=== PATIENT | male | born 1945 | race Caucasian/White ===

== ENCOUNTER 2020-10-25 19:05 | Emergency (ER) | payer BC, MEDICARE ==
[~2020-10-25] VITALS: Ht 193 cm; Wt 80.1 kg
[~2020-10-25 19:05] MED LIST: ASP81TEC PO; ATRV10T PO; C250T PO; CHOL10003 PO; MULT-608 PO; OMG1KC PO
--- NOTE | 2020-10-25 19:21 | ED Upper Extremity ---
General Chief Complaint: Upper Extremity Stated Complaint: LEFT ELBOW INJURY Source: patient History of Present Illness Date Seen by Provider: Oct 25, 2020 Time Seen by Provider: 19:14 Initial Comments 75 yo male that fell yesterday when one of his bird dogs ran after a cat. He was knocked down and hit back of his head and left elbow. He did not lose consciousness. He was able to get bleeding controlled on his scalp and on the left elbow after holding pressure. Then today he was working outdoors all day and did fine without bleeding or problems. Tonight he went to [employer] for supper and accidentally hit his elbow and it started bleeding again. He was unable to get the bleeding to stop tonight. He had his last tetanus 3-4 years ago. He takes a baby aspirin a day but no stronger blood thinners. Location Injury Occurred: Home Onset: yesterday Severity: mild Pain/Injury Location: left elbow Method of Injury: fell Modifying Factors: Worse With Movement (bleeds more as he moves his arm) Allergies and Home Medications Allergies Coded Allergies: No Known Drug Allergies (Unverified , 03/11/11) Home Medications Ascorbic Acid 250 Mg Tab, 500 MG PO DAILY, (Reported) Aspirin 81 Mg Tabec, 81 MG PO DAILY, (Reported) Atorvastatin Calcium 10 Mg Tablet, 1 EACH PO HS, (Reported) Cephalexin 500 Mg Capsule, 500 MG PO TID Prescribed by: LYNN ANGULO on 10/25/202020 Cholecalciferol 1,000 Unit Tablet, 1,000 UNIT PO DAILY, (Reported) Multivitamins 1 Tab Tablet, 1 TAB PO DAILY, (Reported) [place] 3 Polyunsat Fatty Acids 1,000 Mg Cap, 1,000 MG PO BID, (Reported) Patient Home Medication List Home Medication List Reviewed: Yes Review of Systems Constitutional: No chills, No fever EENTM: other (superficial abrasion on his scalp from fall yesterday); No epistaxis, No nose congestion Respiratory: no symptoms reported Cardiovascular: no symptoms reported Gastrointestinal: no symptoms reported Genitourinary: no symptoms reported Musculoskeletal: No joint pain (no pain at elbow joint), No muscle pain Skin: see HPI, other (laceration to left elbow) Psychiatric/Neurological: Denies Headache, Denies Numbness, Denies Paresthesia, Denies Seizure Past Vzkiowa-Capool-Wmkaol Hx Past Med/Social Hx: Reviewed Nursing Past Med/Soc Hx Past Medical History Respiratory: No Cardiac: No Neurological: No Reproductive Disorders: No Musculoskeletal: Yes Arthritis Physical Exam Vital Signs Vital Signs - First Documented 10/25/20 19:20 Temp 36.9 Pulse 71 Resp 16 B/P (MAP) 155/84 (107) Pulse Ox 97 O2 Delivery Room Air Capillary Refill : Height, Weight, BMI Height: '" Weight: lbs. oz. kg; BMI Method: General Appearance: WD/WN, no apparent distress HEENT: PERRL/EOMI, pharynx normal, other (no CSF otorrhea or rhinorrhea. superficial abrasions to occiput and top of head) Neck: non-tender, full range of motion, supple, normal inspection Cardiovascular: normal peripheral pulses Elbow/Forearm: non-tender, swelling (mild swelling and 2.6 cm stellate laceration with skin flap on left elbow) Neurologic/Tendon: normal sensation, normal motor functions, normal tendon functions Neurologic/Psychiatric: crown blocker II-XII nml as tested, no motor/sensory deficits, alert, oriented x 3 Skin: normal color, warm/dry Procedures/Interventions Wound Location: Upper Extremities (left elbow) Wound Length (cm): 2.6 Wound's Depth, Shape: stellate, sub Q Wound Explored: clean Anesthesia: Lidocaine w/ Epi (2%) Volume Anesthetic (ccs): 6 Suture: Ethlion Suture Size: 4-0 Number of Sutures: 4 Layer Closure?: 1 Sterile Dressing Applied?: Yes Progress After obtaining verbal informed consent the patient had 2% lidocaine with epinephrine injected in the wound for anesthesia. He had a total of 5 mL injected with good anesthetic effect. The wound was further cleaned with chlorhexidine surgical scrub soap and direct visualization of the wound. No o bvious foreign body seen. No foreign body felt or palpated with instruments. Patient tolerated this well without any immediate complication. The wound edges were loosely approximated with 3 stitches along the main laceration and 1 stitch placed in the skin flap to help tack it in place. These were all simple interrupted stitches of 4-0 Ethilon. Patient tolerated procedure well without any immediate complication. Counseled on follow-up and return precautions. Advised to have stitches out in approximately 2 weeks or more to allow for healing over a joint surface. Started on cephalexin antibiotics tonight and will prescribe a week of 500 mg 3 times daily to help try and prevent infection. Progress/Results/Core Measures Results/Orders My Orders Orders - LYNN ANGULO MD Lidocaine/Epi 2% 1:100,000 (Xylocaine/Ep (10/25/20 19:42) Suture Set At Bedside (10/25/20 19:42) Wound Dressing-Ed (10/25/20 19:42) Cephalexin Capsule (Keflex Capsule) (10/25/20 20:15) Vital Signs/I&O 10/25/20 19:20 Temp 36.9 Pulse 71 Resp 16 B/P (MAP) 155/84 (107) Pulse Ox 97 O2 Delivery Room Air Progress Progress Note #1: Progress Note The laceration was bleeding and despite being cleaned and having pressure held by the nurse it continued oozing and bleeding. Counseled patient that without at least loosely closing the laceration that he ran a bigger risk for infection because it does gape open and would continue to break open with movement as it is over a joint surface. His tetanus is up-to-date. Progress Note #2: Progress Note Wound edges were loosely approximated with 3 stitches and then a fourth stitch was placed to help tack down the skin flap. He tolerated procedure well without any immediate complication. There were no obvious foreign bodies on visual exam. Started on Keflex tonight continue with a weeks worth of antibiotics to help try and prevent infection. Counseled on follow-up and return precautions. Advised to have stitches out after approximately 2 weeks. Departure Impression Primary Impression: Laceration of left elbow without foreign body Qualified Codes: S51.012A - Laceration without foreign body of left elbow, initial encounter Disposition: 01 HOME, SELF-CARE Condition: Stable Departure-Patient Inst. Decision time for Depature: 20:21 Referrals: NO,LOCAL PHYSICIAN (PCP) Primary Care Physician FADIA ESTEVEZ MD Patient Instructions: Laceration Repair With Stitches ED, Wound Care ED Add. Discharge Instructions: Keep clean, dry and covered for first 24 hours. Then you may remove the dressing and wash with soap and water but do not soak it. May apply antibiotic ointment and dressing to help keep it covered and clean at work or when might get dirty For next 2-3 nights you may try to elevate your elbow above heart level when sleeping and use ice 15-20 minutes every few hours as needed for pain and swelling. Take the antibiotics to help try and prevent infection but if you have increasing redness running up your arm, fever over 101 F, or pus draining from the wound then seek medical care as you may need IV antibiotics. The stitches may be removed after 14 days. All discharge instructions reviewed with patient and/or family. Voiced understanding. Scripts Cephalexin (Cephalexin) 500 Mg Capsule 500 MG PO TID for elbow laceration for 7 Days, #21 CAP 0 Refills Prov: LYNN ANGULO MD 10/25/20 Images Extremities-Upper 1 - Laceration (Stellate Y-shaped laceration into the subcutaneous tissue on the left elbow with a skin flap. 2.6 cm total length of laceration.) LYNN ANGULO MD Oct 25, 2020 19:21
[2020-10-25] MEDS ORDERED: LIDOCAINE/EPI 2% 1:100,00 (XYLOCAINE) 20 ML VIAL INJ STA (19:42)
[2020-10-25] MEDS ORDERED: CEPHALEXIN 250 MG (KEFLEX) CAP PO STA (20:15)
[2020-10-25] MEDS ORDERED: CEPH500C PO (20:21)
[2020-10-25 20:24] VITALS: BP 155/84
== END 2020-10-25 20:24 | disposition home or self-care (01) ==
LOC: EDUNIT# 19:05 → ER FS 19:09
DX: S51.012A Laceration without foreign body of left elbow, initial encounter (principal); S00.81XA Abrasion of other part of head, initial encounter; I10 Essential (primary) hypertension; Z79.82 Long term (current) use of aspirin; W22.8XXA Striking against or struck by other objects, initial encounter
CPT/HCPCS: 12002

== ENCOUNTER → 2021-03-31 | Outpatient (CLI) | payer BC, MEDICARE ==
[~2021-03-31] MED LIST changes: +CEPH500C PO
[2021-03-31 12:23] LABS: HEMATOCRIT 45 % (40-54); HEMOGLOBIN 15.2 g/dL (13.3-17.7); MEAN CORPUSCULAR HEMOGLOBIN 31 pg (25-34); MEAN CORPUSCULAR HGB CONC 34 g/dL (32-36); MEAN CORPUSCULAR VOLUME 91 fL (80-99); WHITE BLOOD COUNT 5.7 10^3/uL (4.3-11.0)
[2021-03-31 12:24] LABS: BASOPHILS % (AUTO) 0 % (0-10); EOSINOPHILS % (AUTO) 0 % (0-10); LYMPHOCYTES # (AUTO) 0.8 X 10^3 (1.0-4.0); LYMPHOCYTES % (AUTO) 14 % (12-44); MEAN PLATELET VOLUME 9.3 fL (9.0-12.2); MONOCYTES # (AUTO) 0.6 X 10^3 (0.0-1.0); MONOCYTES % (AUTO) 10 % (0-12); NEUTROPHILS # (AUTO) 4.3 X 10^3 (1.8-7.8); NEUTROPHILS % (AUTO) 76 % (42-75); PLATELET COUNT 205 10^3/uL (130-400)
[2021-03-31 12:25] LABS: ALBUMIN 3.7 GM/DL (3.2-4.5); BILIRUBIN,TOTAL 0.5 MG/DL (0.1-1.0); CALCIUM 8.6 MG/DL (8.5-10.1); CREATININE SERUM 0.9 MG/DL (0.60-1.30); POTASSIUM 4.2 MMOL/L (3.6-5.0); TOTAL PROTEIN 6.7 GM/DL (6.4-8.2)
== END ==
LOC: LAB FS 10:53
PROVIDERS: ATTEND Family Medicine
DX: U07.1 COVID-19 (principal)
CPT/HCPCS: 36415; 80053; 84484; 85025; 87636

== ENCOUNTER 2021-04-10 14:34 | Inpatient (IN) | payer BC, MEDICARE ==
[~2021-04-10] VITALS: Ht 195 cm; Wt 107.2 kg
--- OUTSIDE RECORDS SUMMARY | 2021-04-10 14:39 | XMS REPORT | Clinical Summary ---
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
--- NOTE | 2021-04-10 14:46 | ED Respiratory ---
General Chief Complaint: COVID19 Suspect/Confirmed Stated Complaint: SOB; COVID+ History of Present Illness Date Seen by Provider: Apr 10, 2021 Time Seen by Provider: 14:43 Initial Comments 75-year-old male presents via EMS with shortness of air and low oxygen level. History of present illness, diagnosed with Covid approximate 3 weeks ago (Dx at local Urgent care clinic?) and has been doing ok with minimal effect until the past few days when he started feeling poorly, has not seen his doctor but did take a Medrol Dosepak about 1 week ago. Last night he was started on oxygen (seemingly without a prescription) and he felt somewhat better. On EMS arrival his oxygen was not on correctly and saturations were in the low 80s on their initial assessment. Feeling better on arrival w oxygen, no other tx given. Allergies and Home Medications Allergies Coded Allergies: No Known Drug Allergies (Unverified , 03/11/11) Patient Home Medication List Home Medication List Reviewed: Yes Ascorbic Acid (Vitamin C) 250 Mg Tab, 500 MG PO DAILY, (Reported) Entered as Reported by: ABEBE RIVAS on 03/11/11816 Aspirin (Aspirin Ec 81 Mg) 81 Mg Tabec, 81 MG PO DAILY, (Reported) Entered as Reported by: ABEBE RIVAS on 03/11/11816 Atorvastatin Calcium (Lipitor 10 Mg) 10 Mg Tablet, 1 EACH PO HS, (Reported) Entered as Reported by: ABEBE RIVAS on 03/11/11816 Cephalexin (Cephalexin) 500 Mg Capsule, 500 MG PO TID Prescribed by: LYNN ANGULO on 10/25/202020 Cholecalciferol (Vitamin D) 1,000 Unit Tablet, 1,000 UNIT PO DAILY, (Reported) Entered as Reported by: ABEBE RIVAS on 03/11/11816 Multivitamins (Multiple Vitamin) 1 Tab Tablet, 1 TAB PO DAILY, (Reported) Entered as Reported by: ABEBE RIVAS on 03/11/11816 [place] 3 Polyunsat Fatty Acids (Fish Oil) 1,000 Mg Cap, 1,000 MG PO BID, (Reported) Entered as Reported by: ABEBE RIVAS on 03/11/11816 Review of Systems Review of Systems Constitutional: No chills, No fever; malaise, weakness EENTM: no symptoms reported Respiratory: No cough; short of breath; No wheezing Cardiovascular: No chest pain, No edema, No palpitations Gastrointestinal: No abdominal pain, No constipation, No diarrhea; loss of appetite; No nausea, No vomiting Musculoskeletal: No back pain, No joint pain Skin: No change in color, No lesions Psychiatric/Neurological: Denies Depressed, Denies Seizure Past Kgjyajz-Bwiqgi-Ltezkg Hx Patient Social History Tobacco Use?: No Seasonal Allergies Seasonal Allergies: No Past Medical History Surgeries: No Respiratory: No Cardiac: No Neurological: No Reproductive Disorders: No Sexually Transmitted Disease: No Genitourinary: No Gastrointestinal: No Musculoskeletal: Yes Arthritis Endocrine: No Cancer: No Psychosocial: No Integumentary: No Blood Disorders: No Physical Exam Vital Signs - First Documented 04/10/21 14:34 Temp 37.0 Pulse 106 Resp 15 B/P (MAP) 107/68 (81) Pulse Ox 89 O2 Delivery Nasal Cannula O2 Flow Rate 6.00 Capillary Refill : Height: '" Weight: lbs. oz. kg; 21.00 BMI Method: General Appearance: WD/WN, no apparent distress HEENT: PERRL/EOMI, normal ENT inspection Neck: non-tender, supple Respiratory: chest non-tender, lungs clear, normal breath sounds, no respiratory distress, no accessory muscle use Cardiovascular: no edema, no JVD, tachycardia Gastrointestinal: normal bowel sounds, non tender, soft Extremities: non-tender, no pedal edema Neurologic/Psychiatric: no motor/sensory deficits, alert, normal mood/affect, oriented x 3 Skin: normal color, warm/dry Focused Exam Lactate Level 04/10/21 14:45: Lactic Acid Level 1.79 Lactic Acid Level Laboratory Tests Test 04/10/21 14:45 Lactic Acid Level 1.79 MMOL/L (0.50-2.00) Procedures/Interventions Suture Size: 4-0 Progress/Results/Core Measures Suspected Sepsis SIRS Temperature: Pulse: Respiratory Rate: Laboratory Tests 04/10/21 14:45: White Blood Count 15.5H Blood Pressure / Mean: 04/10/21 14:45: Lactic Acid Level 1.79 Laboratory Tests 04/10/21 14:45: Creatinine 1.35H, Platelet Count 312, Total Bilirubin 1.0 Results/Orders Lab Results Laboratory Tests Test 04/10/21 14:45 Range/Units White Blood Count 15.5 H 4.3-11.0 10^3/uL Red Blood Count 4.76 4.30-5.52 10^6/uL Hemoglobin 14.8 13.3-17.7 g/dL Hematocrit 44 40-54 % Mean Corpuscular Volume 91 80-99 fL Mean Corpuscular Hemoglobin 31 25-34 pg Mean Corpuscular Hemoglobin Concent 34 32-36 g/dL Red Cell Distribution Width 13.7 10.0-14.5 % Platelet Count 312 130-400 10^3/uL Mean Platelet Volume 9.9 9.0-12.2 fL Immature Granulocyte % (Auto) 2 % Neutrophils (%) (Auto) 91 H 42-75 % Lymphocytes (%) (Auto) 3 L 12-44 % Monocytes (%) (Auto) 5 0-12 % Eosinophils (%) (Auto) 0 0-10 % Basophils (%) (Auto) 0 0-10 % Neutrophils # (Auto) 14.1 H 1.8-7.8 X 10^3 Lymphocytes # (Auto) 0.4 L 1.0-4.0 X 10^3 Monocytes # (Auto) 0.7 0.0-1.0 X 10^3 Eosinophils # (Auto) 0.0 0.0-0.3 10^3/uL Basophils # (Auto) 0.0 0.0-0.1 10^3/uL Immature Granulocyte # (Auto) 0.2 H 0.0-0.1 10^3/uL Neutrophils % (Manual) 94 % Lymphocytes % (Manual) 4 % Monocytes % (Manual) 2 % D-Dimer > 20.00 H 0.00-0.49 UG/ML Sodium Level 143 135-145 MMOL/L Potassium Level 3.3 L 3.6-5.0 MMOL/L Chloride Level 111 H 98-107 MMOL/L Carbon Dioxide Level 20 L 21-32 MMOL/L Anion Gap 12 5-14 MMOL/L Blood Urea Nitrogen 44 H 7-18 MG/DL Creatinine 1.35 H 0.60-1.30 MG/DL Estimat Glomerular Filtration Rate 52 BUN/Creatinine Ratio 33 Glucose Level 170 H 70-105 MG/DL Lactic Acid Level 1.79 0.50-2.00 MMOL/L Calcium Level 8.1 L 8.5-10.1 MG/DL Corrected Calcium 9.1 8.5-10.1 MG/DL Total Bilirubin 1.0 0.1-1.0 MG/DL Aspartate Amino Transf (AST/SGOT) 45 H 5-34 U/L Alanine Aminotransferase (ALT/SGPT) 57 H 0-55 U/L Alkaline Phosphatase 130 40-136 U/L Troponin I < 0.30 <0.30 NG/ML C-Reactive Protein 19.04 H <0.50 MG/DL Pro-B-Type Natriuretic Peptide 1797.0 H <75.0 PG/ML Total Protein 5.9 L 6.4-8.2 GM/DL Albumin 2.7 L 3.2-4.5 GM/DL My Orders Orders - ROVENSTINE,CHRISTIAN L DO Troponin I Fs (04/10/21 14:46) Probnp Fs (04/10/21 14:46) Chest 1 View Ap/Pa Only (04/10/21 14:46) Cbc With Automated Diff (04/10/21 14:46) Comprehensive Metabolic Panel (04/10/21 14:46) Crp Fs (04/10/21 14:46) Lactic Acid Analyzer (04/10/21 14:46) Fibrin Degradation Products (04/10/21 14:46) Dexamethasone Injection (Decadron Inje (04/10/21 15:00) Ns Iv 1000 Ml (Sodium Chloride 0.9%) (04/10/21 15:00) Procalcitonin (Pct) (04/10/21 14:45) Manual Differential (04/10/21 14:45) Ct Angio Chest W (04/10/21 15:28) Iohexol Injection (Omnipaque 350 Mg/Ml 1 (04/10/21 15:30) Received Contrast (Hold Metformin- Contr (04/10/21 15:30) Sodium Chloride Flush (Catheter Flush Sy (04/10/21 15:30) Ns (Ivpb) (Sodium Chloride 0.9% Ivpb Bag (04/10/21 15:30) Ceftriaxone (Rocephin) (04/10/21 16:30) Azithromycin Injection (Zithromax Inject (04/10/21 16:30) Enoxaparin Injection (Lovenox Injection) (04/10/21 16:30) Covid-19 External Lab Results (04/10/21 16:33) Medications Given in ED Current Medications Medications Dose Ordered Sig/Avani Route Start Time Stop Time Status Last Admin Dose Admin Azithromycin 500 mg/Sodium Chloride 250 ml @ 250 mls/hr ONCE ONCE IV 04/10/21 16:30 04/10/21 17:29 DC 04/10/21 17:12 250 MLS/HR Ceftriaxone Sodium 1000 mg/ Sterile Water 10 ml @ 200 mls/hr ONCE ONCE IV 04/10/21 16:30 04/10/21 16:33 DC 04/10/21 17:12 200 MLS/HR Dexamethasone Sodium Phosphate 10 mg ONCE ONCE IV 04/10/21 15:00 04/10/21 15:01 DC 04/10/21 14:57 10 MG Enoxaparin Sodium 80 mg ONCE ONCE SC 04/10/21 16:30 04/10/21 16:33 DC 04/10/21 17:12 80 MG Iohexol 100 ml ONCE ONCE IV 04/10/21 15:30 04/10/21 15:31 DC 04/10/21 15:54 100 ML Sodium Chloride 10 ml NEEDED PRN IV 04/10/21 15:30 04/10/21 15:54 10 ML Sodium Chloride 100 ml ONCE ONCE IV 04/10/21 15:30 04/10/21 15:31 DC 04/10/21 15:54 100 ML Vital Signs/I&O 04/10/21 04/10/21 04/10/21 14:34 16:45 16:45 Temp 37.0 Pulse 106 105 Resp 15 15 15 B/P (MAP) 107/68 (81) 101/64 101/64 Pulse Ox 89 93 93 O2 Delivery Nasal Cannula Nasal Cannula Nasal Cannula O2 Flow Rate 6.00 6.00 6.00 Capillary Refill : Progress Note : Progress Note Rapid acceptance to [facility], then patient talked to family members who wanted him to be transferred to [facility]. [facility] and "no [facility] available", relayed to patient. He talked to same family member who then requested transfer to [facility]. [place] [facility]". Discussed w pt and explained that beds have been scarce for a long time and that he would get more than adequate care in [place], he agrees to admission (again) to [facility]. Patient is his own decision maker, says he just wants to make family happy with decision. Diagnostic Imaging Diagonstic Imaging: CT Comments DATE: April 10, 2021. COMPARISON: Chest radiographs April 10, 2021. INDICATION: 75-year-old male, shortness of breath, hypoxia. FINDINGS: There is multifocal patchy bilateral lung consolidation. There is no identified pulmonary nodule. There is no lung mass. There is no pneumothorax. There is no pleural effusion. The central airways are patent. There is no identified pulmonary embolus. The main pulmonary artery diameter is within normal limits. The heart is not enlarged. There is no pericardial effusion. There is no abnormally enlarged mediastinal, hilar or axillary lymph node meeting CT size criteria for adenopathy. The imaged portions of the upper abdomen are grossly unremarkable. There are multilevel degenerative changes of the spine. There is no identified acute bony abnormality. IMPRESSION: CT chest: 1. No identified pulmonary embolus. 2. Multifocal patchy bilateral lung consolidation most likely relating to Covid-19 infection and multifocal pneumonia/pneumonitis. Dictated on workstation # [id number] Dict: 04/10/21 1605 Trans: 04/10/21 1612 [facility] [id number] Interpreted by: CRISTINA JUNG MD Electronically signed by: Departure Communication (Admissions) Time/Spoke to Admitting Phy: 16:[address] Kirkpatrick who accepts for admission. Discussed HPI and ER labs/ CT results. Advised Abx: Juan Manuel pt stable on 6 liters/NC w sat = 90-92% Impression Primary Impression: Pneumonia due to 2019-nCoV Additional Impression: Hypoxia Disposition: 30 STILL A PATIENT Condition: Improved Admissions Decision to Admit Reason: Admit from ER (General) Decision to Admit/Date: Apr 10, 2021 Time/Decision to Admit Time: 14:45 Departure-Patient Inst. Referrals: NO,LOCAL PHYSICIAN (PCP/Family) Primary Care Physician CHRISTIAN DIOR DO Apr 10, 2021 14:46
[2021-04-10 14:59] LABS: BASOPHILS % (AUTO) 0 % (0-10); EOSINOPHILS % (AUTO) 0 % (0-10); HEMATOCRIT 44 % (40-54); HEMOGLOBIN 14.8 g/dL (13.3-17.7); LYMPHOCYTES # (AUTO) 0.4 X 10^3 (1.0-4.0); LYMPHOCYTES % (AUTO) 3 % (12-44); MEAN CORPUSCULAR HEMOGLOBIN 31 pg (25-34); MEAN CORPUSCULAR HGB CONC 34 g/dL (32-36); MEAN CORPUSCULAR VOLUME 91 fL (80-99); MEAN PLATELET VOLUME 9.9 fL (9.0-12.2); MONOCYTES # (AUTO) 0.7 X 10^3 (0.0-1.0); MONOCYTES % (AUTO) 5 % (0-12); NEUTROPHILS # (AUTO) 14.1 X 10^3 (1.8-7.8); NEUTROPHILS % (AUTO) 91 % (42-75); PLATELET COUNT 312 10^3/uL (130-400); WHITE BLOOD COUNT 15.5 10^3/uL (4.3-11.0)
[2021-04-10] MEDS ORDERED: NS IV 1000 ML 1,000 ML IV SCH (15:00)
[2021-04-10 15:14] LABS: ALANINE AMINOTRANSFERASE 57 U/L (0-55); ALBUMIN 2.7 GM/DL (3.2-4.5); ALKALINE PHOSPHATASE 130 U/L (40-136); BUN/CREATININE RATIO 33; CALCIUM 8.1 MG/DL (8.5-10.1); CARBON DIOXIDE 20 MMOL/L (21-32); CHLORIDE 111 MMOL/L (98-107); CREATININE SERUM 1.35 MG/DL (0.60-1.30); GFR ESTIMATED 52; GLUCOSE 170 MG/DL (70-105); POTASSIUM 3.3 MMOL/L (3.6-5.0); SODIUM 143 MMOL/L (135-145); TOTAL PROTEIN 5.9 GM/DL (6.4-8.2)
--- NOTE | 2021-04-10 15:15 | Diagnostic Imaging Report ---
INDICATION: Shortness of breath and hypoxia. History of Covid pneumonia. FINDINGS: There are likely chronic interstitial changes within the lungs. There also, however, are extensive regions of interstitial and alveolar consolidation present compatible with pneumonia, most advanced within the upper aspect of the left lobe. There is more patchy involvement throughout the right lung. There is no large effusion. There is no pneumothorax. Heart size prominent. There is no finding of an acute osseous abnormality. IMPRESSION: There are likely chronic interstitial changes present within the lungs. There are multifocal regions of interstitial and alveolar opacification compatible with pneumonia most advanced and confluent within the left upper lung. There is more patchy involvement throughout the right lung. There is no large effusion or evidence of a pneumothorax. Dictated by: Dictated on workstation # [id number]
[2021-04-10] MEDS ORDERED: CATHETER FLUSH 10 ML SYR IV PRN (15:30)
[2021-04-10] MEDS ORDERED: HOLD METFORMIN - RECEIVED CONTRAST 20 ML VIAL IV SCH (15:30)
[2021-04-10] MEDS ORDERED: IOHEXOL 350 MG/ML 100 ML (OMNIPAQUE 350) VIAL IV ONE (15:30)
[2021-04-10] MEDS ORDERED: NS 100 ML (IVPB) BAG IV ONE (15:30)
--- NOTE | 2021-04-10 16:13 | Diagnostic Imaging Report ---
PROCEDURE: CT angiography of the chest with contrast. TECHNIQUE: Multiple contiguous axial images were obtained through the chest after uneventful bolus administration of intravenous contrast. 3D reconstructed CTA MIP acquisitions were also performed. Auto Exposure Controls were utilized during the CT exam to meet ALARA standards for radiation dose reduction. DATE: April 10, 2021. COMPARISON: Chest radiographs April 10, 2021. INDICATION: 75-year-old male, shortness of breath, hypoxia. FINDINGS: There is multifocal patchy bilateral lung consolidation. There is no identified pulmonary nodule. There is no lung mass. There is no pneumothorax. There is no pleural effusion. The central airways are patent. There is no identified pulmonary embolus. The main pulmonary artery diameter is within normal limits. The heart is not enlarged. There is no pericardial effusion. There is no abnormally enlarged mediastinal, hilar or axillary lymph node meeting CT size criteria for adenopathy. The imaged portions of the upper abdomen are grossly unremarkable. There are multilevel degenerative changes of the spine. There is no identified acute bony abnormality. IMPRESSION: CT chest: 1. No identified pulmonary embolus. 2. Multifocal patchy bilateral lung consolidation most likely relating to Covid-19 infection and multifocal pneumonia/pneumonitis. Dictated by: Dictated on workstation # [id number]
[2021-04-10] MEDS ORDERED: AZITHROMYCIN INJECTION 500 MG in NS (IVPB) 250 ML IV ONE (16:30)
[2021-04-10] MEDS ORDERED: cefTRIAXone 1,000 MG in WATER (STERILE) FOR INJECTION 10 ML IV ONE (16:30)
[2021-04-10] MEDS ORDERED: ENOXAPARIN 80 MG/0.8 ML (LOVENOX) SYR SC ONE (16:30)
[2021-04-10 16:31] LABS: LYMPHOCYTES % (MANUAL) 4 %; MONOCYTES % (MANUAL) 2 %; NEUTROPHILS % (MANUAL) 94 %
[2021-04-10 19:01] VITALS: BP 120/89
[2021-04-10 19:53] VITALS: BP 107/68
[2021-04-10 20:00] VITALS: BP 99/46
[2021-04-10] MEDS ORDERED: RT-ALBUTEROL HFA 8.5 GM INHALER IH PRN (20:15)
[2021-04-10] MEDS: NS IV 1000 ML 1,000 ML IV SCH (20:17)
[2021-04-10] MEDS: RT-ALBUTEROL HFA 8.5 GM INHALER IH SCH (20:46)
[2021-04-10] MEDS ORDERED: LORazepam 0.5 MG (ATIVAN) TABLET PO ONE (22:45)
[2021-04-11] VITALS (9 sets, daily range): BP systolic 82–110; BP diastolic 52–87
[2021-04-11] MEDS: NS IV 1000 ML 1,000 ML IV SCH ×3 (00:19→22:02)
[2021-04-11] MEDS: RT-ALBUTEROL HFA 8.5 GM INHALER IH SCH ×6 (02:21→22:02)
[2021-04-11] MEDS: ENOXAPARIN 80 MG/0.8 ML (LOVENOX) SYR SC SCH ×2 (04:56→16:42)
[2021-04-11 05:54] LABS: BASOPHILS % (AUTO) 0 % (0-10); EOSINOPHILS % (AUTO) 0 % (0-10); HEMATOCRIT 45 % (40-54); HEMOGLOBIN 14.7 g/dL (13.3-17.7); LYMPHOCYTES # (AUTO) 0.5 10^3/uL (1.0-4.0); LYMPHOCYTES % (AUTO) 4 % (12-44); MEAN CORPUSCULAR HEMOGLOBIN 31 pg (25-34); MEAN CORPUSCULAR HGB CONC 33 g/dL (32-36); MEAN CORPUSCULAR VOLUME 95 fL (80-99); MONOCYTES # (AUTO) 0.4 10^3/uL (0.0-1.0); MONOCYTES % (AUTO) 3 % (0-12); NEUTROPHILS # (AUTO) 11.2 10^3/uL (1.8-7.8); NEUTROPHILS % (AUTO) 91 % (42-75); PLATELET COUNT 300 10^3/uL (130-400); WHITE BLOOD COUNT 12.2 10^3/uL (4.3-11.0)
[2021-04-11 06:02] LABS: POTASSIUM 3.9 MMOL/L (3.6-5.0)
[2021-04-11 06:03] LABS: CALCIUM 7.9 MG/DL (8.5-10.1)
--- NOTE | 2021-04-11 14:57 | History & Physical-Hospitalist ---
History of Present Illness HPI/Chief Complaint Saud Boston is a 75 year old male with PMH HLD who presented with shortness of breath. He was reportedly diagnosed with COVID three weeks ago. He had been doing ok until a few days ago when he started getting short of breath. He has had fever and cough. He denies chest pain. He denies nausea and vomiting. He denies diarrhea. He would be ok with being on the ventilator if needed. When asked about code status, he says, "Just try for one round and then let me go." Source: patient Exam Limitations: no limitations Date Seen 04/11/21 Time Seen by a Provider: 09:40 Attending Physician Adele Omer MD PCP No,Local Physician Referring Physician Date of Admission Apr 10, 2021 at 18:33 Home Medications & Allergies Home Medications Reviewed patient Home Medication Reconciliation performed by pharmacy medication reconciliations ammonia technician and/or nursing. Patients Allergies have been reviewed. Allergies Allergies Coded Allergies No Known Drug Allergies (Unverified03/11/11) Past Ghxfdyc-Pgqfgf-Xocdqg Hx Patient Social History Tobacco Use?: No Smoking Status: Former Smoker Substance use?: No Alcohol Use?: Yes Alcohol type: Beer Additional alcohol type: A BEER A DAY Alcohol Frequency: Daily Pt feels they are or have been: No Immunizations Up To Date First/Initial COVID19 Vaccinat: 4 WEEKS AGO Seasonal Allergies Seasonal Allergies: No Current Status Advance Directives: No Communicates: Verbally Primary Language: Maldivian Preferred Spoken Language: Maldivian Is interpretation needed?: No Sensory deficits: Vision impairment Past Medical History High Cholesterol Sexually Transmitted Disease: No Arthritis Blood Disorders: No Family Medical History No Pertinent Family Hx Review of Systems Constitutional: fever, malaise EENTM: no symptoms reported Respiratory: cough, short of breath Cardiovascular: no symptoms reported Gastrointestinal: no symptoms reported Genitourinary: no symptoms reported Musculoskeletal: no symptoms reported Skin: no symptoms reported Psychiatric/Neurological: No Symptoms Reported Physical Exam Physical Exam Vital Signs Vital Signs - First Documented 04/10/21 04/10/21 14:34 23:11 Temp 37.0 Pulse 106 Resp 15 B/P (MAP) 107/68 (81) Pulse Ox 89 O2 Delivery Nasal Cannula O2 Flow Rate 6.00 FiO2 75 Capillary Refill : Less Than 3 Seconds Height, Weight, BMI Height: '" Weight: lbs. oz. kg; 21.43 BMI Method: General Appearance: No Apparent Distress, WD/WN, Anxious HEENT: PERRL/EOMI, Pharynx Normal Respiratory: Lungs Clear, Normal Breath Sounds, No Respiratory Distress Cardiovascular: Regular Rate, Rhythm, No Edema, No Murmur Gastrointestinal: Normal Bowel Sounds, Non Tender, Soft Extremity: Normal Inspection, Non Tender, No Pedal Edema Neurologic/Psychiatric: Alert, Oriented x3, No Motor/Sensory Deficits Skin: Normal Color, Warm/Dry Results Results/Procedures Labs Laboratory Tests 04/10/21 14:45 04/11/21 05:15 Patient resulted labs reviewed. Imaging: Reviewed Imaging Report Assessment/Plan Admission Diagnosis Acute respiratory failure due to COVID-19 Admission Status: Inpatient Order (span 2 midnights) Reason for Inpatient Admission: Respiratory failure Assessment and Plan Acute respiratory failure due to COVID-19 Hypercoagulable state associated with COVID-19 Supplemental oxygen as needed, currently on Vapotherm Started on Decadron Remdesivir and Actemra not indicated due to length of illness D-dimer elevated Started on therapeutic Lovenox Procal normal Antibiotics not given Consult pulmonology HAYDE Resolved with IV fluids AFib Rate well controlled Already on therapeutic Lovenox Consult cardiology Diagnosis/Problems Diagnosis/Problems (1) Acute respiratory failure due to COVID-19 Status: Acute (2) Hypercoagulable state associated with COVID-19 Status: Acute (3) HAYDE (acute kidney injury) Status: Acute (4) Afib Status: Acute ADELE OMER MD Apr 11, 2021 14:57
[2021-04-11] MEDS: cefTRIAXone 1,000 MG/SWFI 10 ML IV PUSH IV SCH ×2 (16:42)
[2021-04-11] MEDS: AZITHROMYCIN 500 MG/NS 250 ML IVPB IV SCH ×2 (16:42)
[2021-04-12] MEDS: RT-ALBUTEROL HFA 8.5 GM INHALER IH SCH ×6 (02:41→21:04)
[2021-04-12 02:55] VITALS: BP 96/58
[2021-04-12] MEDS: ENOXAPARIN 80 MG/0.8 ML (LOVENOX) SYR SC SCH (05:44)
[2021-04-12 07:46] VITALS: BP 105/77
[2021-04-12] MEDS: NS IV 1000 ML 1,000 ML IV SCH ×2 (08:10→20:59)
--- NOTE | 2021-04-12 08:18 | Progress Note - Hospitalist ---
Subjective HPI/CC On Admission Date Seen by Provider: Apr 12, 2021 Time Seen by Provider: 12:00 Saud Boston is a 75 year old male with PMH HLD who presented with shortness of breath. He was reportedly diagnosed with COVID three weeks ago. He had been doing ok until a few days ago when he started getting short of breath. He has had fever and cough. He denies chest pain. He denies nausea and vomiting. He denies diarrhea. He would be ok with being on the ventilator if needed. When asked about code status, he says, "Just try for one round and then let me go. Subjective/Events-last exam Patient about the same High risk for intubation Proning himself Vapotherm at 35 L and 85% Incentive spirometer maintain Soft blood pressure noted Review of Systems General: Fatigue Pulmonary: Dyspnea Focused Exam Lactate Level 04/10/21 14:45: Lactic Acid Level 1.79 Objective Exam Vital Signs Vital Signs Date Time Temp Pulse Resp B/P (MAP) Pulse Ox O2 Delivery O2 Flow Rate FiO2 04/12/21 16:30 92 Vapotherm 35.00 85 04/12/21 16:00 36.0 82 16 115/98 (104) Capillary Refill : Less Than 3 Seconds General Appearance: No Apparent Distress, WD/WN, Other (Sleeping prone) Respiratory: Decreased Breath Sounds Cardiovascular: Regular Rate, Rhythm Results/Procedures Lab Patient resulted labs reviewed. Imaging: Reviewed Imaging Report Assessment/Plan Assessment and Plan Assess & Plan/Chief Complaint Assessment: COVID-19 pneumonia Acute hypoxic respiratory failure Atrial fibrillation Hypercoagulable state on Lovenox therapeutic dose Plan: BiPAP and Vapotherm Supportive care Monitor closely COTY SHIPMAN DO Apr 12, 2021 08:18
[2021-04-12 11:46] VITALS: BP 103/68
--- NOTE | 2021-04-12 14:34 | Consultation-Cardiology ---
HPI-Cardiology Cardiology Consultation: Date of Consultation 04/12/21 Time Seen by a Provider: 13:50 Date of Admission Attending Physician Maggie Hardin DO Admitting Physician No,Local Physician Consulting Physician RONNIE RAMIREZ MD, MA, FACP, FACC, [facility], CCDS Physician requesting consult: Dr Kirkpatrick HPI: Chief Complaint: Reason for Cardiology consult: Shortness of breath HPI 75 yo man with several days of increasing shortness of breath, admitted to Dr Kirkpatrick / Dr Hardin on 04/11/21. His BNP has been elevated and he has been in A Fib. We have been asked to see him in consultation. He reports gen malaise. He denies cp or palp or syncope or swelling Review of Systems-Cardiology Review of Systems Constitutional: malaise; No weight loss, No weight gain Ears/Nose/Throat: No ear discharge, No nasal drainage, No recent hearing loss Respiratory: As described under HPI Cardiovascular: As described under HPI Gastrointestinal: No diarrhea, No nausea, No vomiting Genitourinary: No dysuria, No hematuria, No urine frequency changes Musculoskeletal: No back pain, No joint pain Skin: No rash, No ulcerations Psychiatric/Neurological: No seizure, No focal weakness, No syncope Hematologic: No bleeding abnormalities NLI-Agzuxj-Lnpsfi Hx Patient Social History Smoking Status: Former Smoker Have you traveled recently?: No Alcohol Use?: Yes Pt feels they are or have been: No Past Medical History PMH As described under Assessment. Family Medical History Family Medical History: He does not report fam h/o early CAD Allergies and Home Medications Allergies Coded Allergies: No Known Drug Allergies (Unverified , 03/11/11) Patient Home Medication List Home Medication List Reviewed: Yes Ascorbic Acid (Vitamin C) 250 Mg Tab, 500 MG PO DAILY, (Reported) Entered as Reported by: ABEBE RIVAS on 03/11/11816 Aspirin (Aspirin Ec 81 Mg) 81 Mg Tabec, 81 MG PO DAILY, (Reported) Entered as Reported by: ABEBE RIVAS on 03/11/11816 Last Action: Reviewed Atorvastatin Calcium (Lipitor 10 Mg) 10 Mg Tablet, 1 EACH PO HS, (Reported) Entered as Reported by: ABEBE RIVAS on 03/11/11816 Cephalexin (Cephalexin) 500 Mg Capsule, 500 MG PO TID Prescribed by: LYNN ANGULO on 10/25/202020 Cholecalciferol (Vitamin D) 1,000 Unit Tablet, 1,000 UNIT PO DAILY, (Reported) Entered as Reported by: ABEBE RIVAS on 03/11/11816 Multivitamins (Multiple Vitamin) 1 Tab Tablet, 1 TAB PO DAILY, (Reported) Entered as Reported by: ABEBE RIVAS on 03/11/11816 [place] 3 Polyunsat Fatty Acids (Fish Oil) 1,000 Mg Cap, 1,000 MG PO BID, (Reported) Entered as Reported by: ABEBE RIVAS on 03/11/11816 Physical Exam-Cardiology Physical Exam Vital Signs/I&O 04/12/21 04/12/21 04/12/21 04/12/21 02:41 02:44 02:55 03:05 Temp 36.5 Pulse 87 Resp 24 B/P (MAP) 96/58 (71) Pulse Ox 98 92 O2 Delivery Vapotherm Vapotherm Vapotherm Vapotherm O2 Flow Rate 35.00 35.00 35.00 35.00 80.00 85.00 85.00 FiO2 75 04/12/21 04/12/21 04/12/21 04/12/21 07:13 07:46 08:40 10:40 Temp 36.4 Pulse 82 Resp 22 B/P (MAP) 105/77 (86) Pulse Ox 92 95 89 92 O2 Delivery Vapotherm Vapotherm Vapotherm Vapotherm O2 Flow Rate 35.00 35.00 35.00 FiO2 80 80 85 04/12/21 11:46 Temp 36.5 Pulse 85 Resp 24 B/P (MAP) 103/68 (80) Pulse Ox 95 O2 Delivery Vapotherm 04/12/21 00:00 Intake Total 1490 ml Output Total 950 ml Balance 540 ml Capillary Refill : Less Than 3 Seconds Constitutional: AAO x 3, well-developed, well-nourished HEENT: EOMI, hearing is well preserved; No xanthelasmas are seen Respiratory: other (fair to good, bilateral air entry; scattered rhonchi; diminished air entry at lung bases) Cardiovascular: irregularly irregular, S1 and S2, systolic murmur (soft GUTIERREZ at card basee) Gastrointestinal: No tender; soft; No guarding, No rebound; audible bowel sounds Extremities: No clubbing, No cyanosis, No significant edema Neurologic/Psychiatric: oriented x 3, grossly intact (moves all limbs equally) Skin: No rash on exposed areas, No ulcerations on exposed areas Data Review Labs Laboratory Tests 04/10/21 14:45 04/11/21 05:15 A/P-Cardiology Assessment/Admission Diagnosis COVID-19 pneumonia A Fib of unknown duration (seen on admission on 04/11/21) Discussion and Recomendations * Hospitalist service is managing COVID-19 and pneumonia * Ventricular rate from A Fib appears controlled * Continue anticoag for stroke prophylaxis. Change from parenteral enoxaparin to oral apixaban * Monitor labs RONNIE RAMIREZ MD FACP FAC CCDS Apr 12, 2021 14:34
[2021-04-12 16:00] VITALS: BP 115/98
[2021-04-12] MEDS: cefTRIAXone 1,000 MG/SWFI 10 ML IV PUSH IV SCH ×2 (16:31)
[2021-04-12] MEDS: AZITHROMYCIN 500 MG/NS 250 ML IVPB IV SCH ×2 (16:32)
[2021-04-12 19:40] VITALS: BP 122/76
[2021-04-12] MEDS: APIXABAN 5 MG (ELIQUIS) TABLET PO SCH (20:59)
[2021-04-12 23:52] VITALS: BP 94/81
[2021-04-13] VITALS (21 sets, daily range): BP systolic 82–172; BP diastolic 51–96
[2021-04-13] MEDS ORDERED: ACETAMINOPHEN 500 MG TAB (TYLENOL) ONE (00:10)
[2021-04-13] MEDS: ALPRAZolam 0.25 MG (XANAX) TAB PO PRN (00:14)
[2021-04-13] MEDS: ACETAMINOPHEN 500 MG TAB (TYLENOL) PO PRN (00:15)
[2021-04-13] MEDS: RT-ALBUTEROL HFA 8.5 GM INHALER IH SCH ×6 (01:50→22:07)
[2021-04-13] MEDS: NS IV 1000 ML 1,000 ML IV SCH (05:39)
[2021-04-13 05:45] LABS: BASOPHILS % (AUTO) 0 % (0-10); EOSINOPHILS % (AUTO) 0 % (0-10); HEMATOCRIT 41 % (40-54); HEMOGLOBIN 13.3 g/dL (13.3-17.7); LYMPHOCYTES # (AUTO) 0.5 10^3/uL (1.0-4.0); LYMPHOCYTES % (AUTO) 3 % (12-44); MEAN CORPUSCULAR HEMOGLOBIN 31 pg (25-34); MEAN CORPUSCULAR HGB CONC 33 g/dL (32-36); MEAN CORPUSCULAR VOLUME 94 fL (80-99); MEAN PLATELET VOLUME 9.8 fL (9.0-12.2); MONOCYTES # (AUTO) 0.6 10^3/uL (0.0-1.0); MONOCYTES % (AUTO) 3 % (0-12); NEUTROPHILS # (AUTO) 17.4 10^3/uL (1.8-7.8); NEUTROPHILS % (AUTO) 93 % (42-75); PLATELET COUNT 279 10^3/uL (130-400); WHITE BLOOD COUNT 18.7 10^3/uL (4.3-11.0)
[2021-04-13 06:00] LABS: ALBUMIN 2.5 GM/DL (3.2-4.5); POTASSIUM 4.1 MMOL/L (3.6-5.0)
[2021-04-13 06:01] LABS: CALCIUM 7.6 MG/DL (8.5-10.1)
[2021-04-13 06:06] LABS: CREATININE SERUM 0.82 MG/DL (0.60-1.30)
[2021-04-13 07:14] LABS: ABG OXYGEN SATURATION 98 % (94-100); ABG PCO2 32 MMHG (35-45); ABG PH 7.44 (7.37-7.43); ABG PO2 87 MMHG (79-93); ABG TCO2 22.5 MMOL/L (21.0-31.0)
[2021-04-13 07:15] LABS: ALLENS TEST YES-POS; INSPIRED O2 100%; PATIENT TEMP 37.2; VENTILATOR NO
--- NOTE | 2021-04-13 07:42 | Diagnostic Imaging Report ---
EXAMINATION: Chest radiograph, portable AP view. DATE: 04/13/2021 4:48 AM INDICATION: 75-year-old male, shortness of breath, pneumonia. COMPARISON: April 10, 2021. FINDINGS: Heart size and mediastinal contours are unchanged. There is no identified pneumothorax. There is multifocal bilateral lung consolidation which is increased since the comparison study. There is tenting of the left hemidiaphragm likely relating to atelectasis. IMPRESSION: 1. Extensive multifocal bilateral lung consolidation with interval increase in degree of consolidation since comparison exam. Dictated by: Dictated on workstation # [id number]
[2021-04-13] MEDS: APIXABAN 5 MG (ELIQUIS) TABLET PO SCH (08:49)
--- NOTE | 2021-04-13 10:53 | Pulmonary Consultation ---
History of Present Illness History of Present Illness Date Seen by Provider: Apr 13, 2021 Time Seen by Provider: 10:15 Date of Admission Patient acknowledged, consented, and participated in this virtual visit which was conducted using real time audio/video. Thank you for asking us to see this 75 yo male patient for respiratory insufficiency and distress due to Covid pna. Covid dx approx 3 weeks ago and for which he took Ivermectin. Received 1 vaccine dose.. HPC: Recent events: went on BiPAP 22/05 85% PMH: HL, afib SH: smoking history previously FH: Non-contributory ROS: limited by patient's clinical condition, but as in HPI. PE: VSS O2 sat % on BiPAP 85%. HEENT: No obvious masses, adenopathy or JVD. Chest: clear to auscultation. CV: RRR S1 S2 No murmur or added sounds. Abd: Non-tender. Bowel sounds . : Unremarkable. Trotter N. PERSONAL FITNESS MANAGER/psychiatric: Alert and oriented, grossly intact. No obvious focal findings. Extremities: No edema. Capillary refill < 3 seconds. Skin: unremarkable. Results: Elevated WCC 18.1, D-Dimer > 20. Decreased alb 2.5. CXR w B worsening infilts. ABG 7.44/32/87 0n 100%. A/P: Respiratory insufficiency/distress: Cont Albuterol, Rocephin, AZT, Dex. Available chart/ vitals / labs /images reviewed. Video assessment done using teleICU camera, rest of exam as per RN. Respiratory: Continue present management with Alb., Rocephin, AZT, Dex. Monitor for increasing oxygenation needs and/or need for ICU transfer. Would consider moving patient if bed becomes available. Critical Care: critically ill patient. Cont Eliquis. Discussed with ANGEL Levin and DR. Hardin. Asked RN to reach out to eICU if any questions or concerns later. Time spent with patient/coordination of care with other health professionals (mins): 37 Allergies and Home Medications Allergies Coded Allergies: No Known Drug Allergies (Unverified , 03/11/11) Home Medications Ascorbic Acid 250 Mg Tab, 500 MG PO DAILY, (Reported) Aspirin 81 Mg Tabec, 81 MG PO DAILY, (Reported) Atorvastatin Calcium 10 Mg Tablet, 1 EACH PO HS, (Reported) Cephalexin 500 Mg Capsule, 500 MG PO TID Prescribed by: LYNN ANGULO on 10/25/202020 Cholecalciferol 1,000 Unit Tablet, 1,000 UNIT PO DAILY, (Reported) Multivitamins 1 Tab Tablet, 1 TAB PO DAILY, (Reported) [place] 3 Polyunsat Fatty Acids 1,000 Mg Cap, 1,000 MG PO BID, (Reported) Past Medical/Social/Family Hx Patient Social History Tobacco Use?: No Smoking Status: Former Smoker Substance use?: No Alcohol Use?: Yes Alcohol type: Beer Additional alcohol type: A BEER A DAY Alcohol Frequency: Daily Pt stated abuse/neglect: No Immunizations Up To Date Influenza Vaccine Up-to-Date: No; Not Current First/Initial COVID19 Vaccinat: 4 WEEKS AGO Current Status Advance Directives: No Communicates: Verbally Primary Language: Lithuanian Preferred Spoken Language: Lithuanian Is interpretation needed?: No Sensory deficits: Vision impairment Review of Systems Constitutional: see HPI Sepsis Event Evaluation Height, Weight, BMI Height: '" Weight: lbs. oz. kg; 21.43 BMI Method: Exam Exam Patient acknowledged, consented, and participated in this virtual visit which was conducted using real time audio/video Vital Signs Date Time Temp Pulse Resp B/P (MAP) Pulse Ox O2 Delivery O2 Flow Rate FiO2 04/13/21 08:46 94 NIV Bilevel 35.00 80 04/13/21 08:00 36.7 83 32 124/96 (105) 96 04/13/21 07:08 92 34 94 100.00 04/13/21 03:24 36.9 85 36 117/88 (98) 92 NIV Bilevel 90.00 04/13/21 01:55 38.1 91 32 NIV Bilevel 90.00 04/13/21 01:50 93 38 93 90.00 04/13/21 00:53 38.6 04/13/21 00:39 101 48 92 NIV Bilevel 100.00 04/13/21 00:21 38.6 112 44 88 NIV Bilevel 100.00 04/13/21 00:10 111 46 87 100.00 04/12/21 23:52 37.4 104 30 94/81 (85) 80 Vapotherm 40.00 100.00 04/12/21 21:04 92 Vapotherm 35.00 85 04/12/21 20:05 92 Vapotherm 35.00 85 04/12/21 19:40 37.0 99 26 122/76 (91) 92 Vapotherm 35.00 85.00 04/12/21 18:20 92 Vapotherm 35.00 85 04/12/21 16:30 92 Vapotherm 35.00 85 04/12/21 16:00 36.0 82 16 115/98 (104) 90 Vapotherm 04/12/21 11:46 36.5 85 24 103/68 (80) 95 Vapotherm 04/12/21 10:40 92 Vapotherm 35.00 85 I & O 04/13/21 07:00 Intake Total 3650 ml Output Total 925 ml Balance 2725 ml Height & Weight Height: '" Weight: lbs. oz. kg; 21.43 BMI Method: General Appearance: No Apparent Distress, WD/WN, Mild Distress, Moderate Distress, Other (Sleeping prone) HEENT: PERRL/EOMI, Pharynx Normal Respiratory: Decreased Breath Sounds Cardiovascular: Regular Rate, Rhythm Capillary Refill: Less Than 3 Seconds Peripheral Pulses: 1+ Dorsalis Pedis (R), 1+ Left Dors-Pedis (L) (see free text) Gastrointestinal: normal bowel sounds, non tender, soft Extremity: Normal Inspection, Non Tender, No Pedal Edema Neurologic/Psychiatric: Alert, Oriented x3, No Motor/Sensory Deficits Skin: Normal Color, Warm/Dry Results Lab Laboratory Tests 04/13/21 05:30 Assessment/Plan Assessment/Plan See free text Critical Care: Critically Ill Patient Advance Care Discussion: developed treatment plan Time spent on discussion(mins): 5 CARL CABRALES MD Apr 13, 2021 10:53
[2021-04-13] MEDS ORDERED: ATOR10TA66 PO (13:14)
--- NOTE | 2021-04-13 15:24 | Tele-ICU Progress Note ---
Progress Note transferred to ICU AHRF / ARDS due to severe COVID19 -BiPAP 16/10 90% rr 36 tv 700 -prone position if able -conservative fluid strategy- stop IVF -ativan x1 given for anxiety ( abg reviewed ) discussed with RN FUll code , high risk for intubation Focused Exam Height, Weight, BMI Height: '" Weight: lbs. oz. kg; 21.43 BMI Method: NNAMDI KRUSE MD Apr 13, 2021 15:24
[2021-04-13] MEDS ORDERED: LORazepam INJ 2 MG/ML (ATIVAN) VIAL IVP PRN (15:30)
--- NOTE | 2021-04-13 15:33 | Progress Note - Cardiology ---
Cardiology SOAP Progress Note Subjective: Worsening of shortness of breath today Gen malaise and weakness present No focal weakness No cp or palp or syncope or swelling Objective: I&O/Vital Signs 04/13/21 04/13/21 04/13/21 04/13/21 07:08 08:00 08:46 10:27 Temp 36.7 Pulse 92 83 82 Resp 34 32 31 B/P (MAP) 124/96 (105) Pulse Ox 94 96 94 93 O2 Delivery NIV Bilevel O2 Flow Rate 100.00 35.00 85.00 FiO2 80 04/13/21 04/13/21 04/13/21 04/13/21 11:14 11:57 12:00 12:00 Temp 36.3 Pulse Ox 92 O2 Delivery NIV Bilevel NIV Bilevel NIV Bilevel O2 Flow Rate 85.00 90.00 FiO2 100 04/13/21 04/13/21 04/13/21 04/13/21 13:00 13:38 15:05 15:17 Pulse 92 79 Resp 34 Pulse Ox 92 O2 Delivery NIV Bilevel NIV Bilevel O2 Flow Rate 85.00 100.00 100.00 04/13/21 00:00 Intake Total 1600 ml Output Total 750 ml Balance 850 ml Constitutional: AAO x 3, well-developed, well-nourished Respiratory: other (fair to good, bilateral air entry; scattered rhonchi; diminished air entry at lung bases) Cardiovascular: irregularly irregular, S1 and S2, systolic murmur (soft GUTIERREZ at card basee) Gastrointestional: No tender; soft; No guarding, No rebound; audible bowel sounds Extremities: No clubbing, No cyanosis, No significant edema Neurologic/Psychiatric: oriented x 3, grossly intact (moves all limbs equally) Skin: No rash on exposed areas, No ulcerations on exposed areas Results/Procedures: Labs Laboratory Tests 04/13/21 05:30: White Blood Count 18.7H, Red Blood Count 4.31, Hemoglobin 13.3, Hematocrit 41, Mean Corpuscular Volume 94, Mean Corpuscular Hemoglobin 31, Mean Corpuscular He moglobin Concent 33, Red Cell Distribution Width 13.8, Platelet Count 279, Mean Platelet Volume 9.8, Immature Granulocyte % (Auto) 1, Neutrophils (%) (Auto) 93H , Lymphocytes (%) (Auto) 3L, Monocytes (%) (Auto) 3, Eosinophils (%) (Auto) 0, Basophils (%) (Auto) 0, Neutrophils # (Auto) 17.4H, Lymphocytes # (Auto) 0.5L, Monocytes # (Auto) 0.6, Eosinophils # (Auto) 0.0, Basophils # (Auto) 0.0, Immature Granulocyte # (Auto) 0.2H, Sodium Level 143, Potassium Level 4.1, Chloride Level 114H, Carbon Dioxide Level 21, Anion Gap 8, Blood Urea Nitrogen 18, Creatinine 0.82, Estimat Glomerular Filtration Rate 92, BUN/Creatinine Ratio 22, Glucose Level 86, Calcium Level 7.6L, Corrected Calcium 8.8, Total Bilirubin 1.0, Aspartate Amino Transf (AST/SGOT) 75H, Alanine Aminotransferase (ALT/SGPT) 92H, Alkaline Phosphatase 151H, Total Protein 5.0L, Albumin 2.5L 04/13/21 06:50: Blood Gas Puncture Site RT RAD, Blood Gas Patient Temperature 37.2, Arterial Blood pH 7.44H, Arterial Blood Partial Pressure CO2 32L, Arterial Blood Partial Pressure O2 87, Arterial Blood HCO3 22L, Arterial Blood Total CO2 22.5, Arterial Blood Oxygen Saturation 98, Arterial Blood Base Excess -2.0, Aldo Test YES-POS, Blood Gas Ventilator Setting NO, Blood Gas Inspired Oxygen 100% 04/13/21 11:39: Glucometer 92 Laboratory Tests 04/13/21 05:30 A/P: Assessment: COVID-19 pneumonia progressing to resp failure A Fib of unknown duration (seen on admission on 04/11/21), ventricular rate is well-controlled Plan: * Hospitalist and ICU services are managing COVID-19 and pneumonia and worsening resp filure * Ventricular rate from A Fib continues to remain controlled * Continue anticoag for stroke prophylaxis * Monitor labs RONNIE RAMIREZ MD [facility] CCDS Apr 13, 2021 15:33
[2021-04-13] MEDS: cefTRIAXone 1,000 MG/SWFI 10 ML IV PUSH IV SCH ×2 (15:40)
--- NOTE | 2021-04-13 17:05 | Progress Note - Hospitalist ---
STEPHANIE MOLINA 04/13/21 1705: Subjective HPI/CC On Admission Saud Boston is a 75 year old male with PMH HLD who presented with shortness of breath. He was reportedly diagnosed with COVID three weeks ago. He had been doing ok until a few days ago when he started getting short of breath. He has had fever and cough. He denies chest pain. He denies nausea and vomiting. He denies diarrhea. He would be ok with being on the ventilator if needed. When asked about code status, he says, "Just try for one round and then let me go. Subjective/Events-last exam Overnight pt was trying to use the restroom and tripped on his cords, pulling some out. Shortly after, pt became anxious/stressed and began to desat to 60%. His heart rate, work of breathing and temperature all increased. Pt then required NIV. This morning the NIV settings were the following: Flow rate 35 and FIO2 80. Pt was anxious and distressed on exam. RR was 30 during this visit. Reports that fever, chills, and work of breathing have improved. However, at the time of writing this note, patient became intubated Review of Systems General: No Chills, No Night Sweats, No Fatigue, No Malaise HEENT: No Head Aches Pulmonary: Dyspnea, Cough Cardiovascular: No: Chest Pain, Palpitations Gastrointestinal: No: Nausea, Vomiting, Abdominal Pain, Diarrhea, Constipation Genitourinary: No Dysuria, No Frequency Objective Exam Vital Signs Vital Signs Date Time Temp Pulse Resp B/P (MAP) Pulse Ox O2 Delivery O2 Flow Rate FiO2 04/13/21 18:08 126 26 164/94 (117) 94 Mechanical Ventilator 100.00 04/13/21 17:53 100 04/13/21 15:45 37.0 Capillary Refill : Less Than 3 Seconds General Appearance: Anxious, Moderate Distress Respiratory: Chest Non Tender, Respiratory Distress Cardiovascular: No Edema, No Murmur, Irregularly Irregular Gastrointestinal: Normal Bowel Sounds Extremity: Normal Capillary Refill Neurologic/Psychiatric: Alert, Oriented x3 Reflexes: 1+ Bicep (R) Results/Procedures Lab Laboratory Tests 04/13/21 05:30 Patient resulted labs reviewed. Imaging: Reviewed Imaging Report Assessment/Plan Assessment and Plan Assess & Plan/Chief Complaint Saud Boston is a 75 year old male who was admitted 04/10 for acute respiratory failure three weeks after diagnosis of COVID. In addition, patient is currently being treated for afib and HAYDE. Acute respiratory failure COVID 19 -04/10: Pt admitted - originally requiring 6-8L NC. -Chest xray consistent with pna. Elevated D-dimer -Later transitioned to vapotherm, then NIV -04/13: Pt intubated Plan: -Continue to monitor ABGs and vent settings -Continue dexamethasone, eliquis -Continue Ceftriaxone and azithromycin -Monitor labs and electrolytes HAYDE -Managed with IV fluids Afib -Rates well controlled -Continue Eliquis -Continue to monitor Critical Care: Ventilator Management MAGGIE SHIPMAN DO 04/14/21 0546: Subjective HPI/CC On Admission Date Seen by Provider: Apr 13, 2021 Time Seen by Provider: 10:30 Subjective/Events-last exam Pt transferring to ICU Spoke to pulmonology who recommended this move He is currently on BiPAP Pt is oriented and has a good sense of humor CXR was reviewed AFIB is rate controlled Patient required intubation at 1700 Objective Exam General Appearance: Anxious, Chronically ill, Mild Distress Respiratory: No Accessory Muscle Use, No Respiratory Distress, Decreased Breath Sounds Cardiovascular: Regular Rate, Rhythm Assessment/Plan Assessment and Plan Assess & Plan/Chief Complaint Intubation required Prognosis guarded Supervisory-Addendum Brief Verification & Attestation Participated in pt care: history, MDM, physical Personally performed: exam, history, MDM, supervision of care Care discussed with: Medical Student Procedures: n/a Results interpretation: Verified all documentation Verification and Attestation of Medical Student E/M Service A medical student performed and documented this service in my presence. I reviewed and verified all information documented by the medical student and made modifications to such information, when appropriate. I personally performed the physical exam and medical decision making. Maggie Shipman Apr 14, 2021,05:46 STEPHANIE MOLINA Apr 13, 2021 17:05 MAGGIE SHIPMAN DO Apr 14, 2021 05:46
--- NOTE | 2021-04-13 17:10 | Tele-ICU Progress Note ---
Subjective Date Seen by a Provider: Apr 13, 2021 Time Seen by a Provider: 17:04 Sepsis Event Evaluation Height, Weight, BMI Height: '" Weight: lbs. oz. kg; 21.43 BMI Method: Exam Exam Patient acknowledged, consented, and participated in this virtual visit which was conducted using real time audio/video Vital Signs Date Time Temp Pulse Resp B/P (MAP) Pulse Ox O2 Delivery O2 Flow Rate FiO2 04/13/21 15:45 37.0 04/13/21 15:17 NIV Bilevel 100.00 04/13/21 15:05 79 34 92 100.00 04/13/21 15:00 77 46 119/95 (103) 93 NIV Bilevel 85.00 04/13/21 14:00 82 41 118/90 (99) NIV Bilevel 85.00 04/13/21 13:38 NIV Bilevel 85.00 04/13/21 13:00 89 26 115/77 (90) 91 NIV Bilevel 90.00 04/13/21 13:00 92 04/13/21 12:00 36.3 04/13/21 12:00 78 39 127/82 (97) 91 NIV Bilevel 90.00 04/13/21 12:00 92 NIV Bilevel 100 04/13/21 11:57 NIV Bilevel 90.00 04/13/21 11:45 140/94 (109) 04/13/21 11:14 NIV Bilevel 85.00 04/13/21 10:27 82 31 93 85.00 04/13/21 08:46 94 NIV Bilevel 35.00 80 04/13/21 08:00 36.7 83 32 124/96 (105) 96 04/13/21 07:08 92 34 94 100.00 04/13/21 03:24 36.9 85 36 117/88 (98) 92 NIV Bilevel 90.00 04/13/21 01:55 38.1 91 32 NIV Bilevel 90.00 04/13/21 01:50 93 38 93 90.00 04/13/21 00:53 38.6 04/13/21 00:39 101 48 92 NIV Bilevel 100.00 04/13/21 00:21 38.6 112 44 88 NIV Bilevel 100.00 04/13/21 00:10 111 46 87 100.00 04/12/21 23:52 37.4 104 30 94/81 (85) 80 Vapotherm 40.00 100.00 04/12/21 21:04 92 Vapotherm 35.00 85 04/12/21 20:05 92 Vapotherm 35.00 85 04/12/21 19:40 37.0 99 26 122/76 (91) 92 Vapotherm 35.00 85.00 04/12/21 18:20 92 Vapotherm 35.00 85 I & O 04/13/21 07:00 Intake Total 3650 ml Output Total 925 ml Balance 2725 ml Height & Weight Height: '" Weight: lbs. oz. kg; 21.43 BMI Method: General Appearance: No Apparent Distress, WD/WN, Mild Distress, Moderate Distress, Other (Sleeping prone) HEENT: PERRL/EOMI, Pharynx Normal Respiratory: Decreased Breath Sounds Cardiovascular: Regular Rate, Rhythm Capillary Refill: Less Than 3 Seconds Peripheral Pulses: 1+ Dorsalis Pedis (R), 1+ Left Dors-Pedis (L) (see free text) Gastrointestinal: normal bowel sounds, non tender, soft Extremity: Normal Inspection, Non Tender, No Pedal Edema Neurologic/Psychiatric: Alert, Oriented x3, No Motor/Sensory Deficits Skin: Normal Color, Warm/Dry Results Lab Laboratory Tests 04/13/21 05:30 Assessment/Plan Assessment/Plan (Tele-ICU Physician , Progress Note ) Transferred to ICU earlier today to ICU , BiPAP 16/10 90% rr 36 tv 700 - over next few hours RR increased to 48, not improved with ativan ( and demies anxiety ) with MV > 40 L and on 100% fio2 needs to be intubated RN discussed with patient - agreed Intubated with out complication orders for cxr , abg , sedation placed in chart - will follow Available chart/ vitals / labs / Images reviewed Video assessment done using teleICU camera, rest of exam as per RN Discussed with RN , EXAM PER RN Events overnight : Afebrile I/O = Drips: Pressors: , hemodynamically stable Consultants: arjun Hospital course: 04/11 - Vapotherm at 35 L and 85% 04/13 = to ICU , BiPAP 16/10 100% -> failed -> INTUBATED A/P AHRF / ARDS due to severe COVID19 -intubated 04/13 - AC 26 600 ( 7 ml/kg IBW) peep 16 100% -prone position if able UTCG-Lxksfmmimhg-5/COVID-19 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 When asked about code status, he says, "Just try for one round and then let me go." Lines : periph (Central Line Necessity Reviewed) Trotter: 04/13 OG: + Nutrition: TF to start Analgesia: Anxiety/ delirium VTE Prophylaxis: lovenox full dose Stress Ulcer Prophylaxis: PO Glycemic Control: Plans in collaboration with bedside consultants and IM MDs. Discussed with RN to reach out if any questions or concerns A total of 45 minutes of critical care time was devoted to this patient today, required to treat and/or prevent further deterioration of critical care condition ( as above) . NNAMDI KRUSE MD Apr 13, 2021 17:10
[2021-04-13] MEDS ORDERED: PROPOFOL DRIP (ICU) 100 ML IV ONE (17:14)
[2021-04-13] MEDS ORDERED: NS IV 1000 ML 1,000 ML ONE (17:19)
[2021-04-13] MEDS ORDERED: proPOfol 200 MG/20 ML (DIPRIVAN) VIAL IV ONE (17:22)
[2021-04-13] MEDS ORDERED: PHENYLEPHRINE INJ 10 MG/ML (FOR DRIP KITS ONLY) ONE (17:38)
[2021-04-13] MEDS ORDERED: NORMAL SALINE 250 ML ONE (17:39)
--- NOTE | 2021-04-13 17:54 | Anesthesia-Procedure Note ---
Procedures/Interventions Procedure Start/Stop/Diagnosis Date of Procedure: Apr 13, 2021 Start Time: 17:20 Stop Time: 17:45 Intubation RSI: Yes 100% pre-Ox, [id number]: Yes Intubation Method: orotracheal Videoscope used: Yes Grade View: 1 Medications: Propofol (200), Rocuronium (50), Succinylcholine (100) Mask Ventilation: positive Positive End Tide CO2: Yes Breath Sounds after Intubation: bilateral-equal ETT Securred @ (cm): 23 Intubated with ease: Yes Intubation Complications: no complications Arterial Line Arterial Line Catheter: 20G Type: Radial Location: Right Procedure: prepped, draped in sterile fashion, good wave-form was obtained, patient tolerated procedure well, no immediate complications, post procedure area cleaned, post procedure dressing applied EL DING CRNA Apr 13, 2021 17:54
--- NOTE | 2021-04-13 17:59 | Diagnostic Imaging Report ---
INDICATION: ET tube placement. TIME OF EXAM: 5:41 p.m. COMPARISON: Correlation is made with prior chest earlier same day. FINDINGS: ET tube has tip in good position above the rose marie. NG tube passes below the diaphragm. Extensive bilateral pulmonary infiltrates persist. There is no effusion or pneumothorax. Heart size is stable. IMPRESSION: Satisfactory endotracheal tube placement. Dictated by: Dictated on workstation # [id number]
[2021-04-13] MEDS: AZITHROMYCIN 500 MG/NS 250 ML IVPB IV SCH ×2 (18:06)
[2021-04-13] MEDS: PROPOFOL DRIP (ICU) 100 ML IV SCH ×2 (18:07→21:09)
[2021-04-13] MEDS ORDERED: SUCCINYLCHOLINE INJ 100 MG/5 ML SYR/VIAL INJ ONE (19:07)
[2021-04-13] MEDS ORDERED: ROCURONIUM 10 MG/ML 5 ML SYRINGE IV ONE (19:07)
--- NOTE | 2021-04-13 19:43 | Consultation - Surgery ---
History of Present Illness History of Present Illness Patient Consulted On(yair/time) 04/13/21 19:25 Date Seen by Provider: Apr 13, 2021 Time Seen by Provider: 18:23 History of Present Illness Counts requested by Dr. Kirkpatrick for central line placement. Patient is 75-year-old male with COVID-19. He went to respiratory failure and needed to be intubated. Patient unable to provide any information. Patient intubated and sedated at this time. He is hypotensive and requiring pressors. Patient needing central line placed for administration of multiple medications and pressors. Unable to provide any information. Chart reviewed. Allergies and Home Medications Allergies Coded Allergies: No Known Drug Allergies (Unverified , 03/11/11) Patient Home Medication List Home Medication List Reviewed: Yes Atorvastatin Calcium (Atorvastatin Calcium) 10 Mg Tablet, 10 MG PO DAILY, (Reported) Entered as Reported by: MAYA VIVAS on 04/13/21 1314 Last Action: Reviewed Discontinued Medications Ascorbic Acid (Vitamin C) 250 Mg Tab, 500 MG PO DAILY, (Reported) Discontinued Reason: No Longer Taking Entered as Reported by: ABEBE RIVAS on 03/11/11816 Last Action: Discontinued Aspirin (Aspirin Ec 81 Mg) 81 Mg Tabec, 81 MG PO DAILY, (Reported) Discontinued Reason: No Longer Taking Entered as Reported by: ABEBE RIVAS on 03/11/11816 Last Action: Discontinued Atorvastatin Calcium (Lipitor 10 Mg) 10 Mg Tablet, 1 EACH PO HS, (Reported) Discontinued Reason: No Longer Taking Entered as Reported by: ABEBE RIVAS on 03/11/11816 Last Action: Discontinued Cephalexin (Cephalexin) 500 Mg Capsule, 500 MG PO TID Discontinued Reason: No Longer Taking Prescribed by: LYNN ANGULO on 10/25/202020 Last Action: Discontinued Cholecalciferol (Vitamin D) 1,000 Unit Tablet, 1,000 UNIT PO DAILY, (Reported) Discontinued Reason: No Longer Taking Entered as Reported by: ABEBE RIVAS on 03/11/11816 Last Action: Discontinued Multivitamins (Multiple Vitamin) 1 Tab Tablet, 1 TAB PO DAILY, (Reported) Discontinued Reason: No Longer Taking Entered as Reported by: ABEBE RIVAS on 03/11/11816 Last Action: Discontinued Wright 3 Polyunsat Fatty Acids (Fish Oil) 1,000 Mg Cap, 1,000 MG PO BID, (Repo rted) Discontinued Reason: No Longer Taking Entered as Reported by: ABEBE RIVAS on 03/11/11 08 Last Action: Discontinued Past Iwvkrog-Hhrzmt-Wkhuvr Hx Patient Social History Smoking Status: Former Smoker Recent Hopitalizations: No Alcohol Use?: Yes Have you traveled recently?: No Seasonal Allergies Seasonal Allergies: No Surgeries History of Surgeries: No Respiratory History of Respiratory Disorde: No Cardiovascular History of Cardiac Disorders: No Cardiac Disorders: High Cholesterol Neurological History of Neurological Disord: No Reproductive System Hx Reproductive Disorders: No Sexually Transmitted Disease: No Genitourinary History of Genitourinary Disor: No Gastrointestinal History of Gastrointestinal Di: No Musculoskeletal History of Musculoskeletal Dis: Yes Musculoskeletal Disorders: Arthritis Endocrine History of Endocrine Disorders: No Cancer History of Cancer: No Psychosocial History of Psychiatric Problem: No Integumentary History of Skin or Integumenta: No Blood Transfusions History of Blood Disorders: No Reviewed Nursing Assessment Reviewed/Agree w Nursing PMH: Yes Family Medical History Significant Family History: No Pertinent Family Hx Review of Systems-General ROS-Unable to Obtain: Patient unable to provide intubated Physical Exam-General Problems Physical Exam Vital Signs Vital Signs - First Documented 04/10/21 04/10/21 14:34 23:11 Temp 37.0 Pulse 106 Resp 15 B/P (MAP) 107/68 (81) Pulse Ox 89 O2 Delivery Nasal Cannula O2 Flow Rate 6.00 FiO2 75 Capillary Refill : Less Than 3 Seconds General Appearance: WD/WN, other (Intubated and sedated) HEENT: PERRL/EOMI, normal ENT inspection Neck: supple, normal inspection Respiratory: other (Equal chest rise) Cardiovascular: no JVD, irregularly irregular Gastrointestinal: soft; No distended Rectal: deferred Extremities: normal inspection, no pedal edema Neurologic/Psychiatric: No alert, No oriented x 3; other (Intubated) Skin: normal color, warm/dry Lymphatic: no adenopathy Data Review Labs Laboratory Tests 04/13/21 05:30: White Blood Count 18.7H, Red Blood Count 4.31, Hemoglobin 13.3, Hematocrit 41, Mean Corpuscular Volume 94, Mean Corpuscular Hemoglobin 31, Mean Corpuscular He moglobin Concent 33, Red Cell Distribution Width 13.8, Platelet Count 279, Mean Platelet Volume 9.8, Immature Granulocyte % (Auto) 1, Neutrophils (%) (Auto) 93H , Lymphocytes (%) (Auto) 3L, Monocytes (%) (Auto) 3, Eosinophils (%) (Auto) 0, Basophils (%) (Auto) 0, Neutrophils # (Auto) 17.4H, Lymphocytes # (Auto) 0.5L, Monocytes # (Auto) 0.6, Eosinophils # (Auto) 0.0, Basophils # (Auto) 0.0, Immature Granulocyte # (Auto) 0.2H, Sodium Level 143, Potassium Level 4.1, Chloride Level 114H, Carbon Dioxide Level 21, Anion Gap 8, Blood Urea Nitrogen 18, Creatinine 0.82, Estimat Glomerular Filtration Rate 92, BUN/Creatinine Ratio 22, Glucose Level 86, Calcium Level 7.6L, Corrected Calcium 8.8, Total Bilirubin 1.0, Aspartate Amino Transf (AST/SGOT) 75H, Alanine Aminotransferase (ALT/SGPT) 92H, Alkaline Phosphatase 151H, Total Protein 5.0L, Albumin 2.5L 04/13/21 06:50: Blood Gas Puncture Site RT RAD, Blood Gas Patient Temperature 37.2, Arterial Blood pH 7.44H, Arterial Blood Partial Pressure CO2 32L, Arterial Blood Partial Pressure O2 87, Arterial Blood HCO3 22L, Arterial Blood Total CO2 22.5, Arterial Blood Oxygen Saturation 98, Arterial Blood Base Excess -2.0, Aldo Test YES-POS, Blood Gas Ventilator Setting NO, Blood Gas Inspired Oxygen 100% 04/13/21 11:39: Glucometer 92 04/13/21 17:15: Triglycerides Level 89 Assessment/Plan Assessment/Plan Assessment/Plan Acute respiratory failure COVID-19 Atrial fibrillation Poor venous access Hypotension Patient is a 75-year-old male with acute respiratory failure COVID-19 is also hypotensive needing pressors. Patient needs central line placed. He is on anticoagulation with so we will do a left femoral vein. Would recommend getting PICC line and removing central line within the next couple days. Will sign off please call if needed. Procedure: left femoral vein ultrasound-guided central line. Patient is prepped draped in sterile fashion timeout was performed using ultrasound the left femoral vein was isolated this was then accessed and dark nonpulsatile blood was withdrawn. The guidewire was inserted and the needle was removed. 11 blade scalpel was used to make a small skin incision at the insertion point. The dilator was then advanced over the wire and removed. The triple-lumen catheter was advanced over the guidewire and the wire was removed. The triple-lumen catheter was then secured with 3-0 silk suture. All ports were accessed and flushed without difficulty. The areas washed and dried and sterile bandage was applied. Patient taught procedure well without any complications. CARLOS BATES DO Apr 13, 2021 19:43
[2021-04-13] MEDS: PHENYLEPHRINE INJECTION 10 MG in NS (IVPB) 250 ML IV SCH ×2 (19:55→22:41)
[2021-04-13] MEDS: ENOXAPARIN 80 MG/0.8 ML (LOVENOX) SYR SC SCH (20:03)
[2021-04-13 21:19] LABS: ABG BASE EXCESS -3.9 MMOL/L (-2.5-2.5); ABG OXYGEN SATURATION 94 % (94-100); ABG PCO2 48 MMHG (35-45); ABG PO2 74 MMHG (79-93); ABG TCO2 23.3 MMOL/L (21.0-31.0)
[2021-04-13 21:21] LABS: ABG PH 7.28 (7.37-7.43)
[2021-04-13 21:22] LABS: ALLENS TEST YES-POS; INSPIRED O2 100%; PATIENT TEMP 36.8; VENTILATOR YES
[2021-04-13] MEDS: RT--FLUTICASONE/SALMETEROL 113-14 (AIRDUO RespiCLICK) IH SCH (22:07)
[2021-04-14] VITALS (31 sets, daily range): BP systolic 92–148; BP diastolic 47–80
[2021-04-14] MEDS ORDERED: PHENYLEPHRINE INJ 10 MG/ML (FOR DRIP KITS ONLY) ONE ×2 (00:36→03:41)
[2021-04-14] MEDS: PROPOFOL DRIP (ICU) 100 ML IV SCH ×6 (00:42→20:22)
[2021-04-14] MEDS: PHENYLEPHRINE INJECTION 10 MG in NS (IVPB) 250 ML IV SCH ×5 (00:42→06:35)
[2021-04-14] MEDS: VASOPRESSIN INJECTION 20 UNIT in NS (IVPB) 100 ML IV SCH ×3 (01:17→20:22)
[2021-04-14 01:38] LABS: ABG BASE EXCESS -4.5 MMOL/L (-2.5-2.5); ABG OXYGEN SATURATION 98 % (94-100); ABG PCO2 39 MMHG (35-45); ABG PO2 105 MMHG (79-93); ABG TCO2 21.5 MMOL/L (21.0-31.0)
[2021-04-14 01:39] LABS: ABG PH 7.35 (7.37-7.43); ALLENS TEST YES-POS; INSPIRED O2 90%; PATIENT TEMP 36.8; VENTILATOR YES
[2021-04-14 01:42] LABS: BASOPHILS # (AUTO) 0.1 10^3/uL (0.0-0.1); BASOPHILS % (AUTO) 0 % (0-10); EOSINOPHILS % (AUTO) 0 % (0-10); HEMATOCRIT 46 % (40-54); HEMOGLOBIN 14.9 g/dL (13.3-17.7); LYMPHOCYTES # (AUTO) 0.5 10^3/uL (1.0-4.0); LYMPHOCYTES % (AUTO) 2 % (12-44); MEAN CORPUSCULAR HEMOGLOBIN 31 pg (25-34); MEAN CORPUSCULAR HGB CONC 32 g/dL (32-36); MEAN CORPUSCULAR VOLUME 96 fL (80-99); MEAN PLATELET VOLUME 9.7 fL (9.0-12.2); MONOCYTES % (AUTO) 3 % (0-12); NEUTROPHILS % (AUTO) 94 % (42-75); PLATELET COUNT 329 10^3/uL (130-400)
[2021-04-14 01:51] LABS: POTASSIUM 4.6 MMOL/L (3.6-5.0)
[2021-04-14 01:56] LABS: CREATININE SERUM 1.01 MG/DL (0.60-1.30)
[2021-04-14 01:57] LABS: WHITE BLOOD COUNT 32.9 10^3/uL (4.3-11.0)
[2021-04-14 01:58] LABS: MAGNESIUM 2.3 MG/DL (1.6-2.4)
[2021-04-14] MEDS: RT-ALBUTEROL HFA 8.5 GM INHALER IH SCH ×6 (02:13→22:22)
[2021-04-14 02:31] LABS: BAND NEUTROPHILS 3 %; LYMPHOCYTES % (MANUAL) 1 %; MONOCYTES % (MANUAL) 2 %; NEUTROPHILS % (MANUAL) 94 %
[2021-04-14 02:32] LABS: CRENATED RBC MARKED
[2021-04-14] MEDS ORDERED: NS (IVPB) 250 ML ONE ×3 (02:52→06:22)
[2021-04-14 05:18] LABS: ABG BASE EXCESS -6.1 MMOL/L (-2.5-2.5); ABG OXYGEN SATURATION 96 % (94-100); ABG PCO2 39 MMHG (35-45); ABG PO2 78 MMHG (79-93); ABG TCO2 20.5 MMOL/L (21.0-31.0)
[2021-04-14 05:19] LABS: ABG PH 7.31 (7.37-7.43); ALLENS TEST YES-POS; INSPIRED O2 80%; PATIENT TEMP 36.3; VENTILATOR YES
[2021-04-14] MEDS: RT--FLUTICASONE/SALMETEROL 113-14 (AIRDUO RespiCLICK) IH SCH (06:58)
--- NOTE | 2021-04-14 06:58 | Occ Therapy Progress Note ---
Therapy Progress Note Orders received. Pt is currently intubated. OT will continue to monitor pt status and initiate treatment when pt is medically stable and able to actively participate in skilled therapy. MICHI AMAYA Apr 14, 2021 06:58
--- NOTE | 2021-04-14 08:07 | Physical Therapy Progress Note ---
Therapy Progress Note Order for PT evaluation received. Patient is currently intubated and sedated. Will monitor and start patient when appropriate. FLASH ALLEN PT Apr 14, 2021 08:07
[2021-04-14] MEDS: ENOXAPARIN 80 MG/0.8 ML (LOVENOX) SYR SC SCH ×2 (08:23→20:02)
[2021-04-14] MEDS: PHENYLEPHRINE DOUBLE STRENGTH 20MG/ 250 ML IV SCH ×8 (08:28→19:56)
--- NOTE | 2021-04-14 08:44 | Diagnostic Imaging Report ---
INDICATION: Respiratory distress. Comparison made with prior examination from 04/13/2021 FINDINGS: The heart size is normal. There are diffuse bilateral groundglass infiltrates. There is no pleural effusion or pneumothorax. The mediastinum is unremarkable. ET and NG tubes are in satisfactory position. IMPRESSION: Diffuse bilateral pulmonary infiltrates suspect for atypical pneumonia possibly COVID. Some underlying central pulmonary venous congestion cannot be excluded. Report was faxed to Henrry/RN Infection Control by sara at 7:45AM. Dictated by: Dictated on workstation # [id number]
[2021-04-14] MEDS ORDERED: PANTOPRAZOLE 40 MG (PROTONIX) VIAL IV SCH (09:00)
--- NOTE | 2021-04-14 10:07 | Tele-ICU Progress Note ---
Subjective Date Seen by a Provider: Apr 14, 2021 Time Seen by a Provider: 10:06 Sepsis Event Evaluation Height, Weight, BMI Height: '" Weight: lbs. oz. kg; 21.43 BMI Method: Exam Exam Patient acknowledged, consented, and participated in this virtual visit which was conducted using real time audio/video Vital Signs Date Time Temp Pulse Resp B/P (MAP) Pulse Ox O2 Delivery O2 Flow Rate FiO2 04/14/21 09:00 86 23 102/59 (73) 91 Mechanical Ventilator 55.00 04/14/21 08:52 92 114/64 04/14/21 08:28 80 97/55 04/14/21 08:00 82 21 103/55 (71) 99 Mechanical Ventilator 55.00 04/14/21 07:53 36.7 04/14/21 07:44 100 Mechanical Ventilator 55 04/14/21 07:20 Mechanical Ventilator 55.00 04/14/21 07:00 100 35 103/60 (74) 100 Mechanical Ventilator 80.00 04/14/21 06:58 96 34 100 55 04/14/21 06:43 83 04/14/21 06:35 93 116/68 04/14/21 06:00 93 30 116/68 (84) 100 Mechanical Ventilator 80.00 04/14/21 05:01 36.3 80.00 04/14/21 05:00 85 32 119/69 (86) 100 Mechanical Ventilator 90.00 04/14/21 04:55 84 100/59 04/14/21 04:54 84 100/59 04/14/21 04:00 90 29 111/64 (80) 100 Mechanical Ventilator 90.00 04/14/21 03:42 90 Mechanical Ventilator 80 04/14/21 03:19 84 100/59 04/14/21 03:00 84 26 100/59 (73) 100 Mechanical Ventilator 90.00 04/14/21 02:13 80 34 100 80 04/14/21 02:00 87 38 92/57 (69) 92 Mechanical Ventilator 90.00 04/14/21 01:36 90 93/61 04/14/21 01:17 90 93/61 04/14/21 01:15 87 12 99/61 (74) 100 Mechanical Ventilator 90.00 04/14/21 01:00 87 10 96/56 (69) 100 Mechanical Ventilator 100.00 04/14/21 01:00 87 04/14/21 00:42 90 93/61 04/14/21 00:42 90 93/61 04/14/21 00:00 90 22 93/61 (72) 100 Mechanical Ventilator 100.00 04/14/21 00:00 90 Mechanical Ventilator 100 04/13/21 23:00 99 88/60 (69) 97 Mechanical Ventilator 100.00 04/13/21 22:41 101 97/62 04/13/21 22:08 101 35 100 90 04/13/21 22:00 93 29 105/60 (75) 100 Mechanical Ventilator 100.00 04/13/21 21:09 92 101/59 04/13/21 21:00 92 33 101/59 (73) 89 Mechanical Ventilator 100.00 04/13/21 20:00 90 Mechanical Ventilator 100 04/13/21 20:00 97 33 84/51 (62) 96 Mechanical Ventilator 100.00 04/13/21 19:55 126 76/52 04/13/21 19:41 37.3 04/13/21 19:38 94 04/13/21 19:00 118 04/13/21 19:00 118 22 82/54 (63) 87 Mechanical Ventilator 100.00 04/13/21 18:08 126 26 164/94 (117) 94 Mechanical Ventilator 100.00 04/13/21 18:07 117 221/100 04/13/21 17:53 111 26 93 100 04/13/21 17:40 121 165/90 04/13/21 17:00 96 48 126/83 (97) 87 NIV Bilevel 100.00 04/13/21 16:00 94 NIV Bilevel 100 04/13/21 16:00 87 54 138/95 (109) 90 NIV Bilevel 100.00 04/13/21 15:45 37.0 04/13/21 15:17 NIV Bilevel 100.00 04/13/21 15:05 79 34 92 100.00 04/13/21 15:00 77 46 119/95 (103) 93 NIV Bilevel 85.00 04/13/21 14:00 82 41 118/90 (99) NIV Bilevel 85.00 04/13/21 13:38 NIV Bilevel 85.00 04/13/21 13:00 89 26 115/77 (90) 91 NIV Bilevel 90.00 04/13/21 13:00 92 04/13/21 12:00 36.3 04/13/21 12:00 78 39 127/82 (97) 91 NIV Bilevel 90.00 04/13/21 12:00 92 NIV Bilevel 100 04/13/21 11:57 NIV Bilevel 90.00 04/13/21 11:45 140/94 (109) 04/13/21 11:14 NIV Bilevel 85.00 04/13/21 10:27 82 31 93 85.00 I & O 04/14/21 07:00 Intake Total 2156 ml Output Total 1425 ml Balance 731 ml Height & Weight Height: '" Weight: lbs. oz. kg; 21.43 BMI Method: General Appearance: Anxious, Chronically ill, Mild Distress HEENT: PERRL/EOMI, Pharynx Normal Respiratory: No Accessory Muscle Use, No Respiratory Distress, Decreased Breath Sounds Cardiovascular: Regular Rate, Rhythm Capillary Refill: Less Than 3 Seconds Peripheral Pulses: 1+ Dorsalis Pedis (R), 1+ Left Dors-Pedis (L) (see free text) Gastrointestinal: soft; No distended Extremity: Normal Capillary Refill Neurologic/Psychiatric: Alert, Oriented x3 Skin: Normal Color, Warm/Dry Results Lab Laboratory Tests 04/13/21 05:30 04/14/21 01:30 Assessment/Plan Assessment/Plan (Tele-ICU Physician , Progress Note ) Available chart/ vitals / labs / Images reviewed Video assessment done using teleICU camera, rest of exam as per RN Discussed with RN , EXAM PER RN Events overnight : started on pressors Afebrile I/O = pos 300 Drips: Pressors: vaso 0.3 lisa 100 hemodynamically stable Sedation gtt: ( RASS -2 ) propofol VENT SETTINGS and ABG reviewed Not candidate for SBT today Contraindications: Cardiovascular Stability / Sedation Score / FI02/PEEP / ABG / CXR Consultants: arjun Hospital course: 04/11 - Vapotherm at 35 L and 85% 04/13 = to ICU , BiPAP 16/10 100% -> failed -> INTUBATED , peep 16 100% 04/14 - lisa/vaso , WBC 32 , AC 28 550 +12 55% A/P AHRF / ARDS due to severe COVID19 -intubated 04/13 - AC 28 550 +12 55% -prone position if able Suspected pneumomediastinum on left on cxr 04/14 - decrease PEEP , repeat cxr Shock - probly sepsis - cont weaning pressors , fluid resuscitation for oliguria FJVM-[id number]-4/COVID-19 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 , 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 When asked about code status, he says, "Just try for one round and then let me go." Lines : Left femrol line 04/13 (Central Line Necessity Reviewed) Trotter: 04/13 OG: + Nutrition: TF to start Analgesia: Anxiety/ delirium VTE Prophylaxis: lovenox full dose Stress Ulcer Prophylaxis: PO Glycemic Control: Plans in collaboration with bedside consultants and IM MDs. Discussed with RN to reach out if any questions or concerns A total of 45 minutes of critical care time was devoted to this patient today, required to treat and/or prevent further deterioration of critical care condition ( as above) . NNAMDI KRUSE MD Apr 14, 2021 10:06
[2021-04-14] MEDS: ALBUMIN 25% 25 GM/100 ML 100 ML IV SCH ×2 (10:12→15:22)
[2021-04-14] MEDS: fentaNYL INJ 100 MCG/2 ML AMP IVP PRN (10:13)
[2021-04-14] MEDS ORDERED: NS (IVPB) 100 ML ONE (11:03)
--- NOTE | 2021-04-14 13:58 | Diagnostic Imaging Report ---
INDICATION: PICC line placement. TIME OF EXAM: 1:34 p.m. COMPARISON: Correlation is made with prior chest from earlier the same day. FINDINGS: Left upper extremity PICC line has tip overlying the SVC near the SVC right atrial junction. ET tube has tip above the rose marie. NG tube passes below the diaphragm. Bilateral pulmonary infiltrates persist. Subcutaneous gas throughout the soft tissues of the neck is again noted. No definite pneumothorax or pleural fluid is seen. IMPRESSION: 1. Satisfactory PICC line placement. 2. Extensive bilateral pulmonary infiltrates, stable since earlier today. 3. Subcutaneous emphysema, stable. Dictated by: Dictated on workstation # [id number]
--- NOTE | 2021-04-14 14:55 | Progress Note - Hospitalist ---
STEPHANIE MOLINA 04/14/21 1454: Subjective HPI/CC On Admission Date Seen by Provider: Apr 14, 2021 Time Seen by Provider: 10:30 Saud Boston is a 75 year old male with PMH HLD who presented with shortness of breath. He was reportedly diagnosed with COVID three weeks ago. He had been doing ok until a few days ago when he started getting short of breath. He has had fever and cough. He denies chest pain. He denies nausea and vomiting. He denies diarrhea. He would be ok with being on the ventilator if needed. When asked about code status, he says, "Just try for one round and then let me go. Subjective/Events-last exam Patient continues to be sedated and intubated. Current vent settings are the following: -RR34 -FIO2 50 (down from 80-100) -Tidal volume 859 (up from 448) -Minute vent 19.2 -PEEP 12 Objective Exam Vital Signs Vital Signs Date Time Temp Pulse Resp B/P (MAP) Pulse Ox O2 Delivery O2 Flow Rate FiO2 04/14/21 14:03 67 30 92 55 04/14/21 12:45 36.5 04/14/21 12:42 138/83 04/14/21 11:27 Mechanical Ventilator 04/14/21 11:00 55.00 Capillary Refill : Less Than 3 Seconds General Appearance: No Apparent Distress, Chronically ill Cardiovascular: No Murmur, Irregularly Irregular Results/Procedures Lab Laboratory Tests 04/14/21 01:30 Patient resulted labs reviewed. Imaging: Reviewed Imaging Report Assessment/Plan Assessment and Plan Assess & Plan/Chief Complaint Saud Boston is a 75 year old male who was admitted 04/10 for acute respiratory failure three weeks after diagnosis of COVID. In addition, patient is currently being treated for afib and HAYDE. Day 2 of intubation Acute respiratory failure COVID 19 -04/10: Pt admitted - originally requiring 6-8L NC. -Chest xray consistent with pna. Elevated D-dimer -04/13: Pt intubated Plan: -Continue to monitor ABGs and vent settings -Continue dexamethasone, eliquis -Continues to require phenylephrine and vasopressin -Continue Ceftriaxone and azithromycin -Monitor labs and electrolytes HAYDE -Managed with IV fluids Afib -Rates well controlled -Continue Eliquis -Continue to monitor Critical Care: Ventilator Management MAGGIE SHIPMAN DO 04/15/21 0518: Subjective Subjective/Events-last exam Pt critically ill ABG is 7.31/39/78 PEEP of 12, 50% FIO2 and respiratory rate is 34 on vent WBC 32.9 Objective Exam General Appearance: No Apparent Distress, WD/WN, Chronically ill, Other (Se dated and intubated) Respiratory: No Accessory Muscle Use, No Respiratory Distress, Decreased Breath Sounds Cardiovascular: Regular Rate, Rhythm Assessment/Plan Assessment and Plan Assess & Plan/Chief Complaint Maintain ventilator Prognosis guarded Supervisory-Addendum Brief Verification & Attestation Participated in pt care: history, MDM, physical Personally performed: exam, history, MDM, supervision of care Care discussed with: Medical Student Procedures: n/a Results interpretation: Verified all documentation Verification and Attestation of Medical Student E/M Service A medical student performed and documented this service in my presence. I reviewed and verified all information documented by the medical student and made modifications to such information, when appropriate. I personally performed the physical exam and medical decision making. Maggie Shipman, Apr 15, 2021,05:17 STEPHANIE MOLINA Apr 14, 2021 14:54 MAGGIE SHIPMAN DO Apr 15, 2021 05:18
[2021-04-14] MEDS: cefTRIAXone 1,000 MG/SWFI 10 ML IV PUSH IV SCH ×2 (15:23)
[2021-04-14] MEDS: LACTATED RINGERS 1,000 ML IV SCH (16:23)
[2021-04-14] MEDS: AZITHROMYCIN 500 MG/NS 250 ML IVPB IV SCH ×2 (16:24)
--- NOTE | 2021-04-14 17:39 | Progress Note - Cardiology ---
Cardiology SOAP Progress Note Subjective: Intubated, on mech vent, unable to communicate Objective: I&O/Vital Signs 04/14/21 04/14/21 04/14/21 04/14/21 06:00 06:35 06:43 06:58 Pulse 93 93 83 96 Resp 30 34 B/P (MAP) 116/68 (84) 116/68 Pulse Ox 100 100 O2 Delivery Mechanical Ventilator O2 Flow Rate 80.00 FiO2 55 04/14/21 04/14/21 04/14/21 04/14/21 07:00 07:20 07:44 07:53 Temp 36.7 Pulse 100 Resp 35 B/P (MAP) 103/60 (74) Pulse Ox 100 100 O2 Delivery Mechanical Ventilator Mechanical Ventilator Mechanical Ventilator O2 Flow Rate 80.00 55.00 FiO2 55 04/14/21 04/14/21 04/14/21 04/14/21 08:00 08:28 08:52 09:00 Pulse 82 80 92 86 Resp 21 23 B/P (MAP) 103/55 (71) 97/55 114/64 102/59 (73) Pulse Ox 99 91 O2 Delivery Mechanical Ventilator Mechanical Ventilator O2 Flow Rate 55.00 55.00 04/14/21 04/14/21 04/14/21 04/14/21 10:00 10:22 11:00 11:22 Pulse 81 84 78 79 Resp 29 28 30 B/P (MAP) 119/67 (84) 116/65 (82) 117/64 Pulse Ox 92 92 91 O2 Delivery Mechanical Ventilator Mechanical Ventilator O2 Flow Rate 55.00 55.00 FiO2 55 04/14/21 04/14/21 04/14/21 04/14/21 11:26 11:27 12:00 12:42 Pulse 84 77 72 Resp 23 B/P (MAP) 123/62 123/63 (83) 138/83 Pulse Ox 92 93 O2 Delivery Mechanical Ventilator Mechanical Ventilator O2 Flow Rate 55.00 FiO2 55 04/14/21 04/14/21 04/14/21 04/14/21 12:45 13:00 13:00 14:00 Temp 36.5 Pulse 70 85 71 Resp 30 28 B/P (MAP) 127/75 (92) 114/64 (81) Pulse Ox 92 92 O2 Delivery Mechanical Ventilator Mechanical Ventilator O2 Flow Rate 55.00 55.00 9/8/21 04/14/21 04/14/21 04/14/21 14:03 15:00 15:36 16:00 Pulse 67 63 65 66 Resp 30 27 29 B/P (MAP) 127/64 (85) 129/69 118/63 (81) Pulse Ox 92 92 91 O2 Delivery Mechanical Ventilator Mechanical Ventilator O2 Flow Rate 55.00 55.00 FiO2 55 04/14/21 04/14/21 04/14/21 16:20 16:21 16:34 Temp 36.6 Pulse 61 B/P (MAP) 119/66 Pulse Ox 91 O2 Delivery Mechanical Ventilator FiO2 55 04/14/21 00:00 Intake Total 701 ml Output Total 1225 ml Balance -524 ml Constitutional: other (Intubated, on mech vent, unable to communicate; I did no t physically examine the patient to reduce exposure to COVID-19) Gastrointestional: soft Neurologic/Psychiatric: oriented x 3 Results/Procedures: Labs Laboratory Tests 04/13/21 21:10: Blood Gas Puncture Site RIGHT RADIAL, Blood Gas Patient Temperature 36.8, Arterial Blood pH 7.28*L, Arterial Blood Partial Pressure CO2 48H, Arterial Blood Partial Pressure O2 74L, Arterial Blood HCO3 22L, Arterial Blood Total CO2 23.3, Arterial Blood Oxygen Saturation 94, Arterial Blood Base Excess -3.9L, Aldo Test YES-POS, Blood Gas Ventilator Setting YES, Blood Gas Inspired Oxygen 100% 04/13/21 23:38: Glucometer 93 04/14/21 01:25: Blood Gas Puncture Site RIGHT RADIAL, Blood Gas Patient Temperature 36.8, Arterial Blood pH 7.35L, Arterial Blood Partial Pressure CO2 39, Arterial Blood Partial Pressure O2 105H, Arterial Blood HCO3 20L, Arterial Blood Total CO2 21.5, Arterial Blood Oxygen Saturation 98, Arterial Blood Base Excess -4.5L, Aldo Test YES-POS, Blood Gas Ventilator Setting YES, Blood Gas Inspired Oxygen 90% 04/14/21 01:30: White Blood Count 32.9*H, Red Blood Count 4.81, Hemoglobin 14.9, Hematocrit 46, Mean Corpuscular Volume 96, Mean Corpuscular Hemoglobin 31, Mean Corpuscular Hemoglobin Concent 32, Red Cell Distribution Width 14.3, Platelet Count 329, Mean Platelet Volume 9.7, Immature Granulocyte % (Auto) 1, Neutrophils (%) (Auto) 94H, Lymphocytes (%) (Auto) 2L, Monocytes (%) (Auto) 3, Eosinophils (%) (Auto) 0, Basophils (%) (Auto) 0, Neutrophils # (Auto) 31.0H, Lymphocytes # (Auto) 0.5L, Monocytes # (Auto) 1.0, Eosinophils # (Auto) 0.0, Basophils # (Auto) 0.1, Immature Granulocyte # (Auto) 0.4H, Neutrophils % (Manual) 94, Lymphocytes % (Manual) 1, Monocytes % (Manual) 2, Band Neutrophils 3, Crenated Cell MARKED, Sodium Level 145, Potassium Level 4.6, Chloride Level 113H, Carbon Dioxide Level 18L, Anion Gap 14, Blood Urea Nitrogen 23H, Creatinine 1.01, Estimat Glomerular Filtration Rate 72, BUN/Creatinine Ratio 23, Glucose Level 100, Calcium Level 8.0L, Magnesium Level 2.3 04/14/21 05:05: Blood Gas Puncture Site RIGHT RADIAL, Blood Gas Patient Temperature 36.3, Arterial Blood pH 7.31*L, Arterial Blood Partial Pressure CO2 39, Arterial Blood Partial Pressure O2 78L, Arterial Blood HCO3 19L, Arterial Blood Total CO2 20.5L , Arterial Blood Oxygen Saturation 96, Arterial Blood Base Excess -6.1L, Aldo Test YES-POS, Blood Gas Ventilator Setting YES, Blood Gas Inspired Oxygen 80% Laboratory Tests 04/13/21 05:30 04/14/21 01:30 A/P: Assessment: COVID-19 pneumonia progressing to resp failure and requiring mechanical ventilation A Fib of unknown duration (seen on admission on 04/11/21), ventricular rate is well-controlled Plan: * Hospitalist and ICU services are managing COVID-19 and pneumonia and worsening resp failure * Ventricular rate from A Fib continues to remain controlled * Continue anticoag for stroke prophylaxis * Monitor labs RONNIE RAMIREZ MD [facility] Apr 14, 2021 17:39
[2021-04-14] MEDS: inSUlin ASPART (NovoLOG) 1 UNIT/0.01 ML (CHARGE PER UNIT) SQ SCH (23:40)
[2021-04-15] VITALS (31 sets, daily range): BP systolic 111–135; BP diastolic 55–79
[2021-04-15] MEDS: PHENYLEPHRINE DOUBLE STRENGTH 20MG/ 250 ML IV SCH ×8 (00:14→17:30)
[2021-04-15] MEDS: RT-ALBUTEROL HFA 8.5 GM INHALER IH SCH ×6 (02:51→22:10)
[2021-04-15 03:53] LABS: ABG BASE EXCESS -2.1 MMOL/L (-2.5-2.5); ABG OXYGEN SATURATION 90 % (94-100); ABG PCO2 35 MMHG (35-45); ABG PH 7.41 (7.37-7.43); ABG PO2 61 MMHG (79-93); ABG TCO2 22.9 MMOL/L (21.0-31.0)
[2021-04-15 04:02] LABS: ALLENS TEST ARTLINE; INSPIRED O2 55; PATIENT TEMP 37.1; VENTILATOR YES
[2021-04-15 04:05] LABS: CREATININE SERUM 0.5 MG/DL (0.60-1.30)
[2021-04-15 04:08] LABS: MAGNESIUM 1.5 MG/DL (1.6-2.4)
[2021-04-15 04:32] LABS: CLARITY,URINE CLEAR; COLOR,URINE YELLOW; GLUCOSE, URINE (UA) NEGATIVE (NEGATIVE); KETONES,URINE NEGATIVE (NEGATIVE); LEUKOCYTE ESTERASE ,URINE NEGATIVE (NEGATIVE); NITRITE,URINE NEGATIVE (NEGATIVE); PROTEIN,URINE 2+ (NEGATIVE)
[2021-04-15 04:44] LABS: POTASSIUM 4.2 MMOL/L (3.6-5.0)
[2021-04-15 04:45] LABS: CALCIUM 7.5 MG/DL (8.5-10.1)
[2021-04-15] MEDS ORDERED: MAGNESIUM 1 GM/100 ML IVPB 200 ML IV ONE (04:56)
[2021-04-15 05:04] LABS: BACTERIA,URINE TRACE /HPF; BILIRUBIN,URINE 1+ (NEGATIVE); SQUAMOUS EPITHELIAL CELL,UR RARE /HPF; WBC,URINE 0-2 /HPF
[2021-04-15] MEDS: MAGNESIUM 1 GM/100 ML IVPB 100 ML IV SCH ×2 (05:06→06:19)
[2021-04-15] MEDS: fentaNYL INJ 100 MCG/2 ML AMP IVP PRN ×2 (05:09→10:06)
[2021-04-15] MEDS: LACTATED RINGERS 1,000 ML IV SCH (05:54)
[2021-04-15] MEDS: inSUlin ASPART (NovoLOG) 1 UNIT/0.01 ML (CHARGE PER UNIT) SQ SCH ×2 (06:18→18:42)
[2021-04-15] MEDS: KCL 20 MEQ TAB (K-DUR) PO SCH (06:18)
[2021-04-15] MEDS: POTASSIUM CL 10MEQ/50ML IVPB 50 ML IV SCH (06:19)
[2021-04-15] MEDS: VASOPRESSIN INJECTION 20 UNIT in NS (IVPB) 100 ML IV SCH ×2 (06:20→17:30)
[2021-04-15] MEDS: RT--FLUTICASONE/SALMETEROL 113-14 (AIRDUO RespiCLICK) IH SCH (06:43)
--- NOTE | 2021-04-15 06:54 | Occ Therapy Progress Note ---
Therapy Progress Note Pt is currently intubated. OT will continue to monitor pt status and initiate treatment when pt is medically stable and able to actively participate in skilled therapy. MICHI AMAYA Apr 15, 2021 06:54
--- NOTE | 2021-04-15 07:29 | Diagnostic Imaging Report ---
EXAMINATION: Chest 1 view HISTORY: Intubation COMPARISON: 04/14/2021 FINDINGS: Heart size and pulmonary vasculature are stable. Medical support lines and tubes are unchanged. Stable patchy interstitial and airspace opacities seen throughout both lungs. No significant pleural effusion or pneumothorax. The osseous structures are intact. IMPRESSION: 1. Stable patchy interstitial and airspace opacities throughout both lungs. 2. Medical support lines and tubes are unchanged. Dictated by: Dictated on workstation # [id number]
--- NOTE | 2021-04-15 07:55 | Physical Therapy Progress Note ---
Therapy Progress Note Patient is currently intubated and sedated. Will monitor and start patient when appropriate. FLASH ALLEN PT Apr 15, 2021 07:55
--- NOTE | 2021-04-15 08:54 | Progress Note ---
BISHOP FRANCES MED STUDENT 04/15/21 0854: Subjective Date Seen by a Provider: Apr 15, 2021 Time Seen by a Provider: 06:50 Subjective/Events-last exam Patient remains sedated and intubated. TV 550. PEEP 8. FIO2 70%. RR 28. Vitals stable per bedside monitor. Review of Systems General: Other (unable to obtain) HEENT: Other (unable to obtain) Pulmonary: Other (unable to obtain) Cardiovascular: Other (unable to obtain) Gastrointestinal: Other (unable to obtain) Genitourinary: Other (unable to obtain) Musculoskeletal: other (unable to obtain) Neurological: Other (unable to obtain) Objective Exam Last Set of Vital Signs Vital Signs Date Time Temp Pulse Resp B/P (MAP) Pulse Ox O2 Delivery O2 Flow Rate FiO2 04/15/21 07:56 37.9 04/15/21 07:00 70 04/15/21 06:46 97 37 89 04/15/21 06:21 130/66 04/15/21 06:00 Mechanical Ventilator 55.00 Capillary Refill : Less Than 3 Seconds I&O Intake and Output 04/15/21 00:00 Intake Total 2823 ml Output Total 825 ml Balance 1998 ml Intake Oral 0 ml IV Total 2708 ml Tube Feeding 40 ml Other 75 ml Output Urine Total 675 ml Gastric Drainage Total 150 ml General: Other (Sedated/Intubated/Critically ill) HEENT: Atraumatic, Other (Endotracheally intubated. Pupils 2mm bilaterally and brisk. Nares without rhinorrhea. ) Neck: Supple, No LAD Lungs: Other (Diminished bibasilar) Heart: Regular Rate Abdomen: Normal Bowel Sounds, Soft Extremities: No Clubbing, No Cyanosis, No Edema, Normal Pulses Skin: No Rashes, No Significant Lesion Neuro: Other (sedated) Psych/Mental Status: Other (sedated) Results Lab Laboratory Tests 04/14/21 23:38: Glucometer 160H 04/15/21 03:40: White Blood Count 12.6H, Red Blood Count 2.69L, Hemoglobin 8.5#L, Hematocrit 26L , Mean Corpuscular Volume 97, Mean Corpuscular Hemoglobin 32, Mean Corpuscular Hemoglobin Concent 33, Red Cell Distribution Width 14.6H, Platelet Count 187, Mean Platelet Volume 10.1, Immature Granulocyte % (Auto) 1, Neutrophils (%) (Auto) 93H, Lymphocytes (%) (Auto) 3L, Monocytes (%) (Auto) 3, Eosinophils (%) (Auto) 0, Basophils (%) (Auto) 0, Neutrophils # (Auto) 11.7H, Lymphocytes # (Auto) 0.4L, Monocytes # (Auto) 0.4, Eosinophils # (Auto) 0.0, Basophils # (Auto) 0.0, Immature Granulocyte # (Auto) 0.1, Blood Gas Puncture Site ARTLINE, Blood Gas Patient Temperature 37.1, Arterial Blood pH 7.41, Arterial Blood Partial Pressure CO2 35, Arterial Blood Partial Pressure O2 61L, Arterial Blood HCO3 22L, Arterial Blood Total CO2 22.9, Arterial Blood Oxygen Saturation 90L, Arterial Blood Base Excess -2.1, Aldo Test ARTLINE, Blood Gas Ventilator Setting YES, Blood Gas Inspired Oxygen 55, Sodium Level 146H, Potassium Level 4.2, Chloride Level 111H, Carbon Dioxide Level 19L, Anion Gap 16H, Blood Urea Nitrogen 22H, Creatinine 0.50L, Estimat Glomerular Filtration Rate 163, BUN/Creatinine Ratio 44, Glucose Level 101, Calcium Level 7.5L, Magnesium Level 1.5L, Triglycerides Level 85 04/15/21 04:05: Urine Color YELLOW, Urine Clarity CLEAR, Urine pH 6.0, Urine Specific [place] >=1.030, Urine Protein 2+H, Urine Glucose (UA) NEGATIVE, Urine Ketones NEGATIVE, Urine Nitrite NEGATIVE, Urine Bilirubin 1+H, Urine Urobilinogen 0.2, Urine Leukocyte Esterase NEGATIVE, Urine RBC (Auto) 3+H, Urine RBC 10-25H, Urine WBC 0-2, Urine Squamous Epithelial Cells RARE, Urine Crystals NONE, Urine Bacteria TRACE, Urine Casts NONE, Urine Mucus NEGATIVE, Urine Culture Indicated NO Microbiology 04/13/21 Gram Stain - Final, Resulted 04/13/21 Sputum Culture - Preliminary, Resulted Slight Growth Present Assessment/Plan Assessment/Plan Assess & Plan/Chief Complaint Acute hypoxic respiratory failure/ARDS -continue ventilatory management -TV 550. FIO2 70%. PEEP 8. RR 28. COVID-19 PNA -Decadron Shock -vasopressin and neosynephrine, wean as tolerated -wean to keep MAP>65 -continue maintenance IVF's Leukocytosis -WBC down from 32.9 yesterday to 12.6 today -likely steroid induced Anemia -hgb down to 8.5 today. Dilutional vs GIB? -no obvious source bleeding -continue to monitor Suspected pneumomediastinum on CXR 04-14 -PEEP lowered yesterday -no evidence of worsening/increase in subQ emphysema on today chest xray -continue to monitor Hypercoagulable state associated with COVID-19 -d dimer on 04-10 >20 -lovenox therapeutic dosing, consider holding due to drop in hgb Atrial fibrillation -eliquis held as intubated -lovenox ordered GI ppx -protonix MAGGIE SHIPMAN DO 04/16/21 0430: Subjective Subjective/Events-last exam Patient remains intubated White blood cell count down Still very critical Check meds and labs Objective Exam General: Other (Sedated and intubated) Lungs: Normal Air Movement Heart: Regular Rate Assessment/Plan Assessment/Plan Assess & Plan/Chief Complaint Patient remains intubated White blood cell count down Still very critical Check meds and labs Updated daughter yesterday morning Supervisory-Addendum Brief Verification & Attestation Participated in pt care: history, MDM, physical Personally performed: exam, history, MDM, supervision of care Care discussed with: Medical Student Procedures: n/a Results interpretation: Verified all documentation Verification and Attestation of Medical Student E/M Service A medical student performed and documented this service in my presence. I reviewed and verified all information documented by the medical student and made modifications to such information, when appropriate. I personally performed the physical exam and medical decision making. Maggie Shipman, Apr 16, 2021,04:30 BISHOP FRANCES MED STUDENT Apr 15, 2021 08:54 MAGGIE SHIPMAN DO Apr 16, 2021 04:30
--- NOTE | 2021-04-15 09:07 | Tele-ICU Progress Note ---
Subjective Date Seen by a Provider: Apr 15, 2021 Time Seen by a Provider: 09:07 Sepsis Event Evaluation Height, Weight, BMI Height: '" Weight: lbs. oz. kg; 21.43 BMI Method: Exam Exam Patient acknowledged, consented, and participated in this virtual visit which was conducted using real time audio/video Vital Signs Date Time Temp Pulse Resp B/P (MAP) Pulse Ox O2 Delivery O2 Flow Rate FiO2 04/15/21 07:56 37.9 04/15/21 07:00 70 04/15/21 06:46 97 37 89 55 04/15/21 06:21 77 130/66 04/15/21 06:20 77 130/66 04/15/21 06:00 77 16 130/66 (87) 90 Mechanical Ventilator 55.00 04/15/21 05:00 77 34 118/60 (79) 90 Mechanical Ventilator 55.00 04/15/21 04:15 91 Mechanical Ventilator 55 04/15/21 04:00 64 31 116/62 (80) 90 Mechanical Ventilator 55.00 04/15/21 03:00 61 33 116/56 (76) 90 Mechanical Ventilator 55.00 04/15/21 02:51 55 31 94 55 04/15/21 02:00 62 28 122/58 (79) 91 Mechanical Ventilator 55.00 04/15/21 01:00 70 04/15/21 01:00 59 27 111/57 (75) 90 Mechanical Ventilator 55.00 04/15/21 00:36 91 Mechanical Ventilator 55 04/15/21 00:14 69 134/67 04/15/21 00:12 36.4 69 28 134/67 (89) 91 Mechanical Ventilator 55.00 04/15/21 00:00 71 23 132/66 (88) 92 Mechanical Ventilator 55.00 04/14/21 23:00 66 27 147/75 (99) 91 Mechanical Ventilator 55.00 04/14/21 22:22 57 29 94 55 04/14/21 22:00 68 30 147/76 (99) 91 Mechanical Ventilator 55.00 04/14/21 21:00 61 24 139/71 (93) 91 Mechanical Ventilator 55.00 04/14/21 20:39 90 Mechanical Ventilator 55 04/14/21 20:22 68 140/74 04/14/21 20:22 68 140/74 04/14/21 20:22 68 140/74 04/14/21 20:00 73 32 143/76 (98) 91 Mechanical Ventilator 55.00 04/14/21 19:56 68 140/74 04/14/21 19:44 36.8 04/14/21 19:00 68 20 136/71 (92) 93 Mechanical Ventilator 55.00 04/14/21 19:00 68 04/14/21 18:45 66 24 90 55 04/14/21 18:00 73 37 98/47 (64) 92 Mechanical Ventilator 55.00 04/14/21 17:00 65 30 119/60 (79) 93 Mechanical Ventilator 55.00 04/14/21 16:34 61 119/66 04/14/21 16:21 36.6 04/14/21 16:20 91 Mechanical Ventilator 55 04/14/21 16:00 66 29 118/63 (81) 91 Mechanical Ventilator 55.00 04/14/21 15:36 65 129/69 04/14/21 15:00 63 27 127/64 (85) 92 Mechanical Ventilator 55.00 04/14/21 14:03 67 30 92 55 04/14/21 14:00 71 28 114/64 (81) 92 Mechanical Ventilator 55.00 04/14/21 13:00 85 04/14/21 13:00 70 30 127/75 (92) 92 Mechanical Ventilator 55.00 04/14/21 12:45 36.5 04/14/21 12:42 72 138/83 04/14/21 12:00 77 23 123/63 (83) 93 Mechanical Ventilator 55.00 04/14/21 11:27 92 Mechanical Ventilator 55 04/14/21 11:26 84 123/62 04/14/21 11:22 79 117/64 04/14/21 11:00 78 30 116/65 (82) 91 Mechanical Ventilator 55.00 04/14/21 10:22 84 28 92 55 04/14/21 10:00 81 29 119/67 (84) 92 Mechanical Ventilator 55.00 I & O 04/15/21 07:00 Intake Total 1568 ml Output Total 1015 ml Balance 553 ml Height & Weight Height: '" Weight: lbs. oz. kg; 21.43 BMI Method: General Appearance: No Apparent Distress, WD/WN, Chronically ill, Other (Sedated and intubated) HEENT: PERRL/EOMI, Pharynx Normal Respiratory: No Accessory Muscle Use, No Respiratory Distress, Decreased Breath Sounds Cardiovascular: Regular Rate, Rhythm Capillary Refill: Less Than 3 Seconds Peripheral Pulses: 1+ Dorsalis Pedis (R), 1+ Left Dors-Pedis (L) (see free text) Gastrointestinal: soft Extremity: Normal Capillary Refill Neurologic/Psychiatric: Alert, Oriented x3 Skin: Normal Color, Warm/Dry Results Lab Laboratory Tests 04/14/21 01:30 04/15/21 03:40 Assessment/Plan Assessment/Plan (Tele-ICU Physician , Progress Note ) Available chart/ vitals / labs / Images reviewed Video assessment done using teleICU camera, rest of exam as per RN Discussed with RN , EXAM PER RN Events overnight : started on pressors FEBRILE I/O = pos 1999 Drips: Pressors: vaso 0.3 lisa 100 hemodynamically stable Sedation gtt: ( RASS -2 ) propofol VENT SETTINGS and ABG reviewed Not candidate for SBT today Contraindications: Cardiovascular Stability / Sedation Score / FI02/PEEP / ABG / CXR Consultants: arjun Hospital course: 04/11 - Vapotherm at 35 L and 85% 04/13 = to ICU , BiPAP 16/10 100% -> failed -> INTUBATED , peep 16 100% 04/14 - lisa/vaso , WBC 32 , AC 28 550 +12 55% 04/15 - hb ? 8.4 70 % +8 A/P AHRF / ARDS due to severe COVID19 -intubated 04/13 - AC 28 550 +8 70 % - decrease rr to 24 -prone position if able Suspected pneumomediastinum on left on cxr 04/14 - stable - CAN FOLLOW PEEP PROTOCOL Shock - probly sepsis - cont weaning pressors , fluid resuscitation for oliguria [id number]/COVID-19 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 , Dx 3 weeks [employer] - he took Ivermectin ) -Steroids IV - started -Hypercoagulable state , DDIMER > 20 on 04/10 -> on Eliquis - > changed to lovenox after intubation ( no evidence of large PE on CT 04/10 ) Suspected superimposed bact PNA -empiric ceftriaxone 04/11 -> Cx sputum 04/13 post intubation pending leukocytosis - provbably steroids induced week 3 of covid - awit cx , leginella ab pending Anemia - hb ? 8.4 - ?delutional vs GIB - - follow at noon , PPI BID , -( on full dose lovenox - HOLD A Fib of unknown duration (seen on admission on 04/11/21) - cards consulted - AC with eliquis - > changed to lovenox 04/13 - rate controlled CODE Status - FULL , as per notes on H&P : " He would be ok with being on the ventilator if needed. When asked about code status, he says, "Just try for one round and then let me go." Lines : Left femrol line 04/13 (Central Line Necessity Reviewed) Trotter: 04/13 OG: + Nutrition: TF to start Analgesia: Anxiety/ delirium VTE Prophylaxis: lovenox full dose Stress Ulcer Prophylaxis: PO Glycemic Control: Plans in collaboration with bedside consultants and IM MDs. Discussed with RN to reach out if any questions or concerns A total of 45 minutes of critical care time was devoted to this patient today, required to treat and/or prevent further deterioration of critical care condition ( as above) . NNAMDI KRUSE MD Apr 15, 2021 09:07
--- NOTE | 2021-04-15 09:27 | Progress Note - Hospitalist ---
JESSESTEPHANIE Sarah 04/15/21 0927: Subjective HPI/CC On Admission Date Seen by Provider: Apr 15, 2021 Time Seen by Provider: 10:30 Saud Boston is a 75 year old male with PMH HLD who presented with shortness of breath. He was reportedly diagnosed with COVID three weeks ago. He had been doing ok until a few days ago when he started getting short of breath. He has had fever and cough. He denies chest pain. He denies nausea and vomiting. He denies diarrhea. He would be ok with being on the ventilator if needed. When asked about code status, he says, "Just try for one round and then let me go. Subjective/Events-last exam Pt continues to intubated and sedated. Continues to require phenylephrine and va sopressors. Current vent settings are the following RR 37 FIO2 70 TV 556 Min Vent 21.2 PEEP 8 Objective Exam Vital Signs Vital Signs Date Time Temp Pulse Resp B/P (MAP) Pulse Ox O2 Delivery O2 Flow Rate FiO2 04/15/21 12:00 91 Mechanical Ventilator 70 04/15/21 12:00 36.9 04/15/21 10:42 77 113/55 04/15/21 10:27 29 04/15/21 10:00 70.00 Capillary Refill : Less Than 3 Seconds General Appearance: Chronically ill Respiratory: Accessory Muscle Use, Crackles, Respiratory Distress Cardiovascular: Irregularly Irregular Gastrointestinal: Normal Bowel Sounds Results/Procedures Lab Laboratory Tests 04/15/21 03:40 04/15/21 10:57 Patient resulted labs reviewed. Imaging: Reviewed Imaging Report Assessment/Plan Assessment and Plan Assess & Plan/Chief Complaint Saud Boston is a 75 year old male who was admitted 04/10 for acute respiratory failure three weeks after diagnosis of COVID. In addition, patient is currently being treated for afib and HAYDE. Day 3 of intubation Acute respiratory failure COVID 19 -04/10: Pt admitted - originally requiring 6-8L NC. -Chest xray consistent with pna. Elevated D-dimer -04/13: Pt intubated Plan: -Continue to monitor ABGs and vent settings -Continue dexamethasone, eliquis -Continues to require phenylephrine and vasopressin -Monitor labs and electrolytes Acute anemia -04/15: Drop in Hb from 14 to 8 Plan -Labs ordered: INR, D-dimer -Started PPI -Continue to monitor Afib - chronic -Rates well controlled -Continue to keep Mg>2, K>4 -Continue Eliquis -Continue to monitor HAYDE - resolved -Managed with IV fluids Critical Care: Ventilator Management MAGGIE SHIPMAN DO 04/16/21 0445: Subjective Subjective/Events-last exam Patient remains intubated White blood cell count down Still very critical Check meds and labs Updated daughter Objective Exam General Appearance: No Apparent Distress, WD/WN, Chronically ill, Other (Sedated and intubated) Respiratory: Crackles Cardiovascular: Regular Rate, Rhythm Assessment/Plan Assessment and Plan Assess & Plan/Chief Complaint Critical status Updated daughter Supervisory-Addendum Brief Verification & Attestation Participated in pt care: history, MDM, physical Personally performed: exam, history, MDM, supervision of care Care discussed with: Medical Student Procedures: n/a Results interpretation: Verified all documentation Verification and Attestation of Medical Student E/M Service A medical student performed and documented this service in my presence. I reviewed and verified all information documented by the medical student and made modifications to such information, when appropriate. I personally performed the physical exam and medical decision making. Maggie Shipman, Apr 16, 2021,04:44 STEPHANIE MOLINA Apr 15, 2021 09:27 MAGGIE SHIPMAN DO Apr 16, 2021 04:45
--- NOTE | 2021-04-15 09:37 | Progress Note - Cardiology ---
Cardiology SOAP Progress Note Subjective: Intubated and sedated Objective: I&O/Vital Signs 04/15/21 04/15/21 04/15/21 04/15/21 20:49 21:00 22:00 22:12 Temp 36.2 Pulse 75 89 72 Resp 23 25 32 B/P (MAP) 122/65 (84) 115/57 (76) Pulse Ox 91 90 92 O2 Delivery Mechanical Ventilator Mechanical Ventilator Mechanical Ventilator O2 Flow Rate 60.00 60.00 60.00 FiO2 60 04/15/21 04/16/21 04/16/21 04/16/21 23:00 00:00 00:00 01:00 Pulse 65 75 58 Resp 25 24 28 B/P (MAP) 120/60 (80) 117/57 (77) 120/59 (79) Pulse Ox 93 91 93 93 O2 Delivery Mechanical Ventilator Mechanical Ventilator Mechanical Ventilator Mechanical Ventilator O2 Flow Rate 60.00 60.00 60.00 FiO2 60 04/16/21 04/16/21 04/16/21 04/16/21 01:00 02:00 02:43 03:00 Pulse 70 75 82 75 Resp 28 32 28 B/P (MAP) 93/49 (64) 111/50 (70) Pulse Ox 90 93 91 O2 Delivery Mechanical Ventilator Mechanical Ventilator O2 Flow Rate 60.00 60.00 FiO2 60 04/16/21 04/16/21 04/16/21 04/16/21 04:00 04:00 04:14 05:00 Temp 35.8 Pulse 78 80 Resp 29 28 B/P (MAP) 122/54 (76) 123/55 (77) Pulse Ox 92 91 91 O2 Delivery Mechanical Ventilator Mechanical Ventilator Mechanical Ventilator O2 Flow Rate 60.00 60.00 FiO2 60 04/16/21 04/16/21 04/16/21 06:00 06:50 06:59 Pulse 72 80 60 Resp 32 30 B/P (MAP) 118/52 (74) Pulse Ox 93 93 O2 Delivery Mechanical Ventilator O2 Flow Rate 60.00 FiO2 60 04/16/21 00:00 Intake Total 1473 ml Output Total 485 ml Balance 988 ml Constitutional: other (Intubated, on mech vent, unable to communicate; I did not physically examine the patient to reduce exposure to COVID-19) Respiratory: other (ventilator - diminished breath sounds) Cardiovascular: irregularly irregular Gastrointestional: soft, audible bowel sounds Extremities: no lower extremity edema bilateral Neurologic/Psychiatric: other (sedated, unable to follow commands) Skin: No rash on exposed areas, No ulcerations on exposed areas Results/Procedures: Labs Laboratory Tests 04/15/21 10:57: White Blood Count 20.1H, Red Blood Count 3.97L, Hemoglobin 12.4L, Hematocrit 37L , Mean Corpuscular Volume 94, Mean Corpuscular Hemoglobin 31, Mean Corpuscular Hemoglobin Concent 33, Red Cell Distribution Width 14.5, Platelet Count 284, Mean Platelet Volume 10.2, Prothrombin Time 15.3H, INR Comment 1.2, D-Dimer 4.31H 04/15/21 12:13: Glucometer 144H 04/15/21 18:38: Glucometer 164H 04/15/21 23:59: Glucometer 145H 04/16/21 04:10: White Blood Count 10.0, Red Blood Count 3.90L, Hemoglobin 12.0L, Hematocrit 37L, Mean Corpuscular Volume 95, Mean Corpuscular Hemoglobin 31, Mean Corpuscular Hemoglobin Concent 32, Red Cell Distribution Width 14.6H, Platelet Count 217, Mean Platelet Volume 9.9, Immature Granulocyte % (Auto) 1, Neutrophils (%) (Auto) 93H, Lymphocytes (%) (Auto) 3L, Monocytes (%) (Auto) 3, Eosinophils (%) (Auto) 0, Basophils (%) (Auto) 0, Neutrophils # (Auto) 9.3H, Lymphocytes # (Auto) 0.3L, Monocytes # (Auto) 0.3, Eosinophils # (Auto) 0.0, Basophils # (Auto) 0.0, Immature Granulocyte # (Auto) 0.1, Blood Gas Puncture Site RIGHT RADIAL, Blood Gas Patient Temperature 35.8, Arterial Blood pH 7.44H, Arterial Blood Partial Pressure CO2 36, Arterial Blood Partial Pressure O2 60L, Arterial Blood HCO3 24, Arterial Blood Total CO2 25.5, Arterial Blood Oxygen Saturation 92L, Arterial Blood Base Excess 0.4, Aldo Test YES-POS, Blood Gas Ventilator Setting YES, Blood Gas Inspired Oxygen 60%, Sodium Level 145, Potassium Level 3. 8, Chloride Level 115H, Carbon Dioxide Level 22, Anion Gap 8, Blood Urea Nitrogen 27H, Creatinine 0.67, Estimat Glomerular Filtration Rate 116, BUN/Creatinine Ratio 40, Glucose Level 123H, Calcium Level 8.1L, Magnesium Level 2.6H Microbiology 04/13/21 Gram Stain - Final, Complete 04/13/21 Sputum Culture - Final, Complete Usual upper respiratory jack A/P: Assessment: COVID-19 pneumonia progressing to resp failure and requiring mechanical ventilation A Fib of unknown duration (seen on admission on 04/11/21), ventricular rate is well-controlled Plan: * Hospitalist and ICU services are managing COVID-19 and pneumonia and worsening resp failure * Ventricular rate from A Fib continues to remain controlled * Continue anticoag for stroke prophylaxis * Monitor labs HORTENCIA STAFFORD Apr 15, 2021 09:37
--- NOTE | 2021-04-15 09:51 | Progress Note - Cardiology ---
Cardiology SOAP Progress Note Subjective: Intubated and on mech vent. Not able to communicatie Objective: I&O/Vital Signs 04/14/21 04/14/21 04/14/21 04/15/21 22:00 22:22 23:00 00:00 Pulse 68 57 66 71 Resp 30 29 27 23 B/P (MAP) 147/76 (99) 147/75 (99) 132/66 (88) Pulse Ox 91 94 91 92 O2 Delivery Mechanical Ventilator Mechanical Ventilator Mechanical Ventilator O2 Flow Rate 55.00 55.00 55.00 FiO2 55 04/15/21 04/15/21 04/15/21 04/15/21 00:12 00:14 00:36 01:00 Temp 36.4 Pulse 69 69 59 Resp 28 27 B/P (MAP) 134/67 (89) 134/67 111/57 (75) Pulse Ox 91 91 90 O2 Delivery Mechanical Ventilator Mechanical Ventilator Mechanical Ventilator O2 Flow Rate 55.00 55.00 FiO2 55 04/15/21 04/15/21 04/15/21 04/15/21 01:00 02:00 02:51 03:00 Pulse 70 62 55 61 Resp 28 31 33 B/P (MAP) 122/58 (79) 116/56 (76) Pulse Ox 91 94 90 O2 Delivery Mechanical Ventilator Mechanical Ventilator O2 Flow Rate 55.00 55.00 FiO2 55 04/15/21 04/15/21 04/15/21 04/15/21 04:00 04:15 05:00 06:00 Pulse 64 77 77 Resp 31 34 16 B/P (MAP) 116/62 (80) 118/60 (79) 130/66 (87) Pulse Ox 90 91 90 90 O2 Delivery Mechanical Ventilator Mechanical Ventilator Mechanical Ventilator Mechanical Ventilator O2 Flow Rate 55.00 55.00 55.00 FiO2 55 04/15/21 04/15/21 04/15/21 04/15/21 06:20 06:21 06:46 07:00 Pulse 77 77 97 Resp 37 B/P (MAP) 130/66 130/66 Pulse Ox 89 FiO2 55 70 04/15/21 07:56 Temp 37.9 04/15/21 00:00 Intake Total 1017 ml Output Total 550 ml Balance 467 ml Constitutional: other (Intubated, on mech vent, unable to communicate; I did not physically examine the patient to reduce exposure to COVID-19) Respiratory: other (ventilator - diminished breath sounds) Cardiovascular: irregularly irregular Gastrointestional: soft Extremities: no lower extremity edema bilateral Neurologic/Psychiatric: other (sedated, unable to follow commands) Skin: No rash on exposed areas, No ulcerations on exposed areas Results/Procedures: Labs Laboratory Tests 04/14/21 23:38: Glucometer 160H 04/15/21 03:40: White Blood Count 12.6H, Red Blood Count 2.69L, Hemoglobin 8.5#L, Hematocrit 26L , Mean Corpuscular Volume 97, Mean Corpuscular Hemoglobin 32, Mean Corpuscular Hemoglobin Concent 33, Red Cell Distribution Width 14.6H, Platelet Count 187, Mean Platelet Volume 10.1, Immature Granulocyte % (Auto) 1, Neutrophils (%) (Auto) 93H, Lymphocytes (%) (Auto) 3L, Monocytes (%) (Auto) 3, Eosinophils (%) (Auto) 0, Basophils (%) (Auto) 0, Neutrophils # (Auto) 11.7H, Lymphocytes # (Auto) 0.4L, Monocytes # (Auto) 0.4, Eosinophils # (Auto) 0.0, Basophils # (Auto) 0.0, Immature Granulocyte # (Auto) 0.1, Blood Gas Puncture Site ARTLINE, Blood Gas Patient Temperature 37.1, Arterial Blood pH 7.41, Arterial Blood Partial Pressure CO2 35, Arterial Blood Partial Pressure O2 61L, Arterial Blood HCO3 22L, Arterial Blood Total CO2 22.9, Arterial Blood Oxygen Saturation 90L, Arterial Blood Base Excess -2.1, Aldo Test ARTLINE, Blood Gas Ventilator S etting YES, Blood Gas Inspired Oxygen 55, Sodium Level 146H, Potassium Level 4. 2, Chloride Level 111H, Carbon Dioxide Level 19L, Anion Gap 16H, Blood Urea Nitrogen 22H, Creatinine 0.50L, Estimat Glomerular Filtration Rate 163, BUN/Creatinine Ratio 44, Glucose Level 101, Calcium Level 7.5L, Magnesium Level 1.5L, Triglycerides Level 85 04/15/21 04:05: Urine Color YELLOW, Urine Clarity CLEAR, Urine pH 6.0, Urine Specific [place] >=1.030, Urine Protein 2+H, Urine Glucose (UA) NEGATIVE, Urine Ketones NEGATIVE, Urine Nitrite NEGATIVE, Urine Bilirubin 1+H, Urine Urobilinogen 0.2, Urine Leukocyte Esterase NEGATIVE, Urine RBC (Auto) 3+H, Urine RBC 10-25H, Urine WBC 0-2, Urine Squamous Epithelial Cells RARE, Urine Crystals NONE, Urine Bacteria TRACE, Urine Casts NONE, Urine Mucus NEGATIVE, Urine Culture Indicated NO Microbiology 04/13/21 Gram Stain - Final, Resulted 04/13/21 Sputum Culture - Preliminary, Resulted Slight Growth Present Laboratory Tests 04/14/21 01:30 04/15/21 03:40 A/P: Assessment: COVID-19 pneumonia progressing to resp failure and requiring mechanical ventilation A Fib of unknown duration (seen on admission on 04/11/21), ventricular rate is well-controlled Plan: * Hospitalist and ICU services are managing COVID-19 and pneumonia and worsening resp failure * Ventricular rate from A Fib continues to remain controlled * Continue anticoag for stroke prophylaxis * Monitor labs RONNIE RAMIREZ MD FACP [facility] Apr 15, 2021 09:51
[2021-04-15] MEDS: ACETAMINOPHEN 500 MG TAB (TYLENOL) PO PRN (10:05)
[2021-04-15] MEDS: PANTOPRAZOLE 40 MG (PROTONIX) VIAL IV SCH ×2 (10:06→20:45)
[2021-04-15] MEDS: 1/2 NS IV SOLUTION 1,000 ML IV SCH ×2 (10:33→20:45)
[2021-04-15] MEDS: PROPOFOL DRIP (ICU) 100 ML IV SCH ×4 (10:40→17:33)
[2021-04-15 11:06] LABS: HEMATOCRIT 37 % (40-54); MEAN CORPUSCULAR HEMOGLOBIN 31 pg (25-34); MEAN CORPUSCULAR HGB CONC 33 g/dL (32-36); MEAN CORPUSCULAR VOLUME 94 fL (80-99); MEAN PLATELET VOLUME 10.2 fL (9.0-12.2); PLATELET COUNT 284 10^3/uL (130-400); WHITE BLOOD COUNT 20.1 10^3/uL (4.3-11.0)
[2021-04-15 11:22] LABS: HEMOGLOBIN 12.4 g/dL (13.3-17.7)
[2021-04-15 11:25] LABS: FIBRIN DEGRADATION PRODUCTS 4.31 UG/ML (0.00-0.49); INR 1.2 (0.8-1.4); PROTHROMBIN TIME PATIENT 15.3 SEC (12.2-14.7)
[2021-04-15] MEDS: ENOXAPARIN 80 MG/0.8 ML (LOVENOX) SYR SC SCH (18:41)
[2021-04-16] VITALS (30 sets, daily range): BP systolic 80–134; BP diastolic 49–62
[2021-04-16] MEDS: inSUlin ASPART (NovoLOG) 1 UNIT/0.01 ML (CHARGE PER UNIT) SQ SCH ×4 (00:17→18:18)
[2021-04-16] MEDS: PROPOFOL DRIP (ICU) 100 ML IV SCH ×8 (01:42→23:44)
[2021-04-16] MEDS: RT-ALBUTEROL HFA 8.5 GM INHALER IH SCH ×6 (02:43→21:46)
[2021-04-16 04:23] LABS: ABG BASE EXCESS 0.4 MMOL/L (-2.5-2.5); ABG OXYGEN SATURATION 92 % (94-100); ABG PCO2 36 MMHG (35-45); ABG PH 7.44 (7.37-7.43); ABG PO2 60 MMHG (79-93); ABG TCO2 25.5 MMOL/L (21.0-31.0)
[2021-04-16 04:26] LABS: ALLENS TEST YES-POS; BASOPHILS % (AUTO) 0 % (0-10); EOSINOPHILS % (AUTO) 0 % (0-10); HEMATOCRIT 37 % (40-54); LYMPHOCYTES # (AUTO) 0.3 10^3/uL (1.0-4.0); LYMPHOCYTES % (AUTO) 3 % (12-44); MEAN CORPUSCULAR HEMOGLOBIN 31 pg (25-34); MEAN CORPUSCULAR HGB CONC 32 g/dL (32-36); MEAN CORPUSCULAR VOLUME 95 fL (80-99); MEAN PLATELET VOLUME 9.9 fL (9.0-12.2); MONOCYTES # (AUTO) 0.3 10^3/uL (0.0-1.0); MONOCYTES % (AUTO) 3 % (0-12); NEUTROPHILS # (AUTO) 9.3 10^3/uL (1.8-7.8); NEUTROPHILS % (AUTO) 93 % (42-75); PLATELET COUNT 217 10^3/uL (130-400)
[2021-04-16 04:27] LABS: INSPIRED O2 60%; PATIENT TEMP 35.8; VENTILATOR YES
[2021-04-16 04:38] LABS: POTASSIUM 3.8 MMOL/L (3.6-5.0)
[2021-04-16 04:39] LABS: CALCIUM 8.1 MG/DL (8.5-10.1)
[2021-04-16 04:44] LABS: CREATININE SERUM 0.67 MG/DL (0.60-1.30)
[2021-04-16 04:46] LABS: MAGNESIUM 2.6 MG/DL (1.6-2.4)
[2021-04-16] MEDS: 1/2 NS IV SOLUTION 1,000 ML IV SCH ×2 (05:58→16:15)
[2021-04-16] MEDS: MAGNESIUM 1 GM/100 ML IVPB 100 ML IV SCH (05:58)
[2021-04-16] MEDS: KCL 20 MEQ TAB (K-DUR) PO SCH (05:58)
[2021-04-16] MEDS: POTASSIUM CL 10MEQ/50ML IVPB 50 ML IV SCH (05:59)
--- NOTE | 2021-04-16 06:43 | Occ Therapy Progress Note ---
Therapy Progress Note Pt is currently intubated. OT will continue to monitor pt status and initiate treatment when pt is medically stable and able to actively participate in skilled therapy. MICHI AMAYA Apr 16, 2021 06:43
--- NOTE | 2021-04-16 07:34 | Diagnostic Imaging Report ---
INDICATION: Respiratory failure Portable AP view of chest is obtained with comparison made to study one day earlier. There has been mild overall worsening of extensive bilateral infiltrates which are primarily airspace disease in nature. No pneumothorax is identified. Endotracheal tube is in place with tip at the level of the thoracic inlet and nasogastric tube passes below the diaphragm. Lucency projecting over the upper abdomen could represent pneumoperitoneum IMPRESSION: Worsening extensive bilateral pulmonary infiltrates with apparent pneumoperitoneum. Clinical correlation is recommended. Dictated by: Dictated on workstation # [id number]
--- NOTE | 2021-04-16 08:20 | Tele-ICU Progress Note ---
Subjective Date Seen by a Provider: Apr 16, 2021 Time Seen by a Provider: 08:20 Subjective/Events-last exam Patient was evaluated by me via video visit earlier this morning and a note is to the on the chest x-ray there is a question of pneumoperitoneum. Hence I ordered abdominal x-rays which is confirmed that patient has a pneumoperitoneum. Per RN the abdomen is soft however patient is heavily sedated. I have ordered a CT of the abdomen and pelvis without contrast on a stat basis and notified the nurse to get a general surgeon consultation for attending physician choice. Patient currently on on Aguie-Synephrine and vasopressin. Review of Systems ROS PER ATTENDING PHYSICIAN Sepsis Event Evaluation Height, Weight, BMI Height: '" Weight: lbs. oz. kg; 21.43 BMI Method: Exam Exam Patient acknowledged, consented, and participated in this virtual visit which was conducted using real time audio/video Vital Signs Date Time Temp Pulse Resp B/P (MAP) Pulse Ox O2 Delivery O2 Flow Rate FiO2 04/16/21 06:50 80 30 93 60 04/16/21 06:00 72 32 118/52 (74) 93 Mechanical Ventilator 60.00 04/16/21 05:00 80 28 123/55 (77) 91 Mechanical Ventilator 60.00 04/16/21 04:14 35.8 04/16/21 04:00 91 Mechanical Ventilator 60 04/16/21 04:00 78 29 122/54 (76) 92 Mechanical Ventilator 60.00 04/16/21 03:00 75 28 111/50 (70) 91 Mechanical Ventilator 60.00 04/16/21 02:43 82 32 93 60 04/16/21 02:00 75 28 93/49 (64) 90 Mechanical Ventilator 60.00 04/16/21 01:00 70 04/16/21 01:00 58 28 120/59 (79) 93 Mechanical Ventilator 60.00 04/16/21 00:00 75 24 117/57 (77) 93 Mechanical Ventilator 60.00 04/16/21 00:00 91 Mechanical Ventilator 60 04/15/21 23:00 65 25 120/60 (80) 93 Mechanical Ventilator 60.00 04/15/21 22:12 72 32 92 60 04/15/21 22:00 89 25 115/57 (76) 90 Mechanical Ventilator 60.00 04/15/21 21:00 75 23 122/65 (84) 91 Mechanical Ventilator 60.00 04/15/21 20:49 36.2 Mechanical Ventilator 60.00 04/15/21 20:00 59 24 125/65 (85) 91 Mechanical Ventilator 60.00 04/15/21 20:00 91 Mechanical Ventilator 60 04/15/21 19:00 63 27 129/71 (90) 92 Mechanical Ventilator 60.00 04/15/21 19:00 63 04/15/21 18:54 56 28 93 60 04/15/21 18:00 63 24 118/67 (84) 91 Mechanical Ventilator 60.00 04/15/21 17:33 61 134/71 04/15/21 17:32 61 132/74 04/15/21 17:30 66 133/74 04/15/21 17:30 60 134/75 04/15/21 17:00 55 27 135/79 (97) 93 Mechanical Ventilator 60.00 04/15/21 16:24 36.2 04/15/21 16:00 60 27 127/69 (88) 92 Mechanical Ventilator 60.00 04/15/21 16:00 91 Mechanical Ventilator 70 04/15/21 15:00 68 28 132/75 (94) 91 Mechanical Ventilator 60.00 04/15/21 14:50 60 04/15/21 14:47 56 29 94 70 04/15/21 14:00 57 27 127/68 (87) 94 Mechanical Ventilator 70.00 04/15/21 13:00 58 27 119/66 (83) 94 Mechanical Ventilator 70.00 04/15/21 12:32 66 04/15/21 12:00 91 Mechanical Ventilator 70 04/15/21 12:00 79 31 111/56 (74) 92 Mechanical Ventilator 70.00 04/15/21 12:00 36.9 04/15/21 11:00 81 30 126/64 (84) 93 Mechanical Ventilator 70.00 04/15/21 10:42 77 113/55 04/15/21 10:40 75 119/57 04/15/21 10:36 79 116/57 04/15/21 10:27 82 29 93 70 04/15/21 10:00 82 35 124/61 (82) 93 Mechanical Ventilator 70.00 04/15/21 09:00 86 35 135/66 (89) 91 Mechanical Ventilator 70.00 I & O 04/16/21 07:00 Intake Total 3345 ml Output Total 3210 ml Balance 135 ml Height & Weight Height: '" Weight: lbs. oz. kg; 21.43 BMI Method: General Appearance: No Apparent Distress, WD/WN, Chronically ill, Other (Sedated and intubated) HEENT: PERRL/EOMI, Pharynx Normal Respiratory: Crackles Cardiovascular: Regular Rate, Rhythm Capillary Refill: Less Than 3 Seconds Peripheral Pulses: 1+ Dorsalis Pedis (R), 1+ Left Dors-Pedis (L) (see free text) Gastrointestinal: soft Extremity: Normal Capillary Refill Neurologic/Psychiatric: Alert, Oriented x3 Skin: Normal Color, Warm/Dry Other comments PE PER ATTENDING PHYSICIAN Results Lab Laboratory Tests 04/15/21 03:40 04/15/21 10:57 04/16/21 04:10 Meds REVIEWED. Radiology CXR,AXR REVIEWED Assessment/Plan Assessment/Plan 1. Severe Covid19 pneumonia 2. Severe ARDS with acute hypoxic respiratory failure 3. Hypotension on vasopressors 4. Pneumoperitoneum noted on the chest x-ray and abdominal x-ray suspicious for perforation. Abdominal viscus. 5. Suspected bacterial pneumonia superimposed on viral pneumonia. 6. High risk for DVT. Recommendations 1. Continue current vent settings with 60% FiO2 2. Continue to titrate Augie-Synephrine and vasopressin to keep map over 65 3. We will get a CT of the abdomen and pelvis stat without contrast 4. General surgery consultation ASF 5. DVT prophylaxis but will hold her Lovenox for now 6. Ulcer prophylaxis with Protonix. 7. We will start IV Zosyn for possible superadded bacterial pneumonia and/or acute peritonitis. 8. Prognosis is poor 9. Reviewed with RN. Critical Care: Critically Ill Patient Time spent with patient (mins): 40 LUIS A LONG MD Apr 16, 2021 08:20
--- NOTE | 2021-04-16 08:34 | Progress Note - Cardiology ---
Cardiology SOAP Progress Note Subjective: Intubated and sedated Objective: I&O/Vital Signs 04/15/21 04/16/21 04/16/21 04/16/21 23:00 00:00 00:00 01:00 Pulse 65 75 58 Resp 25 24 28 B/P (MAP) 120/60 (80) 117/57 (77) 120/59 (79) Pulse Ox 93 91 93 93 O2 Delivery Mechanical Ventilator Mechanical Ventilator Mechanical Ventilator Mechanical Ventilator O2 Flow Rate 60.00 60.00 60.00 FiO2 60 04/16/21 04/16/21 04/16/21 04/16/21 01:00 02:00 02:43 03:00 Pulse 70 75 82 75 Resp 28 32 28 B/P (MAP) 93/49 (64) 111/50 (70) Pulse Ox 90 93 91 O2 Delivery Mechanical Ventilator Mechanical Ventilator O2 Flow Rate 60.00 60.00 FiO2 60 04/16/21 04/16/21 04/16/21 04/16/21 04:00 04:00 04:14 05:00 Temp 35.8 Pulse 78 80 Resp 29 28 B/P (MAP) 122/54 (76) 123/55 (77) Pulse Ox 92 91 91 O2 Delivery Mechanical Ventilator Mechanical Ventilator Mechanical Ventilator O2 Flow Rate 60.00 60.00 FiO2 60 04/16/21 04/16/21 04/16/21 04/16/21 06:00 06:50 06:59 07:00 Pulse 72 80 60 72 Resp 32 30 30 B/P (MAP) 118/52 (74) 120/62 (81) Pulse Ox 93 93 91 O2 Delivery Mechanical Ventilator Mechanical Ventilator O2 Flow Rate 60.00 60.00 FiO2 60 04/16/21 04/16/21 04/16/21 08:00 09:00 10:02 Pulse 73 77 71 Resp 30 32 30 B/P (MAP) 134/62 (86) 121/57 (78) Pulse Ox 94 89 93 O2 Delivery Mechanical Ventilator Mechanical Ventilator O2 Flow Rate 60.00 60.00 FiO2 60 04/15/21 23:59 Intake Total 1473 ml Output Total 485 ml Balance 988 ml Constitutional: other (Intubated, on mech vent, unable to communicate; I did not physically examine the patient to reduce exposure to COVID-19) Cardiovascular: irregularly irregular Results/Procedures: Labs Laboratory Tests 04/15/21 10:57: White Blood Count 20.1H, Red Blood Count 3.97L, Hemoglobin 12.4L, Hematocrit 37L , Mean Corpuscular Volume 94, Mean Corpuscular Hemoglobin 31, Mean Corpuscular Hemoglobin Concent 33, Red Cell Distribution Width 14.5, Platelet Count 284, Mean Platelet Volume 10.2, Prothrombin Time 15.3H, INR Comment 1.2, D-Dimer 4.31H 04/15/21 12:13: Glucometer 144H 04/15/21 18:38: Glucometer 164H 04/15/21 23:59: Glucometer 145H 04/16/21 04:10: White Blood Count 10.0, Red Blood Count 3.90L, Hemoglobin 12.0L, Hematocrit 37L, Mean Corpuscular Volume 95, Mean Corpuscular Hemoglobin 31, Mean Corpuscular Hemoglobin Concent 32, Red Cell Distribution Width 14.6H, Platelet Count 217, Mean Platelet Volume 9.9, Immature Granulocyte % (Auto) 1, Neutrophils (%) (Auto) 93H, Lymphocytes (%) (Auto) 3L, Monocytes (%) (Auto) 3, Eosinophils (%) (Auto) 0, Basophils (%) (Auto) 0, Neutrophils # (Auto) 9.3H, Lymphocytes # (Auto) 0.3L, Monocytes # (Auto) 0.3, Eosinophils # (Auto) 0.0, Basophils # (Auto) 0.0, Immature Granulocyte # (Auto) 0.1, Blood Gas Puncture Site RIGHT RADIAL, Blood Gas Patient Temperature 35.8, Arterial Blood pH 7.44H, Arterial Blood Partial Pressure CO2 36, Arterial Blood Partial Pressure O2 60L, Arterial Blood HCO3 24, Arterial Blood Total CO2 25.5, Arterial Blood Oxygen Saturation 92L, Arterial Blood Base Excess 0.4, Aldo Test YES-POS, Blood Gas Ventilator Setting YES, Blood Gas Inspired Oxygen 60%, Sodium Level 145, Potassium Level 3.8, Chloride Level 115H, Carbon Dioxide Level 22, Anion Gap 8, Blood Urea Nitrogen 27H, Creatinine 0.67, Estimat Glomerular Filtration Rate 116, BUN/Creatinine Ratio 40, Glucose Level 123H, Calcium Level 8.1L, Magnesium Level 2.6H Microbiology 04/13/21 Gram Stain - Final, Complete 04/13/21 Sputum Culture - Final, Complete Usual upper respiratory jack Procedures NAME: LYDIA AQUINO [facility] REC#: [id number] PT STATUS: ADM IN : 1945 PHYSICIAN: NNAMDI KRUSE MD ADMIT DATE: 04/10/21/ICU Signed Date of Exam:04/16/21 CHEST 1 VIEW, AP/PA ONLY INDICATION: Respiratory failure Portable AP view of chest is obtained with comparison made to study one day earlier. There has been mild overall worsening of extensive bilateral infiltrates which are primarily airspace disease in nature. No pneumothorax is identified. Endotracheal tube is in place with tip at the level of the thoracic inlet and nasogastric tube passes below the diaphragm. Lucency projecting over the upper abdomen could represent pneumoperitoneum IMPRESSION: Worsening extensive bilateral pulmonary infiltrates with apparent pneumoperitoneum. Clinical correlation is recommended. Dictated by: Dictated on workstation # [id number] Dict: 04/16/21727 Trans: 04/16/2132 CVB [id number] Interpreted by: VAL FAGAN MD Electronically signed by: VAL FAGAN MD 04/16/21 0732 A/P: Assessment: COVID-19 pneumonia progressing to resp failure and requiring mechanical ventilation A Fib of unknown duration (seen on admission on 04/11/21), ventricular rate is well-controlled Plan: * Hospitalist and ICU services are managing COVID-19 and pneumonia and worsening resp failure * Ventricular rate from A Fib continues to remain controlled * Continue anticoag for stroke prophylaxis * Monitor labs HORTENCIA STAFFORD Apr 16, 2021 08:34
[2021-04-16] MEDS: PANTOPRAZOLE 40 MG (PROTONIX) VIAL IV SCH ×2 (08:54→20:22)
--- NOTE | 2021-04-16 09:31 | Diagnostic Imaging Report ---
INDICATION: Free air COMPARISON: None. FINDINGS: Acute abdominal series demonstrates bilateral pulmonary infiltrates. There is an ET tube and an NG tube in position. There is a mild to moderate pneumoperitoneum seen inferior to the hemidiaphragms. Bowel gas pattern is nondistended. There is no significant constipation. IMPRESSION: 1. Bilateral pulmonary infiltrates. 2. Mild to moderate pneumoperitoneum. Attempts were made by Dr. Villanueva to contact Dr. Cayetano Hernandez and Dr. Maggie Hardin unsuccessfully. Critical Findings were conveyed to Dr. Hardin at 9:30 AM 04/16/2021/cb Dictated by: Dictated on workstation # [id number]
--- NOTE | 2021-04-16 10:55 | Progress Note - Cardiology ---
Cardiology SOAP Progress Note Subjective: Intubated and on mech vent Objective: I&O/Vital Signs 04/15/21 04/16/21 04/16/21 04/16/21 23:00 00:00 00:00 01:00 Pulse 65 75 58 Resp 25 24 28 B/P (MAP) 120/60 (80) 117/57 (77) 120/59 (79) Pulse Ox 93 91 93 93 O2 Delivery Mechanical Ventilator Mechanical Ventilator Mechanical Ventilator Mechanical Ventilator O2 Flow Rate 60.00 60.00 60.00 FiO2 60 04/16/21 04/16/21 04/16/21 04/16/21 01:00 02:00 02:43 03:00 Pulse 70 75 82 75 Resp 28 32 28 B/P (MAP) 93/49 (64) 111/50 (70) Pulse Ox 90 93 91 O2 Delivery Mechanical Ventilator Mechanical Ventilator O2 Flow Rate 60.00 60.00 FiO2 60 04/16/21 04/16/21 04/16/21 04/16/21 04:00 04:00 04:14 05:00 Temp 35.8 Pulse 78 80 Resp 29 28 B/P (MAP) 122/54 (76) 123/55 (77) Pulse Ox 92 91 91 O2 Delivery Mechanical Ventilator Mechanical Ventilator Mechanical Ventilator O2 Flow Rate 60.00 60.00 FiO2 60 04/16/21 04/16/21 04/16/21 04/16/21 06:00 06:50 06:59 07:00 Pulse 72 80 60 72 Resp 32 30 30 B/P (MAP) 118/52 (74) 120/62 (81) Pulse Ox 93 93 91 O2 Delivery Mechanical Ventilator Mechanical Ventilator O2 Flow Rate 60.00 60.00 FiO2 60 04/16/21 04/16/21 04/16/21 08:00 09:00 10:02 Pulse 73 77 71 Resp 30 32 30 B/P (MAP) 134/62 (86) 121/57 (78) Pulse Ox 94 89 93 O2 Delivery Mechanical Ventilator Mechanical Ventilator O2 Flow Rate 60.00 60.00 FiO2 60 04/16/21 00:00 Intake Total 1473 ml Output Total 485 ml Balance 988 ml Constitutional: other (Intubated, on mech vent, unable to communicate; I did not physically examine the patient to reduce exposure to COVID-19) Skin: No rash on exposed areas, No ulcerations on exposed areas Results/Procedures: Labs Laboratory Tests 04/15/21 10:57: White Blood Count 20.1H, Red Blood Count 3.97L, Hemoglobin 12.4L, Hematocrit 37L , Mean Corpuscular Volume 94, Mean Corpuscular Hemoglobin 31, Mean Corpuscular Hemoglobin Concent 33, Red Cell Distribution Width 14.5, Platelet Count 284, Mean Platelet Volume 10.2, Prothrombin Time 15.3H, INR Comment 1.2, D-Dimer 4.31H 04/15/21 12:13: Glucometer 144H 04/15/21 18:38: Glucometer 164H 04/15/21 23:59: Glucometer 145H 04/16/21 04:10: White Blood Count 10.0, Red Blood Count 3.90L, Hemoglobin 12.0L, Hematocrit 37L, Mean Corpuscular Volume 95, Mean Corpuscular Hemoglobin 31, Mean Corpuscular Hemoglobin Concent 32, Red Cell Distribution Width 14.6H, Platelet Count 217, Mean Platelet Volume 9.9, Immature Granulocyte % (Auto) 1, Neutrophils (%) (Auto) 93H, Lymphocytes (%) (Auto) 3L, Monocytes (%) (Auto) 3, Eosinophils (%) (Auto) 0, Basophils (%) (Auto) 0, Neutrophils # (Auto) 9.3H, Lymphocytes # (Auto) 0.3L, Monocytes # (Auto) 0.3, Eosinophils # (Auto) 0.0, Basophils # (Au to) 0.0, Immature Granulocyte # (Auto) 0.1, Blood Gas Puncture Site RIGHT RADIAL, Blood Gas Patient Temperature 35.8, Arterial Blood pH 7.44H, Arterial Blood Partial Pressure CO2 36, Arterial Blood Partial Pressure O2 60L, Arterial Blood HCO3 24, Arterial Blood Total CO2 25.5, Arterial Blood Oxygen Saturation 92L, Arterial Blood Base Excess 0.4, Aldo Test YES-POS, Blood Gas Ventilator Setting YES, Blood Gas Inspired Oxygen 60%, Sodium Level 145, Potassium Level 3.8, Chloride Level 115H, Carbon Dioxide Level 22, Anion Gap 8, Blood Urea Nit rogen 27H, Creatinine 0.67, Estimat Glomerular Filtration Rate 116, BUN/Creatinine Ratio 40, Glucose Level 123H, Calcium Level 8.1L, Magnesium Level 2.6H Microbiology 04/13/21 Gram Stain - Final, Complete 04/13/21 Sputum Culture - Final, Complete Usual upper respiratory jack A/P: Assessment: COVID-19 pneumonia progressing to resp failure and requiring mechanical v entilation A Fib of unknown duration (seen on admission on 04/11/21), ventricular rate is well-controlled Plan: * Hospitalist and ICU services are managing COVID-19 and pneumonia and worsening resp failure * Ventricular rate from A Fib continues to remain controlled * Continue anticoag for stroke prophylaxis * Monitor labs RONNIE RAMIREZ MD FACP FAC CCDS Apr 16, 2021 10:55
--- NOTE | 2021-04-16 11:35 | Physical Therapy Progress Note ---
Therapy Progress Note Patient currently sedated and intubated. PT will continue to follow patient status and initiate treatment when patient is medically stable and able to actively participate with skilled therapy. DELORIS HOLT PT Apr 16, 2021 11:35
--- NOTE | 2021-04-16 11:56 | Progress Note ---
BISHOP FRANCES MED STUDENT 04/16/21 1156: Subjective Date Seen by a Provider: Apr 16, 2021 Time Seen by a Provider: 07:00 Subjective/Events-last exam Remains sedated and intubated. Just on propofol for sedation. No pressors. VSS per bedside monitor. Review of Systems General: Other (unobtainable) HEENT: Other (unobtainable) Cardiovascular: Other (unobtainable) Gastrointestinal: Other (unobtainable) Genitourinary: Other (unobtainable) Musculoskeletal: other (unobtainable) Neurological: Other (unobtainable) Objective Exam Last Set of Vital Signs Vital Signs Date Time Temp Pulse Resp B/P (MAP) Pulse Ox O2 Delivery O2 Flow Rate FiO2 04/16/21 10:02 71 30 93 60 04/16/21 09:00 121/57 (78) Mechanical Ventilator 60.00 04/16/21 04:14 35.8 Capillary Refill : Less Than 3 Seconds I&O Intake and Output 04/16/21 00:00 Intake Total 1808 ml Output Total 1175 ml Balance 633 ml Intake Oral 75 ml IV Total 1000 ml Tube Feeding 358 ml Other 375 ml Output Urine Total 1175 ml General: Severe Distress, Other (Sedated. Intubated. Critically ill. ) HEENT: Atraumatic, Other (Endotracheal tube in place. OGT in place. Pupils 2mm bilaterally and brisk. ) Neck: Supple, No LAD Lungs: Other (Coarse througout. No wheezing or crackles. ) Heart: Regular Rate, Other (Afib rate controlled per beside monitor. Cap refill < 2seconds bilat hands. Radial pulses +2/4 bilat as well as dorsalis pedis pulses. Trace edema bilat ankles. ) Abdomen: Normal Bowel Sounds, Soft Extremities: No Clubbing, No Cyanosis, Normal Pulses, Other (L arm picc. R radial art line.) Skin: No Rashes, No Significant Lesion Neuro: Other (sedated. Withdraws to pain.) Psych/Mental Status: Other (sedated. ) Results Lab Laboratory Tests 04/15/21 12:13: Glucometer 144H 04/15/21 18:38: Glucometer 164H 04/15/21 23:59: Glucometer 145H 04/16/21 04:10: White Blood Count 10.0, Red Blood Count 3.90L, Hemoglobin 12.0L, Hematocrit 37L, Mean Corpuscular Volume 95, Mean Corpuscular Hemoglobin 31, Mean Corpuscular Hemoglobin Concent 32, Red Cell Distribution Width 14.6H, Platelet Count 217, Mean Platelet Volume 9.9, Immature Granulocyte % (Auto) 1, Neutrophils (%) (Auto) 93H, Lymphocytes (%) (Auto) 3L, Monocytes (%) (Auto) 3, Eosinophils (%) (Auto) 0, Basophils (%) (Auto) 0, Neutrophils # (Auto) 9.3H, Lymphocytes # (Auto) 0.3L, Monocytes # (Auto) 0.3, Eosinophils # (Auto) 0.0, Basophils # (Auto) 0.0, Immature Granulocyte # (Auto) 0.1, Blood Gas Puncture Site RIGHT RADIAL, Blood Gas Patient Temperature 35.8, Arterial Blood pH 7.44H, Arterial Blood Partial Pressure CO2 36, Arterial Blood Partial Pressure O2 60L, Arterial Blood HCO3 24, Arterial Blood Total CO2 25.5, Arterial Blood Oxygen Saturation 92L, Arterial Blood Base Excess 0.4, Aldo Test YES-POS, Blood Gas Ventilator Setting YES, Blood Gas Inspired Oxygen 60%, Sodium Level 145, Potassium Level 3.8, Chloride Level 115H, Carbon Dioxide Level 22, Anion Gap 8, Blood Urea Nitrogen 27H, Creatinine 0.67, Estimat Glomerular Filtration Rate 116, BUN/Creatinine Ratio 40, Glucose Level 123H, Calcium Level 8.1L, Magnesium Level 2.6H Microbiology 04/13/21 Gram Stain - Final, Complete 04/13/21 Sputum Culture - Final, Complete Usual upper respiratory jack Assessment/Plan Assessment/Plan Assess & Plan/Chief Complaint Acute hypoxic respiratory failure/ARDS -continue ventilatory management -TV 550. FIO2 60%. PEEP 8. RR 28. COVID-19 PNA -04-16-21 cxray shows worsening extensive bilat pulm infiltrates -Decadron Pneumoperitoneum -consult general surgery -order CT abdomen and pelvis today -abdomen soft and nondistended -acute abdominal series showed mild to moderate pneumoperitoneum -Hold tube feeds Shock -resolved -vasopressin and neosynephrine weaned off -Restart pressor to keep MAP>65 PRN -NS @ 100ml/hr Leukocytosis -WBC 10.0 today, trending down -likely steroid induced Anemia -hgb 12 today, stable -continue to monitor Suspected pneumomediastinum on CXR 04-14 -no palpable subq crepitus of neck/supraclavicular region -PEEP lowered on 04-14 -no evidence of worsening/increase in subQ emphysema today -continue to monitor Hypercoagulable state associated with COVID-19 -d dimer on 04-10 >20 -lovenox on hold currently Atrial fibrillation -eliquis held as intubated -lovenox held currently GI ppx -protonix MAGGIE SHIPMAN DO 04/17/21 0546: Subjective Subjective/Events-last exam Intubation remains Tachypnea noted Possible pneumoperitoneum but CT scan reveals none at that Objective Exam General: Other (Sedated and intubated) Lungs: Clear to Auscultation Heart: Regular Rate Assessment/Plan Assessment/Plan Assess & Plan/Chief Complaint CT scan to evaluate for pneumoperitoneum and mediastinum Monitor closely Critically ill Updated today where she is hospitalized at [facility] ICU Covid Supervisory-Addendum Brief Verification & Attestation Participated in pt care: history, MDM, physical Personally performed: exam, history, MDM, supervision of care Care discussed with: Medical Student Procedures: n/a Results interpretation: Verified all documentation Verification and Attestation of Medical Student E/M Service A medical student performed and documented this service in my presence. I reviewed and verified all information documented by the medical student and made modifications to such information, when appropriate. I personally performed the physical exam and medical decision making. Maggie Shipman, Apr 17, 2021,05:46 BISHOP FRANCES MED STUDENT Apr 16, 2021 11:56 MAGGIE SHIPMAN DO Apr 17, 2021 05:46
[2021-04-16] MEDS ORDERED: PIPERACILLIN/TAZOBACTAM 4.5 GM in NS (IVPB) 100 ML IV ONE (12:00)
--- NOTE | 2021-04-16 13:17 | Progress Note - Hospitalist ---
STEPHANIE MOLINA 04/16/21 1317: Subjective HPI/CC On Admission Date Seen by Provider: Apr 16, 2021 Time Seen by Provider: 10:45 Saud Boston is a 75 year old male with PMH HLD who presented with shortness of breath. He was reportedly diagnosed with COVID three weeks ago. He had been doing ok until a few days ago when he started getting short of breath. He has had fever and cough. He denies chest pain. He denies nausea and vomiting. He denies diarrhea. He would be ok with being on the ventilator if needed. When asked about code status, he says, "Just try for one round and then let me go. Subjective/Events-last exam Pt continues to be intubated and sedated. Hemoglobin continues to be stable. C hest Xray demonstrates pneumoperitoneum Current vent settings -TV 578 -RR 30 -FIO2 60 -PEEP 8 Objective Exam Vital Signs Vital Signs Date Time Temp Pulse Resp B/P (MAP) Pulse Ox O2 Delivery O2 Flow Rate FiO2 04/16/21 12:56 62 107/55 04/16/21 12:00 35.5 04/16/21 12:00 23 93 Mechanical Ventilator 60.00 04/16/21 10:02 60 Capillary Refill : Less Than 3 Seconds General Appearance: No Apparent Distress, Chronically ill, Thin Respiratory: Respiratory Distress Cardiovascular: No Edema, Normal Peripheral Pulses, Irregularly Irregular Gastrointestinal: Non Tender, Soft Results/Procedures Lab Laboratory Tests 04/16/21 04:10 Patient resulted labs reviewed. Imaging: Reviewed Imaging Report Assessment/Plan Assessment and Plan Assess & Plan/Chief Complaint Saud Boston is a 75 year old male who was admitted 04/10 for acute respiratory failure three weeks after diagnosis of COVID. In addition, patient is currently being treated for afib and HAYDE. Day 4 of intubation New onset pneumoperitoneum -Demonstrated on chest xray -Surgery consulted -Continue PPI Acute respiratory failure - stable COVID 19 Pneumonia -04/10: Pt admitted - originally requiring 6-8L NC. -Chest xray consistent with pna. Elevated D-dimer -04/13: Pt intubated Plan: -Zosyn started -Continue to monitor ABGs and vent settings -Continue dexamethasone, eliquis -Continues to require phenylephrine and vasopressin -Monitor labs and electrolytes Afib - chronic -Rates well controlled -Continue to keep Mg>2, K>4 -Continue Eliquis -Continue to monitor HAYDE - resolved -Managed with IV fluids Critical Care: Ventilator Management MAGGIE SHIPMAN DO 04/17/21 0547: Subjective Subjective/Events-last exam ntubation remains Tachypnea noted Possible pneumoperitoneum but CT scan reveals none at [place] Objective Exam General Appearance: No Apparent Distress, Chronically ill, Other (Intubated and sedated) Respiratory: Lungs Clear, Accessory Muscle Use Assessment/Plan Assessment and Plan Assess & Plan/Chief Complaint Critically ill Supportive care Vent management appreciated Prognosis guarded Supervisory-Addendum Brief Verification & Attestation Participated in pt care: history, MDM, physical Personally performed: exam, history, MDM, supervision of care Care discussed with: Medical Student Procedures: n/a Results interpretation: Verified all documentation Verification and Attestation of Medical Student E/M Service A medical student performed and documented this service in my presence. I reviewed and verified all information documented by the medical student and made modifications to such information, when appropriate. I personally performed the physical exam and medical decision making. Maggie Shipman, Apr 17, 2021,05:47 STEPHANIE MOLINA Apr 16, 2021 13:17 MAGGIE SHIPMAN DO Apr 17, 2021 05:47
[2021-04-16] MEDS ORDERED: NS 100 ML (IVPB) BAG IV ONE (13:45)
[2021-04-16] MEDS ORDERED: IOHEXOL 350 MG/ML 100 ML (OMNIPAQUE 350) VIAL IV ONE (13:45)
[2021-04-16] MEDS ORDERED: HOLD METFORMIN - RECEIVED CONTRAST 20 ML VIAL IV SCH (13:45)
--- NOTE | 2021-04-16 13:59 | Diagnostic Imaging Report ---
PROCEDURE: CT abdomen and pelvis with contrast. TECHNIQUE: Multiple contiguous axial images were obtained through the abdomen and pelvis after administration of intravenous contrast. Auto Exposure Controls were utilized during the CT exam to meet ALARA standards for radiation dose reduction. All CT scans use one or more of the following dose optimizing techniques: automated exposure control, MA and/or KvP adjustment based on patient size and exam type or iterative reconstruction. INDICATION: Pneumoperitoneum. Correlation is made with abdominal radiograph performed earlier the same day. Imaging through lung bases demonstrates small bilateral pleural effusions. There are extensive infiltrates in both lung bases as well. There is no evidence of pneumoperitoneum. The liver and gallbladder are unremarkable. The pancreas and spleen are unremarkable. No adrenal mass is detected. Kidneys are unremarkable. Aorta is heavily calcified. Bowel loops are normal caliber. No obstruction. No free fluid is seen. Bladder is decompressed by Trotter catheter. There is extensive artifact through the pelvis from bilateral hip prostheses. IMPRESSION: 1. Bilateral pleural effusions with bibasilar pulmonary infiltrates. 2. No evidence of pneumoperitoneum. No acute feature in the abdomen or pelvis is identified. Dictated by: Dictated on workstation # [id number]
[2021-04-16] MEDS: fentaNYL INJ 100 MCG/2 ML AMP IVP PRN (14:03)
--- NOTE | 2021-04-16 16:02 | Consultation - Surgery ---
History of Present Illness History of Present Illness Patient Consulted On(yair/time) 04/16/21 15:57 Time Seen by Provider: 14:52 History of Present Illness Surgery asked to consult regarding Pneumoperitoneum. HPI per IM: Saud Boston is a 75 year old male with PMH HLD who presented with shortness of breath. He was reportedly diagnosed with COVID three weeks ago. He had been doing ok until a few days ago when he started getting short of breath. He has had fever and cough. He denies chest pain. He denies nausea and vomiting. He denies diarrhea. He would be ok with being on the ventilator if needed. When asked about code status, he says, "Just try for one round and then let me go." Pt is intubated and sedated, secondary to Covid-19 Respiratory failure. Most information obtained from chart. His acute abdominal series this am was read as pneumoperitoneum under both helena-diaphragms. CXR from this am suggested possible pneumoperitoneum and therefore an AAS was ordered. Nursing stated his abdomen is soft and has been soft. Allergies and Home Medications Allergies Coded Allergies: No Known Drug Allergies (Unverified , 03/11/11) Patient Home Medication List Home Medication List Reviewed: Yes Atorvastatin Calcium (Atorvastatin Calcium) 10 Mg Tablet, 10 MG PO DAILY, (Reported) Entered as Reported by: MAYA VIVAS on 04/13/21 1314 Last Action: Reviewed Discontinued Medications Ascorbic Acid (Vitamin C) 250 Mg Tab, 500 MG PO DAILY, (Reported) Discontinued Reason: No Longer Taking Entered as Reported by: ABEBE RIVAS on 03/11/11816 Last Action: Discontinued Aspirin (Aspirin Ec 81 Mg) 81 Mg Tabec, 81 MG PO DAILY, (Reported) Discontinued Reason: No Longer Taking Entered as Reported by: ABEBE RIVAS on 03/11/11816 Last Action: Discontinued Atorvastatin Calcium (Lipitor 10 Mg) 10 Mg Tablet, 1 EACH PO HS, (Reported) Discontinued Reason: No Longer Taking Entered as Reported by: ABEBE RIVAS on 03/11/11816 Last Action: Discontinued Cephalexin (Cephalexin) 500 Mg Capsule, 500 MG PO TID Discontinued Reason: No Longer Taking Prescribed by: LYNN ANGULO on 10/25/202020 Last Action: Discontinued Cholecalciferol (Vitamin D) 1,000 Unit Tablet, 1,000 UNIT PO DAILY, (Reported) Discontinued Reason: No Longer Taking Entered as Reported by: ABEBE RIVAS on 03/11/11816 Last Action: Discontinued Multivitamins (Multiple Vitamin) 1 Tab Tablet, 1 TAB PO DAILY, (Reported) Discontinued Reason: No Longer Taking Entered as Reported by: ABEBE RIVAS on 03/11/11816 Last Action: Discontinued [place] 3 Polyunsat Fatty Acids (Fish Oil) 1,000 Mg Cap, 1,000 MG PO BID, (Rep orted) Discontinued Reason: No Longer Taking Entered as Reported by: ABEBE RIVAS on 03/11/11816 Last Action: Discontinued Past Yzmynbc-Thkaus-Xwkkco Hx Patient Social History Smoking Status: Former Smoker Recent Hopitalizations: No Alcohol Use?: Yes Have you traveled recently?: No Seasonal Allergies Seasonal Allergies: No Surgeries History of Surgeries: No Respiratory History of Respiratory Disorde: No Cardiovascular History of Cardiac Disorders: No Cardiac Disorders: High Cholesterol Neurological History of Neurological Disord: No Reproductive System Hx Reproductive Disorders: No Sexually Transmitted Disease: No Genitourinary History of Genitourinary Disor: No Gastrointestinal History of Gastrointestinal Di: No Musculoskeletal History of Musculoskeletal Dis: Yes Musculoskeletal Disorders: Arthritis Endocrine History of Endocrine Disorders: No Cancer History of Cancer: No Psychosocial History of Psychiatric Problem: No Integumentary History of Skin or Integumenta: No Blood Transfusions History of Blood Disorders: No Reviewed Nursing Assessment Reviewed/Agree w Nursing PMH: Yes Family Medical History Significant Family History: No Pertinent Family Hx (unable to obtain, pt intubated) Review of Systems-General ROS-Unable to Obtain: pt intubated and sedated Physical Exam-General Problems Physical Exam Vital Signs Vital Signs - First Documented 04/10/21 04/10/21 14:34 23:11 Temp 37.0 Pulse 106 Resp 15 B/P (MAP) 107/68 (81) Pulse Ox 89 O2 Delivery Nasal Cannula O2 Flow Rate 6.00 FiO2 75 Capillary Refill : Less Than 3 Seconds General Appearance: other (intubated and sedated) Eyes: Bilateral Eye PERRL HEENT: other (ET tube in place) Respiratory: decreased breath sounds, crackles, wheezing Cardiovascular: no murmur, tachycardia, irregularly irregular Gastrointestinal: soft, no organomegaly; No distended Extremities: no pedal edema, normal capillary refill Neurologic/Psychiatric: other (intubated and sedated) Skin: normal color, warm/dry Data Review Labs Laboratory Tests 04/15/21 18:38: Glucometer 164H 04/15/21 23:59: Glucometer 145H 04/16/21 04:10: White Blood Count 10.0, Red Blood Count 3.90L, Hemoglobin 12.0L, Hematocrit 37L, Mean Corpuscular Volume 95, Mean Corpuscular Hemoglobin 31, Mean Corpuscular Hemoglobin Concent 32, Red Cell Distribution Width 14.6H, Platelet Count 217, Mean Platelet Volume 9.9, Immature Granulocyte % (Auto) 1, Neutrophils (%) (Auto) 93H, Lymphocytes (%) (Auto) 3L, Monocytes (%) (Auto) 3, Eosinophils (%) (Auto) 0, Basophils (%) (Auto) 0, Neutrophils # (Auto) 9.3H, Lymphocytes # (Auto) 0.3L, Monocytes # (Auto) 0.3, Eosinophils # (Auto) 0.0, Basophils # (Auto) 0.0, Immature Granulocyte # (Auto) 0.1, Blood Gas Puncture Site RIGHT RADIAL, Blood Gas Patient Temperature 35.8, Arterial Blood pH 7.44H, Arterial Blood Partial Pressure CO2 36, Arterial Blood Partial Pressure O2 60L, Arterial Blood HCO3 24, Arterial Blood Total CO2 25.5, Arterial Blood Oxygen Saturation 92L, Arterial Blood Base Excess 0.4, Aldo Test YES-POS, Blood Gas Ventilator Setting YES, Blood Gas Inspired Oxygen 60%, Sodium Level 145, Potassium Level 3.8, Chloride Level 115H, Carbon Dioxide Level 22, Anion Gap 8, Blood Urea Nitrogen 27H, Creatinine 0.67, Estimat Glomerular Filtration Rate 116, BUN/Creatinine Ratio 40, Glucose Level 123H, Calcium Level 8.1L, Magnesium Level 2.6H 04/16/21 11:57: Glucometer 116H Microbiology 04/13/21 Gram Stain - Final, Complete 04/13/21 Sputum Culture - Final, Complete Usual upper respiratory jack Radiology Date of Exam:04/16/21 CT ABDOMEN/PELVIS W PROCEDURE: CT abdomen and pelvis with contrast. TECHNIQUE: Multiple contiguous axial images were obtained through the abdomen and pelvis after administration of intravenous contrast. Auto Exposure Controls were utilized during the CT exam to meet ALARA standards for radiation dose reduction. All CT scans use one or more of the following dose optimizing techniques: automated exposure control, MA and/or KvP adjustment based on patient size and exam type or iterative reconstruction. INDICATION: Pneumoperitoneum. Correlation is made with abdominal radiograph performed earlier the same day. Imaging through lung bases demonstrates small bilateral pleural effusions. There are extensive infiltrates in both lung bases as well. There is no evidence of pneumoperitoneum. The liver and gallbladder are unremarkable. The pancreas and spleen are unremarkable. No adrenal mass is detected. Kidneys are unremarkable. Aorta is heavily calcified. Bowel loops are normal caliber. No obstruction. No free fluid is seen. Bladder is decompressed by Trotter catheter. There is extensive artifact through the pelvis from bilateral hip prostheses. IMPRESSION: 1. Bilateral pleural effusions with bibasilar pulmonary infiltrates. 2. No evidence of pneumoperitoneum. No acute feature in the abdomen or pelvis is identified. Dictated on workstation # [id number] Dict: 04/16/21 1349 Trans: 04/16/21 1358 CVB [id number] Interpreted by: SAUD REBOLLAR MD Electronically signed by: Assessment/Plan Assessment/Plan Assessment/Plan R/O Pneumoperitoneum - I viewed CT myself and then discussed with Radiologist, no free air seen. Most likely the Abdominal xray was bowel under the diaphragm confused for free air. I will sign off and can re-consult if needed. Acute hypoxic respiratory failure/ARDS -continue ventilatory management -TV 550. FIO2 60%. PEEP 8. RR 28. COVID-19 PNA -04-16-21 cxray shows worsening extensive bilat pulm infiltrates -Decadron Shock -resolved -vasopressin and neosynephrine weaned off -Restart pressor to keep MAP>65 PRN -NS @ 100ml/hr Leukocytosis - resolved -WBC 10.0 today, trending down -likely steroid induced Anemia -hgb 12 today, stable -continue to monitor Hypercoagulable state associated with COVID-19 -d dimer on - >20 -lovenox on hold currently Atrial fibrillation -eliquis held as intubated -lovenox held currently GI ppx -protonix KAROL ZELAYA DO Apr 16, 2021 16:02
[2021-04-16] MEDS: PIPERACILLIN/TAZOBACTAM (BULK) 4.5 GM in NS (IVPB) 100 ML IV SCH (18:26)
[2021-04-17] VITALS (30 sets, daily range): BP systolic 84–134; BP diastolic 55–69
[2021-04-17] MEDS: inSUlin ASPART (NovoLOG) 1 UNIT/0.01 ML (CHARGE PER UNIT) SQ SCH ×4 (01:47→18:04)
[2021-04-17] MEDS: 1/2 NS IV SOLUTION 1,000 ML IV SCH ×3 (01:48→15:59)
[2021-04-17] MEDS: RT-ALBUTEROL HFA 8.5 GM INHALER IH SCH ×6 (02:15→22:19)
[2021-04-17] MEDS: PIPERACILLIN/TAZOBACTAM (BULK) 4.5 GM in NS (IVPB) 100 ML IV SCH ×3 (02:23→18:04)
[2021-04-17 02:49] LABS: BASOPHILS % (AUTO) 0 % (0-10); EOSINOPHILS % (AUTO) 0 % (0-10); HEMATOCRIT 36 % (40-54); HEMOGLOBIN 11.8 g/dL (13.3-17.7); LYMPHOCYTES # (AUTO) 0.3 10^3/uL (1.0-4.0); LYMPHOCYTES % (AUTO) 4 % (12-44); MEAN CORPUSCULAR HEMOGLOBIN 31 pg (25-34); MEAN CORPUSCULAR HGB CONC 33 g/dL (32-36); MEAN CORPUSCULAR VOLUME 95 fL (80-99); MONOCYTES # (AUTO) 0.4 10^3/uL (0.0-1.0); MONOCYTES % (AUTO) 4 % (0-12); NEUTROPHILS # (AUTO) 7.3 10^3/uL (1.8-7.8); NEUTROPHILS % (AUTO) 91 % (42-75); PLATELET COUNT 196 10^3/uL (130-400)
[2021-04-17 02:53] LABS: ABG BASE EXCESS 2.1 MMOL/L (-2.5-2.5); ABG OXYGEN SATURATION 94 % (94-100); ABG PCO2 33 MMHG (35-45); ABG PO2 59 MMHG (79-93); ABG TCO2 26.6 MMOL/L (21.0-31.0)
[2021-04-17 02:55] LABS: ALLENS TEST ARTLINE; INSPIRED O2 70%; PATIENT TEMP 35.2; VENTILATOR YES
[2021-04-17 02:58] LABS: POTASSIUM 4.1 MMOL/L (3.6-5.0)
[2021-04-17 03:00] LABS: CALCIUM 7.7 MG/DL (8.5-10.1)
[2021-04-17 03:04] LABS: CREATININE SERUM 0.62 MG/DL (0.60-1.30)
[2021-04-17 03:06] LABS: MAGNESIUM 2.4 MG/DL (1.6-2.4)
[2021-04-17] MEDS: MAGNESIUM 1 GM/100 ML IVPB 100 ML IV SCH (04:20)
[2021-04-17] MEDS: POTASSIUM CL 10MEQ/50ML IVPB 50 ML IV SCH (04:20)
[2021-04-17] MEDS: KCL 20 MEQ TAB (K-DUR) PO SCH (04:20)
[2021-04-17] MEDS: PROPOFOL DRIP (ICU) 100 ML IV SCH ×5 (06:06→18:06)
[2021-04-17] MEDS: RT--FLUTICASONE/SALMETEROL 113-14 (AIRDUO RespiCLICK) IH SCH (06:56)
--- NOTE | 2021-04-17 07:32 | Occ Therapy Progress Note ---
Therapy Progress Note Pt is currently intubated. OT will continue to monitor pt status and initiate treatment when pt is medically stable and able to actively participate in skilled therapy. ADAM FISHER OT Apr 17, 2021 07:32
[2021-04-17] MEDS: PANTOPRAZOLE 40 MG (PROTONIX) VIAL IV SCH ×2 (08:19→21:03)
--- NOTE | 2021-04-17 08:26 | Progress Note - Hospitalist ---
Subjective HPI/CC On Admission Date Seen by Provider: Apr 17, 2021 Time Seen by Provider: 13:00 Saud Boston is a 75 year old male with PMH HLD who presented with shortness of breath. He was reportedly diagnosed with COVID three weeks ago. He had been doing ok until a few days ago when he started getting short of breath. He has h ad fever and cough. He denies chest pain. He denies nausea and vomiting. He denies diarrhea. He would be ok with being on the ventilator if needed. When asked about code status, he says, "Just try for one round and then let me go. Subjective/Events-last exam Patient still intubated Tachypnea continues Appears to be in discomfort at times so we'll start fentanyl drip Prognosis guarded Objective Exam Vital Signs Vital Signs Date Time Temp Pulse Resp B/P (MAP) Pulse Ox O2 Delivery O2 Flow Rate FiO2 04/18/21 06:54 56 26 97 90 04/18/21 06:00 118/71 (87) Mechanical Ventilator 90.00 04/18/21 04:00 36.6 Capillary Refill : Less Than 3 Seconds General Appearance: No Apparent Distress, WD/WN, Chronically ill, Other (Sedated and intubated) Respiratory: No Accessory Muscle Use, No Respiratory Distress, Decreased Breath Sounds Cardiovascular: Regular Rate, Rhythm Results/Procedures Lab Laboratory Tests 04/18/21 03:49 Patient resulted labs reviewed. Imaging: Reviewed Imaging Report Assessment/Plan Assessment and Plan Assess & Plan/Chief Complaint Assessment: Acute hypoxic respiratory failure due to COVID-19 pneumonia ventilator dependent Plan: Supportive care Critically ill Vent management appreciated Prognosis guarded Critical Care Ventilator Management COTY SHIPMAN DO Apr 17, 2021 08:26
[2021-04-17] MEDS: fentaNYL INJ 100 MCG/2 ML AMP IVP PRN (08:35)
--- NOTE | 2021-04-17 10:15 | Tele-ICU Progress Note ---
Subjective Date Seen by a Provider: Apr 17, 2021 Time Seen by a Provider: 09:45 Subjective/Events-last exam This virtual visit was conducted using real time audio/video. Thank you for asking us to see this patient for respiratory insufficiency and distress due to Covid pna. HPC: Recent events: FiO2 increased to 70%, CXR w worsening infilts. ROS: Sedated on vent. PE: VSS O2 sat 93 % on 70%/+8. HEENT: No obvious masses, adenopathy or JVD. Chest: Coarse and decreased. CV: RRR S1 S2 No murmur or added sounds. Abd: Non-tender. Bowel sounds Y. : Unremarkable. Trotter Y. CLINICAL STAFF ANESTHESIOLOGIST: No obvious focal findings. Extremities: 1+ edema. Capillary refill < 3 seconds. Skin: unremarkable. Results: Elevated Na 149, BUN 25. Decreasing D-Dimer 4.31, Hb 11.8. ABG 7.5/33/59 A/P: Respiratory insufficiency/distress: cont present vent settings. Available chart/ vitals / labs /images reviewed. Video assessment done using teleICU camera, rest of exam as per RN. Monitor for increasing oxygenation needs. Critical Care: critically ill patient. Vasopressin and Phenylephrine held since 04/15. Cont Dex., Zosyn. Resume Lovenox if Hospitalist agrees. Discussed with ANGEL Lam. Asked RN to reach out to eICU if any questions or concerns later. Time spent with patient/coordination of care with other health professionals (mins) 15: Sepsis Event Evaluation Height, Weight, BMI Height: '" Weight: lbs. oz. kg; 21.43 BMI Method: Exam Exam Patient acknowledged, consented, and participated in this virtual visit which was conducted using real time audio/video Vital Signs Date Time Temp Pulse Resp B/P (MAP) Pulse Ox O2 Delivery O2 Flow Rate FiO2 04/17/21 08:25 35.0 04/17/21 08:20 72 122/51 04/17/21 08:20 72 122/61 04/17/21 08:00 73 129/67 (87) 94 Mechanical Ventilator 70.00 04/17/21 07:00 71 04/17/21 07:00 65 120/65 (83) 91 Mechanical Ventilator 70.00 04/17/21 06:57 60 29 91 70 04/17/21 06:07 66 119/62 04/17/21 06:06 66 119/62 04/17/21 06:00 65 112/66 (81) 90 Mechanical Ventilator 70.00 04/17/21 05:00 66 119/62 (81) 91 Mechanical Ventilator 70.00 04/17/21 04:00 58 119/66 (83) 92 Mechanical Ventilator 70.00 04/17/21 04:00 92 Mechanical Ventilator 70 04/17/21 04:00 35.2 04/17/21 03:00 61 112/65 (81) 91 Mechanical Ventilator 70.00 04/17/21 02:15 73 28 91 70 04/17/21 02:00 64 109/57 (74) 91 Mechanical Ventilator 70.00 04/17/21 01:00 64 109/59 (76) 91 Mechanical Ventilator 70.00 04/17/21 01:00 64 04/17/21 00:00 92 Mechanical Ventilator 70 04/17/21 00:00 71 23 105/60 (75) 92 Mechanical Ventilator 70.00 04/16/21 23:44 70 97/58 04/16/21 23:44 35.9 Mechanical Ventilator 70.00 04/16/21 23:43 70 97/58 04/16/21 23:00 70 28 97/58 (71) 93 Mechanical Ventilator 70.00 04/16/21 22:00 62 24 109/61 (77) 91 Mechanical Ventilator 70.00 04/16/21 21:46 65 29 91 70 04/16/21 21:00 74 25 125/59 (81) 92 Mechanical Ventilator 70.00 04/16/21 20:00 82 28 124/57 (79) 93 Mechanical Ventilator 70.00 04/16/21 20:00 92 Mechanical Ventilator 60 04/16/21 19:39 35.4 04/16/21 19:00 70 04/16/21 19:00 75 27 113/54 (73) 95 Mechanical Ventilator 70.00 04/16/21 18:34 76 28 92 70 04/16/21 18:17 59 106/56 04/16/21 18:16 59 100/59 04/16/21 18:00 63 48 96/54 (68) 92 Mechanical Ventilator 60.00 04/16/21 17:00 61 28 99/56 (70) 93 Mechanical Ventilator 60.00 9/10/21 16:00 70 27 109/60 (76) 92 Mechanical Ventilator 60.00 04/16/21 16:00 93 Mechanical Ventilator 60 04/16/21 16:00 35.7 04/16/21 15:00 69 24 113/59 (77) 89 Mechanical Ventilator 60.00 04/16/21 14:00 101 29 114/58 (76) 90 Mechanical Ventilator 60.00 04/16/21 13:51 96 33 90 65 04/16/21 13:00 70 28 122/59 (80) 92 Mechanical Ventilator 60.00 04/16/21 12:56 62 107/55 04/16/21 12:55 69 107/55 04/16/21 12:48 67 04/16/21 12:00 93 Mechanical Ventilator 60 04/16/21 12:00 35.5 04/16/21 12:00 62 23 104/54 (71) 93 Mechanical Ventilator 60.00 04/16/21 11:00 66 27 99/53 (68) 93 Mechanical Ventilator 60.00 I & O 04/17/21 07:00 Intake Total 1340 ml Output Total 3025 ml Balance -1685 ml Height & Weight Height: '" Weight: lbs. oz. kg; 21.43 BMI Method: General Appearance: No Apparent Distress, Chronically ill, Other (Intubated and sedated) HEENT: PERRL/EOMI, Pharynx Normal Respiratory: Lungs Clear, Accessory Muscle Use Cardiovascular: No Edema, Normal Peripheral Pulses, Irregularly Irregular Capillary Refill: Less Than 3 Seconds Peripheral Pulses: 1+ Dorsalis Pedis (R), 1+ Left Dors-Pedis (L) (see free text) Gastrointestinal: soft, no organomegaly Extremity: Normal Capillary Refill Neurologic/Psychiatric: Alert, Oriented x3 Skin: Normal Color, Warm/Dry Results Lab Laboratory Tests 04/15/21 10:57 04/16/21 04:10 04/17/21 02:40 Assessment/Plan Assessment/Plan See free text. Critical Care: Ventilator Management CARL CABRALES MD Apr 17, 2021 10:15
--- NOTE | 2021-04-17 10:34 | Cardiology Progress Note ---
Progress Note-Cardiology Events since last exam Date Seen by Provider: Apr 17, 2021 Time Seen by Provider: 10:29 Events since last exam We are seeing the patient due to atrial fibrillation. I did not actually see the patient due to his Covid status. I spoke to his nurse outside his room. Yesterday he had a CT scan and had more severe hypoxia following the procedure. He remains intubated and sedated. He is not on any vasopressor medication. He is receiving tube feeds. Certain portions of this document may have been dictated utilizing voice recognition technology. Inherent to this technology, typographical and grammatical errors may exist. As much as I am diligent to identify and correct these mistakes, some errors may remain in the document. Vitals Last set of Vitals Signs Vital Signs 04/17/21 04/17/21 04/17/21 08:25 10:00 10:17 Temp 35.0 Pulse 90 Resp 28 B/P (MAP) 114/62 (79) Pulse Ox 90 O2 Delivery Mechanical Ventilator O2 Flow Rate 70.00 FiO2 70 Labs Labs Laboratory Tests 04/17/21 02:40 Exam Vital Signs Vital Signs Date Time Temp Pulse Resp B/P (MAP) Pulse Ox O2 Delivery O2 Flow Rate FiO2 04/17/21 10:17 90 28 90 70 04/17/21 10:00 114/62 (79) Mechanical Ventilator 70.00 04/17/21 08:25 35.0 Physical Exam I did not examine the patient due to his Covid status. Labs Laboratory Tests Test 04/16/21 11:57 04/16/21 17:47 04/16/21 23:40 04/17/21 02:40 Range/Units Glucometer 116 H 108 100 70-110 MG/DL White Blood Count 8.0 4.3-11.0 10^3/uL Red Blood Count 3.82 L 4.30-5.52 10^6/uL Hemoglobin 11.8 L 13.3-17.7 g/dL Hematocrit 36 L 40-54 % Mean Corpuscular Volume 95 80-99 fL Mean Corpuscular Hemoglobin 31 25-34 pg Mean Corpuscular Hemoglobin Concent 33 32-36 g/dL Red Cell Distribution Width 14.7 H 10.0-14.5 % Platelet Count 196 130-400 10^3/uL Mean Platelet Volume 10.0 9.0-12.2 fL Immature Granulocyte % (Auto) 1 % Neutrophils (%) (Auto) 91 H 42-75 % Lymphocytes (%) (Auto) 4 L 12-44 % Monocytes (%) (Auto) 4 0-12 % Eosinophils (%) (Auto) 0 0-10 % Basophils (%) (Auto) 0 0-10 % Neutrophils # (Auto) 7.3 1.8-7.8 10^3/uL Lymphocytes # (Auto) 0.3 L 1.0-4.0 10^3/uL Monocytes # (Auto) 0.4 0.0-1.0 10^3/uL Eosinophils # (Auto) 0.0 0.0-0.3 10^3/uL Basophils # (Auto) 0.0 0.0-0.1 10^3/uL Immature Granulocyte # (Auto) 0.1 0.0-0.1 10^3/uL Blood Gas Puncture Site ARTLINE Blood Gas Patient Temperature 35.2 Arterial Blood pH 7.50 H 7.37-7.43 Arterial Blood Partial Pressure CO2 33 L 35-45 MMHG Arterial Blood Partial Pressure O2 59 L 79-93 MMHG Arterial Blood HCO3 26 23-27 MMOL/L Arterial Blood Total CO2 26.6 21.0-31.0 MMOL/L Arterial Blood Oxygen Saturation 94 94-100 % Arterial Blood Base Excess 2.1 -2.5-2.5 MMOL/L Aldo Test ARTLINE Blood Gas Ventilator Setting YES Blood Gas Inspired Oxygen 70% Sodium Level 149 H 135-145 MMOL/L Potassium Level 4.1 3.6-5.0 MMOL/L Chloride Level 115 H 98-107 MMOL/L Carbon Dioxide Level 23 21-32 MMOL/L Anion Gap 11 5-14 MMOL/L Blood Urea Nitrogen 25 H 7-18 MG/DL Creatinine 0.62 0.60-1.30 MG/DL Estimat Glomerular Filtration Rate 127 BUN/Creatinine Ratio 40 Glucose Level 95 70-105 MG/DL Calcium Level 7.7 L 8.5-10.1 MG/DL Magnesium Level 2.4 1.6-2.4 MG/DL Triglycerides Level 171 H <150 MG/DL Diagnosis/Problems Diagnosis/Problems (1) Persistent atrial fibrillation Assessment & Plan: He remains in atrial fibrillation. Exact duration unknown. He had been on enoxaparin but this was held due to possible pneumoperitoneum. The CT scan did not show evidence of pneumoperitoneum and as such, there is no plan for surgery. I would recommend that we start him on oral apixaban. His heart rates are controlled on no AV shimon blocking agents. If he recovers from the Covid infection, he will need some additional noninvasive cardiac testing. (2) Mixed hyperlipidemia Assessment & Plan: He had been on atorvastatin at home. There is some data demonstrating that statin medications given during active Covid infection may actually improve outcomes. I will restart his atorvastatin. (3) HAYDE (acute kidney injury) Status: Acute Assessment & Plan: He had acute kidney injury at the time of admission. This has improved. There is no indication to adjust the dose of apixaban. (4) Acute respiratory failure due to COVID-19 Status: Acute Assessment & Plan: This is being managed by the hospitalist. MARTÍNEZ LEMON JR, MD Apr 17, 2021 10:34
[2021-04-17] MEDS: fentaNYL DRIP PRE-MIX 250 ML IV SCH (12:50)
[2021-04-17] MEDS: VASOPRESSIN INJECTION 20 UNIT in NS (IVPB) 100 ML IV SCH (15:20)
[2021-04-17] MEDS ORDERED: CISATRACURIUM 2MG/ML (NIMBEX) 10ML VIAL IV ONE (15:30)
[2021-04-17] MEDS: CISATRACURIUM DRIP 250 ML IV SCH ×3 (15:53→22:38)
[2021-04-17] MEDS: PHENYLEPHRINE DOUBLE STRENGTH 20MG/ 250 ML IV SCH ×2 (21:00)
[2021-04-17] MEDS: AtorvaSTATin TABLET 10 MG TABLET PO SCH (21:03)
[2021-04-17] MEDS: APIXABAN 5 MG (ELIQUIS) TABLET PO SCH (21:03)
[2021-04-18] VITALS (30 sets, daily range): BP systolic 89–135; BP diastolic 55–77
[2021-04-18] MEDS: inSUlin ASPART (NovoLOG) 1 UNIT/0.01 ML (CHARGE PER UNIT) SQ SCH ×5 (00:17→23:30)
[2021-04-18] MEDS: 1/2 NS IV SOLUTION 1,000 ML IV SCH ×2 (01:46→15:42)
[2021-04-18] MEDS: PHENYLEPHRINE DOUBLE STRENGTH 20MG/ 250 ML IV SCH ×6 (01:49→09:42)
[2021-04-18] MEDS: VASOPRESSIN INJECTION 20 UNIT in NS (IVPB) 100 ML IV SCH ×3 (01:49→23:17)
[2021-04-18] MEDS: PROPOFOL DRIP (ICU) 100 ML IV SCH ×6 (01:51→18:26)
[2021-04-18] MEDS: PIPERACILLIN/TAZOBACTAM (BULK) 4.5 GM in NS (IVPB) 100 ML IV SCH ×3 (01:55→16:54)
[2021-04-18] MEDS: RT-ALBUTEROL HFA 8.5 GM INHALER IH SCH ×6 (02:18→21:58)
[2021-04-18] MEDS: CISATRACURIUM DRIP 250 ML IV SCH ×3 (03:34→22:41)
[2021-04-18 04:00] LABS: ABG BASE EXCESS -0.7 MMOL/L (-2.5-2.5); ABG OXYGEN SATURATION 96 % (94-100); ABG PCO2 40 MMHG (35-45); ABG PH 7.39 (7.37-7.43); ABG PO2 88 MMHG (79-93); ABG TCO2 24.9 MMOL/L (21.0-31.0)
[2021-04-18 04:01] LABS: ALLENS TEST ARTLINE; BASOPHILS % (AUTO) 0 % (0-10); EOSINOPHILS # (AUTO) 0.2 10^3/uL (0.0-0.3); EOSINOPHILS % (AUTO) 1 % (0-10); HEMATOCRIT 39 % (40-54); HEMOGLOBIN 12.5 g/dL (13.3-17.7); INSPIRED O2 90%; LYMPHOCYTES # (AUTO) 0.5 10^3/uL (1.0-4.0); LYMPHOCYTES % (AUTO) 4 % (12-44); MEAN CORPUSCULAR HEMOGLOBIN 31 pg (25-34); MEAN CORPUSCULAR HGB CONC 32 g/dL (32-36); MEAN CORPUSCULAR VOLUME 96 fL (80-99); MEAN PLATELET VOLUME 10.5 fL (9.0-12.2); MONOCYTES # (AUTO) 0.6 10^3/uL (0.0-1.0); MONOCYTES % (AUTO) 6 % (0-12); NEUTROPHILS # (AUTO) 9.8 10^3/uL (1.8-7.8); NEUTROPHILS % (AUTO) 87 % (42-75); PLATELET COUNT 208 10^3/uL (130-400); VENTILATOR YES; WHITE BLOOD COUNT 11.3 10^3/uL (4.3-11.0)
[2021-04-18 04:02] LABS: PATIENT TEMP 36.6
[2021-04-18 04:24] LABS: POTASSIUM 4.3 MMOL/L (3.6-5.0)
[2021-04-18 04:25] LABS: CALCIUM 7.3 MG/DL (8.5-10.1)
[2021-04-18 04:29] LABS: CREATININE SERUM 0.67 MG/DL (0.60-1.30)
[2021-04-18 04:31] LABS: MAGNESIUM 2.4 MG/DL (1.6-2.4)
[2021-04-18] MEDS: POTASSIUM CL 10MEQ/50ML IVPB 50 ML IV SCH (04:35)
[2021-04-18] MEDS: KCL 20 MEQ TAB (K-DUR) PO SCH (04:35)
[2021-04-18] MEDS: MAGNESIUM 1 GM/100 ML IVPB 100 ML IV SCH (04:35)
--- NOTE | 2021-04-18 08:02 | Progress Note - Hospitalist ---
Subjective HPI/CC On Admission Date Seen by Provider: Apr 18, 2021 Time Seen by Provider: 11:30 Saud Boston is a 75 year old male with PMH HLD who presented with shortness of breath. He was reportedly diagnosed with COVID three weeks ago. He had been doing ok until a few days ago when he started getting short of breath. He has h ad fever and cough. He denies chest pain. He denies nausea and vomiting. He denies diarrhea. He would be ok with being on the ventilator if needed. When asked about code status, he says, "Just try for one round and then let me go. Subjective/Events-last exam Patient still intubated No significant changes per nurse PEEP is at 16 and FiO2 of 70% Fentanyl drip has decreased respiratory rate to 26 Bradycardia noted Objective Exam Vital Signs Vital Signs Date Time Temp Pulse Resp B/P (MAP) Pulse Ox O2 Delivery O2 Flow Rate FiO2 04/18/21 20:00 36.0 04/18/21 20:00 94 Mechanical Ventilator 70 04/18/21 18:36 74 27 04/18/21 18:26 102/60 04/18/21 18:00 90.00 Capillary Refill : Less Than 3 Seconds General Appearance: No Apparent Distress, WD/WN, Chronically ill, Other (Sedated and intubated) Respiratory: No Accessory Muscle Use, No Respiratory Distress, Decreased Breath Sounds Results/Procedures Lab Laboratory Tests 04/18/21 03:49 Patient resulted labs reviewed. Imaging: Reviewed Imaging Report Assessment/Plan Assessment and Plan Assess & Plan/Chief Complaint Assessment: Acute hypoxic respiratory failure due to COVID-19 pneumonia ventilator dependent Plan: Supportive care Critically ill Vent management appreciated Prognosis guarded 04/18/2021: Supportive care Prognosis guarded Critical Care Ventilator Management COTY SHIPMAN DO Apr 18, 2021 08:02
[2021-04-18] MEDS: PANTOPRAZOLE 40 MG (PROTONIX) VIAL IV SCH ×2 (08:14→20:38)
[2021-04-18] MEDS: APIXABAN 5 MG (ELIQUIS) TABLET PO SCH ×2 (08:15→20:38)
--- NOTE | 2021-04-18 08:48 | Tele-ICU Progress Note ---
Subjective Date Seen by a Provider: Apr 18, 2021 Time Seen by a Provider: 07:35 Subjective/Events-last exam This virtual visit was conducted using real time audio/video. Thank you for asking us to see this patient for respiratory insufficiency and distress. HPC: Recent events: none, still bradycardic with stable BP on 2 pressors PE: VSS HR 38-40. O2 95-97% sat on 90/+16 HEENT: No obvious masses, adenopathy or JVD. Chest: coarse BS. CV: afib. S1 S2 No murmur or added sounds. Abd: Non-tender. Bowel sounds Y. : Unremarkable. Trotter Y. LEATHER SPRAYER/psychiatric: Sedated on vent No obvious focal findings. Extremities: 1+ edema. Capillary refill < 3 seconds. Skin: unremarkable. Results: Decreased Hb 12.5. WCC 11.3. A/P: Respiratory insufficiency/distress: cont present vent settings. Wean O2 as tello. Available chart/ vitals / labs /images reviewed. Video assessment done using teleICU camera, rest of exam as per RN. Critical Care: critically ill patient. Wean Phenylephrine as tello. Discussed with ANGEL Otto. Asked RN to reach out to eICU if any questions or concerns later. Time spent with patient/coordination of care with other health professionals (mins): 20 Sepsis Event Evaluation Height, Weight, BMI Height: '" Weight: lbs. oz. kg; 21.43 BMI Method: Exam Exam Patient acknowledged, consented, and participated in this virtual visit which was conducted using real time audio/video Vital Signs Date Time Temp Pulse Resp B/P (MAP) Pulse Ox O2 Delivery O2 Flow Rate FiO2 04/18/21 08:31 95 Mechanical Ventilator 90 04/18/21 08:00 47 25 113/65 (81) 98 Mechanical Ventilator 90.00 04/18/21 07:57 35.9 04/18/21 07:00 62 04/18/21 07:00 46 25 111/63 (79) 97 Mechanical Ventilator 90.00 04/18/21 06:54 56 26 97 90 04/18/21 06:00 57 25 118/71 (87) 97 Mechanical Ventilator 90.00 04/18/21 05:39 52 117/68 04/18/21 05:00 51 26 120/68 (85) 97 Mechanical Ventilator 90.00 04/18/21 04:00 98 Mechanical Ventilator 90 04/18/21 04:00 Mechanical Ventilator 90.00 04/18/21 04:00 36.6 04/18/21 04:00 52 25 117/68 (84) 96 Mechanical Ventilator 90.00 04/18/21 03:00 59 26 122/68 (86) 97 Mechanical Ventilator 100.00 04/18/21 02:18 52 26 97 100 04/18/21 02:00 61 24 126/74 (91) 97 Mechanical Ventilator 100.00 04/18/21 01:52 61 109/64 04/18/21 01:51 61 109/64 04/18/21 01:49 61 109/64 04/18/21 01:49 61 109/64 04/18/21 01:00 60 04/18/21 01:00 53 28 119/68 (85) 98 Mechanical Ventilator 100.00 04/18/21 00:00 98 Mechanical Ventilator 100 04/18/21 00:00 54 28 113/63 (80) 97 Mechanical Ventilator 100.00 04/17/21 23:00 61 20 109/64 (79) 98 Mechanical Ventilator 100.00 04/17/21 22:20 61 26 97 100 04/17/21 22:00 60 26 112/65 (81) 97 Mechanical Ventilator 100.00 04/17/21 21:00 87 25 97/56 (70) 92 Mechanical Ventilator 100.00 04/17/21 21:00 90 95/59 04/17/21 20:00 88 Mechanical Ventilator 100 04/17/21 20:00 36.2 04/17/21 20:00 84 25 94/55 (68) 93 Mechanical Ventilator 100.00 04/17/21 19:11 90 26 91 100 04/17/21 19:00 90 04/17/21 19:00 93 25 98/61 (73) 92 Mechanical Ventilator 100.00 04/17/21 18:06 99 99/57 04/17/21 18:05 99 99/57 04/17/21 18:00 95 25 102/63 (76) 94 Mechanical Ventilator 70.00 04/17/21 17:00 85 25 97/63 (74) 92 Mechanical Ventilator 70.00 04/17/21 16:00 70 26 90/60 (70) 90 Mechanical Ventilator 70.00 04/17/21 16:00 88 Mechanical Ventilator 100 04/17/21 15:50 36.9 04/17/21 15:20 78 82/55 04/17/21 15:00 85 26 88/56 (67) 91 Mechanical Ventilator 70.00 04/17/21 14:35 87 29 91 100 04/17/21 14:00 83 22 98/59 (72) 89 Mechanical Ventilator 70.00 04/17/21 13:00 86 31 117/58 (77) 89 Mechanical Ventilator 70.00 04/17/21 12:55 85 04/17/21 12:03 36.3 04/17/21 12:00 83 33 117/62 (80) 89 Mechanical Ventilator 70.00 04/17/21 12:00 87 Mechanical Ventilator 90 04/17/21 11:00 88 31 109/64 (79) 90 Mechanical Ventilator 70.00 04/17/21 10:17 90 28 90 70 04/17/21 10:00 71 27 114/62 (79) 89 Mechanical Ventilator 70.00 04/17/21 09:00 67 27 126/66 (86) 89 Mechanical Ventilator 70.00 I & O 04/18/21 06:59 Intake Total 1750 ml Output Total 2525 ml Balance -775 ml Height & Weight Height: '" Weight: lbs. oz. kg; 21.43 BMI Method: General Appearance: No Apparent Distress, WD/WN, Chronically ill, Other (Sedated and intubated) HEENT: PERRL/EOMI, Pharynx Normal Respiratory: No Accessory Muscle Use, No Respiratory Distress, Decreased Breath Sounds Cardiovascular: Regular Rate, Rhythm Capillary Refill: Less Than 3 Seconds Peripheral Pulses: 1+ Dorsalis Pedis (R), 1+ Left Dors-Pedis (L) (see free text) Gastrointestinal: soft, no organomegaly Extremity: Normal Capillary Refill Neurologic/Psychiatric: Alert, Oriented x3 Skin: Normal Color, Warm/Dry Results Lab Laboratory Tests 04/17/21 02:40 04/18/21 03:49 Assessment/Plan Assessment/Plan See free text Critical Care: Ventilator Management CARL CABRALES MD Apr 18, 2021 08:48
--- NOTE | 2021-04-18 10:12 | Cardiology Progress Note ---
Progress Note-Cardiology Events since last exam Date Seen by Provider: Apr 18, 2021 Time Seen by Provider: 10:07 Events since last exam We are seeing him due to atrial fibrillation. I spoke to his nurse of the day. Overnight the patient developed recurrent shock and is now back on vasopressin and phenylephrine. The nurse is attempting to wean the intravenous paralytic. He remains in atrial fibrillation. I did not see the patient due to his Covid status. Certain portions of this document may have been dictated utilizing voice recognition technology. Inherent to this technology, typographical and gra mmatical errors may exist. As much as I am diligent to identify and correct these mistakes, some errors may remain in the document. Vitals Last set of Vitals Signs Vital Signs 04/18/21 04/18/21 04/18/21 04/18/21 07:57 08:31 09:00 09:43 Temp 35.9 Pulse 66 Resp 25 B/P (MAP) 91/55 Pulse Ox 97 O2 Delivery Mechanical Ventilator O2 Flow Rate 90.00 FiO2 90 Labs Labs Laboratory Tests 04/18/21 03:49 Exam Vital Signs Vital Signs Date Time Temp Pulse Resp B/P (MAP) Pulse Ox O2 Delivery O2 Flow Rate FiO2 04/18/21 09:43 66 91/55 04/18/21 09:00 25 97 Mechanical Ventilator 90.00 04/18/21 08:31 90 04/18/21 07:57 35.9 Physical Exam I did not examine the patient due to his Covid status. Labs Laboratory Tests Test 04/17/21 11:36 04/17/21 17:50 04/18/21 00:00 04/18/21 03:49 Range/Units Glucometer 98 120 H 122 H 70-110 MG/DL White Blood Count 11.3 H 4.3-11.0 10^3/uL Red Blood Count 4.05 L 4.30-5.52 10^6/uL Hemoglobin 12.5 L 13.3-17.7 g/dL Hematocrit 39 L 40-54 % Mean Corpuscular Volume 96 80-99 fL Mean Corpuscular Hemoglobin 31 25-34 pg Mean Corpuscular Hemoglobin Concent 32 32-36 g/dL Red Cell Distribution Width 15.1 H 10.0-14.5 % Platelet Count 208 130-400 10^3/uL Mean Platelet Volume 10.5 9.0-12.2 fL Immature Granulocyte % (Auto) 2 % Neutrophils (%) (Auto) 87 H 42-75 % Lymphocytes (%) (Auto) 4 L 12-44 % Monocytes (%) (Auto) 6 0-12 % Eosinophils (%) (Auto) 1 0-10 % Basophils (%) (Auto) 0 0-10 % Neutrophils # (Auto) 9.8 H 1.8-7.8 10^3/uL Lymphocytes # (Auto) 0.5 L 1.0-4.0 10^3/uL Monocytes # (Auto) 0.6 0.0-1.0 10^3/uL Eosinophils # (Auto) 0.2 0.0-0.3 10^3/uL Basophils # (Auto) 0.0 0.0-0.1 10^3/uL Immature Granulocyte # (Auto) 0.2 H 0.0-0.1 10^3/uL Blood Gas Puncture Site ARTLINE Blood Gas Patient Temperature 36.6 Arterial Blood pH 7.39 7.37-7.43 Arterial Blood Partial Pressure CO2 40 35-45 MMHG Arterial Blood Partial Pressure O2 88 79-93 MMHG Arterial Blood HCO3 24 23-27 MMOL/L Arterial Blood Total CO2 24.9 21.0-31.0 MMOL/L Arterial Blood Oxygen Saturation 96 94-100 % Arterial Blood Base Excess -0.7 -2.5-2.5 MMOL/L Aldo Test ARTLINE Blood Gas Ventilator Setting YES Blood Gas Inspired Oxygen 90% Sodium Level 143 135-145 MMOL/L Potassium Level 4.3 3.6-5.0 MMOL/L Chloride Level 114 H 98-107 MMOL/L Carbon Dioxide Level 21 21-32 MMOL/L Anion Gap 8 5-14 MMOL/L Blood Urea Nitrogen 28 H 7-18 MG/DL Creatinine 0.67 0.60-1.30 MG/DL Estimat Glomerular Filtration Rate 116 BUN/Creatinine Ratio 42 Glucose Level 123 H 70-105 MG/DL Calcium Level 7.3 L 8.5-10.1 MG/DL Magnesium Level 2.4 1.6-2.4 MG/DL Diagnosis/Problems Diagnosis/Problems (1) Persistent atrial fibrillation Assessment & Plan: He remains in atrial fibrillation. Exact duration unknown. He is now on apixaban for stroke prophylaxis. His heart rates are controlled on no AV shimon blocking agents. If he recovers from the Covid infection, he will need some additional noninvasive cardiac testing. However, given the recurrent shock, his prognosis has worsened overnight. (2) Mixed hyperlipidemia Assessment & Plan: Continue home dose of atorvastatin. (3) HAYDE (acute kidney injury) Status: Acute Assessment & Plan: He had acute kidney injury at the time of admission. This has improved. There is no indication to adjust the dose of apixaban. (4) Septic shock Assessment & Plan: Recurrent. Most likely related to severe Covid infection. He is maintaining blood pressure on 2 vasopressors. Overall prognosis poor. (5) Acute respiratory failure due to COVID-19 Status: Acute Assessment & Plan: This is being managed by the hospitalist. MARTÍNEZ LEMON JR, MD Apr 18, 2021 10:12
[2021-04-18] MEDS: fentaNYL DRIP PRE-MIX 250 ML IV SCH ×2 (12:15→18:25)
[2021-04-18] MEDS: AtorvaSTATin TABLET 10 MG TABLET PO SCH (20:38)
[2021-04-19] VITALS (31 sets, daily range): BP systolic 95–127; BP diastolic 58–73
[2021-04-19] MEDS: RT-ALBUTEROL HFA 8.5 GM INHALER IH SCH ×6 (01:29→22:12)
[2021-04-19] MEDS: PIPERACILLIN/TAZOBACTAM (BULK) 4.5 GM in NS (IVPB) 100 ML IV SCH ×3 (02:40→17:42)
[2021-04-19] MEDS: PROPOFOL DRIP (ICU) 100 ML IV SCH ×5 (03:07→23:42)
[2021-04-19 03:31] LABS: BASOPHILS % (AUTO) 0 % (0-10); HEMOGLOBIN 11.4 g/dL (13.3-17.7); LYMPHOCYTES # (AUTO) 0.4 10^3/uL (1.0-4.0); MEAN CORPUSCULAR VOLUME 96 fL (80-99)
[2021-04-19 03:32] LABS: EOSINOPHILS # (AUTO) 0.1 10^3/uL (0.0-0.3); EOSINOPHILS % (AUTO) 1 % (0-10); HEMATOCRIT 35 % (40-54); LYMPHOCYTES % (AUTO) 5 % (12-44); MEAN CORPUSCULAR HEMOGLOBIN 31 pg (25-34); MEAN CORPUSCULAR HGB CONC 32 g/dL (32-36); MEAN PLATELET VOLUME 10.9 fL (9.0-12.2); MONOCYTES # (AUTO) 0.4 10^3/uL (0.0-1.0); MONOCYTES % (AUTO) 4 % (0-12); NEUTROPHILS # (AUTO) 8.4 10^3/uL (1.8-7.8); NEUTROPHILS % (AUTO) 89 % (42-75); PLATELET COUNT 138 10^3/uL (130-400); WHITE BLOOD COUNT 9.5 10^3/uL (4.3-11.0)
[2021-04-19 03:36] LABS: ABG BASE EXCESS 1.4 MMOL/L (-2.5-2.5); ABG OXYGEN SATURATION 95 % (94-100); ABG PCO2 36 MMHG (35-45); ABG PH 7.46 (7.37-7.43); ABG PO2 77 MMHG (79-93); ABG TCO2 26.1 MMOL/L (21.0-31.0)
[2021-04-19 03:37] LABS: ALLENS TEST ARTLINE; INSPIRED O2 70%; PATIENT TEMP 35.4; VENTILATOR YES
[2021-04-19 03:45] LABS: POTASSIUM 4.1 MMOL/L (3.6-5.0)
[2021-04-19 03:46] LABS: CALCIUM 7.3 MG/DL (8.5-10.1)
[2021-04-19 03:50] LABS: CREATININE SERUM 0.6 MG/DL (0.60-1.30)
[2021-04-19 03:53] LABS: MAGNESIUM 2.3 MG/DL (1.6-2.4)
[2021-04-19] MEDS: 1/2 NS IV SOLUTION 1,000 ML IV SCH ×3 (04:02→17:43)
[2021-04-19] MEDS: CISATRACURIUM DRIP 250 ML IV SCH ×4 (04:03→23:07)
[2021-04-19] MEDS: inSUlin ASPART (NovoLOG) 1 UNIT/0.01 ML (CHARGE PER UNIT) SQ SCH ×4 (05:12→23:40)
[2021-04-19] MEDS: MAGNESIUM 1 GM/100 ML IVPB 100 ML IV SCH (05:12)
[2021-04-19] MEDS: POTASSIUM CL 10MEQ/50ML IVPB 50 ML IV SCH (05:12)
[2021-04-19] MEDS: KCL 20 MEQ TAB (K-DUR) PO SCH (05:12)
--- NOTE | 2021-04-19 06:50 | Occ Therapy Progress Note ---
Therapy Progress Note Pt is currently intubated. OT will continue to monitor pt status and initiate treatment when pt is medically stable and able to actively participate in skilled therapy. MICHI AMAYA Apr 19, 2021 06:50
--- NOTE | 2021-04-19 07:53 | Physical Therapy Progress Note ---
Therapy Progress Note Patient is currently intubated and sedated. Will monitor and start patient when appropriate. FLASH ALLEN PT Apr 19, 2021 07:53
[2021-04-19] MEDS: APIXABAN 5 MG (ELIQUIS) TABLET PO SCH ×2 (07:56→21:02)
[2021-04-19] MEDS: PANTOPRAZOLE 40 MG (PROTONIX) VIAL IV SCH (07:56)
[2021-04-19] MEDS: fentaNYL DRIP PRE-MIX 250 ML IV SCH ×3 (09:29→23:42)
--- NOTE | 2021-04-19 09:35 | Diagnostic Imaging Report ---
INDICATION: COVID 19 pneumonia. TIME OF EXAM: 9:02 AM Correlation is made with prior chest 04/16/2021. ET tube has tip above the rose marie. NG tube passes below the diaphragm. Extensive bilateral pulmonary infiltrates persist and are unchanged from 3 days earlier. No effusion or pneumothorax is identified. IMPRESSION: Continued extensive bilateral pulmonary infiltrates. Dictated by: Dictated on workstation # [id number]
--- NOTE | 2021-04-19 09:39 | Tele-ICU Progress Note ---
Subjective Date Seen by a Provider: Apr 19, 2021 Time Seen by a Provider: 09:38 Sepsis Event Evaluation Height, Weight, BMI Height: '" Weight: lbs. oz. kg; 21.43 BMI Method: Exam Exam Patient acknowledged, consented, and participated in this virtual visit which was conducted using real time audio/video Vital Signs Date Time Temp Pulse Resp B/P (MAP) Pulse Ox O2 Delivery O2 Flow Rate FiO2 04/19/21 09:30 63 105/70 04/19/21 09:29 63 105/70 04/19/21 08:57 Mechanical Ventilator 60.00 04/19/21 08:00 35.5 04/19/21 08:00 61 20 123/63 (83) 97 Mechanical Ventilator 70.00 04/19/21 07:50 94 Mechanical Ventilator 60 04/19/21 07:28 67 04/19/21 07:10 65 26 96 70 04/19/21 07:00 60 23 108/69 (82) 100 Mechanical Ventilator 70.00 04/19/21 06:00 54 28 106/58 (74) 97 Mechanical Ventilator 70.00 04/19/21 05:00 79 26 99/61 (74) Mechanical Ventilator 70.00 04/19/21 04:00 35.6 04/19/21 04:00 54 27 112/64 (80) 96 Mechanical Ventilator 70.00 04/19/21 04:00 94 Mechanical Ventilator 70 04/19/21 03:07 54 108/62 04/19/21 03:07 54 108/62 04/19/21 03:00 59 25 100/61 (74) 95 Mechanical Ventilator 70.00 04/19/21 02:00 54 24 108/62 (77) 96 Mechanical Ventilator 70.00 04/19/21 01:30 65 26 96 70 04/19/21 01:00 50 26 112/58 (76) 97 Mechanical Ventilator 70.00 04/19/21 01:00 50 04/19/21 00:00 54 25 113/63 (80) 95 Mechanical Ventilator 70.00 04/19/21 00:00 94 Mechanical Ventilator 70 04/18/21 23:17 61 99/63 04/18/21 23:00 61 22 99/63 (75) 97 Mechanical Ventilator 70.00 04/18/21 22:00 61 25 111/58 (75) 96 Mechanical Ventilator 70.00 04/18/21 21:59 61 27 95 70 04/18/21 21:00 60 22 93/63 (73) 95 Mechanical Ventilator 70.00 04/18/21 20:00 36.0 04/18/21 20:00 94 Mechanical Ventilator 70 04/18/21 20:00 61 22 108/63 (78) 95 Mechanical Ventilator 70.00 04/18/21 19:00 72 29 116/62 (80) 93 Mechanical Ventilator 70.00 04/18/21 19:00 Mechanical Ventilator 70.00 04/18/21 19:00 72 04/18/21 18:36 74 27 93 70 04/18/21 18:26 64 102/60 04/18/21 18:24 64 102/60 04/18/21 18:00 64 27 102/60 (74) 94 Mechanical Ventilator 90.00 04/18/21 17:00 70 26 107/61 (76) 94 Mechanical Ventilator 90.00 04/18/21 16:00 36.4 04/18/21 16:00 66 28 91/62 (72) 92 Mechanical Ventilator 90.00 04/18/21 15:37 93 Mechanical Ventilator 70 04/18/21 15:00 71 26 98/55 (69) 90 Mechanical Ventilator 90.00 04/18/21 14:25 75 28 92 80 04/18/21 14:00 76 22 97/57 (70) 93 Mechanical Ventilator 90.00 04/18/21 13:00 60 04/18/21 13:00 75 21 89/57 (68) 92 Mechanical Ventilator 90.00 04/18/21 12:22 64 111/67 04/18/21 12:16 36.0 04/18/21 12:00 64 25 111/67 (82) 93 Mechanical Ventilator 90.00 04/18/21 11:47 93 Mechanical Ventilator 70 04/18/21 11:00 61 25 112/63 (79) 96 Mechanical Ventilator 90.00 04/18/21 10:46 57 26 96 80 04/18/21 10:00 61 25 113/66 (82) 96 Mechanical Ventilator 90.00 04/18/21 09:43 66 91/55 04/18/21 09:42 66 91/55 04/18/21 09:42 66 91/55 I & O 04/19/21 06:59 Intake Total 2261 ml Output Total 1110 ml Balance 1151 ml Height & Weight Height: '" Weight: lbs. oz. kg; 21.43 BMI Method: General Appearance: No Apparent Distress, WD/WN, Chronically ill, Other (Sedated and intubated) HEENT: PERRL/EOMI, Pharynx Normal Respiratory: No Accessory Muscle Use, No Respiratory Distress, Decreased Breath Sounds Cardiovascular: Regular Rate, Rhythm Capillary Refill: Less Than 3 Seconds Peripheral Pulses: 1+ Dorsalis Pedis (R), 1+ Left Dors-Pedis (L) (see free text) Gastrointestinal: soft, no organomegaly Extremity: Normal Capillary Refill Neurologic/Psychiatric: Alert, Oriented x3 Skin: Normal Color, Warm/Dry Results Lab Laboratory Tests 04/18/21 03:49 04/19/21 03:05 Assessment/Plan Assessment/Plan (Tele-ICU Physician , Progress Note ) Available chart/ vitals / labs / Images reviewed Video assessment done using teleICU camera, rest of exam as per RN Discussed with RN , EXAM PER RN Events overnight : o2 down AFEBRILE I/O = [id number] Drips: Pressors: vaso 0.3 hemodynamically stable Sedation gtt: ( RASS -3 ) propofol 40 . fentanyl VENT SETTINGS and ABG reviewed Not candidate for SBT today Contraindications: Cardiovascular Stability / Sedation Score / FI02/PEEP / ABG / CXR Consultants: arjun Hospital course: 04/11 - Vapotherm at 35 L and 85% 04/13 = to ICU , BiPAP 16/10 100% -> failed -> INTUBATED , peep 16 100% 04/14 - lisa/vaso , WBC 32 , AC 28 550 +12 55% 04/15 - hb ? 8.4 70 % +8 04/19 - AC 26 600 +16 70 % A/P AHRF / ARDS due to severe COVID19 -intubated 04/13 - AC 26 600 +16 70 % - not proneded - will try 04/19 Shock - probly sepsis - cont weaning pressors - DECREASED need for vasopressors - CPM [id number]/COVID-19 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 , Dx 3 weeks [employer] - he took Ivermectin ) -Steroids IV - started 04/12 -Hypercoagulable state , DDIMER > 20 on 04/10 -> on Eliquis - > changed to lovenox after intubation - eliquis 04/17 ( no evidence of large PE on CT 04/10 ) Suspected superimposed bact PNA -empiric ceftriaxone 04/11 -> zosyn 04/16 _ > Cx sputum 04/13 post intubation - usual jack leukocytosis - improved week 3 of covid , leginella ab neg Anemia - hb ? 8.4 - ?delutional vs GIB -> stable - will change PPI back to qd 04/19 A Fib of unknown duration (seen on admission on 04/11/21) - cards consulted - rate controlled Suspected pneumomediastinum on left on cxr 04/14 - stable - CAN FOLLOW PEEP PROTOCOL CODE Status - FULL , as per notes on H&P : " He would be ok with being on the ventilator if needed. When asked about code status, he says, "Just try for one round and then let me go." Lines : Left femrol line 04/13 (Central Line Necessity Reviewed) Trotter: 04/13 OG: + Nutrition: TF - tolerates Analgesia: Anxiety/ delirium VTE Prophylaxis: eliquis Stress Ulcer Prophylaxis: PO Glycemic Control: Plans in collaboration with bedside consultants and IM MDs. Discussed with RN to reach out if any questions or concerns A total of 45 minutes of critical care time was devoted to this patient today, required to treat and/or prevent further deterioration of critical care condition ( as above) . NNAMDI KRUSE MD Apr 19, 2021 09:38
--- NOTE | 2021-04-19 11:08 | Progress Note ---
BISHOP FRANCES MED STUDENT 04/19/21 1108: Subjective Date Seen by a Provider: Apr 19, 2021 Time Seen by a Provider: 06:35 Subjective/Events-last exam Remains sedated and intubated. Currently on vasopressin, phenyl off. Vitals stable per bedside monitor. Review of Systems General: Other (unobtainable) HEENT: Other (unobtainable) Cardiovascular: Other (unobtainable) Gastrointestinal: Other (unobtainable) Genitourinary: Other (unobtainable) Musculoskeletal: other (unobtainable) Neurological: Other (unobtainable) Objective Exam Last Set of Vital Signs Vital Signs Date Time Temp Pulse Resp B/P (MAP) Pulse Ox O2 Delivery O2 Flow Rate FiO2 04/19/21 10:57 73 26 96 60 04/19/21 10:00 104/65 (78) Mechanical Ventilator 60.00 04/19/21 08:00 35.5 Capillary Refill : Less Than 3 Seconds I&O Intake and Output 04/19/21 00:00 Intake Total 2261 ml Output Total 1125 ml Balance 1136 ml IV Total 221 ml Tube Feeding 1440 ml Other 600 ml Output Urine Total 1125 ml General: Other (Sedated/Intubated/Critically ill appearing) HEENT: Atraumatic, PERRLA, Other (Endotracheal tube/OGT. Eyes crusted slightly. Pupils 3mm bilaterally and react briskly. ) Neck: Supple, No LAD Lungs: Other (Diminished throughout. No crackles or wheezing. ) Heart: Regular Rate, Other (controlled afib per bedside monitor. Carp refill <3seconds bilat. Hands cool to touch bilat. No edema BLE. Radial and dorsalis pedis pulses +2/4 bilat. ) Abdomen: Normal Bowel Sounds, Soft, Other (BS normoactive x 4 quadrants. ) Extremities: No Clubbing, No Cyanosis, No Edema, Normal Pulses Skin: No Rashes, No Significant Lesion, Other (No breakdown per [employer]ICER) Neuro: Other (sedated) Psych/Mental Status: Other (sedated) Results Lab Laboratory Tests 04/18/21 11:50: Glucometer 127H 04/18/21 16:56: Glucometer 123H 04/18/21 23:14: Glucometer 112H 04/19/21 03:05: White Blood Count 9.5, Red Blood Count 3.67L, Hemoglobin 11.4L, Hematocrit 35L, Mean Corpuscular Volume 96, Mean Corpuscular Hemoglobin 31, Mean Corpuscular Hemoglobin Concent 32, Red Cell Distribution Width 14.8H, Platelet Count 138, Mean Platelet Volume 10.9, Immature Granulocyte % (Auto) 1, Neutrophils (%) (Auto) 89H, Lymphocytes (%) (Auto) 5L, Monocytes (%) (Auto) 4, Eosinophils (%) (Auto) 1, Basophils (%) (Auto) 0, Neutrophils # (Auto) 8.4H, Lymphocytes # (Auto) 0.4L, Monocytes # (Auto) 0.4, Eosinophils # (Auto) 0.1, Basophils # (Auto) 0.0, Immature Granulocyte # (Auto) 0.1, Percent Immature Platelet Fraction 4.1, Blood Gas Puncture Site ARTLINE, Blood Gas Patient Temperature 35.4, Arterial Blood pH 7.46H, Arterial Blood Partial Pressure CO2 36, Arterial Blood Partial Pressure O2 77L, Arterial Blood HCO3 25, Arterial Blood Total CO2 26.1, Arterial Blood Oxygen Saturation 95, Arterial Blood Base Excess 1.4, Aldo Test ARTLINE, Blood Gas Ventilator Setting YES, Blood Gas Inspired Oxygen 70%, Sodium Level 139, Potassium Level 4.1, Chloride Level 111H, Carbon Dioxide Level 20L, Anion Gap 8, Blood Urea Nitrogen 30H, Creatinine 0.60, Estimat Glomerular Filtration Rate 132, BUN/Creatinine Ratio 50, Glucose Level 115H, Calcium Level 7.3L, Magnesium Level 2.3 Microbiology 04/13/21 Gram Stain - Final, Complete 04/13/21 Sputum Culture - Final, Complete Usual upper respiratory jack Assessment/Plan Assessment/Plan Assess & Plan/Chief Complaint Acute hypoxic respiratory failure/ARDS -continue ventilatory management -TV 600. FIO2 70%. PEEP 16. RR 26. COVID-19 PNA -04-19-21 cxray Continued extensive bilateral pulmonary infiltrates. -Decadron Shock -vasopressin on, wean as tolerated. phenylephrine weaned off -Restart pressor to keep MAP>65 PRN -1/2 NS at 100ml/hr Leukocytosis -zosyn -resolved -WBC 9.5 today. continue to monitor. -likely steroid induced Anemia -hgb 11.4 today, stable -continue to monitor Hypercoagulable state associated with COVID-19 -d dimer on 04-15, 4.31 -eliquis Atrial fibrillation -eliquis GI ppx -protonix MAGGIE SHIPMAN DO 04/20/21 0517: Subjective Subjective/Events-last exam Patient still critically ill PEEP of 24 Ventilator and critical care management is appreciated We will update family later Just discharged from [facility] from Covid Objective Exam General: Other (Sedated/Intubated/Critically ill appearing) Lungs: Other (Diminished throughout. No crackles or wheezing. ) Heart: Regular Rate Assessment/Plan Assessment/Plan Assess & Plan/Chief Complaint Patient still critically ill PEEP of 24 is concerning for progression and end-stage Supervisory-Addendum Brief Verification & Attestation Participated in pt care: history, MDM, physical Personally performed: exam, history, MDM, supervision of care Care discussed with: Medical Student Procedures: n/a Results interpretation: Verified all documentation Verification and Attestation of Medical Student E/M Service A medical student performed and documented this service in my presence. I reviewed and verified all information documented by the medical student and made modifications to such information, when appropriate. I personally performed the physical exam and medical decision making. Maggie Shipman, Apr 20, 2021,05:16 BISHOP FRANCES MED STUDENT Apr 19, 2021 11:08 MAGGIE SHIPMAN DO Apr 20, 2021 05:17
--- NOTE | 2021-04-19 13:38 | Progress Note - Cardiology ---
Cardiology SOAP Progress Note Subjective: Intubated and on mech vent. Unable to communicate Objective: I&O/Vital Signs 04/19/21 04/19/21 04/19/21 04/19/21 02:00 03:00 03:07 03:07 Pulse 54 59 54 54 Resp 24 25 B/P (MAP) 108/62 (77) 100/61 (74) 108/62 108/62 Pulse Ox 96 95 O2 Delivery Mechanical Ventilator Mechanical Ventilator O2 Flow Rate 70.00 70.00 04/19/21 04/19/21 04/19/21 04/19/21 04:00 04:00 04:00 05:00 Temp 35.6 Pulse 54 79 Resp 27 26 B/P (MAP) 112/64 (80) 99/61 (74) Pulse Ox 94 96 O2 Delivery Mechanical Ventilator Mechanical Ventilator Mechanical Ventilator O2 Flow Rate 70.00 70.00 FiO2 70 04/19/21 04/19/21 04/19/21 04/19/21 06:00 07:00 07:10 07:28 Pulse 54 60 65 67 Resp 28 23 26 B/P (MAP) 106/58 (74) 108/69 (82) Pulse Ox 97 100 96 O2 Delivery Mechanical Ventilator Mechanical Ventilator O2 Flow Rate 70.00 70.00 FiO2 70 04/19/21 04/19/21 04/19/21 04/19/21 07:50 08:00 08:00 08:57 Temp 35.5 Pulse 61 Resp 20 B/P (MAP) 123/63 (83) Pulse Ox 94 97 O2 Delivery Mechanical Ventilator Mechanical Ventilator Mechanical Ventilator O2 Flow Rate 70.00 60.00 FiO2 60 04/19/21 04/19/21 04/19/21 04/19/21 09:00 09:29 09:30 10:00 Pulse 79 63 63 77 Resp 27 28 B/P (MAP) 111/73 (86) 105/70 105/70 104/65 (78) Pulse Ox 92 92 O2 Delivery Mechanical Ventilator Mechanical Ventilator O2 Flow Rate 60.00 60.00 04/19/21 04/19/21 04/19/21 04/19/21 10:57 11:00 12:00 12:21 Temp 37.4 Pulse 73 79 70 Resp 25 B/P (MAP) 126/70 (88) 112/67 (82) Pulse Ox 96 95 94 94 O2 Delivery Mechanical Ventilator Mechanical Ventilator Mechanical Ventilator O2 Flow Rate 60.00 60.00 FiO2 60 60 04/19/21 13:07 Pulse 67 04/19/21 00:00 Intake Total 1241 ml Output Total 525 ml Balance 716 ml Constitutional: other (Intubated, on mech vent, unable to communicate; I did n ot physically examine the patient to reduce exposure to COVID-19) Results/Procedures: Labs Laboratory Tests 04/18/21 16:56: Glucometer 123H 04/18/21 23:14: Glucometer 112H 04/19/21 03:05: White Blood Count 9.5, Red Blood Count 3.67L, Hemoglobin 11.4L, Hematocrit 35L, Mean Corpuscular Volume 96, Mean Corpuscular Hemoglobin 31, Mean Corpuscular Hemoglobin Concent 32, Red Cell Distribution Width 14.8H, Platelet Count 138, Mean Platelet Volume 10.9, Immature Granulocyte % (Auto) 1, Neutrophils (%) (Auto) 89H, Lymphocytes (%) (Auto) 5L, Monocytes (%) (Auto) 4, Eosinophils (%) (Auto) 1, Basophils (%) (Auto) 0, Neutrophils # (Auto) 8.4H, Lymphocytes # (Auto) 0.4L, Monocytes # (Auto) 0.4, Eosinophils # (Auto) 0.1, Basophils # (Auto) 0.0, Immature Granulocyte # (Auto) 0.1, Percent Immature Platelet Fraction 4.1, Blood Gas Puncture Site ARTLINE, Blood Gas Patient Temperature 35.4, Arterial Blood pH 7.46H, Arterial Blood Partial Pressure CO2 36, Arterial Blood Partial Pressure O2 77L, Arterial Blood HCO3 25, Arterial Blood Total CO2 26.1, Arterial Blood Oxygen Saturation 95, Arterial Blood Base Excess 1.4, Aldo Test ARTLINE, Blood Gas Ventilator Setting YES, Blood Gas Inspired Oxygen 70%, Sodium Level 139, Potassium Level 4.1, Chloride Level 111H, Carbon Dioxide Level 20L, Anion Gap 8, Blood Urea Nitrogen 30H, Creatinine 0.60, Estimat Glomerular Filtration Rate 132, BUN/Creatinine Ratio 50, Glucose Level 115H, Calcium Level 7.3L, Magnesium Level 2.3 04/19/21 11:12: Glucometer 127H Microbiology 04/13/21 Gram Stain - Final, Complete 04/13/21 Sputum Culture - Final, Complete Usual upper respiratory jack A/P: Assessment: COVID-19 pneumonia progressing to resp failure and requiring mechanical ventilation A Fib of unknown duration (seen on admission on 04/11/21), ventricular rate is well-controlled Plan: * Hospitalist and ICU services are managing COVID-19 and pneumonia and resp failure * Ventricular rate from A Fib continues to remain controlled * Continue anticoag for stroke prophylaxis * Monitor labs RONNIE RAMIREZ MD FACP FAC CCDS Apr 19, 2021 13:37
[2021-04-19] MEDS: AtorvaSTATin TABLET 10 MG TABLET PO SCH (21:02)
[2021-04-20] VITALS (30 sets, daily range): BP systolic 83–164; BP diastolic 56–95
[2021-04-20 02:19] LABS: ABG BASE EXCESS 0.3 MMOL/L (-2.5-2.5); ABG OXYGEN SATURATION 97 % (94-100); ABG PCO2 37 MMHG (35-45); ABG PH 7.43 (7.37-7.43); ABG PO2 85 MMHG (79-93); ABG TCO2 25.2 MMOL/L (21.0-31.0); BASOPHILS % (AUTO) 0 % (0-10); EOSINOPHILS # (AUTO) 0.1 10^3/uL (0.0-0.3); EOSINOPHILS % (AUTO) 0 % (0-10); HEMATOCRIT 34 % (40-54); HEMOGLOBIN 11.3 g/dL (13.3-17.7); LYMPHOCYTES # (AUTO) 0.6 10^3/uL (1.0-4.0); LYMPHOCYTES % (AUTO) 4 % (12-44); MEAN CORPUSCULAR HEMOGLOBIN 32 pg (25-34); MEAN CORPUSCULAR HGB CONC 33 g/dL (32-36); MEAN CORPUSCULAR VOLUME 96 fL (80-99); MEAN PLATELET VOLUME 11.2 fL (9.0-12.2); MONOCYTES # (AUTO) 0.5 10^3/uL (0.0-1.0); MONOCYTES % (AUTO) 4 % (0-12); NEUTROPHILS # (AUTO) 11.1 10^3/uL (1.8-7.8); NEUTROPHILS % (AUTO) 89 % (42-75); PLATELET COUNT 170 10^3/uL (130-400); WHITE BLOOD COUNT 12.5 10^3/uL (4.3-11.0)
[2021-04-20 02:23] LABS: ALLENS TEST ARTLINE
[2021-04-20 02:24] LABS: INSPIRED O2 60%; PATIENT TEMP 36.7; VENTILATOR YES
[2021-04-20 02:28] LABS: POTASSIUM 4.1 MMOL/L (3.6-5.0)
[2021-04-20 02:30] LABS: CALCIUM 7.6 MG/DL (8.5-10.1)
[2021-04-20 02:34] LABS: CREATININE SERUM 0.68 MG/DL (0.60-1.30)
[2021-04-20 02:36] LABS: MAGNESIUM 2.4 MG/DL (1.6-2.4)
[2021-04-20] MEDS: RT-ALBUTEROL HFA 8.5 GM INHALER IH SCH ×6 (02:52→22:23)
[2021-04-20] MEDS: PIPERACILLIN/TAZOBACTAM (BULK) 4.5 GM in NS (IVPB) 100 ML IV SCH ×3 (03:16→17:33)
[2021-04-20] MEDS: CISATRACURIUM DRIP 250 ML IV SCH ×4 (03:17→23:30)
[2021-04-20] MEDS: POTASSIUM CL 10MEQ/50ML IVPB 50 ML IV SCH (03:18)
[2021-04-20] MEDS: inSUlin ASPART (NovoLOG) 1 UNIT/0.01 ML (CHARGE PER UNIT) SQ SCH ×4 (03:19→23:30)
[2021-04-20] MEDS: MAGNESIUM 1 GM/100 ML IVPB 100 ML IV SCH (03:19)
[2021-04-20] MEDS: KCL 20 MEQ TAB (K-DUR) PO SCH (03:19)
[2021-04-20] MEDS: 1/2 NS IV SOLUTION 1,000 ML IV SCH ×2 (04:12→15:22)
--- NOTE | 2021-04-20 07:00 | Occ Therapy Progress Note ---
Therapy Progress Note Pt is currently intubated. OT will continue to monitor pt status and initiate treatment when pt is medically stable and able to actively participate in skilled therapy. MICHI AMAYA Apr 20, 2021 07:00
--- NOTE | 2021-04-20 07:45 | Diagnostic Imaging Report ---
HISTORY: Endotracheal tube. Covid positive. COMPARISON: 04/19/2021 TECHNIQUE: Frontal view of the chest. FINDINGS: The endotracheal tube is stable in position, about 6.4 cm above the rose marie. The left PICC line tip projects over the mid SVC. An enteric tube crosses the [id number]. There are extensive airspace opacities throughout the lungs bilaterally. Aeration appears minimally improved on the right and stable on the left. No pleural effusion or pneumothorax seen. The cardiac silhouette is normal in size. IMPRESSION: 1. Extensive airspace opacities in the lungs bilaterally, stable on the left and mildly improved on the right. Dictated by: Dictated on workstation # [id number]
--- NOTE | 2021-04-20 07:48 | Physical Therapy Progress Note ---
Therapy Progress Note Patient is currently intubated and sedated. Will monitor and start patient when appropriate. FLASH ALLEN PT Apr 20, 2021 07:48
[2021-04-20] MEDS: fentaNYL DRIP PRE-MIX 250 ML IV SCH ×2 (08:18→08:19)
[2021-04-20] MEDS: APIXABAN 5 MG (ELIQUIS) TABLET PO SCH ×2 (08:19→21:11)
[2021-04-20] MEDS: PANTOPRAZOLE 40 MG (PROTONIX) VIAL IV SCH (08:19)
[2021-04-20] MEDS: ACETAMINOPHEN 500 MG TAB (TYLENOL) PO PRN (08:29)
--- NOTE | 2021-04-20 08:49 | Progress Note ---
BISHOP FRANCES MED STUDENT 04/20/21 0849: Subjective Date Seen by a Provider: Apr 20, 2021 Time Seen by a Provider: 06:55 Subjective/Events-last exam Patient remains sedated and intubated. VSS per bedside monitor. No pressors. Review of Systems General: Other (unobtainable) HEENT: Other (unobtainable) Pulmonary: Other (unobtainable) Cardiovascular: Other (unobtainable) Gastrointestinal: Other (unobtainable) Genitourinary: Other (unobtainable) Musculoskeletal: other (unobtainable) Neurological: Other (unobtainable) Objective Exam Last Set of Vital Signs Vital Signs Date Time Temp Pulse Resp B/P (MAP) Pulse Ox O2 Delivery O2 Flow Rate FiO2 04/20/21 08:29 38.2 04/20/21 08:00 100 18 115/77 (90) 94 Mechanical Ventilator 50.00 04/20/21 07:01 50 Capillary Refill : Less Than 3 Seconds I&O Intake and Output 04/20/21 00:00 Intake Total 1080 ml Output Total 2360 ml Balance -1280 ml Tube Feeding 780 ml Other 300 ml Output Urine Total 2360 ml General: Other (Sedated and intubated. Critically ill appearing. ) HEENT: Atraumatic, Other (Pupils 3mm bilaterally and brisk. Endotracheal tube in place. OGT in place. ) Neck: Supple, No LAD Lungs: Other (Diminished. No wheezing, crackles, or rhonichi heard. ) Heart: Regular Rate, No Murmurs Abdomen: Normal Bowel Sounds, Soft, Other (BS normoactive x 4 quadrants. ) Extremities: No Clubbing, No Cyanosis, No Edema, Normal Pulses Skin: No Rashes, No Significant Lesion Neuro: Other (sedated) Psych/Mental Status: Other (sedated) Results Lab Laboratory Tests 04/19/21 11:12: Glucometer 127H 04/19/21 17:41: Glucometer 98 04/19/21 23:38: Glucometer 83 04/20/21 02:05: White Blood Count 12.5H, Red Blood Count 3.59L, Hemoglobin 11.3L, Hematocrit 34L , Mean Corpuscular Volume 96, Mean Corpuscular Hemoglobin 32, Mean Corpuscular H emoglobin Concent 33, Red Cell Distribution Width 14.6H, Platelet Count 170, Mean Platelet Volume 11.2, Immature Granulocyte % (Auto) 1, Neutrophils (%) (Auto) 89H, Lymphocytes (%) (Auto) 4L, Monocytes (%) (Auto) 4, Eosinophils (%) (Auto) 0, Basophils (%) (Auto) 0, Neutrophils # (Auto) 11.1H, Lymphocytes # (Auto) 0.6L, Monocytes # (Auto) 0.5, Eosinophils # (Auto) 0.1, Basophils # (Auto) 0.0, Immature Granulocyte # (Auto) 0.2H, Blood Gas Puncture Site RIGHT RADIAL, Blood Gas Patient Temperature 36.7, Arterial Blood pH 7.43, Arterial Blood Partial Pressure CO2 37, Arterial Blood Partial Pressure O2 85, Arterial Blood HCO3 24, Arterial Blood Total CO2 25.2, Arterial Blood Oxygen Saturation 97, Arterial Blood Base Excess 0.3, Aldo Test ARTLINE, Blood Gas Ventilator Setting YES, Blood Gas Inspired Oxygen 60%, Sodium Level 142, Potassium Level 4.1, Chloride Level 112H, Carbon Dioxide Level 21, Anion Gap 9, Blood Urea Nitrogen 21H, Creatinine 0.68, Estimat Glomerular Filtration Rate 114, BUN/Creatinine Ratio 31, Glucose Level 79, Calcium Level 7.6L, Magnesium Level 2.4 Microbiology 04/13/21 Gram Stain - Final, Complete 04/13/21 Sputum Culture - Final, Complete Usual upper respiratory jack Assessment/Plan Assessment/Plan Assess & Plan/Chief Complaint Acute hypoxic respiratory failure/ARDS -continue ventilatory management -TV 600. FIO2 50%. PEEP 12. RR 26. Oxygen requirements decreased today. COVID-19 PNA -04-20-21 cxray Extensive airspace opacities in the lungs bilaterally, stable on the left and mildly improved on the right. -Decadron Probable aspiration PNA -RN's report TF in ETT and coming out of mouth when proned yesterday -new fever to 37.8 centigrade -continue coverage with zosyn -hold TF's -obtain sputum culture -KUB tomorrow to assess for ileus/obstruction -add reglan Shock -resolved, pressors off -Restart pressor to keep MAP>65 PRN -1/2 NS at 100ml/hr Leukocytosis -zosyn -WBC 12.5 today. continue to monitor. -likely steroid induced Anemia -hgb 11.3 today, stable -continue to monitor Hypercoagulable state associated with COVID-19 -d dimer on 04-15, 4.31 -eliquis Atrial fibrillation -eliquis GI ppx -protonix Last triglyceride level 04-17, was 171. Repeat as is still on propofol gtt. MAGGIE SHIPMAN DO 04/21/21 0525: Subjective Subjective/Events-last exam Patient being prone We will update family today or tomorrow Still critical Objective Exam General: Other (Sedated and intubated. Critically ill appearing. ) Lungs: Other (Diminished. No wheezing, crackles, or rhonichi heard. ) Heart: Regular Rate Assessment/Plan Assessment/Plan Assess & Plan/Chief Complaint Supportive care Update family today or tomorrow Supervisory-Addendum Brief Verification & Attestation Participated in pt care: history, MDM, physical Personally performed: exam, history, MDM, supervision of care Care discussed with: Medical Student Procedures: n/a Results interpretation: Verified all documentation Verification and Attestation of Medical Student E/M Service A medical student performed and documented this service in my presence. I reviewed and verified all information documented by the medical student and made modifications to such information, when appropriate. I personally performed the physical exam and medical decision making. Maggie Shipman, Apr 21, 2021,05:23 BISHOP FRANCES MED STUDENT Apr 20, 2021 08:49 MAGGIE SHIPMAN DO Apr 21, 2021 05:25
--- NOTE | 2021-04-20 10:02 | Diagnostic Imaging Report ---
INDICATION: Vomiting. TECHNIQUE: Single view of the abdomen 9:33 AM CORRELATION STUDY: 04/16/2021 FINDINGS: Gastric tube tip left upper quadrant likely in the region of the body of the stomach. Generalized paucity of bowel gas is present. No findings to suggest high degree of bowel obstruction. Tip of a presumed Trotter catheter in the urinary bladder is also noted in the low midline pelvis. Partial visualized bilateral hip arthroplasty. There is asymmetric apparent soft tissues over the left pelvis region, nonspecific. May reflect overlapping summation shadow. IMPRESSION: 1. Gastric tube tip likely in the region of the body of the stomach. Nonobstructive appearing bowel gas pattern. Dictated by: Dictated on workstation # [id number]
--- NOTE | 2021-04-20 10:15 | Tele-ICU Progress Note ---
Subjective Date Seen by a Provider: Apr 20, 2021 Time Seen by a Provider: 10:14 Sepsis Event Evaluation Height, Weight, BMI Height: '" Weight: lbs. oz. kg; 21.43 BMI Method: Exam Exam Patient acknowledged, consented, and participated in this virtual visit which was conducted using real time audio/video Vital Signs Date Time Temp Pulse Resp B/P (MAP) Pulse Ox O2 Delivery O2 Flow Rate FiO2 04/20/21 10:00 38.0 86 26 103/64 (77) 96 Mechanical Ventilator 50.00 04/20/21 09:00 38.2 94 25 83/56 (65) 96 Mechanical Ventilator 50.00 04/20/21 08:29 38.2 04/20/21 08:00 38.2 100 18 115/77 (90) 94 Mechanical Ventilator 50.00 04/20/21 08:00 96 Mechanical Ventilator 50 04/20/21 07:01 50 04/20/21 07:00 37.9 107 23 164/95 (118) 97 Mechanical Ventilator 50.00 04/20/21 06:52 93 29 96 60 04/20/21 06:43 97 04/20/21 06:00 37.8 91 25 127/82 (97) 96 Mechanical Ventilator 60.00 04/20/21 05:00 37.8 89 26 124/74 (91) Mechanical Ventilator 60.00 04/20/21 04:00 37.8 89 25 156/88 (110) 97 Mechanical Ventilator 60.00 04/20/21 04:00 96 Mechanical Ventilator 60 04/20/21 03:49 105 26 92 04/20/21 03:00 37.9 96 14 112/77 (89) 99 Mechanical Ventilator 60.00 04/20/21 02:52 73 26 94 60 04/20/21 02:00 36.6 73 25 114/63 (80) 98 Mechanical Ventilator 60.00 04/20/21 01:00 72 04/20/21 01:00 36.4 72 25 108/64 (79) 98 Mechanical Ventilator 60.00 04/20/21 00:00 96 Mechanical Ventilator 60 04/20/21 00:00 36.2 60 25 95/61 (72) 97 Mechanical Ventilator 60.00 04/19/21 23:42 62 95/64 04/19/21 23:00 36.0 62 26 95/64 (74) 95 Mechanical Ventilator 60.00 04/19/21 22:12 73 26 94 60 04/19/21 22:00 36.0 67 20 108/66 (80) 97 Mechanical Ventilator 60.00 04/19/21 21:00 35.9 62 13 99/62 (74) 95 Mechanical Ventilator 60.00 04/19/21 20:00 36.1 65 9 106/64 (78) 96 Mechanical Ventilator 60.00 04/19/21 20:00 95 Mechanical Ventilator 60 04/19/21 19:35 36.2 66 26 105/64 (78) 90 Mechanical Ventilator 60.00 04/19/21 19:00 67 04/19/21 19:00 36.3 67 11 115/68 (84) 91 Mechanical Ventilator 60.00 04/19/21 18:42 70 26 91 60 04/19/21 18:00 64 25 107/61 (76) 90 Mechanical Ventilator 60.00 04/19/21 17:00 67 25 112/63 (79) 91 Mechanical Ventilator 60.00 04/19/21 16:50 68 123/68 04/19/21 16:50 68 123/68 04/19/21 16:00 91 Mechanical Ventilator 60 04/19/21 16:00 68 26 114/63 (80) 91 Mechanical Ventilator 60.00 04/19/21 15:00 75 26 119/66 (83) 92 Mechanical Ventilator 60.00 04/19/21 14:52 69 26 93 60 04/19/21 14:00 73 26 121/66 (84) 94 Mechanical Ventilator 60.00 04/19/21 13:07 67 04/19/21 13:00 80 26 127/71 (89) 95 Mechanical Ventilator 60.00 04/19/21 12:21 94 Mechanical Ventilator 60 04/19/21 12:00 37.4 70 25 112/67 (82) 94 Mechanical Ventilator 60.00 04/19/21 11:00 79 26 126/70 (88) 95 Mechanical Ventilator 60.00 04/19/21 10:57 73 26 96 60 I & O 04/20/21 07:00 Intake Total 400 ml Output Total 2425 ml Balance -2025 ml Height & Weight Height: '" Weight: lbs. oz. kg; 21.43 BMI Method: General Appearance: No Apparent Distress, WD/WN, Chronically ill, Other (Sedated and intubated) HEENT: PERRL/EOMI, Pharynx Normal Respiratory: No Accessory Muscle Use, No Respiratory Distress, Decreased Breath Sounds Cardiovascular: Regular Rate, Rhythm Capillary Refill: Less Than 3 Seconds Peripheral Pulses: 1+ Dorsalis Pedis (R), 1+ Left Dors-Pedis (L) (see free text) Gastrointestinal: soft, no organomegaly Extremity: Normal Capillary Refill Neurologic/Psychiatric: Alert, Oriented x3 Skin: Normal Color, Warm/Dry Results Lab Laboratory Tests 04/19/21 03:05 04/20/21 02:05 Assessment/Plan Assessment/Plan (Tele-ICU Physician , Progress Note ) Available chart/ vitals / labs / Images reviewed Video assessment done using teleICU camera, rest of exam as per RN Discussed with RN , EXAM PER RN Events overnight : FEBRILE 38 I/O = neg 1280 Drips: 1/2 ns 100sput Pressors: off 04/19 hemodynamically stable Sedation gtt: ( RASS -3 ) propofol 40 . fentanyl 160 VENT SETTINGS and ABG reviewed Not candidate for SBT today Contraindications: Cardiovascular Stability / Sedation Score / FI02/PEEP / ABG / CXR Consultants: arjun Hospital course: 04/11 - Vapotherm at 35 L and 85% 04/13 = to ICU , BiPAP 16/10 100% -> failed -> INTUBATED , peep 16 100% 04/14 - lisa/vaso , WBC 32 , AC 28 550 +12 55% 04/15 - hb ? 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 ) -Steroids IV - started 04/12 -Hypercoagulable state , DDIMER > 20 on 04/10 -> on Eliquis - > changed to lovenox after intubation - > back to eliquis 04/17 ( no evidence of large PE on CT 04/10 ) Suspected superimposed bact PNA ( week 3 of covid , leginella ab neg ) -empiric ceftriaxone 04/11 -> zosyn 04/16 -> Cx sputum 04/13 post intubation - usual jack -NEW FEVER 04/20 - suspected aspiration even t 04/20 - reculture Anemia - stable - will change PPI back to qd 04/19 A Fib of unknown duration (seen on admission on 04/11/21) - cards consulted - rate controlled Suspected pneumomediastinum on left on cxr 04/14 - stable - CAN FOLLOW PEEP PROTOCOL CODE Status - FULL , as per notes on H&P : " He would be ok with being on the ventilator if needed. When asked about code status, he says, "Just try for one round and then let me go." Lines : Left femrol line 04/13 (Central Line Necessity Reviewed) Trotter: 04/13 OG: + Nutrition: TF - 04/20 - adding ROSAMARIA Mathur TF on hold Analgesia: Anxiety/ delirium VTE Prophylaxis: eliquis Stress Ulcer Prophylaxis: PO Glycemic Control: Plans in collaboration with bedside consultants and IM MDs. Discussed with RN to reach out if any questions or concerns A total of 40 minutes of critical care time was devoted to this patient today, required to treat and/or prevent further deterioration of critical care condition ( as above) . NNAMDI KRUSE MD Apr 20, 2021 10:15
--- NOTE | 2021-04-20 11:18 | Progress Note - Cardiology ---
Cardiology SOAP Progress Note Subjective: Intubated and on mech vent. Unable to communicate Objective: I&O/Vital Signs 04/19/21 04/20/21 04/20/21 04/20/21 23:42 00:00 00:00 01:00 Temp 36.2 36.4 Pulse 62 60 72 Resp B/P (MAP) 95/64 95/61 (72) 108/64 (79) Pulse Ox 97 96 98 O2 Delivery Mechanical Ventilator Mechanical Ventilator Mechanical Ventilator O2 Flow Rate 60.00 60.00 FiO2 60 04/20/21 04/20/21 04/20/21 04/20/21 01:00 02:00 02:52 03:00 Temp 36.6 37.9 Pulse 72 73 73 96 Resp B/P (MAP) 114/63 (80) 112/77 (89) Pulse Ox 98 94 99 O2 Delivery Mechanical Ventilator Mechanical Ventilator O2 Flow Rate 60.00 60.00 FiO2 60 04/20/21 04/20/21 04/20/21 04/20/21 03:49 04:00 04:00 05:00 Temp 37.8 37.8 Pulse 105 89 89 Resp B/P (MAP) 156/88 (110) 124/74 (91) Pulse Ox 92 96 97 O2 Delivery Mechanical Ventilator Mechanical Ventilator Mechanical Ventilator O2 Flow Rate 60.00 60.00 FiO2 60 04/20/21 04/20/21 04/20/21 04/20/21 06:00 06:43 06:52 07:00 Temp 37.8 37.9 Pulse 91 97 93 107 Resp B/P (MAP) 127/82 (97) 164/95 (118) Pulse Ox 96 96 97 O2 Delivery Mechanical Ventilator Mechanical Ventilator O2 Flow Rate 60.00 50.00 FiO2 60 04/20/21 04/20/21 04/20/21 04/20/21 07:01 08:00 08:00 08:29 Temp 38.2 38.2 Pulse 100 Resp 18 B/P (MAP) 115/77 (90) Pulse Ox 96 94 O2 Delivery Mechanical Ventilator Mechanical Ventilator O2 Flow Rate 50.00 FiO2 50 50 04/20/21 04/20/21 04/20/21 09:00 10:00 10:21 Temp 38.2 38.0 Pulse 94 86 90 Resp 25 26 26 B/P (MAP) 83/56 (65) 103/64 (77) Pulse Ox 96 96 95 O2 Delivery Mechanical Ventilator Mechanical Ventilator O2 Flow Rate 50.00 50.00 FiO2 50 04/19/21 23:59 Intake Total 60 ml Output Total 1900 ml Balance -1840 ml Constitutional: other (Intubated, on mech vent, unable to communicate; I did not physically examine the patient to reduce exposure to COVID-19) Results/Procedures: Labs Laboratory Tests 04/19/21 17:41: Glucometer 98 04/19/21 23:38: Glucometer 83 04/20/21 02:05: White Blood Count 12.5H, Red Blood Count 3.59L, Hemoglobin 11.3L, Hematocrit 34L , Mean Corpuscular Volume 96, Mean Corpuscular Hemoglobin 32, Mean Corpuscular Hemoglobin Concent 33, Red Cell Distribution Width 14.6H, Platelet Count 170, Mean Platelet Volume 11.2, Immature Granulocyte % (Auto) 1, Neutrophils (%) (Auto) 89H, Lymphocytes (%) (Auto) 4L, Monocytes (%) (Auto) 4, Eosinophils (%) (Auto) 0, Basophils (%) (Auto) 0, Neutrophils # (Auto) 11.1H, Lymphocytes # (Auto) 0.6L, Monocytes # (Auto) 0.5, Eosinophils # (Auto) 0.1, Basophils # (Auto) 0.0, Immature Granulocyte # (Auto) 0.2H, Blood Gas Puncture Site RIGHT RADIAL, Blood Gas Patient Temperature 36.7, Arterial Blood pH 7.43, Arterial Blood Partial Pressure CO2 37, Arterial Blood Partial Pressure O2 85, Arterial Blood HCO3 24, Arterial Blood Total CO2 25.2, Arterial Blood Oxygen Saturation 97, Arterial Blood Base Excess 0.3, Aldo Test ARTLINE, Blood Gas Ventilator Setting YES, Blood Gas Inspired Oxygen 60%, Sodium Level 142, Potassium Level 4.1, Chloride Level 112H, Carbon Dioxide Level 21, Anion Gap 9, Blood Urea Nitrogen 21H, Creatinine 0.68, Estimat Glomerular Filtration Rate 114, BUN/Creatinine Ratio 31, Glucose Level 79, Calcium Level 7.6L, Magnesium Level 2.4 Microbiology 04/13/21 Gram Stain - Final, Complete 04/13/21 Sputum Culture - Final, Complete Usual upper respiratory jack Laboratory Tests 04/19/21 03:05 04/20/21 02:05 A/P: Assessment: COVID-19 pneumonia progressing to resp failure and requiring mechanical ventilation A Fib of unknown duration (seen on admission on 04/11/21), ventricular rate is well-controlled Plan: * Hospitalist and ICU services are managing COVID-19 and pneumonia and resp failure * Ventricular rate from A Fib continues to remain controlled * Continue anticoag for stroke prophylaxis * Monitor labs RONNIE RAMIREZ MD FACP FAC CCDS Apr 20, 2021 11:18
[2021-04-20] MEDS: METOCLOPRAMIDE INJ 10 MG/2 ML (REGLAN) IVP SCH ×2 (11:35→17:33)
[2021-04-20] MEDS: PROPOFOL DRIP (ICU) 100 ML IV SCH ×2 (11:36→11:37)
[2021-04-20] MEDS: AtorvaSTATin TABLET 10 MG TABLET PO SCH (21:11)
[2021-04-21] VITALS (30 sets, daily range): BP systolic 79–156; BP diastolic 53–93
[2021-04-21] MEDS: PIPERACILLIN/TAZOBACTAM (BULK) 4.5 GM in NS (IVPB) 100 ML IV SCH (00:53)
[2021-04-21] MEDS: 1/2 NS IV SOLUTION 1,000 ML IV SCH ×2 (00:53→10:55)
[2021-04-21] MEDS: METOCLOPRAMIDE INJ 10 MG/2 ML (REGLAN) IVP SCH ×5 (00:53→23:46)
[2021-04-21] MEDS: fentaNYL DRIP PRE-MIX 250 ML IV SCH ×2 (01:00→14:13)
[2021-04-21] MEDS: PROPOFOL DRIP (ICU) 100 ML IV SCH ×4 (02:41→14:14)
[2021-04-21] MEDS: RT-ALBUTEROL HFA 8.5 GM INHALER IH SCH ×6 (02:53→22:38)
[2021-04-21] MEDS: CISATRACURIUM DRIP 250 ML IV SCH ×3 (04:05→18:22)
[2021-04-21 04:30] LABS: ABG BASE EXCESS -1.7 MMOL/L (-2.5-2.5); ABG OXYGEN SATURATION 91 % (94-100); ABG PCO2 36 MMHG (35-45); ABG PH 7.41 (7.37-7.43); ABG PO2 59 MMHG (79-93); ABG TCO2 23.5 MMOL/L (21.0-31.0)
[2021-04-21 04:32] LABS: ALLENS TEST ARTLINE
[2021-04-21 04:33] LABS: PATIENT TEMP 36.5; VENTILATOR YES
[2021-04-21 04:38] LABS: BASOPHILS % (AUTO) 0 % (0-10); EOSINOPHILS # (AUTO) 0.1 10^3/uL (0.0-0.3); EOSINOPHILS % (AUTO) 1 % (0-10); HEMATOCRIT 42 % (40-54); HEMOGLOBIN 13.8 g/dL (13.3-17.7); LYMPHOCYTES # (AUTO) 1.3 10^3/uL (1.0-4.0); LYMPHOCYTES % (AUTO) 8 % (12-44); MEAN CORPUSCULAR HEMOGLOBIN 31 pg (25-34); MEAN CORPUSCULAR HGB CONC 33 g/dL (32-36); MEAN CORPUSCULAR VOLUME 94 fL (80-99); MEAN PLATELET VOLUME 11.4 fL (9.0-12.2); MONOCYTES # (AUTO) 0.7 10^3/uL (0.0-1.0); MONOCYTES % (AUTO) 5 % (0-12); NEUTROPHILS # (AUTO) 13.5 10^3/uL (1.8-7.8); NEUTROPHILS % (AUTO) 85 % (42-75); PLATELET COUNT 260 10^3/uL (130-400); WHITE BLOOD COUNT 15.9 10^3/uL (4.3-11.0)
[2021-04-21 04:42] LABS: POTASSIUM 3.8 MMOL/L (3.6-5.0)
[2021-04-21 04:43] LABS: CALCIUM 8.1 MG/DL (8.5-10.1)
[2021-04-21 04:47] LABS: CREATININE SERUM 0.64 MG/DL (0.60-1.30)
[2021-04-21 04:50] LABS: MAGNESIUM 2.3 MG/DL (1.6-2.4)
[2021-04-21] MEDS: MAGNESIUM 1 GM/100 ML IVPB 100 ML IV SCH (06:19)
[2021-04-21] MEDS: POTASSIUM CL 10MEQ/50ML IVPB 50 ML IV SCH (06:19)
[2021-04-21] MEDS: inSUlin ASPART (NovoLOG) 1 UNIT/0.01 ML (CHARGE PER UNIT) SQ SCH ×4 (06:19→23:46)
[2021-04-21] MEDS: KCL 20 MEQ TAB (K-DUR) PO SCH (06:19)
--- NOTE | 2021-04-21 06:45 | Occ Therapy Progress Note ---
Therapy Progress Note Pt is currently intubated. OT will continue to monitor pt status and initiate treatment when pt is medically stable and able to actively participate in skilled therapy. MICHI AMAYA Apr 21, 2021 06:45
--- NOTE | 2021-04-21 07:24 | Progress Note ---
BISHOP FRANCES MED STUDENT 04/21/21 0724: Subjective Date Seen by a Provider: Apr 21, 2021 Time Seen by a Provider: 06:50 Subjective/Events-last exam Patient remains sedated and intubated. Night EDUCATION MANAGERS reports patient not tolerating tube feeds and had tube feeds suctioned out of ETT. Also concern for significant sediment in lopez and possible hematuria per night nurse. Vitals stable per bedside monitor. Review of Systems General: Other (unobtainable) HEENT: Other (unobtainable) Cardiovascular: Other (unobtainable) Gastrointestinal: Other (unobtainable) Genitourinary: Other (unobtainable) Musculoskeletal: other (unobtainable) Neurological: Other (unobtainable) Objective Exam Last Set of Vital Signs Vital Signs Date Time Temp Pulse Resp B/P (MAP) Pulse Ox O2 Delivery O2 Flow Rate FiO2 04/21/21 06:00 36.7 80 30 94/63 (73) 92 Mechanical Ventilator 55.00 04/21/21 04:00 55 Capillary Refill : Less Than 3 Seconds I&O Intake and Output 04/21/21 00:00 Intake Total 120 ml Output Total 1650 ml Balance -1530 ml Intake Oral 0 ml Tube Feeding 60 ml Other 60 ml Output Urine Total 1650 ml General: Other (Sedated and intubated. Critically ill appearing. ) HEENT: Atraumatic, Other (Left lateral periorbital superficial breakdown. Endotracheal tube in place. OGT in place. ) Neck: Supple, No LAD Lungs: Other (Coarse throughout with end expiratory wheezing bilaterally. No crackles heard. ) Heart: Regular Rate, No Murmurs, Other (Controlled afib per bedside monitor. Cap refill >3seconds bilateral hands. Radial pulses +1/4 bilat. Cool to palpation bilat hands and feet. ) Abdomen: Normal Bowel Sounds, Soft Extremities: No Clubbing, No Edema Skin: No Significant Lesion, Other (Left perioribital superficial skin break down approximately nickel sized. R elbow erythematous, but blanches. No major breakdown noted on exposed body surfaces otherwise. ) Neuro: Other (sedated) Psych/Mental Status: Other (sedated) Results Lab Laboratory Tests 04/20/21 11:20: Glucometer 72 04/20/21 17:38: Glucometer 80 04/20/21 23:18: Glucometer 67L 04/21/21 04:17: White Blood Count 15.9H, Red Blood Count 4.45, Hemoglobin 13.8#, Hematocrit 42, Mean Corpuscular Volume 94, Mean Corpuscular Hemoglobin 31, Mean Corpuscular Hemoglobin Concent 33, Red Cell Distribution Width 14.6H, Platelet Count 260, Mean Platelet Volume 11.4, Immature Granulocyte % (Auto) 2, Neutrophils (%) (Auto) 85H, Lymphocytes (%) (Auto) 8L, Monocytes (%) (Auto) 5, Eosinophils (%) (Auto) 1, Basophils (%) (Auto) 0, Neutrophils # (Auto) 13.5H, Lymphocytes # (Auto) 1.3, Monocytes # (Auto) 0.7, Eosinophils # (Auto) 0.1, Basophils # (Auto) 0.0, Immature Granulocyte # (Auto) 0.2H, Blood Gas Puncture Site RT ARTLINE, Blood Gas Patient Temperature 36.5, Arterial Blood pH 7.41, Arterial Blood Partial Pressure CO2 36, Arterial Blood Partial Pressure O2 59L, Arterial Blood HCO3 22L, Arterial Blood Total CO2 23.5, Arterial Blood Oxygen Saturation 91L, Arterial Blood Base Excess -1.7, Aldo Test ARTLINE, Blood Gas Ventilator Setting YES, Blood Gas Inspired Oxygen 55%, Sodium Level 141, Potassium Level 3.8, Chloride Level 110H, Carbon Dioxide Level 20L, Anion Gap 11, Blood Urea Nitrogen 16, Creatinine 0.64, Estimat Glomerular Filtration Rate 122, BUN/Creatinine Ratio 25, Glucose Level 83, Calcium Level 8.1L, Magnesium Level 2.3 Microbiology 04/13/21 Gram Stain - Final, Complete 04/13/21 Sputum Culture - Final, Complete Usual upper respiratory jack Assessment/Plan Assessment/Plan Assess & Plan/Chief Complaint Acute hypoxic respiratory failure/ARDS -continue ventilatory management -TV 600. FIO2 55%. PEEP 8. RR 18. -PEEP decreased from yesterday COVID-19 PNA -04-21-21 cxray pending -Decadron Probable aspiration PNA -RN's report TF in ETT and coming out of mouth when proned yesterday -new fever to 37.8 centigrade 04-20 -zosyn completed -obtain sputum culture -KUB 04-20 showed nonobstructive appearing bowel gas pattern. -reglan 04-20 Shock -resolved, pressors off -Restart pressor to keep MAP>65 PRN -1/2 NS at 100ml/hr Leukocytosis -WBC 15.9 today. continue to monitor. -likely steroid induced Anemia -hgb 13.8 today, stable -continue to monitor Hypercoagulable state associated with COVID-19 -d dimer on 04-15, 4.31 -eliquis Atrial fibrillation -eliquis GI ppx -protonix Last triglyceride level 04-17, was 171. Repeat as is still on propofol gtt. MAGGIE SHIPMAN DO 04/22/21 0519: Subjective Subjective/Events-last exam Patient still on the vent Hesitantly optimistic that he can be weaned next week Called son Steven for in-depth update Objective Exam General: Other (Sedated and intubated. Critically ill appearing. ) Lungs: Other (Coarse throughout with end expiratory wheezing bilaterally. No crackles heard. ) Heart: Regular Rate Assessment/Plan Assessment/Plan Assess & Plan/Chief Complaint Supportive care Vent management appreciated Updated son Supervisory-Addendum Brief Verification & Attestation Participated in pt care: history, MDM, physical Personally performed: exam, history, MDM, supervision of care Care discussed with: Medical Student Procedures: n/a Results interpretation: Verified all documentation Verification and Attestation of Medical Student E/M Service A medical student performed and documented this service in my presence. I reviewed and verified all information documented by the medical student and made modifications to such information, when appropriate. I personally performed the physical exam and medical decision making. Maggie Shipman, Apr 22, 2021,05:17 BISHOP FRANCES MED STUDENT Apr 21, 2021 07:24 MAGGIE SHIPMAN DO Apr 22, 2021 05:19
[2021-04-21] MEDS: APIXABAN 5 MG (ELIQUIS) TABLET PO SCH ×2 (07:51→20:50)
[2021-04-21] MEDS: PANTOPRAZOLE 40 MG (PROTONIX) VIAL IV SCH (07:51)
--- NOTE | 2021-04-21 07:58 | Physical Therapy Progress Note ---
Therapy Progress Note Patient is currently intubated and sedated. Will monitor and start patient when appropriate. FLASH ALLEN PT Apr 21, 2021 07:58
--- NOTE | 2021-04-21 08:10 | Diagnostic Imaging Report ---
INDICATION: COVID positive, mechanical ventilation. TECHNIQUE: Single view chest 4:07 AM. CORRELATION STUDY: 04/20/2021 FINDINGS: Endotracheal tube tip over the lower trachea above the level of the rose marie. Gastric tube appearing to pass below the left hemidiaphragm. Left upper extremity central line tip not well visualized but likely over the SVC. Heart size and mediastinum generally stable. Extensive bilateral airspace opacities again demonstrated throughout both lungs. Overall appearing slightly increased particularly over the lateral left lung. IMPRESSION: 1. Generally stable appearance about support lines and tubes. 2. Extensive bilateral pulmonary infiltrates overall appearing slightly increased in severity. Report was faxed to [facility]/RN Infection Control by sara at 8:09AM. Dictated by: Dictated on workstation # [id number]
--- NOTE | 2021-04-21 08:58 | Progress Note - Cardiology ---
Cardiology SOAP Progress Note Subjective: Intubated and sedated Objective: I&O/Vital Signs 04/22/21 04/22/21 04/22/21 04/22/21 05:00 05:00 06:00 06:07 Temp 37.5 37.5 Pulse 73 125 61 96 Resp B/P (MAP) 86/59 (68) 96/63 (74) 167/102 Pulse Ox 92 89 94 O2 Delivery Mechanical Ventilator Mechanical Ventilator O2 Flow Rate 50.00 50.00 04/22/21 04/22/21 04/22/21 04/22/21 06:07 06:27 07:00 07:12 Temp 37.6 Pulse 96 82 67 72 B/P (MAP) 167/102 124/77 (93) Pulse Ox 94 94 O2 Delivery Mechanical Ventilator O2 Flow Rate 45.00 FiO2 45 04/22/21 04/22/21 04/22/21 04/22/21 08:00 08:00 09:00 10:00 Temp 37.7 37.7 37.8 Pulse 116 106 98 Resp B/P (MAP) 109/64 (79) 165/83 (110) 122/75 (91) Pulse Ox 95 91 97 99 O2 Delivery Mechanical Ventilator Mechanical Ventilator Mechanical Ventilator Mechanical Ventilator O2 Flow Rate 45.00 45.00 45.00 FiO2 45 04/22/21 04/22/21 04/22/21 04/22/21 10:13 10:22 11:00 12:00 Temp 37.7 37.6 Pulse 72 102 81 58 Resp B/P (MAP) 167/94 83/75 (78) 82/60 (67) Pulse Ox 98 96 99 O2 Delivery Mechanical Ventilator Mechanical Ventilator O2 Flow Rate 45.00 45.00 FiO2 40 04/22/21 04/22/21 04/22/21 04/22/21 12:10 12:11 12:52 13:00 Temp 37.4 Pulse 76 96 Resp B/P (MAP) 137/80 (99) Pulse Ox 98 99 O2 Delivery Mechanical Ventilator Mechanical Ventilator Mechanical Ventilator O2 Flow Rate 35.00 35.00 FiO2 35 04/22/21 04/22/21 04/22/21 04/22/21 14:00 14:14 15:00 15:57 Temp 37.5 37.4 Pulse 89 98 79 Resp 21 30 25 B/P (MAP) 154/83 (106) 125/73 (90) Pulse Ox 98 97 96 O2 Delivery Mechanical Ventilator Mechanical Ventilator O2 Flow Rate 35.00 35.00 FiO2 35 30 04/22/21 04/22/21 16:00 16:19 Temp 37.2 Pulse 111 Resp 10 B/P (MAP) 160/90 (113) Pulse Ox 97 98 O2 Delivery Mechanical Ventilator Mechanical Ventilator O2 Flow Rate 35.00 FiO2 30 04/22/21 00:00 Intake Total 900 ml Output Total 600 ml Balance 300 ml Constitutional: other (Intubated, on mech vent, unable to communicate; I did not physically examine the patient to reduce exposure to COVID-19) Results/Procedures: Labs Laboratory Tests 04/21/21 18:15: Glucometer 126H 04/21/21 23:44: Glucometer 91 04/22/21 04:15: White Blood Count 12.2H, Red Blood Count 4.12L, Hemoglobin 12.7L, Hematocrit 38L , Mean Corpuscular Volume 93, Mean Corpuscular Hemoglobin 31, Mean Corpuscular Hemoglobin Concent 33, Red Cell Distribution Width 14.6H, Platelet Count 286, Mean Platelet Volume 11.1, Immature Granulocyte % (Auto) 2, Neutrophils (%) (Auto) 87H, Lymphocytes (%) (Auto) 5L, Monocytes (%) (Auto) 5, Eosinophils (%) (Auto) 1, Basophils (%) (Auto) 0, Neutrophils # (Auto) 10.6H, Lymphocytes # (Auto) 0.6L, Monocytes # (Auto) 0.6, Eosinophils # (Auto) 0.1, Basophils # (Auto) 0.0, Immature Granulocyte # (Auto) 0.2H, Neutrophils % (Manual) 83, Lymphocytes % (Manual) 6, Monocytes % (Manual) 4, Band Neutrophils 3, Hypersegmented Neutrophils SLIGHT, Atypical Lymphocytes 3, Cindy Cells SLIGHT, Crenated Cell MODERATE, Blood Gas Puncture Site ARTLINE, Blood Gas Patient Temperature 37.5, Arterial Blood pH 7.46H, Arterial Blood Partial Pressure CO2 34L, Arterial Blood Partial Pressure O2 64L, Arterial Blood HCO3 24, Arterial Blood Total CO2 24.5, Arterial Blood Oxygen Saturation 92L, Arterial Blood Base Excess 0.1, Aldo Test POSITIVE, Blood Gas Ventilator Setting YES, Blood Gas Inspired Oxygen 50, Sodium Level 139, Potassium Level 3.9, Chloride Level 109H, Carbon Dioxide Level 20L, Anion Gap 10, Blood Urea Nitrogen 20H, Creatinine 0.64, Estimat Glomerular Filtration Rate 122, BUN/Creatinine Ratio 31, Glucose Level 94, Calcium Level 7.9L, Magnesium Level 2.2 04/22/21 11:22: Glucometer 123H Microbiology 04/13/21 Gram Stain - Final, Complete 04/13/21 Sputum Culture - Final, Complete Usual upper respiratory jack Procedures NAME: LYDIA AQUINO [facility] REC#: [id number] PT STATUS: ADM IN : 1945 PHYSICIAN: NNAMDI KRUSE MD ADMIT DATE: 04/10/21/ICU Signed Date of Exam:04/21/21 CHEST 1 VIEW, AP/PA ONLY INDICATION: COVID positive, mechanical ventilation. TECHNIQUE: Single view chest 4:07 AM. CORRELATION STUDY: 04/20/2021 FINDINGS: Endotracheal tube tip over the lower trachea above the level of the rose marie. Gastric tube appearing to pass below the left hemidiaphragm. Left upper extremity central line tip not well visualized but likely over the SVC. Heart size and mediastinum generally stable. Extensive bilateral airspace opacities again demonstrated throughout both lungs. Overall appearing slightly increased particularly over the lateral left lung. IMPRESSION: 1. Generally stable appearance about support lines and tubes. 2. Extensive bilateral pulmonary infiltrates overall appearing slightly increased in severity. Report was faxed to [facility]/RN Infection Control by jonathon at 8:09AM. Dictated by: Dictated on workstation # [id number] Dict: 04/21/21 [id number] Trans: 04/21/2110 JONATHON [id number] Interpreted by: FRANCHESKA RAGLAND DO Electronically signed by: FRANCHESKA RAGLAND DO 04/21/21 0810 A/P: Assessment: COVID-19 pneumonia progressing to resp failure and requiring mechanical ventilation A Fib of unknown duration (seen on admission on 04/11/21), ventricular rate is w ell-controlled - OAC with Eliquis Plan: * Hospitalist and ICU services are managing COVID-19 and pneumonia and resp failure * Ventricular rate from A Fib continues to remain controlled * Continue anticoag for stroke prophylaxis * Monitor labs * Worsening infiltrates on CXR * Not tolerating tube feedings * Overall prognosis is poor HORTENCIA STA[facility]ORD [facility] Apr 21, 2021 08:58
--- NOTE | 2021-04-21 10:42 | Progress Note - Cardiology ---
Cardiology SOAP Progress Note Subjective: Intubated and on mech vent. Nonresponsive Objective: I&O/Vital Signs 04/20/21 04/21/21 04/21/21 04/21/21 23:00 00:00 00:00 01:00 Temp 36.7 36.7 36.7 Pulse 54 56 58 Resp B/P (MAP) 113/70 (84) 111/67 (82) 117/68 (84) Pulse Ox 92 92 92 91 O2 Delivery Mechanical Ventilator Mechanical Ventilator Mechanical Ventilator Mechanical Ventilator O2 Flow Rate 35.00 35.00 35.00 FiO2 35 04/21/21 04/21/21 04/21/21 04/21/21 01:00 02:00 02:41 02:42 Temp 36.7 Pulse 58 53 61 61 Resp B/P (MAP) 122/72 (89) 108/67 134/81 Pulse Ox 92 O2 Delivery Mechanical Ventilator O2 Flow Rate 35.00 04/21/21 04/21/21 04/21/21 04/21/21 02:54 03:00 04:00 04:00 Temp 36.6 36.5 Pulse 55 65 72 Resp B/P (MAP) 156/93 (114) 133/84 (100) Pulse Ox 92 100 92 90 O2 Delivery Mechanical Ventilator Mechanical Ventilator Mechanical Ventilator O2 Flow Rate 35.00 35.00 FiO2 35 55 04/21/21 04/21/21 04/21/21 04/21/21 04:31 05:00 05:15 06:00 Temp 36.6 36.7 Pulse 90 121 80 Resp B/P (MAP) 121/71 (88) 94/63 (73) Pulse Ox 90 90 92 O2 Delivery Mechanical Ventilator Mechanical Ventilator Mechanical Ventilator O2 Flow Rate 55.00 55.00 55.00 04/21/21 04/21/21 04/21/21 04/21/21 06:16 07:00 07:21 08:00 Temp 36.9 37.1 Pulse 78 81 87 85 Resp B/P (MAP) 90/61 (71) 100/65 (77) Pulse Ox 95 95 96 O2 Delivery Mechanical Ventilator Mechanical Ventilator O2 Flow Rate 55.00 55.00 FiO2 55 04/21/21 04/21/21 04/21/21 08:00 09:00 10:29 Temp 37.2 Pulse 71 103 Resp 25 26 B/P (MAP) 96/63 (74) Pulse Ox 95 95 96 O2 Delivery Mechanical Ventilator Mechanical Ventilator O2 Flow Rate 55.00 FiO2 50 55 04/21/21 00:00 Intake Total 60 ml Output Total 875 ml Balance -815 ml Constitutional: other (Intubated, on mech vent, unable to communicate; I did not physically examine the patient to reduce exposure to COVID-19) Results/Procedures: Labs Laboratory Tests 04/20/21 11:20: Glucometer 72 04/20/21 17:38: Glucometer 80 04/20/21 23:18: Glucometer 67L 04/21/21 04:17: White Blood Count 15.9H, Red Blood Count 4.45, Hemoglobin 13.8#, Hematocrit 42, Mean Corpuscular Volume 94, Mean Corpuscular Hemoglobin 31, Mean Corpuscular Hemoglobin Concent 33, Red Cell Distribution Width 14.6H, Platelet Count 260, Mean Platelet Volume 11.4, Immature Granulocyte % (Auto) 2, Neutrophils (%) (Auto) 85H, Lymphocytes (%) (Auto) 8L, Monocytes (%) (Auto) 5, Eosinophils (%) (Auto) 1, Basophils (%) (Auto) 0, Neutrophils # (Auto) 13.5H, Lymphocytes # (Auto) 1.3, Monocytes # (Auto) 0.7, Eosinophils # (Auto) 0.1, Basophils # (Auto) 0.0, Immature Granulocyte # (Auto) 0.2H, Blood Gas Puncture Site RT ARTLINE, Blood Gas Patient Temperature 36.5, Arterial Blood pH 7.41, Arterial Blood Partial Pressure CO2 36, Arterial Blood Partial Pressure O2 59L, Arterial Blood HCO3 22L, Arterial Blood Total CO2 23.5, Arterial Blood Oxygen Saturation 91L, Arterial Blood Base Excess -1.7, Aldo Test ARTLINE, Blood Gas Ventilator Setting YES, Blood Gas Inspired Oxygen 55%, Sodium Level 141, Potassium Level 3.8, Chloride Level 110H, Carbon Dioxide Level 20L, Anion Gap 11, Blood Urea Nitrogen 16, Creatinine 0.64, Estimat Glomerular Filtration Rate 122, BUN/Creatinine Ratio 25, Glucose Level 83, Calcium Level 8.1L, Magnesium Level 2.3 Microbiology 04/13/21 Gram Stain - Final, Complete 04/13/21 Sputum Culture - Final, Complete Usual upper respiratory jack Laboratory Tests 04/20/21 02:05 04/21/21 04:17 A/P: Assessment: COVID-19 pneumonia progressing to resp failure and requiring mechanical ventilation A Fib of unknown duration (seen on admission on 04/11/21), ventricular rate is well-controlled - OAC with Eliquis Plan: * Cardiac status is essentially unchanged * Hospitalist and ICU services are managing COVID-19 and pneumonia and resp failure * Ventricular rate from A Fib continues to remain controlled * Continue anticoag for stroke prophylaxis * Monitor labs * Worsening infiltrates on CXR * Overall prognosis appears poor RONNIE RAMIREZ MD FACP FAC CCDS Apr 21, 2021 10:42
--- NOTE | 2021-04-21 10:53 | Tele-ICU Progress Note ---
Subjective Date Seen by a Provider: Apr 21, 2021 Time Seen by a Provider: 09:43 Sepsis Event Evaluation Height, Weight, BMI Height: '" Weight: lbs. oz. kg; 21.43 BMI Method: Exam Exam Patient acknowledged, consented, and participated in this virtual visit which was conducted using real time audio/video Vital Signs Date Time Temp Pulse Resp B/P (MAP) Pulse Ox O2 Delivery O2 Flow Rate FiO2 04/21/21 10:29 103 26 96 55 04/21/21 09:00 37.2 71 25 96/63 (74) 95 Mechanical Ventilator 55.00 04/21/21 08:00 95 Mechanical Ventilator 50 04/21/21 08:00 37.1 85 26 100/65 (77) 96 Mechanical Ventilator 55.00 04/21/21 07:21 87 26 95 55 04/21/21 07:00 36.9 81 26 90/61 (71) 95 Mechanical Ventilator 55.00 04/21/21 06:16 78 04/21/21 06:00 36.7 80 30 94/63 (73) 92 Mechanical Ventilator 55.00 04/21/21 05:15 121 26 90 04/21/21 05:00 36.6 90 26 121/71 (88) 90 Mechanical Ventilator 55.00 04/21/21 04:31 Mechanical Ventilator 55.00 04/21/21 04:00 90 Mechanical Ventilator 55 04/21/21 04:00 36.5 72 22 133/84 (100) 92 Mechanical Ventilator 35.00 04/21/21 03:00 36.6 65 26 156/93 (114) 100 Mechanical Ventilator 35.00 04/21/21 02:54 55 26 92 35 04/21/21 02:42 61 134/81 04/21/21 02:41 61 108/67 04/21/21 02:00 36.7 53 25 122/72 (89) 92 Mechanical Ventilator 35.00 04/21/21 01:00 58 04/21/21 01:00 36.7 58 25 117/68 (84) 91 Mechanical Ventilator 35.00 04/21/21 00:00 92 Mechanical Ventilator 35 04/21/21 00:00 36.7 56 26 111/67 (82) 92 Mechanical Ventilator 35.00 04/20/21 23:00 36.7 54 25 113/70 (84) 92 Mechanical Ventilator 35.00 04/20/21 22:23 55 26 92 35 04/20/21 22:00 36.8 54 26 124/68 (86) 92 Mechanical Ventilator 35.00 04/20/21 21:00 36.8 49 26 110/62 (78) 92 Mechanical Ventilator 35.00 04/20/21 20:00 93 Mechanical Ventilator 35 04/20/21 20:00 36.8 49 26 120/69 (86) 92 Mechanical Ventilator 35.00 04/20/21 19:00 36.8 67 25 119/67 (84) 93 Mechanical Ventilator 35.00 04/20/21 19:00 67 04/20/21 18:45 68 26 96 35 04/20/21 18:00 36.8 52 25 124/64 (84) 93 Mechanical Ventilator 40.00 04/20/21 17:00 36.9 54 26 118/68 (85) 96 Mechanical Ventilator 40.00 04/20/21 16:00 37.0 61 25 120/67 (84) 95 Mechanical Ventilator 40.00 04/20/21 15:43 95 Mechanical Ventilator 40 04/20/21 15:30 Mechanical Ventilator 40.00 04/20/21 15:00 37.2 60 26 122/68 (86) 94 Mechanical Ventilator 50.00 04/20/21 14:21 40 04/20/21 14:17 68 26 96 50 04/20/21 14:00 37.3 68 26 126/72 (90) 95 Mechanical Ventilator 50.00 04/20/21 13:00 37.5 80 25 135/72 (93) 96 Mechanical Ventilator 50.00 04/20/21 13:00 66 04/20/21 12:00 37.7 86 25 121/72 (88) 96 Mechanical Ventilator 50.00 04/20/21 12:00 96 Mechanical Ventilator 50 04/20/21 11:37 90 104/66 04/20/21 11:36 90 104/66 04/20/21 11:00 37.8 89 22 149/79 (102) 97 Mechanical Ventilator 50.00 I & O 04/21/21 07:00 Intake Total 2060 ml Output Total 2150 ml Balance -90 ml Height & Weight Height: '" Weight: lbs. oz. kg; 21.43 BMI Method: General Appearance: No Apparent Distress, WD/WN, Chronically ill, Other (Sedated and intubated) HEENT: PERRL/EOMI, Pharynx Normal Respiratory: No Accessory Muscle Use, No Respiratory Distress, Decreased Breath Sounds Cardiovascular: Regular Rate, Rhythm Capillary Refill: Less Than 3 Seconds Peripheral Pulses: 1+ Dorsalis Pedis (R), 1+ Left Dors-Pedis (L) (see free text) Gastrointestinal: soft, no organomegaly Extremity: Normal Capillary Refill Neurologic/Psychiatric: Alert, Oriented x3 Skin: Normal Color, Warm/Dry Results Lab Laboratory Tests 04/20/21 02:05 04/21/21 04:17 Assessment/Plan Assessment/Plan (Tele-ICU Physician , Progress Note ) Available chart/ vitals / labs / Images reviewed Video assessment done using teleICU camera, rest of exam as per RN Discussed with RN , EXAM PER RN Events overnight : FEBRILE 38 I/O = neg 1500 Drips: 1/2 ns Pressors: off 04/19 hemodynamically stable Sedation gtt: ( RASS -3 ) propofol 30 . fentanyl 150 VENT SETTINGS and ABG reviewed Not candidate for SBT today Contraindications: Sedation Score Consultants: cards Hospital course: 04/11 - Vapotherm at 35 L and 85% 04/13 = to ICU , BiPAP 16/10 100% -> failed -> INTUBATED , peep 16 100% 04/14 - lisa/vaso , WBC 32 , AC 28 550 +12 55% 04/15 - hb ? 8.4 70 % +8 04/19 - AC 26 600 +16 70 % 04/20- AC 26 600 +12 50 % , NEW FEVER , possible aspiration , OFF pressors A/P AHRF / ARDS due to severe COVID19 -intubated 04/13 - AC 26 600 +8 55 % - Fio2 and cxr ( on left ) improving - ONLY 35% WHEN PRONED -proneded 04/19 ->> - sedation vaction 04/20 - agitated , moved all extremities , HTN and elv HR - does not follow commands - WILL TRY VERSED PRN Shock - probly sepsis - OFF vasopressors -04/20 BONL-[id number]-0/COVID-19 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 , Dx 3 weeks [employer] - he took Ivermectin ) -Steroids IV - started 04/12 -Hypercoagulable state , DDIMER > 20 on 04/10 -> on Eliquis - > changed to lovenox after intubation - > back to eliquis 04/17 ( no evidence of large PE on CT 04/10 ) Suspected superimposed bact PNA ( week 3 of covid , leginella ab neg ) -empiric ceftriaxone 04/11 -> zosyn 04/16 -> Cx sputum 04/13 post intubation - usual jack -NEW FEVER 04/20 - suspected aspiration even t 04/20 Anemia - stable - will change PPI back to qd 04/19 A Fib of unknown duration (seen on admission on 04/11/21) - cards consulted - rate controlled CODE Status - FULL , as per notes on H&P : " He would be ok with being on the ventilator if needed. When asked about code status, he says, "Just try for one round and then let me go." Lines : Left femrol line 04/13 (Central Line Necessity Reviewed) Trotter: 04/13 OG: + Nutrition: TF - 04/20 - REglan ( KUB , WNL ) TOLERATES TF 04/21 Analgesia: Anxiety/ delirium VTE Prophylaxis: eliquis Stress Ulcer Prophylaxis: PO Glycemic Control: Plans in collaboration with bedside consultants and IM MDs. Discussed with RN to reach out if any questions or concerns A total of 36minutes of critical care time was devoted to this patient today, required to treat and/or prevent further deterioration of critical care condition ( as above) . NNAMDI KRUSE MD Apr 21, 2021 10:53
[2021-04-21] MEDS: AtorvaSTATin TABLET 10 MG TABLET PO SCH (20:50)
[2021-04-22] VITALS (30 sets, daily range): BP systolic 82–191; BP diastolic 57–102
[2021-04-22] MEDS: CISATRACURIUM DRIP 250 ML IV SCH ×4 (00:38→17:21)
[2021-04-22] MEDS: RT-ALBUTEROL HFA 8.5 GM INHALER IH SCH ×6 (02:43→22:11)
[2021-04-22] MEDS: 1/2 NS IV SOLUTION 1,000 ML IV SCH ×2 (04:15→23:44)
[2021-04-22 04:32] LABS: BASOPHILS % (AUTO) 0 % (0-10); EOSINOPHILS # (AUTO) 0.1 10^3/uL (0.0-0.3); EOSINOPHILS % (AUTO) 1 % (0-10); HEMATOCRIT 38 % (40-54); HEMOGLOBIN 12.7 g/dL (13.3-17.7); LYMPHOCYTES # (AUTO) 0.6 10^3/uL (1.0-4.0); LYMPHOCYTES % (AUTO) 5 % (12-44); MEAN CORPUSCULAR HEMOGLOBIN 31 pg (25-34); MEAN CORPUSCULAR HGB CONC 33 g/dL (32-36); MEAN CORPUSCULAR VOLUME 93 fL (80-99); MEAN PLATELET VOLUME 11.1 fL (9.0-12.2); MONOCYTES # (AUTO) 0.6 10^3/uL (0.0-1.0); MONOCYTES % (AUTO) 5 % (0-12); NEUTROPHILS # (AUTO) 10.6 10^3/uL (1.8-7.8); NEUTROPHILS % (AUTO) 87 % (42-75); PLATELET COUNT 286 10^3/uL (130-400); WHITE BLOOD COUNT 12.2 10^3/uL (4.3-11.0)
[2021-04-22 04:33] LABS: ABG BASE EXCESS 0.1 MMOL/L (-2.5-2.5); ABG OXYGEN SATURATION 92 % (94-100); ABG PCO2 34 MMHG (35-45); ABG PH 7.46 (7.37-7.43); ABG PO2 64 MMHG (79-93); ABG TCO2 24.5 MMOL/L (21.0-31.0)
[2021-04-22 04:35] LABS: ALLENS TEST POSITIVE; INSPIRED O2 50; PATIENT TEMP 37.5; VENTILATOR YES
[2021-04-22 04:52] LABS: CALCIUM 7.9 MG/DL (8.5-10.1); CREATININE SERUM 0.64 MG/DL (0.60-1.30); MAGNESIUM 2.2 MG/DL (1.6-2.4); POTASSIUM 3.9 MMOL/L (3.6-5.0)
[2021-04-22 04:55] LABS: ATYPICAL LYMPHOCYTES 3 %; BAND NEUTROPHILS 3 %; LYMPHOCYTES % (MANUAL) 6 %; MONOCYTES % (MANUAL) 4 %; NEUTROPHILS % (MANUAL) 83 %
[2021-04-22 04:56] LABS: BURR CELLS SLIGHT; CRENATED RBC MODERATE; HYPERSEGMENTED NEUT SLIGHT
[2021-04-22] MEDS: POTASSIUM CL 10MEQ/50ML IVPB 50 ML IV SCH (04:57)
[2021-04-22] MEDS: inSUlin ASPART (NovoLOG) 1 UNIT/0.01 ML (CHARGE PER UNIT) SQ SCH ×4 (04:58→23:46)
[2021-04-22] MEDS: KCL 20 MEQ TAB (K-DUR) PO SCH (04:58)
[2021-04-22] MEDS: MAGNESIUM 1 GM/100 ML IVPB 100 ML IV SCH (04:58)
[2021-04-22] MEDS: METOCLOPRAMIDE INJ 10 MG/2 ML (REGLAN) IVP SCH ×4 (06:06→23:43)
[2021-04-22] MEDS: PROPOFOL DRIP (ICU) 100 ML IV SCH (06:07)
--- NOTE | 2021-04-22 06:51 | Occ Therapy Progress Note ---
Therapy Progress Note Pt currently intubated. OT will continue to monitor pt status and initiate treatment when pt is medically stable and able to actively participate in skilled therapy. MICHI AMAYA Apr 22, 2021 06:51
--- NOTE | 2021-04-22 07:20 | Progress Note ---
BISHOP FRANCES MED STUDENT 04/22/21 0720: Subjective Date Seen by a Provider: Apr 22, 2021 Time Seen by a Provider: 06:40 Subjective/Events-last exam Remains sedated and intubated. Vitals stable overnight. RN reports that upon doing sedation vacation this am he became hypertensive and tachycardic again and was opening eye but not following commands. Review of Systems General: Other (unobtainable) HEENT: Other (unobtainable) Pulmonary: Other (unobtainable) Cardiovascular: Other (unobtainable) Gastrointestinal: Other (unobtainable) Genitourinary: Other (unobtainable) Musculoskeletal: other (unobtainable) Neurological: Other (unobtainable) Objective Exam Last Set of Vital Signs Vital Signs Date Time Temp Pulse Resp B/P (MAP) Pulse Ox O2 Delivery O2 Flow Rate FiO2 04/22/21 06:07 96 167/102 04/22/21 06:00 37.5 25 94 Mechanical Ventilator 50.00 04/22/21 04:00 50 Capillary Refill : Less Than 3 Seconds I&O Intake and Output 04/22/21 00:00 Intake Total 2990 ml Output Total 1850 ml Balance 1140 ml Intake Oral 0 ml IV Total 1940 ml Tube Feeding 1050 ml Output Urine Total 1850 ml General: Other (Sedated and intubated) HEENT: Atraumatic, Other (Endotracheal tube in place. OGT in place. Pupils 3mm bilaterally and react briskly. ) Neck: Supple, No LAD Lungs: Other (Coarse throughout. Wheezing throughout. ) Heart: No Murmurs, Other (Irregularrly irregular upon auscultation. Afib per bedside monitor. ) Abdomen: Normal Bowel Sounds, Soft Extremities: No Clubbing, No Cyanosis, No Edema, Normal Pulses Skin: No Rashes, No Significant Lesion, Other (Left periorbital superficial breakdown, related to proning per RN. No drainage or erythema. ) Neuro: Other (sedated) Psych/Mental Status: Other (sedated) Results Lab Laboratory Tests 04/21/21 10:52: Glucometer 95 04/21/21 18:15: Glucometer 126H 04/21/21 23:44: Glucometer 91 04/22/21 04:15: White Blood Count 12.2H, Red Blood Count 4.12L, Hemoglobin 12.7L, Hematocrit 38L , Mean Corpuscular Volume 93, Mean Corpuscular Hemoglobin 31, Mean Corpuscular Hemoglobin Concent 33, Red Cell Distribution Width 14.6H, Platelet Count 286, Mean Platelet Volume 11.1, Immature Granulocyte % (Auto) 2, Neutrophils (%) (Auto) 87H, Lymphocytes (%) (Auto) 5L, Monocytes (%) (Auto) 5, Eosinophils (%) (Auto) 1, Basophils (%) (Auto) 0, Neutrophils # (Auto) 10.6H, Lymphocytes # (A uto) 0.6L, Monocytes # (Auto) 0.6, Eosinophils # (Auto) 0.1, Basophils # (Auto) 0.0, Immature Granulocyte # (Auto) 0.2H, Neutrophils % (Manual) 83, Lymphocytes % (Manual) 6, Monocytes % (Manual) 4, Band Neutrophils 3, Hypersegmented Neutrophils SLIGHT, Atypical Lymphocytes 3, [place] Cells SLIGHT, Crenated Cell MODERATE, Blood Gas Puncture Site ARTLINE, Blood Gas Patient Temperature 37.5, Arterial Blood pH 7.46H, Arterial Blood Partial Pressure CO2 34L, Arterial Blood Partial Pressure O2 64L, Arterial Blood HCO3 24, Arterial Blood Total CO2 24.5, Arterial Blood Oxygen Saturation 92L, Arterial Blood Base Excess 0.1, Aldo Test POSITIVE, Blood Gas Ventilator Setting YES, Blood Gas Inspired Oxygen 50, Sodium Level 139, Potassium Level 3.9, Chloride Level 109H, Carbon Dioxide Level 20L, Anion Gap 10, Blood Urea Nitrogen 20H, Creatinine 0.64, Estimat Glomerular Filtration Rate 122, BUN/Creatinine Ratio 31, Glucose Level 94, Calcium Level 7.9L, Magnesium Level 2.2 Microbiology 04/13/21 Gram Stain - Final, Complete 04/13/21 Sputum Culture - Final, Complete Usual upper respiratory jack Assessment/Plan Assessment/Plan Assess & Plan/Chief Complaint Acute hypoxic respiratory failure/ARDS -continue ventilatory management -TV 600. FIO2 50%. PEEP 8. RR 26. - continue to wean as tolerated -stop propofol, add precedex today COVID-19 PNA -04-21-21 cxray Extensive bilateral pulmonary infiltrates overall appearing slightly increased in severity. -Decadron Probable aspiration PNA -RN's report TF in ETT and coming out of mouth when proned 04-20 -new fever to 37.8 centigrade 9-14 -s/p zosyn -sputum culture -reglan 04-20 Shock -resolved, pressors off -Restart pressor to keep MAP>65 PRN -1/2 NS at 50ml/hr Leukocytosis -procalcitonin tomorrow -blood culture off PICC line today -WBC 12.7 today. continue to monitor. -likely steroid induced Anemia -hgb 12.7 today, stable -continue to monitor Hypercoagulable state associated with COVID-19 -d dimer on 04-15, 4.31 -eliquis Atrial fibrillation -eliquis GI ppx -protonix CT chest ordered for today MAGGIE SHIPMAN DO 04/23/21 1140: Subjective Subjective/Events-last exam Patient remains intubated Course presents noted We will monitor closely We will update son periodically Objective Exam General: Other (Sedated and intubated) Heart: Other (Irregularrly irregular upon auscultation. Afib per bedside monitor. ) Assessment/Plan Assessment/Plan Assess & Plan/Chief Complaint Check CT Aspiration risk Pleural effusion noted Supervisory-Addendum Brief Verification & Attestation Participated in pt care: history, MDM, physical Personally performed: exam, history, MDM, supervision of care Care discussed with: Medical Student Procedures: n/a Results interpretation: Verified all documentation Verification and Attestation of Medical Student E/M Service A medical student performed and documented this service in my presence. I reviewed and verified all information documented by the medical student and made modifications to such information, when appropriate. I personally performed the physical exam and medical decision making. Maggie Shipman, Apr 23, 2021,11:40 BISHOP FRANCES MED STUDENT Apr 22, 2021 07:20 MAGGIE SHIPMAN DO Apr 23, 2021 11:40
--- NOTE | 2021-04-22 07:45 | Physical Therapy Progress Note ---
Therapy Progress Note Patient currently sedated and intubated. PT will continue to monitor patient status. MINE MONTANEZ PT Apr 22, 2021 07:45
[2021-04-22] MEDS: PANTOPRAZOLE 40 MG (PROTONIX) VIAL IV SCH (08:01)
[2021-04-22] MEDS: APIXABAN 5 MG (ELIQUIS) TABLET PO SCH ×2 (08:01→20:49)
[2021-04-22] MEDS: fentaNYL DRIP PRE-MIX 250 ML IV SCH (08:07)
[2021-04-22] MEDS: MIDAZOLAM 2 MG/2 ML (VERSED) VIAL IVP PRN ×4 (08:10→23:43)
--- NOTE | 2021-04-22 09:54 | Tele-ICU Progress Note ---
Subjective Date Seen by a Provider: Apr 22, 2021 Time Seen by a Provider: 09:54 Sepsis Event Evaluation Height, Weight, BMI Height: '" Weight: lbs. oz. kg; 21.43 BMI Method: Exam Exam Patient acknowledged, consented, and participated in this virtual visit which was conducted using real time audio/video Vital Signs Date Time Temp Pulse Resp B/P (MAP) Pulse Ox O2 Delivery O2 Flow Rate FiO2 04/22/21 07:12 72 26 94 45 04/22/21 06:27 82 04/22/21 06:07 96 167/102 04/22/21 06:07 96 167/102 04/22/21 06:00 37.5 61 25 96/63 (74) 94 Mechanical Ventilator 50.00 04/22/21 05:00 125 26 89 04/22/21 05:00 37.5 73 25 86/59 (68) 92 Mechanical Ventilator 50.00 04/22/21 04:00 37.4 86 25 147/83 (104) 92 Mechanical Ventilator 50.00 04/22/21 04:00 95 Mechanical Ventilator 50 04/22/21 03:00 37.3 74 25 145/80 (101) 91 Mechanical Ventilator 50.00 04/22/21 02:43 96 26 93 55 04/22/21 02:00 37.1 83 26 158/89 (112) 94 Mechanical Ventilator 50.00 04/22/21 01:23 Mechanical Ventilator 50.00 04/22/21 01:00 37.1 66 25 94/57 (69) 93 Mechanical Ventilator 55.00 04/22/21 01:00 66 04/22/21 00:00 95 Mechanical Ventilator 55 04/22/21 00:00 37.1 63 25 86/60 (69) 94 Mechanical Ventilator 55.00 04/21/21 23:00 37.1 58 26 91/73 (79) 94 Mechanical Ventilator 55.00 04/21/21 22:38 63 26 99 55 04/21/21 22:00 37.2 63 26 79/53 (62) 93 Mechanical Ventilator 55.00 04/21/21 21:00 37.3 64 26 105/69 (81) 95 Mechanical Ventilator 55.00 04/21/21 20:00 95 Mechanical Ventilator 50 04/21/21 20:00 37.3 76 25 103/65 (78) 95 Mechanical Ventilator 55.00 04/21/21 19:02 84 26 98 55 04/21/21 19:00 96 04/21/21 19:00 37.3 96 21 142/83 (102) 95 Mechanical Ventilator 55.00 04/21/21 18:00 37.3 73 26 84/57 (66) 92 Mechanical Ventilator 55.00 04/21/21 17:00 37.4 92 25 115/64 (81) 95 Mechanical Ventilator 55.00 04/21/21 16:10 95 Mechanical Ventilator 50 04/21/21 16:00 37.2 90 25 116/65 (82) 97 Mechanical Ventilator 55.00 04/21/21 15:00 37.2 78 26 107/73 (84) 96 Mechanical Ventilator 55.00 04/21/21 14:17 81 26 96 55 04/21/21 14:14 72 87/61 04/21/21 14:13 72 87/61 04/21/21 14:00 37.4 72 25 87/61 (70) 95 Mechanical Ventilator 55.00 04/21/21 13:00 37.5 93 26 125/74 (91) 97 Mechanical Ventilator 55.00 04/21/21 12:57 97 04/21/21 12:00 96 Mechanical Ventilator 50 04/21/21 12:00 37.6 90 26 94/60 (71) 95 Mechanical Ventilator 55.00 04/21/21 11:00 37.4 96 25 95/62 (73) 97 Mechanical Ventilator 55.00 04/21/21 10:29 103 26 96 55 04/21/21 10:00 37.4 86 25 101/60 (74) 94 Mechanical Ventilator 55.00 I & O 04/22/21 07:00 Intake Total 1690 ml Output Total 1490 ml Balance 200 ml Height & Weight Height: '" Weight: lbs. oz. kg; 21.43 BMI Method: General Appearance: No Apparent Distress, WD/WN, Chronically ill, Other (Edwina mila and intubated) HEENT: PERRL/EOMI, Pharynx Normal Respiratory: No Accessory Muscle Use, No Respiratory Distress, Decreased Breath Sounds Cardiovascular: Regular Rate, Rhythm Capillary Refill: Less Than 3 Seconds Peripheral Pulses: 1+ Dorsalis Pedis (R), 1+ Left Dors-Pedis (L) (see free text) Gastrointestinal: soft, no organomegaly Extremity: Normal Capillary Refill Neurologic/Psychiatric: Alert, Oriented x3 Skin: Normal Color, Warm/Dry Results Lab Laboratory Tests 04/21/21 04:17 04/22/21 04:15 Assessment/Plan Assessment/Plan (Tele-ICU Physician , Progress Note ) Available chart/ vitals / labs / Images reviewed Video assessment done using teleICU camera, rest of exam as per RN Discussed with RN , EXAM PER RN Events overnight : FEBRILE 37.5 I/O = pos 1500 Drips: 1/2 ns Pressors: off 04/19 hemodynamically stable Sedation gtt: ( RASS -3 ) propofol 30 . fentanyl 150 VENT SETTINGS and ABG reviewed Not candidate for SBT today Contraindications: Sedation Score Consultants: arjun Hospital course: 04/11 - Vapotherm at 35 L and 85% 04/13 = to ICU , BiPAP 22/05 100% -> failed -> INTUBATED , peep 16 100% 04/14 - lisa/vaso , WBC 32 , AC 28 550 +12 55% 04/15 - hb ? 8.4 70 % +8 04/19 - AC 26 600 +16 70 % 04/20- AC 26 600 +12 50 % , NEW FEVER , possible aspiration , OFF pressors A/P AHRF / ARDS due to severe COVID19 -intubated 04/13 - AC 26 600 +8 55 % - Fio2 and cxr ( on left ) improving - ONLY 35% WHEN PRONED -proneded 04/19 ->>04/21 - stop IVF - sedation vaction 04/20 - agitated , moved all extremities , HTN and elv HR - does not follow commands - WILL TRY VERSED PRN AND PRECEDEX ( no ny more bradycardia for 2 days Shock - probly sepsis - OFF vasopressors -04/20 [id number]-[id number]-6/COVID-19 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 , Dx 3 weeks [employer] - he took Ivermectin ) -Steroids IV - started 04/12- TAPERING 04/22 -Hypercoagulable state , DDIMER > 20 on 04/10 -> eliquis ( no evidence of large PE on CT 04/10 ) Suspected superimposed bact PNA ( week 3 of covid , legionella ab neg ) -empiric ceftriaxone 04/11 Cx sputum 04/13 post intubation - usual jack -NEW FEVER 04/20 - suspected aspiration even 04/20 -> was already on zosyn 04/16 ->04/21 STILL FEBRILE , WILL CHECK PCT AND LINE CX , CT CHEST - ? empyema , abscess Anemia - stable - will change PPI back to qd 04/19 A Fib of unknown duration (seen on admission on 04/11/21) - cards consulted - rate controlled CODE Status - FULL , as per notes on H&P : " He would be ok with being on the ventilator if needed. When asked about code status, he says, "Just try for one round and then let me go." Lines : Left femrol line 04/13 removed 04/14 . PICC 04/14 (Central Line Necessity Reviewed) Trotter: 04/13 OG: + Nutrition: TF - 04/20 - REglan ( KUB , WNL ) TOLERATES TF 04/21 Analgesia: Anxiety/ delirium VTE Prophylaxis: eliquis Stress Ulcer Prophylaxis: PO Glycemic Control: Plans in collaboration with bedside consultants and IM MDs. Discussed with RN to reach out if any questions or concerns A total of 40 minutes of critical care time was devoted to this patient today, required to treat and/or prevent further deterioration of critical care condition ( as above) . NNAMDI KRUSE MD Apr 22, 2021 09:54
[2021-04-22] MEDS: DexMEDEtomidine 250 ML DRIP 250 ML IV SCH (10:13)
--- NOTE | 2021-04-22 13:19 | Progress Note - Cardiology ---
Cardiology SOAP Progress Note Subjective: Intubated. On [facility] vent. Not able to communicate Objective: I&O/Vital Signs 04/22/21 04/22/21 04/22/21 04/22/21 01:23 02:00 02:43 03:00 Temp 37.1 37.3 Pulse 83 96 74 Resp B/P (MAP) 158/89 (112) 145/80 (101) Pulse Ox 94 93 91 O2 Delivery Mechanical Ventilator Mechanical Ventilator Mechanical Ventilator O2 Flow Rate 50.00 50.00 50.00 FiO2 55 04/22/21 04/22/21 04/22/21 04/22/21 04:00 04:00 05:00 05:00 Temp 37.4 37.5 Pulse 86 73 125 Resp B/P (MAP) 147/83 (104) 86/59 (68) Pulse Ox 95 92 92 89 O2 Delivery Mechanical Ventilator Mechanical Ventilator Mechanical Ventilator O2 Flow Rate 50.00 50.00 FiO2 50 04/22/21 04/22/21 04/22/21 04/22/21 06:00 06:07 06:07 06:27 Temp 37.5 Pulse 61 96 96 82 Resp B/P (MAP) 96/63 (74) 167/102 167/102 Pulse Ox 94 O2 Delivery Mechanical Ventilator O2 Flow Rate 50.00 04/22/21 04/22/21 04/22/21 04/22/21 07:00 07:12 08:00 08:00 Temp 37.6 37.7 Pulse 67 72 116 Resp B/P (MAP) 124/77 (93) 109/64 (79) Pulse Ox 94 94 95 91 O2 Delivery Mechanical Ventilator Mechanical Ventilator Mechanical Ventilator O2 Flow Rate 45.00 45.00 FiO2 45 45 04/22/21 04/22/21 04/22/21 04/22/21 09:00 10:00 10:13 10:22 Temp 37.7 37.8 Pulse 106 98 72 102 Resp B/P (MAP) 165/83 (110) 122/75 (91) 167/94 Pulse Ox 97 99 98 O2 Delivery Mechanical Ventilator Mechanical Ventilator O2 Flow Rate 45.00 45.00 FiO2 40 04/22/21 04/22/21 04/22/21 04/22/21 11:00 12:00 12:10 12:11 Temp 37.7 37.6 Pulse 81 58 Resp 25 25 B/P (MAP) 83/75 (78) 82/60 (67) Pulse Ox 96 99 98 O2 Delivery Mechanical Ventilator Mechanical Ventilator Mechanical Ventilator Mechanical Ventilator O2 Flow Rate 45.00 45.00 35.00 FiO2 35 04/22/21 00:00 Intake Total 900 ml Output Total 600 ml Balance 300 ml Constitutional: other (Intubated, on mech vent, unable to communicate; I did not physically examine the patient to reduce exposure to COVID-19) Results/Procedures: Labs Laboratory Tests 04/21/21 18:15: Glucometer 126H 04/21/21 23:44: Glucometer 91 04/22/21 04:15: White Blood Count 12.2H, Red Blood Count 4.12L, Hemoglobin 12.7L, Hematocrit 38L , Mean Corpuscular Volume 93, Mean Corpuscular Hemoglobin 31, Mean Corpuscular Hemoglobin Concent 33, Red Cell Distribution Width 14.6H, Platelet Count 286, Mean Platelet Volume 11.1, Immature Granulocyte % (Auto) 2, Neutrophils (%) (Auto) 87H, Lymphocytes (%) (Auto) 5L, Monocytes (%) (Auto) 5, Eosinophils (%) (Auto) 1, Basophils (%) (Auto) 0, Neutrophils # (Auto) 10.6H, Lymphocytes # (Auto) 0.6L, Monocytes # (Auto) 0.6, Eosinophils # (Auto) 0.1, Basophils # (Auto) 0.0, Immature Granulocyte # (Auto) 0.2H, Neutrophils % (Manual) 83, Lymphocytes % (Manual) 6, Monocytes % (Manual) 4, Band Neutrophils 3, Hypersegmented Neutrophils SLIGHT, Atypical Lymphocytes 3, Cindy Cells SLIGHT, Crenated Cell MODERATE, Blood Gas Puncture Site ARTLINE, Blood Gas Patient Temperature 37.5, Arterial Blood pH 7.46H, Arterial Blood Partial Pressure CO2 34L, Arterial Blood Partial Pressure O2 64L, Arterial Blood HCO3 24, Arterial Blood Total CO2 24.5, Arterial Blood Oxygen Saturation 92L, Arterial Blood Base Excess 0.1, Aldo Test POSITIVE, Blood Gas Ventilator Setting YES, Blood Gas Inspired Oxygen 50, Sodium Level 139, Potassium Level 3.9, Chloride Level 109H, Carbon Dioxide Level 20L, Anion Gap 10, Blood Urea Nitrogen 20H, Creatinine 0.64, Estimat Glomerular Filtration Rate 122, BUN/Creatinine Ratio 31, Glucose Level 94, Calcium Level 7.9L, Magnesium Level 2.2 04/22/21 11:22: Glucometer 123H Microbiology 04/13/21 Gram Stain - Final, Complete 04/13/21 Sputum Culture - Final, Complete Usual upper respiratory jack Laboratory Tests 04/21/21 04:17 04/22/21 04:15 A/P: Assessment: COVID-19 pneumonia progressing to resp failure and requiring mechanical ventilation A Fib of unknown duration (seen on admission on 04/11/21), ventricular rate is well-controlled - OAC with Eliquis Plan: * Cardiac status is essentially unchanged * Hospitalist and ICU services are managing COVID-19 and pneumonia and resp failure * Ventricular rate from A Fib continues to remain controlled * Continue anticoag for stroke prophylaxis * Monitor labs RONNIE RAMIREZ MD FACP [facility] Apr 22, 2021 13:19
--- NOTE | 2021-04-22 15:41 | Diagnostic Imaging Report ---
EXAMINATION: CT chest without contrast. TECHNIQUE: Multiple contiguous axial images were obtained through the chest without the use of intravenous contrast. All CT scans use one or more of the following dose optimizing techniques: automated exposure control, MA and/or KvP adjustment based on patient size and exam type or iterative reconstruction. HISTORY: COVID-19. COMPARISON: 04/10/2021. FINDINGS: Previously seen groundglass has evolved into consolidation that is mostly peripheral. Overall, the degree of lung involvement has slightly decreased but the severity remains moderate. There are new moderate bilateral pleural effusions. No pneumothorax. There is no axillary or supraclavicular lymphadenopathy. There is no mediastinal lymphadenopathy. Heart size is normal. There are moderate coronary artery calcifications. No pericardial effusion. Aorta is normal in caliber. Patient is intubated and a gastric tube is present. There is a left-sided peripherally inserted central catheter with the tip in the superior vena cava. Limited views of the upper abdomen are unremarkable. There is diffuse body wall edema. There are no suspicious osseous lesions. IMPRESSION: 1. Evolution of previously seen COVID-19 pneumonia which is now comprised mostly of peripheral consolidation which remains moderate in severity. 2. New moderate bilateral pleural effusions and diffuse body wall edema. Dictated by: Dictated on workstation # [id number]
[2021-04-22] MEDS: AtorvaSTATin TABLET 10 MG TABLET PO SCH (20:49)
[2021-04-23] VITALS (30 sets, daily range): BP systolic 74–189; BP diastolic 50–91
[2021-04-23] MEDS: CISATRACURIUM DRIP 250 ML IV SCH ×4 (01:05→19:33)
[2021-04-23] MEDS: RT-ALBUTEROL HFA 8.5 GM INHALER IH SCH ×6 (02:06→22:29)
[2021-04-23 03:35] LABS: ABG BASE EXCESS -0.4 MMOL/L (-2.5-2.5); ABG OXYGEN SATURATION 89 % (94-100); ABG PCO2 28 MMHG (35-45); ABG PH 7.51 (7.37-7.43); ABG PO2 53 MMHG (79-93)
[2021-04-23 03:36] LABS: ALLENS TEST ART LINE; BASOPHILS % (AUTO) 0 % (0-10); EOSINOPHILS % (AUTO) 0 % (0-10); HEMATOCRIT 35 % (40-54); HEMOGLOBIN 11.7 g/dL (13.3-17.7); INSPIRED O2 30%; LYMPHOCYTES # (AUTO) 0.6 10^3/uL (1.0-4.0); LYMPHOCYTES % (AUTO) 6 % (12-44); MEAN CORPUSCULAR HEMOGLOBIN 31 pg (25-34); MEAN CORPUSCULAR HGB CONC 34 g/dL (32-36); MEAN CORPUSCULAR VOLUME 92 fL (80-99); MEAN PLATELET VOLUME 11.1 fL (9.0-12.2); MONOCYTES # (AUTO) 0.6 10^3/uL (0.0-1.0); MONOCYTES % (AUTO) 6 % (0-12); NEUTROPHILS # (AUTO) 9.1 10^3/uL (1.8-7.8); NEUTROPHILS % (AUTO) 87 % (42-75); PATIENT TEMP 37.6; PLATELET COUNT 306 10^3/uL (130-400); VENTILATOR YES; WHITE BLOOD COUNT 10.4 10^3/uL (4.3-11.0)
[2021-04-23 03:44] LABS: POTASSIUM 3.8 MMOL/L (3.6-5.0)
[2021-04-23 03:45] LABS: CALCIUM 7.5 MG/DL (8.5-10.1)
[2021-04-23 03:50] LABS: CREATININE SERUM 0.58 MG/DL (0.60-1.30)
[2021-04-23 03:52] LABS: MAGNESIUM 2.1 MG/DL (1.6-2.4)
[2021-04-23] MEDS: fentaNYL DRIP PRE-MIX 250 ML IV SCH ×3 (04:06→21:47)
[2021-04-23] MEDS: inSUlin ASPART (NovoLOG) 1 UNIT/0.01 ML (CHARGE PER UNIT) SQ SCH ×3 (05:09→18:15)
[2021-04-23] MEDS: KCL 20 MEQ TAB (K-DUR) PO SCH (05:09)
[2021-04-23] MEDS: POTASSIUM CL 10MEQ/50ML IVPB 50 ML IV SCH (05:09)
[2021-04-23] MEDS: MAGNESIUM 1 GM/100 ML IVPB 100 ML IV SCH (05:09)
[2021-04-23] MEDS: METOCLOPRAMIDE INJ 10 MG/2 ML (REGLAN) IVP SCH ×3 (06:13→17:59)
--- NOTE | 2021-04-23 07:35 | Physical Therapy Progress Note ---
Therapy Progress Note Patient remains sedated and intubated. PT to dismiss patient at this time. PT will require new orders when deemed medically stable and able to actively participate with skilled therapy. MINE MONTANEZ PT Apr 23, 2021 07:35
--- NOTE | 2021-04-23 07:39 | Occ Therapy Progress Note ---
Therapy Progress Note Pt currently intubated/sedated. OT will continue to monitor pt status and initiate treatment when pt is medically stable and able to actively participate in skilled therapy ADAM FISHER OT Apr 23, 2021 07:39
--- NOTE | 2021-04-23 07:58 | Progress Note ---
BISHOP FRANCES MED STUDENT 04/23/21 0758: Subjective Date Seen by a Provider: Apr 23, 2021 Time Seen by a Provider: 07:07 Subjective/Events-last exam Patient sedated on propofol and fentanyl gtts. Eyes open upon entering room. Squeezes hands bilaterally and wiggles toes when asked to. Does not nod appropriately. Does not track. Restless and mildly agitated when examining with BP and HR jumping up. Review of Systems General: Other (unable to obtain) HEENT: Other (unobtainable) Pulmonary: Other (unobtainable) Cardiovascular: Other (unobtainable) Gastrointestinal: Other (unobtainable) Genitourinary: Other (unobtainable) Musculoskeletal: other (unobtainable) Neurological: Other (unobtainable) Objective Exam Last Set of Vital Signs Vital Signs Date Time Temp Pulse Resp B/P (MAP) Pulse Ox O2 Delivery O2 Flow Rate FiO2 04/23/21 07:46 92 Mechanical Ventilator 40 04/23/21 06:56 98 29 04/23/21 06:00 37.5 85/57 (66) 30.00 Capillary Refill : Less Than 3 Seconds I&O Intake and Output 04/23/21 00:00 Intake Total 1920 ml Output Total 1440 ml Balance 480 ml Tube Feeding 1920 ml Output Urine Total 1440 ml General: Mild Distress, Other (Eyes open upon entering room. Mildly restless and agitated moving all fours. Does not track or nod appropriately. ) HEENT: Atraumatic, Other (Endotracheal tube in place. OGT in place. Left superior lateral orbital superficial wound. No erythema or purulence noted. Open to air. ) Neck: Supple, No LAD Lungs: Other (Coarse throughout with wheezing bilaterally. ) Heart: Other (Tachycardic per bedside monitor. Hypertensive per art line. Cap refill <3 seconds bilaterally. Radial and pedal pulses +2/4. Trace edema BLE. Irregularly irregular per monitor. ) Abdomen: Normal Bowel Sounds, Soft Extremities: No Clubbing, No Cyanosis, Normal Pulses Skin: No Rashes, No Significant Lesion Neuro: Other (sedated) Psych/Mental Status: Other (sedated) Results Lab Laboratory Tests 04/22/21 11:22: Glucometer 123H 04/22/21 16:53: Glucometer 130H 04/22/21 23:06: Glucometer 102 04/23/21 03:25: White Blood Count 10.4, Red Blood Count 3.77L, Hemoglobin 11.7L, Hematocrit 35L, Mean Corpuscular Volume 92, Mean Corpuscular Hemoglobin 31, Mean Corpuscular Hemoglobin Concent 34, Red Cell Distribution Width 14.4, Platelet Count 306, Mean Platelet Volume 11.1, Immature Granulocyte % (Auto) 1, Neutrophils (%) (Auto) 87H, Lymphocytes (%) (Auto) 6L, Monocytes (%) (Auto) 6, Eosinophils (%) (Auto) 0, Basophils (%) (Auto) 0, Neutrophils # (Auto) 9.1H, Lymphocytes # (Auto) 0.6L, Monocytes # (Auto) 0.6, Eosinophils # (Auto) 0.0, Basophils # (Auto) 0.0, Immature Granulocyte # (Auto) 0.1, Blood Gas Puncture Site ART LINE, Blood Gas Patient Temperature 37.6, Arterial Blood pH 7.51H, Arterial Blood Partial Pressure CO2 28L, Arterial Blood Partial Pressure O2 53L, Arterial Blood HCO3 22L, Arterial Blood Total CO2 23.0, Arterial Blood Oxygen Saturation 89L, Arterial Blood Base Excess -0.4, Aldo Test ART LINE, Blood Gas Ventilator Setting YES, Blood Gas Inspired Oxygen 30%, Sodium Level 136, Potassium Level 3.8, Chloride Level 109H, Carbon Dioxide Level 20L, Anion Gap 7, Blood Urea Nitrogen 21H, Creatinine 0.58L, Estimat Glomerular Filtration Rate 137, BU N/Creatinine Ratio 36, Glucose Level 95, Calcium Level 7.5L, Magnesium Level 2.1, Procalcitonin 0.18H Microbiology 04/13/21 Gram Stain - Final, Complete 04/13/21 Sputum Culture - Final, Complete Usual upper respiratory jack Assessment/Plan Assessment/Plan Assess & Plan/Chief Complaint Acute hypoxic respiratory failure/ARDS -continue ventilatory management -TV 600. FIO2 30%. PEEP 5. RR 26. - continue to wean as tolerated -attempt to wean sedation further COVID-19 PNA -04-23-21 CT 1. Evolution of previously seen COVID-19 pneumonia which is now comprised mostly of peripheral consolidation which remains moderate in severity. - New moderate bilateral pleural effusions and diffuse body wall edema. -Decadron Probable aspiration PNA -RN's report TF in ETT and coming out of mouth when proned 04-20 -new fever to 37.8 centigrade 04-20 -s/p zosyn -sputum culture 04-13 usual upper resp jack -reglan 04-20 Shock -resolved, pressors off -Restart pressor to keep MAP>65 PRN -1/2 NS at 50ml/hr Hypoalbuminemia -albumin 2.0 -continue to monitor Leukocytosis -procalcitonin 0.18 today -blood culture off PICC line 04-22 -WBC 10.4 today. continue to monitor. -likely steroid induced Anemia -hgb 11.7 today, stable -continue to monitor Hypercoagulable state associated with COVID-19 -d dimer on 04-15, 4.31 -eliquis Atrial fibrillation -eliquis GI ppx -protonix PICC: 04/14 Trotter: 04/13 OGT: TF's R radial art line: 04/13 Lungs coarse, with crackles and wheezing. Lasix 1 dose 20mg ordered by Dr. Shipman. LFT's added on Dr. Shipman spoke with IR Dr. Gaming and confirmed that he would not be able to do the thoracentesis here given the patient positioning that would be required and due to limitations of the patient being on the vent. LOLY CLAY MD 04/23/21 1353: Subjective Subjective/Events-last exam Not near extubation, with severe PNA from Covid, I think arterial line can be removed Supervisory-Addendum Brief Verification & Attestation Participated in pt care: history, physical Personally performed: history Care discussed with: Medical Student Procedures: n/a continue on full vent support, continue on full anti coagulation due to high d dimer MAGGIE SHIPMAN DO 04/23/21 1350: Subjective Subjective/Events-last exam Patient seems to be more complex today Lungs are very coarse Lasix 20mg IV given since BP ok and coarseness Tried to call Steven but no answer Objective Exam General: Other (Eyes open upon entering room. Mildly restless and agitated moving all fours. Does not track or nod appropriately. ) Lungs: Other (Coarse throughout with wheezing bilaterally. ) Assessment/Plan Assessment/Plan Assess & Plan/Chief Complaint Lasix 20mg IVP Tried to update Steven son IR can't maneuver and perform thoracentesis Supervisory-Addendum Brief Verification & Attestation Participated in pt care: history, MDM, physical Personally performed: exam, history, MDM, supervision of care Care discussed with: Medical Student Procedures: n/a Results interpretation: Verified all documentation Verification and Attestation of Medical Student E/M Service A medical student performed and documented this service in my presence. I reviewed and verified all information documented by the medical student and made modifications to such information, when appropriate. I personally performed the physical exam and medical decision making. Maggie Shipman, Apr 23, 2021,13:58 BISHOP FRANCES MED STUDENT Apr 23, 2021 07:58 LOLY CLAY MD Apr 23, 2021 13:55 MAGGIE SHIPMAN DO Apr 23, 2021 13:58
[2021-04-23] MEDS: APIXABAN 5 MG (ELIQUIS) TABLET PO SCH ×2 (08:27→20:46)
[2021-04-23] MEDS: PANTOPRAZOLE 40 MG (PROTONIX) VIAL IV SCH (08:27)
[2021-04-23] MEDS: ALPRAZolam 0.25 MG (XANAX) TAB PO PRN (10:54)
[2021-04-23] MEDS: fentaNYL INJ 100 MCG/2 ML AMP IVP PRN (10:55)
[2021-04-23] MEDS ORDERED: FUROSEMIDE 40 MG/4 ML INJ (LASIX) IVP ONE (11:15)
[2021-04-23 11:17] LABS: TOTAL PROTEIN 4.8 GM/DL (6.4-8.2)
[2021-04-23 11:19] LABS: BILIRUBIN,TOTAL 0.8 MG/DL (0.1-1.0)
[2021-04-23 11:22] LABS: BILIRUBIN,DIRECT 0.6 MG/DL (0.0-0.3); BILIRUBIN,INDIRECT 0.2 MG/DL
--- NOTE | 2021-04-23 14:28 | Progress Note - Cardiology ---
Cardiology SOAP Progress Note Subjective: Intubated and on mech vent. Unable to communicate Objective: I&O/Vital Signs 04/23/21 04/23/21 04/23/21 04/23/21 03:00 04:00 04:00 05:00 Temp 37.7 37.6 Pulse 57 55 120 Resp 21 26 B/P (MAP) 102/62 (75) 92/62 (72) Pulse Ox 95 92 94 87 O2 Delivery Mechanical Ventilator Mechanical Ventilator Mechanical Ventilator O2 Flow Rate 30.00 30.00 FiO2 30 04/23/21 04/23/21 04/23/21 04/23/21 05:00 06:00 06:56 07:00 Temp 37.5 37.5 37.4 Pulse 45 48 98 104 Resp 20 20 29 15 B/P (MAP) 80/52 (61) 85/57 (66) 189/83 (118) Pulse Ox 94 93 94 92 O2 Delivery Mechanical Ventilator Mechanical Ventilator Mechanical Ventilator O2 Flow Rate 30.00 30.00 40.00 FiO2 30 04/23/21 04/23/21 04/23/21 04/23/21 07:00 07:46 07:56 08:00 Temp 37.4 Pulse 96 93 Resp 22 B/P (MAP) 159/90 (113) Pulse Ox 92 92 O2 Delivery Mechanical Ventilator Mechanical Ventilator Mechanical Ventilator O2 Flow Rate 45.00 45.00 FiO2 40 04/23/21 04/23/21 04/23/21 04/23/21 08:31 09:00 09:54 10:00 Temp 37.4 37.5 Pulse 69 75 Resp 21 25 B/P (MAP) 159/60 (93) 126/69 (88) Pulse Ox 94 98 99 O2 Delivery Mechanical Ventilator Mechanical Ventilator Mechanical Ventilator Mechanical Ventilator O2 Flow Rate 40.00 40.00 35.00 35.00 04/23/21 04/23/21 04/23/21 04/23/21 10:47 11:00 12:00 12:27 Temp 37.5 37.5 Pulse 105 98 98 Resp 29 25 18 B/P (MAP) 120/67 (84) 156/76 (102) Pulse Ox 94 94 94 92 O2 Delivery Mechanical Ventilator Mechanical Ventilator Mechanical Ventilator O2 Flow Rate 35.00 35.00 FiO2 35 40 04/23/21 04/23/21 13:00 13:00 Temp 37.6 Pulse 98 101 Resp 26 B/P (MAP) 118/62 (80) Pulse Ox 95 O2 Delivery Mechanical Ventilator O2 Flow Rate 35.00 04/23/21 00:00 Intake Total 960 ml Output Total 625 ml Balance 335 ml Constitutional: other (Intubated, on mech vent, unable to communicate; I did not physically examine the patient to reduce exposure to COVID-19) Results/Procedures: Labs Laboratory Tests 04/22/21 16:53: Glucometer 130H 04/22/21 23:06: Glucometer 102 04/23/21 03:25: White Blood Count 10.4, Red Blood Count 3.77L, Hemoglobin 11.7L, Hematocrit 35L, Mean Corpuscular Volume 92, Mean Corpuscular Hemoglobin 31, Mean Corpuscular Hemoglobin Concent 34, Red Cell Distribution Width 14.4, Platelet Count 306, Mean Platelet Volume 11.1, Immature Granulocyte % (Auto) 1, Neutrophils (%) (Auto) 87H, Lymphocytes (%) (Auto) 6L, Monocytes (%) (Auto) 6, Eosinophils (%) (Auto) 0, Basophils (%) (Auto) 0, Neutrophils # (Auto) 9.1H, Lymphocytes # (Au to) 0.6L, Monocytes # (Auto) 0.6, Eosinophils # (Auto) 0.0, Basophils # (Auto) 0.0, Immature Granulocyte # (Auto) 0.1, Blood Gas Puncture Site ART LINE, Blood Gas Patient Temperature 37.6, Arterial Blood pH 7.51H, Arterial Blood Partial Pressure CO2 28L, Arterial Blood Partial Pressure O2 53L, Arterial Blood HCO3 22L, Arterial Blood Total CO2 23.0, Arterial Blood Oxygen Saturation 89L, Arterial Blood Base Excess -0.4, Aldo Test ART LINE, Blood Gas Ventilator Setting YES, Blood Gas Inspired Oxygen 30%, Sodium Level 136, Potassium Level 3.8, Chloride Level 109H, Carbon Dioxide Level 20L, Anion Gap 7, Blood Urea Nitrogen 21H, Creatinine 0.58L, Estimat Glomerular Filtration Rate 137, BUN/Cre atinine Ratio 36, Glucose Level 95, Calcium Level 7.5L, Magnesium Level 2.1, Total Bilirubin 0.8, Direct Bilirubin 0.6H, Indirect Bilirubin 0.2, Aspartate Amino Transf (AST/SGOT) 77H, Alanine Aminotransferase (ALT/SGPT) 89H, Alkaline Phosphatase 163H, Total Protein 4.8L, Albumin 2.0L, Procalcitonin 0.18H 04/23/21 12:08: Glucometer 127H Microbiology 04/13/21 Gram Stain - Final, Complete 04/13/21 Sputum Culture - Final, Complete Usual upper respiratory jack A/P: Assessment: COVID-19 pneumonia progressing to resp failure and requiring mechanical ventilation A Fib of unknown duration (seen on admission on 04/11/21), ventricular rate is well-controlled - OAC with Eliquis Plan: * Cardiac status is essentially unchanged * Hospitalist and ICU services are managing COVID-19 and pneumonia and resp failure * Ventricular rate from A Fib continues to remain controlled * Continue anticoag for stroke prophylaxis * Monitor labs RONNIE RAMIREZ MD FACP [facility] Apr 23, 2021 14:28
[2021-04-23] MEDS: PROPOFOL DRIP (ICU) 100 ML IV SCH (16:40)
[2021-04-23] MEDS: ACETAMINOPHEN 500 MG TAB (TYLENOL) PO PRN (16:41)
[2021-04-23] MEDS: 1/2 NS IV SOLUTION 1,000 ML IV SCH (18:00)
[2021-04-23] MEDS: AtorvaSTATin TABLET 10 MG TABLET PO SCH (20:46)
[2021-04-24] VITALS (29 sets, daily range): BP systolic 74–169; BP diastolic 53–86
[2021-04-24] MEDS: inSUlin ASPART (NovoLOG) 1 UNIT/0.01 ML (CHARGE PER UNIT) SQ SCH ×5 (01:06→23:26)
[2021-04-24] MEDS: CISATRACURIUM DRIP 250 ML IV SCH ×4 (01:06→19:27)
[2021-04-24] MEDS: METOCLOPRAMIDE INJ 10 MG/2 ML (REGLAN) IVP SCH ×5 (01:06→23:26)
[2021-04-24] MEDS: PROPOFOL DRIP (ICU) 100 ML IV SCH ×2 (01:07→14:15)
[2021-04-24] MEDS: RT-ALBUTEROL HFA 8.5 GM INHALER IH SCH ×6 (02:00→21:10)
[2021-04-24] MEDS: MIDAZOLAM 2 MG/2 ML (VERSED) VIAL IVP PRN (02:06)
[2021-04-24 04:00] LABS: BASOPHILS % (AUTO) 0 % (0-10); EOSINOPHILS # (AUTO) 0.1 10^3/uL (0.0-0.3); EOSINOPHILS % (AUTO) 1 % (0-10); HEMATOCRIT 36 % (40-54); LYMPHOCYTES # (AUTO) 0.6 10^3/uL (1.0-4.0); LYMPHOCYTES % (AUTO) 6 % (12-44); MEAN CORPUSCULAR HEMOGLOBIN 31 pg (25-34); MEAN CORPUSCULAR HGB CONC 33 g/dL (32-36); MEAN CORPUSCULAR VOLUME 92 fL (80-99); MEAN PLATELET VOLUME 10.7 fL (9.0-12.2); MONOCYTES # (AUTO) 0.5 10^3/uL (0.0-1.0); MONOCYTES % (AUTO) 5 % (0-12); NEUTROPHILS % (AUTO) 86 % (42-75); PLATELET COUNT 342 10^3/uL (130-400); WHITE BLOOD COUNT 10.5 10^3/uL (4.3-11.0)
[2021-04-24 04:01] LABS: ABG BASE EXCESS -0.4 MMOL/L (-2.5-2.5); ABG OXYGEN SATURATION 95 % (94-100); ABG PCO2 28 MMHG (35-45); ABG PH 7.52 (7.37-7.43); ABG PO2 71 MMHG (79-93); ABG TCO2 22.9 MMOL/L (21.0-31.0)
[2021-04-24 04:02] LABS: ALLENS TEST ART LINE; INSPIRED O2 45%; PATIENT TEMP 37.7; VENTILATOR YES
[2021-04-24 04:03] LABS: POTASSIUM 3.6 MMOL/L (3.6-5.0)
[2021-04-24 04:04] LABS: CALCIUM 7.3 MG/DL (8.5-10.1)
[2021-04-24 04:08] LABS: CREATININE SERUM 0.58 MG/DL (0.60-1.30)
[2021-04-24] MEDS: POTASSIUM CL 10MEQ/50ML IVPB 50 ML IV SCH ×3 (05:26→05:51)
[2021-04-24] MEDS: MAGNESIUM 1 GM/100 ML IVPB 100 ML IV SCH (05:26)
[2021-04-24] MEDS: KCL 20 MEQ TAB (K-DUR) PO SCH (05:26)
[2021-04-24] MEDS: fentaNYL DRIP PRE-MIX 250 ML IV SCH ×3 (05:51→23:26)
--- NOTE | 2021-04-24 08:28 | Tele-ICU Progress Note ---
Progress Note video rounds completed 75 y/o with Covid PNA Intubated on 04/13 vent: 26/600/40%/5 Hr: 90-100 irregular BP: 180/84 O2 sat 90% Labs: AB.52/28/71/22 WBC: 10.5 Hgb 12 Plts: 142 Na: 136 K: 3.6 Cl: 107 Glu: 94 BUN" 19 creat: 0.58 PLAN" overall stable Could decreaserate on ventand lower TV to correct metabolic alkalosis Focused Exam Height, Weight, BMI Height: '" Weight: lbs. oz. kg; 21.43 BMI Method: Laboratory Tests 04/24/21 03:50 LOLY MCFARLAND MD Apr 24, 2021 08:28
--- NOTE | 2021-04-24 08:50 | Cardiology Progress Note ---
Subjective Date Seen by Provider: Apr 24, 2021 Time Seen by Provider: 08:46 Subjective/Events-last exam Patient is sedated and intubated. Propofol was tapered down, he opens his eyes. Hypotensive and tachycardic Review of Systems General: Other (Unable to provide review of system) Objective-Cardiology Exam Last Set of Vital Signs Vital Signs 04/24/21 08:00 Temp 37.7 Pulse 98 Resp 26 B/P (MAP) 169/81 (110) Pulse Ox 93 O2 Delivery Mechanical Ventilator O2 Flow Rate 45.00 FiO2 45 I&O Intake and Output 04/24/21 00:00 Intake Total 3580 ml Output Total 3300 ml Balance 280 ml IV Total 1600 ml Tube Feeding 1520 ml Other 460 ml Output Urine Total 3300 ml General: Other (Eyes open upon entering room. Mildly restless and agitated ) HEENT: Atraumatic, Other (Endotracheal tube in place. OGT in place. Left superior lateral orbital superficial wound. No erythema or purulence noted. Open to air. ) Neck: Supple, No LAD Heart: Other (Atrial fibrillation) Extremities: Normal Pulses Skin: No Rashes, No Significant Lesion Neuro: Other (sedated) Psych/Mental Status: Other (sedated) Results Lab Laboratory Tests 04/24/21 03:50 A/P-Cardiology Admission Diagnosis Acute respiratory failure ARDS COVID-19 pneumonia Atrial fibrillation Assessment/Plan Acute respiratory failure, ventilator dependent, ARDS. Managed by critical care team COVID-19 pneumonia, CT was done on 04/23/2021 showing coarse pulmonary infiltrate, moderate bilateral pleural effusion. Atrial fibrillation, borderline tachycardia and hypertensive, was hypotensive earlier due to propofol. Currently tachycardic after tapering down the dose. Continue to monitor closely. Hypercoagulable state with elevated D-dimer, maintained on Eliquis Labile blood pressure, hypotensive shock due to sepsis and sedation. Blood pressure currently elevated off all pressors. Monitor closely ANAT ROBERTSON MD Apr 24, 2021 08:50
[2021-04-24] MEDS: PANTOPRAZOLE 40 MG (PROTONIX) VIAL IV SCH (08:51)
[2021-04-24] MEDS: APIXABAN 5 MG (ELIQUIS) TABLET PO SCH ×2 (08:51→20:51)
--- NOTE | 2021-04-24 09:51 | Progress Note ---
Subjective Date Seen by a Provider: Apr 24, 2021 Time Seen by a Provider: 13:00 Subjective/Events-last exam Patient still intubated Eyes open but does not track Does not follow commands PEEP of 5 When attempting to wean his blood pressure goes up and he does not agitated Objective Exam Last Set of Vital Signs Vital Signs Date Time Temp Pulse Resp B/P (MAP) Pulse Ox O2 Delivery O2 Flow Rate FiO2 04/24/21 09:00 37.6 85 22 134/73 (93) 93 Mechanical Ventilator 45.00 04/24/21 08:00 45 Capillary Refill : Less Than 3 Seconds I&O Intake and Output 04/24/21 00:00 Intake Total 3580 ml Output Total 3300 ml Balance 280 ml IV Total 1600 ml Tube Feeding 1520 ml Other 460 ml Output Urine Total 3300 ml General: Other (Opens eyes but otherwise sedated) Lungs: Other (Coarse throughout) Heart: Regular Rate Results Lab Laboratory Tests 04/23/21 12:08: Glucometer 127H 04/23/21 17:54: Glucometer 107 04/24/21 01:03: Glucometer 84 04/24/21 03:50: White Blood Count 10.5, Red Blood Count 3.89L, Hemoglobin 12.0L, Hematocrit 36L, Mean Corpuscular Volume 92, Mean Corpuscular Hemoglobin 31, Mean Corpuscular Hemoglobin Concent 33, Red Cell Distribution Width 14.4, Platelet Count 342, Mean Platelet Volume 10.7, Immature Granulocyte % (Auto) 2, Neutrophils (%) (Auto) 86H, Lymphocytes (%) (Auto) 6L, Monocytes (%) (Auto) 5, Eosinophils (%) (Auto) 1, Basophils (%) (Auto) 0, Neutrophils # (Auto) 9.0H, Lymphocytes # (Auto) 0.6L, Monocytes # (Auto) 0.5, Eosinophils # (Auto) 0.1, Basophils # (Auto) 0.0, Immature Granulocyte # (Auto) 0.2H, Blood Gas Puncture Site RIGHT ART LINE, Blood Gas Patient Temperature 37.7, Arterial Blood pH 7.52H, Arterial Blood Partial Pressure CO2 28L, Arterial Blood Partial Pressure O2 71L, Arterial Blood HCO3 22L, Arterial Blood Total CO2 22.9, Arterial Blood Oxygen Saturation 95, Arterial Blood Base Excess -0.4, Aldo Test ART LINE, Blood Gas Ventilator Setting YES, Blood Gas Inspired Oxygen 45%, Sodium Level 136, Potassium Level 3.6, Chloride Level 107, Carbon Dioxide Level 19L, Anion Gap 10, Blood Urea Nitrogen 19H, Creatinine 0.58L, Estimat Glomerular Filtration Rate 137, BUN/Creatinine Ratio 33, Glucose Level 94, Calcium Level 7.3L, Phosphorus Level 2.7, Magnesium Level 2.0 Microbiology 04/22/21 Blood Culture - Preliminary, Resulted No growth 04/13/21 Gram Stain - Final, Complete 04/13/21 Sputum Culture - Final, Complete Usual upper respiratory jack Assessment/Plan Assessment/Plan Assess & Plan/Chief Complaint Assessment: COVID-19 pneumonia Acute hypoxic respiratory failure Ventilator dependence Status post bacterial pneumonia Plan: Supportive care Ventilator management appreciated COTY SHIPMAN DO Apr 24, 2021 09:51
[2021-04-24] MEDS: 1/2 NS IV SOLUTION 1,000 ML IV SCH (11:33)
--- NOTE | 2021-04-24 12:06 | Physical Therapy Progress Note ---
Therapy Progress Note Patient remains sedated and intubated. PT to dismiss patient at this time. PT will require new orders when deemed medically stable and able to actively participate with skilled therapy. DELORIS HOLT PT Apr 24, 2021 12:06
[2021-04-24] MEDS: AtorvaSTATin TABLET 10 MG TABLET PO SCH (20:51)
[2021-04-25] VITALS (29 sets, daily range): BP systolic 100–172; BP diastolic 56–84
[2021-04-25] MEDS: MIDAZOLAM 2 MG/2 ML (VERSED) VIAL IVP PRN ×4 (00:37→12:17)
[2021-04-25] MEDS: RT-ALBUTEROL HFA 8.5 GM INHALER IH SCH ×6 (02:13→21:11)
[2021-04-25] MEDS: CISATRACURIUM DRIP 250 ML IV SCH ×4 (02:39→21:49)
[2021-04-25] MEDS: PROPOFOL DRIP (ICU) 100 ML IV SCH (02:41)
[2021-04-25 03:56] LABS: ABG BASE EXCESS -0.4 MMOL/L (-2.5-2.5); ABG OXYGEN SATURATION 91 % (94-100); ABG PCO2 27 MMHG (35-45); ABG PH 7.52 (7.37-7.43); ABG PO2 54 MMHG (79-93); ABG TCO2 22.9 MMOL/L (21.0-31.0); BASOPHILS % (AUTO) 0 % (0-10); EOSINOPHILS # (AUTO) 0.1 10^3/uL (0.0-0.3); EOSINOPHILS % (AUTO) 1 % (0-10); HEMATOCRIT 37 % (40-54); HEMOGLOBIN 12.2 g/dL (13.3-17.7); LYMPHOCYTES # (AUTO) 0.8 10^3/uL (1.0-4.0); LYMPHOCYTES % (AUTO) 6 % (12-44); MEAN CORPUSCULAR HEMOGLOBIN 30 pg (25-34); MEAN CORPUSCULAR HGB CONC 33 g/dL (32-36); MEAN CORPUSCULAR VOLUME 91 fL (80-99); MEAN PLATELET VOLUME 10.6 fL (9.0-12.2); MONOCYTES # (AUTO) 0.7 10^3/uL (0.0-1.0); MONOCYTES % (AUTO) 5 % (0-12); NEUTROPHILS # (AUTO) 11.1 10^3/uL (1.8-7.8); NEUTROPHILS % (AUTO) 86 % (42-75); PLATELET COUNT 394 10^3/uL (130-400); WHITE BLOOD COUNT 12.8 10^3/uL (4.3-11.0)
[2021-04-25 03:57] LABS: ALLENS TEST ART LINE; INSPIRED O2 35%; PATIENT TEMP 37.5; VENTILATOR YES
[2021-04-25 04:08] LABS: POTASSIUM 3.8 MMOL/L (3.6-5.0)
[2021-04-25 04:09] LABS: CALCIUM 7.6 MG/DL (8.5-10.1)
[2021-04-25 04:11] LABS: TOTAL PROTEIN 4.8 GM/DL (6.4-8.2)
[2021-04-25 04:12] LABS: BILIRUBIN,TOTAL 0.6 MG/DL (0.1-1.0)
[2021-04-25 04:14] LABS: CREATININE SERUM 0.59 MG/DL (0.60-1.30)
[2021-04-25] MEDS: MAGNESIUM 1 GM/100 ML IVPB 100 ML IV SCH (05:51)
[2021-04-25] MEDS: inSUlin ASPART (NovoLOG) 1 UNIT/0.01 ML (CHARGE PER UNIT) SQ SCH ×3 (05:51→17:33)
[2021-04-25] MEDS: POTASSIUM CL 10MEQ/50ML IVPB 50 ML IV SCH (05:51)
[2021-04-25] MEDS: KCL 20 MEQ TAB (K-DUR) PO SCH (05:51)
[2021-04-25] MEDS: METOCLOPRAMIDE INJ 10 MG/2 ML (REGLAN) IVP SCH ×3 (06:25→18:34)
[2021-04-25] MEDS: 1/2 NS IV SOLUTION 1,000 ML IV SCH (07:43)
[2021-04-25] MEDS: ALPRAZolam 0.25 MG (XANAX) TAB PO PRN (07:44)
[2021-04-25] MEDS: PANTOPRAZOLE 40 MG (PROTONIX) VIAL IV SCH (07:44)
--- NOTE | 2021-04-25 09:31 | Tele-ICU Progress Note ---
Progress Note video rounds completed 75 y/o male with covid PNA on vent settings: /600/45/5 AB.52//54/22 otherwise comfortable and sedated PLAN: decrease rate to 22 Focused Exam Height, Weight, BMI Height: '" Weight: lbs. oz. kg; 21.43 BMI Method: Laboratory Tests 04/25/21 03:45 LOLY MCFARLAND MD Apr 25, 2021 09:31
[2021-04-25] MEDS: fentaNYL DRIP PRE-MIX 250 ML IV SCH (09:38)
--- NOTE | 2021-04-25 10:02 | Cardiology Progress Note ---
Subjective Date Seen by Provider: Apr 25, 2021 Time Seen by Provider: 10:01 Subjective/Events-last exam Patient is sedated and intubated, having labile blood pressure Review of Systems General: Other (Unable to provide review of system) Objective-Cardiology Exam Last Set of Vital Signs Vital Signs 04/25/21 04/25/21 07:40 09:00 Temp 37.4 Pulse 76 Resp 26 B/P (MAP) 139/82 (101) Pulse Ox 98 O2 Delivery Mechanical Ventilator O2 Flow Rate 45.00 FiO2 45 I&O Intake and Output 04/25/21 00:00 Intake Total 2430 ml Output Total 3775 ml Balance -1345 ml IV Total 450 ml Tube Feeding 1320 ml Other 660 ml Output Urine Total 3775 ml General: Other (Opens eyes but otherwise sedated) HEENT: Atraumatic, Other (Endotracheal tube in place. OGT in place. Left superior lateral orbital superficial wound. No erythema or purulence noted. Open to air. ) Neck: Supple, No LAD Lungs: Other (Coarse throughout) Heart: Regular Rate Extremities: Normal Pulses Skin: No Rashes, No Significant Lesion Neuro: Other (sedated) Psych/Mental Status: Other (sedated) Results Lab Laboratory Tests 04/25/21 03:45 A/P-Cardiology Admission Diagnosis Acute respiratory failure ARDS COVID-19 pneumonia Atrial fibrillation Assessment/Plan Acute respiratory failure, ventilator dependent, ARDS. Managed by critical care team COVID-19 pneumonia, CT was done on 04/23/2021 showing coarse pulmonary infiltrate, moderate bilateral pleural effusion. Atrial fibrillation, borderline tachycardia and hypertensive, still having labile heart rate and blood pressure based on the sedation. Hypercoagulable state with elevated D-dimer, maintained on Eliquis Labile blood pressure, hypotensive shock due to sepsis and sedation. Blood pressure currently elevated off all pressors. Monitor closely ANAT ROBERTSON MD Apr 25, 2021 10:02
--- NOTE | 2021-04-25 12:57 | Progress Note ---
Subjective Date Seen by a Provider: Apr 25, 2021 Time Seen by a Provider: 12:45 Subjective/Events-last exam Patient still intubated Updated CASSIDY his son Discontinue isolation Patient may need a trach and PEG tube and son willing to do that Check meds and labs Not weanable yet Objective Exam Last Set of Vital Signs Vital Signs Date Time Temp Pulse Resp B/P (MAP) Pulse Ox O2 Delivery O2 Flow Rate FiO2 04/25/21 12:43 97 Mechanical Ventilator 35 04/25/21 12:22 35.00 04/25/21 12:00 37.3 81 15 144/79 (100) Capillary Refill : Less Than 3 Seconds I&O Intake and Output 04/25/21 00:00 Intake Total 2430 ml Output Total 3775 ml Balance -1345 ml IV Total 450 ml Tube Feeding 1320 ml Other 660 ml Output Urine Total 3775 ml General: Other (Sedated and intubated) Lungs: Other (Coarseness) Extremities: No Edema Results Lab Laboratory Tests 04/24/21 13:09: Glucometer 128H 04/24/21 17:10: Glucometer 109 04/24/21 23:25: Glucometer 96 04/25/21 03:45: White Blood Count 12.8H, Red Blood Count 4.03L, Hemoglobin 12.2L, Hematocrit 37L , Mean Corpuscular Volume 91, Mean Corpuscular Hemoglobin 30, Mean Corpuscular Hemoglobin Concent 33, Red Cell Distribution Width 14.2, Platelet Count 394, Mean Platelet Volume 10.6, Immature Granulocyte % (Auto) 2, Neutrophils (%) (Auto) 86H, Lymphocytes (%) (Auto) 6L, Monocytes (%) (Auto) 5, Eosinophils (%) (Auto) 1, Basophils (%) (Auto) 0, Neutrophils # (Auto) 11.1H, Lymphocytes # (Auto) 0.8L, Monocytes # (Auto) 0.7, Eosinophils # (Auto) 0.1, Basophils # (Auto) 0.0, Immature Granulocyte # (Auto) 0.2H, Blood Gas Puncture Site RIGHT RADIAL, Blood Gas Patient Temperature 37.5, Arterial Blood pH 7.52H, Arterial Blood Partial Pressure CO2 27L, Arterial Blood Partial Pressure O2 54L, Arterial Blood HCO3 22L, Arterial Blood Total CO2 22.9, Arterial Blood Oxygen Saturation 91L, Arterial Blood Base Excess -0.4, Aldo Test ART LINE, Blood Gas Ventilator Setting YES, Blood Gas Inspired Oxygen 35%, Sodium Level 138, Potassium Level 3.8, Chloride Level 109H, Carbon Dioxide Level 20L, Anion Gap 9, Blood Urea Nitrogen 18, Creatinine 0.59L, Estimat Glomerular Filtration Rate 134, BUN/Creatinine Ratio 31, Glucose Level 94, Calcium Level 7.6L, Corrected Calcium 9.2, Phosphorus Level 3.0, Magnesium Level 2.0, Total Bilirubin 0.6, Aspartate Amino Transf (AST/SGOT) 85H, Alanine Aminotransferase (ALT/SGPT) 137H, Alkaline Phosphatase 184H, Total Protein 4.8L, Albumin 2.0L, Triglycerides Level 119, Cholesterol Level 137, LDL Cholesterol Direct 109, VLDL Cholesterol 24, HDL Cholesterol 24L 04/25/21 12:21: Glucometer 109 Microbiology 04/22/21 Blood Culture - Preliminary, Resulted No growth 04/13/21 Gram Stain - Final, Complete 04/13/21 Sputum Culture - Final, Complete Usual upper respiratory jack Assessment/Plan Assessment/Plan Assess & Plan/Chief Complaint Assessment: COVID-19 pneumonia Acute hypoxic respiratory failure Ventilator dependence Status post bacterial pneumonia Plan: Supportive care Ventilator management appreciated 04/25/2021: Spoke to Cassidy zamora trach and PEG may be needed and he agrees with plan Not weanable yet DC isolation COTY SHIPMAN DO Apr 25, 2021 12:57
[2021-04-25] MEDS: APIXABAN 5 MG (ELIQUIS) TABLET PO SCH ×2 (13:12→21:49)
[2021-04-25] MEDS: MIDAZOLAM DRIP PRE-MIX 100 ML IV SCH (13:12)
[2021-04-25] MEDS: AtorvaSTATin TABLET 10 MG TABLET PO SCH (21:49)
[2021-04-26] VITALS (31 sets, daily range): BP systolic 76–177; BP diastolic 50–88
[2021-04-26] MEDS: METOCLOPRAMIDE INJ 10 MG/2 ML (REGLAN) IVP SCH ×5 (00:14→23:46)
[2021-04-26] MEDS: PROPOFOL DRIP (ICU) 100 ML IV SCH (00:14)
[2021-04-26] MEDS: inSUlin ASPART (NovoLOG) 1 UNIT/0.01 ML (CHARGE PER UNIT) SQ SCH ×5 (00:22→23:46)
[2021-04-26] MEDS: 1/2 NS IV SOLUTION 1,000 ML IV SCH ×2 (01:03→17:41)
[2021-04-26] MEDS: MIDAZOLAM 2 MG/2 ML (VERSED) VIAL IVP PRN (01:03)
[2021-04-26] MEDS: ACETAMINOPHEN 500 MG TAB (TYLENOL) PO PRN (01:09)
[2021-04-26] MEDS: fentaNYL DRIP PRE-MIX 250 ML IV SCH ×2 (01:15→17:41)
[2021-04-26] MEDS: RT-ALBUTEROL HFA 8.5 GM INHALER IH SCH ×6 (02:19→21:41)
[2021-04-26 04:07] LABS: BASOPHILS # (AUTO) 0.1 10^3/uL (0.0-0.1); BASOPHILS % (AUTO) 0 % (0-10); EOSINOPHILS # (AUTO) 0.1 10^3/uL (0.0-0.3); EOSINOPHILS % (AUTO) 1 % (0-10); HEMATOCRIT 36 % (40-54); HEMOGLOBIN 12.1 g/dL (13.3-17.7); LYMPHOCYTES # (AUTO) 0.7 10^3/uL (1.0-4.0); LYMPHOCYTES % (AUTO) 5 % (12-44); MEAN CORPUSCULAR HEMOGLOBIN 31 pg (25-34); MEAN CORPUSCULAR HGB CONC 34 g/dL (32-36); MEAN CORPUSCULAR VOLUME 93 fL (80-99); MEAN PLATELET VOLUME 10.6 fL (9.0-12.2); MONOCYTES # (AUTO) 0.7 10^3/uL (0.0-1.0); MONOCYTES % (AUTO) 5 % (0-12); NEUTROPHILS # (AUTO) 12.4 10^3/uL (1.8-7.8); NEUTROPHILS % (AUTO) 87 % (42-75); PLATELET COUNT 408 10^3/uL (130-400); WHITE BLOOD COUNT 14.2 10^3/uL (4.3-11.0)
[2021-04-26 04:18] LABS: ABG BASE EXCESS 1.2 MMOL/L (-2.5-2.5); ABG OXYGEN SATURATION 91 % (94-100); ABG PCO2 34 MMHG (35-45); ABG PH 7.47 (7.37-7.43); ABG PO2 62 MMHG (79-93); ABG TCO2 25.3 MMOL/L (21.0-31.0); ALLENS TEST ART LINE; INSPIRED O2 30%; PATIENT TEMP 37.8; VENTILATOR YES
[2021-04-26 04:20] LABS: ALBUMIN 1.9 GM/DL (3.2-4.5); POTASSIUM 3.6 MMOL/L (3.6-5.0)
[2021-04-26 04:21] LABS: CALCIUM 7.1 MG/DL (8.5-10.1)
[2021-04-26 04:22] LABS: TOTAL PROTEIN 4.7 GM/DL (6.4-8.2)
[2021-04-26 04:24] LABS: BILIRUBIN,TOTAL 0.6 MG/DL (0.1-1.0)
[2021-04-26 04:26] LABS: CREATININE SERUM 0.59 MG/DL (0.60-1.30)
[2021-04-26 04:29] LABS: MAGNESIUM 1.8 MG/DL (1.6-2.4)
[2021-04-26] MEDS: CISATRACURIUM DRIP 250 ML IV SCH ×4 (04:35→22:32)
[2021-04-26] MEDS: POTASSIUM CL 10MEQ/50ML IVPB 50 ML IV SCH ×3 (04:36→06:21)
[2021-04-26] MEDS: KCL 20 MEQ TAB (K-DUR) PO SCH (04:36)
[2021-04-26] MEDS: MAGNESIUM 1 GM/100 ML IVPB 100 ML IV SCH (04:36)
--- NOTE | 2021-04-26 06:50 | Occ Therapy Progress Note ---
Therapy Progress Note Pt currently intubated. OT will continue to monitor pt status and initiate treatment when pt is medically stable and able to actively participate in skilled therapy. MICHI AMAYA Apr 26, 2021 06:50
--- NOTE | 2021-04-26 06:58 | Progress Note ---
Subjective Date Seen by a Provider: Apr 26, 2021 Time Seen by a Provider: 11:00 Subjective/Events-last exam Pt doing pretty well but still intubated Coarse breath sounds continue T-Max was an isolated elevation May need trach and peg Objective Exam Last Set of Vital Signs Vital Signs Date Time Temp Pulse Resp B/P (MAP) Pulse Ox O2 Delivery O2 Flow Rate FiO2 04/26/21 06:51 98 26 93 30 04/26/21 06:00 37.5 126/69 (88) Mechanical Ventilator 30.00 Capillary Refill : Less Than 3 Seconds I&O Intake and Output 04/25/21 23:59 Intake Total 3500 ml Output Total 4475 ml Balance -975 ml IV Total 1580 ml Tube Feeding 1320 ml Other 600 ml Output Urine Total 4475 ml General: Other (Sedated and intubated) Lungs: Other (Coarse breath sounds) Results Lab Laboratory Tests 04/25/21 12:21: Glucometer 109 04/25/21 17:30: Glucometer 107 04/26/21 00:22: Glucometer 85 04/26/21 03:58: White Blood Count 14.2H, Red Blood Count 3.88L, Hemoglobin 12.1L, Hematocrit 36L , Mean Corpuscular Volume 93, Mean Corpuscular Hemoglobin 31, Mean Corpuscular Hemoglobin Concent 34, Red Cell Distribution Width 14.5, Platelet Count 408H, Mean Platelet Volume 10.6, Immature Granulocyte % (Auto) 2, Neutrophils (%) (Auto) 87H, Lymphocytes (%) (Auto) 5L, Monocytes (%) (Auto) 5, Eosinophils (%) (Auto) 1, Basophils (%) (Auto) 0, Neutrophils # (Auto) 12.4H, Lymphocytes # (Auto) 0.7L, Monocytes # (Auto) 0.7, Eosinophils # (Auto) 0.1, Basophils # (Auto) 0.1, Immature Granulocyte # (Auto) 0.2H, Sodium Level 135, Potassium Level 3.6, Chloride Level 106, Carbon Dioxide Level 20L, Anion Gap 9, Blood Urea Nitrogen 15, Creatinine 0.59L, Estimat Glomerular Filtration Rate 134, BUN/Creatinine Ratio 25, Glucose Level 88, Calcium Level 7.1L, Corrected Calcium 8.8, Phosphorus Level 3.0, Magnesium Level 1.8, Total Bilirubin 0.6, Aspartate Amino Transf (AST/SGOT) 58H, Alanine Aminotransferase (ALT/SGPT) 112H, Alkaline Phosphatase 161H, Total Protein 4.7L, Albumin 1.9L 04/26/21 04:10: Blood Gas Puncture Site RIGHT ART LINE, Blood Gas Patient Temperature 37.8, Arterial Blood pH 7.47H, Arterial Blood Partial Pressure CO2 34L, Arterial Blood Partial Pressure O2 62L, Arterial Blood HCO3 24, Arterial Blood Total CO2 25.3, Arterial Blood Oxygen Saturation 91L, Arterial Blood Base Excess 1.2, Aldo Test ART LINE, Blood Gas Ventilator Setting YES, Blood Gas Inspired Oxygen 30% Microbiology 04/22/21 Blood Culture - Preliminary, Resulted No growth 04/13/21 Gram Stain - Final, Complete 04/13/21 Sputum Culture - Final, Complete Usual upper respiratory jack Assessment/Plan Assessment/Plan Assess & Plan/Chief Complaint Assessment: COVID-19 pneumonia Acute hypoxic respiratory failure Ventilator dependence Status post bacterial pneumonia Plan: Supportive care Ventilator management appreciated 04/25/2021: Spoke to Steven son trach and PEG may be needed and he agrees with plan Not weanable yet DC isolation 04/26/2021: Trach and PEG may be required Supportive care COTY SHIPMAN DO Apr 26, 2021 06:58
--- NOTE | 2021-04-26 07:15 | Diagnostic Imaging Report ---
INDICATION: Intubated, pleural effusion 04/21/21 FINDINGS: Single view the chest demonstrates unchanged bilateral pulmonary infiltrates. The heart remains enlarged. There are trace effusions. There is no pneumothorax. Support devices are stable. IMPRESSION: 1. Unchanged aeration of the lungs. 2. Stable support devices. No pneumothorax. Dictated by: Dictated on workstation # [id number]
[2021-04-26] MEDS: PANTOPRAZOLE 40 MG (PROTONIX) VIAL IV SCH (08:22)
[2021-04-26] MEDS: APIXABAN 5 MG (ELIQUIS) TABLET PO SCH ×2 (08:22→20:42)
--- NOTE | 2021-04-26 11:05 | Pulmonary Progress Note ---
BISHOP FRANCES MED STUDENT 04/26/21 1105: Subjective Date Seen by a Provider: Apr 26, 2021 Time Seen by a Provider: 07:10 Subjective/Events-last exam Remains sedated and intubated. Vitals stable per bedside monitor. No acute changes overnight per [employer]. Review of Systems General: Other (unable to obtain) HEENT: Other (unable to obtain) Pulmonary: Other (unable to obtain) Cardiovascular: Other (unable to obtain) Gastrointestinal: Other (unable to obtain) Genitourinary: Other (unable to obtain) Musculoskeletal: other (unable to obtain) Neurological: Other (unable to obtain) Sepsis Event Evaluation Height, Weight, BMI Height: '" Weight: lbs. oz. kg; 21.43 BMI Method: Exam Exam Patient acknowledged, consented, and participated in this virtual visit which was conducted using real time audio/video Vital Signs Date Time Temp Pulse Resp B/P (MAP) Pulse Ox O2 Delivery O2 Flow Rate FiO2 04/26/21 09:55 77 20 98 25 04/26/21 08:23 96 Mechanical Ventilator 30 04/26/21 06:54 93 04/26/21 06:51 98 26 93 30 04/26/21 06:00 37.5 79 24 126/69 (88) 96 Mechanical Ventilator 30.00 04/26/21 05:00 120 28 90 04/26/21 05:00 37.6 78 21 100/63 (75) 96 Mechanical Ventilator 30.00 04/26/21 04:35 37.8 04/26/21 04:00 96 Mechanical Ventilator 30 04/26/21 04:00 37.8 80 12 120/67 (84) 97 Mechanical Ventilator 30.00 04/26/21 03:00 37.9 79 101/57 (72) 98 Mechanical Ventilator 30.00 04/26/21 02:19 89 22 98 30 04/26/21 02:15 38.2 89 111/63 (79) 98 Mechanical Ventilator 30.00 04/26/21 01:09 38.2 04/26/21 01:00 38.1 106 23 177/88 (117) 91 Mechanical Ventilator 30.00 04/26/21 01:00 106 04/26/21 00:14 77 102/63 04/26/21 00:00 96 Mechanical Ventilator 30 04/26/21 00:00 38.1 82 22 108/66 (80) 95 Mechanical Ventilator 30.00 04/25/21 23:00 37.8 90 30 148/79 (102) 90 Mechanical Ventilator 30.00 04/25/21 22:00 37.8 109 25 149/67 (94) 92 Mechanical Ventilator 30.00 04/25/21 21:11 85 28 94 30 04/25/21 21:00 37.5 68 26 130/68 (88) 96 Mechanical Ventilator 30.00 04/25/21 20:00 37.5 71 19 110/63 (79) 94 Mechanical Ventilator 30.00 04/25/21 20:00 96 Mechanical Ventilator 30 04/25/21 19:00 75 04/25/21 19:00 37.3 75 22 113/65 (81) 95 Mechanical Ventilator 30.00 04/25/21 18:58 101 29 94 30 04/25/21 18:00 37.3 67 24 116/73 (87) 96 Mechanical Ventilator 30.00 04/25/21 17:40 Mechanical Ventilator 30.00 04/25/21 17:00 37.2 75 22 106/66 (79) 96 Mechanical Ventilator 35.00 04/25/21 16:15 97 Mechanical Ventilator 30 04/25/21 16:00 37.2 67 12 100/61 (74) 96 Mechanical Ventilator 35.00 04/25/21 15:00 37.2 63 21 140/77 (98) 99 Mechanical Ventilator 35.00 04/25/21 14:40 101 24 99 35 04/25/21 14:00 37.2 68 21 101/56 (71) 98 Mechanical Ventilator 35.00 04/25/21 13:12 100 15 144/79 04/25/21 13:00 37.2 63 21 108/66 (80) 99 Mechanical Ventilator 35.00 04/25/21 12:58 100 04/25/21 12:43 97 Mechanical Ventilator 35 04/25/21 12:22 Mechanical Ventilator 35.00 04/25/21 12:00 37.3 81 15 144/79 (100) 100 Mechanical Ventilator 45.00 I & O 04/26/21 07:00 Intake Total 4850 ml Output Total 3575 ml Balance 1275 ml Height & Weight Height: '" Weight: lbs. oz. kg; 21.43 BMI Method: General Appearance: WD/WN, Chronically ill, Other (Sedated and intubated) HEENT: PERRL/EOMI Neck: Supple Respiratory: No Accessory Muscle Use, No Respiratory Distress, Rhonci, Wheezing Cardiovascular: Normal Peripheral Pulses, Irregularly Irregular, Other (afib per monitor) Capillary Refill: Less Than 3 Seconds Peripheral Pulses: 1+ Dorsalis Pedis (R), 1+ Left Dors-Pedis (L) (see free text), 1+ Radial Pulses (L) Gastrointestinal: normal bowel sounds, soft Extremity: Normal Capillary Refill, No Pedal Edema Neurologic/Psychiatric: Other (sedated) Skin: Normal Color, Warm/Dry Lymphatic: No Adenopathy Results Lab Laboratory Tests 04/25/21 03:45 04/26/21 03:58 Assessment/Plan Assessment/Plan Acute hypoxic respiratory failure/ARDS -continue ventilatory management -TV 600. FIO2 30%. PEEP 5. RR 22. - continue to wean as tolerated -attempt to wean sedation further -family in agreement with trach and PEG if need be COVID-19 PNA -04-26 Single view the chest demonstrates unchanged bilateral pulmonary infiltrates -04-23-21 CT 1. Evolution of previously seen COVID-19 pneumonia which is now comprised mostly of peripheral consolidation which remains moderate in severity. - New moderate bilateral pleural effusions and diffuse body wall edema. -Decadron Shock -resolved, pressors off -restart pressor to keep MAP>65 PRN -1/2 NS at 50ml/hr Hypoalbuminemia -albumin 1.9 -continue to monitor Leukocytosis -WBC 14.2 -blood culture off PICC line 04-22, prelim negative thus fa -likely steroid induced Anemia -hgb 12.1 today, stable -continue to monitor Elevated AST/ALT -mildly elevated -continue to monitor Hypercoagulable state associated with COVID-19 -d dimer on 04-15, 4.31 -eliquis Atrial fibrillation -eliquis GI ppx -protonix PICC: 04/14 Trotter: 04/13 OGT: TF's R radial art line: 04/13 NNAMDI KRUSE MD 04/27/21 1252: Supervisory-Addendum Brief Verification & Attestation Participated in pt care: history, MDM, physical Personally performed: history, MDM, supervision of care Care discussed with: Medical Student Procedures: n/a A medical student performed and documented this service. I reviewed all information documented by the medical student . Medical student performed patients physical exam . Medical decision making was done during tele-rounds with this medical student and a bedside RN . Please see my notes for details /clarification. BISHOP FRANCES MED STUDENT Apr 26, 2021 11:05 NNAMDI KRUSE MD Apr 27, 2021 12:52
--- NOTE | 2021-04-26 12:48 | Tele-ICU Progress Note ---
Subjective Date Seen by a Provider: Apr 26, 2021 Time Seen by a Provider: 12:48 Sepsis Event Evaluation Height, Weight, BMI Height: '" Weight: lbs. oz. kg; 21.43 BMI Method: Exam Exam Patient acknowledged, consented, and participated in this virtual visit which was conducted using real time audio/video Vital Signs Date Time Temp Pulse Resp B/P (MAP) Pulse Ox O2 Delivery O2 Flow Rate FiO2 04/26/21 12:15 67 04/26/21 12:12 77 20 98 25 04/26/21 12:00 37.2 64 17 81/50 (60) 98 Mechanical Ventilator 30.00 04/26/21 11:00 37.3 66 38 79/51 (60) 97 Mechanical Ventilator 30.00 04/26/21 10:00 37.5 85 36 133/67 (89) 96 Mechanical Ventilator 30.00 04/26/21 09:55 77 20 98 25 04/26/21 09:00 37.5 66 14 103/55 (71) 100 Mechanical Ventilator 30.00 04/26/21 08:23 96 Mechanical Ventilator 30 04/26/21 08:00 37.6 79 21 76/54 (61) 95 Mechanical Ventilator 30.00 04/26/21 07:00 37.5 84 24 113/63 (80) 92 Mechanical Ventilator 30.00 04/26/21 06:54 93 04/26/21 06:51 98 26 93 30 04/26/21 06:00 37.5 79 24 126/69 (88) 96 Mechanical Ventilator 30.00 04/26/21 05:00 120 28 90 04/26/21 05:00 37.6 78 21 100/63 (75) 96 Mechanical Ventilator 30.00 04/26/21 04:35 37.8 04/26/21 04:00 96 Mechanical Ventilator 30 04/26/21 04:00 37.8 80 12 120/67 (84) 97 Mechanical Ventilator 30.00 04/26/21 03:00 37.9 79 101/57 (72) 98 Mechanical Ventilator 30.00 04/26/21 02:19 89 22 98 30 04/26/21 02:15 38.2 89 111/63 (79) 98 Mechanical Ventilator 30.00 04/26/21 01:09 38.2 04/26/21 01:00 38.1 106 23 177/88 (117) 91 Mechanical Ventilator 30.00 04/26/21 01:00 106 04/26/21 00:14 77 102/63 04/26/21 00:00 96 Mechanical Ventilator 30 04/26/21 00:00 38.1 82 22 108/66 (80) 95 Mechanical Ventilator 30.00 04/25/21 23:00 37.8 90 30 148/79 (102) 90 Mechanical Ventilator 30.00 04/25/21 22:00 37.8 109 25 149/67 (94) 92 Mechanical Ventilator 30.00 04/25/21 21:11 85 28 94 30 04/25/21 21:00 37.5 68 26 130/68 (88) 96 Mechanical Ventilator 30.00 04/25/21 20:00 37.5 71 19 110/63 (79) 94 Mechanical Ventilator 30.00 04/25/21 20:00 96 Mechanical Ventilator 30 04/25/21 19:00 75 04/25/21 19:00 37.3 75 22 113/65 (81) 95 Mechanical Ventilator 30.00 04/25/21 18:58 101 29 94 30 04/25/21 18:00 37.3 67 24 116/73 (87) 96 Mechanical Ventilator 30.00 04/25/21 17:40 Mechanical Ventilator 30.00 04/25/21 17:00 37.2 75 22 106/66 (79) 96 Mechanical Ventilator 35.00 04/25/21 16:15 97 Mechanical Ventilator 30 04/25/21 16:00 37.2 67 12 100/61 (74) 96 Mechanical Ventilator 35.00 04/25/21 15:00 37.2 63 21 140/77 (98) 99 Mechanical Ventilator 35.00 04/25/21 14:40 101 24 99 35 04/25/21 14:00 37.2 68 21 101/56 (71) 98 Mechanical Ventilator 35.00 04/25/21 13:12 100 15 144/79 04/25/21 13:00 37.2 63 21 108/66 (80) 99 Mechanical Ventilator 35.00 04/25/21 12:58 100 I & O 04/26/21 07:00 Intake Total 4850 ml Output Total 3575 ml Balance 1275 ml Height & Weight Height: '" Weight: lbs. oz. kg; 21.43 BMI Method: General Appearance: WD/WN, Chronically ill, Other (Sedated and intubated) HEENT: PERRL/EOMI Neck: Supple Respiratory: No Accessory Muscle Use, No Respiratory Distress, Rhonci, Wheezing Cardiovascular: Normal Peripheral Pulses, Irregularly Irregular, Other (afib per monitor) Capillary Refill: Less Than 3 Seconds Peripheral Pulses: 1+ Dorsalis Pedis (R), 1+ Left Dors-Pedis (L) (see free text), 1+ Radial Pulses (L) Gastrointestinal: normal bowel sounds, soft Extremity: Normal Capillary Refill, No Pedal Edema Neurologic/Psychiatric: Other (sedated) Skin: Normal Color, Warm/Dry Lymphatic: No Adenopathy Results Lab Laboratory Tests 04/25/21 03:45 04/26/21 03:58 Assessment/Plan Assessment/Plan (Tele-ICU Physician , Progress Note ) Available chart/ vitals / labs / Images reviewed Video assessment done using teleICU camera, rest of exam as per RN Discussed with RN , EXAM PER RN Events overnight : FEBRILE 37.5 I/O = neg 1000 Drips: Pressors: off 04/19 hemodynamically stable Sedation gtt: ( RASS -3 ) propofol 30 . fentanyl 150 VENT SETTINGS and ABG reviewed Not candidate for SBT today Contraindications: Sedation Score Consultants: arjun Hospital course: 04/11 - Vapotherm at 35 L and 85% 04/13 = to ICU , BiPAP 22/05 100% -> failed -> INTUBATED , peep 16 100% 04/14 - lisa/vaso , WBC 32 , AC 28 550 +12 55% 04/15 - hb ? 8.4 70 % +8 04/19 - AC 26 600 +16 70 % 04/20- AC 26 600 +12 50 % , NEW FEVER , possible aspiration , OFF pressors 04/22 - CTchest - bilat effusions 4 cm , infiltrtes L>R 04/26 - SBT 05/11 , elv WOB A/P AHRF / ARDS due to severe COVID19 -intubated 04/13 - now on AC 26 600 +5 25 % - Fio2 -- CTchest - bilat effusions 4 cm , infiltrtes L>R - sedation vaction follow commands , but inct cough - SBT 05/11 , elv WOB Shock - probly sepsis - OFF vasopressors -04/20 [id number]/COVID-19 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 , Dx 3 weeks [employer] - he took Ivermectin ) -Steroids IV - started 04/12- TAPERING 04/22- STOPPED 04/26 -Hypercoagulable state , DDIMER > 20 on 04/10 -> eliquis ( no evidence of large PE on CT 04/10 ) Suspected superimposed bact PNA ( week 3 of covid , legionella ab neg ) -empiric ceftriaxone 04/11 Cx sputum 04/13 post intubation - usual jack -NEW FEVER 04/20 - suspected aspiration even 04/20 -> was already on zosyn 04/16 ->04/21 STILL FEBRILE ,-04/22 CTchest - bilat effusions 4 cm , infiltrtes L>R , not sispected empyema or abscess by images - will repeat spum cx ( from still not reported ) , cx from LPICC and repeat UA Anemia - stable - will change PPI back to qd 04/19 A Fib of unknown duration (seen on admission on 04/11/21) - cards consulted - rate controlled CODE Status - FULL , as per notes on H&P : " He would be ok with being on the ventilator if needed. When asked about code status, he says, "Just try for one round and then let me go." Lines : Left femrol line 04/13 removed 04/14 . PICC 04/14 (Central Line Necessity Reviewed) Trotter: 04/13 OG: + Nutrition: TF - 04/20 - REglan ( KUB , WNL ) TOLERATES TF 04/21 Analgesia: Anxiety/ delirium VTE Prophylaxis: eliquis Stress Ulcer Prophylaxis: PO Glycemic Control: Plans in collaboration with bedside consultants and IM MDs. Discussed with RN to reach out if any questions or concerns A total of 40 minutes of critical care time was devoted to this patient today, required to treat and/or prevent further deterioration of critical care condition ( as above) . NNAMDI KRUSE MD Apr 26, 2021 12:48
[2021-04-26 15:54] LABS: BILIRUBIN,URINE NEGATIVE (NEGATIVE); CLARITY,URINE CLEAR; COLOR,URINE YELLOW; GLUCOSE, URINE (UA) NEGATIVE (NEGATIVE); KETONES,URINE NEGATIVE (NEGATIVE); LEUKOCYTE ESTERASE ,URINE NEGATIVE (NEGATIVE); NITRITE,URINE NEGATIVE (NEGATIVE); PROTEIN,URINE NEGATIVE (NEGATIVE)
[2021-04-26 16:08] LABS: AMORPHOUS SEDIMENT,UR FEW AMOR URATES /LPF; BACTERIA,URINE TRACE /HPF; WBC,URINE 0-2 /HPF
[2021-04-26] MEDS: AtorvaSTATin TABLET 10 MG TABLET PO SCH (20:42)
[2021-04-26] MEDS: MIDAZOLAM DRIP PRE-MIX 100 ML IV SCH (22:51)
[2021-04-27] VITALS (30 sets, daily range): BP systolic 76–155; BP diastolic 49–123
[2021-04-27] MEDS: PROPOFOL DRIP (ICU) 100 ML IV SCH (01:23)
[2021-04-27] MEDS: RT-ALBUTEROL HFA 8.5 GM INHALER IH SCH ×6 (01:47→22:30)
[2021-04-27 03:12] LABS: BASOPHILS # (AUTO) 0.1 10^3/uL (0.0-0.1); BASOPHILS % (AUTO) 0 % (0-10); EOSINOPHILS # (AUTO) 0.1 10^3/uL (0.0-0.3); EOSINOPHILS % (AUTO) 1 % (0-10); HEMATOCRIT 39 % (40-54); HEMOGLOBIN 12.9 g/dL (13.3-17.7); LYMPHOCYTES # (AUTO) 0.9 10^3/uL (1.0-4.0); LYMPHOCYTES % (AUTO) 5 % (12-44); MEAN CORPUSCULAR HEMOGLOBIN 31 pg (25-34); MEAN CORPUSCULAR HGB CONC 34 g/dL (32-36); MEAN CORPUSCULAR VOLUME 93 fL (80-99); MEAN PLATELET VOLUME 10.2 fL (9.0-12.2); MONOCYTES # (AUTO) 0.7 10^3/uL (0.0-1.0); MONOCYTES % (AUTO) 4 % (0-12); NEUTROPHILS # (AUTO) 15.2 10^3/uL (1.8-7.8); NEUTROPHILS % (AUTO) 88 % (42-75); PLATELET COUNT 459 10^3/uL (130-400); WHITE BLOOD COUNT 17.3 10^3/uL (4.3-11.0)
[2021-04-27 03:13] LABS: ABG BASE EXCESS 1.2 MMOL/L (-2.5-2.5); ABG OXYGEN SATURATION 91 % (94-100); ABG PCO2 37 MMHG (35-45); ABG PH 7.45 (7.37-7.43); ABG PO2 59 MMHG (79-93); ABG TCO2 25.8 MMOL/L (21.0-31.0)
[2021-04-27 03:14] LABS: ALLENS TEST ART LINE; INSPIRED O2 35%; PATIENT TEMP 37.8; VENTILATOR YES
[2021-04-27 03:21] LABS: ALBUMIN 2.1 GM/DL (3.2-4.5)
[2021-04-27 03:23] LABS: CALCIUM 7.7 MG/DL (8.5-10.1)
[2021-04-27 03:24] LABS: TOTAL PROTEIN 5.1 GM/DL (6.4-8.2)
[2021-04-27 03:26] LABS: BILIRUBIN,TOTAL 0.6 MG/DL (0.1-1.0)
[2021-04-27 03:27] LABS: PHOSPHORUS 3.2 MG/DL (2.3-4.7)
[2021-04-27 03:28] LABS: CREATININE SERUM 0.58 MG/DL (0.60-1.30)
[2021-04-27 03:30] LABS: MAGNESIUM 1.9 MG/DL (1.6-2.4)
[2021-04-27] MEDS: CISATRACURIUM DRIP 250 ML IV SCH ×4 (03:56→22:20)
[2021-04-27] MEDS: fentaNYL DRIP PRE-MIX 250 ML IV SCH ×2 (05:02→21:08)
[2021-04-27] MEDS: METOCLOPRAMIDE INJ 10 MG/2 ML (REGLAN) IVP SCH (05:02)
[2021-04-27] MEDS: MAGNESIUM 1 GM/100 ML IVPB 100 ML IV SCH (06:13)
[2021-04-27] MEDS: POTASSIUM CL 10MEQ/50ML IVPB 50 ML IV SCH (06:13)
[2021-04-27] MEDS: inSUlin ASPART (NovoLOG) 1 UNIT/0.01 ML (CHARGE PER UNIT) SQ SCH ×4 (06:14→23:57)
[2021-04-27] MEDS: KCL 20 MEQ TAB (K-DUR) PO SCH (06:14)
--- NOTE | 2021-04-27 06:56 | Occ Therapy Progress Note ---
Therapy Progress Note Pt currently intubated. OT will continue to monitor pt status and initiate treatment when pt is medically stable and able to actively participate in skilled therapy. MICHI AMAYA Apr 27, 2021 06:56
[2021-04-27] MEDS ORDERED: ANIDULAFUNGIN INJECTION 200 MG in NS (IVPB) 250 ML IV NR (08:30)
--- NOTE | 2021-04-27 08:32 | Pulmonary Progress Note ---
BISHOP FRANCES MED STUDENT 04/27/21 0832: Subjective Date Seen by a Provider: Apr 27, 2021 Time Seen by a Provider: 07:25 Subjective/Events-last exam Remains sedated and intubated. Remains on propofol, versed, and fentanyl drips. No acute events to report on overnight per night nurse. Review of Systems General: Other (unable to obtain) HEENT: Other (unable to obtain) Cardiovascular: Other (unable to obtain) Gastrointestinal: Other (unable to obtain) Genitourinary: Other (unable to obtain) Musculoskeletal: other (unable to obtain) Neurological: Other (unable to obtain) Sepsis Event Evaluation Height, Weight, BMI Height: '" Weight: lbs. oz. kg; 21.43 BMI Method: Exam Exam Patient acknowledged, consented, and participated in this virtual visit which was conducted using real time audio/video Vital Signs Date Time Temp Pulse Resp B/P (MAP) Pulse Ox O2 Delivery O2 Flow Rate FiO2 04/27/21 06:46 70 18 97 35 04/27/21 06:00 37.7 68 17 89/59 (69) 97 Mechanical Ventilator 35.00 04/27/21 05:00 37.8 68 17 89/59 (69) 96 Mechanical Ventilator 35.00 04/27/21 05:00 120 28 90 04/27/21 04:00 96 Mechanical Ventilator 35 04/27/21 04:00 37.8 66 17 97/64 (75) 97 Mechanical Ventilator 35.00 04/27/21 03:15 37.8 73 19 99/67 (78) 97 Mechanical Ventilator 35.00 04/27/21 02:00 37.6 72 21 121/74 (90) 95 Mechanical Ventilator 35.00 04/27/21 01:47 111 26 87 25 04/27/21 01:28 Mechanical Ventilator 35.00 04/27/21 01:23 50 113/69 04/27/21 01:00 37.5 74 92/58 (69) 85 Mechanical Ventilator 25.00 04/27/21 01:00 74 04/27/21 00:00 96 Mechanical Ventilator 25 04/27/21 00:00 37.2 73 17 136/77 (96) 95 Mechanical Ventilator 25.00 04/26/21 23:00 37.2 50 17 113/69 (84) 92 Mechanical Ventilator 25.00 04/26/21 22:51 56 11 101/60 04/26/21 22:00 37.1 56 11 101/60 (74) 96 Mechanical Ventilator 25.00 04/26/21 21:54 98 26 96 25 04/26/21 21:00 37.2 51 14 93/54 (67) 95 Mechanical Ventilator 25.00 04/26/21 20:00 Mechanical Ventilator 25.00 04/26/21 20:00 96 Mechanical Ventilator 25 04/26/21 20:00 37.2 53 17 110/57 (74) 92 Mechanical Ventilator 25.00 04/26/21 19:00 37.2 81 11 110/63 (79) 93 Mechanical Ventilator 30.00 04/26/21 19:00 81 04/26/21 18:52 96 26 96 25 04/26/21 18:00 37.1 67 19 127/68 (87) 94 Mechanical Ventilator 30.00 04/26/21 17:00 37.1 64 22 151/74 (99) 95 Mechanical Ventilator 30.00 04/26/21 16:00 96 Mechanical Ventilator 30 04/26/21 16:00 37.1 65 19 88/52 (64) 96 Mechanical Ventilator 30.00 04/26/21 15:00 37.2 79 26 127/68 (87) 94 Mechanical Ventilator 30.00 04/26/21 14:35 65 21 97 25 04/26/21 14:00 37.2 94 28 153/78 (103) 94 Mechanical Ventilator 30.00 04/26/21 13:00 37.1 71 20 100/57 (71) 96 Mechanical Ventilator 30.00 04/26/21 12:15 67 04/26/21 12:12 77 20 98 25 04/26/21 12:00 37.2 64 17 81/50 (60) 98 Mechanical Ventilator 30.00 04/26/21 12:00 96 Mechanical Ventilator 30 04/26/21 11:00 37.3 66 38 79/51 (60) 97 Mechanical Ventilator 30.00 04/26/21 10:00 37.5 85 36 133/67 (89) 96 Mechanical Ventilator 30.00 04/26/21 09:55 77 20 98 25 04/26/21 09:00 37.5 66 14 103/55 (71) 100 Mechanical Ventilator 30.00 I & O 04/27/21 07:00 Intake Total 3150 ml Output Total 3225 ml Balance -75 ml Height & Weight Height: '" Weight: lbs. oz. kg; 21.43 BMI Method: General Appearance: WD/WN, Chronically ill, Other (Sedated and intubated) HEENT: PERRL/EOMI Neck: Supple Respiratory: No Accessory Muscle Use, No Respiratory Distress, Rhonci, Wheezing Cardiovascular: Normal Peripheral Pulses, Irregularly Irregular, Other (afib per monitor) Capillary Refill: Less Than 3 Seconds Peripheral Pulses: 1+ Dorsalis Pedis (R), 1+ Left Dors-Pedis (L) (see free t ext), 1+ Radial Pulses (L) Gastrointestinal: normal bowel sounds, soft; No distended Extremity: Normal Capillary Refill, No Pedal Edema Neurologic/Psychiatric: Other (sedated) Skin: Normal Color, Warm/Dry Lymphatic: No Adenopathy Results Lab Laboratory Tests 04/26/21 03:58 04/27/21 03:02 Assessment/Plan Assessment/Plan Acute hypoxic respiratory failure/ARDS -continue ventilatory management -TV 600. FIO2 35%. PEEP 5. RR 18 - SBT today -attempt to wean sedation further -family in agreement with trach and PEG if need be COVID-19 PNA -04-26 Single view the chest demonstrates unchanged bilateral pulmonary infiltrates -04-23-21 CT 1. Evolution of previously seen COVID-19 pneumonia which is now comprised mostly of peripheral consolidation which remains moderate in severity. - New moderate bilateral pleural effusions and diffuse body wall edema. -decadron dc'd 04-26 Leukocytosis/fevers -meropenen and anidulafungin added today -awaiting culture of PICC Shock -resolved, pressors off since 04-19 Hypoalbuminemia -albumin 2.1 -continue to monitor Anemia -hgb 12.9 today, stable -continue to monitor Elevated AST/ALT -mildly elevated -continue to monitor Hypercoagulable state associated with COVID-19 -d dimer on 04-15, 4.31 -eliquis Atrial fibrillation -eliquis GI ppx -protonix PICC: 04/14 Trotter: 04/13 OGT: TF's R radial art line: 04/13 NNAMDI KRUSE MD 04/27/21 1253: Supervisory-Addendum Brief Verification & Attestation Participated in pt care: history, MDM, physical Personally performed: history, MDM, supervision of care Care discussed with: Medical Student Procedures: n/a A medical student performed and documented this service. I reviewed all information documented by the medical student . Medical student performed patients physical exam . Medical decision making was done during tele-rounds with this medical student and a bedside RN . Please see my notes for details /clarification. BISHOP FRANCES MED STUDENT Apr 27, 2021 08:32 NNAMDI KRUSE MD Apr 27, 2021 12:53
[2021-04-27] MEDS: APIXABAN 5 MG (ELIQUIS) TABLET PO SCH ×2 (09:25→21:08)
[2021-04-27] MEDS: PANTOPRAZOLE 40 MG (PROTONIX) VIAL IV SCH (09:26)
[2021-04-27] MEDS: MEROPENEM 1,000 MG in WATER (STERILE) FOR INJECTION 20 ML IV SCH ×2 (09:29→16:27)
--- NOTE | 2021-04-27 10:13 | Tele-ICU Progress Note ---
Subjective Date Seen by a Provider: Apr 27, 2021 Time Seen by a Provider: 10:13 Sepsis Event Evaluation Height, Weight, BMI Height: '" Weight: lbs. oz. kg; 21.43 BMI Method: Exam Exam Patient acknowledged, consented, and participated in this virtual visit which was conducted using real time audio/video Vital Signs Date Time Temp Pulse Resp B/P (MAP) Pulse Ox O2 Delivery O2 Flow Rate FiO2 04/27/21 07:00 67 04/27/21 06:46 70 18 97 35 04/27/21 06:00 37.7 68 17 89/59 (69) 97 Mechanical Ventilator 35.00 04/27/21 05:00 37.8 68 17 89/59 (69) 96 Mechanical Ventilator 35.00 04/27/21 05:00 120 28 90 04/27/21 04:00 96 Mechanical Ventilator 35 04/27/21 04:00 37.8 66 17 97/64 (75) 97 Mechanical Ventilator 35.00 04/27/21 03:15 37.8 73 19 99/67 (78) 97 Mechanical Ventilator 35.00 04/27/21 02:00 37.6 72 21 121/74 (90) 95 Mechanical Ventilator 35.00 04/27/21 01:47 111 26 87 25 04/27/21 01:28 Mechanical Ventilator 35.00 04/27/21 01:23 50 113/69 04/27/21 01:00 37.5 74 92/58 (69) 85 Mechanical Ventilator 25.00 04/27/21 01:00 74 04/27/21 00:00 96 Mechanical Ventilator 25 04/27/21 00:00 37.2 73 17 136/77 (96) 95 Mechanical Ventilator 25.00 04/26/21 23:00 37.2 50 17 113/69 (84) 92 Mechanical Ventilator 25.00 04/26/21 22:51 56 11 101/60 04/26/21 22:00 37.1 56 11 101/60 (74) 96 Mechanical Ventilator 25.00 04/26/21 21:54 98 26 96 25 04/26/21 21:00 37.2 51 14 93/54 (67) 95 Mechanical Ventilator 25.00 04/26/21 20:00 Mechanical Ventilator 25.00 04/26/21 20:00 96 Mechanical Ventilator 25 04/26/21 20:00 37.2 53 17 110/57 (74) 92 Mechanical Ventilator 25.00 04/26/21 19:00 37.2 81 11 110/63 (79) 93 Mechanical Ventilator 30.00 04/26/21 19:00 81 04/26/21 18:52 96 26 96 25 04/26/21 18:00 37.1 67 19 127/68 (87) 94 Mechanical Ventilator 30.00 04/26/21 17:00 37.1 64 22 151/74 (99) 95 Mechanical Ventilator 30.00 04/26/21 16:00 96 Mechanical Ventilator 30 04/26/21 16:00 37.1 65 19 88/52 (64) 96 Mechanical Ventilator 30.00 04/26/21 15:00 37.2 79 26 127/68 (87) 94 Mechanical Ventilator 30.00 04/26/21 14:35 65 21 97 25 04/26/21 14:00 37.2 94 28 153/78 (103) 94 Mechanical Ventilator 30.00 04/26/21 13:00 37.1 71 20 100/57 (71) 96 Mechanical Ventilator 30.00 04/26/21 12:15 67 04/26/21 12:12 77 20 98 25 04/26/21 12:00 37.2 64 17 81/50 (60) 98 Mechanical Ventilator 30.00 04/26/21 12:00 96 Mechanical Ventilator 30 04/26/21 11:00 37.3 66 38 79/51 (60) 97 Mechanical Ventilator 30.00 I & O 04/27/21 07:00 Intake Total 3150 ml Output Total 3225 ml Balance -75 ml Height & Weight Height: '" Weight: lbs. oz. kg; 21.43 BMI Method: General Appearance: WD/WN, Chronically ill, Other (Sedated and intubated) HEENT: PERRL/EOMI Neck: Supple Respiratory: No Accessory Muscle Use, No Respiratory Distress, Rhonci, Wheezing Cardiovascular: Normal Peripheral Pulses, Irregularly Irregular, Other (afib per monitor) Capillary Refill: Less Than 3 Seconds Peripheral Pulses: 1+ Dorsalis Pedis (R), 1+ Left Dors-Pedis (L) (see free text), 1+ Radial Pulses (L) Gastrointestinal: normal bowel sounds, soft; No distended Extremity: Normal Capillary Refill, No Pedal Edema Neurologic/Psychiatric: Other (sedated) Skin: Normal Color, Warm/Dry Lymphatic: No Adenopathy Results Lab Laboratory Tests 04/26/21 03:58 04/27/21 03:02 Assessment/Plan Assessment/Plan (Tele-ICU Physician , Progress Note ) Available chart/ vitals / labs / Images reviewed Video assessment done using teleICU camera, rest of exam as per RN Discussed with RN , EXAM PER RN Events overnight : . more hypotensive FEBRILE 37.5 I/O = pos 1200 Drips: Pressors: off 04/19 hemodynamically stable Sedation gtt: ( RASS -3 ) propofol 4 . fentanyl 75 versed 4 VENT SETTINGS and ABG reviewed Consultants: arjun Hospital course: 04/11 - Vapotherm at 35 L and 85% 04/13 = to ICU , BiPAP 22/05 100% -> failed -> INTUBATED , peep 16 100% 04/14 - lisa/vaso , WBC 32 , AC 28 550 +12 55% 04/15 - hb ? 8.4 70 % +8 04/19 - AC 26 600 +16 70 % 04/20- AC 26 600 +12 50 % , NEW FEVER , possible aspiration , OFF pressors 04/22 - CTchest - bilat effusions 4 cm , infiltrtes L>R 04/26 - SBT 05/11 , elv WOB A/P AHRF / ARDS due to severe COVID19 -intubated 04/13 - now on AC 18 600 +5 35% - Fio2 -- CTchest - bilat effusions 4 cm , infiltrtes L>R - sedation vaction follow commands , but inct cough - SBT 05/11 , elv WOB on 04/26 - to cont Shock - probly sepsis - OFF vasopressors -04/20 [id number]-19 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 , Dx 3 weeks PLATE [employer] - he took Ivermectin ) -Steroids IV - started 04/12- TAPERING 04/22- STOPPED 04/26 -Hypercoagulable state , DDIMER > 20 on 04/10 -> eliquis ( no evidence of large PE on CT 04/10 ) Suspected superimposed bact PNA ( week 3 of covid , legionella ab neg ) -empiric ceftriaxone 04/11 Cx sputum 04/13 post intubation - usual jack -NEW FEVER 04/20 - suspected aspiration even 04/20 -> was already on zosyn 04/16 ->04/21 STILL FEBRILE ,-04/22 CTchest - bilat effusions 4 cm , infiltrtes L>R , not sispected empyema or abscess by images - will repeat spum cx ( from still not reported ) , cx from LPICC and repeat UA 04/27 - started on merrem and antifungal Anemia - stable - will change PPI back to qd 04/19 A Fib of unknown duration (seen on admission on 04/11/21) - cards consulted - rate controlled CODE Status - FULL , as per notes on H&P : " He would be ok with being on the ventilator if needed. When asked about code status, he says, "Just try for one round and then let me go." Lines : Left femrol line 04/13 removed 04/14 . PICC 04/14 (Central Line Necessity Reviewed) Trotter: 04/13 OG: + Nutrition: TF - 04/20 - REglan ( KUB , WNL ) TOLERATES TF 04/21 - regaln to prn 04/27 Analgesia: Anxiety/ delirium VTE Prophylaxis: eliquis Stress Ulcer Prophylaxis: PO Glycemic Control: Plans in collaboration with bedside consultants and IM MDs. Discussed with RN to reach out if any questions or concerns A total of 40 minutes of critical care time was devoted to this patient today, required to treat and/or prevent further deterioration of critical care condition ( as above) . NNAMDI KRUSE MD Apr 27, 2021 10:13
--- NOTE | 2021-04-27 10:35 | Progress Note ---
Subjective Date Seen by a Provider: Apr 27, 2021 Time Seen by a Provider: 11:00 Subjective/Events-last exam Pt about the same Will need trach and peg if it continues Weaning trial initiated Overall doing pretty well Back in isolation per infection control mandate Objective Exam Last Set of Vital Signs Vital Signs Date Time Temp Pulse Resp B/P (MAP) Pulse Ox O2 Delivery O2 Flow Rate FiO2 04/27/21 10:27 56 18 98 35 04/27/21 06:00 37.7 89/59 (69) Mechanical Ventilator 35.00 Capillary Refill : Less Than 3 Seconds I&O Intake and Output 04/27/21 00:00 Intake Total 4510 ml Output Total 3225 ml Balance 1285 ml IV Total 2500 ml Tube Feeding 1360 ml Other 650 ml Output Urine Total 3225 ml General: Other (Sedated and intubated) Lungs: Other (Coarse breath sounds) Heart: Regular Rate Results Lab Laboratory Tests 04/26/21 12:16: Glucometer 121H 04/26/21 15:00: Urine Color YELLOW, Urine Clarity CLEAR, Urine pH 6.0, Urine Specific [place] 1.010L, Urine Protein NEGATIVE, Urine Glucose (UA) NEGATIVE, Urine Ketones NEGATIVE, Urine Nitrite NEGATIVE, Urine Bilirubin NEGATIVE, Urine Urobilinogen 0.2, Urine Leukocyte Esterase NEGATIVE, Urine RBC (Auto) TRACE-I, Urine RBC 2-5H , Urine WBC 0-2, Urine Crystals PRESENTH, Urine Amorphous Sediment FEW SOTERO URATESH, Urine Bacteria TRACE, Urine Casts NONE, Urine Mucus NEGATIVE, Urine Culture Indicated NO 04/26/21 17:31: Glucometer 103 04/27/21 03:02: White Blood Count 17.3H, Red Blood Count 4.14L, Hemoglobin 12.9L, Hematocrit 39L , Mean Corpuscular Volume 93, Mean Corpuscular Hemoglobin 31, Mean Corpuscular Hemoglobin Concent 34, Red Cell Distribution Width 14.4, Platelet Count 459H, Mean Platelet Volume 10.2, Immature Granulocyte % (Auto) 1, Neutrophils (%) (Auto) 88H, Lymphocytes (%) (Auto) 5L, Monocytes (%) (Auto) 4, Eosinophils (%) (Auto) 1, Basophils (%) (Auto) 0, Neutrophils # (Auto) 15.2H, Lymphocytes # (Auto) 0.9L, Monocytes # (Auto) 0.7, Eosinophils # (Auto) 0.1, Basophils # (Auto ) 0.1, Immature Granulocyte # (Auto) 0.3H, Blood Gas Puncture Site ART LINE, Blood Gas Patient Temperature 37.8, Arterial Blood pH 7.45H, Arterial Blood Partial Pressure CO2 37, Arterial Blood Partial Pressure O2 59L, Arterial Blood HCO3 25, Arterial Blood Total CO2 25.8, Arterial Blood Oxygen Saturation 91L, Arterial Blood Base Excess 1.2, Aldo Test ART LINE, Blood Gas Ventilator Setting YES, Blood Gas Inspired Oxygen 35%, Sodium Level 138, Potassium Level 4.0, Chloride Level 108H, Carbon Dioxide Level 22, Anion Gap 8, Blood Urea Nitrogen 15, Creatinine 0.58L, Estimat Glomerular Filtration Rate 137, BUN/Creatinine Ratio 26, Glucose Level 89, Calcium Level 7.7L, Corrected Calcium 9.2, Phosphorus Level 3.2, Magnesium Level 1.9, Total Bilirubin 0.6, Aspartate Amino Transf (AST/SGOT) 48H, Alanine Aminotransferase (ALT/SGPT) 113H, Alkaline Phosphatase 172H, Total Protein 5.1L, Albumin 2.1L Microbiology 04/22/21 Blood Culture - Preliminary, Resulted No growth 04/13/21 Gram Stain - Final, Complete 04/13/21 Sputum Culture - Final, Complete Usual upper respiratory jack Assessment/Plan Assessment/Plan Assess & Plan/Chief Complaint Assessment: COVID-19 pneumonia Acute hypoxic respiratory failure Ventilator dependence Status post bacterial pneumonia Plan: Supportive care Ventilator management appreciated 04/25/2021: Spoke to Steven zamora trach and PEG may be needed and he agrees with plan Not weanable yet DC isolation 04/26/2021: Trach and PEG may be required Supportive care 04/27/2021: Supportive care Monitor closely COTY SHIPMAN DO Apr 27, 2021 10:35
[2021-04-27] MEDS ORDERED: METOCLOPRAMIDE INJ 10 MG/2 ML (REGLAN) IVP PRN (12:00)
--- NOTE | 2021-04-27 14:44 | Progress Note - Cardiology ---
Cardiology SOAP Progress Note Subjective: Intubated, on mech vent, not responsive Objective: I&O/Vital Signs 04/27/21 04/27/21 04/27/21 04/27/21 03:15 04:00 04:00 05:00 Temp 37.8 37.8 Pulse 73 66 120 Resp 19 17 28 B/P (MAP) 99/67 (78) 97/64 (75) Pulse Ox 97 97 96 90 O2 Delivery Mechanical Ventilator Mechanical Ventilator Mechanical Ventilator O2 Flow Rate 35.00 35.00 FiO2 35 04/27/21 04/27/21 04/27/21 04/27/21 05:00 06:00 06:46 07:00 Temp 37.8 37.7 Pulse 68 68 70 67 Resp 17 17 18 B/P (MAP) 89/59 (69) 89/59 (69) Pulse Ox 96 97 97 O2 Delivery Mechanical Ventilator Mechanical Ventilator O2 Flow Rate 35.00 35.00 FiO2 35 04/27/21 04/27/21 04/27/21 04/27/21 07:00 08:00 09:00 10:00 Temp 37.7 Pulse 78 65 65 70 Resp 17 17 66 66 B/P (MAP) 94/60 (71) 79/53 (62) 76/49 (58) 76/49 (58) Pulse Ox 97 97 97 97 O2 Delivery Mechanical Ventilator Mechanical Ventilator Mechanical Ventilator Mechanical Ventilator O2 Flow Rate 35.00 35.00 35.00 35.00 04/27/21 04/27/21 04/27/21 04/27/21 10:27 11:00 12:00 13:00 Pulse 56 56 72 82 Resp 18 17 25 B/P (MAP) 97/62 (74) 118/70 (86) Pulse Ox 98 97 97 O2 Delivery Mechanical Ventilator Mechanical Ventilator O2 Flow Rate 35.00 35.00 FiO2 35 04/27/21 04/27/21 04/27/21 13:00 14:00 14:39 Pulse 104 103 78 Resp 92 22 18 B/P (MAP) 155/81 (105) 126/123 (124) Pulse Ox 92 100 93 O2 Delivery Mechanical Ventilator Mechanical Ventilator O2 Flow Rate 35.00 35.00 FiO2 35 04/27/21 00:00 Intake Total 2100 ml Output Total 1775 ml Balance 325 ml Constitutional: other (Intubated, on mech vent, unable to communicate; I did not physically examine the patient to reduce exposure to COVID-19) Results/Procedures: Labs Laboratory Tests 04/26/21 15:00: Urine Color YELLOW, Urine Clarity CLEAR, Urine pH 6.0, Urine Specific [place] 1.010L, Urine Protein NEGATIVE, Urine Glucose (UA) NEGATIVE, Urine Ketones NEGATIVE, Urine Nitrite NEGATIVE, Urine Bilirubin NEGATIVE, Urine Urobilinogen 0.2, Urine Leukocyte Esterase NEGATIVE, Urine RBC (Auto) TRACE-I, Urine RBC 2-5H , Urine WBC 0-2, Urine Crystals PRESENTH, Urine Amorphous Sediment FEW SOTERO URATESH, Urine Bacteria TRACE, Urine Casts NONE, Urine Mucus NEGATIVE, Urine Culture Indicated NO 04/26/21 17:31: Glucometer 103 04/27/21 03:02: White Blood Count 17.3H, Red Blood Count 4.14L, Hemoglobin 12.9L, Hematocrit 39L , Mean Corpuscular Volume 93, Mean Corpuscular Hemoglobin 31, Mean Corpuscular Hemoglobin Concent 34, Red Cell Distribution Width 14.4, Platelet Count 459H, Mean Platelet Volume 10.2, Immature Granulocyte % (Auto) 1, Neutrophils (%) (Auto) 88H, Lymphocytes (%) (Auto) 5L, Monocytes (%) (Auto) 4, Eosinophils (%) (Auto) 1, Basophils (%) (Auto) 0, Neutrophils # (Auto) 15.2H, Lymphocytes # (Auto) 0.9L, Monocytes # (Auto) 0.7, Eosinophils # (Auto) 0.1, Basophils # (Auto) 0.1, Immature Granulocyte # (Auto) 0.3H, Blood Gas Puncture Site ART LINE, Blood Gas Patient Temperature 37.8, Arterial Blood pH 7.45H, Arterial Blood Partial Pressure CO2 37, Arterial Blood Partial Pressure O2 59L, Arterial Blood HCO3 25, Arterial Blood Total CO2 25.8, Arterial Blood Oxygen Saturation 91L, Arterial Blood Base Excess 1.2, Aldo Test ART LINE, Blood Gas Ventilator Setting YES, Blood Gas Inspired Oxygen 35%, Sodium Level 138, Potassium Level 4.0, Chloride Level 108H, Carbon Dioxide Level 22, Anion Gap 8, Blood Urea Nitrogen 15, Creatinine 0.58L, Estimat Glomerular Filtration Rate 137, BUN/Creatinine Ratio 26, Glucose Level 89, Calcium Level 7.7L, Corrected Calcium 9.2, Phosphorus Level 3.2, Magnesium Level 1.9, Total Bilirubin 0.6, Aspartate Amino Transf (AST/SGOT) 48H, Alanine Aminotransferase (ALT/SGPT) 113H, Alkaline Phosphatase 172H, Total Protein 5.1L, Albumin 2.1L 04/27/21 12:53: Glucometer 103 Microbiology 04/22/21 Blood Culture - Preliminary, Resulted No growth 04/13/21 Gram Stain - Final, Complete 04/13/21 Sputum Culture - Final, Complete Usual upper respiratory jack Laboratory Tests 04/26/21 03:58 04/27/21 03:02 A/P: Assessment: COVID-19 pneumonia progressing to resp failure and requiring mechanical ventilation A Fib of unknown duration (seen on admission on 04/11/21), ventricular rate is well-controlled - OAC with Eliquis Plan: * Cardiac status is essentially unchanged * Hospitalist and ICU services are managing COVID-19 and pneumonia and resp failure * Ventricular rate from A Fib continues to remain controlled * Continue anticoag for stroke prophylaxis * Monitor labs RONNIE RAMIREZ MD FACP [facility] Apr 27, 2021 14:44
[2021-04-27] MEDS: 1/2 NS IV SOLUTION 1,000 ML IV SCH (16:35)
[2021-04-27] MEDS: AtorvaSTATin TABLET 10 MG TABLET PO SCH (21:08)
[2021-04-27] MEDS: MIDAZOLAM DRIP PRE-MIX 100 ML IV SCH (23:43)
[2021-04-28] VITALS (29 sets, daily range): BP systolic 80–162; BP diastolic 47–96
[2021-04-28] MEDS: MEROPENEM 1,000 MG in WATER (STERILE) FOR INJECTION 20 ML IV SCH ×3 (00:13→15:20)
[2021-04-28] MEDS ORDERED: NS IV 1000 ML 1,000 ML ONE (00:52)
[2021-04-28] MEDS: RT-ALBUTEROL HFA 8.5 GM INHALER IH SCH ×6 (02:52→22:45)
[2021-04-28] MEDS: ACETAMINOPHEN 500 MG TAB (TYLENOL) PO PRN ×2 (03:40→14:28)
[2021-04-28 04:04] LABS: ABG BASE EXCESS 1.6 MMOL/L (-2.5-2.5); ABG OXYGEN SATURATION 91 % (94-100); ABG PCO2 33 MMHG (35-45); ABG PH 7.49 (7.37-7.43); ABG PO2 61 MMHG (79-93); ABG TCO2 25.5 MMOL/L (21.0-31.0); BASOPHILS # (AUTO) 0.1 10^3/uL (0.0-0.1); BASOPHILS % (AUTO) 1 % (0-10); EOSINOPHILS # (AUTO) 0.3 10^3/uL (0.0-0.3); EOSINOPHILS % (AUTO) 2 % (0-10); HEMATOCRIT 41 % (40-54); HEMOGLOBIN 13.5 g/dL (13.3-17.7); LYMPHOCYTES % (AUTO) 8 % (12-44); MEAN CORPUSCULAR HEMOGLOBIN 31 pg (25-34); MEAN CORPUSCULAR HGB CONC 33 g/dL (32-36); MEAN CORPUSCULAR VOLUME 93 fL (80-99); MEAN PLATELET VOLUME 10.2 fL (9.0-12.2); MONOCYTES # (AUTO) 0.6 10^3/uL (0.0-1.0); MONOCYTES % (AUTO) 5 % (0-12); NEUTROPHILS % (AUTO) 82 % (42-75); PLATELET COUNT 484 10^3/uL (130-400); WHITE BLOOD COUNT 12.1 10^3/uL (4.3-11.0)
[2021-04-28 04:07] LABS: ALLENS TEST ART LINE; INSPIRED O2 35%; PATIENT TEMP 38.2; VENTILATOR YES
[2021-04-28 04:15] LABS: ALBUMIN 2.1 GM/DL (3.2-4.5); POTASSIUM 4.1 MMOL/L (3.6-5.0)
[2021-04-28 04:16] LABS: CALCIUM 7.8 MG/DL (8.5-10.1)
[2021-04-28 04:18] LABS: TOTAL PROTEIN 5.4 GM/DL (6.4-8.2)
[2021-04-28 04:19] LABS: BILIRUBIN,TOTAL 0.7 MG/DL (0.1-1.0)
[2021-04-28 04:21] LABS: CREATININE SERUM 0.6 MG/DL (0.60-1.30); PHOSPHORUS 3.1 MG/DL (2.3-4.7)
[2021-04-28 04:24] LABS: MAGNESIUM 1.9 MG/DL (1.6-2.4)
[2021-04-28] MEDS: CISATRACURIUM DRIP 250 ML IV SCH ×3 (04:37→17:12)
[2021-04-28] MEDS: POTASSIUM CL 10MEQ/50ML IVPB 50 ML IV SCH (04:59)
[2021-04-28] MEDS: inSUlin ASPART (NovoLOG) 1 UNIT/0.01 ML (CHARGE PER UNIT) SQ SCH ×3 (04:59→18:21)
[2021-04-28] MEDS: KCL 20 MEQ TAB (K-DUR) PO SCH (04:59)
[2021-04-28] MEDS: MAGNESIUM 1 GM/100 ML IVPB 100 ML IV SCH (04:59)
--- NOTE | 2021-04-28 06:50 | Occ Therapy Progress Note ---
Therapy Progress Note Pt is currently intubated. OT will discharge pt at this time. OT will require new orders to initiate treatment when pt is deemed medically stable and able to actively participate with skilled therapy. MICHI AMAYA Apr 28, 2021 06:50
--- NOTE | 2021-04-28 08:40 | Pulmonary Progress Note ---
BISHOP FRANCES MED STUDENT 04/28/21 0840: Subjective Date Seen by a Provider: Apr 28, 2021 Time Seen by a Provider: 07:00 Subjective/Events-last exam Patient remains sedated and intubated. Vitals stable per bedside monitor. No acute events overnight per night RN. Review of Systems General: Other (unable to obtain) HEENT: Other (unable to obtain) Pulmonary: Other (unable to obtain) Cardiovascular: Other (unable to obtain) Gastrointestinal: Other (unable to obtain) Genitourinary: Other (unable to obtain) Musculoskeletal: other (unable to obtain) Neurological: Other (unable to obtain) Sepsis Event Evaluation Height, Weight, BMI Height: '" Weight: lbs. oz. kg; 21.43 BMI Method: Exam Exam Patient acknowledged, consented, and participated in this virtual visit which was conducted using real time audio/video Vital Signs Date Time Temp Pulse Resp B/P (MAP) Pulse Ox O2 Delivery O2 Flow Rate FiO2 04/28/21 07:10 100 18 97 35 04/28/21 06:05 37.6 105 16 100/63 (75) 98 Mechanical Ventilator 35.00 04/28/21 05:15 37.9 97 17 94/68 (77) 99 Mechanical Ventilator 35.00 04/28/21 05:00 95 28 93 04/28/21 04:10 38.1 04/28/21 04:00 96 Mechanical Ventilator 35 04/28/21 04:00 38.2 97 18 139/77 (97) 95 Mechanical Ventilator 35.00 04/28/21 03:40 38.2 04/28/21 03:00 38.1 97 9 128/84 (99) 94 Mechanical Ventilator 35.00 04/28/21 02:52 105 18 94 30 04/28/21 02:00 38.2 85 19 108/74 (85) 95 Mechanical Ventilator 35.00 04/28/21 01:00 100 04/28/21 01:00 38.2 100 17 133/78 (96) 93 Mechanical Ventilator 35.00 04/28/21 00:57 Mechanical Ventilator 35.00 04/28/21 00:52 Mechanical Ventilator 30.00 04/28/21 00:35 Mechanical Ventilator 25.00 04/28/21 00:07 Mechanical Ventilator 30.00 04/28/21 00:00 98 Mechanical Ventilator 30 04/28/21 00:00 38.2 82 14 120/74 (89) 90 Mechanical Ventilator 35.00 04/27/21 23:43 77 18 111/71 04/27/21 23:00 38.1 77 18 111/71 (84) 94 Mechanical Ventilator 35.00 04/27/21 22:31 73 18 96 30 04/27/21 22:00 38.2 82 21 108/72 (84) 97 Mechanical Ventilator 35.00 04/27/21 21:00 38.1 73 17 97/73 (81) 98 Mechanical Ventilator 35.00 04/27/21 20:00 38.2 71 14 91/67 (75) 97 Mechanical Ventilator 35.00 04/27/21 20:00 98 Mechanical Ventilator 35 04/27/21 19:02 83 18 98 30 04/27/21 19:00 38.1 73 25 90/65 (73) 98 Mechanical Ventilator 35.00 04/27/21 19:00 73 04/27/21 18:00 81 18 98/75 (83) 98 Mechanical Ventilator 35.00 04/27/21 17:00 69 18 95/67 (76) 99 Mechanical Ventilator 35.00 04/27/21 16:00 87 17 83/61 (68) 99 Mechanical Ventilator 35.00 04/27/21 16:00 37.7 04/27/21 16:00 98 Mechanical Ventilator 35 04/27/21 15:00 64 17 81/58 (66) 93 Mechanical Ventilator 35.00 04/27/21 14:39 78 18 93 35 04/27/21 14:00 103 22 126/123 (124) 100 Mechanical Ventilator 35.00 04/27/21 13:00 104 92 155/81 (105) 92 Mechanical Ventilator 35.00 04/27/21 13:00 82 04/27/21 12:00 97 Mechanical Ventilator 35 04/27/21 12:00 72 25 118/70 (86) 97 Mechanical Ventilator 35.00 04/27/21 12:00 37.6 04/27/21 11:00 56 17 97/62 (74) 97 Mechanical Ventilator 35.00 04/27/21 10:27 56 18 98 35 04/27/21 10:00 70 66 76/49 (58) 97 Mechanical Ventilator 35.00 04/27/21 09:00 65 66 76/49 (58) 97 Mechanical Ventilator 35.00 I & O 04/28/21 07:00 Intake Total 2190 ml Output Total 2775 ml Balance -585 ml Height & Weight Height: '" Weight: lbs. oz. kg; 21.43 BMI Method: General Appearance: WD/WN, Chronically ill, Other (Sedated and intubated) HEENT: PERRL/EOMI, Other (pupils 5mm bilat and brisk) Neck: Non Tender, Supple Respiratory: No Accessory Muscle Use, No Respiratory Distress, Rhonci, Wheezing Cardiovascular: No Edema, Normal Peripheral Pulses, Irregularly Irregular, Other (afib per monitor) Capillary Refill: Less Than 3 Seconds Peripheral Pulses: 1+ Dorsalis Pedis (R), 1+ Left Dors-Pedis (L) (see free text), 1+ Radial Pulses (L) Gastrointestinal: normal bowel sounds, soft; No distended Extremity: Normal Capillary Refill, No Pedal Edema Neurologic/Psychiatric: Other (sedated) Skin: Normal Color, Warm/Dry, Other (No breakdown on sacrum/coccyx per MINING SPECULATOR report) Lymphatic: No Adenopathy Results Lab Laboratory Tests 04/27/21 03:02 04/28/21 03:40 Assessment/Plan Assessment/Plan Acute hypoxic respiratory failure/ARDS -remains vent dependent -continue ventilatory management -TV 600. FIO2 35%. PEEP 5. RR 18 - SBT today -family in agreement with trach and PEG if need be, consult surgery today for trach and PEG COVID-19 PNA -04-26 Single view the chest demonstrates unchanged bilateral pulmonary infiltrates -04-23-21 CT 1. Evolution of previously seen COVID-19 pneumonia which is now comprised mostly of peripheral consolidation which remains moderate in severity. - New moderate bilateral pleural effusions and diffuse body wall edema. -decadron dc'd 04-26 Leukocytosis/fevers -wbc 12.1 today -temp to 38.2 overnight, tylenol given -meropenen and anidulafungin added 04-27 -PICC cx no growth thus far Shock -resolved, pressors off since 04-19 Hypoalbuminemia -albumin 2.1 -continue to monitor Anemia -hgb 13.5 today, stable -continue to monitor Elevated AST/ALT -mildly elevated -continue to monitor Hypercoagulable state associated with COVID-19 -d dimer on 04-15, 4.31 -eliquis Atrial fibrillation -eliquis GI ppx -protonix L arm triple lumen PICC: 04/14 Lopez: 04/13 OGT: TF's R radial art line: 04/13, please discontinue today Consult surgery for trach and PEG LOLY CLAY MD 04/28/21 1637: Assessment/Plan Assessment/Plan [place] [address] [address] Progress Note - Med Stdnt CC Patient Name: Erik Cloud V Unit Number: [id number] Date of : 03/16/1955 Patient Status: Admitted Inpatient Attending Doctor: Ozzie Izaguirre MD BISHOP FRANCES MED STUDENT 04/28/21 1032: Subjective Subjective Date Seen by a Provider: Apr 28, 2021 Time Seen by a Provider: 07:35 Subjective/Events-last exam Patient alert and oriented x 4. Denies chest pain, SOB, fluttering, palpitations, dizziness, nausea, sweating, and headache. Reports feeling "fine" and has no complaints currently. Plan for possible cardiac cath tomorrow. Monitor shows NSR. Review of Systems General: No Chills, No Night Sweats HEENT: No Head Aches, No Visual Changes Pulmonary: No Dyspnea, No Cough Cardiovascular: No: Chest Pain, Palpitations, Orthopnea, Edema, Lt Headedness Gastrointestinal: No: Nausea, Vomiting, Abdominal Pain, Diarrhea, Constipation Genitourinary: No Dysuria, No Frequency, No Hematuria Musculoskeletal: No: neck pain, back pain Neurological: No: Weakness, Numbness, Change in speech, Confusion Sepsis Event - Inpatient/Obs Sepsis Event Evaluation Height, Weight, BMI Height: 6'1.00" Weight: 286lbs. 6.0oz. 131.499539qj; 36.79 BMI Method:Stated Focused Exam Focused Exam Exam-Pulmonary/CC Exam Exam Patient acknowledged, consented, and participated in this virtual visit which was conducted using real time audio/video Vital Signs Date Time Temp Pulse Resp B/P (MAP) Pulse Ox O2 Delivery O2 Flow Rate FiO2 04/28/21 08:34 36.0 04/28/21 07:56 98 Nasal Cannula 2.00 04/28/21 07:00 74 04/28/21 06:14 75 32 123/73 97 Nasal Cannula 2.00 04/28/21 05:00 76 10 186/126 99 Nasal Cannula 2.00 04/28/21 04:15 36.2 04/28/21 04:00 75 12 178/83 98 Nasal Cannula 2.00 04/28/21 04:00 98 Nasal Cannula 2.00 04/28/21 03:22 79 10 156/89 98 Nasal Cannula 2.00 04/28/21 02:45 80 16 170/83 98 Nasal Cannula 2.00 04/28/21 02:30 82 30 165/78 98 Nasal Cannula 2.00 04/28/21 02:15 85 9 162/86 98 Nasal Cannula 2.00 04/28/21 02:10 35.8 86 14 148/76 99 Nasal Cannula 2.00 04/28/21 02:00 Nasal Cannula 2.00 04/28/21 01:56 90 04/27/21 23:19 95 Nasal Cannula 2.00 04/27/21 23:19 35.8 108 18 144/89 (107) 95 Room Air I & O 04/28/21 07:00 Intake Total 1000 ml Output Total 1050 ml Balance -50 ml Height & Weight Height: 6'1.00" Weight: 286lbs. 6.0oz. 131.671122wk; 36.79 BMI Method:Stated General Appearance: No Apparent Distress, WD/WN, Obese HEENT: PERRL/EOMI, Moist Mucous Membranes Neck: Full Range of Motion, Normal Inspection, Non Tender, Supple; No JVD Respiratory: Lungs Clear, Normal Breath Sounds, No Accessory Muscle Use, No Respiratory Distress; No Crackles, No Rhonci, No Stridor, No Wheezing Cardiovascular: Regular Rate, Rhythm, No Edema, No Murmur, Normal Peripheral Pulses Capillary Refill: Less Than 3 Seconds Peripheral Pulses: 2+ Dorsalis Pedis (R), 2+ Left Dors-Pedis (L), 2+ Radial Pulses (R), 2+ Radial Pulses (L) Gastrointestinal: normal bowel sounds, non tender, soft Extremity: Normal Capillary Refill, Normal Inspection, Non Tender, No Calf Tenderness, No Pedal Edema Neurologic/Psychiatric: Alert, Oriented x3, No Motor/Sensory Deficits, Normal Mood/Affect Skin: Normal Color, Warm/Dry Lymphatic: No Adenopathy Results Lab Laboratory Tests 04/27/21 23:23 04/28/21 03:05 Assessment/Plan Assessment/Plan Assessment/Plan V-Tach -converted to SR after defib x 1 -continue to monitor on tele -cards following NSTEMI -elevated troponin -cardiology following -toprolol 50mg po BID -plavix and ASA -echo -plan for cath tomorrow per cards note Hyperglycemia -sugar over 600 on admission -initial co2 18 and gap 15 now 21 and 12 -no beta hydroxybutyrate drawn -see plan below Hyperkalemia -k 5.2 -continue to monitor Anticoagulated -lovenox 120mg BID Acute on chronic renal failure -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 -creatinine trending down to 1.86 -avoid nephrotoxins -IVF's Hypertriglyceridemia -elevated at 275 -continue to monitor Diabetes mellitus insulin dependent -insulin gtt dc'd -novolog achs accuchecks -levemir -hgb a1c pending GI ppx -protonix Hypertension MICHAEL COPD H/O tobaccoism Problem List Diagnosis/Problems Copy To: Copy Verification and Attestation Supervisory-Addendum Brief LOLY CLAY MD 04/28/21 1630: Subjective Subjective Sepsis Event - Inpatient/Obs Sepsis Event Focused Exam Focused Exam Exam-Pulmonary/CC Exam Assessment/Plan Assessment/Plan Assessment/Plan [place] [address] [address] Progress Note - Med Stdnt PULM Patient Name: Carolina Smith Unit Number: [id number] Date of : 05/04/1952 Patient Status: Admitted Inpatient Attending Doctor: Adele Kirkpatrick MD BISHOP FRANCES MED STUDENT 04/28/21 0827: Subjective Date Seen by a Provider: Apr 28, 2021 Time Seen by a Provider: 06:45 Subjective/Events-last exam Patient awake and alert in room. States is having back pain and can't get comfortable. Becomes anxious and tearful stating the nurses are displeased with taking care of her. Vitals stable per monitor. Remains on cardizem drip at 20mg/hr. Review of Systems General: No Chills, No Night Sweats HEENT: No Head Aches, No Visual Changes Pulmonary: No Dyspnea, No Cough Cardiovascular: No: Chest Pain, Palpitations Gastrointestinal: Nausea; No: Vomiting, Abdominal Pain Genitourinary: No Dysuria, No Frequency; Other (lopez catheter) Musculoskeletal: back pain; No: neck pain Neurological: No: Weakness, Numbness Sepsis Event Evaluation Height, Weight, BMI Height: 5'5.00" Weight: 276lbs. oz. 125.450403wc; 43.29 BMI Method:Stated Focused Exam Lactate Level 04/25/21 21:45: Lactic Acid Level 1.54 Exam Exam Patient acknowledged, consented, and participated in this virtual visit which was conducted using real time audio/video Vital Signs Date Time Temp Pulse Resp B/P (MAP) Pulse Ox O2 Delivery O2 Flow Rate FiO2 04/28/21 06:00 130 21 131/91 98 Nasal Cannula 2.00 04/28/21 05:48 99 04/28/21 05:00 112 33 144/98 99 Nasal Cannula 2.00 04/28/21 04:15 98 Nasal Cannula 2.00 04/28/21 04:00 129 35 139/98 100 Nasal Cannula 2.00 04/28/21 03:00 87 13 103/89 91 Nasal Cannula 2.00 04/28/21 02:51 36.5 Nasal Cannula 2.00 04/28/21 02:15 111 15 137/81 91 Nasal Cannula 2.00 04/28/21 02:00 92 04/28/21 01:00 108 04/28/21 01:00 108 10 123/70 95 Nasal Cannula 2.00 04/28/21 00:00 126 117/86 99 Nasal Cannula 2.00 04/27/21 23:49 36.7 Nasal Cannula 2.00 04/27/21 23:48 99 Nasal Cannula 2.00 04/27/21 23:00 126 18 128/91 99 Nasal Cannula 2.00 04/27/21 22:10 118 04/27/21 22:00 125 29 144/79 98 Nasal Cannula 2.00 04/27/21 21:00 125 32 126/80 97 Nasal Cannula 2.00 04/27/21 20:32 126 04/27/21 20:00 97 Nasal Cannula 2.00 04/27/21 20:00 128 132/90 97 Nasal Cannula 2.00 04/27/21 19:15 128 13 124/78 97 Nasal Cannula 2.00 04/27/21 19:00 128 04/27/21 19:00 36.6 Nasal Cannula 2.00 04/27/21 18:00 125 6 132/119 95 Nasal Cannula 2.00 04/27/21 17:00 133 36 173/103 98 Nasal Cannula 2.00 04/27/21 16:30 35.9 04/27/21 16:00 130 26 100/84 97 Nasal Cannula 2.00 04/27/21 16:00 98 Nasal Cannula 2.00 04/27/21 15:00 130 31 116/81 98 Nasal Cannula 2.00 04/27/21 14:00 128 5 125/83 100 Nasal Cannula 2.00 04/27/21 14:00 132 04/27/21 13:36 128 04/27/21 13:00 131 13 157/87 100 Nasal Cannula 2.00 04/27/21 12:30 36.3 04/27/21 12:00 98 Nasal Cannula 2.00 04/27/21 12:00 133 13 120/63 97 Nasal Cannula 2.00 04/27/21 11:00 133 45 129/70 96 Nasal Cannula 2.00 04/27/21 10:10 125 130/85 95 Nasal Cannula 2.00 04/27/21 10:00 130 04/27/21 09:00 128 118/74 96 Nasal Cannula 2.00 I & O 04/28/21 07:00 Intake Total 2505 ml Output Total 2475 ml Balance 30 ml Height & Weight Height: 5'5.00" Weight: 276lbs. oz. 125.833666tw; 43.29 BMI Method:Stated General Appearance: No Apparent Distress, Chronically ill, Obese HEENT: PERRL/EOMI, Moist Mucous Membranes; No Scleral Icterus (L), No Scleral Icterus (R) Neck: Non Tender, Supple, Other ([facility] CVC dressing c/d/i) Respiratory: Lungs Clear, Normal Breath Sounds, No Accessory Muscle Use, No Respiratory Distress Cardiovascular: No Murmur, Irregularly Irregular, Tachycardia Capillary Refill: Less Than 3 Seconds Peripheral Pulses: 2+ Dorsalis Pedis (R), 2+ Left Dors-Pedis (L), 2+ Radial Pu lses (R), 2+ Radial Pulses (L) Gastrointestinal: normal bowel sounds, non tender, soft; No distended, No guarding, No rebound, No tenderness Extremity: Normal Capillary Refill, Non Tender, No Calf Tenderness, No Pedal Edema Neurologic/Psychiatric: Alert, Oriented x3, Other (tearful) Skin: Normal Color, Warm/Dry Lymphatic: No Adenopathy Results Lab Laboratory Tests 04/27/21 02:50 04/28/21 02:35 Assessment/Plan Assessment/Plan Septic shock due to UTI -prelim blood culture staph epidermidis and hominis -prelim urine culture E coli and proteus -Levo off since 04-26. -cefepime and vancomycin dc'd today -meropenem added today -procalcitonin 0.59 04-26 -covid pcr negative S/P SEVERO/Cardioversion today -currently in NSR -cardizem gtt dc'd HAYDE -improved -creatinine 0.69 now -continue to monitor A-fib with RVR -resolved, s/p cardioversion 04-28 -anticoagulated with lovenox 120mg BID -amiodarone -digoxin NSTEMI -troponin I 3rd set up to 0.077 -continue to monitor Seizure disorder -continue keppra HTN H/O GIB H/O cardiac arrest 11/2019 H/O polysubstance abuse -uds positive for oxycodone and benzo's Obesity GI ppx -protonix RIJ CVC: please discontinue today Lopez: ? discontinue today LOLY CLAY MD 04/28/21 1614: Assessment/Plan Assessment/Plan agree with medical students note, I rounded via camera, physical based on RN and medical student's report Agree with treatment plan Critical Care: Critically Ill Patient Time spent with patient (mins): 25 Supervisory-Addendum Brief Verification & Attestation Participated in pt care: history, physical Personally performed: history Care discussed with: Medical Student, NAVIGATING OFFICER Procedures: n/a Results interpretation: Verified all documentation I rounded with RN and medical student thru video, Agree with treatment plan, Physical findings are those reported to me by RN and medical student BISHOP FRANCES MED STUDENT Apr 28, 2021 08:27 LOLY CLAY MD Apr 28, 2021 16:14 Addendum: LOLY CLAY MD on 04/28/21 @ 16:15 Critical Care: Critically Ill Patient Problem List Diagnosis/Problems Copy To: Copy Verification and Attestation Supervisory-Addendum Brief Verification & Attestation Participated in pt care: history, physical Personally performed: exam, history Care discussed with: Medical Student Procedures: n/a Results interpretation: Verified all documentation [place] [address] [place] [address] Progress Note - Med Stdnt PULM Patient Name: Carolina Smith Unit Number: [id number] Date of : 05/04/1952 Patient Status: Admitted Inpatient Attending Doctor: Adele Kirkpatrick MD BISHOP FRANCES MED STUDENT 04/28/21 0827: Subjective Date Seen by a Provider: Apr 28, 2021 Time Seen by a Provider: 06:45 Subjective/Events-last exam Patient awake and alert in room. States is having back pain and can't get comfortable. Becomes anxious and tearful stating the nurses are displeased with taking care of her. Vitals stable per monitor. Remains on cardizem drip at 20mg/hr. Review of Systems General: No Chills, No Night Sweats HEENT: No Head Aches, No Visual Changes Pulmonary: No Dyspnea, No Cough Cardiovascular: No: Chest Pain, Palpitations Gastrointestinal: Nausea; No: Vomiting, Abdominal Pain Genitourinary: No Dysuria, No Frequency; Other (lopez catheter) Musculoskeletal: back pain; No: neck pain Neurological: No: Weakness, Numbness Sepsis Event Evaluation Height, Weight, BMI Height: 5'5.00" Weight: 276lbs. oz. 125.335051in; 43.29 BMI Method:Stated Focused Exam Lactate Level 04/25/21 21:45: Lactic Acid Level 1.54 Exam Exam Patient acknowledged, consented, and participated in this virtual visit which was conducted using real time audio/video Vital Signs Date Time Temp Pulse Resp B/P (MAP) Pulse Ox O2 Delivery O2 Flow Rate FiO2 04/28/21 06:00 130 21 131/91 98 Nasal Cannula 2.00 04/28/21 05:48 99 04/28/21 05:00 112 33 144/98 99 Nasal Cannula 2.00 04/28/21 04:15 98 Nasal Cannula 2.00 04/28/21 04:00 129 35 139/98 100 Nasal Cannula 2.00 04/28/21 03:00 87 13 103/89 91 Nasal Cannula 2.00 04/28/21 02:51 36.5 Nasal Cannula 2.00 04/28/21 02:15 111 15 137/81 91 Nasal Cannula 2.00 04/28/21 02:00 92 04/28/21 01:00 108 04/28/21 01:00 108 10 123/70 95 Nasal Cannula 2.00 04/28/21 00:00 126 117/86 99 Nasal Cannula 2.00 04/27/21 23:49 36.7 Nasal Cannula 2.00 04/27/21 23:48 99 Nasal Cannula 2.00 04/27/21 23:00 126 18 128/91 99 Nasal Cannula 2.00 04/27/21 22:10 118 04/27/21 22:00 125 29 144/79 98 Nasal Cannula 2.00 04/27/21 21:00 125 32 126/80 97 Nasal Cannula 2.00 04/27/21 20:32 126 04/27/21 20:00 97 Nasal Cannula 2.00 04/27/21 20:00 128 132/90 97 Nasal Cannula 2.00 04/27/21 19:15 128 13 124/78 97 Nasal Cannula 2.00 04/27/21 19:00 128 04/27/21 19:00 36.6 Nasal Cannula 2.00 04/27/21 18:00 125 6 132/119 95 Nasal Cannula 2.00 04/27/21 17:00 133 36 173/103 98 Nasal Cannula 2.00 04/27/21 16:30 35.9 04/27/21 16:00 130 26 100/84 97 Nasal Cannula 2.00 04/27/21 16:00 98 Nasal Cannula 2.00 04/27/21 15:00 130 31 116/81 98 Nasal Cannula 2.00 04/27/21 14:00 128 5 125/83 100 Nasal Cannula 2.00 04/27/21 14:00 132 04/27/21 13:36 128 04/27/21 13:00 131 13 157/87 100 Nasal Cannula 2.00 04/27/21 12:30 36.3 04/27/21 12:00 98 Nasal Cannula 2.00 04/27/21 12:00 133 13 120/63 97 Nasal Cannula 2.00 04/27/21 11:00 133 45 129/70 96 Nasal Cannula 2.00 04/27/21 10:10 125 130/85 95 Nasal Cannula 2.00 04/27/21 10:00 130 04/27/21 09:00 128 118/74 96 Nasal Cannula 2.00 I & O 04/28/21 07:00 Intake Total 2505 ml Output Total 2475 ml Balance 30 ml Height & Weight Height: 5'5.00" Weight: 276lbs. oz. 125.340781sf; 43.29 BMI Method:Stated General Appearance: No Apparent Distress, Chronically ill, Obese HEENT: PERRL/EOMI, Moist Mucous Membranes; No Scleral Icterus (L), No Scleral Icterus (R) Neck: Non Tender, Supple, Other (RIJ CVC dressing c/d/i) Respiratory: Lungs Clear, Normal Breath Sounds, No Accessory Muscle Use, No Respiratory Distress Cardiovascular: No Murmur, Irregularly Irregular, Tachycardia Capillary Refill: Less Than 3 Seconds Peripheral Pulses: 2+ Dorsalis Pedis (R), 2+ Left Dors-Pedis (L), 2+ Radial Pulses (R), 2+ Radial Pulses (L) Gastrointestinal: normal bowel sounds, non tender, soft; No distended, No guarding, No rebound, No tenderness Extremity: Normal Capillary Refill, Non Tender, No Calf Tenderness, No Pedal Edema Neurologic/Psychiatric: Alert, Oriented x3, Other (tearful) Skin: Normal Color, Warm/Dry Lymphatic: No Adenopathy Results Lab Laboratory Tests 04/27/21 02:50 04/28/21 02:35 Assessment/Plan Assessment/Plan Septic shock due to UTI -prelim blood culture staph epidermidis and hominis -prelim urine culture E coli and proteus -Levo off since 04-26. -cefepime and vancomycin dc'd today -meropenem added today -procalcitonin 0.59 04-26 -covid pcr negative S/P SEVERO/Cardioversion today -currently in NSR -cardizem gtt dc'd HAYDE -improved -creatinine 0.69 now -continue to monitor A-fib with RVR -resolved, s/p cardioversion 04-28 -anticoagulated with lovenox 120mg BID -amiodarone -digoxin NSTEMI -troponin I 3rd set up to 0.077 -continue to monitor Seizure disorder -continue keppra HTN H/O GIB H/O cardiac arrest 11/2019 H/O polysubstance abuse -uds positive for oxycodone and benzo's Obesity GI ppx -protonix RIJ CVC: please discontinue today Lopez: ? discontinue today LOLY CLAY MD 04/28/21 1614: Assessment/Plan Assessment/Plan agree with medical students note, I rounded via camera, physical based on RN and medical student's report Agree with treatment plan Critical Care: Critically Ill Patient Time spent with patient (mins): 25 Supervisory-Addendum Brief Verification & Attestation Participated in pt care: history, physical Personally performed: history Care discussed with: Medical Student, NAVIGATING OFFICER Procedures: n/a Results interpretation: Verified all documentation I rounded with RN and medical student thru video, Agree with treatment plan, Physical findings are those reported to me by RN and medical student BISHOP FRANCES Apr 28, 2021 08:27 LOLY CLAY MD Apr 28, 2021 16:14 Addendum: LOLY CLAY MD on 04/28/21 @ 16:15 BISHOP FRANCES Apr 28, 2021 10:32 LOLY CLAY MD Apr 28, 2021 16:30 Critical Care: Ventilator Management Time spent with patient (mins): 30 Supervisory-Addendum Brief Verification & Attestation Participated in pt care: history, physical Personally performed: supervision of care Care discussed with: Medical Student Procedures: n/a Results interpretation: Verified all documentation [place] [facility] [address] [address] Progress Note - Med Stdnt CC Patient Name: Erik Cloud V Unit Number: [id number] Date of : 03/16/1955 Patient Status: Admitted Inpatient Attending Doctor: Ozzie Izaguirre MD BISHOP FRANCES STUDENT 04/28/21 1032: Subjective Subjective Date Seen by a Provider: Apr 28, 2021 Time Seen by a Provider: 07:35 Subjective/Events-last exam Patient alert and oriented x 4. Denies chest pain, SOB, fluttering, palpitations, dizziness, nausea, sweating, and headache. Reports feeling "fine" and has no complaints currently. Plan for possible cardiac cath tomorrow. Monitor shows NSR. Review of Systems General: No Chills, No Night Sweats HEENT: No Head Aches, No Visual Changes Pulmonary: No Dyspnea, No Cough Cardiovascular: No: Chest Pain, Palpitations, Orthopnea, Edema, Lt Headedness Gastrointestinal: No: Nausea, Vomiting, Abdominal Pain, Diarrhea, Constipation Genitourinary: No Dysuria, No Frequency, No Hematuria Musculoskeletal: No: neck pain, back pain Neurological: No: Weakness, Numbness, Change in speech, Confusion Sepsis Event - Inpatient/Obs Sepsis Event Evaluation Height, Weight, BMI Height: 6'1.00" Weight: 286lbs. 6.0oz. 131.564393sp; 36.79 BMI Method:Stated Focused Exam Focused Exam Exam-Pulmonary/CC Exam Exam Patient acknowledged, consented, and participated in this virtual visit which was conducted using real time audio/video Vital Signs Date Time Temp Pulse Resp B/P (MAP) Pulse Ox O2 Delivery O2 Flow Rate FiO2 04/28/21 08:34 36.0 04/28/21 07:56 98 Nasal Cannula 2.00 04/28/21 07:00 74 04/28/21 06:14 75 32 123/73 97 Nasal Cannula 2.00 04/28/21 05:00 76 10 186/126 99 Nasal Cannula 2.00 04/28/21 04:15 36.2 04/28/21 04:00 75 12 178/83 98 Nasal Cannula 2.00 04/28/21 04:00 98 Nasal Cannula 2.00 04/28/21 03:22 79 10 156/89 98 Nasal Cannula 2.00 04/28/21 02:45 80 16 170/83 98 Nasal Cannula 2.00 04/28/21 02:30 82 30 165/78 98 Nasal Cannula 2.00 04/28/21 02:15 85 9 162/86 98 Nasal Cannula 2.00 04/28/21 02:10 35.8 86 14 148/76 99 Nasal Cannula 2.00 04/28/21 02:00 Nasal Cannula 2.00 04/28/21 01:56 90 04/27/21 23:19 95 Nasal Cannula 2.00 04/27/21 23:19 35.8 108 18 144/89 (107) 95 Room Air I & O 04/28/21 07:00 Intake Total 1000 ml Output Total 1050 ml Balance -50 ml Height & Weight Height: 6'1.00" Weight: 286lbs. 6.0oz. 131.817672as; 36.79 BMI Method:Stated General Appearance: No Apparent Distress, WD/WN, Obese HEENT: PERRL/EOMI, Moist Mucous Membranes Neck: Full Range of Motion, Normal Inspection, Non Tender, Supple; No JVD Respiratory: Lungs Clear, Normal Breath Sounds, No Accessory Muscle Use, No Respiratory Distress; No Crackles, No Rhonci, No Stridor, No Wheezing Cardiovascular: Regular Rate, Rhythm, No Edema, No Murmur, Normal Peripheral Pulses Capillary Refill: Less Than 3 Seconds Peripheral Pulses: 2+ Dorsalis Pedis (R), 2+ Left Dors-Pedis (L), 2+ Radial Pulses (R), 2+ Radial Pulses (L) Gastrointestinal: normal bowel sounds, non tender, soft Extremity: Normal Capillary Refill, Normal Inspection, Non Tender, No Calf Tenderness, No Pedal Edema Neurologic/Psychiatric: Alert, Oriented x3, No Motor/Sensory Deficits, Normal Mood/Affect Skin: Normal Color, Warm/Dry Lymphatic: No Adenopathy Results Lab Laboratory Tests 04/27/21 23:23 04/28/21 03:05 Assessment/Plan Assessment/Plan Assessment/Plan V-Tach -converted to SR after defib x 1 -continue to monitor on tele -cards following NSTEMI -elevated troponin -cardiology following -toprolol 50mg po BID -plavix and ASA -echo -plan for cath tomorrow per cards note Hyperglycemia -sugar over 600 on admission -initial co2 18 and gap 15 now 21 and 12 -no beta hydroxybutyrate drawn -see plan below Hyperkalemia -k 5.2 -continue to monitor Anticoagulated -lovenox 120mg BID Acute on chronic renal failure -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 -creatinine trending down to 1.86 -avoid nephrotoxins -IVF's Hypertriglyceridemia -elevated at 275 -continue to monitor Diabetes mellitus insulin dependent -insulin gtt dc'd -novolog achs accuchecks -levemir -hgb a1c pending GI ppx -protonix Hypertension MICHAEL COPD H/O tobaccoism Problem List Diagnosis/Problems Copy To: Copy Verification and Attestation Supervisory-Addendum Brief LOLY CLAY MD 04/28/21 1630: Subjective Subjective Sepsis Event - Inpatient/Obs Sepsis Event Focused Exam Focused Exam Exam-Pulmonary/CC Exam Assessment/Plan Assessment/Plan Assessment/Plan [facility] [address] [place] [address] Progress Note - Med Stdnt PULM Patient Name: Carolina Smith Unit Number: [id number] Date of : 05/04/1952 Patient Status: Admitted Inpatient Attending Doctor: Adele Kirkpatrick MD BISHOP FRANCES MED STUDENT 04/28/21 0827: Subjective Date Seen by a Provider: Apr 28, 2021 Time Seen by a Provider: 06:45 Subjective/Events-last exam Patient awake and alert in room. States is having back pain and can't get comfortable. Becomes anxious and tearful stating the nurses are displeased with taking care of her. Vitals stable per monitor. Remains on cardizem drip at 20mg/hr. Review of Systems General: No Chills, No Night Sweats HEENT: No Head Aches, No Visual Changes Pulmonary: No Dyspnea, No Cough Cardiovascular: No: Chest Pain, Palpitations Gastrointestinal: Nausea; No: Vomiting, Abdominal Pain Genitourinary: No Dysuria, No Frequency; Other (lopez catheter) Musculoskeletal: back pain; No: neck pain Neurological: No: Weakness, Numbness Sepsis Event Evaluation Height, Weight, BMI Height: 5'5.00" Weight: 276lbs. oz. 125.100965pf; 43.29 BMI Method:Stated Focused Exam Lactate Level 04/25/21 21:45: Lactic Acid Level 1.54 Exam Exam Patient acknowledged, consented, and participated in this virtual visit which was conducted using real time audio/video Vital Signs Date Time Temp Pulse Resp B/P (MAP) Pulse Ox O2 Delivery O2 Flow Rate FiO2 04/28/21 06:00 130 21 131/91 98 Nasal Cannula 2.00 04/28/21 05:48 99 04/28/21 05:00 112 33 144/98 99 Nasal Cannula 2.00 04/28/21 04:15 98 Nasal Cannula 2.00 04/28/21 04:00 129 35 139/98 100 Nasal Cannula 2.00 04/28/21 03:00 87 13 103/89 91 Nasal Cannula 2.00 04/28/21 02:51 36.5 Nasal Cannula 2.00 04/28/21 02:15 111 15 137/81 91 Nasal Cannula 2.00 04/28/21 02:00 92 04/28/21 01:00 108 04/28/21 01:00 108 10 123/70 95 Nasal Cannula 2.00 04/28/21 00:00 126 117/86 99 Nasal Cannula 2.00 04/27/21 23:49 36.7 Nasal Cannula 2.00 04/27/21 23:48 99 Nasal Cannula 2.00 04/27/21 23:00 126 18 128/91 99 Nasal Cannula 2.00 04/27/21 22:10 118 04/27/21 22:00 125 29 144/79 98 Nasal Cannula 2.00 04/27/21 21:00 125 32 126/80 97 Nasal Cannula 2.00 04/27/21 20:32 126 04/27/21 20:00 97 Nasal Cannula 2.00 04/27/21 20:00 128 132/90 97 Nasal Cannula 2.00 04/27/21 19:15 128 13 124/78 97 Nasal Cannula 2.00 04/27/21 19:00 128 04/27/21 19:00 36.6 Nasal Cannula 2.00 04/27/21 18:00 125 6 132/119 95 Nasal Cannula 2.00 04/27/21 17:00 133 36 173/103 98 Nasal Cannula 2.00 04/27/21 16:30 35.9 04/27/21 16:00 130 26 100/84 97 Nasal Cannula 2.00 04/27/21 16:00 98 Nasal Cannula 2.00 04/27/21 15:00 130 31 116/81 98 Nasal Cannula 2.00 04/27/21 14:00 128 5 125/83 100 Nasal Cannula 2.00 04/27/21 14:00 132 04/27/21 13:36 128 04/27/21 13:00 131 13 157/87 100 Nasal Cannula 2.00 04/27/21 12:30 36.3 04/27/21 12:00 98 Nasal Cannula 2.00 04/27/21 12:00 133 13 120/63 97 Nasal Cannula 2.00 04/27/21 11:00 133 45 129/70 96 Nasal Cannula 2.00 04/27/21 10:10 125 130/85 95 Nasal Cannula 2.00 04/27/21 10:00 130 04/27/21 09:00 128 118/74 96 Nasal Cannula 2.00 I & O 04/28/21 07:00 Intake Total 2505 ml Output Total 2475 ml Balance 30 ml Height & Weight Height: 5'5.00" Weight: 276lbs. oz. 125.400924au; 43.29 BMI Method:Stated General Appearance: No Apparent Distress, Chronically ill, Obese HEENT: PERRL/EOMI, Moist Mucous Membranes; No Scleral Icterus (L), No Scleral Icterus (R) Neck: Non Tender, Supple, Other (RIJ CVC dressing c/d/i) Respiratory: Lungs Clear, Normal Breath Sounds, No Accessory Muscle Use, No Respiratory Distress Cardiovascular: No Murmur, Irregularly Irregular, Tachycardia Capillary Refill: Less Than 3 Seconds Peripheral Pulses: 2+ Dorsalis Pedis (R), 2+ Left Dors-Pedis (L), 2+ Radial Pulses (R), 2+ Radial Pulses (L) Gastrointestinal: normal bowel sounds, non tender, soft; No distended, No guarding, No rebound, No tenderness Extremity: Normal Capillary Refill, Non Tender, No Calf Tenderness, No Pedal Edema Neurologic/Psychiatric: Alert, Oriented x3, Other (tearful) Skin: Normal Color, Warm/Dry Lymphatic: No Adenopathy Results Lab Laboratory Tests 04/27/21 02:50 04/28/21 02:35 Assessment/Plan Assessment/Plan Septic shock due to UTI -prelim blood culture staph epidermidis and hominis -prelim urine culture E coli and proteus -Levo off since 04-26. -cefepime and vancomycin dc'd today -meropenem added today -procalcitonin 0.59 04-26 -covid pcr negative S/P SEVERO/Cardioversion today -currently in NSR -cardizem gtt dc'd HAYDE -improved -creatinine 0.69 now -continue to monitor A-fib with RVR -resolved, s/p cardioversion 04-28 -anticoagulated with lovenox 120mg BID -amiodarone -digoxin NSTEMI -troponin I 3rd set up to 0.077 -continue to monitor Seizure disorder -continue keppra HTN H/O GIB H/O cardiac arrest 11/2019 H/O polysubstance abuse -uds positive for oxycodone and benzo's Obesity GI ppx -protonix RIJ CVC: please discontinue today Lopez: ? discontinue today LOLY CLAY MD 04/28/21 1614: Assessment/Plan Assessment/Plan agree with medical students note, I rounded via camera, physical based on RN and medical student's report Agree with treatment plan Critical Care: Critically Ill Patient Time spent with patient (mins): 25 Supervisory-Addendum Brief Verification & Attestation Participated in pt care: history, physical Personally performed: history Care discussed with: Medical Student, NAVIGATING OFFICER Procedures: n/a Results interpretation: Verified all documentation I rounded with RN and medical student thru video, Agree with treatment plan, Physical findings are those reported to me by RN and medical student BISHOP FRANCES MED ANA CRISTINA Apr 28, 2021 08:27 LOLY CLAY MD Apr 28, 2021 16:14 Addendum: LOLY CLAY MD on 04/28/21 @ 16:15 Critical Care: Critically Ill Patient Problem List Diagnosis/Problems Copy To: Copy Verification and Attestation Supervisory-Addendum Brief Verification & Attestation Participated in pt care: history, physical Personally performed: exam, history Care discussed with: Medical Student Procedures: n/a Results interpretation: Verified all documentation [facility] [address] [address] Progress Note - Med Stdnt PULM Patient Name: Carolina Smith Unit Number: [id number] Date of : 05/04/1952 Patient Status: Admitted Inpatient Attending Doctor: Adele Kirkpatrick MD BISHOP FRANCES STUDENT 04/28/21 0827: Subjective Date Seen by a Provider: Apr 28, 2021 Time Seen by a Provider: 06:45 Subjective/Events-last exam Patient awake and alert in room. States is having back pain and can't get comfortable. Becomes anxious and tearful stating the nurses are displeased with taking care of her. Vitals stable per monitor. Remains on cardizem drip at 20mg/hr. Review of Systems General: No Chills, No Night Sweats HEENT: No Head Aches, No Visual Changes Pulmonary: No Dyspnea, No Cough Cardiovascular: No: Chest Pain, Palpitations Gastrointestinal: Nausea; No: Vomiting, Abdominal Pain Genitourinary: No Dysuria, No Frequency; Other (lopez catheter) Musculoskeletal: back pain; No: neck pain Neurological: No: Weakness, Numbness Sepsis Event Evaluation Height, Weight, BMI Height: 5'5.00" Weight: 276lbs. oz. 125.071988xo; 43.29 BMI Method:Stated Focused Exam Lactate Level 04/25/21 21:45: Lactic Acid Level 1.54 Exam Exam Patient acknowledged, consented, and participated in this virtual visit which was conducted using real time audio/video Vital Signs Date Time Temp Pulse Resp B/P (MAP) Pulse Ox O2 Delivery O2 Flow Rate FiO2 04/28/21 06:00 130 21 131/91 98 Nasal Cannula 2.00 04/28/21 05:48 99 04/28/21 05:00 112 33 144/98 99 Nasal Cannula 2.00 04/28/21 04:15 98 Nasal Cannula 2.00 04/28/21 04:00 129 35 139/98 100 Nasal Cannula 2.00 04/28/21 03:00 87 13 103/89 91 Nasal Cannula 2.00 04/28/21 02:51 36.5 Nasal Cannula 2.00 04/28/21 02:15 111 15 137/81 91 Nasal Cannula 2.00 04/28/21 02:00 92 04/28/21 01:00 108 04/28/21 01:00 108 10 123/70 95 Nasal Cannula 2.00 04/28/21 00:00 126 117/86 99 Nasal Cannula 2.00 04/27/21 23:49 36.7 Nasal Cannula 2.00 04/27/21 23:48 99 Nasal Cannula 2.00 04/27/21 23:00 126 18 128/91 99 Nasal Cannula 2.00 04/27/21 22:10 118 04/27/21 22:00 125 29 144/79 98 Nasal Cannula 2.00 04/27/21 21:00 125 32 126/80 97 Nasal Cannula 2.00 04/27/21 20:32 126 04/27/21 20:00 97 Nasal Cannula 2.00 04/27/21 20:00 128 132/90 97 Nasal Cannula 2.00 04/27/21 19:15 128 13 124/78 97 Nasal Cannula 2.00 04/27/21 19:00 128 04/27/21 19:00 36.6 Nasal Cannula 2.00 04/27/21 18:00 125 6 132/119 95 Nasal Cannula 2.00 04/27/21 17:00 133 36 173/103 98 Nasal Cannula 2.00 04/27/21 16:30 35.9 04/27/21 16:00 130 26 100/84 97 Nasal Cannula 2.00 04/27/21 16:00 98 Nasal Cannula 2.00 04/27/21 15:00 130 31 116/81 98 Nasal Cannula 2.00 04/27/21 14:00 128 5 125/83 100 Nasal Cannula 2.00 04/27/21 14:00 132 04/27/21 13:36 128 04/27/21 13:00 131 13 157/87 100 Nasal Cannula 2.00 04/27/21 12:30 36.3 04/27/21 12:00 98 Nasal Cannula 2.00 04/27/21 12:00 133 13 120/63 97 Nasal Cannula 2.00 04/27/21 11:00 133 45 129/70 96 Nasal Cannula 2.00 04/27/21 10:10 125 130/85 95 Nasal Cannula 2.00 04/27/21 10:00 130 04/27/21 09:00 128 118/74 96 Nasal Cannula 2.00 I & O 04/28/21 07:00 Intake Total 2505 ml Output Total 2475 ml Balance 30 ml Height & Weight Height: 5'5.00" Weight: 276lbs. oz. 125.595442lh; 43.29 BMI Method:Stated General Appearance: No Apparent Distress, Chronically ill, Obese HEENT: PERRL/EOMI, Moist Mucous Membranes; No Scleral Icterus (L), No Scleral Icterus (R) Neck: Non Tender, Supple, Other ([facility] CVC dressing c/d/i) Respiratory: Lungs Clear, Normal Breath Sounds, No Accessory Muscle Use, No Respiratory Distress Cardiovascular: No Murmur, Irregularly Irregular, Tachycardia Capillary Refill: Less Than 3 Seconds Peripheral Pulses: 2+ Dorsalis Pedis (R), 2+ Left Dors-Pedis (L), 2+ Radial Pulses (R), 2+ Radial Pulses (L) Gastrointestinal: normal bowel sounds, non tender, soft; No distended, No guarding, No rebound, No tenderness Extremity: Normal Capillary Refill, Non Tender, No Calf Tenderness, No Pedal Edema Neurologic/Psychiatric: Alert, Oriented x3, Other (tearful) Skin: Normal Color, Warm/Dry Lymphatic: No Adenopathy Results Lab Laboratory Tests 04/27/21 02:50 04/28/21 02:35 Assessment/Plan Assessment/Plan Septic shock due to UTI -prelim blood culture staph epidermidis and hominis -prelim urine culture E coli and proteus -Levo off since 04-26. -cefepime and vancomycin dc'd today -meropenem added today -procalcitonin 0.59 04-26 -covid pcr negative S/P SEVERO/Cardioversion today -currently in NSR -cardizem gtt dc'd HAYDE -improved -creatinine 0.69 now -continue to monitor A-fib with RVR -resolved, s/p cardioversion 04-28 -anticoagulated with lovenox 120mg BID -amiodarone -digoxin NSTEMI -troponin I 3rd set up to 0.077 -continue to monitor Seizure disorder -continue keppra HTN H/O GIB H/O cardiac arrest 11/2019 H/O polysubstance abuse -uds positive for oxycodone and benzo's Obesity GI ppx -protonix RIJ CVC: please discontinue today Lopez: ? discontinue today LOLY CLAY MD 04/28/21 1614: Assessment/Plan Assessment/Plan agree with medical students note, I rounded via camera, physical based on RN and medical student's report Agree with treatment plan Critical Care: Critically Ill Patient Time spent with patient (mins): 25 Supervisory-Addendum Brief Verification & Attestation Participated in pt care: history, physical Personally performed: history Care discussed with: Medical Student, NAVIGATING OFFICER Procedures: n/a Results interpretation: Verified all documentation I rounded with RN and medical student thru video, Agree with treatment plan, Physical findings are those reported to me by RN and medical student.Family has agreed to trach/PEG to be done Monday BISHOP FRANCES MED STUDENT Apr 28, 2021 08:27 LOLY CLAY MD Apr 28, 2021 16:14 Addendum: LOLY CLAY MD on 04/28/21 @ 16:15 BISHOP FRANCES MED STUDENT Apr 28, 2021 10:32 LOLY CLAY MD Apr 28, 2021 16:30 BISHOP FRANCES MED STUDENT Apr 28, 2021 08:40 LOLY CLAY MD Apr 28, 2021 16:37
[2021-04-28] MEDS: ANIDULAFUNGIN INJECTION 100 MG in NS (IVPB) 100 ML IV SCH (08:46)
[2021-04-28] MEDS: APIXABAN 5 MG (ELIQUIS) TABLET PO SCH (08:46)
[2021-04-28] MEDS: PANTOPRAZOLE 40 MG (PROTONIX) VIAL IV SCH (08:46)
--- NOTE | 2021-04-28 09:13 | Progress Note - Cardiology ---
Cardiology SOAP Progress Note Subjective: Intubated and sedated Objective: I&O/Vital Signs 04/29/21 04/29/21 04/29/21 04/29/21 00:49 01:00 01:00 01:15 Temp 38.6 38.7 Pulse 80 103 98 Resp 21 B/P (MAP) 103/46 102/72 (82) Pulse Ox 97 O2 Delivery Mechanical Ventilator O2 Flow Rate 50.00 04/29/21 04/29/21 04/29/21 04/29/21 01:32 01:45 01:46 02:00 Temp 38.0 38.7 Pulse 93 79 Resp 18 B/P (MAP) 74/46 126/79 (95) Pulse Ox 98 O2 Delivery Mechanical Ventilator Mechanical Ventilator O2 Flow Rate 30.00 30.00 04/29/21 04/29/21 04/29/21 04/29/21 03:00 03:02 04:00 04:00 Temp 38.6 38.1 Pulse 75 80 62 Resp 18 18 18 B/P (MAP) 101/73 (82) 92/66 (75) Pulse Ox 99 99 98 97 O2 Delivery Mechanical Ventilator Mechanical Ventilator Mechanical Ventilator O2 Flow Rate 30.00 30.00 FiO2 30 30 04/29/21 04/29/21 04/29/21 04/29/21 05:00 05:30 06:00 06:29 Temp 37.7 37.4 Pulse 62 62 56 51 Resp 17 18 B/P (MAP) 88/70 (76) 84/62 86/65 (72) Pulse Ox 98 98 O2 Delivery Mechanical Ventilator Mechanical Ventilator O2 Flow Rate 30.00 30.00 04/29/21 04/29/21 04/29/21 04/29/21 06:55 07:00 08:00 09:00 Temp 37.2 37.1 37.0 Pulse 59 96 50 46 Resp 18 18 17 19 B/P (MAP) 114/84 (94) 96/63 (74) 108/77 (87) Pulse Ox 93 100 97 98 O2 Delivery Mechanical Ventilator Mechanical Ventilator Mechanical Ventilator O2 Flow Rate 30.00 30.00 30.00 FiO2 30 04/29/21 04/29/21 10:00 10:27 Temp 36.9 Pulse 46 53 Resp 17 B/P (MAP) 90/64 (73) 81/58 Pulse Ox 98 O2 Delivery Mechanical Ventilator O2 Flow Rate 30.00 04/29/21 00:00 Intake Total 1095 ml Output Total 2300 ml Balance -1205 ml Constitutional: other (Intubated, on mech vent, unable to communicate; I did not physically examine the patient to reduce exposure to COVID-19) Results/Procedures: Labs Laboratory Tests 04/28/21 12:30: Glucometer 101 04/28/21 18:00: Glucometer 89 04/29/21 03:55: White Blood Count 17.5H, Red Blood Count 4.09L, Hemoglobin 12.5L, Hematocrit 38L , Mean Corpuscular Volume 93, Mean Corpuscular Hemoglobin 31, Mean Corpuscular Hemoglobin Concent 33, Red Cell Distribution Width 14.2, Platelet Count 557H, Mean Platelet Volume 10.4, Immature Granulocyte % (Auto) 2, Neutrophils (%) (Auto) 88H, Lymphocytes (%) (Auto) 5L, Monocytes (%) (Auto) 5, Eosinophils (%) (Auto) 1, Basophils (%) (Auto) 1, Neutrophils # (Auto) 15.3H, Lymphocytes # (Auto) 0.9L, Monocytes # (Auto) 0.8, Eosinophils # (Auto) 0.1, Basophils # (Auto) 0.1, Immature Granulocyte # (Auto) 0.3H, Neutrophils % (Manual) 87, Lymphocytes % (Manual) 5, Monocytes % (Manual) 6, Eosinophils % (Manual) 1, Baso phils % (Manual) 1, Blood Morphology Comment NORMAL, Blood Gas Puncture Site LFT RAD, Blood Gas Patient Temperature 38.1, Arterial Blood pH 7.46H, Arterial Blood Partial Pressure CO2 34L, Arterial Blood Partial Pressure O2 66L, Arterial Blood HCO3 23, Arterial Blood Total CO2 24.4, Arterial Blood Oxygen Saturation 93L, Arterial Blood Base Excess 0.3, Aldo Test POS, Blood Gas Ventilator Setting YES, Blood Gas Inspired Oxygen 30%, Sodium Level 139, Potassium Level 4.2, Chloride Level 106, Carbon Dioxide Level 24, Anion Gap 9, Blood Urea Nitrogen 15, Creatinine 0.65, Estimat Glomerular Filtration Rate 120, BUN/Creatinine Ratio 23, Glucose Level 95, Calcium Level 7.7L, Corrected Calcium 9.3, Phosphorus Level 3.2, Magnesium Level 1.9, Total Bilirubin 0.8, Aspartate Amino Transf (AST/SGOT) 52H, Alanine Aminotransferase (ALT/SGPT) 91H, Alkaline Phosphatase 201H, Total Protein 4.9L, Albumin 2.0L 04/29/21 11:24: Glucometer 104 Microbiology 04/26/21 Blood Culture - Preliminary, Resulted No growth 04/13/21 Gram Stain - Final, Complete 04/13/21 Sputum Culture - Final, Complete Usual upper respiratory jack A/P: Assessment: COVID-19 pneumonia progressing to resp failure and requiring mechanical ventilation A Fib of unknown duration (seen on admission on 04/11/21), ventricular rate is well-controlled - OAC with Eliquis Plan: * Cardiac status is essentially unchanged * Hospitalist and ICU services are managing COVID-19 and pneumonia and resp failure * Ventricular rate from A Fib continues to remain controlled * Continue anticoag for stroke prophylaxis * Monitor labs HORTENCIA STAFFORD Apr 28, 2021 09:13
--- NOTE | 2021-04-28 12:14 | Progress Note - Cardiology ---
Cardiology SOAP Progress Note Subjective: Still intubated and on mech vent; not able to respond Objective: I&O/Vital Signs 04/28/21 04/28/21 04/28/21 04/28/21 00:35 00:52 00:57 01:00 Temp 38.2 Pulse 100 Resp 17 B/P (MAP) 133/78 (96) Pulse Ox 93 O2 Delivery Mechanical Ventilator Mechanical Ventilator Mechanical Ventilator Mechanical Ventilator O2 Flow Rate 25.00 30.00 35.00 35.00 04/28/21 04/28/21 04/28/21 04/28/21 01:00 02:00 02:52 03:00 Temp 38.2 38.1 Pulse 100 85 105 97 Resp 19 18 9 B/P (MAP) 108/74 (85) 128/84 (99) Pulse Ox 95 94 94 O2 Delivery Mechanical Ventilator Mechanical Ventilator O2 Flow Rate 35.00 35.00 FiO2 30 04/28/21 04/28/21 04/28/21 04/28/21 03:40 04:00 04:00 04:10 Temp 38.2 38.2 38.1 Pulse 97 Resp 18 B/P (MAP) 139/77 (97) Pulse Ox 95 96 O2 Delivery Mechanical Ventilator Mechanical Ventilator O2 Flow Rate 35.00 FiO2 35 04/28/21 04/28/21 04/28/21 04/28/21 05:00 05:15 06:05 07:00 Temp 37.9 37.6 37.4 Pulse 95 97 105 75 Resp 28 17 16 17 B/P (MAP) 94/68 (77) 100/63 (75) 80/47 (58) Pulse Ox 93 99 98 97 O2 Delivery Mechanical Ventilator Mechanical Ventilator Mechanical Ventilator O2 Flow Rate 35.00 35.00 35.00 04/28/21 04/28/21 04/28/21 04/28/21 07:00 07:10 08:00 08:00 Temp 37.2 Pulse 74 100 79 Resp 18 18 B/P (MAP) 101/59 (73) Pulse Ox 97 97 99 O2 Delivery Mechanical Ventilator Mechanical Ventilator O2 Flow Rate 35.00 FiO2 35 35 04/28/21 04/28/21 04/28/21 09:00 10:00 10:33 Temp 37.1 37.0 Pulse 101 90 65 Resp 20 17 18 B/P (MAP) 124/73 (90) 117/69 (85) Pulse Ox 97 95 95 O2 Delivery Mechanical Ventilator Mechanical Ventilator O2 Flow Rate 35.00 35.00 FiO2 35 04/28/21 00:00 Intake Total 1095 ml Output Total 1750 ml Balance -655 ml Constitutional: other (Intubated, on mech vent, unable to communicate; I did not physically examine the patient to reduce exposure to COVID-19) Results/Procedures: Labs Laboratory Tests 04/27/21 12:53: Glucometer 103 04/27/21 17:35: Glucometer 80 04/27/21 23:40: Glucometer 79 04/28/21 03:40: White Blood Count 12.1H, Red Blood Count 4.36, Hemoglobin 13.5, Hematocrit 41, Mean Corpuscular Volume 93, Mean Corpuscular Hemoglobin 31, Mean Corpuscular Hemoglobin Concent 33, Red Cell Distribution Width 14.4, Platelet Count 484H, Mean Platelet Volume 10.2, Immature Granulocyte % (Auto) 2, Neutrophils (%) (Auto) 82H, Lymphocytes (%) (Auto) 8L, Monocytes (%) (Auto) 5, Eosinophils (%) (Auto) 2, Basophils (%) (Auto) 1, Neutrophils # (Auto) 10.0H, Lymphocytes # (Auto) 1.0, Monocytes # (Auto) 0.6, Eosinophils # (Auto) 0.3, Basophils # (Auto) 0.1, Immature Granulocyte # (Auto) 0.2H, Blood Gas Puncture Site ART LINE, Blood Gas Patient Temperature 38.2, Arterial Blood pH 7.49H, Arterial Blood Partial Pressure CO2 33L, Arterial Blood Partial Pressure O2 61L, Arterial Blood HCO3 25, Arterial Blood Total CO2 25.5, Arterial Blood Oxygen Saturation 91L, Arterial Blood Base Excess 1.6, Aldo Test ART LINE, Blood Gas Ventilator Setting YES, Blood Gas Inspired Oxygen 35%, Sodium Level 137, Potassium Level 4.1, Chloride Level 106, Carbon Dioxide Level 20L, Anion Gap 11, Blood Urea Nitrogen 14, Creatinine 0.60, Estimat Glomerular Filtration Rate 132, BUN/Creatinine Ratio 23, Glucose Level 89, Calcium Level 7.8L, Corrected Calcium 9.3, Phosphorus Level 3.1, Magnesium Level 1.9, Total Bilirubin 0.7, Aspartate Amino Transf (AST/SGOT) 46H, Alanine Aminotransferase (ALT/SGPT) 94H, Alkaline Phosphatase 202H, Total Protein 5.4L, Albumin 2.1L Microbiology 04/26/21 Blood Culture - Preliminary, Resulted No growth 04/13/21 Gram Stain - Final, Complete 04/13/21 Sputum Culture - Final, Complete Usual upper respiratory jack Laboratory Tests 04/27/21 03:02 04/28/21 03:40 A/P: Assessment: COVID-19 pneumonia progressing to resp failure and requiring mechanical ventilation A Fib of unknown duration (seen on admission on 04/11/21), ventricular rate is well-controlled - OAC with Eliquis Plan: * Cardiac status is essentially unchanged * Hospitalist and ICU services are managing COVID-19 and pneumonia and resp failure * Ventricular rate from A Fib continues to remain controlled * Continue anticoag for stroke prophylaxis * Monitor labs RONNIE RAMIREZ MD FACP FAC CCDS Apr 28, 2021 12:14
[2021-04-28] MEDS: 1/2 NS IV SOLUTION 1,000 ML IV SCH (15:20)
[2021-04-28] MEDS: AtorvaSTATin TABLET 10 MG TABLET PO SCH (22:16)
--- NOTE | 2021-04-28 22:24 | Progress Note - Surgery ---
Subjective Date Seen by a Provider: Apr 28, 2021 Time Seen by a Provider: 11:00 Subjective/Events-last exam Patient remains intubated and sedated. Patient not having successful weaning from ventilator. Have been asked to fire the patient again for trach and PEG. Objective Exam Vital Signs Date Time Temp Pulse Resp B/P (MAP) Pulse Ox O2 Delivery O2 Flow Rate FiO2 04/28/21 20:00 97 Mechanical Ventilator 30 04/28/21 19:58 93 18 99 30 04/28/21 19:00 86 04/28/21 18:00 38.3 99 21 98/68 (78) 97 Mechanical Ventilator 35.00 04/28/21 17:00 38.3 92 19 92/62 (72) 99 Mechanical Ventilator 35.00 04/28/21 16:18 97 Mechanical Ventilator 35 04/28/21 16:00 38.4 103 21 112/66 (81) 99 Mechanical Ventilator 35.00 04/28/21 15:00 38.5 101 19 81/56 (64) 97 Mechanical Ventilator 35.00 04/28/21 14:58 38.3 04/28/21 14:34 96 27 93 35 04/28/21 14:28 38.3 04/28/21 14:00 38.1 93 38 134/83 (100) 94 Mechanical Ventilator 35.00 04/28/21 13:00 37.7 98 25 137/78 (97) 90 Mechanical Ventilator 35.00 04/28/21 12:54 90 04/28/21 12:00 37.2 86 26 133/78 (96) 95 Mechanical Ventilator 35.00 04/28/21 12:00 94 Mechanical Ventilator 35 04/28/21 11:00 37.0 87 28 138/80 (99) 95 Mechanical Ventilator 35.00 04/28/21 10:33 65 18 95 35 04/28/21 10:00 37.0 90 17 117/69 (85) 95 Mechanical Ventilator 35.00 04/28/21 09:00 37.1 101 20 124/73 (90) 97 Mechanical Ventilator 35.00 04/28/21 08:00 37.2 79 18 101/59 (73) 99 Mechanical Ventilator 35.00 04/28/21 08:00 97 Mechanical Ventilator 35 04/28/21 07:10 100 18 97 35 04/28/21 07:00 74 04/28/21 07:00 37.4 75 17 80/47 (58) 97 Mechanical Ventilator 35.00 04/28/21 06:05 37.6 105 16 100/63 (75) 98 Mechanical Ventilator 35.00 04/28/21 05:15 37.9 97 17 94/68 (77) 99 Mechanical Ventilator 35.00 04/28/21 05:00 95 28 93 04/28/21 04:10 38.1 04/28/21 04:00 96 Mechanical Ventilator 35 04/28/21 04:00 38.2 97 18 139/77 (97) 95 Mechanical Ventilator 35.00 04/28/21 03:40 38.2 04/28/21 03:00 38.1 97 9 128/84 (99) 94 Mechanical Ventilator 35.00 04/28/21 02:52 105 18 94 30 04/28/21 02:00 38.2 85 19 108/74 (85) 95 Mechanical Ventilator 35.00 04/28/21 01:00 100 04/28/21 01:00 38.2 100 17 133/78 (96) 93 Mechanical Ventilator 35.00 04/28/21 00:57 Mechanical Ventilator 35.00 04/28/21 00:52 Mechanical Ventilator 30.00 04/28/21 00:35 Mechanical Ventilator 25.00 04/28/21 00:07 Mechanical Ventilator 30.00 04/28/21 00:00 98 Mechanical Ventilator 30 04/28/21 00:00 38.2 82 14 120/74 (89) 90 Mechanical Ventilator 35.00 04/27/21 23:43 77 18 111/71 04/27/21 23:00 38.1 77 18 111/71 (84) 94 Mechanical Ventilator 35.00 04/27/21 22:31 73 18 96 30 I & O 04/28/21 07:00 Intake Total 2190 ml Output Total 2775 ml Balance -585 ml Capillary Refill : Less Than 3 Seconds General Appearance: WD/WN, Chronically ill, Other (Sedated and intubated) HEENT: PERRL/EOMI, Other (Intubated) Neck: Non Tender, Supple Respiratory: No Accessory Muscle Use, No Respiratory Distress Cardiovascular: No Edema, Normal Peripheral Pulses, Irregularly Irregular, Other (afib per monitor) Peripheral Pulses: 1+ Dorsalis Pedis (R), 1+ Left Dors-Pedis (L) (see free text), 1+ Radial Pulses (L) Gastrointestinal: soft; No distended Extremity: Normal Capillary Refill, No Pedal Edema Neurologic/Psychiatric: No Alert; Other (sedated) Skin: Normal Color, Warm/Dry, Other (No breakdown on sacrum/coccyx per C[employer] SH[employer]ENER report) Lymphatic: No Adenopathy Results Lab Laboratory Tests 04/27/21 23:40: Glucometer 79 04/28/21 03:40: White Blood Count 12.1H, Red Blood Count 4.36, Hemoglobin 13.5, Hematocrit 41, Mean Corpuscular Volume 93, Mean Corpuscular Hemoglobin 31, Mean Corpuscular Hemoglobin Concent 33, Red Cell Distribution Width 14.4, Platelet Count 484H, Mean Platelet Volume 10.2, Immature Granulocyte % (Auto) 2, Neutrophils (%) (Auto) 82H, Lymphocytes (%) (Auto) 8L, Monocytes (%) (Auto) 5, Eosinophils (%) (Auto) 2, Basophils (%) (Auto) 1, Neutrophils # (Auto) 10.0H, Lymphocytes # (Auto) 1.0, Monocytes # (Auto) 0.6, Eosinophils # (Auto) 0.3, Basophils # (Auto) 0.1, Immature Granulocyte # (Auto) 0.2H, Blood Gas Puncture Site ART LINE, Blood Gas Patient Temperature 38.2, Arterial Blood pH 7.49H, Arterial Blood Partial Pressure CO2 33L, Arterial Blood Partial Pressure O2 61L, Arterial Blood HCO3 25, Arterial Blood Total CO2 25.5, Arterial Blood Oxygen Saturation 91L, Arterial Blood Base Excess 1.6, Aldo Test ART LINE, Blood Gas Ventilator Setting YES, Blood Gas Inspired Oxygen 35%, Sodium Level 137, Potassium Level 4.1, Chloride Level 106, Carbon Dioxide Level 20L, Anion Gap 11, Blood Urea Nitrogen 14, Creatinine 0.60, Estimat Glomerular Filtration Rate 132, BUN/Creatinine Ratio 23, Glucose Level 89, Calcium Level 7.8L, Corrected Calcium 9.3, Phosphorus Level 3.1, Magnesium Level 1.9, Total Bilirubin 0.7, Aspartate Amino Transf (AST/SGOT) 46H, Alanine Aminotransferase (ALT/SGPT) 94H, Alkaline Phosphatase 202H, Total Protein 5.4L, Albumin 2.1L 04/28/21 12:30: Glucometer 101 04/28/21 18:00: Glucometer 89 Microbiology 04/26/21 Blood Culture - Preliminary, Resulted No growth 04/13/21 Gram Stain - Final, Complete 04/13/21 Sputum Culture - Final, Complete Usual upper respiratory jack Assessment/Plan Assessment/Plan Assessment/Plan COVID-19 pneumonia Acute hypoxic respiratory failure Ventilator dependence Atrial fibrillation Status post bacterial pneumonia Current use anticoagulation Patient unable to be extubated family would like to have tracheostomy percutaneous endoscopic gastrostomy tube placed. Patient current on anticoagulation will need to be held for procedure. Would have to hold tube feeds after midnight on . We will plan on having trach and PEG performed on Monday if unable to be extubated at that time. CARLOS BATES DO Apr 28, 2021 22:24
[2021-04-28] MEDS: fentaNYL DRIP PRE-MIX 250 ML IV SCH (23:45)
[2021-04-29] VITALS (27 sets, daily range): BP systolic 72–129; BP diastolic 39–97
[2021-04-29] MEDS: PROPOFOL DRIP (ICU) 100 ML IV SCH ×2 (00:49→21:26)
[2021-04-29] MEDS: ACETAMINOPHEN 500 MG TAB (TYLENOL) PO PRN ×2 (01:15→17:13)
[2021-04-29] MEDS: PHENYLEPHRINE DOUBLE STRENGTH 20MG/ 250 ML IV SCH ×10 (01:32→21:26)
[2021-04-29] MEDS: inSUlin ASPART (NovoLOG) 1 UNIT/0.01 ML (CHARGE PER UNIT) SQ SCH ×4 (01:33→18:02)
[2021-04-29] MEDS: CISATRACURIUM DRIP 250 ML IV SCH ×5 (01:33→23:56)
[2021-04-29] MEDS: MEROPENEM 1,000 MG in WATER (STERILE) FOR INJECTION 20 ML IV SCH ×3 (01:45→17:13)
[2021-04-29] MEDS: RT-ALBUTEROL HFA 8.5 GM INHALER IH SCH ×6 (03:02→21:14)
[2021-04-29 04:28] LABS: ABG BASE EXCESS 0.3 MMOL/L (-2.5-2.5); ABG OXYGEN SATURATION 93 % (94-100); ABG PCO2 34 MMHG (35-45); ABG PH 7.46 (7.37-7.43); ABG PO2 66 MMHG (79-93); ABG TCO2 24.4 MMOL/L (21.0-31.0)
[2021-04-29 04:33] LABS: ALLENS TEST POS; INSPIRED O2 30%; PATIENT TEMP 38.1; VENTILATOR YES
[2021-04-29 04:34] LABS: BASOPHILS # (AUTO) 0.1 10^3/uL (0.0-0.1); BASOPHILS % (AUTO) 1 % (0-10); EOSINOPHILS # (AUTO) 0.1 10^3/uL (0.0-0.3); EOSINOPHILS % (AUTO) 1 % (0-10); HEMATOCRIT 38 % (40-54); HEMOGLOBIN 12.5 g/dL (13.3-17.7); LYMPHOCYTES # (AUTO) 0.9 10^3/uL (1.0-4.0); LYMPHOCYTES % (AUTO) 5 % (12-44); MEAN CORPUSCULAR HEMOGLOBIN 31 pg (25-34); MEAN CORPUSCULAR HGB CONC 33 g/dL (32-36); MEAN CORPUSCULAR VOLUME 93 fL (80-99); MEAN PLATELET VOLUME 10.4 fL (9.0-12.2); MONOCYTES # (AUTO) 0.8 10^3/uL (0.0-1.0); MONOCYTES % (AUTO) 5 % (0-12); NEUTROPHILS # (AUTO) 15.3 10^3/uL (1.8-7.8); NEUTROPHILS % (AUTO) 88 % (42-75); PLATELET COUNT 557 10^3/uL (130-400); WHITE BLOOD COUNT 17.5 10^3/uL (4.3-11.0)
[2021-04-29 04:46] LABS: POTASSIUM 4.2 MMOL/L (3.6-5.0)
[2021-04-29 04:47] LABS: CALCIUM 7.7 MG/DL (8.5-10.1)
[2021-04-29 04:48] LABS: TOTAL PROTEIN 4.9 GM/DL (6.4-8.2)
[2021-04-29 04:50] LABS: BILIRUBIN,TOTAL 0.8 MG/DL (0.1-1.0)
[2021-04-29 04:51] LABS: PHOSPHORUS 3.2 MG/DL (2.3-4.7)
[2021-04-29 04:52] LABS: CREATININE SERUM 0.65 MG/DL (0.60-1.30)
[2021-04-29 04:55] LABS: MAGNESIUM 1.9 MG/DL (1.6-2.4)
[2021-04-29 05:24] LABS: NEUTROPHILS % (MANUAL) 87 %
[2021-04-29 05:25] LABS: BASOPHILS % (MANUAL) 1 %; EOSINOPHILS % (MANUAL) 1 %; LYMPHOCYTES % (MANUAL) 5 %; MONOCYTES % (MANUAL) 6 %; RBC MORPH NORMAL
--- NOTE | 2021-04-29 06:04 | Progress Note ---
Subjective Date Seen by a Provider: Apr 28, 2021 Time Seen by a Provider: 11:00 Subjective/Events-last exam Late entry due to inadvertently missing note yesterday Pt will need peg tube and trach Meropenem and Eraxis maintained Fever sporadically occurs Objective Exam Last Set of Vital Signs Vital Signs Date Time Temp Pulse Resp B/P (MAP) Pulse Ox O2 Delivery O2 Flow Rate FiO2 04/29/21 05:30 62 84/62 04/29/21 05:00 37.7 17 98 Mechanical Ventilator 30.00 04/29/21 04:00 30 Capillary Refill : Less Than 3 Seconds I&O Intake and Output 04/29/21 00:00 Intake Total 2190 ml Output Total 3525 ml Balance -1335 ml Tube Feeding 1440 ml Other 750 ml Output Urine Total 3525 ml General: Other (Intubated and sedated) Lungs: Other (Coarse breath sounds) Heart: Regular Rate Results Lab Laboratory Tests 04/28/21 12:30: Glucometer 101 04/28/21 18:00: Glucometer 89 04/29/21 03:55: White Blood Count 17.5H, Red Blood Count 4.09L, Hemoglobin 12.5L, Hematocrit 38L , Mean Corpuscular Volume 93, Mean Corpuscular Hemoglobin 31, Mean Corpuscular Hemoglobin Concent 33, Red Cell Distribution Width 14.2, Platelet Count 557H, Mean Platelet Volume 10.4, Immature Granulocyte % (Auto) 2, Neutrophils (%) (Auto) 88H, Lymphocytes (%) (Auto) 5L, Monocytes (%) (Auto) 5, Eosinophils (%) (Auto) 1, Basophils (%) (Auto) 1, Neutrophils # (Auto) 15.3H, Lymphocytes # (Auto) 0.9L, Monocytes # (Auto) 0.8, Eosinophils # (Auto) 0.1, Basophils # (Auto) 0.1, Immature Granulocyte # (Auto) 0.3H, Neutrophils % (Manual) 87, Lymphocytes % (Manual) 5, Monocytes % (Manual) 6, Eosinophils % (Manual) 1, Basophils % (Manual) 1, Blood Morphology Comment NORMAL, Blood Gas Puncture Site LFT RAD, Blood Gas Patient Temperature 38.1, Arterial Blood pH 7.46H, Arterial Blood Partial Pressure CO2 34L, Arterial Blood Partial Pressure O2 66L, Arterial Blood HCO3 23, Arterial Blood Total CO2 24.4, Arterial Blood Oxygen Saturation 93L, Arterial Blood Base Excess 0.3, Aldo Test POS, Blood Gas Ventilator Setting YES, Blood Gas Inspired Oxygen 30%, Sodium Level 139, Potassium Level 4.2, Chloride Level 106, Carbon Dioxide Level 24, Anion Gap 9, Blood Urea Nitrogen 15, Creatinine 0.65, Estimat Glomerular Filtration Rate 120, BUN/Creatinine Ratio 23, Glucose Level 95, Calcium Level 7.7L, Corrected Calcium 9.3, Phosphorus Level 3.2, Magnesium Level 1.9, Total Bilirubin 0.8, Aspartate Amino Transf (AST/SGOT) 52H, Alanine Aminotransferase (ALT/SGPT) 91H, Alkaline Phosphatase 201H, Total Protein 4.9L, Albumin 2.0L Microbiology 04/26/21 Blood Culture - Preliminary, Resulted No growth 04/13/21 Gram Stain - Final, Complete 04/13/21 Sputum Culture - Final, Complete Usual upper respiratory jack Assessment/Plan Assessment/Plan Assess & Plan/Chief Complaint Assessment: COVID-19 pneumonia Acute hypoxic respiratory failure Ventilator dependence Status post bacterial pneumonia Plan: Supportive care Ventilator management appreciated 04/25/2021: Spoke to Steven zamora trach and PEG may be needed and he agrees with plan Not weanable yet DC isolation 04/26/2021: Trach and PEG may be required Supportive care 04/27/2021: Supportive care Monitor closely 04/28/2021: Needs PEG and trach COTY SHIPMAN DO Apr 29, 2021 06:04
[2021-04-29] MEDS: POTASSIUM CL 10MEQ/50ML IVPB 50 ML IV SCH (06:16)
[2021-04-29] MEDS: MAGNESIUM 1 GM/100 ML IVPB 100 ML IV SCH (06:16)
[2021-04-29] MEDS: KCL 20 MEQ TAB (K-DUR) PO SCH (06:17)
[2021-04-29] MEDS: PANTOPRAZOLE 40 MG (PROTONIX) VIAL IV SCH (08:34)
[2021-04-29] MEDS: ANIDULAFUNGIN INJECTION 100 MG in NS (IVPB) 100 ML IV SCH (08:35)
[2021-04-29] MEDS: 1/2 NS IV SOLUTION 1,000 ML IV SCH (08:46)
--- NOTE | 2021-04-29 09:48 | Progress Note - Cardiology ---
Cardiology SOAP Progress Note Subjective: Intubated and on mech vent. Unresponsive Objective: I&O/Vital Signs 04/28/21 04/28/21 04/28/21 04/28/21 22:00 22:45 23:00 23:15 Temp 37.9 37.8 Pulse 93 87 95 Resp 26 18 27 B/P (MAP) 134/96 (109) 120/89 (99) Pulse Ox 96 95 94 O2 Delivery Mechanical Ventilator Mechanical Ventilator Mechanical Ventilator O2 Flow Rate 30.00 30.00 50.00 FiO2 50 04/29/21 04/29/21 04/29/21 04/29/21 00:00 00:00 00:49 01:00 Temp 38.0 Pulse 96 80 103 Resp 23 B/P (MAP) 105/79 (88) 103/46 Pulse Ox 97 92 O2 Delivery Mechanical Ventilator Mechanical Ventilator O2 Flow Rate 50.00 FiO2 30 04/29/21 04/29/21 04/29/21 04/29/21 01:00 01:15 01:32 01:45 Temp 38.6 38.7 38.0 Pulse 98 93 Resp 21 B/P (MAP) 102/72 (82) 74/46 Pulse Ox 97 O2 Delivery Mechanical Ventilator O2 Flow Rate 50.00 04/29/21 04/29/21 04/29/21 04/29/21 01:46 02:00 03:00 03:02 Temp 38.7 38.6 Pulse 79 75 80 Resp 18 18 18 B/P (MAP) 126/79 (95) 101/73 (82) Pulse Ox 98 99 99 O2 Delivery Mechanical Ventilator Mechanical Ventilator Mechanical Ventilator O2 Flow Rate 30.00 30.00 30.00 FiO2 30 04/29/21 04/29/21 04/29/21 04/29/21 04:00 04:00 05:00 05:30 Temp 38.1 37.7 Pulse 62 62 62 Resp 18 17 B/P (MAP) 92/66 (75) 88/70 (76) 84/62 Pulse Ox 98 97 98 O2 Delivery Mechanical Ventilator Mechanical Ventilator Mechanical Ventilator O2 Flow Rate 30.00 30.00 FiO2 30 04/29/21 04/29/21 06:00 06:55 Temp 37.4 Pulse 56 59 Resp 18 18 B/P (MAP) 86/65 (72) Pulse Ox 98 93 O2 Delivery Mechanical Ventilator O2 Flow Rate 30.00 FiO2 30 04/29/21 00:00 Intake Total 1095 ml Output Total 2300 ml Balance -1205 ml Constitutional: other (Intubated, on mech vent, unable to communicate; I did not physically examine the patient to reduce exposure to COVID-19) Results/Procedures: Labs Laboratory Tests 04/28/21 12:30: Glucometer 101 04/28/21 18:00: Glucometer 89 04/29/21 03:55: White Blood Count 17.5H, Red Blood Count 4.09L, Hemoglobin 12.5L, Hematocrit 38L , Mean Corpuscular Volume 93, Mean Corpuscular Hemoglobin 31, Mean Corpuscular Hemoglobin Concent 33, Red Cell Distribution Width 14.2, Platelet Count 557H, Mean Platelet Volume 10.4, Immature Granulocyte % (Auto) 2, Neutrophils (%) (Auto) 88H, Lymphocytes (%) (Auto) 5L, Monocytes (%) (Auto) 5, Eosinophils (%) (Auto) 1, Basophils (%) (Auto) 1, Neutrophils # (Auto) 15.3H, Lymphocytes # (Auto) 0.9L, Monocytes # (Auto) 0.8, Eosinophils # (Auto) 0.1, Basophils # (Auto) 0.1, Immature Granulocyte # (Auto) 0.3H, Neutrophils % (Manual) 87, Lymphocytes % (Manual) 5, Monocytes % (Manual) 6, Eosinophils % (Manual) 1, Basophils % (Manual) 1, Blood Morphology Comment NORMAL, Blood Gas Puncture Site LFT RAD, Blood Gas Patient Temperature 38.1, Arterial Blood pH 7.46H, Arterial Blood Partial Pressure CO2 34L, Arterial Blood Partial Pressure O2 66L, Arterial Blood HCO3 23, Arterial Blood Total CO2 24.4, Arterial Blood Oxygen Saturation 93L, Arterial Blood Base Excess 0.3, Aldo Test POS, Blood Gas Ventilator Setting YES, Blood Gas Inspired Oxygen 30%, Sodium Level 139, Potassium Level 4.2, Chloride Level 106, Carbon Dioxide Level 24, Anion Gap 9, Blood Urea Nitrogen 15, Creatinine 0.65, Estimat Glomerular Filtration Rate 120, BUN/Creatinine Ratio 23, Glucose Level 95, Calcium Level 7.7L, Corrected Calcium 9.3, Phosphorus Level 3.2, Magnesium Level 1.9, Total Bilirubin 0.8, Aspartate Amino Transf (AST/SGOT) 52H, Alanine Aminotransferase (ALT/SGPT) 91H, Alkaline Phosphatase 201H, Total Protein 4.9L, Albumin 2.0L Microbiology 04/26/21 Blood Culture - Preliminary, Resulted No growth 04/13/21 Gram Stain - Final, Complete 04/13/21 Sputum Culture - Final, Complete Usual upper respiratory jack A/P: Assessment: COVID-19 pneumonia progressing to resp failure and requiring mechanical ventilation A Fib of unknown duration (seen on admission on 04/11/21), pt is known to have intermittent bradycardia without any hemodynamic significance - OAC with Eliquis Plan: * Cardiac status is essentially unchanged * Hospitalist and ICU services are managing COVID-19 and pneumonia and resp failure * Ventricular rate from A Fib continues to remain controlled (chronically slow vent response) * Continue anticoag for stroke prophylaxis * Monitor labs RONNIE RAMIREZ MD FACP FAC CCDS Apr 29, 2021 09:48
[2021-04-29] MEDS ORDERED: ATROPINE INJECTION 1 MG/10 ML SYR (ABBOTT) ONE (11:04)
[2021-04-29] MEDS: fentaNYL DRIP PRE-MIX 250 ML IV SCH ×2 (11:43→21:27)
--- NOTE | 2021-04-29 11:58 | Progress Note ---
Subjective Date Seen by a Provider: Apr 29, 2021 Time Seen by a Provider: 11:00 Subjective/Events-last exam Patient bradycardic Updated son Steven and Radha patient's and told them to come to see the patient due to decline Family at bedside Spoke to Steven via phone and he wants to continue aggressive treatment even full code with chest compressions Son not willing to consider terminal extubation or DNR. Tried to explain poor outcomes and futility of care provided but son and family unwilling to consider DNR. Objective Exam Last Set of Vital Signs Vital Signs Date Time Temp Pulse Resp B/P (MAP) Pulse Ox O2 Delivery O2 Flow Rate FiO2 04/29/21 10:27 53 81/58 04/29/21 10:00 36.9 17 98 Mechanical Ventilator 30.00 04/29/21 06:55 30 Capillary Refill : Less Than 3 Seconds I&O Intake and Output 04/28/21 23:59 Intake Total 2190 ml Output Total 3525 ml Balance -1335 ml Tube Feeding 1440 ml Other 750 ml Output Urine Total 3525 ml General: Other (sedated and intubated) Lungs: Other (diminished) Heart: Other (dandre) Results Lab Laboratory Tests 04/28/21 12:30: Glucometer 101 04/28/21 18:00: Glucometer 89 04/29/21 03:55: White Blood Count 17.5H, Red Blood Count 4.09L, Hemoglobin 12.5L, Hematocrit 38L , Mean Corpuscular Volume 93, Mean Corpuscular Hemoglobin 31, Mean Corpuscular Hemoglobin Concent 33, Red Cell Distribution Width 14.2, Platelet Count 557H, Mean Platelet Volume 10.4, Immature Granulocyte % (Auto) 2, Neutrophils (%) (Auto) 88H, Lymphocytes (%) (Auto) 5L, Monocytes (%) (Auto) 5, Eosinophils (%) (Auto) 1, Basophils (%) (Auto) 1, Neutrophils # (Auto) 15.3H, Lymphocytes # (Auto) 0.9L, Monocytes # (Auto) 0.8, Eosinophils # (Auto) 0.1, Basophils # (Auto) 0.1, Immature Granulocyte # (Auto) 0.3H, Neutrophils % (Manual) 87, Lymphocytes % (Manual) 5, Monocytes % (Manual) 6, Eosinophils % (Manual) 1, Basophils % (Manual) 1, Blood Morphology Comment NORMAL, Blood Gas Puncture Site LFT RAD, Blood Gas Patient Temperature 38.1, Arterial Blood pH 7.46H, Arterial Blood Partial Pressure CO2 34L, Arterial Blood Partial Pressure O2 66L, Arterial Blood HCO3 23, Arterial Blood Total CO2 24.4, Arterial Blood Oxygen Saturation 93L, Arterial Blood Base Excess 0.3, Aldo Test POS, Blood Gas Ventilator Setting YES, Blood Gas Inspired Oxygen 30%, Sodium Level 139, Potassium Level 4.2, Chloride Level 106, Carbon Dioxide Level 24, Anion Gap 9, Blood Urea Nitrogen 15, Creatinine 0.65, Estimat Glomerular Filtration Rate 120, BUN/Creatinine Ratio 23, Glucose Level 95, Calcium Level 7.7L, Corrected Calcium 9.3, Phosphorus Level 3.2, Magnesium Level 1.9, Total Bilirubin 0.8, Aspartate Amino Transf (AST/SGOT) 52H, Alanine Aminotransferase (ALT/SGPT) 91H, Alkaline Phosphatase 201H, Total Protein 4.9L, Albumin 2.0L 04/29/21 11:24: Glucometer 104 Microbiology 04/26/21 Blood Culture - Preliminary, Resulted No growth 04/13/21 Gram Stain - Final, Complete 04/13/21 Sputum Culture - Final, Complete Usual upper respiratory jack Assessment/Plan Assessment/Plan Assess & Plan/Chief Complaint Assessment: COVID-19 pneumonia Acute hypoxic respiratory failure Ventilator dependence Status post bacterial pneumonia Plan: Supportive care Ventilator management appreciated 04/25/2021: Spoke to Steven son trach and PEG may be needed and he agrees with plan Not weanable yet DC isolation 04/26/2021: Trach and PEG may be required Supportive care 04/27/2021: Supportive care Monitor closely 04/28/2021: Needs PEG and trach 04/29/21: Family not willing to consider DNR COTY SHIPMAN DO Apr 29, 2021 11:58
--- NOTE | 2021-04-29 12:41 | Tele-ICU Progress Note ---
Subjective Time Seen by a Provider: 12:41 Sepsis Event Evaluation Height, Weight, BMI Height: '" Weight: lbs. oz. kg; 21.43 BMI Method: Exam Exam Patient acknowledged, consented, and participated in this virtual visit which was conducted using real time audio/video Vital Signs Date Time Temp Pulse Resp B/P (MAP) Pulse Ox O2 Delivery O2 Flow Rate FiO2 04/29/21 10:27 53 81/58 04/29/21 10:00 36.9 46 17 90/64 (73) 98 Mechanical Ventilator 30.00 04/29/21 09:00 37.0 46 19 108/77 (87) 98 Mechanical Ventilator 30.00 04/29/21 08:00 37.1 50 17 96/63 (74) 97 Mechanical Ventilator 30.00 04/29/21 07:00 37.2 96 18 114/84 (94) 100 Mechanical Ventilator 30.00 04/29/21 06:55 59 18 93 30 04/29/21 06:29 51 04/29/21 06:00 37.4 56 18 86/65 (72) 98 Mechanical Ventilator 30.00 04/29/21 05:30 62 84/62 04/29/21 05:00 37.7 62 17 88/70 (76) 98 Mechanical Ventilator 30.00 04/29/21 04:00 97 Mechanical Ventilator 30 04/29/21 04:00 38.1 62 18 92/66 (75) 98 Mechanical Ventilator 30.00 04/29/21 03:02 80 18 99 30 04/29/21 03:00 38.6 75 18 101/73 (82) 99 Mechanical Ventilator 30.00 04/29/21 02:00 38.7 79 18 126/79 (95) 98 Mechanical Ventilator 30.00 04/29/21 01:46 Mechanical Ventilator 30.00 04/29/21 01:45 38.0 04/29/21 01:32 93 74/46 04/29/21 01:15 38.7 04/29/21 01:00 38.6 98 21 102/72 (82) 97 Mechanical Ventilator 50.00 04/29/21 01:00 103 04/29/21 00:49 80 103/46 04/29/21 00:00 38.0 96 23 105/79 (88) 92 Mechanical Ventilator 50.00 04/29/21 00:00 97 Mechanical Ventilator 30 04/28/21 23:15 Mechanical Ventilator 50.00 04/28/21 23:00 37.8 95 27 120/89 (99) 94 Mechanical Ventilator 30.00 04/28/21 22:45 87 18 95 50 04/28/21 22:00 37.9 93 26 134/96 (109) 96 Mechanical Ventilator 30.00 04/28/21 21:00 38.0 82 18 103/69 (80) 97 Mechanical Ventilator 30.00 04/28/21 20:00 38.1 100 18 105/72 (83) 99 Mechanical Ventilator 30.00 04/28/21 20:00 Mechanical Ventilator 30.00 04/28/21 20:00 97 Mechanical Ventilator 30 04/28/21 19:58 93 18 99 30 04/28/21 19:00 86 04/28/21 19:00 38.2 86 20 96/60 (72) 98 Mechanical Ventilator 35.00 04/28/21 18:00 38.3 99 21 98/68 (78) 97 Mechanical Ventilator 35.00 04/28/21 17:00 38.3 92 19 92/62 (72) 99 Mechanical Ventilator 35.00 04/28/21 16:18 97 Mechanical Ventilator 35 04/28/21 16:00 38.4 103 21 112/66 (81) 99 Mechanical Ventilator 35.00 04/28/21 15:00 38.5 101 19 81/56 (64) 97 Mechanical Ventilator 35.00 04/28/21 14:58 38.3 04/28/21 14:34 96 27 93 35 04/28/21 14:28 38.3 04/28/21 14:00 38.1 93 38 134/83 (100) 94 Mechanical Ventilator 35.00 04/28/21 13:00 37.7 98 25 137/78 (97) 90 Mechanical Ventilator 35.00 04/28/21 12:54 90 I & O 04/29/21 07:00 Intake Total 2190 ml Output Total 3600 ml Balance -1410 ml Height & Weight Height: '" Weight: lbs. oz. kg; 21.43 BMI Method: General Appearance: WD/WN, Chronically ill, Other (Sedated and intubated) HEENT: PERRL/EOMI, Other (Intubated) Neck: Non Tender, Supple Respiratory: No Accessory Muscle Use, No Respiratory Distress Cardiovascular: No Edema, Normal Peripheral Pulses, Irregularly Irregular, Oth er (afib per monitor) Capillary Refill: Less Than 3 Seconds Peripheral Pulses: 1+ Dorsalis Pedis (R), 1+ Left Dors-Pedis (L) (see free text), 1+ Radial Pulses (L) Gastrointestinal: soft; No distended Extremity: Normal Capillary Refill, No Pedal Edema Neurologic/Psychiatric: No Alert; Other (sedated) Skin: Normal Color, Warm/Dry, Other (No breakdown on sacrum/coccyx per [employer] PROC[employer]OR report) Lymphatic: No Adenopathy Results Lab Laboratory Tests 04/28/21 03:40 04/29/21 03:55 Assessment/Plan Assessment/Plan (Tele-ICU Physician , Progress Note ) Available chart/ vitals / labs / Images reviewed Video assessment done using teleICU camera, rest of exam as per RN Discussed with RN , EXAM PER RN Events overnight : . more hypotensive FEBRILE 38.1 I/O = pos 1300 Drips: lisa 75 Pressors: off 04/19 hemodynamically stable Sedation gtt: ( RASS -3 ) fentanyl 75 versed 4 - NOT follow commands VENT SETTINGS and ABG reviewed Consultants: cards Hospital course: 04/11 - Vapotherm at 35 L and 85% 04/13 = to ICU , BiPAP 22/05 100% -> failed -> INTUBATED , peep 16 100% 04/14 - lisa/vaso , WBC 32 , AC 28 550 +12 55% 04/15 - hb ? 8.4 70 % +8 04/19 - AC 26 600 +16 70 % 04/20- AC 26 600 +12 50 % , NEW FEVER , possible aspiration , OFF pressors 04/22 - CTchest - bilat effusions 4 cm , infiltrtes L>R 04/26 - SBT 10/5 04/27 - started on merrem and antifungal 04/29 - lsia 75 A/P AHRF / ARDS due to severe COVID19 -intubated 04/13 - now on AC 18 600 +5 35% - Fio2 -- CTchest - bilat effusions 4 cm , infiltrtes L>R - sedation vaction follow commands , but inct cough - SBT 05/11 , elv WOB on 04/26 - to cont Shock - OFF vasopressors -04/20- BACK ON LEVO 04/28 - infection? bracicardia - check trop am [id number]-19 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 , Dx 3 weeks [employer] - he took Ivermectin ) -Steroids IV - started 04/12- TAPERING 04/22- STOPPED 04/26 -Hypercoagulable state , DDIMER > 20 on 04/10 -> eliquis ( no evidence of large PE on CT 04/10 ) Suspected superimposed bact PNA ( week 3 of covid , legionella ab neg ) -empiric ceftriaxone 04/11 Cx sputum 04/13 post intubation - usual jack -NEW FEVER 04/20 - suspected aspiration even 04/20 -> was already on zosyn 04/16 ->04/21 STILL FEBRILE ,-04/22 CTchest - bilat effusions 4 cm , infiltrtes L>R , not sispected empyema or abscess by images - will repeat spum cx ( from still not reported ) , cx from LPICC and repeat UA 04/27 - started on merrem and antifungal Anemia - stable - will change PPI back to qd 04/19 A Fib of unknown duration (seen on admission on 04/11/21) - cards consulted - rate controlled - eliquis on HOLD PLANS FOR PEG AND TRACH CODE Status - FULL , as per notes on H&P : " He would be ok with being on the ventilator if needed. When asked about code status, he says, "Just try for one round and then let me go." Lines : Left femrol line 04/13 removed 04/14 . PICC L arm 04/14 (Central Line Necessity Reviewed) Trotter: 04/13 OG: + Nutrition: TF - 04/20 - REglan ( KUB , WNL ) TOLERATES TF 04/21 - regaln to prn 04/27 Analgesia: Anxiety/ delirium VTE Prophylaxis: eliquis- ON HOLD Stress Ulcer Prophylaxis: PO Glycemic Control: Plans in collaboration with bedside consultants and IM MDs. Discussed with RN to reach out if any questions or concerns A total of 40 minutes of critical care time was devoted to this patient today, required to treat and/or prevent further deterioration of critical care condition ( as above) . NNAMDI KRUSE MD Apr 29, 2021 12:41
[2021-04-29] MEDS: MIDAZOLAM 2 MG/2 ML (VERSED) VIAL IVP PRN (17:32)
[2021-04-29] MEDS ORDERED: HYDROmorphone 2 MG/ML VIAL (DILAUDID) ONE (17:51)
[2021-04-29] MEDS ORDERED: HYDROmorphone 2 MG/ML VIAL (DILAUDID) IVP ONE (18:00)
--- NOTE | 2021-04-29 18:20 | Diagnostic Imaging Report ---
HISTORY: Hypoxia. COMPARISON: 04/26/2021. TECHNIQUE: Frontal view of the chest. FINDINGS: The endotracheal tube is in stable position below the clavicles and above the rose marie. The tip of the enteric tube projects over the stomach. The left PICC line tip projects over the low SVC. There are extensive airspace consolidations throughout the lungs bilaterally. Aeration overall appears similar to the prior exam. No pleural effusion or pneumothorax is seen. The cardiac silhouette is stable in size. IMPRESSION: 1. Extensive airspace consolidations throughout the lungs bilaterally, with stable aeration since the prior exam. 2. Stable tubes and line. Dictated by: Dictated on workstation # [id number]
[2021-04-29] MEDS: AtorvaSTATin TABLET 10 MG TABLET PO SCH (21:25)
[2021-04-29] MEDS: MIDAZOLAM DRIP PRE-MIX 100 ML IV SCH (21:27)
--- NOTE | 2021-04-29 22:04 | Progress Note - Surgery ---
Subjective Date Seen by a Provider: Apr 29, 2021 Time Seen by a Provider: 16:55 Subjective/Events-last exam Patient remains intubated and sedated. Unable to be extubated currently. Was requiring pressors, currently off pressors. Family wanting trach and peg. Objective Exam Vital Signs Date Time Temp Pulse Resp B/P (MAP) Pulse Ox O2 Delivery O2 Flow Rate FiO2 04/29/21 21:27 52 18 97/74 04/29/21 21:26 52 97/74 04/29/21 21:26 52 97/74 04/29/21 21:14 54 18 99 35 04/29/21 19:00 91 04/29/21 18:45 Mechanical Ventilator 35.00 04/29/21 18:31 98 19 96 35 04/29/21 18:00 38.4 115 23 119/86 (97) 95 Mechanical Ventilator 30.00 04/29/21 17:43 38.5 04/29/21 17:00 38.0 77 24 129/90 (103) 90 Mechanical Ventilator 30.00 04/29/21 16:00 91 Mechanical Ventilator 30 04/29/21 16:00 37.7 74 26 129/97 (108) 86 Mechanical Ventilator 30.00 04/29/21 15:24 77 22 94 30 04/29/21 15:00 37.5 71 17 115/90 (98) 100 Mechanical Ventilator 30.00 04/29/21 14:47 59 100/67 04/29/21 13:00 37.1 45 17 100/75 (83) 98 Mechanical Ventilator 30.00 04/29/21 12:50 58 04/29/21 12:00 95 Mechanical Ventilator 30 04/29/21 12:00 36.9 45 17 93/63 (73) 98 Mechanical Ventilator 30.00 04/29/21 11:00 36.9 40 30 106/69 (81) 99 Mechanical Ventilator 30.00 04/29/21 10:27 53 81/58 04/29/21 10:00 36.9 46 17 90/64 (73) 98 Mechanical Ventilator 30.00 04/29/21 09:00 37.0 46 19 108/77 (87) 98 Mechanical Ventilator 30.00 04/29/21 08:00 37.1 50 17 96/63 (74) 97 Mechanical Ventilator 30.00 04/29/21 08:00 95 Mechanical Ventilator 30 9/23/21 07:00 37.2 96 18 114/84 (94) 100 Mechanical Ventilator 30.00 04/29/21 06:55 59 18 93 30 04/29/21 06:29 51 04/29/21 06:00 37.4 56 18 86/65 (72) 98 Mechanical Ventilator 30.00 04/29/21 05:30 62 84/62 04/29/21 05:00 37.7 62 17 88/70 (76) 98 Mechanical Ventilator 30.00 04/29/21 04:00 97 Mechanical Ventilator 30 04/29/21 04:00 38.1 62 18 92/66 (75) 98 Mechanical Ventilator 30.00 04/29/21 03:02 80 18 99 30 04/29/21 03:00 38.6 75 18 101/73 (82) 99 Mechanical Ventilator 30.00 04/29/21 02:00 38.7 79 18 126/79 (95) 98 Mechanical Ventilator 30.00 04/29/21 01:46 Mechanical Ventilator 30.00 04/29/21 01:45 38.0 04/29/21 01:32 93 74/46 04/29/21 01:15 38.7 04/29/21 01:00 38.6 98 21 102/72 (82) 97 Mechanical Ventilator 50.00 04/29/21 01:00 103 04/29/21 00:49 80 103/46 04/29/21 00:00 38.0 96 23 105/79 (88) 92 Mechanical Ventilator 50.00 04/29/21 00:00 97 Mechanical Ventilator 30 04/28/21 23:15 Mechanical Ventilator 50.00 04/28/21 23:00 37.8 95 27 120/89 (99) 94 Mechanical Ventilator 30.00 04/28/21 22:45 87 18 95 50 04/28/21 22:00 37.9 93 26 134/96 (109) 96 Mechanical Ventilator 30.00 I & O 04/29/21 07:00 Intake Total 2190 ml Output Total 3600 ml Balance -1410 ml Capillary Refill : Less Than 3 Seconds General Appearance: WD/WN, Chronically ill, Other (Sedated and intubated) HEENT: PERRL/EOMI, Other (Intubated) Neck: Normal Inspection, Supple Respiratory: No Accessory Muscle Use, No Respiratory Distress Cardiovascular: No Edema, Normal Peripheral Pulses, Irregularly Irregular, Other (afib per monitor) Peripheral Pulses: 1+ Dorsalis Pedis (R), 1+ Left Dors-Pedis (L) (see free text), 1+ Radial Pulses (L) Gastrointestinal: soft; No distended Extremity: Normal Capillary Refill, No Pedal Edema, Swelling Neurologic/Psychiatric: No Alert; Other (sedated) Skin: Normal Color, Warm/Dry, Other (No breakdown on sacrum/coccyx per POLICE ACADEMY PROGRAM COORDINATOR report) Lymphatic: No Adenopathy Results Lab Laboratory Tests 04/29/21 03:55: White Blood Count 17.5H, Red Blood Count 4.09L, Hemoglobin 12.5L, Hematocrit 38L , Mean Corpuscular Volume 93, Mean Corpuscular Hemoglobin 31, Mean Corpuscular Hemoglobin Concent 33, Red Cell Distribution Width 14.2, Platelet Count 557H, Mean Platelet Volume 10.4, Immature Granulocyte % (Auto) 2, Neutrophils (%) (Auto) 88H, Lymphocytes (%) (Auto) 5L, Monocytes (%) (Auto) 5, Eosinophils (%) (Auto) 1, Basophils (%) (Auto) 1, Neutrophils # (Auto) 15.3H, Lymphocytes # (Au to) 0.9L, Monocytes # (Auto) 0.8, Eosinophils # (Auto) 0.1, Basophils # (Auto) 0.1, Immature Granulocyte # (Auto) 0.3H, Neutrophils % (Manual) 87, Lymphocytes % (Manual) 5, Monocytes % (Manual) 6, Eosinophils % (Manual) 1, Basophils % (Manual) 1, Blood Morphology Comment NORMAL, Blood Gas Puncture Site LFT RAD, Blood Gas Patient Temperature 38.1, Arterial Blood pH 7.46H, Arterial Blood Partial Pressure CO2 34L, Arterial Blood Partial Pressure O2 66L, Arterial Blood HCO3 23, Arterial Blood Total CO2 24.4, Arterial Blood Oxygen Saturation 93L, Arterial Blood Base Excess 0.3, Aldo Test POS, Blood Gas Ventilator Setting YES, Blood Gas Inspired Oxygen 30%, Sodium Level 139, Potassium Level 4.2, Chloride Level 106, Carbon Dioxide Level 24, Anion Gap 9, Blood Urea Nitrogen 15, Creatinine 0.65, Estimat Glomerular Filtration Rate 120, BUN/Creatinine Ratio 23, Glucose Level 95, Calcium Level 7.7L, Corrected Calcium 9.3, Phosphorus Level 3.2, Magnesium Level 1.9, Total Bilirubin 0.8, Aspartate Amino Transf (AST/SGOT) 52H, Alanine Aminotransferase (ALT/SGPT) 91H, Alkaline Phosphatase 201H, Total Protein 4.9L, Albumin 2.0L 04/29/21 11:24: Glucometer 104 04/29/21 15:02: Troponin I < 0.028 04/29/21 17:23: Glucometer 80 Microbiology 04/26/21 Blood Culture - Preliminary, Resulted No growth 04/13/21 Gram Stain - Final, Complete 04/13/21 Sputum Culture - Final, Complete Usual upper respiratory jack Assessment/Plan Assessment/Plan Assessment/Plan COVID-19 pneumonia Acute hypoxic respiratory failure Ventilator dependence Atrial fibrillation Status post bacterial pneumonia Current use anticoagulation Patient unable to be extubated family would like to have tracheostomy percutaneous endoscopic gastrostomy tube placed. Dr. Parisi to do Bronchoscopy Patient anticoagulation held for procedure. Hold tube feeds after midnight . We will plan on having trach and PEG performed on Monday if unable to be extubated at that time or unless family decides to change care plan. CARLOS BATES DO Apr 29, 2021 22:04
[2021-04-30] VITALS (33 sets, daily range): BP systolic 82–142; BP diastolic 44–666
[2021-04-30] MEDS: inSUlin ASPART (NovoLOG) 1 UNIT/0.01 ML (CHARGE PER UNIT) SQ SCH ×4 (00:53→20:05)
[2021-04-30] MEDS: MEROPENEM 1,000 MG in WATER (STERILE) FOR INJECTION 20 ML IV SCH ×3 (00:54→17:35)
[2021-04-30] MEDS: PHENYLEPHRINE DOUBLE STRENGTH 20MG/ 250 ML IV SCH ×4 (00:54→04:00)
[2021-04-30] MEDS: RT-ALBUTEROL HFA 8.5 GM INHALER IH SCH ×6 (03:04→22:46)
[2021-04-30] MEDS: CISATRACURIUM DRIP 250 ML IV SCH ×3 (03:57→20:04)
[2021-04-30 04:02] LABS: ABG BASE EXCESS -0.4 MMOL/L (-2.5-2.5); ABG OXYGEN SATURATION 93 % (94-100); ABG PCO2 39 MMHG (35-45); ABG PH 7.41 (7.37-7.43); ABG PO2 64 MMHG (79-93); ABG TCO2 24.9 MMOL/L (21.0-31.0)
[2021-04-30 04:03] LABS: BASOPHILS # (AUTO) 0.1 10^3/uL (0.0-0.1); BASOPHILS % (AUTO) 1 % (0-10); EOSINOPHILS # (AUTO) 0.2 10^3/uL (0.0-0.3); EOSINOPHILS % (AUTO) 1 % (0-10); HEMATOCRIT 38 % (40-54); HEMOGLOBIN 12.6 g/dL (13.3-17.7); LYMPHOCYTES # (AUTO) 1.1 10^3/uL (1.0-4.0); LYMPHOCYTES % (AUTO) 7 % (12-44); MEAN CORPUSCULAR HEMOGLOBIN 31 pg (25-34); MEAN CORPUSCULAR HGB CONC 33 g/dL (32-36); MEAN CORPUSCULAR VOLUME 94 fL (80-99); MONOCYTES # (AUTO) 0.8 10^3/uL (0.0-1.0); MONOCYTES % (AUTO) 5 % (0-12); NEUTROPHILS # (AUTO) 12.9 10^3/uL (1.8-7.8); NEUTROPHILS % (AUTO) 84 % (42-75); PLATELET COUNT 559 10^3/uL (130-400); WHITE BLOOD COUNT 15.3 10^3/uL (4.3-11.0)
[2021-04-30 04:04] LABS: ALLENS TEST POSITIVE; INSPIRED O2 35; VENTILATOR YES
[2021-04-30 04:32] LABS: POTASSIUM 4.1 MMOL/L (3.6-5.0)
[2021-04-30 04:33] LABS: CALCIUM 7.7 MG/DL (8.5-10.1)
[2021-04-30 04:36] LABS: BILIRUBIN,TOTAL 0.5 MG/DL (0.1-1.0)
[2021-04-30 04:38] LABS: CREATININE SERUM 0.62 MG/DL (0.60-1.30)
[2021-04-30] MEDS: MAGNESIUM 1 GM/100 ML IVPB 100 ML IV SCH (05:12)
[2021-04-30] MEDS: POTASSIUM CL 10MEQ/50ML IVPB 50 ML IV SCH (05:12)
[2021-04-30] MEDS: KCL 20 MEQ TAB (K-DUR) PO SCH (05:12)
[2021-04-30] MEDS: 1/2 NS IV SOLUTION 1,000 ML IV SCH (05:48)
[2021-04-30] MEDS: ANIDULAFUNGIN INJECTION 100 MG in NS (IVPB) 100 ML IV SCH (07:46)
[2021-04-30] MEDS: PANTOPRAZOLE 40 MG (PROTONIX) VIAL IV SCH (07:47)
[2021-04-30] MEDS ORDERED: VANCOMYCIN INJECTION 2,000 MG in NS IV 500 ML 500 ML IV NR (10:00)
--- NOTE | 2021-04-30 10:43 | Progress Note - Cardiology ---
Cardiology SOAP Progress Note Subjective: Intubated. Mech vent. Unresponsive Objective: I&O/Vital Signs 04/29/21 04/30/21 04/30/21 04/30/21 23:00 00:00 00:00 00:54 Temp 37.7 37.4 Pulse 51 47 47 Resp 18 18 B/P (MAP) 92/60 (71) 101/60 (74) 64/48 Pulse Ox 97 98 97 O2 Delivery Mechanical Ventilator Mechanical Ventilator Mechanical Ventilator O2 Flow Rate 35.00 35.00 FiO2 35 04/30/21 04/30/21 04/30/21 04/30/21 01:00 01:00 02:00 03:00 Temp 37.1 37.0 37.1 Pulse 40 39 56 39 Resp 18 18 18 B/P (MAP) 106/72 (83) 96/666 (478) 91/63 (72) Pulse Ox 98 97 98 O2 Delivery Mechanical Ventilator Mechanical Ventilator Mechanical Ventilator O2 Flow Rate 35.00 35.00 35.00 04/30/21 04/30/21 04/30/21 04/30/21 03:04 04:00 04:00 04:00 Temp 36.9 Pulse 45 41 53 Resp 19 B/P (MAP) 117/71 115/73 (87) Pulse Ox 97 97 99 O2 Delivery Mechanical Ventilator Mechanical Ventilator O2 Flow Rate 35.00 FiO2 35 35 04/30/21 04/30/21 04/30/21 04/30/21 05:00 05:20 06:00 07:00 Temp 36.9 37.0 Pulse 53 98 55 73 Resp 26 B/P (MAP) 136/95 (109) 112/86 (95) Pulse Ox 99 98 96 O2 Delivery Mechanical Ventilator Mechanical Ventilator O2 Flow Rate 35.00 35.00 04/30/21 04/30/21 04/30/21 04/30/21 07:00 07:16 08:00 08:04 Temp 37.1 37.3 Pulse 69 76 70 Resp 27 15 B/P (MAP) 122/92 (102) 115/89 (98) Pulse Ox 95 96 95 97 O2 Delivery Mechanical Ventilator Mechanical Ventilator Mechanical Ventilator O2 Flow Rate 35.00 35.00 FiO2 35 35 04/30/21 04/30/21 04/30/21 09:00 10:00 10:05 Temp 37.5 37.6 Pulse 78 107 115 Resp 27 26 24 B/P (MAP) 124/80 (95) 113/94 (100) Pulse Ox 97 98 100 O2 Delivery Mechanical Ventilator Mechanical Ventilator O2 Flow Rate 35.00 35.00 FiO2 35 04/30/21 00:00 Intake Total 1847 ml Output Total 1085 ml Balance 762 ml Constitutional: other (Intubated, on mech vent, unable to communicate; I did not physically examine the patient to reduce exposure to COVID-19) Results/Procedures: Labs Laboratory Tests 04/29/21 11:24: Glucometer 104 04/29/21 15:02: Troponin I < 0.028 04/29/21 17:23: Glucometer 80 04/30/21 00:52: Glucometer 92 04/30/21 03:40: White Blood Count 15.3H, Red Blood Count 4.05L, Hemoglobin 12.6L, Hematocrit 38L , Mean Corpuscular Volume 94, Mean Corpuscular Hemoglobin 31, Mean Corpuscular Hemoglobin Concent 33, Red Cell Distribution Width 14.3, Platelet Count 559H, Mean Platelet Volume 10.0, Immature Granulocyte % (Auto) 1, Neutrophils (%) (Auto) 84H, Lymphocytes (%) (Auto) 7L, Monocytes (%) (Auto) 5, Eosinophils (%) (Auto) 1, Basophils (%) (Auto) 1, Neutrophils # (Auto) 12.9H, Lymphocytes # (Auto) 1.1, Monocytes # (Auto) 0.8, Eosinophils # (Auto) 0.2, Basophils # (Auto) 0.1, Immature Granulocyte # (Auto) 0.2H, Blood Gas Puncture Site RIGHT RADIAL, Blood Gas Patient Temperature 37.0, Arterial Blood pH 7.41, Arterial Blood Partial Pressure CO2 39, Arterial Blood Partial Pressure O2 64L, Arterial Blood HCO3 24, Arterial Blood Total CO2 24.9, Arterial Blood Oxygen Saturation 93L, Arterial Blood Base Excess -0.4, Aldo Test POSITIVE, Blood Gas Ventilator S etting YES, Blood Gas Inspired Oxygen 35, Sodium Level 138, Potassium Level 4.1, Chloride Level 107, Carbon Dioxide Level 22, Anion Gap 9, Blood Urea Nitrogen 15, Creatinine 0.62, Estimat Glomerular Filtration Rate 127, BUN/Creatinine Ratio 24, Glucose Level 105, Calcium Level 7.7L, Corrected Calcium 9.3, Phosphorus Level 3.0, Magnesium Level 2.0, Total Bilirubin 0.5, Aspartate Amino Transf (AST/SGOT) 32, Alanine Aminotransferase (ALT/SGPT) 62H, Alkaline Phosphatase 185H, Total Protein 5.0L, Albumin 2.0L Microbiology 04/26/21 Blood Culture - Preliminary, Resulted No growth 04/13/21 Gram Stain - Final, Complete 04/13/21 Sputum Culture - Final, Complete Usual upper respiratory jack Laboratory Tests 04/29/21 03:55 04/30/21 03:40 A/P: Assessment: COVID-19 pneumonia progressing to resp failure and requiring mechanical ventilation A Fib of unknown duration (seen on admission on 04/11/21), pt is known to have intermittent bradycardia without any hemodynamic significance - OAC with Eliquis Plan: * Cardiac status is essentially unchanged * Hospitalist and ICU services are managing COVID-19 and pneumonia and resp failure * Ventricular rate from A Fib continues to remain controlled (chronically slow vent response) * Continue anticoag for stroke prophylaxis * Monitor labs RONNIE RAMIREZ MD FACP FAC CCDS Apr 30, 2021 10:43
--- NOTE | 2021-04-30 11:37 | Pulmonary Progress Note ---
VIRIDIANA YOUNG MED STUDENT 04/30/21 1137: Subjective Date Seen by a Provider: Apr 30, 2021 Time Seen by a Provider: 07:50 Subjective/Events-last exam Intubated at TV 500 PEEP 5 FiO2 35% RR 18. Per overnight RN, Saud dropped pressure in the absence of pressors so he has been on 50 of Phenylephrine. Sepsis Event Evaluation Height, Weight, BMI Height: '" Weight: lbs. oz. kg; 21.43 BMI Method: Exam Exam Patient acknowledged, consented, and participated in this virtual visit which was conducted using real time audio/video Vital Signs Date Time Temp Pulse Resp B/P (MAP) Pulse Ox O2 Delivery O2 Flow Rate FiO2 04/30/21 11:00 37.7 107 15 130/84 (99) 100 Mechanical Ventilator 35.00 04/30/21 10:05 115 24 100 35 04/30/21 10:00 37.6 107 26 113/94 (100) 98 Mechanical Ventilator 35.00 04/30/21 09:00 37.5 78 27 124/80 (95) 97 Mechanical Ventilator 35.00 04/30/21 08:04 97 Mechanical Ventilator 35 04/30/21 08:00 37.3 70 15 115/89 (98) 95 Mechanical Ventilator 35.00 04/30/21 07:16 76 27 96 35 04/30/21 07:00 37.1 69 27 122/92 (102) 95 Mechanical Ventilator 35.00 04/30/21 07:00 73 04/30/21 06:00 37.0 55 26 112/86 (95) 96 Mechanical Ventilator 35.00 04/30/21 05:20 98 21 98 04/30/21 05:00 36.9 53 21 136/95 (109) 99 Mechanical Ventilator 35.00 04/30/21 04:00 36.9 53 19 115/73 (87) 99 Mechanical Ventilator 35.00 04/30/21 04:00 41 117/71 04/30/21 04:00 97 Mechanical Ventilator 35 04/30/21 03:04 45 18 97 35 04/30/21 03:00 37.1 39 18 91/63 (72) 98 Mechanical Ventilator 35.00 04/30/21 02:00 37.0 56 18 96/666 (478) 97 Mechanical Ventilator 35.00 04/30/21 01:00 37.1 39 18 106/72 (83) 98 Mechanical Ventilator 35.00 04/30/21 01:00 40 04/30/21 00:54 47 64/48 04/30/21 00:00 97 Mechanical Ventilator 35 04/30/21 00:00 37.4 47 18 101/60 (74) 98 Mechanical Ventilator 35.00 04/29/21 23:00 37.7 51 18 92/60 (71) 97 Mechanical Ventilator 35.00 04/29/21 22:00 38.0 46 17 86/55 (65) 99 Mechanical Ventilator 35.00 04/29/21 21:27 52 18 97/74 04/29/21 21:26 52 97/74 04/29/21 21:26 52 97/74 04/29/21 21:14 54 18 99 35 04/29/21 21:00 38.4 46 17 97/74 (82) 99 Mechanical Ventilator 35.00 04/29/21 20:00 38.7 52 17 97/67 (77) 99 Mechanical Ventilator 35.00 04/29/21 20:00 97 Mechanical Ventilator 35 04/29/21 19:00 91 04/29/21 19:00 38.9 91 18 72/39 (50) 94 Mechanical Ventilator 35.00 04/29/21 18:45 Mechanical Ventilator 35.00 04/29/21 18:31 98 19 96 35 04/29/21 18:00 38.4 115 23 119/86 (97) 95 Mechanical Ventilator 30.00 04/29/21 17:43 38.5 04/29/21 17:00 38.0 77 24 129/90 (103) 90 Mechanical Ventilator 30.00 04/29/21 16:00 91 Mechanical Ventilator 30 04/29/21 16:00 37.7 74 26 129/97 (108) 86 Mechanical Ventilator 30.00 04/29/21 15:24 77 22 94 30 04/29/21 15:00 37.5 71 17 115/90 (98) 100 Mechanical Ventilator 30.00 04/29/21 14:47 59 100/67 04/29/21 13:00 37.1 45 17 100/75 (83) 98 Mechanical Ventilator 30.00 04/29/21 12:50 58 04/29/21 12:00 95 Mechanical Ventilator 30 04/29/21 12:00 36.9 45 17 93/63 (73) 98 Mechanical Ventilator 30.00 I & O 04/30/21 07:00 Intake Total 3936 ml Output Total 3160 ml Balance 776 ml Height & Weight Height: '" Weight: lbs. oz. kg; 21.43 BMI Method: General Appearance: WD/WN, Chronically ill, Other (Sedated and intubated) HEENT: Other (Intubated. Pupils equal and reactive. ) Neck: Normal Inspection, Supple Respiratory: No Accessory Muscle Use, No Respiratory Distress; No Crackles; Decreased Breath Sounds (slightly); No Wheezing Cardiovascular: Irregularly Irregular, Other (bilateral pedal edema and edema in the hands. Feet are cold to the touch. LE Pulses not palpable due to edema. Radial pulses intact) Capillary Refill: Less Than 3 Seconds Peripheral Pulses: 1+ Radial Pulses (L) Gastrointestinal: soft; No distended Extremity: Normal Capillary Refill, No Pedal Edema, Swelling Neurologic/Psychiatric: No Alert; Other (sedated, no purposeful movements) Skin: Normal Color, Warm/Dry; No Rash (no rash to chest, abdomen, thighs, neck, or face.) Lymphatic: No Adenopathy Results Lab Laboratory Tests 04/29/21 03:55 04/30/21 03:40 Assessment/Plan Assessment/Plan Covid19 pneumonia ARDS -intubated TV 500 PEEP 5 FiO2 35% RR 18 trach and peg planned today. Full code. -on precedex -midazolam at rate of 6, fentanyl at 100 mcg for sedation. Phenylephrine at 50 for pressure. -ABG indicates no changes necessary to respiratory treatment at this time -sputum was never swabbed. No MRSA swab on record. Will start Vancomycin Leukocytosis, improved 15.3 from 17.5 Transaminitis -no acute change DVT/PE prophylaxis held for tracheotomy NNAMDI KRUSE MD 04/30/21 1900: Supervisory-Addendum Brief Verification & Attestation Participated in pt care: history, MDM, physical Personally performed: history, MDM, supervision of care Care discussed with: Medical Student Procedures: n/a PLAN as above A medical student performed and documented this service. I reviewed all information documented by the medical student and made modifications to such information, when appropriate. Medical student performed patients physical exam. Medical decision making was done during tele-rounds with this medical student and a bedside RN . Plans in collaboration with bedside consultants and IM MDs. Discussed with RN to reach out if any questions or concerns A total of 31minutes of critical care time was devoted to this patient today, required to treat and/or prevent further deterioration of critical care condition ( as above) . VIRIDIANA YOUNG MED STUDENT Apr 30, 2021 11:37 NNAMDI KRUSE MD Apr 30, 2021 19:00
[2021-04-30] MEDS ORDERED: HYDROmorphone 2 MG/ML VIAL (DILAUDID) IVP ONE (11:45)
[2021-04-30] MEDS: fentaNYL DRIP PRE-MIX 250 ML IV SCH (11:46)
[2021-04-30] MEDS: PROPOFOL DRIP (ICU) 100 ML IV SCH (11:46)
--- NOTE | 2021-04-30 12:38 | Progress Note ---
Subjective Date Seen by a Provider: Apr 30, 2021 Time Seen by a Provider: 11:00 Subjective/Events-last exam Patient has stabilized PEG tube and trach to be placed Vancomycin and Eraxis maintained Meropenem maintained Check meds and labs Krupp will evaluate Objective Exam Last Set of Vital Signs Vital Signs Date Time Temp Pulse Resp B/P (MAP) Pulse Ox O2 Delivery O2 Flow Rate FiO2 04/30/21 12:00 38.0 110 29 113/85 (94) 90 Mechanical Ventilator 35.00 04/30/21 10:05 35 Capillary Refill : Less Than 3 Seconds I&O Intake and Output 04/30/21 00:00 Intake Total 2942 ml Output Total 2335 ml Balance 607 ml Intake Oral 0 ml IV Total 702 ml Tube Feeding 1440 ml Other 800 ml Output Urine Total 2335 ml General: Other (Sedated and intubated) Lungs: Other (Coarse breath sounds) Heart: Regular Rate Results Lab Laboratory Tests 04/29/21 15:02: Troponin I < 0.028 04/29/21 17:23: Glucometer 80 04/30/21 00:52: Glucometer 92 04/30/21 03:40: White Blood Count 15.3H, Red Blood Count 4.05L, Hemoglobin 12.6L, Hematocrit 38L , Mean Corpuscular Volume 94, Mean Corpuscular Hemoglobin 31, Mean Corpuscular Hemoglobin Concent 33, Red Cell Distribution Width 14.3, Platelet Count 559H, Mean Platelet Volume 10.0, Immature Granulocyte % (Auto) 1, Neutrophils (%) (Auto) 84H, Lymphocytes (%) (Auto) 7L, Monocytes (%) (Auto) 5, Eosinophils (%) (Auto) 1, Basophils (%) (Auto) 1, Neutrophils # (Auto) 12.9H, Lymphocytes # (Auto) 1.1, Monocytes # (Auto) 0.8, Eosinophils # (Auto) 0.2, Basophils # (Auto) 0.1, Immature Granulocyte # (Auto) 0.2H, Blood Gas Puncture Site RIGHT RADIAL, Blood Gas Patient Temperature 37.0, Arterial Blood pH 7.41, Arterial Blood Partial Pressure CO2 39, Arterial Blood Partial Pressure O2 64L, Arterial Blood HCO3 24, Arterial Blood Total CO2 24.9, Arterial Blood Oxygen Saturation 93L, Arterial Blood Base Excess -0.4, Aldo Test POSITIVE, Blood Gas Ventilator Setting YES, Blood Gas Inspired Oxygen 35, Sodium Level 138, Potassium Level 4.1, Chloride Level 107, Carbon Dioxide Level 22, Anion Gap 9, Blood Urea Nitrogen 15, Creatinine 0.62, Estimat Glomerular Filtration Rate 127, BUN/Creatinine Ratio 24, Glucose Level 105, Calcium Level 7.7L, Corrected Calcium 9.3, Phosphorus Level 3.0, Magnesium Level 2.0, Total Bilirubin 0.5, Aspartate Amino Transf (AST/SGOT) 32, Alanine Aminotransferase (ALT/SGPT) 62H, Alkaline Phosphatase 185H, Total Protein 5.0L, Albumin 2.0L 04/30/21 11:58: Glucometer 82 Microbiology 04/26/21 Blood Culture - Preliminary, Resulted No growth 04/13/21 Gram Stain - Final, Complete 04/13/21 Sputum Culture - Final, Complete Usual upper respiratory jack Assessment/Plan Assessment/Plan Assess & Plan/Chief Complaint Assessment: COVID-19 pneumonia Acute hypoxic respiratory failure Ventilator dependence Status post bacterial pneumonia Plan: Supportive care Ventilator management appreciated 04/25/2021: Spoke to Steven son trach and PEG may be needed and he agrees with plan Not weanable yet DC isolation 04/26/2021: Trach and PEG may be required Supportive care 04/27/2021: Supportive care Monitor closely 04/28/2021: Needs PEG and trach 04/29/21: Family not willing to consider DNR 04/30/2021: PEG and trach Krupp COTY SHIPMAN DO Apr 30, 2021 12:38
--- NOTE | 2021-04-30 15:25 | Progress Note-Post Operative ---
Post-Operative Progess Note Surgeon (s)/Accounts Receivable Executive (s) Surgeon KAROL ZELAYA DO Accounts Receivable Executive: none Pre-Operative Diagnosis Covid-19 Respiratory Failure, Malnutrition Post-Operative Diagnosis same Procedure & Operative Findings Date of Procedure 04/30/21 Procedure Performed/Findings Bronchoscopy EGD Anesthesia Type GET Estimated Blood Loss Estimated blood loss (mL): scant Specimens/Packing Specimens Removed none KAROL ZELAYA DO Apr 30, 2021 15:25
--- NOTE | 2021-04-30 15:32 | Diagnostic Imaging Report ---
INDICATION: Tracheostomy appliance check. COMPARISON: 04/29/2021. TECHNIQUE: Single radiograph of the chest dated 04/30/2021. FINDINGS: Interval removal of endotracheal tube and enteric catheter. Interval placement of a tracheostomy appliance with the distal tip overlying the tracheal air column just inferior to the level of the clavicular heads. Left-sided PICC line is stable. The cardiac silhouette is within normal limits in size. Extensive bilateral pulmonary opacities are again identified, slightly improved within the left lung. No large-volume pleural effusion. No pneumothorax. Osseous structures are stable. IMPRESSION: 1. Interval removal of endotracheal tube and enteric catheter with placement of a tracheostomy appliance as above. 2. Extensive bilateral pulmonary opacities, slightly improved within the left lung. Dictated by: Dictated on workstation # [id number]
--- NOTE | 2021-04-30 16:22 | Progress Note-Post Operative ---
Post-Operative Progess Note Surgeon (s)/Brake Reliner (s) Surgeon CARLOS BATES DO Brake Reliner: none Pre-Operative Diagnosis Covid-19 Respiratory Failure, Malnutrition Post-Operative Diagnosis same Procedure & Operative Findings Date of Procedure 04/30/21 Procedure Performed/Findings percutaneous tracheostomy tube placement percutaneous gastrostomy tube placement Anesthesia Type general Estimated Blood Loss Estimated blood loss (mL): minimal Specimens/Packing Specimens Removed na CARLOS BATES DO Apr 30, 2021 16:22
[2021-04-30] MEDS: VANCOMYCIN INJECTION 1,500 MG in NS IV 500 ML 500 ML IV SCH (22:55)
[2021-04-30] MEDS: AtorvaSTATin TABLET 10 MG TABLET PO SCH ×2 (22:55→23:02)
[2021-05-01] VITALS (30 sets, daily range): BP systolic 76–147; BP diastolic 52–98
[2021-05-01] MEDS: inSUlin ASPART (NovoLOG) 1 UNIT/0.01 ML (CHARGE PER UNIT) SQ SCH ×4 (00:09→19:35)
[2021-05-01] MEDS: fentaNYL DRIP PRE-MIX 250 ML IV SCH ×3 (00:09→20:47)
[2021-05-01] MEDS: PHENYLEPHRINE DOUBLE STRENGTH 20MG/ 250 ML IV SCH ×10 (00:09→22:25)
[2021-05-01] MEDS: CISATRACURIUM DRIP 250 ML IV SCH ×5 (00:09→23:51)
[2021-05-01] MEDS: MEROPENEM 1,000 MG in WATER (STERILE) FOR INJECTION 20 ML IV SCH ×3 (00:42→17:44)
[2021-05-01] MEDS: PROPOFOL DRIP (ICU) 100 ML IV SCH ×2 (00:46→11:27)
[2021-05-01] MEDS: RT-ALBUTEROL HFA 8.5 GM INHALER IH SCH ×2 (02:27→07:21)
[2021-05-01] MEDS: 1/2 NS IV SOLUTION 1,000 ML IV SCH (04:11)
[2021-05-01 04:26] LABS: ABG OXYGEN SATURATION 87 % (94-100); ABG PCO2 32 MMHG (35-45); ABG PH 7.45 (7.37-7.43); ABG PO2 47 MMHG (79-93); ABG TCO2 23.7 MMOL/L (21.0-31.0); ALLENS TEST POSITIVE; INSPIRED O2 35; PATIENT TEMP 37.7; VENTILATOR YES
[2021-05-01 04:30] LABS: BASOPHILS # (AUTO) 0.1 10^3/uL (0.0-0.1); BASOPHILS % (AUTO) 1 % (0-10); EOSINOPHILS # (AUTO) 0.1 10^3/uL (0.0-0.3); EOSINOPHILS % (AUTO) 1 % (0-10); HEMATOCRIT 39 % (40-54); LYMPHOCYTES # (AUTO) 0.6 10^3/uL (1.0-4.0); LYMPHOCYTES % (AUTO) 4 % (12-44); MEAN CORPUSCULAR HEMOGLOBIN 31 pg (25-34); MEAN CORPUSCULAR HGB CONC 33 g/dL (32-36); MEAN CORPUSCULAR VOLUME 94 fL (80-99); MEAN PLATELET VOLUME 9.5 fL (9.0-12.2); MONOCYTES # (AUTO) 0.4 10^3/uL (0.0-1.0); MONOCYTES % (AUTO) 3 % (0-12); NEUTROPHILS # (AUTO) 13.7 10^3/uL (1.8-7.8); NEUTROPHILS % (AUTO) 91 % (42-75); PLATELET COUNT 527 10^3/uL (130-400)
[2021-05-01 04:45] LABS: POTASSIUM 4.1 MMOL/L (3.6-5.0)
[2021-05-01 04:48] LABS: TOTAL PROTEIN 5.2 GM/DL (6.4-8.2)
[2021-05-01 04:50] LABS: BILIRUBIN,TOTAL 0.6 MG/DL (0.1-1.0)
[2021-05-01 04:51] LABS: PHOSPHORUS 2.6 MG/DL (2.3-4.7)
[2021-05-01 04:52] LABS: CREATININE SERUM 0.62 MG/DL (0.60-1.30)
[2021-05-01 04:54] LABS: MAGNESIUM 1.9 MG/DL (1.6-2.4)
[2021-05-01] MEDS ORDERED: NS (IVPB) 250 ML ONE (05:55)
[2021-05-01] MEDS ORDERED: PHENYLEPHRINE INJ 10 MG/ML (FOR DRIP KITS ONLY) ONE (05:55)
[2021-05-01] MEDS: MAGNESIUM 1 GM/100 ML IVPB 100 ML IV SCH (06:04)
[2021-05-01] MEDS: POTASSIUM CL 10MEQ/50ML IVPB 50 ML IV SCH (06:04)
[2021-05-01] MEDS: KCL 20 MEQ TAB (K-DUR) PO SCH (06:04)
[2021-05-01] MEDS: PHENYLEPHRINE INJECTION 10 MG in NS (IVPB) 250 ML IV SCH ×2 (06:15→06:18)
[2021-05-01] MEDS: MIDAZOLAM DRIP PRE-MIX 100 ML IV SCH (06:18)
--- NOTE | 2021-05-01 07:17 | OPERATIVE REPORT ---
DATE OF SERVICE: 04/30/2021 PREOPERATIVE DIAGNOSES: COVID-19 respiratory failure, malnutrition. POSTOPERATIVE DIAGNOSES: COVID-19 respiratory failure, malnutrition. PROCEDURE: Percutaneous tracheostomy tube placement and percutaneous gastrostomy tube placement. SURGEON: Carlos Molina DO ANESTHESIA: General. ESTIMATED BLOOD LOSS: Minimal. COMPLICATIONS: None. INDICATIONS: The patient is a 75-year-old male with COVID-19 respiratory failure and malnutrition. The patient's family wishes to have tracheostomy and gastrostomy tube placed. He understands risks and benefits and wished to proceed. Dr. Parisi performed bronchoscopy and EGD. See his dictations. DESCRIPTION OF PROCEDURE: The patient was taken to the operating suite, was prepped and draped in sterile fashion on the neck. Dr. Parisi performed bronchoscopy. Two fingerbreadths above the sternoclavicular notch, the trachea was palpated. Angiocath needle was inserted into trachea. The needle was removed. The catheter was visualized by bronchoscopy. The wire was inserted through the sheath and the sheath was then removed. A #11 blade scalpel was used to make a vertical incision for the tracheotomy tube to be advanced through. Serial dilations were then advanced over the guidewire under visualization of the bronchoscopy. Once serially dilated, a #8 Shiley was able to be advanced into the trachea. The balloon was inflated. The cuff was inflated. The tracheostomy tube bolster was then secured using 2-0 Prolene in 4 quadrants. The area was then washed and dried. The patient had good end tidal volumes. The bronchoscope was inserted through the tracheotomy tube assuring good position above the rose marie. At this time, the gastrostomy tube was then performed. Dr. Parisi did the EGD portion. The stomach was insufflated and the light was able to be visualized through the abdominal wall and was ballottable. The left upper quadrant was then prepped and draped in sterile fashion. Local anesthetic was infiltrated into the abdominal wall into the subcutaneous tissue until the needle was able to be suctioned into the stomach and visualized. This was then withdrawn while injecting local anesthetic. A #11 blade scalpel was used to make a small skin incision. Angiocath needle was inserted through the abdominal wall into the stomach, which was then snared and the needle was removed. The wire was inserted and brought out through the mouth by Dr. Parisi. The gastrostomy tube was then secured to the wire and then I withdrew the wire pulling out the gastrostomy tube from the mouth all the way down to the stomach where it was in good position and then secured in the usual fashion. The area was washed and dried, and sterile bandage was applied. The patient tolerated procedure well without any complications. Chest x-ray pending. Job ID: [id number] DocumentID: [id number] Dictated Date: 04/30/2021 16:27:52 Rn Team Leader Date: 05/01/2021 01:36:04 Dictated By: CARLOS MOLINA DO
[2021-05-01] MEDS ORDERED: RT-ALBUTEROL SULF 2.5 MG/3 ML PRE-MIX VIAL INH PRN (07:30)
--- NOTE | 2021-05-01 07:52 | Progress Note ---
Subjective Date Seen by a Provider: May 01, 2021 Time Seen by a Provider: 11:00 Subjective/Events-last exam Patient underwent PEG and trach placement yesterday Patient appears to be more at ease Augie-Synephrine still maintained to keep blood pressure up [place] consult for placement Objective Exam Last Set of Vital Signs Vital Signs Date Time Temp Pulse Resp B/P (MAP) Pulse Ox O2 Delivery O2 Flow Rate FiO2 05/01/21 07:23 78 20 93 25 05/01/21 07:00 37.7 91/64 (73) Mechanical Ventilator 25.00 Capillary Refill : Less Than 3 Seconds I&O Intake and Output 04/30/21 23:59 Intake Total 2724 ml Output Total 2850 ml Balance -126 ml Intake Oral 0 ml IV Total 2504 ml Tube Feeding 120 ml Other 100 ml Output Urine Total 2850 ml General: Other (Sedated and intubated) Lungs: Other (Coarse breath sounds) Heart: Regular Rate Results Lab Laboratory Tests 04/30/21 11:58: Glucometer 82 04/30/21 15:51: Glucometer 75 05/01/21 00:01: Glucometer 76 05/01/21 04:10: Blood Gas Puncture Site RIGHT RADIAL, Blood Gas Patient Temperature 37.7, Arterial Blood pH 7.45H, Arterial Blood Partial Pressure CO2 32L, Arterial Blood Partial Pressure O2 47L, Arterial Blood HCO3 23, Arterial Blood Total CO2 23.7, Arterial Blood Oxygen Saturation 87L, Arterial Blood Base Excess -1.0, Aldo Test POSITIVE, Blood Gas Ventilator Setting YES, Blood Gas Inspired Oxygen 35 05/01/21 04:20: White Blood Count 15.0H, Red Blood Count 4.17L, Hemoglobin 13.0L, Hematocrit 39L , Mean Corpuscular Volume 94, Mean Corpuscular Hemoglobin 31, Mean Corpuscular Hemoglobin Concent 33, Red Cell Distribution Width 14.4, Platelet Count 527H, Mean Platelet Volume 9.5, Immature Granulocyte % (Auto) 1, Neutrophils (%) (Auto) 91H, Lymphocytes (%) (Auto) 4L, Monocytes (%) (Auto) 3, Eosinophils (%) (Auto) 1, Basophils (%) (Auto) 1, Neutrophils # (Auto) 13.7H, Lymphocytes # (Auto) 0.6L, Monocytes # (Auto) 0.4, Eosinophils # (Auto) 0.1, Basophils # (Auto) 0.1, Immature Granulocyte # (Auto) 0.1, Sodium Level 139, Potassium Level 4.1, Chloride Level 108H, Carbon Dioxide Level 20L, Anion Gap 11, Blood Urea Nitrogen 15, Creatinine 0.62, Estimat Glomerular Filtration Rate 127, BUN/Creatinine Ratio 24, Glucose Level 75, Calcium Level 8.0L, Corrected Calcium 9.6, Phosphorus Level 2.6, Magnesium Level 1.9, Total Bilirubin 0.6, Aspartate Amino Transf (AST/SGOT) 27, Alanine Aminotransferase (ALT/SGPT) 46, Alkaline Phosphatase 171H, Total Protein 5.2L, Albumin 2.0L Microbiology 04/30/21 MRSA Screen - Final, Complete MRSA not isolated 04/26/21 Blood Culture - Preliminary, Resulted No growth Assessment/Plan Assessment/Plan Assess & Plan/Chief Complaint Assessment: COVID-19 pneumonia Acute hypoxic respiratory failure Ventilator dependence Status post bacterial pneumonia Plan: Supportive care Ventilator management appreciated 04/25/2021: Spoke to Steven son trach and PEG may be needed and he agrees with plan Not weanable yet DC isolation 04/26/2021: Trach and PEG may be required Supportive care 04/27/2021: Supportive care Monitor closely 04/28/2021: Needs PEG and trach 04/29/21: Family not willing to consider DNR 04/30/2021: PEG and trach [place] 05/01/2021: No significant change PEG and trach maintained COTY SHIPMAN DO May 01, 2021 07:52
[2021-05-01] MEDS: PANTOPRAZOLE 40 MG (PROTONIX) VIAL IV SCH (08:09)
[2021-05-01] MEDS: ANIDULAFUNGIN INJECTION 100 MG in NS (IVPB) 100 ML IV SCH (09:07)
--- NOTE | 2021-05-01 09:58 | Tele-ICU Progress Note ---
Subjective Date Seen by a Provider: May 01, 2021 Time Seen by a Provider: 08:47 Subjective/Events-last exam This virtual visit was conducted using real time audio/video. Thank you for asking us to see this patient for respiratory insufficiency and distress due to Covid pna. HPC: Recent events: Trach. 04/30/21. PE: VSS O2 sat 96% on 25%/+5 HEENT: No obvious masses, adenopathy or JVD. Chest: clear to auscultation. CV: RRR S1 S2 No murmur or added sounds. Abd: Non-tender. Bowel sounds Y. : Unremarkable. [place]rotter Y. 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 Extremities: No edema. Capillary refill < 3 seconds. Skin: unremarkable. Results: Elevated WCC 15K. Decreased Hb 13. CXR w B infilts. A/P: Respiratory insufficiency/distress: consider SBT soon. Available chart/ vitals / labs /images reviewed. Video assessment done using teleICU camera, rest of exam as per RN. Critical Care: critically ill patient. Cont Alb., Propofol, statin, Dex., Abx., Anti-fungal. Discussed with ANGEL Otto. Asked RN to reach out to eICU if any questions or concerns later. Time spent with patient/family/coordination of care with other health professionals (mins): 23 Sepsis Event Evaluation Height, Weight, BMI Height: '" Weight: lbs. oz. kg; 21.43 BMI Method: Exam Exam Patient acknowledged, consented, and participated in this virtual visit which was conducted using real time audio/video Vital Signs Date Time Temp Pulse Resp B/P (MAP) Pulse Ox O2 Delivery O2 Flow Rate FiO2 05/01/21 09:00 37.5 75 115/76 (89) 95 Mechanical Ventilator 25.00 05/01/21 08:19 93 Mechanical Ventilator 25 05/01/21 08:10 76 98/70 05/01/21 08:00 37.7 76 98/70 (79) 92 05/01/21 07:23 78 20 93 25 05/01/21 07:00 76 05/01/21 07:00 37.7 90 91/64 (73) 92 Mechanical Ventilator 25.00 05/01/21 06:42 Mechanical Ventilator 25.00 05/01/21 06:18 87 107/73 05/01/21 06:18 73 21 107/73 05/01/21 06:15 74 104/73 05/01/21 06:00 37.7 90 22 99/71 (80) 90 Mechanical Ventilator 21.00 05/01/21 05:00 37.7 62 22 95/68 (77) 97 Mechanical Ventilator 21.00 05/01/21 04:00 98 Mechanical Ventilator 21 05/01/21 04:00 37.7 73 22 105/74 (84) 95 Mechanical Ventilator 25.00 05/01/21 03:00 37.8 67 22 112/78 (89) 93 Mechanical Ventilator 25.00 05/01/21 02:27 64 19 96 25 05/01/21 02:00 Mechanical Ventilator 25.00 05/01/21 02:00 38.0 85 22 78/52 (61) 98 Mechanical Ventilator 25.00 05/01/21 01:00 85 05/01/21 01:00 37.9 85 22 98/61 (73) 97 Mechanical Ventilator 50.00 05/01/21 00:46 111 101/72 05/01/21 00:27 Mechanical Ventilator 50.00 05/01/21 00:09 111 119/72 05/01/21 00:00 98 Mechanical Ventilator 50 05/01/21 00:00 37.4 106 22 147/78 (101) 97 Mechanical Ventilator 21.00 04/30/21 23:00 37.3 73 18 112/83 (93) 92 Mechanical Ventilator 21.00 04/30/21 22:46 74 19 94 21 04/30/21 22:00 37.3 71 23 85/59 (68) 96 Mechanical Ventilator 25.00 04/30/21 21:00 37.4 75 23 95/68 (77) 97 Mechanical Ventilator 25.00 04/30/21 20:15 37.4 04/30/21 20:00 37.4 79 23 88/69 (75) 96 Mechanical Ventilator 25.00 04/30/21 20:00 97 Mechanical Ventilator 35 04/30/21 19:15 77 19 98 25 04/30/21 19:00 99 04/30/21 19:00 37.5 99 23 100/57 (71) 98 Mechanical Ventilator 25.00 04/30/21 18:00 37.5 84 20 85/46 (59) 99 Mechanical Ventilator 35.00 04/30/21 17:00 37.3 93 23 86/68 (74) 100 Mechanical Ventilator 35.00 04/30/21 16:00 97 Mechanical Ventilator 35 04/30/21 16:00 37.3 93 23 100/61 (74) 100 Mechanical Ventilator 35.00 04/30/21 15:52 101 24 95 35 04/30/21 15:45 37.0 84 19 93/44 (60) 99 Mechanical Ventilator 35.00 04/30/21 15:30 37.1 104 87/57 (67) 93 Mechanical Ventilator 35.00 04/30/21 15:15 36.9 107 82/54 (63) 88 Mechanical Ventilator 35.00 04/30/21 15:10 116 95/60 (78) 94 Mechanical Ventilator 35.00 04/30/21 15:08 131 82/52 (60) 99 Mechanical Ventilator 35.00 04/30/21 13:00 38.2 105 21 96/64 (75) 97 Mechanical Ventilator 35.00 04/30/21 12:50 108 04/30/21 12:00 97 Mechanical Ventilator 35 04/30/21 12:00 38.0 110 29 113/85 (94) 90 Mechanical Ventilator 35.00 04/30/21 11:46 107 130/84 04/30/21 11:00 37.7 107 15 130/84 (99) 100 Mechanical Ventilator 35.00 04/30/21 10:05 115 24 100 35 04/30/21 10:00 37.6 107 26 113/94 (100) 98 Mechanical Ventilator 35.00 I & O 05/01/21 07:00 Intake Total 3720 ml Output Total 1725 ml Balance 1995 ml Height & Weight Height: '" Weight: lbs. oz. kg; 21.43 BMI Method: General Appearance: WD/WN, Chronically ill, Other (Sedated and intubated) HEENT: Other (Intubated. Pupils equal and reactive. ) Neck: Normal Inspection, Supple Respiratory: No Accessory Muscle Use, No Respiratory Distress; No Crackles; Decreased Breath Sounds (slightly); No Wheezing Cardiovascular: Irregularly Irregular, Other (bilateral pedal edema and edema in the hands. Feet are cold to the touch. LE Pulses not palpable due to edema. Radial pulses intact) Capillary Refill: Less Than 3 Seconds Peripheral Pulses: 1+ Dorsalis Pedis (R), 1+ Left Dors-Pedis (L), 1+ Radial Pulses (L) Gastrointestinal: soft; No distended Extremity: Normal Capillary Refill, No Pedal Edema, Swelling Neurologic/Psychiatric: No Alert; Other (sedated, no purposeful movements) Skin: Normal Color, Warm/Dry; No Rash (no rash to chest, abdomen, thighs, neck, or face.) Lymphatic: No Adenopathy Results Lab Laboratory Tests 04/30/21 03:40 05/01/21 04:20 Assessment/Plan Assessment/Plan See free text Critical Care: Ventilator Management CARL CABRALES MD May 01, 2021 09:58
[2021-05-01] MEDS: VANCOMYCIN INJECTION 1,500 MG in NS IV 500 ML 500 ML IV SCH ×2 (10:30→22:24)
[2021-05-01] MEDS: RT-ALBUTEROL SULF 2.5 MG/3 ML PRE-MIX VIAL INH SCH ×4 (10:58→22:28)
[2021-05-01] MEDS ORDERED: DEXTROSE 50% 50 ML (IMS) SYR IV ONE (11:15)
--- NOTE | 2021-05-01 11:35 | Cardiology Progress Note ---
Progress Note-Cardiology Events since last exam Date Seen by Provider: May 01, 2021 Time Seen by Provider: 11:29 Events since last exam We are following him due to atrial fibrillation and bradycardia. I did not see the patient due to his Covid status. He remains intubated and sedated. His apixaban was held so that he could undergo a PEG and tracheostomy which have now been completed. I did speak to the patient's attending physician of the day as well as his nurse. There have been no acute cardiac issues in the last 24 hours. Certain portions of this document may have been dictated utilizing voice re cognition technology. Inherent to this technology, typographical and grammatical errors may exist. As much as I am diligent to identify and correct these mistakes, some errors may remain in the document. Vitals Last set of Vitals Signs Vital Signs 05/01/21 05/01/21 10:58 11:00 Temp 37.1 Pulse 63 Resp 21 B/P (MAP) 127/98 (108) Pulse Ox 94 O2 Delivery Mechanical Ventilator O2 Flow Rate 25.00 FiO2 40 Labs Labs Laboratory Tests 05/01/21 04:20 Exam Vital Signs Vital Signs Date Time Temp Pulse Resp B/P (MAP) Pulse Ox O2 Delivery O2 Flow Rate FiO2 05/01/21 11:00 37.1 63 127/98 (108) 94 Mechanical Ventilator 25.00 05/01/21 10:58 21 40 Physical Exam I did not examine the patient due to his Covid status. Labs Laboratory Tests Test 04/30/21 11:58 04/30/21 15:51 05/01/21 00:01 05/01/21 04:10 Range/Units Glucometer 82 75 76 70-110 MG/DL Blood Gas Puncture Site RIGHT RADIAL Blood Gas Patient Temperature 37.7 Arterial Blood pH 7.45 H 7.37-7.43 Arterial Blood Partial Pressure CO2 32 L 35-45 MMHG Arterial Blood Partial Pressure O2 47 L 79-93 MMHG Arterial Blood HCO3 23 23-27 MMOL/L Arterial Blood Total CO2 23.7 21.0-31.0 MMOL/L Arterial Blood Oxygen Saturation 87 L 94-100 % Arterial Blood Base Excess -1.0 -2.5-2.5 MMOL/L Aldo Test POSITIVE Blood Gas Ventilator Setting YES Blood Gas Inspired Oxygen 35 Test 05/01/21 04:20 9/25/21 10:59 Range/Units White Blood Count 15.0 H 4.3-11.0 10^3/uL Red Blood Count 4.17 L 4.30-5.52 10^6/uL Hemoglobin 13.0 L 13.3-17.7 g/dL Hematocrit 39 L 40-54 % Mean Corpuscular Volume 94 80-99 fL Mean Corpuscular Hemoglobin 31 25-34 pg Mean Corpuscular Hemoglobin Concent 33 32-36 g/dL Red Cell Distribution Width 14.4 10.0-14.5 % Platelet Count 527 H 130-400 10^3/uL Mean Platelet Volume 9.5 9.0-12.2 fL Immature Granulocyte % (Auto) 1 % Neutrophils (%) (Auto) 91 H 42-75 % Lymphocytes (%) (Auto) 4 L 12-44 % Monocytes (%) (Auto) 3 0-12 % Eosinophils (%) (Auto) 1 0-10 % Basophils (%) (Auto) 1 0-10 % Neutrophils # (Auto) 13.7 H 1.8-7.8 10^3/uL Lymphocytes # (Auto) 0.6 L 1.0-4.0 10^3/uL Monocytes # (Auto) 0.4 0.0-1.0 10^3/uL Eosinophils # (Auto) 0.1 0.0-0.3 10^3/uL Basophils # (Auto) 0.1 0.0-0.1 10^3/uL Immature Granulocyte # (Auto) 0.1 0.0-0.1 10^3/uL Sodium Level 139 135-145 MMOL/L Potassium Level 4.1 3.6-5.0 MMOL/L Chloride Level 108 H 98-107 MMOL/L Carbon Dioxide Level 20 L 21-32 MMOL/L Anion Gap 11 5-14 MMOL/L Blood Urea Nitrogen 15 7-18 MG/DL Creatinine 0.62 0.60-1.30 MG/DL Estimat Glomerular Filtration Rate 127 BUN/Creatinine Ratio 24 Glucose Level 75 70-105 MG/DL Calcium Level 8.0 L 8.5-10.1 MG/DL Corrected Calcium 9.6 8.5-10.1 MG/DL Phosphorus Level 2.6 2.3-4.7 MG/DL Magnesium Level 1.9 1.6-2.4 MG/DL Total Bilirubin 0.6 0.1-1.0 MG/DL Aspartate Amino Transf (AST/SGOT) 27 5-34 U/L Alanine Aminotransferase (ALT/SGPT) 46 0-55 U/L Alkaline Phosphatase 171 H 40-136 U/L Total Protein 5.2 L 6.4-8.2 GM/DL Albumin 2.0 L 3.2-4.5 GM/DL Glucometer 65 L 70-110 MG/DL Diagnosis/Problems Diagnosis/Problems (1) Persistent atrial fibrillation Assessment & Plan: He remains in atrial fibrillation. Exact duration unknown. His apixaban was held for surgical procedures which have now been completed. I will resume the apixaban. His heart rates are controlled on no AV shimon bl ocking agents. If he recovers from the Covid infection, he will eventually need some additional noninvasive cardiac testing. (2) Bradycardia Assessment & Plan: As above, he has well-controlled heart rates despite being in atrial fibrillation. This is suggestive of some degree of underlying AV shimon dysfunction. We have been seeing this with Covid. There are no indications for temporary or permanent pacemaker at this point in time. (3) Mixed hyperlipidemia Assessment & Plan: Continue home dose of atorvastatin. (4) HAYDE (acute kidney injury) Status: Acute Assessment & Plan: He had acute kidney injury at the time of admission. This has improved. There is no indication to adjust the dose of apixaban. (5) Acute respiratory failure due to COVID-19 Status: Acute Assessment & Plan: This is being managed by the hospitalist. As above, he now has a tracheostomy and PEG in place. MARTÍNEZ LEMON JR, MD May 01, 2021 11:35
--- NOTE | 2021-05-01 12:37 | Anesthesia-General Post-Op ---
General Patient Condition Mental Status/LOC: Same as Preop Cardiovascular: Satisfactory Nausea/Vomiting: Absent Respiratory: Satisfactory Pain: Controlled Complications: Absent Post Op Complications Complications None Follow Up Care/Instructions Patient Instructions None needed. Anesthesia/Patient Condition Patient Condition Patient is doing well, no complaints, stable vital signs, no apparent adverse anesthesia problems. No complications reported per nursing. LUC TINOCO CRNA May 01, 2021 12:37
[2021-05-01] MEDS ORDERED: NS IV 500 ML 500 ML ONE (20:21)
[2021-05-01] MEDS: APIXABAN 5 MG (ELIQUIS) TABLET PO SCH (20:47)
[2021-05-01] MEDS: AtorvaSTATin TABLET 10 MG TABLET PO SCH (20:47)
[2021-05-02] VITALS (30 sets, daily range): BP systolic 81–136; BP diastolic 49–102
[2021-05-02] MEDS: 1/2 NS IV SOLUTION 1,000 ML IV SCH ×2 (00:01→18:19)
[2021-05-02] MEDS: inSUlin ASPART (NovoLOG) 1 UNIT/0.01 ML (CHARGE PER UNIT) SQ SCH ×4 (00:33→18:18)
[2021-05-02] MEDS: MEROPENEM 1,000 MG in WATER (STERILE) FOR INJECTION 20 ML IV SCH ×3 (00:37→16:38)
[2021-05-02] MEDS: PROPOFOL DRIP (ICU) 100 ML IV SCH ×2 (01:11→06:13)
[2021-05-02] MEDS: RT-ALBUTEROL SULF 2.5 MG/3 ML PRE-MIX VIAL INH SCH ×6 (02:23→21:55)
[2021-05-02 05:08] LABS: ABG BASE EXCESS -1.8 MMOL/L (-2.5-2.5); ABG OXYGEN SATURATION 96 % (94-100); ABG PCO2 40 MMHG (35-45); ABG PH 7.37 (7.37-7.43); ABG PO2 81 MMHG (79-93); ABG TCO2 23.7 MMOL/L (21.0-31.0)
[2021-05-02 05:09] LABS: ALLENS TEST POSITIVE
[2021-05-02 05:10] LABS: INSPIRED O2 25; PATIENT TEMP 37.8; VENTILATOR YES
[2021-05-02 05:22] LABS: BASOPHILS # (AUTO) 0.1 10^3/uL (0.0-0.1); BASOPHILS % (AUTO) 1 % (0-10); EOSINOPHILS # (AUTO) 0.1 10^3/uL (0.0-0.3); EOSINOPHILS % (AUTO) 2 % (0-10); HEMATOCRIT 39 % (40-54); HEMOGLOBIN 12.6 g/dL (13.3-17.7); LYMPHOCYTES # (AUTO) 0.6 10^3/uL (1.0-4.0); LYMPHOCYTES % (AUTO) 7 % (12-44); MEAN CORPUSCULAR HEMOGLOBIN 30 pg (25-34); MEAN CORPUSCULAR HGB CONC 32 g/dL (32-36); MEAN CORPUSCULAR VOLUME 94 fL (80-99); MEAN PLATELET VOLUME 9.3 fL (9.0-12.2); MONOCYTES # (AUTO) 0.4 10^3/uL (0.0-1.0); MONOCYTES % (AUTO) 5 % (0-12); NEUTROPHILS # (AUTO) 8.3 10^3/uL (1.8-7.8); NEUTROPHILS % (AUTO) 86 % (42-75); PLATELET COUNT 443 10^3/uL (130-400); WHITE BLOOD COUNT 9.6 10^3/uL (4.3-11.0)
[2021-05-02 05:42] LABS: ALBUMIN 1.8 GM/DL (3.2-4.5); POTASSIUM 3.9 MMOL/L (3.6-5.0)
[2021-05-02 05:43] LABS: CALCIUM 7.6 MG/DL (8.5-10.1)
[2021-05-02 05:44] LABS: TOTAL PROTEIN 4.8 GM/DL (6.4-8.2)
[2021-05-02 05:46] LABS: BILIRUBIN,TOTAL 0.5 MG/DL (0.1-1.0)
[2021-05-02 05:48] LABS: CREATININE SERUM 0.57 MG/DL (0.60-1.30)
[2021-05-02 05:51] LABS: MAGNESIUM 1.7 MG/DL (1.6-2.4)
[2021-05-02] MEDS ORDERED: MAGNESIUM 1 GM/100 ML IVPB 200 ML IV ONE (06:00)
[2021-05-02] MEDS: POTASSIUM CL 10MEQ/50ML IVPB 50 ML IV SCH (06:09)
[2021-05-02] MEDS: KCL 20 MEQ TAB (K-DUR) PO SCH (06:09)
[2021-05-02] MEDS: MAGNESIUM 1 GM/100 ML IVPB 100 ML IV SCH ×3 (06:09→07:23)
[2021-05-02] MEDS: CISATRACURIUM DRIP 250 ML IV SCH ×3 (06:10→19:35)
[2021-05-02] MEDS: fentaNYL DRIP PRE-MIX 250 ML IV SCH ×2 (06:13→09:46)
[2021-05-02] MEDS: PHENYLEPHRINE DOUBLE STRENGTH 20MG/ 250 ML IV SCH ×10 (06:18→20:42)
--- NOTE | 2021-05-02 06:42 | Progress Note ---
Subjective Date Seen by a Provider: May 02, 2021 Time Seen by a Provider: 11:45 Subjective/Events-last exam No significant change today Fever 101 Now having sputum production Maintain on vancomycin meropenem and Eraxis Sputum culture reviewed Objective Exam Last Set of Vital Signs Vital Signs Date Time Temp Pulse Resp B/P (MAP) Pulse Ox O2 Delivery O2 Flow Rate FiO2 05/02/21 06:18 108 102/74 05/02/21 06:00 37.9 20 95 Mechanical Ventilator 50.00 05/02/21 04:00 50 Capillary Refill : Less Than 3 Seconds I&O Intake and Output 05/02/21 00:00 Intake Total 4408 ml Output Total 2050 ml Balance 2358 ml Intake Oral 0 ml IV Total 4338 ml Tube Feeding 40 ml Other 30 ml Output Urine Total 2050 ml General: Other (Intubated and sedated) Lungs: Other (Coarse breath sounds) Abdomen: Normal Bowel Sounds Results Lab Laboratory Tests 05/01/21 10:59: Glucometer 65L 05/01/21 17:35: Glucometer 82 05/02/21 00:32: Glucometer 69L 05/02/21 05:00: Blood Gas Puncture Site RIGHT RADIAL, Blood Gas Patient Temperature 37.8, Arterial Blood pH 7.37, Arterial Blood Partial Pressure CO2 40, Arterial Blood Partial Pressure O2 81, Arterial Blood HCO3 23, Arterial Blood Total CO2 23.7, Arterial Blood Oxygen Saturation 96, Arterial Blood Base Excess -1.8, Aldo Test POSITIVE, Blood Gas Ventilator Setting YES, Blood Gas Inspired Oxygen 05/02/21 05:05: White Blood Count 9.6, Red Blood Count 4.15L, Hemoglobin 12.6L, Hematocrit 39L, Mean Corpuscular Volume 94, Mean Corpuscular Hemoglobin 30, Mean Corpuscular Hemoglobin Concent 32, Red Cell Distribution Width 14.2, Platelet Count 443H, Mean Platelet Volume 9.3, Immature Granulocyte % (Auto) 1, Neutrophils (%) (Auto) 86H, Lymphocytes (%) (Auto) 7L, Monocytes (%) (Auto) 5, Eosinophils (%) (Auto) 2, Basophils (%) (Auto) 1, Neutrophils # (Auto) 8.3H, Lymphocytes # (Auto) 0.6L, Monocytes # (Auto) 0.4, Eosinophils # (Auto) 0.1, Basophils # (Auto) 0.1, Immature Granulocyte # (Auto) 0.1, Sodium Level 137, Potassium Level 3.9, Chloride Level 106, Carbon Dioxide Level 21, Anion Gap 10, Blood Urea Nitrogen 10, Creatinine 0.57L, Estimat Glomerular Filtration Rate 140, BUN/Creatinine Ratio 18, Glucose Level 76, Calcium Level 7.6L, Corrected Calcium 9.4, Magnesium Level 1.7, Total Bilirubin 0.5, Aspartate Amino Transf (AST/SGOT) 33, Alanine Aminotransferase (ALT/SGPT) 43, Alkaline Phosphatase 149H, Total Protein 4.8L, Albumin 1.8L Microbiology 04/30/21 MRSA Screen - Final, Complete MRSA not isolated 04/26/21 Blood Culture - Preliminary, Resulted No growth Assessment/Plan Assessment/Plan Assess & Plan/Chief Complaint Assessment: COVID-19 pneumonia Acute hypoxic respiratory failure Ventilator dependence Status post bacterial pneumonia Plan: Supportive care Ventilator management appreciated 04/25/2021: Spoke to Steven son trach and PEG may be needed and he agrees with plan Not weanable yet DC isolation 04/26/2021: Trach and PEG may be required Supportive care 04/27/2021: Supportive care Monitor closely 04/28/2021: Needs PEG and trach 04/29/21: Family not willing to consider DNR 04/30/2021: PEG and trach [place] 05/01/2021: No significant change PEG and trach maintained 05/02/2021: Maintain vent per trach Antibiotics Monitor fever COTY SHIPMAN DO May 02, 2021 06:42
[2021-05-02] MEDS: ACETAMINOPHEN 500 MG TAB (TYLENOL) PO PRN ×2 (08:22→20:42)
[2021-05-02] MEDS: ANIDULAFUNGIN INJECTION 100 MG in NS (IVPB) 100 ML IV SCH (08:23)
[2021-05-02] MEDS: APIXABAN 5 MG (ELIQUIS) TABLET PO SCH ×2 (08:23→20:42)
[2021-05-02] MEDS: PANTOPRAZOLE 40 MG (PROTONIX) VIAL IV SCH (08:23)
[2021-05-02] MEDS ORDERED: TROUGH ORDER-PHARMACY XX NR (09:00)
--- NOTE | 2021-05-02 09:02 | Tele-ICU Progress Note ---
Subjective Date Seen by a Provider: May 02, 2021 Time Seen by a Provider: 08:20 Subjective/Events-last exam This virtual visit was conducted using real time audio/video. Thank you for asking us to see this patient for respiratory insufficiency and distress due to Covid pna. HPC: Recent events: Tracheostomy 04/30/21. PE: Resting comfortably. Appears chronically ill. VSS O2 sat 94% on 40%/+5 HEENT: No obvious masses, adenopathy or JVD. Chest: clear to auscultation. CV: RRR S1 S2 No murmur or added sounds. Abd: Non-tender. Bowel sounds Y. : Unremarkable. Trotter Y. 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 Extremities: No edema. Capillary refill < 3 seconds. Skin: unremarkable. Results: WCC down to 9.6. Decreased Hb 12.6. CXR w B infilts. A/P: Respiratory insufficiency/distress: consider SBT once FiO2 30%. Available chart/ vitals / labs /images reviewed. Video assessment done using teleICU camera, rest of exam as per RN. Critical Care: critically ill patient. Cont Alb., Propofol, statin, Dex., Abx., Anti-fungal. Discussed with ANGEL Otto. Asked RN to reach out to eICU if any questions or concerns later. Time spent with patient/family/coordination of care with other health professionals (mins): 20 Sepsis Event Evaluation Height, Weight, BMI Height: '" Weight: lbs. oz. kg; 21.43 BMI Method: Exam Exam Patient acknowledged, consented, and participated in this virtual visit which was conducted using real time audio/video Vital Signs Date Time Temp Pulse Resp B/P (MAP) Pulse Ox O2 Delivery O2 Flow Rate FiO2 05/02/21 08:50 94 Mechanical Ventilator 40 05/02/21 08:22 38.3 05/02/21 08:00 38.3 115 25 108/85 (93) 93 Mechanical Ventilator 50.00 05/02/21 07:03 108 26 94 40 05/02/21 07:00 38.2 103 19 112/83 (93) 92 Mechanical Ventilator 50.00 05/02/21 07:00 108 05/02/21 06:18 108 102/74 05/02/21 06:13 108 94/72 9/26/21 06:00 37.9 106 20 94/73 (80) 95 Mechanical Ventilator 50.00 05/02/21 05:00 37.8 115 22 105/66 (79) 94 Mechanical Ventilator 50.00 05/02/21 04:00 37.6 111 23 109/65 (80) 94 Mechanical Ventilator 50.00 05/02/21 04:00 93 Mechanical Ventilator 50 05/02/21 03:00 37.6 105 18 96/67 (77) 95 Mechanical Ventilator 50.00 05/02/21 02:24 90 20 96 40 05/02/21 02:00 37.7 97 18 96/63 (74) 96 Mechanical Ventilator 50.00 05/02/21 01:11 100 117/82 05/02/21 01:00 37.5 111 27 95/66 (76) 94 Mechanical Ventilator 50.00 05/02/21 01:00 111 05/02/21 00:00 93 Mechanical Ventilator 50 05/02/21 00:00 37.3 90 20 136/73 (94) 98 Mechanical Ventilator 50.00 05/01/21 23:00 37.5 90 20 125/90 (102) 94 Mechanical Ventilator 40.00 05/01/21 22:28 92 23 94 40 05/01/21 22:25 90 76/55 05/01/21 22:00 37.6 89 17 76/55 (62) 94 Mechanical Ventilator 40.00 05/01/21 21:00 37.6 85 19 110/79 (89) 94 Mechanical Ventilator 40.00 05/01/21 20:09 37.6 05/01/21 20:00 37.6 82 19 116/77 (90) 93 Mechanical Ventilator 40.00 05/01/21 20:00 93 Mechanical Ventilator 40 05/01/21 19:00 87 05/01/21 19:00 37.6 87 20 108/73 (85) 93 Mechanical Ventilator 40.00 05/01/21 18:36 85 20 94 40 05/01/21 18:00 37.6 82 23 115/82 (93) 94 Mechanical Ventilator 25.00 05/01/21 17:00 37.4 81 22 122/85 (97) 92 Mechanical Ventilator 25.00 05/01/21 16:05 37.3 05/01/21 16:00 37.3 88 22 131/72 (91) 93 Mechanical Ventilator 25.00 05/01/21 16:00 93 Mechanical Ventilator 40 05/01/21 15:33 90 134/95 05/01/21 15:19 90 25 94 40 05/01/21 15:00 37.2 68 17 138/92 (107) 95 Mechanical Ventilator 25.00 05/01/21 14:00 37.1 64 12 130/85 (100) 94 Mechanical Ventilator 25.00 05/01/21 13:00 65 05/01/21 13:00 37.1 58 14 130/90 (103) 93 Mechanical Ventilator 25.00 05/01/21 12:00 37.0 63 16 123/79 (94) 92 Mechanical Ventilator 25.00 05/01/21 12:00 93 Mechanical Ventilator 35 05/01/21 11:27 63 127/98 05/01/21 11:25 63 127/98 05/01/21 11:00 37.1 63 127/98 (108) 94 Mechanical Ventilator 25.00 05/01/21 10:58 63 21 93 40 05/01/21 10:00 37.5 74 121/82 (95) 95 Mechanical Ventilator 25.00 05/01/21 09:00 37.5 75 115/76 (89) 95 Mechanical Ventilator 25.00 I & O 05/02/21 07:00 Intake Total 3530 ml Output Total 2925 ml Balance 605 ml Height & Weight Height: '" Weight: lbs. oz. kg; 21.43 BMI Method: General Appearance: WD/WN, Chronically ill, Other (Sedated and intubated) HEENT: Other (Intubated. Pupils equal and reactive. ) Neck: Normal Inspection, Supple Respiratory: No Accessory Muscle Use, No Respiratory Distress; No Crackles; Decreased Breath Sounds (slightly); No Wheezing Cardiovascular: Irregularly Irregular, Other (bilateral pedal edema and edema in the hands. Feet are cold to the touch. LE Pulses not palpable due to edema. Radial pulses intact) Capillary Refill: Less Than 3 Seconds Peripheral Pulses: 1+ Dorsalis Pedis (R), 1+ Left Dors-Pedis (L), 1+ Radial Pulses (L) Gastrointestinal: soft; No distended Extremity: Normal Capillary Refill, No Pedal Edema, Swelling Neurologic/Psychiatric: No Alert; Other (sedated, no purposeful movements) Skin: Normal Color, Warm/Dry; No Rash (no rash to chest, abdomen, thighs, neck, or face.) Lymphatic: No Adenopathy Results Lab Laboratory Tests 05/01/21 04:20 05/02/21 05:05 Assessment/Plan Assessment/Plan See free text Critical Care: Ventilator Management CARL CABRALES MD May 02, 2021 09:02
[2021-05-02] MEDS: VANCOMYCIN INJECTION 1,500 MG in NS IV 500 ML 500 ML IV SCH ×2 (09:49→20:42)
[2021-05-02] MEDS: MIDAZOLAM DRIP PRE-MIX 100 ML IV SCH (13:24)
--- NOTE | 2021-05-02 14:48 | Cardiology Progress Note ---
Progress Note-Cardiology Events since last exam Date Seen by Provider: May 02, 2021 Time Seen by Provider: 14:44 Events since last exam We are following the patient due to atrial fibrillation and bradycardia. He remains on ventilator via tracheostomy. PEG was placed last week. I resumed his apixaban on 05/01. This has been held for his surgical procedures. I did not see the patient due to his Covid status. Certain portions of this document may have been dictated utilizing voice recognition technology. Inherent to this technology, typographical and grammatical errors may exist. As much as I am diligent to identify and correct these mistakes, some errors may remain in the document. Vitals Last set of Vitals Signs Vital Signs 05/02/21 05/02/21 05/02/21 12:00 14:00 14:19 Temp 37.8 Pulse 79 Resp 17 B/P (MAP) 121/87 Pulse Ox 90 O2 Delivery Mechanical Ventilator O2 Flow Rate 35.00 FiO2 40 Labs Labs Laboratory Tests 05/02/21 05:05 Exam Vital Signs Vital Signs Date Time Temp Pulse Resp B/P (MAP) Pulse Ox O2 Delivery O2 Flow Rate FiO2 05/02/21 14:19 79 121/87 05/02/21 14:00 37.8 17 90 Mechanical Ventilator 35.00 05/02/21 12:00 40 Physical Exam I did not see the patient due to his Covid status. Labs Laboratory Tests Test 05/01/21 17:35 05/02/21 00:32 05/02/21 05:00 05/02/21 05:05 Range/Units Glucometer 82 69 L 70-110 MG/DL Blood Gas Puncture Site RIGHT RADIAL Blood Gas Patient Temperature 37.8 Arterial Blood pH 7.37 7.37-7.43 Arterial Blood Partial Pressure CO2 40 35-45 MMHG Arterial Blood Partial Pressure O2 81 79-93 MMHG Arterial Blood HCO3 23 23-27 MMOL/L Arterial Blood Total CO2 23.7 21.0-31.0 MMOL/L Arterial Blood Oxygen Saturation 96 94-100 % Arterial Blood Base Excess -1.8 -2.5-2.5 MMOL/L Aldo Test POSITIVE Blood Gas Ventilator Setting YES Blood Gas Inspired Oxygen 25 White Blood Count 9.6 4.3-11.0 10^3/uL Red Blood Count 4.15 L 4.30-5.52 10^6/uL Hemoglobin 12.6 L 13.3-17.7 g/dL Hematocrit 39 L 40-54 % Mean Corpuscular Volume 94 80-99 fL Mean Corpuscular Hemoglobin 30 25-34 pg Mean Corpuscular Hemoglobin Concent 32 32-36 g/dL Red Cell Distribution Width 14.2 10.0-14.5 % Platelet Count 443 H 130-400 10^3/uL Mean Platelet Volume 9.3 9.0-12.2 fL Immature Granulocyte % (Auto) 1 % Neutrophils (%) (Auto) 86 H 42-75 % Lymphocytes (%) (Auto) 7 L 12-44 % Monocytes (%) (Auto) 5 0-12 % Eosinophils (%) (Auto) 2 0-10 % Basophils (%) (Auto) 1 0-10 % Neutrophils # (Auto) 8.3 H 1.8-7.8 10^3/uL Lymphocytes # (Auto) 0.6 L 1.0-4.0 10^3/uL Monocytes # (Auto) 0.4 0.0-1.0 10^3/uL Eosinophils # (Auto) 0.1 0.0-0.3 10^3/uL Basophils # (Auto) 0.1 0.0-0.1 10^3/uL Immature Granulocyte # (Auto) 0.1 0.0-0.1 10^3/uL Sodium Level 137 135-145 MMOL/L Potassium Level 3.9 3.6-5.0 MMOL/L Chloride Level 106 98-107 MMOL/L Carbon Dioxide Level 21 21-32 MMOL/L Anion Gap 10 5-14 MMOL/L Blood Urea Nitrogen 10 7-18 MG/DL Creatinine 0.57 L 0.60-1.30 MG/DL Estimat Glomerular Filtration Rate 140 BUN/Creatinine Ratio 18 Glucose Level 76 70-105 MG/DL Calcium Level 7.6 L 8.5-10.1 MG/DL Corrected Calcium 9.4 8.5-10.1 MG/DL Magnesium Level 1.7 1.6-2.4 MG/DL Total Bilirubin 0.5 0.1-1.0 MG/DL Aspartate Amino Transf (AST/SGOT) 33 5-34 U/L Alanine Aminotransferase (ALT/SGPT) 43 0-55 U/L Alkaline Phosphatase 149 H 40-136 U/L Total Protein 4.8 L 6.4-8.2 GM/DL Albumin 1.8 L 3.2-4.5 GM/DL Test 05/02/21 08:41 05/02/21 12:38 Range/Units Vancomycin Level Trough 18.7 10.0-20.0 UG/ML Glucometer 98 70-110 MG/DL Diagnosis/Problems Diagnosis/Problems (1) Persistent atrial fibrillation Assessment & Plan: He remains in atrial fibrillation. Exact duration unknown. Continue apixaban. His heart rates are controlled on no AV shimon blocking agents. This is suggestive of some degree of conduction disease. If he recovers from the Covid infection, he will eventually need some additional noninvasive cardiac testing. (2) Bradycardia Assessment & Plan: As above, he has well-controlled heart rates despite being in atrial fibrillation. As above, this is suggestive of some degree of underlying AV shimon dysfunction. We have been seeing this with Covid. There ar e no indications for temporary or permanent pacemaker at this point in time. We will continue to monitor him on telemetry. (3) Mixed hyperlipidemia Assessment & Plan: Continue home dose of atorvastatin. (4) HAYDE (acute kidney injury) Status: Acute Assessment & Plan: He had acute kidney injury at the time of admission. This has improved. There is no indication to adjust the dose of apixaban. (5) Acute respiratory failure due to COVID-19 Status: Acute Assessment & Plan: This is being managed by the hospitalist. As above, he now has a tracheostomy and PEG in place. MARTÍNEZ LEMON JR, MD May 02, 2021 14:47
[2021-05-02] MEDS: AtorvaSTATin TABLET 10 MG TABLET PO SCH (20:41)
[2021-05-03] VITALS (31 sets, daily range): BP systolic 90–134; BP diastolic 54–93
[2021-05-03] MEDS: inSUlin ASPART (NovoLOG) 1 UNIT/0.01 ML (CHARGE PER UNIT) SQ SCH ×5 (01:59→22:59)
[2021-05-03] MEDS: MEROPENEM 1,000 MG in WATER (STERILE) FOR INJECTION 20 ML IV SCH ×4 (01:59→22:59)
[2021-05-03] MEDS: CISATRACURIUM DRIP 250 ML IV SCH (02:00)
[2021-05-03] MEDS: PHENYLEPHRINE DOUBLE STRENGTH 20MG/ 250 ML IV SCH ×10 (02:00→22:59)
[2021-05-03] MEDS: MIDAZOLAM DRIP PRE-MIX 100 ML IV SCH (02:00)
[2021-05-03] MEDS: fentaNYL DRIP PRE-MIX 250 ML IV SCH ×2 (02:00→12:02)
[2021-05-03] MEDS: RT-ALBUTEROL SULF 2.5 MG/3 ML PRE-MIX VIAL INH SCH ×6 (02:12→21:17)
[2021-05-03 04:36] LABS: BASOPHILS # (AUTO) 0.1 10^3/uL (0.0-0.1); BASOPHILS % (AUTO) 1 % (0-10); EOSINOPHILS # (AUTO) 0.2 10^3/uL (0.0-0.3); EOSINOPHILS % (AUTO) 2 % (0-10); HEMATOCRIT 39 % (40-54); HEMOGLOBIN 12.9 g/dL (13.3-17.7); LYMPHOCYTES # (AUTO) 0.9 10^3/uL (1.0-4.0); LYMPHOCYTES % (AUTO) 9 % (12-44); MEAN CORPUSCULAR HEMOGLOBIN 31 pg (25-34); MEAN CORPUSCULAR HGB CONC 33 g/dL (32-36); MEAN CORPUSCULAR VOLUME 95 fL (80-99); MEAN PLATELET VOLUME 9.1 fL (9.0-12.2); MONOCYTES # (AUTO) 0.6 10^3/uL (0.0-1.0); MONOCYTES % (AUTO) 6 % (0-12); NEUTROPHILS % (AUTO) 82 % (42-75); PLATELET COUNT 538 10^3/uL (130-400); WHITE BLOOD COUNT 10.9 10^3/uL (4.3-11.0)
[2021-05-03 04:37] LABS: ABG BASE EXCESS 1.4 MMOL/L (-2.5-2.5); ABG OXYGEN SATURATION 91 % (94-100); ABG PCO2 45 MMHG (35-45); ABG PH 7.38 (7.37-7.43); ABG PO2 60 MMHG (79-93); ABG TCO2 27.3 MMOL/L (21.0-31.0)
[2021-05-03 04:43] LABS: ALLENS TEST YES-POS; INSPIRED O2 40%; PATIENT TEMP 37.5; VENTILATOR YES
[2021-05-03 04:54] LABS: ALBUMIN 1.9 GM/DL (3.2-4.5); BILIRUBIN,TOTAL 0.4 MG/DL (0.1-1.0); CALCIUM 7.8 MG/DL (8.5-10.1); CREATININE SERUM 0.52 MG/DL (0.60-1.30); MAGNESIUM 2.2 MG/DL (1.6-2.4); PHOSPHORUS 2.5 MG/DL (2.3-4.7); POTASSIUM 3.9 MMOL/L (3.6-5.0); TOTAL PROTEIN 4.9 GM/DL (6.4-8.2)
[2021-05-03] MEDS: MAGNESIUM 1 GM/100 ML IVPB 100 ML IV SCH (05:03)
[2021-05-03] MEDS: POTASSIUM CL 10MEQ/50ML IVPB 50 ML IV SCH (05:03)
[2021-05-03] MEDS: KCL 20 MEQ TAB (K-DUR) PO SCH (05:04)
[2021-05-03] MEDS: ACETAMINOPHEN 500 MG TAB (TYLENOL) PO PRN ×3 (05:43→18:39)
[2021-05-03] MEDS: PANTOPRAZOLE 40 MG (PROTONIX) VIAL IV SCH (09:18)
[2021-05-03] MEDS: APIXABAN 5 MG (ELIQUIS) TABLET PO SCH ×2 (09:19→20:10)
[2021-05-03] MEDS: ANIDULAFUNGIN INJECTION 100 MG in NS (IVPB) 100 ML IV SCH (09:37)
--- NOTE | 2021-05-03 10:21 | Progress Note ---
Subjective Date Seen by a Provider: May 03, 2021 Time Seen by a Provider: 09:00 Subjective/Events-last exam Patient remains stable Reviewed antibiotics Check meds and labs [facility] eval for transfer Prognosis guarded Lungs are coarse Objective Exam Last Set of Vital Signs Vital Signs Date Time Temp Pulse Resp B/P (MAP) Pulse Ox O2 Delivery O2 Flow Rate FiO2 05/03/21 10:00 37.5 93 19 103/71 (82) 91 Mechanical Ventilator 40.00 05/03/21 07:42 40 Capillary Refill : Less Than 3 Seconds I&O Intake and Output 05/03/21 00:00 Intake Total 4123 ml Output Total 4425 ml Balance -302 ml Intake Oral 0 ml IV Total 3423 ml Tube Feeding 440 ml Other 260 ml Output Urine Total 4425 ml General: Other (Sedated and intubated) Lungs: Other (Coarse breath sounds all kong) Heart: Regular Rate Results Lab Laboratory Tests 05/02/21 12:38: Glucometer 98 05/02/21 17:20: Glucometer 102 05/03/21 01:55: Glucometer 104 05/03/21 04:15: White Blood Count 10.9, Red Blood Count 4.17L, Hemoglobin 12.9L, Hematocrit 39L, Mean Corpuscular Volume 95, Mean Corpuscular Hemoglobin 31, Mean Corpuscular Hemoglobin Concent 33, Red Cell Distribution Width 14.0, Platelet Count 538H, Mean Platelet Volume 9.1, Immature Granulocyte % (Auto) 1, Neutrophils (%) (Auto) 82H, Lymphocytes (%) (Auto) 9L, Monocytes (%) (Auto) 6, Eosinophils (%) (Auto) 2, Basophils (%) (Auto) 1, Neutrophils # (Auto) 9.0H, Lymphocytes # (Auto) 0.9L, Monocytes # (Auto) 0.6, Eosinophils # (Auto) 0.2, Basophils # (Auto) 0.1, Immature Granulocyte # (Auto) 0.1, Blood Gas Puncture Site RT RADIAL, Blood Gas Patient Temperature 37.5, Arterial Blood pH 7.38, Arterial Blood Partial Pressure CO2 45, Arterial Blood Partial Pressure O2 60L, Arterial Blood HCO3 26, Arterial Blood Total CO2 27.3, Arterial Blood Oxygen Saturation 91L, Arterial Blood Base Excess 1.4, Aldo Test YES-POS, Blood Gas Ventilator Setting YES, Blood Gas Inspired Oxygen 40%, Sodium Level 138, Potassium Level 3.9, Chloride Level 107, Carbon Dioxide Level 23, Anion Gap 8, Blood Urea Nitrogen 8, Creatinine 0.52L, Estimat Glomerular Filtration Rate 155, BUN /Creatinine Ratio 15, Glucose Level 109H, Calcium Level 7.8L, Corrected Calcium 9.5, Phosphorus Level 2.5, Magnesium Level 2.2, Total Bilirubin 0.4, Aspartate Amino Transf (AST/SGOT) 38H, Alanine Aminotransferase (ALT/SGPT) 48, Alkaline Phosphatase 215H, Total Protein 4.9L, Albumin 1.9L Microbiology 04/30/21 MRSA Screen - Final, Complete MRSA not isolated 04/26/21 Blood Culture - Final, Complete No growth Assessment/Plan Assessment/Plan Assess & Plan/Chief Complaint Assessment: COVID-19 pneumonia Acute hypoxic respiratory failure Ventilator dependence Status post bacterial pneumonia Plan: Supportive care Ventilator management appreciated 04/25/2021: Spoke to Steven zamora trach and PEG may be needed and he agrees with plan Not weanable yet DC isolation 04/26/2021: Trach and PEG may be required Supportive care 04/27/2021: Supportive care Monitor closely 04/28/2021: Needs PEG and trach 04/29/21: Family not willing to consider DNR 04/30/2021: PEG and trach [facility] 05/01/2021: No significant change PEG and trach maintained 05/02/2021: Maintain vent per trach Antibiotics Monitor fever 05/03/2021: [facility] eval for transfer Prognosis guarded COTY SHIPMAN DO May 03, 2021 10:21
--- NOTE | 2021-05-03 10:23 | Tele-ICU Progress Note ---
Subjective Date Seen by a Provider: May 03, 2021 Time Seen by a Provider: 10:23 Sepsis Event Evaluation Height, Weight, BMI Height: '" Weight: lbs. oz. kg; 21.43 BMI Method: Exam Exam Patient acknowledged, consented, and participated in this virtual visit which was conducted using real time audio/video Vital Signs Date Time Temp Pulse Resp B/P (MAP) Pulse Ox O2 Delivery O2 Flow Rate FiO2 05/03/21 10:00 37.5 93 19 103/71 (82) 91 Mechanical Ventilator 40.00 05/03/21 09:00 37.5 98 71 98/71 (80) 92 Mechanical Ventilator 40.00 05/03/21 08:00 37.7 105 16 115/83 (94) 92 Mechanical Ventilator 40.00 05/03/21 07:42 105 20 92 40 05/03/21 07:32 78 21 95 40 05/03/21 07:00 38.1 80 18 98/72 (81) 94 Mechanical Ventilator 40.00 05/03/21 06:53 87 05/03/21 06:00 38.1 103 13 106/76 (86) 91 Mechanical Ventilator 40.00 05/03/21 05:43 113/87 05/03/21 05:43 38.0 05/03/21 05:28 118 28 91 05/03/21 05:00 37.7 86 24 115/77 (102) 93 Mechanical Ventilator 40.00 05/03/21 04:00 37.5 78 19 110/93 (99) 94 Mechanical Ventilator 40.00 05/03/21 04:00 92 Mechanical Ventilator 40 05/03/21 03:15 37.4 83 18 103/75 (84) 94 Mechanical Ventilator 40.00 05/03/21 03:04 Mechanical Ventilator 40.00 05/03/21 02:12 95 20 92 40 05/03/21 02:00 84 05/03/21 02:00 96/63 05/03/21 02:00 37.4 75 16 90/69 (76) 93 Mechanical Ventilator 40.00 05/03/21 01:00 77 05/03/21 01:00 37.3 77 17 90/70 (77) 95 Mechanical Ventilator 40.00 05/03/21 00:00 93 Mechanical Ventilator 40 05/03/21 00:00 37.4 81 14 94/70 (78) 93 Mechanical Ventilator 40.00 05/02/21 23:00 37.7 89 15 90/57 (68) 92 Mechanical Ventilator 40.00 05/02/21 22:00 38.3 89 16 96/68 (77) 92 Mechanical Ventilator 40.00 05/02/21 21:55 96 25 92 40 05/02/21 21:12 38.2 05/02/21 21:00 38.4 95 19 116/82 (95) 91 Mechanical Ventilator 40.00 05/02/21 20:42 113/85 05/02/21 20:42 38.3 05/02/21 20:00 91 Mechanical Ventilator 40 05/02/21 20:00 38.2 137 11 113/91 (101) 90 Mechanical Ventilator 40.00 05/02/21 19:10 96 22 92 40 05/02/21 19:00 38.2 Mechanical Ventilator 40.00 05/02/21 19:00 92 05/02/21 19:00 38.0 92 20 130/93 (104) 92 Mechanical Ventilator 40.00 05/02/21 18:23 Mechanical Ventilator 40.00 05/02/21 18:00 37.9 86 21 131/102 (112) 89 Mechanical Ventilator 35.00 05/02/21 17:25 88 114/82 05/02/21 17:00 37.9 80 21 118/87 (97) 90 Mechanical Ventilator 35.00 05/02/21 16:34 92 Mechanical Ventilator 35 05/02/21 16:00 37.8 88 20 114/82 (93) 90 Mechanical Ventilator 35.00 05/02/21 15:26 85 27 92 35 05/02/21 15:00 37.8 85 20 116/86 (96) 91 Mechanical Ventilator 35.00 05/02/21 14:19 79 121/87 05/02/21 14:00 37.8 79 17 121/87 (98) 90 Mechanical Ventilator 35.00 05/02/21 13:24 79 17 120/85 05/02/21 13:00 37.6 79 17 120/85 (97) 89 Mechanical Ventilator 35.00 05/02/21 12:52 86 05/02/21 12:00 94 Mechanical Ventilator 40 05/02/21 12:00 37.6 80 16 116/86 (96) 93 Mechanical Ventilator 35.00 05/02/21 11:41 35.00 05/02/21 11:39 87 98/66 05/02/21 11:00 37.9 87 16 98/66 (77) 95 Mechanical Ventilator 50.00 05/02/21 10:53 96 22 94 40 I & O 05/03/21 07:00 Intake Total 3648 ml Output Total 5000 ml Balance -1352 ml Height & Weight Height: '" Weight: lbs. oz. kg; 21.43 BMI Method: General Appearance: WD/WN, Chronically ill, Other (Sedated and intubated) HEENT: Other (Intubated. Pupils equal and reactive. ) Neck: Normal Inspection, Supple Respiratory: No Accessory Muscle Use, No Respiratory Distress; No Crackles; Decreased Breath Sounds (slightly); No Wheezing Cardiovascular: Irregularly Irregular, Other (bilateral pedal edema and edema in the hands. Feet are cold to the touch. LE Pulses not palpable due to edema. Radial pulses intact) Capillary Refill: Less Than 3 Seconds Peripheral Pulses: 1+ Dorsalis Pedis (R), 1+ Left Dors-Pedis (L), 1+ Radial Pulses (L) Gastrointestinal: soft; No distended Extremity: Normal Capillary Refill, No Pedal Edema, Swelling Neurologic/Psychiatric: No Alert; Other (sedated, no purposeful movements) Skin: Normal Color, Warm/Dry; No Rash (no rash to chest, abdomen, thighs, neck, or face.) Lymphatic: No Adenopathy Results Lab Laboratory Tests 05/02/21 05:05 05/03/21 04:15 Assessment/Plan Assessment/Plan (Tele-ICU Physician , Progress Note ) Available chart/ vitals / labs / Images reviewed Video assessment done using teleICU camera, rest of exam as per RN Discussed with RN , EXAM PER RN Events overnight : . more hypotensive FEBRILE 38.1 I/O = pos even Drips: lisa 75 Pressors: off 04/19 hemodynamically stable Sedation gtt: ( RASS -3 ) fentanyl 75 versed 4 - NOT follow commands VENT SETTINGS and ABG reviewed Consultants: arjun Hospital course: 04/11 - Vapotherm at 35 L and 85% 04/13 = to ICU , BiPAP 16/10 100% -> failed -> INTUBATED , peep 16 100% 04/14 - lisa/vaso , WBC 32 , AC 28 550 +12 55% 04/15 - hb ? 8.4 70 % +8 04/19 - AC 26 600 +16 70 % 04/20- AC 26 600 +12 50 % , NEW FEVER , possible aspiration , OFF pressors 04/22 - CTchest - bilat effusions 4 cm , infiltrtes L>R 04/26 - SBT 05/11 04/27 - started on merrem and antifungal 04/29 - lisa 75 04/10- sputum cx = + PSA 04/30/2021: PEG and trach A/P AHRF / ARDS due to severe COVID19 -intubated 04/13 - now on AC 18 600 +5 35% - Fio2 -- CTchest - bilat effusions 4 cm , infiltrtes L>R - sedation vaction follow commands , but inct cough - SBT 05/11 , elv WOB on 04/26 - to cont attempts Shock - OFF vasopressors -04/20- BACK ON LEVO 04/28 - check cortisol level [id number]-19 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 , 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 ) -Steroids IV - started 04/12- TAPERING 04/22- STOPPED 04/26 -Hypercoagulable state , DDIMER > 20 on 04/10 -> eliquis ( no evidence of large PE on CT 04/10 ) Suspected superimposed bact PNA ( week 3 of covid , legionella ab neg ) -empiric ceftriaxone 04/11 Cx sputum 04/13 post intubation - usual jack -NEW FEVER 04/20 - suspected aspiration even 04/20 -> was already on zosyn 04/16 ->04/21 STILL FEBRILE ,-04/22 CTchest - bilat effusions 4 cm , infiltrtes L>R , not sispected empyema or abscess by images - will repeat spum cx ( from still not reported ) , cx from LPICC and repeat UA 04/27 - started on merrem and antifungal 04/30 - added VANCO empirically , sputum cx sent = resulted + PSA WILL CONT SAME ABX TODAY _ AWAIT CX A Fib of unknown duration (seen on admission on 04/11/21) - cards consulted - rate controlled - eliquis CODE Status - FULL , as per notes on H&P : " He would be ok with being on the ventilator if needed. When asked about code status, he says, "Just try for one round and then let me go." Lines : Left femrol line 04/13 removed 04/14 . PICC L arm 04/14 (Central Line Necessity Reviewed) Trotter: 04/13 OG: + Nutrition: TF - 04/20 - REglan ( KUB , WNL ) TOLERATES TF 04/21 - regaln to prn 04/27- TF PEG - tolerates Analgesia: Anxiety/ delirium VTE Prophylaxis: eliquis Stress Ulcer Prophylaxis: TF Glycemic Control: Plans in collaboration with bedside consultants and IM MDs. Discussed with RN to reach out if any questions or concerns A total of 38 minutes of critical care time was devoted to this patient today, required to treat and/or prevent further deterioration of critical care condition ( as above) . NNAMDI KRUSE MD May 03, 2021 10:23
--- NOTE | 2021-05-03 11:04 | Pulmonary Progress Note ---
ROBYN SUMMERS MED STUDENT 05/03/21 1104: Subjective Date Seen by a Provider: May 03, 2021 Time Seen by a Provider: 07:15 Subjective/Events-last exam This is Saud a 75 yo male admitted on 04/10 with the chief complaint of COVID- 19 and hypoxia. Pt was laying in bed unresponsive on sedation mechanically ventilated with an endotracheal tube. Settings are a rate of 18, Vte of 504ml, and a Ppeak of 21. Sedation was decreased this morning. He is handling tube feeds well according to nursing staff. Sepsis Event Evaluation Height, Weight, BMI Height: '" Weight: lbs. oz. kg; 21.43 BMI Method: Focused Exam Time of Focused Exam: 07:15 Respiratory: No Accessory Muscle Use, Decreased Breath Sounds, Respiratory Dist ress Cardiovascular: Regular Rate, Rhythm, No Gallop, No Murmur, Normal Peripheral Pulses Skin: normal color, warm/dry Exam Exam Patient acknowledged, consented, and participated in this virtual visit which was conducted using real time audio/video Vital Signs Date Time Temp Pulse Resp B/P (MAP) Pulse Ox O2 Delivery O2 Flow Rate FiO2 05/03/21 10:00 37.5 93 19 103/71 (82) 91 Mechanical Ventilator 40.00 05/03/21 09:00 37.5 98 71 98/71 (80) 92 Mechanical Ventilator 40.00 05/03/21 08:00 37.7 105 16 115/83 (94) 92 Mechanical Ventilator 40.00 05/03/21 07:42 105 20 92 40 05/03/21 07:32 78 21 95 40 05/03/21 07:00 38.1 80 18 98/72 (81) 94 Mechanical Ventilator 40.00 05/03/21 06:53 87 05/03/21 06:00 38.1 103 13 106/76 (86) 91 Mechanical Ventilator 40.00 05/03/21 05:43 113/87 05/03/21 05:43 38.0 05/03/21 05:28 118 28 91 05/03/21 05:00 37.7 86 24 115/77 (102) 93 Mechanical Ventilator 40.00 05/03/21 04:00 37.5 78 19 110/93 (99) 94 Mechanical Ventilator 40.00 05/03/21 04:00 92 Mechanical Ventilator 40 05/03/21 03:15 37.4 83 18 103/75 (84) 94 Mechanical Ventilator 40.00 05/03/21 03:04 Mechanical Ventilator 40.00 05/03/21 02:12 95 20 92 40 05/03/21 02:00 84 05/03/21 02:00 96/63 05/03/21 02:00 37.4 75 16 90/69 (76) 93 Mechanical Ventilator 40.00 05/03/21 01:00 77 05/03/21 01:00 37.3 77 17 90/70 (77) 95 Mechanical Ventilator 40.00 05/03/21 00:00 93 Mechanical Ventilator 40 05/03/21 00:00 37.4 81 14 94/70 (78) 93 Mechanical Ventilator 40.00 05/02/21 23:00 37.7 89 15 90/57 (68) 92 Mechanical Ventilator 40.00 05/02/21 22:00 38.3 89 16 96/68 (77) 92 Mechanical Ventilator 40.00 05/02/21 21:55 96 25 92 40 05/02/21 21:12 38.2 05/02/21 21:00 38.4 95 19 116/82 (95) 91 Mechanical Ventilator 40.00 05/02/21 20:42 113/85 05/02/21 20:42 38.3 05/02/21 20:00 91 Mechanical Ventilator 40 05/02/21 20:00 38.2 137 11 113/91 (101) 90 Mechanical Ventilator 40.00 05/02/21 19:10 96 22 92 40 05/02/21 19:00 38.2 Mechanical Ventilator 40.00 05/02/21 19:00 92 05/02/21 19:00 38.0 92 20 130/93 (104) 92 Mechanical Ventilator 40.00 05/02/21 18:23 Mechanical Ventilator 40.00 05/02/21 18:00 37.9 86 21 131/102 (112) 89 Mechanical Ventilator 35.00 05/02/21 17:25 88 114/82 05/02/21 17:00 37.9 80 21 118/87 (97) 90 Mechanical Ventilator 35.00 05/02/21 16:34 92 Mechanical Ventilator 35 05/02/21 16:00 37.8 88 20 114/82 (93) 90 Mechanical Ventilator 35.00 05/02/21 15:26 85 27 92 35 05/02/21 15:00 37.8 85 20 116/86 (96) 91 Mechanical Ventilator 35.00 05/02/21 14:19 79 121/87 05/02/21 14:00 37.8 79 17 121/87 (98) 90 Mechanical Ventilator 35.00 05/02/21 13:24 79 17 120/85 05/02/21 13:00 37.6 79 17 120/85 (97) 89 Mechanical Ventilator 35.00 05/02/21 12:52 86 05/02/21 12:00 94 Mechanical Ventilator 40 05/02/21 12:00 37.6 80 16 116/86 (96) 93 Mechanical Ventilator 35.00 05/02/21 11:41 35.00 05/02/21 11:39 87 98/66 05/02/21 11:00 37.9 87 16 98/66 (77) 95 Mechanical Ventilator 50.00 I & O 05/03/21 07:00 Intake Total 3648 ml Output Total 5000 ml Balance -1352 ml Height & Weight Height: '" Weight: lbs. oz. kg; 21.43 BMI Method: General Appearance: WD/WN, Chronically ill, Other (Sedated and intubated) Neck: Normal Inspection, Supple Respiratory: No Accessory Muscle Use, Decreased Breath Sounds Cardiovascular: Regular Rate, Rhythm, No Gallop, No Murmur, Normal Peripheral Pulses, Irregularly Irregular, Other (bilateral pedal edema and edema in the hands. Feet are cold to the touch. LE Pulses not palpable due to edema. Radial pulses intact) Capillary Refill: Less Than 3 Seconds Peripheral Pulses: 1+ Dorsalis Pedis (R), 1+ Left Dors-Pedis (L), 1+ Radial Pulses (L) Gastrointestinal: soft; No distended Extremity: Normal Capillary Refill, Swelling Neurologic/Psychiatric: No Alert, No Oriented x3; Other (sedated, no purposeful movements) Skin: Normal Color, Warm/Dry; No Rash (no rash to chest, abdomen, thighs, neck, or face.) Results Lab Laboratory Tests 05/02/21 05:05 05/03/21 04:15 Assessment/Plan Assessment/Plan COVID-19 pneumonia continue steroids and antibiotics acute hypoxic respiratory failure maintain intubation and sedation febrile tempurature of 38.1 C on 05/03 [address] [facility] for transfer hyperglycemia controlled with insulin continue supportive care maintain ICU status DVT/PE prophylaxis eliquis mild tachycardia HR of 103 on 05/03 elevated liver enzymes AST of 38 on 05/03 follow up on cortisol lab draw NNAMDI KRUSE MD 05/06/21 1429: Supervisory-Addendum Brief Verification & Attestation Participated in pt care: history, MDM, physical Personally performed: history, MDM, supervision of care Care discussed with: Medical Student Procedures: n/a A medical student performed and documented this service. I reviewed information documented by the medical student . Medical student performed patients physical exam . Medical decision making was done during tele-rounds with this medical student and a bedside RN . Please see my notes for details /clarification of assessment and plans ROBYN SUMMERS MED STUDENT May 03, 2021 11:04 NNAMDI KRUSE MD May 06, 2021 14:29
[2021-05-03] MEDS: VANCOMYCIN INJECTION 1,500 MG in NS IV 500 ML 500 ML IV SCH (11:08)
[2021-05-03] MEDS: ALPRAZolam 0.25 MG (XANAX) TAB PO PRN ×2 (11:26→20:10)
--- NOTE | 2021-05-03 11:45 | Progress Note - Cardiology ---
Cardiology SOAP Progress Note [facility] Unresponsive Objective: I&O/Vital Signs 05/03/21 05/03/21 05/03/21 05/03/21 00:00 00:00 01:00 01:00 Temp 37.4 37.3 Pulse 81 77 77 Resp 14 17 B/P (MAP) 94/70 (78) 90/70 (77) Pulse Ox 93 93 95 O2 Delivery Mechanical Ventilator Mechanical Ventilator Mechanical Ventilator O2 Flow Rate 40.00 40.00 FiO2 40 05/03/21 05/03/21 05/03/21 05/03/21 02:00 02:00 02:00 02:12 Temp 37.4 Pulse 75 84 95 Resp 16 20 B/P (MAP) 90/69 (76) 96/63 Pulse Ox 93 92 O2 Delivery Mechanical Ventilator O2 Flow Rate 40.00 FiO2 40 05/03/21 05/03/21 05/03/21 05/03/21 03:04 03:15 04:00 04:00 Temp 37.4 37.5 Pulse 83 78 Resp 18 19 B/P (MAP) 103/75 (84) 110/93 (99) Pulse Ox 94 92 94 O2 Delivery Mechanical Ventilator Mechanical Ventilator Mechanical Ventilator Mechanical Ventilator O2 Flow Rate 40.00 40.00 40.00 FiO2 40 05/03/21 05/03/21 05/03/21 05/03/21 05:00 05:28 05:43 05:43 Temp 37.7 38.0 Pulse 86 118 Resp 24 28 B/P (MAP) 115/77 (102) 113/87 Pulse Ox 93 91 O2 Delivery Mechanical Ventilator O2 Flow Rate 40.00 05/03/21 05/03/21 05/03/21 05/03/21 06:00 06:53 07:00 07:32 Temp 38.1 38.1 Pulse 103 87 80 78 Resp 13 18 21 B/P (MAP) 106/76 (86) 98/72 (81) Pulse Ox 91 94 95 O2 Delivery Mechanical Ventilator Mechanical Ventilator O2 Flow Rate 40.00 40.00 FiO2 40 05/03/21 05/03/21 05/03/21 05/03/21 07:42 08:00 08:00 09:00 Temp 37.7 37.5 Pulse 105 105 98 Resp 20 16 71 B/P (MAP) 115/83 (94) 98/71 (80) Pulse Ox 92 94 92 92 O2 Delivery Mechanical Ventilator Mechanical Ventilator Mechanical Ventilator O2 Flow Rate 40.00 40.00 FiO2 40 40 05/03/21 05/03/21 05/03/21 10:00 11:00 11:01 Temp 37.5 37.3 Pulse 93 90 104 Resp 19 19 20 B/P (MAP) 103/71 (82) 94/68 (77) Pulse Ox 91 90 91 O2 Delivery Mechanical Ventilator Mechanical Ventilator O2 Flow Rate 40.00 40.00 FiO2 40 05/03/21 00:00 Intake Total 1701 ml Output Total 2700 ml Balance -999 ml Constitutional: other (s/p tracheostomy, on mech vent, unable to communicate; I did not physically examine the patient to reduce exposure to COVID-19) Results/Procedures: Labs Laboratory Tests 05/02/21 12:38: Glucometer 98 05/02/21 17:20: Glucometer 102 05/03/21 01:55: Glucometer 104 05/03/21 04:15: White Blood Count 10.9, Red Blood Count 4.17L, Hemoglobin 12.9L, Hematocrit 39L, Mean Corpuscular Volume 95, Mean Corpuscular Hemoglobin 31, Mean Corpuscular Hemoglobin Concent 33, Red Cell Distribution Width 14.0, Platelet Count 538H, Mean Platelet Volume 9.1, Immature Granulocyte % (Auto) 1, Neutrophils (%) (Auto) 82H, Lymphocytes (%) (Auto) 9L, Monocytes (%) (Auto) 6, Eosinophils (%) (Auto) 2, Basophils (%) (Auto) 1, Neutrophils # (Auto) 9.0H, Lymphocytes # (Auto) 0.9L, Monocytes # (Auto) 0.6, Eosinophils # (Auto) 0.2, Basophils # (Auto) 0.1, Immature Granulocyte # (Auto) 0.1, Blood Gas Puncture Site RT RADIAL, Blood Gas Patient Temperature 37.5, Arterial Blood pH 7.38, Arterial Blood Partial Pressure CO2 45, Arterial Blood Partial Pressure O2 60L, Arterial Blood HCO3 26, Arterial Blood Total CO2 27.3, Arterial Blood Oxygen Saturation 91L, Arterial Blood Base Excess 1.4, Aldo Test YES-POS, Blood Gas Ventilator Setting YES, Blood Gas Inspired Oxygen 40%, Sodium Level 138, Potassium Level 3.9, Chloride Level 107, Carbon Dioxide Level 23, Anion Gap 8, Blood Urea Nitrogen 8, Creatinine 0.52L, Estimat Glomerular Filtration Rate 155, BUN/Creatinine Ratio 15, Glucose Level 109H, Calcium Level 7.8L, Corrected Calcium 9.5, Phosphorus Level 2.5, Magnesium Level 2.2, Total Bilirubin 0.4, Aspartate Amino Transf (AST/SGOT) 38H, Alanine Aminotransferase (ALT/SGPT) 48, Alkaline Phosphatase 215H, Total Protein 4.9L, Albumin 1.9L Microbiology 04/30/21 MRSA Screen - Final, Complete MRSA not isolated 04/26/21 Blood Culture - Final, Complete No growth A/P: Assessment: COVID-19 pneumonia progressing to resp failure and requiring mechanical ventilation A Fib of unknown duration (seen on admission on 04/11/21), pt is known to have intermittent bradycardia without any hemodynamic significance - OAC with Eliquis Plan: * Cardiac status is essentially unchanged * Hospitalist and ICU services are managing COVID-19 and pneumonia and resp failure * Ventricular rate from A Fib continues to remain controlled (chronically slow vent response) * Continue anticoag for stroke prophylaxis * Monitor labs RONNIE RAMIREZ MD FACP FAC CCDS May 03, 2021 11:45
[2021-05-03] MEDS: MIDAZOLAM 2 MG/2 ML (VERSED) VIAL IVP PRN (11:58)
[2021-05-03] MEDS: DexMEDEtomidine 250 ML DRIP 250 ML IV SCH (13:20)
[2021-05-03] MEDS ORDERED: MIDAZOLAM 2 MG/2 ML (VERSED) VIAL ONE (13:45)
[2021-05-03] MEDS ORDERED: HYDROmorphone 2 MG/ML VIAL (DILAUDID) ONE (13:46)
[2021-05-03] MEDS ORDERED: MIDAZOLAM 5 MG/5 ML (VERSED) VIAL IVP ONE (14:00)
[2021-05-03] MEDS ORDERED: HYDROmorphone 2 MG/ML VIAL (DILAUDID) IVP ONE (14:00)
--- NOTE | 2021-05-03 15:05 | OPERATIVE REPORT ---
DATE OF SERVICE: 04/30/2021 PREOPERATIVE DIAGNOSES: 1. COVID-19 respiratory failure. 2. Malnutrition. POSTOPERATIVE DIAGNOSES: 1. COVID-19 respiratory failure. 2. Malnutrition. PROCEDURES: 1. Bronchoscopy. 2. EGD. ANESTHESIA: General endotracheal tube. SURGEON: Cy Parisi DO ENTERTAINMENT CENTRE MANAGER: None. BLOOD LOSS: Scant. SPECIMENS: None. INDICATION FOR PROCEDURE: The patient is a 75-year-old male, who has had respiratory failure, has been on the vent and needs a trach and a bronchoscopy to check this out. First as well, he is going to need PEG tube placement and so he needs an EGD. FINDINGS: The patient had a bronchoscopy performed and then monitored the percutaneous tracheostomy as well as EGD and then a PEG tube placement. PROCEDURE NOTE: After informed consent was obtained, the patient was brought down to the operating room. He was in his bed. He was already intubated, placed a bronchoscopy, camera down with some lidocaine with epinephrine down the current ET tube, went down to the rose marie, could see right and left. We went up into the right and looked at the bronchials, in the upper, middle and lower lobes and then pulled back and looked in the left, there was some mild plugging. This was suctioned out mucous plugging, but otherwise the bronchials looked normal. At this point, then pulled back into the tube and watched Dr. Molina get a needle in, could see the needle, pulled the ET tube back, but continued to leave the bronchoscopy camera in and then watched him perform the percutaneous trach to make sure it continues to go into the trachea and then pulled back and could see it was below the vocal cords. At this point, then switched cameras and placed an EGD camera down the mouth through the esophagus into the stomach, noted some mild gastritis and some changes I think from the NG tube, insufflated the stomach with air, so that Dr. Molina could visualize and try to get the light up to the abdominal wall. He then prepped and draped and did his portion. I watched as the needle came into the stomach. I was able to then grasp the catheter and then grasped the wire and then pulled the wire all the way out. This wire was then attached to the PEG tube and then the PEG tube was pulled down through this mouth into the esophagus and into the stomach. I followed this down with the EGD camera, watched it go into the stomach and was tight, but not too tight on the stomach wall, easily could move it around, twisted at this point then suctioned all the air out of the stomach and pulled the scope up the esophagus and out the mouth. Dr. Molina did his portion of the procedure. The patient tolerated the procedure. Sponge, instrument and needle count correct at the end of the case. Job ID: [id number] DocumentID: [id number] Dictated Date: 05/03/2021 13:14:05 Oil Well Perforator Operator Date: 05/03/2021 15:05:02 Dictated By: CY PARISI DO
[2021-05-03] MEDS: 1/2 NS IV SOLUTION 1,000 ML IV SCH (18:39)
[2021-05-03] MEDS: LINEZOLID IVPB 300 ML IV SCH (20:10)
[2021-05-03] MEDS: AtorvaSTATin TABLET 10 MG TABLET PO SCH (20:10)
[2021-05-04] VITALS (18 sets, daily range): BP systolic 88–126; BP diastolic 59–99
[2021-05-04] MEDS: RT-ALBUTEROL SULF 2.5 MG/3 ML PRE-MIX VIAL INH SCH ×4 (02:00→14:50)
[2021-05-04] MEDS: MIDAZOLAM 2 MG/2 ML (VERSED) VIAL IVP PRN (04:26)
[2021-05-04] MEDS: ALPRAZolam 0.25 MG (XANAX) TAB PO PRN ×2 (04:27→13:38)
[2021-05-04] MEDS: PHENYLEPHRINE DOUBLE STRENGTH 20MG/ 250 ML IV SCH ×4 (04:34→13:42)
[2021-05-04 04:37] LABS: BASOPHILS # (AUTO) 0.1 10^3/uL (0.0-0.1); BASOPHILS % (AUTO) 1 % (0-10); EOSINOPHILS # (AUTO) 0.2 10^3/uL (0.0-0.3); EOSINOPHILS % (AUTO) 1 % (0-10); HEMATOCRIT 39 % (40-54); HEMOGLOBIN 12.9 g/dL (13.3-17.7); LYMPHOCYTES # (AUTO) 1.1 10^3/uL (1.0-4.0); LYMPHOCYTES % (AUTO) 9 % (12-44); MEAN CORPUSCULAR HEMOGLOBIN 31 pg (25-34); MEAN CORPUSCULAR HGB CONC 33 g/dL (32-36); MEAN CORPUSCULAR VOLUME 93 fL (80-99); MEAN PLATELET VOLUME 9.4 fL (9.0-12.2); MONOCYTES # (AUTO) 0.7 10^3/uL (0.0-1.0); MONOCYTES % (AUTO) 6 % (0-12); NEUTROPHILS # (AUTO) 9.9 10^3/uL (1.8-7.8); NEUTROPHILS % (AUTO) 82 % (42-75); PLATELET COUNT 547 10^3/uL (130-400); WHITE BLOOD COUNT 12.1 10^3/uL (4.3-11.0)
[2021-05-04] MEDS: fentaNYL DRIP PRE-MIX 250 ML IV SCH (04:42)
[2021-05-04] MEDS: ACETAMINOPHEN 500 MG TAB (TYLENOL) PO PRN (04:42)
[2021-05-04 05:00] LABS: ALBUMIN 1.9 GM/DL (3.2-4.5); BILIRUBIN,TOTAL 0.4 MG/DL (0.1-1.0); CALCIUM 7.8 MG/DL (8.5-10.1); CREATININE SERUM 0.53 MG/DL (0.60-1.30); MAGNESIUM 1.9 MG/DL (1.6-2.4); PHOSPHORUS 1.8 MG/DL (2.3-4.7)
[2021-05-04 05:04] LABS: ABG BASE EXCESS 3.7 MMOL/L (-2.5-2.5); ABG OXYGEN SATURATION 94 % (94-100); ABG PCO2 37 MMHG (35-45); ABG PH 7.48 (7.37-7.43); ABG PO2 63 MMHG (79-93); ABG TCO2 28.2 MMOL/L (21.0-31.0); ALLENS TEST YES-POS
[2021-05-04 05:05] LABS: INSPIRED O2 45%; PATIENT TEMP 37.4; VENTILATOR YES
[2021-05-04] MEDS: POTASSIUM CL 10MEQ/50ML IVPB 50 ML IV SCH (05:08)
[2021-05-04] MEDS: inSUlin ASPART (NovoLOG) 1 UNIT/0.01 ML (CHARGE PER UNIT) SQ SCH ×2 (05:09→12:57)
[2021-05-04] MEDS: KCL 20 MEQ TAB (K-DUR) PO SCH (05:09)
[2021-05-04] MEDS: MAGNESIUM 1 GM/100 ML IVPB 100 ML IV SCH (05:09)
[2021-05-04] MEDS: ANIDULAFUNGIN INJECTION 100 MG in NS (IVPB) 100 ML IV SCH (08:33)
[2021-05-04] MEDS: LINEZOLID IVPB 300 ML IV SCH (08:33)
[2021-05-04] MEDS: PANTOPRAZOLE 40 MG (PROTONIX) VIAL IV SCH (08:33)
[2021-05-04] MEDS: MEROPENEM 1,000 MG in WATER (STERILE) FOR INJECTION 20 ML IV SCH (08:33)
[2021-05-04] MEDS: APIXABAN 5 MG (ELIQUIS) TABLET PO SCH (08:33)
[2021-05-04] MEDS: DexMEDEtomidine 250 ML DRIP 250 ML IV SCH (08:59)
--- NOTE | 2021-05-04 09:59 | Progress Note - Hospitalist ---
Subjective HPI/CC On Admission Date Seen by Provider: May 04, 2021 Saud Boston is a 75 year old male with PMH HLD who presented with shortness of breath. He was reportedly diagnosed with COVID three weeks ago. He had been doing ok until a few days ago when he started getting short of breath. He has had fever and cough. He denies chest pain. He denies nausea and vomiting. He denies diarrhea. He would be ok with being on the ventilator if needed. When asked about code status, he says, "Just try for one round and then let me go. Focused Exam Time of Focused Exam: 07:15 Objective Exam Vital Signs Vital Signs Date Time Temp Pulse Resp B/P (MAP) Pulse Ox O2 Delivery O2 Flow Rate FiO2 05/04/21 10:00 38.0 61 23 119/81 (94) 94 Mechanical Ventilator 45.00 05/04/21 08:15 45 Capillary Refill : Less Than 3 Seconds Results/Procedures Lab Laboratory Tests 05/04/21 04:10 Patient resulted labs reviewed. Imaging: Reviewed Imaging Report Assessment/Plan Assessment and Plan Assess & Plan/Chief Complaint Assessment: Acute hypoxic respiratory failure due to COVID-19 pneumonia ventilator dependent Plan: Supportive care Critically ill Vent management appreciated Prognosis guarded 04/18/2021: Supportive care Prognosis guarded Critical Care Ventilator Management COTY SHIPMAN DO May 04, 2021 09:59
[2021-05-04] MEDS ORDERED: DOCUSATE SODIUM 10 MG/ML 10 ML UDC (COLACE) PO PRN (10:15)
--- NOTE | 2021-05-04 10:15 | Tele-ICU Progress Note ---
Subjective Date Seen by a Provider: May 04, 2021 Time Seen by a Provider: 10:15 Sepsis Event Evaluation Height, Weight, BMI Height: '" Weight: lbs. oz. kg; 21.43 BMI Method: Focused Exam Time of Focused Exam: 07:15 Exam Exam Patient acknowledged, consented, and participated in this virtual visit which was conducted using real time audio/video Vital Signs Date Time Temp Pulse Resp B/P (MAP) Pulse Ox O2 Delivery O2 Flow Rate FiO2 05/04/21 10:00 38.0 61 23 119/81 (94) 94 Mechanical Ventilator 45.00 05/04/21 09:00 38.3 93 26 92/64 (73) 91 Mechanical Ventilator 45.00 05/04/21 08:59 84 79/57 05/04/21 08:15 94 Mechanical Ventilator 45 05/04/21 08:00 38.6 65 23 118/88 (98) 96 Mechanical Ventilator 45.00 05/04/21 07:00 58 22 96 45 05/04/21 07:00 38.7 65 17 103/83 (90) 96 Mechanical Ventilator 45.00 05/04/21 06:43 67 05/04/21 06:00 38.3 78 28 117/99 (105) 93 Mechanical Ventilator 45.00 05/04/21 05:52 Mechanical Ventilator 45.00 05/04/21 05:15 37.8 05/04/21 05:11 152 43 87 05/04/21 05:00 37.7 76 31 103/76 (85) 92 Mechanical Ventilator 55.00 05/04/21 04:42 37.8 05/04/21 04:34 84/68 05/04/21 04:30 Mechanical Ventilator 55.00 05/04/21 04:00 37.3 105 18 112/82 (92) 89 Mechanical Ventilator 45.00 05/04/21 04:00 93 Mechanical Ventilator 45 05/04/21 03:00 37.0 65 20 114/76 (89) 93 Mechanical Ventilator 45.00 05/04/21 02:08 93 45 05/04/21 02:00 64 19 92 45 05/04/21 02:00 37.0 60 18 126/79 (95) 91 Mechanical Ventilator 45.00 05/04/21 01:00 52 05/04/21 01:00 36.9 52 17 118/69 (85) 94 Mechanical Ventilator 45.00 05/04/21 00:00 94 Mechanical Ventilator 45 05/04/21 00:00 36.9 60 16 116/79 (91) 94 Mechanical Ventilator 45.00 05/03/21 23:04 37.1 70 17 90/54 (66) 92 Mechanical Ventilator 45.00 05/03/21 22:59 91/52 05/03/21 22:58 Mechanical Ventilator 45.00 05/03/21 22:19 Mechanical Ventilator 40.00 05/03/21 22:00 37.1 67 14 122/86 (98) 97 Mechanical Ventilator 60.00 05/03/21 21:17 58 23 96 60 05/03/21 21:00 37.2 56 16 127/88 (99) 96 Mechanical Ventilator 60.00 05/03/21 20:30 37.4 65 16 108/86 (91) 96 Mechanical Ventilator 60.00 05/03/21 20:00 96 Mechanical Ventilator 60 05/03/21 19:09 37.6 05/03/21 19:00 95 05/03/21 19:00 Mechanical Ventilator 60.00 05/03/21 19:00 37.7 95 16 90/64 (73) 99 Mechanical Ventilator 60.00 05/03/21 18:41 80 118/86 05/03/21 18:21 55 23 98 100 05/03/21 18:00 37.8 60 14 116/73 (87) 98 Mechanical Ventilator 100.00 05/03/21 17:00 38.0 122 87 122/87 (99) 97 Mechanical Ventilator 100.00 05/03/21 16:00 38.2 67 14 115/81 (92) 97 Mechanical Ventilator 100.00 05/03/21 16:00 97 Mechanical Ventilator 100 05/03/21 15:00 38.5 93 62 93/62 (72) 96 Mechanical Ventilator 100.00 05/03/21 14:35 Mechanical Ventilator 100.00 05/03/21 14:29 107 78/51 05/03/21 14:25 94 100 05/03/21 14:11 122 23 97 80 05/03/21 14:00 38.3 134 19 93/75 (81) 96 Mechanical Ventilator 60.00 05/03/21 13:20 117 137/97 05/03/21 13:00 37.7 121 26 118/83 (95) 92 Mechanical Ventilator 60.00 05/03/21 12:23 114 05/03/21 12:07 Mechanical Ventilator 60.00 05/03/21 12:00 37.5 105 23 115/80 (92) 92 Mechanical Ventilator 40.00 05/03/21 12:00 94 Mechanical Ventilator 40 05/03/21 11:01 104 20 91 40 05/03/21 11:00 37.3 90 19 94/68 (77) 90 Mechanical Ventilator 40.00 I & O 05/04/21 07:00 Intake Total 3677 ml Output Total 5225 ml Balance -1548 ml Height & Weight Height: '" Weight: lbs. oz. kg; 21.43 BMI Method: General Appearance: WD/WN, Chronically ill, Other (Sedated and intubated) Neck: Normal Inspection, Supple Respiratory: No Accessory Muscle Use, Decreased Breath Sounds Cardiovascular: Regular Rate, Rhythm, No Gallop, No Murmur, Normal Peripheral Pulses, Irregularly Irregular, Other (bilateral pedal edema and edema in the hands. Feet are cold to the touch. LE Pulses not palpable due to edema. Radial pulses intact) Capillary Refill: Less Than 3 Seconds Peripheral Pulses: 1+ Dorsalis Pedis (R), 1+ Left Dors-Pedis (L), 1+ Radial Pulses (L) Gastrointestinal: soft; No distended Extremity: Normal Capillary Refill, Swelling Neurologic/Psychiatric: No Alert, No Oriented x3; Other (sedated, no purposeful movements) Skin: Normal Color, Warm/Dry; No Rash (no rash to chest, abdomen, thighs, neck, or face.) Results Lab Laboratory Tests 05/03/21 04:15 05/04/21 04:10 Assessment/Plan Assessment/Plan (Tele-ICU Physician , Progress Note ) Available chart/ vitals / labs / Images reviewed Video assessment done using teleICU camera, rest of exam as per RN Discussed with RN , EXAM PER RN Events overnight : . more hypotensive FEBRILE 38.1 I/O = neg 1000 Drips: amelia 25 Pressors: off 04/19 hemodynamically stable Sedation gtt: ( RASS -1 ) fentanyl 50 versed d OFF - precedex on /off NOT follow commands VENT SETTINGS and ABG reviewed Consultants: cards Hospital course: 04/11 - Vapotherm at 35 L and 85% 9/7 = to ICU , BiPAP 22/05 100% -> failed -> INTUBATED , peep 16 100% 04/14 - amelia/vaso , WBC 32 , AC 28 550 +12 55% 04/15 - hb ? 8.4 70 % +8 04/19 - AC 26 600 +16 70 % 04/20- AC 26 600 +12 50 % , NEW FEVER , possible aspiration , OFF pressors 04/22 - CTchest - bilat effusions 4 cm , infiltrtes L>R 04/26 - SBT 05/11 04/27 - started on merrem and antifungal 04/29 - amelia 75 04/10- sputum cx = + PSA, VRE 04/30/2021: PEG and trach A/P AHRF / ARDS due to severe COVID19 -intubated 04/13 - now on AC 18 600 +5 45% - Fio2 -- CTchest - bilat effusions 4 cm , infiltrtes L>R - sedation vaction follow commands , but inct cough - SBT 05/11 , elv WOB on 04/26 - to cont attempts Shock - OFF vasopressors -04/20- BACK ON LEVO 04/28 - now in AMELIA - ccortisol level 15 on pressors - miight need cosytropin test - follow [id number]/COVID-19 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 , 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 ) -Steroids IV - started 04/12- TAPERING 04/22- STOPPED 04/26 -Hypercoagulable state , DDIMER > 20 on 04/10 -> eliquis ( no evidence of large PE on CT 04/10 ) Suspected superimposed bact PNA ( week 3 of covid , legionella ab neg ) -empiric ceftriaxone 04/11 Cx sputum 04/13 post intubation - usual jack -NEW FEVER 04/20 - suspected aspiration even 04/20 -> was already on zosyn 04/16 ->04/21 STILL FEBRILE ,-04/22 CTchest - bilat effusions 4 cm , infiltrtes L>R , not suspected empyema or abscess by images - will repeat spum cx ( from still not reported ) , cx from LPICC and repeat UA 04/27 - started on merrem and antifungal 04/30 - added VANCO empirically , sputum cx sent = resulted + PSA and VRE 05/03 - stopped vanco - start linezolid A Fib of unknown duration (seen on admission on 04/11/21) - cards consulted - rate controlled - eliquis CODE Status - FULL , as per notes on H&P : " He would be ok with being on the ventilator if needed. When asked about code status, he says, "Just try for one round and then let me go." Lines : Left femrol line 04/13 removed 04/14 . PICC L arm 04/14 (Central Line Necessity Reviewed) Trotter: 04/13 OG: + Nutrition: TF - 04/20 - REglan ( KUB , WNL ) TOLERATES TF 04/21 - regaln to prn 04/27- TF PEG - tolerates , low Analgesia: Anxiety/ delirium VTE Prophylaxis: eliquis Stress Ulcer Prophylaxis: TF Glycemic Control: Plans in collaboration with bedside consultants and IM MDs. Discussed with RN to reach out if any questions or concerns A total of 38 minutes of critical care time was devoted to this patient today, required to treat and/or prevent further deterioration of critical care condition ( as above) . NNAMDI KRUSE MD May 04, 2021 10:15
--- NOTE | 2021-05-04 10:33 | Progress Note ---
Subjective Date Seen by a Provider: May 04, 2021 Time Seen by a Provider: 09:30 Focused Exam Time of Focused Exam: 07:15 Objective Exam Last Set of Vital Signs Vital Signs Date Time Temp Pulse Resp B/P (MAP) Pulse Ox O2 Delivery O2 Flow Rate FiO2 05/04/21 10:00 38.0 61 23 119/81 (94) 94 Mechanical Ventilator 45.00 05/04/21 08:15 45 Capillary Refill : Less Than 3 Seconds I&O Intake and Output 05/04/21 00:00 Intake Total 3814 ml Output Total 4925 ml Balance -1111 ml Intake Oral 0 ml IV Total 2117 ml Tube Feeding 1022 ml Other 675 ml Output Urine Total 4925 ml Results Lab Laboratory Tests 05/03/21 13:32: Glucometer 120H 05/03/21 17:15: Glucometer 106 05/03/21 22:57: Glucometer 162H 05/04/21 04:10: White Blood Count 12.1H, Red Blood Count 4.18L, Hemoglobin 12.9L, Hematocrit 39L , Mean Corpuscular Volume 93, Mean Corpuscular Hemoglobin 31, Mean Corpuscular Hemoglobin Concent 33, Red Cell Distribution Width 14.1, Platelet Count 547H, Mean Platelet Volume 9.4, Immature Granulocyte % (Auto) 1, Neutrophils (%) (Auto ) 82H, Lymphocytes (%) (Auto) 9L, Monocytes (%) (Auto) 6, Eosinophils (%) (Auto) 1, Basophils (%) (Auto) 1, Neutrophils # (Auto) 9.9H, Lymphocytes # (Auto) 1.1, Monocytes # (Auto) 0.7, Eosinophils # (Auto) 0.2, Basophils # (Auto) 0.1, Immature Granulocyte # (Auto) 0.1, Blood Gas Puncture Site RT RADIAL, Blood Gas Patient Temperature 37.4, Arterial Blood pH 7.48H, Arterial Blood Partial Pressure CO2 37, Arterial Blood Partial Pressure O2 63L, Arterial Blood HCO3 27, Arterial Blood Total CO2 28.2, Arterial Blood Oxygen Saturation 94, Arterial Blood Base Excess 3.7H, Aldo Test YES-POS, Blood Gas Ventilator Setting YES, Blood Gas Inspired Oxygen 45%, Sodium Level 142, Potassium Level 4.0, Chloride Level 108H, Carbon Dioxide Level 25, Anion Gap 9, Blood Urea Nitrogen 9, Creatinine 0.53L, Estimat Glomerular Filtration Rate 152, BUN/Creatinine Ratio 17, Glucose Level 120H, Calcium Level 7.8L, Corrected Calcium 9.5, Phosphorus Level 1.8L, Magnesium Level 1.9, Total Bilirubin 0.4, Aspartate Amino Transf (AST/SGOT) 38H, Alanine Aminotransferase (ALT/SGPT) 45, Alkaline Phosphatase 281H, Total Protein 5.0L, Albumin 1.9L Microbiology 04/30/21 MRSA Screen - Final, Complete MRSA not isolated 04/26/21 Blood Culture - Final, Complete No growth Assessment/Plan Assessment/Plan Assess & Plan/Chief Complaint Assessment: COVID-19 pneumonia Acute hypoxic respiratory failure Ventilator dependence Status post bacterial pneumonia Plan: Supportive care Ventilator management appreciated 04/25/2021: Spoke to Steven zamora trach and PEG may be needed and he agrees with plan Not weanable yet DC isolation 04/26/2021: Trach and PEG may be required Supportive care 04/27/2021: Supportive care Monitor closely 04/28/2021: Needs PEG and trach 04/29/21: Family not willing to consider DNR 04/30/2021: PEG and trach [place] 05/01/2021: No significant change PEG and trach maintained 05/02/2021: Maintain vent per trach Antibiotics Monitor fever 05/03/2021: [facility] eval for transfer Prognosis guarded COTY SHIPMAN DO May 04, 2021 10:33
[2021-05-04] MEDS: 1/2 NS IV SOLUTION 1,000 ML IV SCH (13:43)
[2021-05-04] MEDS ORDERED: LORA2VIA3 IVP (13:50)
[2021-05-04] MEDS ORDERED: APIX5TAB PO (13:50)
[2021-05-04] MEDS ORDERED: PROP10VI48 IV (13:50)
[2021-05-04] MEDS ORDERED: METO5VIA3 IVP (13:50)
--- NOTE | 2021-05-04 13:50 | Discharge Summary ---
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 History of atrial fibrillation maintained on anticoagulation Recent bradycardia no pacemaker required Multiple rounds of bacterial pneumonia with presumed fungal pneumonia Discharge Summary Discharge Physical Examination Allergies: Coded Allergies: No Known Drug Allergies (Unverified , 03/11/11) Vitals & I&Os Vital Signs Date Time Temp Pulse Resp B/P (MAP) Pulse Ox O2 Delivery O2 Flow Rate FiO2 05/04/21 15:00 37.0 58 21 122/71 (88) 96 Mechanical Ventilator 45.00 05/04/21 14:50 45 General Appearance: Other (Sedated and intubated) Respiratory: Other (Coarse breath sounds) Cardiovascular: Regular Rate Hospital Course Was the Problem List Reviewed?: Yes Patient had a lengthy hospital stay for 25 days after he was admitted due to COVID-19 pneumonia and acute hypoxic respiratory failure. He had received 1 dose of the vaccine then contracted COVID-19 pneumonia. He failed BiPAP and Vapotherm and required intubation. He had multiple episodes of bacterial pneumonia requiring antibiotics. Fever continued. Augie-Synephrine maintained for blood pressure support. Multiple conversations with family occurred during the hospital stay. He remained full code. PEG tube and trach placed after 2- 1/2 weeks of intubation. Had episode of bradycardia no pacemaker required. Patient maintained on anticoagulation due to history of atrial fibrillation and high risk for thrombosis from COVID-19. Overall he stabilized but prognosis remained poor since he was not able to be weaned and he was accepted to [facility]. Labs (last 24 hrs) Laboratory Tests 04/10/21 14:45: White Blood Count 15.5H, Red Blood Count 4.76, Hemoglobin 14.8, Hematocrit 44, Mean Corpuscular Volume 91, Mean Corpuscular Hemoglobin 31, Mean Corpuscular Hemoglobin Concent 34, Red Cell Distribution Width 13.7, Platelet Count 312, Mean Platelet Volume 9.9, Immature Granulocyte % (Auto) 2, Neutrophils (%) (Auto) 91H, Lymphocytes (%) (Auto) 3L, Monocytes (%) (Auto) 5, Eosinophils (%) (Auto) 0, Basophils (%) (Auto) 0, Neutrophils # (Auto) 14.1H, Lymphocytes # (Auto) 0.4L, Monocytes # (Auto) 0.7, Eosinophils # (Auto) 0.0, Basophils # (Auto) 0.0, Immature Granulocyte # (Auto) 0.2H, Neutrophils % (Manual) 94, Lymp hocytes % (Manual) 4, Monocytes % (Manual) 2, D-Dimer > 20.00H, Sodium Level 143, Potassium Level 3.3L, Chloride Level 111H, Carbon Dioxide Level 20L, Anion Gap 12, Blood Urea Nitrogen 44H, Creatinine 1.35H, Estimat Glomerular Filtration Rate 52, BUN/Creatinine Ratio 33, Glucose Level 170H, Lactic Acid Level 1.79, Calcium Level 8.1L, Corrected Calcium 9.1, Total Bilirubin 1.0, Aspartate Amino Transf (AST/SGOT) 45H, Alanine Aminotransferase (ALT/SGPT) 57H, Alkaline Phosphatase 130, Troponin I < 0.30, C-Reactive Protein 19.04H, Pro-B-Type Natriuretic Peptide 1797.0H, Total Protein 5.9L, Albumin 2.7L, Procalcitonin 0.19H 04/10/21 18:33: Lab Scanned Report Referred Lab Report 04/11/21 05:15: White Blood Count 12.2H, Red Blood Count 4.69, Hemoglobin 14.7, Hematocrit 45, Mean Corpuscular Volume 95, Mean Corpuscular Hemoglobin 31, Mean Corpuscular Hemoglobin Concent 33, Red Cell Distribution Width 13.9, Platelet Count 300, Mean Platelet Volume 10.0, Immature Granulocyte % (Auto) 1, Neutrophils (%) (Auto) 91H, Lymphocytes (%) (Auto) 4L, Monocytes (%) (Auto) 3, Eosinophils (%) (Auto) 0, Basophils (%) (Auto) 0, Neutrophils # (Auto) 11.2H, Lymphocytes # (Auto) 0.5L, Monocytes # (Auto) 0.4, Eosinophils # (Auto) 0.0, Basophils # (Auto) 0.0, Immature Granulocyte # (Auto) 0.1, Sodium Level 145, Potassium Level 3.9, Chloride Level 113H, Carbon Dioxide Level 20L, Anion Gap 12, Blood Urea Nitrogen 34H, Creatinine 1.00, Estimat Glomerular Filtration Rate 73, BUN/Creatinine Ratio 34, Glucose Level 127H, Calcium Level 7.9L, Procalcitonin 0.12H 04/13/21 05:30: White Blood Count 18.7H, Red Blood Count 4.31, Hemoglobin 13.3, Hematocrit 41, Mean Corpuscular Volume 94, Mean Corpuscular Hemoglobin 31, Mean Corpuscular Hemoglobin Concent 33, Red Cell Distribution Width 13.8, Platelet Count 279, Mean Platelet Volume 9.8, Immature Granulocyte % (Auto) 1, Neutrophils (%) (Auto) 93H, Lymphocytes (%) (Auto) 3L, Monocytes (%) (Auto) 3, Eosinophils (%) (Auto) 0, Basophils (%) (Auto) 0, Neutrophils # (Auto) 17.4H, Lymphocytes # (Auto) 0.5L, Monocytes # (Auto) 0.6, Eosinophils # (Auto) 0.0, Basophils # (Auto) 0.0, Immature Granulocyte # (Auto) 0.2H, Sodium Level 143, Potassium Level 4.1, Chloride Level 114H, Carbon Dioxide Level 21, Anion Gap 8, Blood Urea Nitrogen 18, Creatinine 0.82, Estimat Glomerular Filtration Rate 92, BUN/Creatinine Ratio 22, Glucose Level 86, Calcium Level 7.6L, Corrected Calcium 8.8, Total Bilirubin 1.0, Aspartate Amino Transf (AST/SGOT) 75H, Alanine Aminotransferase (ALT/SGPT) 92H, Alkaline Phosphatase 151H, Total Protein 5.0L, Albumin 2.5L 04/13/21 06:50: Blood Gas Puncture Site RT RAD, Blood Gas Patient Temperature 37.2, Arterial Blood pH 7.44H, Arterial Blood Partial Pressure CO2 32L, Arterial Blood Partial Pressure O2 87, Arterial Blood HCO3 22L, Arterial Blood Total CO2 22.5, Arterial Blood Oxygen Saturation 98, Arterial Blood Base Excess -2.0, Aldo Test YES-POS, Blood Gas Ventilator Setting NO, Blood Gas Inspired Oxygen 100% 04/13/21 11:39: Glucometer 92 04/13/21 17:15: Triglycerides Level 89 04/13/21 19:28: Glucometer 92 04/13/21 21:10: Blood Gas Puncture Site RIGHT RADIAL, Blood Gas Patient Temperature 36.8, Arterial Blood pH 7.28*L, Arterial Blood Partial Pressure CO2 48H, Arterial Blood Partial Pressure O2 74L, Arterial Blood HCO3 22L, Arterial Blood Total CO2 23.3, Arterial Blood Oxygen Saturation 94, Arterial Blood Base Excess -3.9L, Aldo Test YES-POS, Blood Gas Ventilator Setting YES, Blood Gas Inspired Oxygen 100% 04/13/21 23:38: Glucometer 93 04/14/21 01:25: Blood Gas Puncture Site RIGHT RADIAL, Blood Gas Patient Temperature 36.8, Arterial Blood pH 7.35L, Arterial Blood Partial Pressure CO2 39, Arterial Blood Partial Pressure O2 105H, Arterial Blood HCO3 20L, Arterial Blood Total CO2 21.5, Arterial Blood Oxygen Saturation 98, Arterial Blood Base Excess -4.5L, Aldo Test YES-POS, Blood Gas Ventilator Setting YES, Blood Gas Inspired Oxygen 90% 04/14/21 01:30: White Blood Count 32.9*H, Red Blood Count 4.81, Hemoglobin 14.9, Hematocrit 46, Mean Corpuscular Volume 96, Mean Corpuscular Hemoglobin 31, Mean Corpuscular Hemoglobin Concent 32, Red Cell Distribution Width 14.3, Platelet Count 329, Mean Platelet Volume 9.7, Immature Granulocyte % (Auto) 1, Neutrophils (%) (Auto) 94H, Lymphocytes (%) (Auto) 2L, Monocytes (%) (Auto) 3, Eosinophils (%) (Auto) 0, Basophils (%) (Auto) 0, Neutrophils # (Auto) 31.0H, Lymphocytes # (Auto) 0.5L, Monocytes # (Auto) 1.0, Eosinophils # (Auto) 0.0, Basophils # (Auto) 0.1, Immature Granulocyte # (Auto) 0.4H, Neutrophils % (Manual) 94, Lymphocytes % (Manual) 1, Monocytes % (Manual) 2, Band Neutrophils 3, Crenated Cell MARKED, Sodium Level 145, Potassium Level 4.6, Chloride Level 113H, Carbon Dioxide Level 18L, Anion Gap 14, Blood Urea Nitrogen 23H, Creatinine 1.01, Estimat Glomerular Filtration Rate 72, BUN/Creatinine Ratio 23, Glucose Level 100, Calcium Level 8.0L, Magnesium Level 2.3 04/14/21 05:05: Blood Gas Puncture Site RIGHT RADIAL, Blood Gas Patient Temperature 36.3, Ar terial Blood pH 7.31*L, Arterial Blood Partial Pressure CO2 39, Arterial Blood Partial Pressure O2 78L, Arterial Blood HCO3 19L, Arterial Blood Total CO2 20.5L , Arterial Blood Oxygen Saturation 96, Arterial Blood Base Excess -6.1L, Aldo Test YES-POS, Blood Gas Ventilator Setting YES, Blood Gas Inspired Oxygen 80% 04/14/21 23:38: Glucometer 160H 04/15/21 03:40: Blood Gas Puncture Site ARTLINE, Blood Gas Patient Temperature 37.1, Arterial Blood pH 7.41, Arterial Blood Partial Pressure CO2 35, Arterial Blood Partial Pressure O2 61L, Arterial Blood HCO3 22L, Arterial Blood Total CO2 22.9, Arterial Blood Oxygen Saturation 90L, Arterial Blood Base Excess -2.1, Aldo Test ARTLINE, Blood Gas Ventilator Setting YES, Blood Gas Inspired Oxygen 55, Sodium Level 146H, Potassium Level 4.2, Chloride Level 111H, Carbon Dioxide Level 19L, Anion Gap 16H, Blood Urea Nitrogen 22H, Creatinine 0.50L, Estimat Glomerular Filtration Rate 163, BUN/Creatinine Ratio 44, Glucose Level 101, Calcium Level 7.5L, Magnesium Level 1.5L, Triglycerides Level 85 04/15/21 04:05: Urine Color YELLOW, Urine Clarity CLEAR, Urine pH 6.0, Urine Specific Marion >=1.030, Urine Protein 2+H, Urine Glucose (UA) NEGATIVE, Urine Ketones NEGATIVE, Urine Nitrite NEGATIVE, Urine Bilirubin 1+H, Urine Urobilinogen 0.2, Urine Leukocyte Esterase NEGATIVE, Urine RBC (Auto) 3+H, Urine RBC 10-25H, Urine WBC 0-2, Urine Squamous Epithelial Cells RARE, Urine Crystals NONE, Urine Bacteria TRACE, Urine Casts NONE, Urine Mucus NEGATIVE, Urine Culture Indicated NO, Urine Legionella pneumophilia Ag Negative 04/15/21 10:57: White Blood Count 20.1H, Red Blood Count 3.97L, Hemoglobin 12.4L, Hematocrit 37L , Mean Corpuscular Volume 94, Mean Corpuscular Hemoglobin 31, Mean Corpuscular Hemoglobin Concent 33, Red Cell Distribution Width 14.5, Platelet Count 284, Mean Platelet Volume 10.2, Prothrombin Time 15.3H, INR Comment 1.2, D-Dimer 4.31H 04/15/21 12:13: Glucometer 144H 04/15/21 18:38: Glucometer 164H 04/15/21 23:59: Glucometer 145H 04/16/21 04:10: White Blood Count 10.0, Red Blood Count 3.90L, Hemoglobin 12.0L, Hematocrit 37L, Mean Corpuscular Volume 95, Mean Corpuscular Hemoglobin 31, Mean Corpuscular Hemoglobin Concent 32, Red Cell Distribution Width 14.6H, Platelet Count 217, Mean Platelet Volume 9.9, Immature Granulocyte % (Auto) 1, Neutrophils (%) (Auto) 93H, Lymphocytes (%) (Auto) 3L, Monocytes (%) (Auto) 3, Eosinophils (%) (Auto) 0, Basophils (%) (Auto) 0, Neutrophils # (Auto) 9.3H, Lymphocytes # (Auto) 0.3L, Monocytes # (Auto) 0.3, Eosinophils # (Auto) 0.0, Basophils # (Auto) 0.0, Immature Granulocyte # (Auto) 0.1, Blood Gas Puncture Site RIGHT RADIAL, Blood Gas Patient Temperature 35.8, Arterial Blood pH 7.44H, Arterial Blood Partial Pressure CO2 36, Arterial Blood Partial Pressure O2 60L, Arterial Blood HCO3 24, Arterial Blood Total CO2 25.5, Arterial Blood Oxygen Saturation 92L, Arterial Blood Base Excess 0.4, Aldo Test YES-POS, Blood Gas Ventilator Setting YES, Blood Gas Inspired Oxygen 60%, Sodium Level 145, Potassium Level 3.8, Chloride Level 115H, Carbon Dioxide Level 22, Anion Gap 8, Blood Urea Nitrogen 27H, Creatinine 0.67, Estimat Glomerular Filtration Rate 116, BUN/Creatinine Ratio 40, Glucose Level 123H, Calcium Level 8.1L, Magnesium Level 2.6H 04/16/21 11:57: Glucometer 116H 04/16/21 17:47: Glucometer 108 04/16/21 23:40: Glucometer 100 04/17/21 02:40: White Blood Count 8.0, Red Blood Count 3.82L, Hemoglobin 11.8L, Hematocrit 36L, Mean Corpuscular Volume 95, Mean Corpuscular Hemoglobin 31, Mean Corpuscular Hemoglobin Concent 33, Red Cell Distribution Width 14.7H, Platelet Count 196, Mean Platelet Volume 10.0, Immature Granulocyte % (Auto) 1, Neutrophils (%) (Auto) 91H, Lymphocytes (%) (Auto) 4L, Monocytes (%) (Auto) 4, Eosinophils (%) (Auto) 0, Basophils (%) (Auto) 0, Neutrophils # (Auto) 7.3, Lymphocytes # (Auto) 0.3L, Monocytes # (Auto) 0.4, Eosinophils # (Auto) 0.0, Basophils # (Auto) 0.0, Immature Granulocyte # (Auto) 0.1, Blood Gas Puncture Site ARTLINE, Blood Gas Patient Temperature 35.2, Arterial Blood pH 7.50H, Arterial Blood Partial Pressure CO2 33L, Arterial Blood Partial Pressure O2 59L, Arterial Blood HCO3 26, Arterial Blood Total CO2 26.6, Arterial Blood Oxygen Saturation 94, Arterial Blood Base Excess 2.1, Aldo Test ARTLINE, Blood Gas Ventilator Setting YES, Blood Gas Inspired Oxygen 70%, Sodium Level 149H, Potassium Level 4.1, Chloride Level 115H, Carbon Dioxide Level 23, Anion Gap 11, Blood Urea Nitrogen 25H, Creatinine 0.62, Estimat Glomerular Filtration Rate 127, BUN/Creatinine Ratio 40, Glucose Level 95, Calcium Level 7.7L, Magnesium Level 2.4, Triglycerides Level 171H 04/17/21 11:36: Glucometer 98 04/17/21 17:50: Glucometer 120H 04/18/21 00:00: Glucometer 122H 04/18/21 03:49: White Blood Count 11.3H, Red Blood Count 4.05L, Hemoglobin 12.5L, Hematocrit 39L , Mean Corpuscular Volume 96, Mean Corpuscular Hemoglobin 31, Mean Corpuscular Hemoglobin Concent 32, Red Cell Distribution Width 15.1H, Platelet Count 208, Mean Platelet Volume 10.5, Immature Granulocyte % (Auto) 2, Neutrophils (%) (Auto) 87H, Lymphocytes (%) (Auto) 4L, Monocytes (%) (Auto) 6, Eosinophils (%) (Auto) 1, Basophils (%) (Auto) 0, Neutrophils # (Auto) 9.8H, Lymphocytes # (Auto) 0.5L, Monocytes # (Auto) 0.6, Eosinophils # (Auto) 0.2, Basophils # (Auto) 0.0, Immature Granulocyte # (Auto) 0.2H, Blood Gas Puncture Site ARTLINE, Blood Gas Patient Temperature 36.6, Arterial Blood pH 7.39, Arterial Blood Partial Pressure CO2 40, Arterial Blood Partial Pressure O2 88, Arterial Blood HCO3 24, Arterial Blood Total CO2 24.9, Arterial Blood Oxygen Saturation 96, Arterial Blood Base Excess -0.7, Aldo Test ARTLINE, Blood Gas Ventilator Setting YES, Blood Gas Inspired Oxygen 90%, Sodium Level 143, Potassium Level 4.3, Chloride Level 114H, Carbon Dioxide Level 21, Anion Gap 8, Blood Urea Nitrogen 28H, Creatinine 0.67, Estimat Glomerular Filtration Rate 116, BUN/Creatinine Ratio 42, Glucose Level 123H, Calcium Level 7.3L, Magnesium Level 2.4 04/18/21 11:50: Glucometer 127H 04/18/21 16:56: Glucometer 123H 04/18/21 23:14: Glucometer 112H 04/19/21 03:05: White Blood Count 9.5, Red Blood Count 3.67L, Hemoglobin 11.4L, Hematocrit 35L, Mean Corpuscular Volume 96, Mean Corpuscular Hemoglobin 31, Mean Corpuscular Hemoglobin Concent 32, Red Cell Distribution Width 14.8H, Platelet Count 138, Mean Platelet Volume 10.9, Immature Granulocyte % (Auto) 1, Neutrophils (%) (Auto) 89H, Lymphocytes (%) (Auto) 5L, Monocytes (%) (Auto) 4, Eosinophils (%) (Auto) 1, Basophils (%) (Auto) 0, Neutrophils # (Auto) 8.4H, Lymphocytes # (Auto) 0.4L, Monocytes # (Auto) 0.4, Eosinophils # (Auto) 0.1, Basophils # (Auto) 0.0, Immature Granulocyte # (Auto) 0.1, Percent Immature Platelet Fraction 4.1, Blood Gas Puncture Site ARTLINE, Blood Gas Patient Temperature 35.4, Arterial Blood pH 7.46H, Arterial Blood Partial Pressure CO2 36, Arterial Blood Partial Pressure O2 77L, Arterial Blood HCO3 25, Arterial Blood Total CO2 26.1, Arterial Blood Oxygen Saturation 95, Arterial Blood Base Excess 1.4, Aldo Test ARTLINE, Blood Gas Ventilator Setting YES, Blood Gas Inspired Oxygen 70%, Sodium Level 139, Potassium Level 4.1, Chloride Level 111H, Carbon Dioxide Level 20L, Anion Gap 8, Blood Urea Nitrogen 30H, Creatinine 0.60, Estimat Glomerular Filtration Rate 132, BUN/Creatinine Ratio 50, Glucose Level 115H, Calcium Level 7.3L, Magnesium Level 2.3 04/19/21 11:12: Glucometer 127H 04/19/21 17:41: Glucometer 98 04/19/21 23:38: Glucometer 83 04/20/21 02:05: White Blood Count 12.5H, Red Blood Count 3.59L, Hemoglobin 11.3L, Hematocrit 34L , Mean Corpuscular Volume 96, Mean Corpuscular Hemoglobin 32, Mean Corpuscular Hemoglobin Concent 33, Red Cell Distribution Width 14.6H, Platelet Count 170, Mean Platelet Volume 11.2, Immature Granulocyte % (Auto) 1, Neutrophils (%) (Auto) 89H, Lymphocytes (%) (Auto) 4L, Monocytes (%) (Auto) 4, Eosinophils (%) (Auto) 0, Basophils (%) (Auto) 0, Neutrophils # (Auto) 11.1H, Lymphocytes # (Auto) 0.6L, Monocytes # (Auto) 0.5, Eosinophils # (Auto) 0.1, Basophils # (Auto) 0.0, Immature Granulocyte # (Auto) 0.2H, Blood Gas Puncture Site RIGHT RADIAL, Blood Gas Patient Temperature 36.7, Arterial Blood pH 7.43, Arterial Blood Partial Pressure CO2 37, Arterial Blood Partial Pressure O2 85, Arterial Blood HCO3 24, Arterial Blood Total CO2 25.2, Arterial Blood Oxygen Saturation 97, Arterial Blood Base Excess 0.3, Aldo Test ARTLINE, Blood Gas Ventilator Setting YES, Blood Gas Inspired Oxygen 60%, Sodium Level 142, Potassium Level 4.1, Chloride Level 112H, Carbon Dioxide Level 21, Anion Gap 9, Blood Urea Nitrogen 21H, Creatinine 0.68, Estimat Glomerular Filtration Rate 114, BUN/Creatinine Ratio 31, Glucose Level 79, Calcium Level 7.6L, Magnesium Level 2.4 04/20/21 11:20: Glucometer 72 04/20/21 17:38: Glucometer 80 04/20/21 23:18: Glucometer 67L 04/21/21 04:17: White Blood Count 15.9H, Red Blood Count 4.45, Hemoglobin 13.8#, Hematocrit 42, Mean Corpuscular Volume 94, Mean Corpuscular Hemoglobin 31, Mean Corpuscular Hemoglobin Concent 33, Red Cell Distribution Width 14.6H, Platelet Count 260, Mean Platelet Volume 11.4, Immature Granulocyte % (Auto) 2, Neutrophils (%) (Auto) 85H, Lymphocytes (%) (Auto) 8L, Monocytes (%) (Auto) 5, Eosinophils (%) (Auto) 1, Basophils (%) (Auto) 0, Neutrophils # (Auto) 13.5H, Lymphocytes # (Auto) 1.3, Monocytes # (Auto) 0.7, Eosinophils # (Auto) 0.1, Basophils # (Auto) 0.0, Immature Granulocyte # (Auto) 0.2H, Blood Gas Puncture Site RT ARTLINE, Blood Gas Patient Temperature 36.5, Arterial Blood pH 7.41, Arterial Blood Partial Pressure CO2 36, Arterial Blood Partial Pressure O2 59L, Arterial Blood HCO3 22L, Arterial Blood Total CO2 23.5, Arterial Blood Oxygen Saturation 91L, Arterial Blood Base Excess -1.7, Aldo Test ARTLINE, Blood Gas Ventilator Setting YES, Blood Gas Inspired Oxygen 55%, Sodium Level 141, Potassium Level 3.8, Chloride Level 110H, Carbon Dioxide Level 20L, Anion Gap 11, Blood Urea Nitrogen 16, Creatinine 0.64, Estimat Glomerular Filtration Rate 122, BUN/Creatinine Ratio 25, Glucose Level 83, Calcium Level 8.1L, Magnesium Level 2.3 04/21/21 10:52: Glucometer 95 04/21/21 18:15: Glucometer 126H 04/21/21 23:44: Glucometer 91 04/22/21 04:15: White Blood Count 12.2H, Red Blood Count 4.12L, Hemoglobin 12.7L, Hematocrit 38L , Mean Corpuscular Volume 93, Mean Corpuscular Hemoglobin 31, Mean Corpuscular Hemoglobin Concent 33, Red Cell Distribution Width 14.6H, Platelet Count 286, Mean Platelet Volume 11.1, Immature Granulocyte % (Auto) 2, Neutrophils (%) (Auto) 87H, Lymphocytes (%) (Auto) 5L, Monocytes (%) (Auto) 5, Eosinophils (%) (Auto) 1, Basophils (%) (Auto) 0, Neutrophils # (Auto) 10.6H, Lymphocytes # (Auto) 0.6L, Monocytes # (Auto) 0.6, Eosinophils # (Auto) 0.1, Basophils # (Auto) 0.0, Immature Granulocyte # (Auto) 0.2H, Neutrophils % (Manual) 83, Lymphocytes % (Manual) 6, Monocytes % (Manual) 4, Band Neutrophils 3, Hypersegmented Neutrophils SLIGHT, Atypical Lymphocytes 3, Cindy Cells SLIGHT, Crenated Cell MODERATE, Blood Gas Puncture Site ARTLINE, Blood Gas Patient Temperature 37.5, Arterial Blood pH 7.46H, Arterial Blood Partial Pressure CO2 34L, Arterial Blood Partial Pressure O2 64L, Arterial Blood HCO3 24, Arterial Blood Total CO2 24.5, Arterial Blood Oxygen Saturation 92L, Arterial Blood Base Excess 0.1, Aldo Test POSITIVE, Blood Gas Ventilator Setting YES, Blood Gas Inspired Oxygen 50, Sodium Level 139, Potassium Level 3.9, Chloride Level 109H, Carbon Dioxide Level 20L, Anion Gap 10, Blood Urea Nitrogen 20H, Creatinine 0.64, Estimat Glomerular Filtration Rate 122, BUN/Creatinine Ratio 31, Glucose Level 94, Calcium Level 7.9L, Magnesium Level 2.2 04/22/21 11:22: Glucometer 123H 04/22/21 16:53: Glucometer 130H 04/22/21 23:06: Glucometer 102 04/23/21 03:25: White Blood Count 10.4, Red Blood Count 3.77L, Hemoglobin 11.7L, Hematocrit 35L, Mean Corpuscular Volume 92, Mean Corpuscular Hemoglobin 31, Mean Corpuscular Hemoglobin Concent 34, Red Cell Distribution Width 14.4, Platelet Count 306, Mean Platelet Volume 11.1, Immature Granulocyte % (Auto) 1, Neutrophils (%) (Auto) 87H, Lymphocytes (%) (Auto) 6L, Monocytes (%) (Auto) 6, Eosinophils (%) (Auto) 0, Basophils (%) (Auto) 0, Neutrophils # (Auto) 9.1H, Lymphocytes # (Auto) 0.6L, Monocytes # (Auto) 0.6, Eosinophils # (Auto) 0.0, Basophils # (Auto) 0.0, Immature Granulocyte # (Auto) 0.1, Blood Gas Puncture Site ART LINE, Blood Gas Patient Temperature 37.6, Arterial Blood pH 7.51H, Arterial Blood Partial Pressure CO2 28L, Arterial Blood Partial Pressure O2 53L, Arterial Blood HCO3 22L, Arterial Blood Total CO2 23.0, Arterial Blood Oxygen Saturation 89L, Arterial Blood Base Excess -0.4, Aldo Test ART LINE, Blood Gas Ventilator Setting YES, Blood Gas Inspired Oxygen 30%, Sodium Level 136, Potassium Level 3.8, Chloride Level 109H, Carbon Dioxide Level 20L, Anion Gap 7, Blood Urea Nitrogen 21H, Creatinine 0.58L, Estimat Glomerular Filtration Rate 137, BUN/Creatinine Ratio 36, Glucose Level 95, Calcium Level 7.5L, Magnesium Level 2.1, Total Bilirubin 0.8, Direct Bilirubin 0.6H, Indirect Bilirubin 0.2, Aspartate Amino Transf (AST/SGOT) 77H, Alanine Aminotransferase (ALT/SGPT) 89H, Alkaline Phosphatase 163H, Total Protein 4.8L, Albumin 2.0L, Procalcitonin 0.18H 04/23/21 12:08: Glucometer 127H 04/23/21 17:54: Glucometer 107 04/24/21 01:03: Glucometer 84 04/24/21 03:50: White Blood Count 10.5, Red Blood Count 3.89L, Hemoglobin 12.0L, Hematocrit 36L, Mean Corpuscular Volume 92, Mean Corpuscular Hemoglobin 31, Mean Corpuscular Hemoglobin Concent 33, Red Cell Distribution Width 14.4, Platelet Count 342, Mean Platelet Volume 10.7, Immature Granulocyte % (Auto) 2, Neutrophils (%) (Auto) 86H, Lymphocytes (%) (Auto) 6L, Monocytes (%) (Auto) 5, Eosinophils (%) (Auto) 1, Basophils (%) (Auto) 0, Neutrophils # (Auto) 9.0H, Lymphocytes # (Auto) 0.6L, Monocytes # (Auto) 0.5, Eosinophils # (Auto) 0.1, Basophils # (Auto) 0.0, Immature Granulocyte # (Auto) 0.2H, Blood Gas Puncture Site RIGHT ART LINE, Blood Gas Patient Temperature 37.7, Arterial Blood pH 7.52H, Arterial Blood Partial Pressure CO2 28L, Arterial Blood Partial Pressure O2 71L, Arterial Blood HCO3 22L, Arterial Blood Total CO2 22.9, Arterial Blood Oxygen Saturation 95, Arterial Blood Base Excess -0.4, Aldo Test ART LINE, Blood Gas Ventilator Setting YES, Blood Gas Inspired Oxygen 45%, Sodium Level 136, Potassium Level 3.6, Chloride Level 107, Carbon Dioxide Level 19L, Anion Gap 10, Blood Urea Nitrogen 19H, Creatinine 0.58L, Estimat Glomerular Filtration Rate 137, BUN/Creatinine Ratio 33, Glucose Level 94, Calcium Level 7.3L, Phosphorus Level 2.7, Magnesium Level 2.0 04/24/21 13:09: Glucometer 128H 04/24/21 17:10: Glucometer 109 04/24/21 23:25: Glucometer 96 04/25/21 03:45: White Blood Count 12.8H, Red Blood Count 4.03L, Hemoglobin 12.2L, Hematocrit 37L , Mean Corpuscular Volume 91, Mean Corpuscular Hemoglobin 30, Mean Corpuscular Hemoglobin Concent 33, Red Cell Distribution Width 14.2, Platelet Count 394, Mean Platelet Volume 10.6, Immature Granulocyte % (Auto) 2, Neutrophils (%) (Auto) 86H, Lymphocytes (%) (Auto) 6L, Monocytes (%) (Auto) 5, Eosinophils (%) (Auto) 1, Basophils (%) (Auto) 0, Neutrophils # (Auto) 11.1H, Lymphocytes # (Auto) 0.8L, Monocytes # (Auto) 0.7, Eosinophils # (Auto) 0.1, Basophils # (Auto) 0.0, Immature Granulocyte # (Auto) 0.2H, Blood Gas Puncture Site RIGHT RADIAL, Blood Gas Patient Temperature 37.5, Arterial Blood pH 7.52H, Arterial Blood Partial Pressure CO2 27L, Arterial Blood Partial Pressure O2 54L, Arterial Blood HCO3 22L, Arterial Blood Total CO2 22.9, Arterial Blood Oxygen Saturation 91L, Arterial Blood Base Excess -0.4, Aldo Test ART LINE, Blood Gas Ventilator Setting YES, Blood Gas Inspired Oxygen 35%, Sodium Level 138, Potassium Level 3.8, Chloride Level 109H, Carbon Dioxide Level 20L, Anion Gap 9, Blood Urea Nitrogen 18, Creatinine 0.59L, Estimat Glomerular Filtration Rate 134, BUN/Creatinine Ratio 31, Glucose Level 94, Calcium Level 7.6L, Corrected Calcium 9.2, Phosphorus Level 3.0, Magnesium Level 2.0, Total Bilirubin 0.6, Aspartate Amino Transf (AST/SGOT) 85H, Alanine Aminotransferase (ALT/SGPT) 137H, Alkaline Phosphatase 184H, Total Protein 4.8L, Albumin 2.0L, Triglycerides Level 119, Cholesterol Level 137, LDL Cholesterol Direct 109, VLDL Cholesterol 24, HDL Cholesterol 24L 04/25/21 12:21: Glucometer 109 04/25/21 17:30: Glucometer 107 04/26/21 00:22: Glucometer 85 04/26/21 03:58: White Blood Count 14.2H, Red Blood Count 3.88L, Hemoglobin 12.1L, Hematocrit 36L , Mean Corpuscular Volume 93, Mean Corpuscular Hemoglobin 31, Mean Corpuscular Hemoglobin Concent 34, Red Cell Distribution Width 14.5, Platelet Count 408H, Mean Platelet Volume 10.6, Immature Granulocyte % (Auto) 2, Neutrophils (%) (Auto) 87H, Lymphocytes (%) (Auto) 5L, Monocytes (%) (Auto) 5, Eosinophils (%) (Auto) 1, Basophils (%) (Auto) 0, Neutrophils # (Auto) 12.4H, Lymphocytes # (Auto) 0.7L, Monocytes # (Auto) 0.7, Eosinophils # (Auto) 0.1, Basophils # (Auto) 0.1, Immature Granulocyte # (Auto) 0.2H, Sodium Level 135, Potassium Level 3.6, Chloride Level 106, Carbon Dioxide Level 20L, Anion Gap 9, Blood Urea Nitrogen 15, Creatinine 0.59L, Estimat Glomerular Filtration Rate 134, BUN/Creatinine Ratio 25, Glucose Level 88, Calcium Level 7.1L, Corrected Calcium 8.8, Phosphorus Level 3.0, Magnesium Level 1.8, Total Bilirubin 0.6, Aspartate Amino Transf (AST/SGOT) 58H, Alanine Aminotransferase (ALT/SGPT) 112H, Alkaline Phosphatase 161H, Total Protein 4.7L, Albumin 1.9L 04/26/21 04:10: Blood Gas Puncture Site RIGHT ART LINE, Blood Gas Patient Temperature 37.8, Arterial Blood pH 7.47H, Arterial Blood Partial Pressure CO2 34L, Arterial Blood Partial Pressure O2 62L, Arterial Blood HCO3 24, Arterial Blood Total CO2 25.3, Arterial Blood Oxygen Saturation 91L, Arterial Blood Base Excess 1.2, Aldo Test ART LINE, Blood Gas Ventilator Setting YES, Blood Gas Inspired Oxygen 30% 04/26/21 12:16: Glucometer 121H 04/26/21 15:00: Urine Color YELLOW, Urine Clarity CLEAR, Urine pH 6.0, Urine Specific [place] 1.010L, Urine Protein NEGATIVE, Urine Glucose (UA) NEGATIVE, Urine Ketones NEGATIVE, Urine Nitrite NEGATIVE, Urine Bilirubin NEGATIVE, Urine Urobilinogen 0.2, Urine Leukocyte Esterase NEGATIVE, Urine RBC (Auto) TRACE-I, Urine RBC 2-5H , Urine WBC 0-2, Urine Crystals PRESENTH, Urine Amorphous Sediment FEW SOTERO URATESH, Urine Bacteria TRACE, Urine Casts NONE, Urine Mucus NEGATIVE, Urine Culture Indicated NO 04/26/21 17:31: Glucometer 103 04/27/21 03:02: White Blood Count 17.3H, Red Blood Count 4.14L, Hemoglobin 12.9L, Hematocrit 39L , Mean Corpuscular Volume 93, Mean Corpuscular Hemoglobin 31, Mean Corpuscular Hemoglobin Concent 34, Red Cell Distribution Width 14.4, Platelet Count 459H, Mean Platelet Volume 10.2, Immature Granulocyte % (Auto) 1, Neutrophils (%) (Auto) 88H, Lymphocytes (%) (Auto) 5L, Monocytes (%) (Auto) 4, Eosinophils (%) (Auto) 1, Basophils (%) (Auto) 0, Neutrophils # (Auto) 15.2H, Lymphocytes # (Auto) 0.9L, Monocytes # (Auto) 0.7, Eosinophils # (Auto) 0.1, Basophils # (Auto) 0.1, Immature Granulocyte # (Auto) 0.3H, Blood Gas Puncture Site ART LINE, Blood Gas Patient Temperature 37.8, Arterial Blood pH 7.45H, Arterial Blo od Partial Pressure CO2 37, Arterial Blood Partial Pressure O2 59L, Arterial Blood HCO3 25, Arterial Blood Total CO2 25.8, Arterial Blood Oxygen Saturation 91L, Arterial Blood Base Excess 1.2, Aldo Test ART LINE, Blood Gas Ventilator Setting YES, Blood Gas Inspired Oxygen 35%, Sodium Level 138, Potassium Level 4.0, Chloride Level 108H, Carbon Dioxide Level 22, Anion Gap 8, Blood Urea Nitrogen 15, Creatinine 0.58L, Estimat Glomerular Filtration Rate 137, BUN/Creatinine Ratio 26, Glucose Level 89, Calcium Level 7.7L, Corrected Calcium 9.2, Phosphorus Level 3.2, Magnesium Level 1.9, Total Bilirubin 0.6, Aspartate Amino Transf (AST/SGOT) 48H, Alanine Aminotransferase (ALT/SGPT) 113H, Alkaline Phosphatase 172H, Total Protein 5.1L, Albumin 2.1L 04/27/21 12:53: Glucometer 103 04/27/21 17:35: Glucometer 80 04/27/21 23:40: Glucometer 79 04/28/21 03:40: White Blood Count 12.1H, Red Blood Count 4.36, Hemoglobin 13.5, Hematocrit 41, Mean Corpuscular Volume 93, Mean Corpuscular Hemoglobin 31, Mean Corpuscular Hemoglobin Concent 33, Red Cell Distribution Width 14.4, Platelet Count 484H, Mean Platelet Volume 10.2, Immature Granulocyte % (Auto) 2, Neutrophils (%) (Auto) 82H, Lymphocytes (%) (Auto) 8L, Monocytes (%) (Auto) 5, Eosinophils (%) (Auto) 2, Basophils (%) (Auto) 1, Neutrophils # (Auto) 10.0H, Lymphocytes # (Auto) 1.0, Monocytes # (Auto) 0.6, Eosinophils # (Auto) 0.3, Basophils # (Auto) 0.1, Immature Granulocyte # (Auto) 0.2H, Blood Gas Puncture Site ART LINE, Blood Gas Patient Temperature 38.2, Arterial Blood pH 7.49H, Arterial Blood Partial Pressure CO2 33L, Arterial Blood Partial Pressure O2 61L, Arterial Blood HCO3 25, Arterial Blood Total CO2 25.5, Arterial Blood Oxygen Saturation 91L, Sis rial Blood Base Excess 1.6, Aldo Test ART LINE, Blood Gas Ventilator Setting YES, Blood Gas Inspired Oxygen 35%, Sodium Level 137, Potassium Level 4.1, Chloride Level 106, Carbon Dioxide Level 20L, Anion Gap 11, Blood Urea Nitrogen 14, Creatinine 0.60, Estimat Glomerular Filtration Rate 132, BUN/Creatinine Ratio 23, Glucose Level 89, Calcium Level 7.8L, Corrected Calcium 9.3, Phosphorus Level 3.1, Magnesium Level 1.9, Total Bilirubin 0.7, Aspartate Amino Transf (AST/SGOT) 46H, Alanine Aminotransferase (ALT/SGPT) 94H, Alkaline Phosphatase 202H, Total Protein 5.4L, Albumin 2.1L 04/28/21 12:30: Glucometer 101 04/28/21 18:00: Glucometer 89 04/29/21 03:55: White Blood Count 17.5H, Red Blood Count 4.09L, Hemoglobin 12.5L, Hematocrit 38L , Mean Corpuscular Volume 93, Mean Corpuscular Hemoglobin 31, Mean Corpuscular Hemoglobin Concent 33, Red Cell Distribution Width 14.2, Platelet Count 557H, Mean Platelet Volume 10.4, Immature Granulocyte % (Auto) 2, Neutrophils (%) (Auto) 88H, Lymphocytes (%) (Auto) 5L, Monocytes (%) (Auto) 5, Eosinophils (%) (Auto) 1, Basophils (%) (Auto) 1, Neutrophils # (Auto) 15.3H, Lymphocytes # (Auto) 0.9L, Monocytes # (Auto) 0.8, Eosinophils # (Auto) 0.1, Basophils # (Auto) 0.1, Immature Granulocyte # (Auto) 0.3H, Neutrophils % (Manual) 87, Lymphocytes % (Manual) 5, Monocytes % (Manual) 6, Eosinophils % (Manual) 1, Basophils % (Manual) 1, Blood Morphology Comment NORMAL, Blood Gas Puncture Site LFT RAD, Blood Gas Patient Temperature 38.1, Arterial Blood pH 7.46H, Arterial Blood Partial Pressure CO2 34L, Arterial Blood Partial Pressure O2 66L, Arterial Blood HCO3 23, Arterial Blood Total CO2 24.4, Arterial Blood Oxygen Saturation 93L, Arterial Blood Base Excess 0.3, Aldo Test POS, Blood Gas Ventilator Setting YES, Blood Gas Inspired Oxygen 30%, Sodium Level 139, Potassium Level 4.2, Chloride Level 106, Carbon Dioxide Level 24, Anion Gap 9, Blood Urea Nitrogen 15, Creatinine 0.65, Estimat Glomerular Filtration Rate 120, B UN/Creatinine Ratio 23, Glucose Level 95, Calcium Level 7.7L, Corrected Calcium 9.3, Phosphorus Level 3.2, Magnesium Level 1.9, Total Bilirubin 0.8, Aspartate Amino Transf (AST/SGOT) 52H, Alanine Aminotransferase (ALT/SGPT) 91H, Alkaline Phosphatase 201H, Total Protein 4.9L, Albumin 2.0L 04/29/21 11:24: Glucometer 104 04/29/21 15:02: Troponin I < 0.028 04/29/21 17:23: Glucometer 80 04/30/21 00:52: Glucometer 92 04/30/21 03:40: White Blood Count 15.3H, Red Blood Count 4.05L, Hemoglobin 12.6L, Hematocrit 38L , Mean Corpuscular Volume 94, Mean Corpuscular Hemoglobin 31, Mean Corpuscular Hemoglobin Concent 33, Red Cell Distribution Width 14.3, Platelet Count 559H, Mean Platelet Volume 10.0, Immature Granulocyte % (Auto) 1, Neutrophils (%) (Auto) 84H, Lymphocytes (%) (Auto) 7L, Monocytes (%) (Auto) 5, Eosinophils (%) (Auto) 1, Basophils (%) (Auto) 1, Neutrophils # (Auto) 12.9H, Lymphocytes # (Auto) 1.1, Monocytes # (Auto) 0.8, Eosinophils # (Auto) 0.2, Basophils # (Auto) 0.1, Immature Granulocyte # (Auto) 0.2H, Blood Gas Puncture Site RIGHT RADIAL, Blood Gas Patient Temperature 37.0, Arterial Blood pH 7.41, Arterial Blood Partial Pressure CO2 39, Arterial Blood Partial Pressure O2 64L, Arterial Blood HCO3 24, Arterial Blood Total CO2 24.9, Arterial Blood Oxygen Saturation 93L, Arterial Blood Base Excess -0.4, Aldo Test POSITIVE, Blood Gas Ventilator Setting YES, Blood Gas Inspired Oxygen 35, Sodium Level 138, Potassium Level 4.1, Chloride Level 107, Carbon Dioxide Level 22, Anion Gap 9, Blood Urea Nitrogen 15, Creatinine 0.62, Estimat Glomerular Filtration Rate 127, BUN/Creatinine Ratio 24, Glucose Level 105, Calcium Level 7.7L, Corrected Calcium 9.3, Phosphorus Level 3.0, Magnesium Level 2.0, Total Bilirubin 0.5, Aspartate Amino Transf (AST/SGOT) 32, Alanine Aminotransferase (ALT/SGPT) 62H, Alkaline Phosphatase 185H, Total Protein 5.0L, Albumin 2.0L 04/30/21 11:58: Glucometer 82 04/30/21 15:51: Glucometer 75 05/01/21 00:01: Glucometer 76 05/01/21 04:10: Blood Gas Puncture Site RIGHT RADIAL, Blood Gas Patient Temperature 37.7, Arterial Blood pH 7.45H, Arterial Blood Partial Pressure CO2 32L, Arterial Blood Partial Pressure O2 47L, Arterial Blood HCO3 23, Arterial Blood Total CO2 23.7, Arterial Blood Oxygen Saturation 87L, Arterial Blood Base Excess -1.0, Aldo Test POSITIVE, Blood Gas Ventilator Setting YES, Blood Gas Inspired Oxygen 35 05/01/21 04:20: White Blood Count 15.0H, Red Blood Count 4.17L, Hemoglobin 13.0L, Hematocrit 39L , Mean Corpuscular Volume 94, Mean Corpuscular Hemoglobin 31, Mean Corpuscular Hemoglobin Concent 33, Red Cell Distribution Width 14.4, Platelet Count 527H, Mean Platelet Volume 9.5, Immature Granulocyte % (Auto) 1, Neutrophils (%) (Auto) 91H, Lymphocytes (%) (Auto) 4L, Monocytes (%) (Auto) 3, Eosinophils (%) (Auto) 1, Basophils (%) (Auto) 1, Neutrophils # (Auto) 13.7H, Lymphocytes # (Auto) 0.6L, Monocytes # (Auto) 0.4, Eosinophils # (Auto) 0.1, Basophils # (Auto) 0.1, Immature Granulocyte # (Auto) 0.1, Sodium Level 139, Potassium Level 4.1, Chloride Level 108H, Carbon Dioxide Level 20L, Anion Gap 11, Blood Urea Nitrogen 15, Creatinine 0.62, Estimat Glomerular Filtration Rate 127, BUN/Creatinine Ratio 24, Glucose Level 75, Calcium Level 8.0L, Corrected Calcium 9.6, Phosphorus Level 2.6, Magnesium Level 1.9, Total Bilirubin 0.6, Aspartate Amino Transf (AST/SGOT) 27, Alanine Aminotransferase (ALT/SGPT) 46, Alkaline Phosphatase 171H, Total Protein 5.2L, Albumin 2.0L, Total Cortisol 15.8 05/01/21 10:59: Glucometer 65L 05/01/21 17:35: Glucometer 82 05/02/21 00:32: Glucometer 69L 05/02/21 05:00: Blood Gas Puncture Site RIGHT RADIAL, Blood Gas Patient Temperature 37.8, Arterial Blood pH 7.37, Arterial Blood Partial Pressure CO2 40, Arterial Blood Partial Pressure O2 81, Arterial Blood HCO3 23, Arterial Blood Total CO2 23.7, Arterial Blood Oxygen Saturation 96, Arterial Blood Base Excess -1.8, Aldo Test POSITIVE, Blood Gas Ventilator Setting YES, Blood Gas Inspired Oxygen 25 05/02/21 05:05: White Blood Count 9.6, Red Blood Count 4.15L, Hemoglobin 12.6L, Hematocrit 39L, Mean Corpuscular Volume 94, Mean Corpuscular Hemoglobin 30, Mean Corpuscular Hemoglobin Concent 32, Red Cell Distribution Width 14.2, Platelet Count 443H, Mean Platelet Volume 9.3, Immature Granulocyte % (Auto) 1, Neutrophils (%) (Auto) 86H, Lymphocytes (%) (Auto) 7L, Monocytes (%) (Auto) 5, Eosinophils (%) (Auto) 2, Basophils (%) (Auto) 1, Neutrophils # (Auto) 8.3H, Lymphocytes # (Auto) 0.6L, Monocytes # (Auto) 0.4, Eosinophils # (Auto) 0.1, Basophils # (Auto) 0.1, Immature Granulocyte # (Auto) 0.1, Sodium Level 137, Potassium Level 3.9, Chloride Level 106, Carbon Dioxide Level 21, Anion Gap 10, Blood Urea Nitrogen 10, Creatinine 0.57L, Estimat Glomerular Filtration Rate 140, BUN/Creatinine Ratio 18, Glucose Level 76, Calcium Level 7.6L, Corrected Calcium 9.4, Magnesium Level 1.7, Total Bilirubin 0.5, Aspartate Amino Transf (AST/SGOT) 33, Alanine Aminotransferase (ALT/SGPT) 43, Alkaline Phosphatase 149H, Total Protein 4.8L, Albumin 1.8L 05/02/21 08:41: Vancomycin Level Trough 18.7 05/02/21 12:38: Glucometer 98 05/02/21 17:20: Glucometer 102 05/03/21 01:55: Glucometer 104 05/03/21 04:15: White Blood Count 10.9, Red Blood Count 4.17L, Hemoglobin 12.9L, Hematocrit 39L, Mean Corpuscular Volume 95, Mean Corpuscular Hemoglobin 31, Mean Corpuscular Hemoglobin Concent 33, Red Cell Distribution Width 14.0, Platelet Count 538H, Mean Platelet Volume 9.1, Immature Granulocyte % (Auto) 1, Neutrophils (%) (Auto) 82H, Lymphocytes (%) (Auto) 9L, Monocytes (%) (Auto) 6, Eosinophils (%) (Auto) 2, Basophils (%) (Auto) 1, Neutrophils # (Auto) 9.0H, Lymphocytes # (Auto) 0.9L, Monocytes # (Auto) 0.6, Eosinophils # (Auto) 0.2, Basophils # (Auto) 0.1, Immature Granulocyte # (Auto) 0.1, Blood Gas Puncture Site RT RADIAL, Blood Gas Patient Temperature 37.5, Arterial Blood pH 7.38, Arterial Blood Partial Pressure CO2 45, Arterial Blood Partial Pressure O2 60L, Arterial Blood HCO3 26, Arterial Blood Total CO2 27.3, Arterial Blood Oxygen Saturation 91L, Arterial Blood Base Excess 1.4, Aldo Test YES-POS, Blood Gas Ventilator Setting YES, Blood Gas Inspired Oxygen 40%, Sodium Level 138, Potassium Level 3.9, Chloride Level 107, Carbon Dioxide Level 23, Anion Gap 8, Blood Urea Nitrogen 8, Creatinine 0.52L, Estimat Glomerular Filtration Rate 155, BUN/Creatinine Ratio 15, Glucose Level 109H, Calcium Level 7.8L, Corrected Calcium 9.5, Phosphorus Level 2.5, Magnesium Level 2.2, Total Bilirubin 0.4, Aspartate Amino Transf (AST/SGOT) 38H, Alanine Aminotransferase (ALT/SGPT) 48, Alkaline Phosphatase 215H, Total Protein 4.9L, Albumin 1.9L 05/03/21 13:32: Glucometer 120H 05/03/21 17:15: Glucometer 106 05/03/21 22:57: Glucometer 162H 05/04/21 04:10: White Blood Count 12.1H, Red Blood Count 4.18L, Hemoglobin 12.9L, Hematocrit 39L , Mean Corpuscular Volume 93, Mean Corpuscular Hemoglobin 31, Mean Corpuscular Hemoglobin Concent 33, Red Cell Distribution Width 14.1, Platelet Count 547H, Mean Platelet Volume 9.4, Immature Granulocyte % (Auto) 1, Neutrophils (%) (Auto) 82H, Lymphocytes (%) (Auto) 9L, Monocytes (%) (Auto) 6, Eosinophils (%) (Auto) 1, Basophils (%) (Auto) 1, Neutrophils # (Auto) 9.9H, Lymphocytes # (Auto) 1.1, Monocytes # (Auto) 0.7, Eosinophils # (Auto) 0.2, Basophils # (Auto) 0.1, Immature Granulocyte # (Auto) 0.1, Blood Gas Puncture Site RT RADIAL, Blood Gas Patient Temperature 37.4, Arterial Blood pH 7.48H, Arterial Blood Partial Pressure CO2 37, Arterial Blood Partial Pressure O2 63L, Arterial Blood HCO3 27, Arterial Blood Total CO2 28.2, Arterial Blood Oxygen Saturation 94, Arterial Blood Base Excess 3.7H, Aldo Test YES-POS, Blood Gas Ventilator Setting YES, Blood Gas Inspired Oxygen 45%, Sodium Level 142, Potassium Level 4.0, Chloride Level 108H, Carbon Dioxide Level 25, Anion Gap 9, Blood Urea Nitrogen 9, Creatinine 0.53L, Estimat Glomerular Filtration Rate 152, BUN/Creatinine Ratio 17, Glucose Level 120H, Calcium Level 7.8L, Corrected Calcium 9.5, Phosphorus Level 1.8L, Magnesium Level 1.9, Total Bilirubin 0.4, Aspartate Amino Transf (AST/SGOT) 38H, Alanine Aminotransferase (ALT/SGPT) 45, Alkaline Phosphatase 281H, Total Protein 5.0L, Albumin 1.9L 05/04/21 11:29: Glucometer 141H Microbiology 04/30/21 MRSA Screen - Final, Complete MRSA not isolated 04/26/21 Blood Culture - Final, Complete No growth Pending Labs Microbiology Date/Time Source Procedure Growth Status 04/30/21 11:15 Nasal MRSA Screen - Final MRSA not isolated Complete 04/30/21 08:15 Sputum Endotracheal Gram Stain - Final Resulted 04/30/21 08:15 Sputum Culture - Preliminary Pseudomonas aeruginosa Enterococcus faecium Resulted 04/26/21 15:00 Port Picc Blood Culture - Final No growth Complete 04/22/21 08:25 Port Central Line Blood Culture - Final No growth Complete 04/13/21 19:35 Sputum Endotracheal Gram Stain - Final Complete 04/13/21 19:35 Sputum Culture - Final Usual upper respiratory jack Complete Laboratory Tests 04/10/21 14:45: White Blood Count 15.5, Red Blood Count 4.76, Hemoglobin 14.8, Hematocrit 44, Mean Corpuscular Volume 91, Mean Corpuscular Hemoglobin 31, Mean Corpuscular Hemoglobin Concent 34, Red Cell Distribution Width 13.7, Platelet Count 312, Mean Platelet Volume 9.9, Immature Granulocyte % (Auto) 2, Neutrophils (%) (Auto) 91, Lymphocytes (%) (Auto) 3, Monocytes (%) (Auto) 5, Eosinophils (%) (Auto) 0, Basophils (%) (Auto) 0, Neutrophils # (Auto) 14.1, Lymphocytes # (Auto) 0.4, Monocytes # (Auto) 0.7, Eosinophils # (Auto) 0.0, Basophils # (Auto) 0.0, Immature Granulocyte # (Auto) 0.2, Neutrophils % (Manual) 94, Lymphocytes % (Manual) 4, Monocytes % (Manual) 2, D-Dimer > 20.00, Sodium Level 143, Potassium Level 3.3, Chloride Level 111, Carbon Dioxide Level 20, Anion Gap 12, Blood Urea Nitrogen 44, Creatinine 1.35, Estimat Glomerular Filtration Rate 52, BUN/Creatinine Ratio 33, Glucose Level 170, Lactic Acid Level 1.79, Calcium Level 8.1, Corrected Calcium 9.1, Total Bilirubin 1.0, Aspartate Amino Transf (AST/SGOT) 45, Alanine Aminotransferase (ALT/SGPT) 57, Alkaline Phosphatase 130, Troponin I < 0.30, C-Reactive Protein 19.04, Pro-B-Type Natriuretic Peptide 1797.0, Total Protein 5.9, Albumin 2.7, Procalcitonin 0.19 04/10/21 18:33: Lab Scanned Report Referred Lab Report 04/11/21 05:15: White Blood Count 12.2, Red Blood Count 4.69, Hemoglobin 14.7, Hematocrit 45, Mean Corpuscular Volume 95, Mean Corpuscular Hemoglobin 31, Mean Corpuscular Hemoglobin Concent 33, Red Cell Distribution Width 13.9, Platelet Count 300, Mean Platelet Volume 10.0, Immature Granulocyte % (Auto) 1, Neutrophils (%) (Auto) 91, Lymphocytes (%) (Auto) 4, Monocytes (%) (Auto) 3, Eosinophils (%) (Auto) 0, Basophils (%) (Auto) 0, Neutrophils # (Auto) 11.2, Lymphocytes # (Auto) 0.5, Monocytes # (Auto) 0.4, Eosinophils # (Auto) 0.0, Basophils # (Auto) 0.0, Immature Granulocyte # (Auto) 0.1, Sodium Level 145, Potassium Level 3.9, Chloride Level 113, Carbon Dioxide Level 20, Anion Gap 12, Blood Urea Nitrogen 34, Creatinine 1.00, Estimat Glomerular Filtration Rate 73, BUN/Creatinine Ratio 34, Glucose Level 127, Calcium Level 7.9, Procalcitonin 0.12 04/13/21 05:30: White Blood Count 18.7, Red Blood Count 4.31, Hemoglobin 13.3, Hematocrit 41, Mean Corpuscular Volume 94, Mean Corpuscular Hemoglobin 31, Mean Corpuscular Hemoglobin Concent 33, Red Cell Distribution Width 13.8, Platelet Count 279, Mean Platelet Volume 9.8, Immature Granulocyte % (Auto) 1, Neutrophils (%) (Auto) 93, Lymphocytes (%) (Auto) 3, Monocytes (%) (Auto) 3, Eosinophils (%) (Auto) 0, Basophils (%) (Auto) 0, Neutrophils # (Auto) 17.4, Lymphocytes # (Auto) 0.5, Monocytes # (Auto) 0.6, Eosinophils # (Auto) 0.0, Basophils # (Auto) 0.0, Immature Granulocyte # (Auto) 0.2, Sodium Level 143, Potassium Level 4.1, Chloride Level 114, Carbon Dioxide Level 21, Anion Gap 8, Blood Urea Nitrogen 18, Creatinine 0.82, Estimat Glomerular Filtration Rate 92, BUN/Creatinine Ratio 22, Glucose Level 86, Calcium Level 7.6, Corrected Calcium 8.8, Total Bilirubin 1.0, Aspartate Amino Transf (AST/SGOT) 75, Alanine Aminotransferase (ALT/SGPT) 92, Alkaline Phosphatase 151, Total Protein 5.0, Albumin 2.5 04/13/21 06:50: Blood Gas Puncture Site RT RAD, Blood Gas Patient Temperature 37.2, Arterial Blood pH 7.44, Arterial Blood Partial Pressure CO2 32, Arterial Blood Partial Pressure O2 87, Arterial Blood HCO3 22, Arterial Blood Total CO2 22.5, Arterial Blood Oxygen Saturation 98, Arterial Blood Base Excess -2.0, Aldo Test YES-POS, Blood Gas Ventilator Setting NO, Blood Gas Inspired Oxygen 100% 04/13/21 11:39: Glucometer 92 04/13/21 17:15: Triglycerides Level 89 04/13/21 19:28: Glucometer 92 04/13/21 21:10: Blood Gas Puncture Site RIGHT RADIAL, Blood Gas Patient Temperature 36.8, Arterial Blood pH 7.28, Arterial Blood Partial Pressure CO2 48, Arterial Blood Partial Pressure O2 74, Arterial Blood HCO3 22, Arterial Blood Total CO2 23.3, Arterial Blood Oxygen Saturation 94, Arterial Blood Base Excess -3.9, Aldo Test YES-POS, Blood Gas Ventilator Setting YES, Blood Gas Inspired Oxygen 100% 04/13/21 23:38: Glucometer 93 04/14/21 01:25: Blood Gas Puncture Site RIGHT RADIAL, Blood Gas Patient Temperature 36.8, Arterial Blood pH 7.35, Arterial Blood Partial Pressure CO2 39, Arterial Blood Partial Pressure O2 105, Arterial Blood HCO3 20, Arterial Blood Total CO2 21.5, Arterial Blood Oxygen Saturation 98, Arterial Blood Base Excess -4.5, Aldo Test YES-POS, Blood Gas Ventilator Setting YES, Blood Gas Inspired Oxygen 90% 04/14/21 01:30: White Blood Count 32.9, Red Blood Count 4.81, Hemoglobin 14.9, Hematocrit 46, Mean Corpuscular Volume 96, Mean Corpuscular Hemoglobin 31, Mean Corpuscular Hemoglobin Concent 32, Red Cell Distribution Width 14.3, Platelet Count 329, Mean Platelet Volume 9.7, Immature Granulocyte % (Auto) 1, Neutrophils (%) (Auto) 94, Lymphocytes (%) (Auto) 2, Monocytes (%) (Auto) 3, Eosinophils (%) (Auto) 0, Basophils (%) (Auto) 0, Neutrophils # (Auto) 31.0, Lymphocytes # (Auto) 0.5, Monocytes # (Auto) 1.0, Eosinophils # (Auto) 0.0, Basophils # (Auto) 0.1, Immature Granulocyte # (Auto) 0.4, Neutrophils % (Manual) 94, Lymphocytes % (Manual) 1, Monocytes % (Manual) 2, Band Neutrophils 3, Crenated Cell MARKED, Sodium Level 145, Potassium Level 4.6, Chloride Level 113, Carbon Dioxide Level 18, Anion Gap 14, Blood Urea Nitrogen 23, Creatinine 1.01, Estimat Glomerular Filtration Rate 72, BUN/Creatinine Ratio 23, Glucose Level 100, Calcium Level 8.0, Magnesium Level 2.3 04/14/21 05:05: Blood Gas Puncture Site RIGHT RADIAL, Blood Gas Patient Temperature 36.3, Arterial Blood pH 7.31, Arterial Blood Partial Pressure CO2 39, Arterial Blood Partial Pressure O2 78, Arterial Blood HCO3 19, Arterial Blood Total CO2 20.5, Arterial Blood Oxygen Saturation 96, Arterial Blood Base Excess -6.1, Aldo Test YES-POS, Blood Gas Ventilator Setting YES, Blood Gas Inspired Oxygen 80% 04/14/21 23:38: Glucometer 160 04/15/21 03:40: [facility], Blood Gas Patient Temperature 37.1, Arterial Blood pH 7.41, Arterial Blood Partial Pressure CO2 35, Arterial Blood Partial Pressure O2 61, Arterial Blood HCO3 22, Arterial Blood Total CO2 22.9, Arterial Blood Oxygen Saturation 90, Arterial Blood Base Excess -2.1, Aldo Test ARTLINE, Blood Gas Ventilator Setting YES, Blood Gas Inspired Oxygen 55, Sodium Level 146, Potassium Level 4.2, Chloride Level 111, Carbon Dioxide Level 19, Anion Gap 16, Blood Urea Nitrogen 22, Creatinine 0.50, Estimat Glomerular Filtration Rate 163, BUN/Creatinine Ratio 44, Glucose Level 101, Calcium Level 7.5, Magnesium Level 1.5, Triglycerides Level 85 04/15/21 04:05: Urine Color YELLOW, Urine Clarity CLEAR, Urine pH 6.0, Urine Specific [place] >=1.030, Urine Protein 2+, Urine Glucose (UA) NEGATIVE, Urine Ketones NEGATIVE, Urine Nitrite NEGATIVE, Urine Bilirubin 1+, Urine Urobilinogen 0.2, Urine Leukocyte Esterase NEGATIVE, Urine RBC (Auto) 3+, Urine RBC 10-25, Urine WBC 0- 2, Urine Squamous Epithelial Cells RARE, Urine Crystals NONE, Urine Bacteria TRACE, Urine Casts NONE, Urine Mucus NEGATIVE, Urine Culture Indicated NO, Urine Legionella pneumophilia Ag Negative 04/15/21 10:57: White Blood Count 20.1, Red Blood Count 3.97, Hemoglobin 12.4, Hematocrit 37, Mean Corpuscular Volume 94, Mean Corpuscular Hemoglobin 31, Mean Corpuscular Hemoglobin Concent 33, Red Cell Distribution Width 14.5, Platelet Count 284, Mean Platelet Volume 10.2, Prothrombin Time 15.3, INR Comment 1.2, D-Dimer 4.31 04/15/21 12:13: Glucometer 144 04/15/21 18:38: Glucometer 164 04/15/21 23:59: Glucometer 145 04/16/21 04:10: White Blood Count 10.0, Red Blood Count 3.90, Hemoglobin 12.0, Hematocrit 37, Mean Corpuscular Volume 95, Mean Corpuscular Hemoglobin 31, Mean Corpuscular Hemoglobin Concent 32, Red Cell Distribution Width 14.6, Platelet Count 217, Mean Platelet Volume 9.9, Immature Granulocyte % (Auto) 1, Neutrophils (%) (Auto) 93, Lymphocytes (%) (Auto) 3, Monocytes (%) (Auto) 3, Eosinophils (%) (Auto) 0, Basophils (%) (Auto) 0, Neutrophils # (Auto) 9.3, Lymphocytes # (Auto) 0.3, Monocytes # (Auto) 0.3, Eosinophils # (Auto) 0.0, Basophils # (Auto) 0.0, Immature Granulocyte # (Auto) 0.1, Blood Gas Puncture Site RIGHT RADIAL, Blood Gas Patient Temperature 35.8, Arterial Blood pH 7.44, Arterial Blood Partial Pressure CO2 36, Arterial Blood Partial Pressure O2 60, Arterial Blood HCO3 24, Arterial Blood Total CO2 25.5, Arterial Blood Oxygen Saturation 92, Arterial Blood Base Excess 0.4, Aldo Test YES-POS, Blood Gas Ventilator Setting YES, Blood Gas Inspired Oxygen 60%, Sodium Level 145, Potassium Level 3.8, Chloride Level 115, Carbon Dioxide Level 22, Anion Gap 8, Blood Urea Nitrogen 27, Creatinine 0.67, Estimat Glomerular Filtration Rate 116, BUN/Creatinine Ratio 40, Glucose Level 123, Calcium Level 8.1, Magnesium Level 2.6 04/16/21 11:57: Glucometer 116 04/16/21 17:47: Glucometer 108 04/16/21 23:40: Glucometer 100 04/17/21 02:40: White Blood Count 8.0, Red Blood Count 3.82, Hemoglobin 11.8, Hematocrit 36, Mean Corpuscular Volume 95, Mean Corpuscular Hemoglobin 31, Mean Corpuscular Hemoglobin Concent 33, Red Cell Distribution Width 14.7, Platelet Count 196, Mean Platelet Volume 10.0, Immature Granulocyte % (Auto) 1, Neutrophils (%) (Auto) 91, Lymphocytes (%) (Auto) 4, Monocytes (%) (Auto) 4, Eosinophils (%) (Auto) 0, Basophils (%) (Auto) 0, Neutrophils # (Auto) 7.3, Lymphocytes # (Auto) 0.3, Monocytes # (Auto) 0.4, Eosinophils # (Auto) 0.0, Basophils # (Auto) 0.0, Immature Granulocyte # (Auto) 0.1, Blood Gas Puncture Site ARTLINE, Blood Gas Patient Temperature 35.2, Arterial Blood pH 7.50, Arterial Blood Partial Pressure CO2 33, Arterial Blood Partial Pressure O2 59, Arterial Blood HCO3 26, Arterial Blood Total CO2 26.6, Arterial Blood Oxygen Saturation 94, Arterial Blood Base Excess 2.1, Aldo Test ARTLINE, Blood Gas Ventilator Setting YES, Blood Gas Inspired Oxygen 70%, Sodium Level 149, Potassium Level 4.1, Chloride Level 115, Carbon Dioxide Level 23, Anion Gap 11, Blood Urea Nitrogen 25, Creatinine 0.62, Estimat Glomerular Filtration Rate 127, BUN/Creatinine Ratio 40, Glucose Level 95, Calcium Level 7.7, Magnesium Level 2.4, Triglycerides Level 171 04/17/21 11:36: Glucometer 98 04/17/21 17:50: Glucometer 120 04/18/21 00:00: Glucometer 122 04/18/21 03:49: White Blood Count 11.3, Red Blood Count 4.05, Hemoglobin 12.5, Hematocrit 39, Mean Corpuscular Volume 96, Mean Corpuscular Hemoglobin 31, Mean Corpuscular Hemoglobin Concent 32, Red Cell Distribution Width 15.1, Platelet Count 208, Mean Platelet Volume 10.5, Immature Granulocyte % (Auto) 2, Neutrophils (%) (Auto) 87, Lymphocytes (%) (Auto) 4, Monocytes (%) (Auto) 6, Eosinophils (%) (Auto) 1, Basophils (%) (Auto) 0, Neutrophils # (Auto) 9.8, Lymphocytes # (Auto) 0.5, Monocytes # (Auto) 0.6, Eosinophils # (Auto) 0.2, Basophils # (Auto) 0.0, Immature Granulocyte # (Auto) 0.2, Blood Gas Puncture Site ARTLINE, Blood Gas Patient Temperature 36.6, Arterial Blood pH 7.39, Arterial Blood Partial Pressure CO2 40, Arterial Blood Partial Pressure O2 88, Arterial Blood HCO3 24, Arterial Blood Total CO2 24.9, Arterial Blood Oxygen Saturation 96, Arterial Blood Base Excess -0.7, Aldo Test ARTLINE, Blood Gas Ventilator Setting YES, Blood Gas Inspired Oxygen 90%, Sodium Level 143, Potassium Level 4.3, Chloride Level 114, Carbon Dioxide Level 21, Anion Gap 8, Blood Urea Nitrogen 28, Creatinine 0.67, Estimat Glomerular Filtration Rate 116, BUN/Creatinine Ratio 42, Glucose Level 123, Calcium Level 7.3, Magnesium Level 2.4 04/18/21 11:50: Glucometer 127 04/18/21 16:56: Glucometer 123 04/18/21 23:14: Glucometer 112 04/19/21 03:05: White Blood Count 9.5, Red Blood Count 3.67, Hemoglobin 11.4, Hematocrit 35, Mean Corpuscular Volume 96, Mean Corpuscular Hemoglobin 31, Mean Corpuscular Hemoglobin Concent 32, Red Cell Distribution Width 14.8, Platelet Count 138, Mean Platelet Volume 10.9, Immature Granulocyte % (Auto) 1, Neutrophils (%) (Auto) 89, Lymphocytes (%) (Auto) 5, Monocytes (%) (Auto) 4, Eosinophils (%) (Auto) 1, Basophils (%) (Auto) 0, Neutrophils # (Auto) 8.4, Lymphocytes # (Auto) 0.4, Monocytes # (Auto) 0.4, Eosinophils # (Auto) 0.1, Basophils # (Auto) 0.0, I mmature Granulocyte # (Auto) 0.1, Percent Immature Platelet Fraction 4.1, Blood Gas Puncture Site ARTLINE, Blood Gas Patient Temperature 35.4, Arterial Blood pH 7.46, Arterial Blood Partial Pressure CO2 36, Arterial Blood Partial Pressure O2 77, Arterial Blood HCO3 25, Arterial Blood Total CO2 26.1, Arterial Blood Oxygen Saturation 95, Arterial Blood Base Excess 1.4, Aldo Test ARTLINE, Blood Gas Ventilator Setting YES, Blood Gas Inspired Oxygen 70%, Sodium Level 139, Potassium Level 4.1, Chloride Level 111, Carbon Dioxide Level 20, Anion Gap 8, Blood Urea Nitrogen 30, Creatinine 0.60, Estimat Glomerular Filtration Rate 132, BUN/Creatinine Ratio 50, Glucose Level 115, Calcium Level 7.3, Magnesium Level 2.3 04/19/21 11:12: Glucometer 127 04/19/21 17:41: Glucometer 98 04/19/21 23:38: Glucometer 83 04/20/21 02:05: White Blood Count 12.5, Red Blood Count 3.59, Hemoglobin 11.3, Hematocrit 34, Mean Corpuscular Volume 96, Mean Corpuscular Hemoglobin 32, Mean Corpuscular Hemoglobin Concent 33, Red Cell Distribution Width 14.6, Platelet Count 170, Mean Platelet Volume 11.2, Immature Granulocyte % (Auto) 1, Neutrophils (%) (Auto) 89, Lymphocytes (%) (Auto) 4, Monocytes (%) (Auto) 4, Eosinophils (%) (Auto) 0, Basophils (%) (Auto) 0, Neutrophils # (Auto) 11.1, Lymphocytes # (Auto) 0.6, Monocytes # (Auto) 0.5, Eosinophils # (Auto) 0.1, Basophils # (Auto) 0.0, Immature Granulocyte # (Auto) 0.2, Blood Gas Puncture Site RIGHT RADIAL, Blood Gas Patient Temperature 36.7, Arterial Blood pH 7.43, Arterial Blood Partial Pressure CO2 37, Arterial Blood Partial Pressure O2 85, Arterial Blood HCO3 24, Arterial Blood Total CO2 25.2, Arterial Blood Oxygen Saturation 97, Arterial Blood Base Excess 0.3, Aldo Test ARTLINE, Blood Gas Ventilator Setting YES, Blood Gas Inspired Oxygen 60%, Sodium Level 142, Potassium Level 4.1, Chloride Level 112, Carbon Dioxide Level 21, Anion Gap 9, Blood Urea Nitrogen 21, Creatinine 0.68, Estimat Glomerular Filtration Rate 114, BUN/Creatinine Ratio 31, Glucose Level 79, Calcium Level 7.6, Magnesium Level 2.4 04/20/21 11:20: Glucometer 72 04/20/21 17:38: Glucometer 80 04/20/21 23:18: Glucometer 67 04/21/21 04:17: White Blood Count 15.9, Red Blood Count 4.45, Hemoglobin 13.8, Hematocrit 42, Mean Corpuscular Volume 94, Mean Corpuscular Hemoglobin 31, Mean Corpuscular Hemoglobin Concent 33, Red Cell Distribution Width 14.6, Platelet Count 260, Mean Platelet Volume 11.4, Immature Granulocyte % (Auto) 2, Neutrophils (%) (Auto) 85, Lymphocytes (%) (Auto) 8, Monocytes (%) (Auto) 5, Eosinophils (%) (Auto) 1, Basophils (%) (Auto) 0, Neutrophils # (Auto) 13.5, Lymphocytes # (Auto) 1.3, Monocytes # (Auto) 0.7, Eosinophils # (Auto) 0.1, Basophils # (Auto) 0.0, Immature Granulocyte # (Auto) 0.2, Blood Gas Puncture Site RT ARTLINE, Blood Gas Patient Temperature 36.5, Arterial Blood pH 7.41, Arterial Blood Partial Pressure CO2 36, Arterial Blood Partial Pressure O2 59, Arterial Blood HCO3 22, Arterial Blood Total CO2 23.5, Arterial Blood Oxygen Saturation 91, Arterial Blood Base Excess -1.7, Aldo Test ARTLINE, Blood Gas Ventilator Setting YES, Blood Gas Inspired Oxygen 55%, Sodium Level 141, Potassium Level 3.8, Chloride Level 110, Carbon Dioxide Level 20, Anion Gap 11, Blood Urea Nitrogen 16, Creatinine 0.64, Estimat Glomerular Filtration Rate 122, BUN/Creatinine Ratio 25, Glucose Level 83, Calcium Level 8.1, Magnesium Level 2.3 04/21/21 10:52: Glucometer 95 04/21/21 18:15: Glucometer 126 04/21/21 23:44: Glucometer 91 04/22/21 04:15: White Blood Count 12.2, Red Blood Count 4.12, Hemoglobin 12.7, Hematocrit 38, Mean Corpuscular Volume 93, Mean Corpuscular Hemoglobin 31, Mean Corpuscular Hemoglobin Concent 33, Red Cell Distribution Width 14.6, Platelet Count 286, Kathy n Platelet Volume 11.1, Immature Granulocyte % (Auto) 2, Neutrophils (%) (Auto) 87, Lymphocytes (%) (Auto) 5, Monocytes (%) (Auto) 5, Eosinophils (%) (Auto) 1, Basophils (%) (Auto) 0, Neutrophils # (Auto) 10.6, Lymphocytes # (Auto) 0.6, Monocytes # (Auto) 0.6, Eosinophils # (Auto) 0.1, Basophils # (Auto) 0.0, Immature Granulocyte # (Auto) 0.2, Neutrophils % (Manual) 83, Lymphocytes % (Manual) 6, Monocytes % (Manual) 4, Band Neutrophils 3, Hypersegmented Neutrophils SLIGHT, Atypical Lymphocytes 3, Cindy Cells SLIGHT, Crenated Cell MODERATE, Blood Gas Puncture Site ARTLINE, Blood Gas Patient Temperature 37.5, Arterial Blood pH 7.46, Arterial Blood Partial Pressure CO2 34, Arterial Blood Partial Pressure O2 64, Arterial Blood HCO3 24, Arterial Blood Total CO2 24.5, Arterial Blood Oxygen Saturation 92, Arterial Blood Base Excess 0.1, Aldo Test POSITIVE, Blood Gas Ventilator Setting YES, Blood Gas Inspired Oxygen 50, Sodium Level 139, Potassium Level 3.9, Chloride Level 109, Carbon Dioxide Level 20, Anion Gap 10, Blood Urea Nitrogen 20, Creatinine 0.64, Estimat Glomerular Filtration Rate 122, BUN/Creatinine Ratio 31, Glucose Level 94, Calcium Level 7.9, Magnesium Level 2.2 04/22/21 11:22: Glucometer 123 04/22/21 16:53: Glucometer 130 04/22/21 23:06: Glucometer 102 04/23/21 03:25: White Blood Count 10.4, Red Blood Count 3.77, Hemoglobin 11.7, Hematocrit 35, Mean Corpuscular Volume 92, Mean Corpuscular Hemoglobin 31, Mean Corpuscular Hemoglobin Concent 34, Red Cell Distribution Width 14.4, Platelet Count 306, Mean Platelet Volume 11.1, Immature Granulocyte % (Auto) 1, Neutrophils (%) (Auto) 87, Lymphocytes (%) (Auto) 6, Monocytes (%) (Auto) 6, Eosinophils (%) (Auto) 0, Basophils (%) (Auto) 0, Neutrophils # (Auto) 9.1, Lymphocytes # (Auto) 0.6, Monocytes # (Auto) 0.6, Eosinophils # (Auto) 0.0, Basophils # (Auto) 0.0, Immature Granulocyte # (Auto) 0.1, Blood Gas Puncture Site ART LINE, Blood Gas Patient Temperature 37.6, Arterial Blood pH 7.51, Arterial Blood Partial Pressure CO2 28, Arterial Blood Partial Pressure O2 53, Arterial Blood HCO3 22, Arterial Blood Total CO2 23.0, Arterial Blood Oxygen Saturation 89, Arterial Blood Base Excess -0.4, Aldo Test ART LINE, Blood Gas Ventilator Setting YES, Blood Gas Inspired Oxygen 30%, Sodium Level 136, Potassium Level 3.8, Chloride Level 109, Carbon Dioxide Level 20, Anion Gap 7, Blood Urea Nitrogen 21, Creatinine 0.58, Estimat Glomerular Filtration Rate 137, BUN/Creatinine Ratio 36, Glucose Level 95, Calcium Level 7.5, Magnesium Level 2.1, Total Bilirubin 0.8, Direct Bilirubin 0.6, Indirect Bilirubin 0.2, Aspartate Amino Transf (AST/SGOT) 77, Alanine Aminotransferase (ALT/SGPT) 89, Alkaline Phosphatase 163, Total Protein 4.8, Albumin 2.0, Procalcitonin 0.18 04/23/21 12:08: Glucometer 127 04/23/21 17:54: Glucometer 107 04/24/21 01:03: Glucometer 84 04/24/21 03:50: White Blood Count 10.5, Red Blood Count 3.89, Hemoglobin 12.0, Hematocrit 36, Mean Corpuscular Volume 92, Mean Corpuscular Hemoglobin 31, Mean Corpuscular Hemoglobin Concent 33, Red Cell Distribution Width 14.4, Platelet Count 342, Mean Platelet Volume 10.7, Immature Granulocyte % (Auto) 2, Neutrophils (%) (Auto) 86, Lymphocytes (%) (Auto) 6, Monocytes (%) (Auto) 5, Eosinophils (%) (Auto) 1, Basophils (%) (Auto) 0, Neutrophils # (Auto) 9.0, Lymphocytes # (Auto) 0.6, Monocytes # (Auto) 0.5, Eosinophils # (Auto) 0.1, Basophils # (Auto) 0.0, Immature Granulocyte # (Auto) 0.2, Blood Gas Puncture Site RIGHT ART LINE, Blood Gas Patient Temperature 37.7, Arterial Blood pH 7.52, Arterial Blood Partial Pressure CO2 28, Arterial Blood Partial Pressure O2 71, Arterial Blood HCO3 22, Arterial Blood Total CO2 22.9, Arterial Blood Oxygen Saturation 95, Arterial Blood Base Excess -0.4, Aldo Test ART LINE, Blood Gas Ventilator Setting YES, Blood Gas Inspired Oxygen 45%, Sodium Level 136, Potassium Level 3.6, Chloride Level 107, Carbon Dioxide Level 19, Anion Gap 10, Blood Urea Nitrogen 19, Creatinine 0.58, Estimat Glomerular Filtration Rate 137, BUN/Creatinine Ratio 33, Glucose Level 94, Calcium Level 7.3, Phosphorus Level 2.7, Magnesium Level 2.0 04/24/21 13:09: Glucometer 128 04/24/21 17:10: Glucometer 109 04/24/21 23:25: Glucometer 96 04/25/21 03:45: White Blood Count 12.8, Red Blood Count 4.03, Hemoglobin 12.2, Hematocrit 37, Mean Corpuscular Volume 91, Mean Corpuscular Hemoglobin 30, Mean Corpuscular Hemoglobin Concent 33, Red Cell Distribution Width 14.2, Platelet Count 394, Mean Platelet Volume 10.6, Immature Granulocyte % (Auto) 2, Neutrophils (%) (Auto) 86, Lymphocytes (%) (Auto) 6, Monocytes (%) (Auto) 5, Eosinophils (%) (Auto) 1, Basophils (%) (Auto) 0, Neutrophils # (Auto) 11.1, Lymphocytes # (Auto) 0.8, Monocytes # (Auto) 0.7, Eosinophils # (Auto) 0.1, Basophils # (Auto) 0.0, Immature Granulocyte # (Auto) 0.2, Blood Gas Puncture Site RIGHT RADIAL, Blood Gas Patient Temperature 37.5, Arterial Blood pH 7.52, Arterial Blood Partial Pressure CO2 27, Arterial Blood Partial Pressure O2 54, Arterial Blood HCO3 22, Arterial Blood Total CO2 22.9, Arterial Blood Oxygen Saturation 91, Arterial Blood Base Excess -0.4, Aldo Test ART LINE, Blood Gas Ventilator Setting YES, Blood Gas Inspired Oxygen 35%, Sodium Level 138, Potassium Level 3.8, Chloride Level 109, Carbon Dioxide Level 20, Anion Gap 9, Blood Urea Nitrogen 18, Creatinine 0.59, Estimat Glomerular Filtration Rate 134, BUN/Creatinine Ratio 31, Glucose Level 94, Calcium Level 7.6, Corrected Calcium 9.2, Phosphorus Level 3.0, Magnesium Level 2.0, Total Bilirubin 0.6, Aspartate Amino Transf (AST/SGOT) 85, Alanine Aminotransferase (ALT/SGPT) 137, Alkaline Phosphatase 184, Total Protein 4.8, Albumin 2.0, Triglycerides Level 119, Cholesterol Level 137, LDL Cholesterol Direct 109, VLDL Cholesterol 24, HDL Cholesterol 24 04/25/21 12:21: Glucometer 109 04/25/21 17:30: Glucometer 107 04/26/21 00:22: Glucometer 85 04/26/21 03:58: White Blood Count 14.2, Red Blood Count 3.88, Hemoglobin 12.1, Hematocrit 36, M alesha Corpuscular Volume 93, Mean Corpuscular Hemoglobin 31, Mean Corpuscular Hemoglobin Concent 34, Red Cell Distribution Width 14.5, Platelet Count 408, Mean Platelet Volume 10.6, Immature Granulocyte % (Auto) 2, Neutrophils (%) (Auto) 87, Lymphocytes (%) (Auto) 5, Monocytes (%) (Auto) 5, Eosinophils (%) (Auto) 1, Basophils (%) (Auto) 0, Neutrophils # (Auto) 12.4, Lymphocytes # (Au to) 0.7, Monocytes # (Auto) 0.7, Eosinophils # (Auto) 0.1, Basophils # (Auto) 0.1, Immature Granulocyte # (Auto) 0.2, Sodium Level 135, Potassium Level 3.6, Chloride Level 106, Carbon Dioxide Level 20, Anion Gap 9, Blood Urea Nitrogen 15, Creatinine 0.59, Estimat Glomerular Filtration Rate 134, BUN/Creatinine Ratio 25, Glucose Level 88, Calcium Level 7.1, Corrected Calcium 8.8, Phosphorus Level 3.0, Magnesium Level 1.8, Total Bilirubin 0.6, Aspartate Amino Transf (AST/SGOT) 58, Alanine Aminotransferase (ALT/SGPT) 112, Alkaline Phosphatase 161, Total Protein 4.7, Albumin 1.9 04/26/21 04:10: Blood Gas Puncture Site RIGHT ART LINE, Blood Gas Patient Temperature 37.8, Arterial Blood pH 7.47, Arterial Blood Partial Pressure CO2 34, Arterial Blood Partial Pressure O2 62, Arterial Blood HCO3 24, Arterial Blood Total CO2 25.3, Arterial Blood Oxygen Saturation 91, Arterial Blood Base Excess 1.2, Aldo Test ART LINE, Blood Gas Ventilator Setting YES, Blood Gas Inspired Oxygen 30% 04/26/21 12:16: Glucometer 121 04/26/21 15:00: Urine Color YELLOW, Urine Clarity CLEAR, Urine pH 6.0, Urine Specific [place] 1.010, Urine Protein NEGATIVE, Urine Glucose (UA) NEGATIVE, Urine Ketones NEGATIVE, Urine Nitrite NEGATIVE, Urine Bilirubin NEGATIVE, Urine Urobilinogen 0.2, Urine Leukocyte Esterase NEGATIVE, Urine RBC (Auto) TRACE-I, Urine RBC 2-5, Urine WBC 0-2, Urine Crystals PRESENT, Urine Amorphous Sediment FEW SOTERO URATES, Urine Bacteria TRACE, Urine Casts NONE, Urine Mucus NEGATIVE, Urine Culture Indicated NO 04/26/21 17:31: Glucometer 103 04/27/21 03:02: White Blood Count 17.3, Red Blood Count 4.14, Hemoglobin 12.9, Hematocrit 39, Mean Corpuscular Volume 93, Mean Corpuscular Hemoglobin 31, Mean Corpuscular Hemoglobin Concent 34, Red Cell Distribution Width 14.4, Platelet Count 459, Mean Platelet Volume 10.2, Immature Granulocyte % (Auto) 1, Neutrophils (%) (Auto) 88, Lymphocytes (%) (Auto) 5, Monocytes (%) (Auto) 4, Eosinophils (%) (Auto) 1, Basophils (%) (Auto) 0, Neutrophils # (Auto) 15.2, Lymphocytes # (Auto) 0.9, Monocytes # (Auto) 0.7, Eosinophils # (Auto) 0.1, Basophils # (Auto) 0.1, Immature Granulocyte # (Auto) 0.3, Blood Gas Puncture Site ART LINE, Blood Gas Patient Temperature 37.8, Arterial Blood pH 7.45, Arterial Blood Partial Pressure CO2 37, Arterial Blood Partial Pressure O2 59, Arterial Blood HCO3 25, Arterial Blood Total CO2 25.8, Arterial Blood Oxygen Saturation 91, Arterial Blood Base Excess 1.2, Aldo Test ART LINE, Blood Gas Ventilator Setting YES, Blood Gas Inspired Oxygen 35%, Sodium Level 138, Potassium Level 4.0, Chloride Level 108, Carbon Dioxide Level 22, Anion Gap 8, Blood Urea Nitrogen 15, Creatinine 0.58, Estimat Glomerular Filtration Rate 137, BUN/Creatinine Ratio 26, Glucose Level 89, Calcium Level 7.7, Corrected Calcium 9.2, Phosphorus Level 3.2, Magnesium Level 1.9, Total Bilirubin 0.6, Aspartate Amino Transf (AST/SGOT) 48, Alanine Aminotransferase (ALT/SGPT) 113, Alkaline Phosphatase 172, Total Protein 5.1, Albumin 2.1 04/27/21 12:53: Glucometer 103 04/27/21 17:35: Glucometer 80 04/27/21 23:40: Glucometer 79 04/28/21 03:40: White Blood Count 12.1, Red Blood Count 4.36, Hemoglobin 13.5, Hematocrit 41, Mean Corpuscular Volume 93, Mean Corpuscular Hemoglobin 31, Mean Corpuscular Hemoglobin Concent 33, Red Cell Distribution Width 14.4, Platelet Count 484, Mean Platelet Volume 10.2, Immature Granulocyte % (Auto) 2, Neutrophils (%) (Auto) 82, Lymphocytes (%) (Auto) 8, Monocytes (%) (Auto) 5, Eosinophils (%) (Auto) 2, Basophils (%) (Auto) 1, Neutrophils # (Auto) 10.0, Lymphocytes # (Auto) 1.0, Monocytes # (Auto) 0.6, Eosinophils # (Auto) 0.3, Basophils # (Auto) 0.1, Immature Granulocyte # (Auto) 0.2, Blood Gas Puncture Site ART LINE, Blood Gas Patient Temperature 38.2, Arterial Blood pH 7.49, Arterial Blood Partial Pressure CO2 33, Arterial Blood Partial Pressure O2 61, Arterial Blood HCO3 25, Arterial Blood Total CO2 25.5, Arterial Blood Oxygen Saturation 91, Arterial Blood Base Excess 1.6, Aldo Test ART LINE, Blood Gas Ventilator Setting YES, Blood Gas Inspired Oxygen 35%, Sodium Level 137, Potassium Level 4.1, Chloride Level 106, Carbon Dioxide Level 20, Anion Gap 11, Blood Urea Nitrogen 14, Creatinine 0.60, Estimat Glomerular Filtration Rate 132, BUN/Creatinine Ratio 23, Glucose Level 89, Calcium Level 7.8, Corrected Calcium 9.3, Phosphorus Level 3.1, Magnesium Level 1.9, Total Bilirubin 0.7, Aspartate Amino Transf (AST/SGOT) 46, Alanine Aminotransferase (ALT/SGPT) 94, Alkaline Phosphatase 202, Total Protein 5.4, Albumin 2.1 04/28/21 12:30: Glucometer 101 04/28/21 18:00: Glucometer 89 04/29/21 03:55: White Blood Count 17.5, Red Blood Count 4.09, Hemoglobin 12.5, Hematocrit 38, Mean Corpuscular Volume 93, Mean Corpuscular Hemoglobin 31, Mean Corpuscular Hemoglobin Concent 33, Red Cell Distribution Width 14.2, Platelet Count 557, Mean Platelet Volume 10.4, Immature Granulocyte % (Auto) 2, Neutrophils (%) (Auto) 88, Lymphocytes (%) (Auto) 5, Monocytes (%) (Auto) 5, Eosinophils (%) (Auto) 1, Basophils (%) (Auto) 1, Neutrophils # (Auto) 15.3, Lymphocytes # (Auto) 0.9, Monocytes # (Auto) 0.8, Eosinophils # (Auto) 0.1, Basophils # (Auto) 0.1, Immature Granulocyte # (Auto) 0.3, Neutrophils % (Manual) 87, Lymphocytes % (Manual) 5, Monocytes % (Manual) 6, Eosinophils % (Manual) 1, Basophils % (Manual) 1, Blood Morphology Comment NORMAL, Blood Gas Puncture Site LFT RAD, Blood Gas Patient Temperature 38.1, Arterial Blood pH 7.46, Arterial Blood Partial Pressure CO2 34, Arterial Blood Partial Pressure O2 66, Arterial Blood HCO3 23, Arterial Blood Total CO2 24.4, Arterial Blood Oxygen Saturation 93, Arterial Blood Base Excess 0.3, Aldo Test POS, Blood Gas Ventilator Setting YES, Blood Gas Inspired Oxygen 30%, Sodium Level 139, Potassium Level 4.2, Chloride Level 106, Carbon Dioxide Level 24, Anion Gap 9, Blood Urea Nitrogen 15, Creatinine 0.65, Estimat Glomerular Filtration Rate 120, BUN/Creatinine Ratio 23, Glucose Level 95, Calcium Level 7.7, Corrected Calcium 9.3, Phosphorus Level 3.2, Magnesium Level 1.9, Total Bilirubin 0.8, Aspartate Amino Transf (AST/SGOT) 52, Alanine Aminotransferase (ALT/SGPT) 91, Alkaline Phosphatase 201, Total Protein 4.9, Albumin 2.0 04/29/21 11:24: Glucometer 104 04/29/21 15:02: Troponin I < 0.028 04/29/21 17:23: Glucometer 80 04/30/21 00:52: Glucometer 92 04/30/21 03:40: White Blood Count 15.3, Red Blood Count 4.05, Hemoglobin 12.6, Hematocrit 38, Mean Corpuscular Volume 94, Mean Corpuscular Hemoglobin 31, Mean Corpuscular Hemoglobin Concent 33, Red Cell Distribution Width 14.3, Platelet Count 559, Mean Platelet Volume 10.0, Immature Granulocyte % (Auto) 1, Neutrophils (%) (Auto) 84, Lymphocytes (%) (Auto) 7, Monocytes (%) (Auto) 5, Eosinophils (%) (Auto) 1, Basophils (%) (Auto) 1, Neutrophils # (Auto) 12.9, Lymphocytes # (Auto) 1.1, Monocytes # (Auto) 0.8, Eosinophils # (Auto) 0.2, Basophils # (Auto) 0.1, Immature Granulocyte # (Auto) 0.2, Blood Gas Puncture Site RIGHT RADIAL, Blood Gas Patient Temperature 37.0, Arterial Blood pH 7.41, Arterial Blood Partial Pressure CO2 39, Arterial Blood Partial Pressure O2 64, Arterial Blood HCO3 24, Arterial Blood Total CO2 24.9, Arterial Blood Oxygen Saturation 93, Arterial Blood Base Excess -0.4, Aldo Test POSITIVE, Blood Gas Ventilator Setting YES, Blood Gas Inspired Oxygen 35, Sodium Level 138, Potassium Level 4.1, Chloride Level 107, Carbon Dioxide Level 22, Anion Gap 9, Blood Urea Nitrogen 15, Creatinine 0.62, Estimat Glomerular Filtration Rate 127, BUN/Creatinine Ratio 24, Glucose Level 105, Calcium Level 7.7, Corrected Calcium 9.3, Phosphorus Level 3.0, Magnesium Level 2.0, Total Bilirubin 0.5, Aspartate Amino Transf (AST/SGOT) 32, Alanine Aminotransferase (ALT/SGPT) 62, Alkaline Phosphatase 185, Total Protein 5.0, Albumin 2.0 04/30/21 11:58: Glucometer 82 04/30/21 15:51: Glucometer 75 05/01/21 00:01: Glucometer 76 05/01/21 04:10: Blood Gas Puncture Site RIGHT RADIAL, Blood Gas Patient Temperature 37.7, Arterial Blood pH 7.45, Arterial Blood Partial Pressure CO2 32, Arterial Blood Partial Pressure O2 47, Arterial Blood HCO3 23, Arterial Blood Total CO2 23.7, Arterial Blood Oxygen Saturation 87, Arterial Blood Base Excess -1.0, Aldo Test POSITIVE, Blood Gas Ventilator Setting YES, Blood Gas Inspired Oxygen 35 05/01/21 04:20: White Blood Count 15.0, Red Blood Count 4.17, Hemoglobin 13.0, Hematocrit 39, Mean Corpuscular Volume 94, Mean Corpuscular Hemoglobin 31, Mean Corpuscular Hemoglobin Concent 33, Red Cell Distribution Width 14.4, Platelet Count 527, Mean Platelet Volume 9.5, Immature Granulocyte % (Auto) 1, Neutrophils (%) (Auto) 91, Lymphocytes (%) (Auto) 4, Monocytes (%) (Auto) 3, Eosinophils (%) (Auto) 1, Basophils (%) (Auto) 1, Neutrophils # (Auto) 13.7, Lymphocytes # (Auto) 0.6, Monocytes # (Auto) 0.4, Eosinophils # (Auto) 0.1, Basophils # (Auto) 0.1, Immature Granulocyte # (Auto) 0.1, Sodium Level 139, Potassium Level 4.1, Chloride Level 108, Carbon Dioxide Level 20, Anion Gap 11, Blood Urea Nitrogen 15, Creatinine 0.62, Estimat Glomerular Filtration Rate 127, BUN/Creatinine Ratio 24, Glucose Level 75, Calcium Level 8.0, Corrected Calcium 9.6, Phosphorus Level 2.6, Magnesium Level 1.9, Total Bilirubin 0.6, Aspartate Amino Transf (AST/SGOT) 27, Alanine Aminotransferase (ALT/SGPT) 46, Alkaline Phosphatase 171, Total Protein 5.2, Albumin 2.0, Total Cortisol 15.8 05/01/21 10:59: Glucometer 65 05/01/21 17:35: Glucometer 82 05/02/21 00:32: Glucometer 69 05/02/21 05:00: Blood Gas Puncture Site RIGHT RADIAL, Blood Gas Patient Temperature 37.8, Arterial Blood pH 7.37, Arterial Blood Partial Pressure CO2 40, Arterial Blood Partial Pressure O2 81, Arterial Blood HCO3 23, Arterial Blood Total CO2 23.7, Arterial Blood Oxygen Saturation 96, Arterial Blood Base Excess -1.8, Aldo Test POSITIVE, Blood Gas Ventilator Setting YES, Blood Gas Inspired Oxygen 25 05/02/21 05:05: White Blood Count 9.6, Red Blood Count 4.15, Hemoglobin 12.6, Hematocrit 39, Mean Corpuscular Volume 94, Mean Corpuscular Hemoglobin 30, Mean Corpuscular Hemoglobin Concent 32, Red Cell Distribution Width 14.2, Platelet Count 443, Mean Platelet Volume 9.3, Immature Granulocyte % (Auto) 1, Neutrophils (%) (Auto) 86, Lymphocytes (%) (Auto) 7, Monocytes (%) (Auto) 5, Eosinophils (%) (Auto) 2, Basophils (%) (Auto) 1, Neutrophils # (Auto) 8.3, Lymphocytes # (Auto) 0.6, Monocytes # (Auto) 0.4, Eosinophils # (Auto) 0.1, Basophils # (Auto) 0.1, Immature Granulocyte # (Auto) 0.1, Sodium Level 137, Potassium Level 3.9, Chloride Level 106, Carbon Dioxide Level 21, Anion Gap 10, Blood Urea Nitrogen 10, Creatinine 0.57, Estimat Glomerular Filtration Rate 140, BUN/Creatinine Ratio 18, Glucose Level 76, Calcium Level 7.6, Corrected Calcium 9.4, Magnesium Level 1.7, Total Bilirubin 0.5, Aspartate Amino Transf (AST/SGOT) 33, Alanine Aminotransferase (ALT/SGPT) 43, Alkaline Phosphatase 149, Total Protein 4.8, Alb umin 1.8 05/02/21 08:41: Vancomycin Level Trough 18.7 05/02/21 12:38: Glucometer 98 05/02/21 17:20: Glucometer 102 05/03/21 01:55: Glucometer 104 05/03/21 04:15: White Blood Count 10.9, Red Blood Count 4.17, Hemoglobin 12.9, Hematocrit 39, Mean Corpuscular Volume 95, Mean Corpuscular Hemoglobin 31, Mean Corpuscular Hemoglobin Concent 33, Red Cell Distribution Width 14.0, Platelet Count 538, Mean Platelet Volume 9.1, Immature Granulocyte % (Auto) 1, Neutrophils (%) (Auto) 82, Lymphocytes (%) (Auto) 9, Monocytes (%) (Auto) 6, Eosinophils (%) (Auto) 2, Basophils (%) (Auto) 1, Neutrophils # (Auto) 9.0, Lymphocytes # (Auto) 0.9, Monocytes # (Auto) 0.6, Eosinophils # (Auto) 0.2, Basophils # (Auto) 0.1, Immature Granulocyte # (Auto) 0.1, Blood Gas Puncture Site RT RADIAL, Blood Gas Patient Temperature 37.5, Arterial Blood pH 7.38, Arterial Blood Partial Pressure CO2 45, Arterial Blood Partial Pressure O2 60, Arterial Blood HCO3 26, Arterial Blood Total CO2 27.3, Arterial Blood Oxygen Saturation 91, Arterial Blood Base Excess 1.4, Aldo Test YES-POS, Blood Gas Ventilator Setting YES, Blood Gas Inspired Oxygen 40%, Sodium Level 138, Potassium Level 3.9, Chloride Level 107, Carbon Dioxide Level 23, Anion Gap 8, Blood Urea Nitrogen 8, Creatinine 0.52, Estimat Glomerular Filtration Rate 155, BUN/Creatinine Ratio 15, Glucose Level 109, Calcium Level 7.8, Corrected Calcium 9.5, Phosphorus Level 2.5, Magnesium Level 2.2, Total Bilirubin 0.4, Aspartate Amino Transf (AST/SGOT) 38, Alanine Aminotransferase (ALT/SGPT) 48, Alkaline Phosphatase 215, Total Protein 4.9, Albumin 1.9 05/03/21 13:32: Glucometer 120 05/03/21 17:15: Glucometer 106 05/03/21 22:57: Glucometer 162 05/04/21 04:10: White Blood Count 12.1, Red Blood Count 4.18, Hemoglobin 12.9, Hematocrit 39, Mean Corpuscular Volume 93, Mean Corpuscular Hemoglobin 31, Mean Corpuscular Hemoglobin Concent 33, Red Cell Distribution Width 14.1, Platelet Count 547, Mean Platelet Volume 9.4, Immature Granulocyte % (Auto) 1, Neutrophils (%) (Auto) 82, Lymphocytes (%) (Auto) 9, Monocytes (%) (Auto) 6, Eosinophils (%) (Auto) 1, Basophils (%) (Auto) 1, Neutrophils # (Auto) 9.9, Lymphocytes # (Auto) 1.1, Monocytes # (Auto) 0.7, Eosinophils # (Auto) 0.2, Basophils # (Auto) 0.1, Immature Granulocyte # (Auto) 0.1, Blood Gas Puncture Site RT RADIAL, Blood Gas Patient Temperature 37.4, Arterial Blood pH 7.48, Arterial Blood Partial Pressure CO2 37, Arterial Blood Partial Pressure O2 63, Arterial Blood HCO3 27, Arterial Blood Total CO2 28.2, Arterial Blood Oxygen Saturation 94, Arterial Blood Base Excess 3.7, Aldo Test YES-POS, Blood Gas Ventilator Setting YES, Blood Gas Inspired Oxygen 45%, Sodium Level 142, Potassium Level 4.0, Chloride Level 108, Carbon Dioxide Level 25, Anion Gap 9, Blood Urea Nitrogen 9, Creatinine 0.53, Estimat Glomerular Filtration Rate 152, BUN/Creatinine Ratio 17, Glucose Level 120, Calcium Level 7.8, Corrected Calcium 9.5, Phosphorus Level 1.8, Magnesium Level 1.9, Total Bilirubin 0.4, Aspartate Amino Transf (AST/SGOT) 38, Alanine Aminotransferase (ALT/SGPT) 45, Alkaline Phosphatase 281, Total Protein 5.0, Albumin 1.9 05/04/21 11:29: Glucometer 141 Discharge Home Medications: Active Scripts Active Metoclopramide HCl 5 Mg/1 Ml Vial 10 Mg IVP Q6HR PRN 7 Days Lorazepam 2 Mg/1 Ml Vial 0.5 Mg IVP ONCE PRN 7 Days Diprivan (Propofol) 10 Mg/1 Ml Vial 10 Mg IV UD 7 Days Eliquis (Apixaban) 5 Mg Tablet 5 Mg PO BID 30 Days Reported Atorvastatin Calcium 10 Mg Tablet 10 Mg PO DAILY Instructions to patient/family Please see electronic discharge instructions given to patient. COTY SHIPMAN DO May 04, 2021 13:50
--- NOTE | 2021-05-04 14:14 | Pulmonary Progress Note ---
VIRIDIANA YOUNG MED STUDENT 05/04/21 1414: Subjective Time Seen by a Provider: 07:30 Subjective/Events-last exam Saud is intubated at TV 500 RR 18 Peep 5 FiO2 35%. He does not respond to voice or touch. Sepsis Event Evaluation Height, Weight, BMI Height: '" Weight: lbs. oz. kg; 21.43 BMI Method: Focused Exam Time of Focused Exam: 07:15 Exam Exam Patient acknowledged, consented, and participated in this virtual visit which was conducted using real time audio/video Vital Signs Date Time Temp Pulse Resp B/P (MAP) Pulse Ox O2 Delivery O2 Flow Rate FiO2 05/04/21 13:42 49 118/95 05/04/21 12:00 37.7 68 25 100/65 (77) 93 Mechanical Ventilator 45.00 05/04/21 11:00 37.7 112 24 88/59 (69) 91 Mechanical Ventilator 45.00 05/04/21 10:44 84 26 91 45 05/04/21 10:00 38.0 61 23 119/81 (94) 94 Mechanical Ventilator 45.00 05/04/21 09:00 38.3 93 26 92/64 (73) 91 Mechanical Ventilator 45.00 05/04/21 08:59 84 79/57 05/04/21 08:15 94 Mechanical Ventilator 45 05/04/21 08:00 38.6 65 23 118/88 (98) 96 Mechanical Ventilator 45.00 05/04/21 07:00 58 22 96 45 05/04/21 07:00 38.7 65 17 103/83 (90) 96 Mechanical Ventilator 45.00 05/04/21 06:43 67 05/04/21 06:00 38.3 78 28 117/99 (105) 93 Mechanical Ventilator 45.00 05/04/21 05:52 Mechanical Ventilator 45.00 05/04/21 05:15 37.8 05/04/21 05:11 152 43 87 05/04/21 05:00 37.7 76 31 103/76 (85) 92 Mechanical Ventilator 55.00 05/04/21 04:42 37.8 05/04/21 04:34 84/68 05/04/21 04:30 Mechanical Ventilator 55.00 05/04/21 04:00 37.3 105 18 112/82 (92) 89 Mechanical Ventilator 45.00 05/04/21 04:00 93 Mechanical Ventilator 45 05/04/21 03:00 37.0 65 20 114/76 (89) 93 Mechanical Ventilator 45.00 05/04/21 02:08 93 45 05/04/21 02:00 64 19 92 45 05/04/21 02:00 37.0 60 18 126/79 (95) 91 Mechanical Ventilator 45.00 05/04/21 01:00 52 05/04/21 01:00 36.9 52 17 118/69 (85) 94 Mechanical Ventilator 45.00 05/04/21 00:00 94 Mechanical Ventilator 45 05/04/21 00:00 36.9 60 16 116/79 (91) 94 Mechanical Ventilator 45.00 05/03/21 23:04 37.1 70 17 90/54 (66) 92 Mechanical Ventilator 45.00 05/03/21 22:59 91/52 05/03/21 22:58 Mechanical Ventilator 45.00 05/03/21 22:19 Mechanical Ventilator 40.00 05/03/21 22:00 37.1 67 14 122/86 (98) 97 Mechanical Ventilator 60.00 05/03/21 21:17 58 23 96 60 05/03/21 21:00 37.2 56 16 127/88 (99) 96 Mechanical Ventilator 60.00 05/03/21 20:30 37.4 65 16 108/86 (91) 96 Mechanical Ventilator 60.00 05/03/21 20:00 96 Mechanical Ventilator 60 05/03/21 19:09 37.6 05/03/21 19:00 95 05/03/21 19:00 Mechanical Ventilator 60.00 05/03/21 19:00 37.7 95 16 90/64 (73) 99 Mechanical Ventilator 60.00 05/03/21 18:41 80 118/86 05/03/21 18:21 55 23 98 100 05/03/21 18:00 37.8 60 14 116/73 (87) 98 Mechanical Ventilator 100.00 05/03/21 17:00 38.0 122 87 122/87 (99) 97 Mechanical Ventilator 100.00 05/03/21 16:00 38.2 67 14 115/81 (92) 97 Mechanical Ventilator 100.00 05/03/21 16:00 97 Mechanical Ventilator 100 05/03/21 15:00 38.5 93 62 93/62 (72) 96 Mechanical Ventilator 100.00 05/03/21 14:35 Mechanical Ventilator 100.00 05/03/21 14:29 107 78/51 05/03/21 14:25 94 100 05/03/21 14:11 122 23 97 80 I & O 05/04/21 07:00 Intake Total 3677 ml Output Total 5225 ml Balance -1548 ml Height & Weight Height: '" Weight: lbs. oz. kg; 21.43 BMI Method: General Appearance: WD/WN, Chronically ill, Other (Sedated and intubated) Neck: Normal Inspection, Supple Respiratory: No Accessory Muscle Use, Decreased Breath Sounds Cardiovascular: Regular Rate, Rhythm, No Gallop, No Murmur, Normal Peripheral Pulses, Irregularly Irregular, Other (bilateral pedal edema and edema in the hands. Feet are cold to the touch. LE Pulses not palpable due to edema. Radial pulses intact) Capillary Refill: Less Than 3 Seconds Peripheral Pulses: 1+ Dorsalis Pedis (R), 1+ Left Dors-Pedis (L), 1+ Radial Pulses (L) Gastrointestinal: soft; No distended Extremity: Normal Capillary Refill, Swelling, Other (hydrocele. Trotter catheter in place. ) Neurologic/Psychiatric: No Alert, No Oriented x3; Other (sedated, no purposeful movements) Skin: Normal Color, Warm/Dry; No Rash (no rash to chest, abdomen, thighs, neck, or face.) Results Lab Laboratory Tests 05/03/21 04:15 05/04/21 04:10 Assessment/Plan Assessment/Plan Covid-19 pneumonia s/p prolonged intubation. tracheotomy in place. -Enterococcus faecium and Pseudomonas on culture 04/30 -on Linezolid, Anidulafungin, Meropenem -Awaiting information regarding [facility] policies re: vasopressor policy Intermittent hemodynamic instability -on Phenylephrine 50 this morning. Becomes hypotensive when taken off completely -requires some sedation (precedex and fentanyl), without which he has paroxysmal tachycardic episodes. Low grade fever -temperature hovers around 38C, receiving 1000 mg tylenol PRN DVT prophylaxis -on Eliquis 3+ pitting edema bilateral feet -SCDs in place, boots on feet Trotter catheter in place. NNAMDI KRUSE MD 05/06/21 0911: Subjective Date Seen by a Provider: May 04, 2021 Supervisory-Addendum Brief Verification & Attestation Participated in pt care: history, MDM, physical Personally performed: history, MDM, supervision of care Care discussed with: Medical Student Procedures: n/a A medical student performed and documented this service. I reviewed all information documented by the medical student . Medical student performed patients physical exam . Medical decision making was done during tele-rounds with this medical student and a bedside RN . Please see my notes for details /clarification. VIRIDIANA YOUNG MED STUDENT May 04, 2021 14:14 NNAMDI KRUSE MD May 06, 2021 09:11
== END 2021-05-04 15:35 | DRG 4 ==
LOC: EDUNIT# 14:35 → ER FS 14:35 → UNDOADMIN 16:30 → CSD 16:30 → ICU 04-13 11:51 → CSD 04-21 16:32 → ICU 04-21 17:05
PROVIDERS: ADMIT Internal Medicine; ATTEND Internal Medicine
PROC: 5A1955Z Respiratory Ventilation, Greater than 96 Consecutive Hours (ICD-10-PCS; 2021-04-13)
PROC: 02HV33Z Insertion of Infusion Device into Superior Vena Cava, Percutaneous Approach (ICD-10-PCS; 2021-04-13)
PROC: 03HY32Z Insertion of Monitoring Device into Upper Artery, Percutaneous Approach (ICD-10-PCS; 2021-04-13)
PROC: 0BH17EZ Insertion of Endotracheal Airway into Trachea, Via Natural or Artificial Opening (ICD-10-PCS; 2021-04-13)
PROC: 0DH63UZ Insertion of Feeding Device into Stomach, Percutaneous Approach (ICD-10-PCS; 2021-04-30)
PROC: 0DJ08ZZ Inspection of Upper Intestinal Tract, Via Natural or Artificial Opening Endoscopic (ICD-10-PCS; 2021-04-30)
PROC: 0BC88ZZ Extirpation of Matter from Left Upper Lobe Bronchus, Via Natural or Artificial Opening Endoscopic (ICD-10-PCS; principal; 2021-04-30 13:55)
PROC: 0B113F4 Bypass Trachea to Cutaneous with Tracheostomy Device, Percutaneous Approach (ICD-10-PCS; 2021-04-30 13:55)
DX: U07.1 COVID-19 (principal); J12.82 Pneumonia due to coronavirus disease 2019; J80 Acute respiratory distress syndrome; J15.9 Unspecified bacterial pneumonia; I21.4 Non-ST elevation (NSTEMI) myocardial infarction; D68.69 Other thrombophilia; N17.9 Acute kidney failure, unspecified; R57.9 Shock, unspecified; E46 Unspecified protein-calorie malnutrition; D74.9 Methemoglobinemia, unspecified; I48.19 Other persistent atrial fibrillation; Z79.82 Long term (current) use of aspirin; Z79.899 Other long term (current) drug therapy; M19.90 Unspecified osteoarthritis, unspecified site; Z87.891 Personal history of nicotine dependence; E78.00 Pure hypercholesterolemia, unspecified; F41.9 Anxiety disorder, unspecified; D72.829 Elevated white blood cell count, unspecified; T38.0X5A Adverse effect of glucocorticoids and synthetic analogues, initial encounter; E78.2 Mixed hyperlipidemia; R00.1 Bradycardia, unspecified; R60.9 Edema, unspecified; R50.9 Fever, unspecified; R73.9 Hyperglycemia, unspecified; R00.0 Tachycardia, unspecified; I10 Essential (primary) hypertension; G40.909 Epilepsy, unspecified, not intractable, without status epilepticus; E66.9 Obesity, unspecified; Z68.28 Body mass index [BMI] 28.0-28.9, adult
CPT/HCPCS: 36415; 36569; 71045; 71250; 71275; 74018; 74022; 74177; 76937; 80048; 80053; 80061; 80076; 80202; 81000; 82533; 82805; 82947; 83605; 83735; 83880; 84100; 84145; 84478; 84484; 85007; 85025; 85027; 85379; 85610; 86141; 87040; 87070; 87077; 87081; 87186; 87205; 87449; 93005; 94002; 94003; 94640; 94660; 94664; 94760; 94799; 96372; 96374; 96375

== ENCOUNTER 2021-08-04 09:19 | Inpatient (IN) | payer BC, MEDICARE ==
[~2021-08-04] VITALS: Ht 195 cm; Wt 75.1 kg
[~2021-08-04 09:19] MED LIST changes: +APIX5TAB PO; +ATOR10TA66 PO; +LORA2VIA3 IVP; +METO5VIA3 IVP; +PROP10VI48 IV
[2021-08-04] MEDS ORDERED: DOCUSATE SODIUM 100 MG (COLACE) CAP PO PRN (10:00)
[2021-08-04] MEDS ORDERED: BISACODYL 10 MG SUPP (DULCOLAX) PR PRN (10:00)
[2021-08-04] MEDS ORDERED: CALCIUM CARBONATE 500 MG (TUMS) TAB.CHEW PO PRN (10:00)
[2021-08-04] MEDS ORDERED: LACTULOSE SYRUP 10GM/15ML (ENULOSE) 30ML UDC PO PRN (10:00)
[2021-08-04] MEDS ORDERED: diphenhydrAMINE 25 MG TAB (BENADRYL) PO PRN (10:00)
[2021-08-04] MEDS ORDERED: guaiFENesin/CODEINE (ROBITUSSIN AC) 10ML UDC PO PRN (10:00)
[2021-08-04] MEDS ORDERED: ONDANSETRON 4 MG (ZOFRAN) ORAL DISSOLVE TAB PO PRN (10:00)
[2021-08-04] MEDS ORDERED: ALPRAZolam 0.25 MG (XANAX) TAB PO PRN (10:00)
[2021-08-04] MEDS ORDERED: FLEET ENEMA ADULT 1 EA BTL PR PRN (10:00)
[2021-08-04] MEDS ORDERED: MELATONIN 3 MG TABLET PO PRN (10:00)
[2021-08-04] MEDS ORDERED: LOPERAMIDE 2 MG (IMODIUM) TABLET PO PRN (10:00)
--- NOTE | 2021-08-04 12:52 | PM&R Post Admission Assessment ---
PM&R HP Date of Visit: Aug 04, 2021 Time of Visit: 12:50 History of Present Illness CC: Recovery from three month stay for Covid-19 pneumonia with myopathy HPI: This is a 76yoWM known to me from acute respiratory failure due to covid from three months ago, required a peg tube and trach placement, had issues with bradycardia AFIB with RVR, maintain on Amiodarone with a DVT s/p filter with acute kidney injury who presented to inpatient rehab in need of aggressive rehab to recovery and return back to independent living. I took care of him in the ICU when he was here in April at the same time I was taking care of his at [facility] [place] due to Covid. Prior level of functioning was independent without the use of assistive device, he was working at the [employer] and current level of function is max-assist on bed mobility and transfer with use of stand-assist lift. His bowels are moving well and he is able to eat a dysphasia two diet. Past Mzacdju-Bbihle-Jmiwrz Hx Past Med/Social Hx: Reviewed Nursing Past Med/Soc Hx, Reviewed and Corrections made Patient Social History Marrital Status: Employed/Student: retired Alcohol Use: Denies Use Smoking Status: Former Smoker Recent Hopitalizations: No Seasonal Allergies Seasonal Allergies: No Past Medical History Respiratory: Pneumonia Cardiac: Atrial Fibrillation, High Cholesterol, Hypertension Reproductive: No Sexually Transmitted Disease: No Genitourinary: Renal Failure Gastrointestinal: Gastroesophageal Reflux Musculoskeletal: Arthritis History of Blood Disorders: No Family History No Pertinent Family Hx PM&R Allergy/Meds/Data Review Allergies Coded Allergies: No Known Drug Allergies (Unverified , 03/11/11) Home Medications Scheduled Amiodarone HCl (Amiodarone HCl), 200 MG PO DAILY, (Reported) Docusate Sodium (Docusate Sodium), 100 MG PO BID, (Reported) Famotidine (Famotidine), 20 MG PO DAILY, (Reported) Folic Acid/Vitamin B Comp W-C (Grazyna-Eyssy Tablet), 0.8 MG PO DAILY, (Reported) Gabapentin (Gabapentin), 100 MG PO Q8H, (Reported) Heparin Sodium,Porcine (Heparin Sodium), 5,000 UNIT IJ Q8H, (Reported) Lactobacillus Acidophilus/Pect (Acidophilus-Pectin Capsule), 1 EACH PO BID, (Reported) Midodrine HCl (Midodrine HCl), 5 MG PO Q8H, (Reported) Scheduled PRN Menthol/Camphor/Dimeth/Phenol (Blistex Medicated Lip Ointment), 1 APPLIC TP EVERY 2 HOURS PRN for DRY LIPS, (Reported) Oxycodone HCl/Acetaminophen (Oxycodone-Acetaminophen 5-325), 1 EACH PO Q6H PRN for PAIN-SEVERE, (Reported) Polyethylene Glycol 3350 (Miralax), 17 GM PO DAILY PRN for CONSTIPATION-2ND LINE, (Reported) Discontinued Medications Apixaban (Eliquis), 5 MG PO BID Discontinued Reason: No Longer Taking Atorvastatin Calcium (Atorvastatin Calcium), 10 MG PO DAILY, (Reported) Discontinued Reason: No Longer Taking Lorazepam (Lorazepam), 0.5 MG IVP ONCE PRN for ANXIETY Discontinued Reason: No Longer Taking Metoclopramide HCl (Metoclopramide HCl), 10 MG IVP Q6HR PRN for RESIDUALS Discontinued Reason: No Longer Taking Propofol (Diprivan), 10 MG IV UD Discontinued Reason: No Longer Taking Current Medications Current Medications Reviewed Review of Systems Constitutional: see HPI, malaise, weakness EENTM: no symptoms reported Respiratory: no symptoms reported Cardiovascular: no symptoms reported Gastrointestinal: no symptoms reported Genitourinary: no symptoms reported Musculoskeletal: back pain Skin: no symptoms reported Psychiatric/Neurological: No Symptoms Reported All Other Systems Reviewed Negative Unless Noted: Yes Physical Exam Physical Exam Vital Signs Capillary Refill : Height, Weight, BMI Height: '" Weight: lbs. oz. kg; 21.43 BMI Method: General Appearance: No Apparent Distress, WD/WN, Chronically ill, Thin Eyes: Bilateral Eye Normal Inspection, Bilateral Eye PERRL HEENT: PERRL/EOMI, Normal ENT Inspection, Pharynx Normal Neck: Full Range of Motion, Normal Inspection, Non Tender, Supple, Carotid Bruit Respiratory: Chest Non Tender, Lungs Clear, Normal Breath Sounds, No Accessory Muscle Use, No Respiratory Distress Cardiovascular: Regular Rate, Rhythm, No Edema, No Gallop, No JVD, No Murmur, Normal Peripheral Pulses Gastrointestinal: Normal Bowel Sounds, No Organomegaly, No Pulsatile Mass, Non Tender, Soft Back: Normal Inspection, No CVA Tenderness, No Vertebral Tenderness Extremity: Normal Capillary Refill, Normal Inspection, Normal Range of Motion, Non Tender, No Calf Tenderness, No Pedal Edema Neurologic/Psychiatric: Alert, Oriented x3, No Motor/Sensory Deficits, Normal 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, 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 Norm as Tested, Motor Weakness (Severe muscle weakness upper and lower extremities) Skin: Normal Color, Warm/Dry Lymphatic: No Adenopathy PM&R Medical Assessment & Plan REHAB/MEDICAL ASSESSMENT AND PLAN: REHAB 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 The comorbidities that impact the patients function and/or functional outcome by: 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 The patient has potential to make improvement and is in need of at least two of the following multidisciplinary therapies including but not limited to physical, occupational, speech, and prosthetics and orthotics. Additionally the patient will need services from respiratory, nutritional services, wound care, psychology, etc. (Customize this to each patient). Given the patients complex condition and risk of further medical complications, rehabilitation services cannot be safely or effectively provided at a lower level of care such as a snf facility. BARRIERS TO DISCHARGE: Severe myopathy ESTIMATED LOS: 14 days DISPOSITION: Home with RELEVANT CHANGES SINCE PREADMISSION SCREENING: I have compared the patients medical and functional status at the time of the preadmission screening and there are: No changes PROGNOSIS: Good REHABILITATION GOALS: 1. PT and OT will focus on regaining muscle strength with the use of assistive devices in order to return back to independent living All the above goals were reviewed with the patient and he/she is in agreement. By signing this document, I acknowledge that I have personally performed a full physical examination on this patient within 24 hours of admission to this inpatient rehabilitation facility and have determined the patient to be able to tolerate the above course of treatment at an intensive level for a reasonable period of time. I will be completing a detailed individualized Plan of Care for this patient by day #4 of the patients stay based upon the Preadmission Screen, the Post-Admission Evaluation, and the therapy evaluations. Admission Dx/Comorbidities: (1) Myopathy ICD Codes: G72.9 - Myopathy, unspecified (2) Acute respiratory failure due to COVID-19 Status: Acute ICD Codes: U07.1 - COVID-19; J96.00 - Acute respiratory failure, unspecified whether with hypoxia or hypercapnia (3) Hypercoagulable state associated with COVID-19 Status: Acute ICD Codes: U07.1 - COVID-19; D68.69 - Other thrombophilia (4) Persistent atrial fibrillation ICD Codes: I48.19 - Other persistent atrial fibrillation (5) Mixed hyperlipidemia ICD Codes: E78.2 - Mixed hyperlipidemia (6) HAYDE (acute kidney injury) Status: Acute ICD Codes: N17.9 - Acute kidney failure, unspecified Assessment/Plan Assessment and Plan Assess & Plan/Chief Complaint Assessment: Critical illness myopathy COVID-19 pneumonia April 2021 Status post ventilator dependence Atrial fibrillation during intubation Cardiac arrest x2 Previous smoker Weight loss Plan: Inpatient rehab protocol Pain control Cardiology consult COTY SHIPMAN DO Aug 04, 2021 12:52
[2021-08-04] MEDS ORDERED: DOCU100C37 PO (13:03)
[2021-08-04] MEDS ORDERED: MENT6OIN2 TP (13:03)
[2021-08-04] MEDS ORDERED: MIDO5TAB3 PO (13:03)
[2021-08-04] MEDS ORDERED: POLY17PO6 PO (13:03)
[2021-08-04] MEDS ORDERED: FAMO20TA5 PO (13:03)
[2021-08-04] MEDS ORDERED: FOLI0.8T21 PO (13:03)
[2021-08-04] MEDS ORDERED: AMIO200T65 PO (13:03)
[2021-08-04] MEDS ORDERED: OXYC1TAB11 PO (13:03)
[2021-08-04] MEDS ORDERED: HEPA500018 IJ (13:03)
[2021-08-04] MEDS ORDERED: LACT1CAP76 PO (13:03)
[2021-08-04] MEDS ORDERED: GABA-486 PO (13:03)
[2021-08-04 13:15] VITALS: BP 108/73
--- NOTE | 2021-08-04 13:25 | ST Cognitive Linguistic Eval ---
Speech Evaluation-General Medical Diagnosis s/p COVID Onset Date: Aug 04, 2021 Therapy Diagnosis Therapy Diagnosis: Cognitive Linguistic Function Within Normal Limits Precautions Precautions: Fall Precautions/Isolations: Standard Precautions Referral Referring Physician: Dr. Hardin Reason for Referral: Evaluation/Treatment Medical History Pertinent Medical History: Atrial Fib, Arthritis, HTN Current History The patient is a 76 year-old male with a past medical history of tobacco use (prior), pneumonia, atrial fibrillation, high cholesterol, HTN, renal failure, arthritis, and GERD, who presented to [facility] from [place] following acute respiratory failure secondary to COVID (prior PEG and tracheostomy tube). Reviewed History: Yes Social History Current Living Status: Other Family (Mother) Speech PLF-Current Status Prior Level of Function The patient lived at home, independently, prior to initial hospitalization secondary to COVID. Subjective The patient was seated upright in bed, awake and alert upon entrance. The patient greeted the clinician appropriately and was agreeable to participation in the cognitive linguistic assessment. The patient denied challenges with speech, language, cognition, or swallowing. The patient independently sipped iced tea at bedside throughout the evaluation without s/s of suspected aspiration. Language Eval: Auditory Comprehends Simple Yes/No Ques: Functional Indent/Objects Multiple Nettles: Functional Ident/Pics in Multiple Nettles: Functional Follows 1-Step Commands: Functional Follows Complex Directions: Functional Follows General Conversations: Functional Language Eval: Verbal Language Completes Spontaneous Greeting: Functional Produces Auto, Serial Info: Functional Imitates Simple Words/Phrases: Functional Word Finding: Functional Requests Basic Needs: Functional States Basic Personal Info: Functional Expresses Complex Ideas: Functional Language Evaluation: Reading Comprehends Single Nouns: Functional Follows Simple Written Direct: Functional Language Evaluation: Writing Writes to Simple Dictation: Functional Cognitive Patient Orientation The patient is independently oriented to self, location, city, month, day of week, date, and year. Objective Cognitive Domain Attention: WNL Memory: WNL Problem Solving: Functional Executive Functions: WNL Clock Drawing Severity Rating: WNL Objective Formal/Standardized Tests [facility] Mental Status (UMS) Results The patient displayed a result of +28/30 on the SLUMS correlating to a neurocognitive function within normal limits. Oral Motor/Speech Production The patient does not demonstrate dysarthria or apraxia of speech. The patient remains 100% intelligible in known and unknown contexts. Impression The patient is a 76 year-old male, who presented with a neurocognitive function within normal limits. The patient demonstrated two errors with delayed recall of single words following a five minute delay. With category cues, the patient was able to recall the two words for the clinician. Speech Patient Assess Expression of Ideas/Wants: Expression (4) Understanding Verbal Content: Understands (4) Brief Interview-Mental Status: Yes Repetition of Three Words: Three (3) Temporal Orientation: Year: Correct (3) Temporal Orientation: Month: Accurate within 5 days(2) Temporal Orientation: Day: Correct (1) Recall : Wear to say "Sock": Yes, no cue required (2) Recall : Color: Yes, after cueing (1) Recall : Bed: Yes,after cueing (1) Memory/Recall Ability: Current season, That he or she is in a hsp/hsp unit Speech-Plan Patient/Family Goals Patient/Family Goals: The patient wishes to return to [facility], where he plans to reside with his mom. Treatment Plan Speech Therapy Treatment Plan: Discontinue ST Frequency: 1 time per week Estimated Hrs Per Day: .5 hour per day Rehab Potential: Fair Barriers to Learning: None identified. Pt/Family Agrees to Plan: Yes Safety Risks/Education Teaching Recipient: Patient Teaching Methods: Discussion Response to Teaching: Verbalize Understanding Education Topics Provided: Results of SLUMS, Plan of Care, Rehabilitation Process Time Speech Therapy Time In: 12:45 Speech Therapy Time Out: 13:15 Total Billed Time: 30 Billed Treatment Time 1, BOBBI SIM [facility]IZAB[facility] ST Aug 04, 2021 13:25
--- NOTE | 2021-08-04 14:43 | Physical Therapy Evaluation ---
PT Evaluation-General Medical Diagnosis Admission Date Aug 04, 2021 at 12:10 Medical Diagnosis: covid 19, debility Onset Date: May 07, 2021 Therapy Diagnosis Therapy Diagnosis: impaired mobility, strength, endurance Precautions Precautions/Isolations: Fall Prevention, Standard Precautions, Pressure Ulcer Referral Physician: Maggie Hardin DO Reason for Referral: Evaluation/Treatment Medical History Pertinent Medical History: HTN Additional Medical History bradycardia, IVC filter Reviewed History: Yes Social History Home: Single Level Current Living Status: Spouse Entry Into Home: Stairs Without Railing PT Steps Into Home: 3 Prior Prior Level of Function SCALE: Activities may be completed with or without assistive devices. 5-Wjaiheldsg-poibajo completes the activity by him/herself with no assistance from a helper. 5-Set-up or Clean-up Assistance-helper sets up or cleans up; patient completes activity. [place] assists only prior to or following the activity. 4-Supervision or Touching Assistance-helper provides verbal cues and/or touching/steadying and/or contact guard assistance as patient completes activity. Assistance may be provided throughout the activity or intermittently. 3-Partial/Moderate Assistance-helper does LESS THAN HALF the effort. [place] lifts, holds or supports trunk or limbs, but provides less than half the effort. 2-Substantial/Maximal Assistance-helper does MORE THAN HALF the effort. [place] lifts or holds trunk or limbs and provides more than half the effort. 7-Zsrrjvtyg-gbmoji does ALL the effort. Patient does none of the effort to complete the activity. Or, the assistance of 2 or more helpers is required for the patient to complete the activity. If activity was not attempted, code reason: 7-Patient Refused. 9-Not Applicable-not attempted and the patient did not perform the activity before the current illness, exacerbation or injury. 10-Not Attempted due to Environmental Limitations-(lack of equipment, weather restraints, etc.). 88-Not Attempted due to Medical Conditions or Safety Concerns. Bed Mobility: 6 Transfers (B,C,W/C): 6 Gait: 6 Stairs: 6 Indoor Mobility (Ambulation): Independent Stairs: Independent PT Evaluation-Current Subjective Patient in bed pre tx, agrees to PT, has no complaints of pain. Pt/Family Goals to be independent at home Objective Patient Orientation: Person, Place, Situation Attachments: PEG Tube ROM/Strength ROM Lower Extremities patient has limited knee flexion (about 90 degrees both sides), and has bilateral plantarflexion contractures of about 10-15 degrees Strength Lower Extremities LLE (hip flexion 3+/5, knee flexion 3+/5, knee extension 3+/5, dorsiflexion 3+/5), RLE (hip flexion 3+/5, knee flexion 3+/5, knee extension 3+/5, dorsiflexion 3+/5) Sensory Vision: Functional Hearing: Functional Sensation Right Lower Extremit: Intact Sensation Left Lower Extremity: Intact Transfers Roll Left & Right (QC): 6 Sit to Lying (QC): 3 Lying to Sitting/Side of Bed(Q: 3 Sit to Stand (QC): 1 Chair/Dys-yn-Wsddb Xfer(QC): 1 Toilet Transfer (QC): 1 Car Transfer (QC): 1 Patient rolls independently, supine to sit mod assist, sit to supine min assist, sit to stand dependent, transfers dependent (using sit to stand machine), car transfer dependent. Patient also performs a sliding board transfer with mod assist. When patient stands with therapist assist he is very retropulsive, flexed severely at the waist, will not straighten up even with assist of multiple people, when assist is tried he steps his feet forward and if he would do this very far at all he would just fall to the floor. Attempted to use standing frame but could not do it from the WC level because his knees dont flex enough, transferred to therapy table where we can elevate the table and he has to bend his knees less but the sling just slid out from beneath him. Will have to brainstorm to try to devise a safe way for him to stand. Gait Does the Patient Walk?: No and Walking Goal NOT indicated Walk 10 feet (QC): 88 Walk 50 ft with 2 Turns(QC): 88 Walk 150 ft (QC): 88 Walking 10ft/uneven surface-QC: 88 Wheelchair Training Wheel 50 ft with 2 turns (QC): 4 Wheel 150 ft (QC): 4 Type of Wheelchair: Manual 150', very slow, needs several rest breaks Stairs 1 Step (curb) (QC): 88 4 Steps (QC): 88 12 Steps (QC): 88 Balance Sitting Static: Fair Sitting Dynamic: Poor Standing Static: Poor Standing Dynamic: Poor Picking up an Object (QC): 88 Treatment Patient is bathed and dressed, transferred to shower chair undressed LE along the way, taken to shower room, undressed, showered, taken back to his room, dresses mostly, sit to stand machine back to bed dressing fully along the way. PT performed bed mobility and transfers, standing, positioning and safety during dressing and bathing, OT performed dressing, bathing, UE positioning and safety during activity, assist with transfers. Assessment/Needs Patient in bed post tx with nurse call, phone, tray, all needs met. Patient has impaired mobility, strength, endurance. Stand pivot transfer is not safe to attempt at this time. Rehab Potential: Fair PT Short Term Goals Short Term Goals Time Frame: Aug 11, 2021 Roll Left & Right: 6 Sit to lyin Lying to sitting on side of be: 3 Sit to stand: 2 Chair/fsy-ap-tthnn transfer: 3 PT Jail Goals Jail Goals PT Applications Programmer Analyst Goals Time Frame: Aug 25, 2021 Roll Left & Right (QC): 6 Sit to Lying (QC): 6 Lying-Sitting on Side/Bed(QC): 6 Sit to Stand (QC): 3 Chair/Hpj-dg-Wpeqg Xfer(QC): 3 Toilet Transfer (QC): 3 Car Transfer (QC): 3 Does the Patient Walk: No and Walking Goal NOT indicated Walk 10 feet (QC): 88 Walk 50ft with 2 Turns (QC): 88 Walk 150 ft (QC): 88 Walking 10ft on Uneven Surface: 88 1 Step (curb) (QC): 88 4 Steps (QC): 88 12 Steps (QC): 88 Picking up an Object (QC): 88 Wheel 50 feet with 2 turns (QC: 6 Wheel 150 feet: 6 PT Plan Problem List Problem List: Activity Tolerance, Functional Strength, Safety, Balance, Gait, Transfer, Bed Mobility, ROM Treatment/Plan Treatment Plan: Continue Plan of Care Treatment Plan: Bed Mobility, Education, Functional Activity Glo, Functional Strength, Group Therapy, Gait, Safety, Therapeutic Exercise, Transfers Treatment Duration: Aug 25, 2021 Frequency: At least 5 of 7 days/Wk (IRF) Estimated Hrs Per Day: 1.5 hours per day Patient and/or Family Agrees t: Yes Safety Risks/Education Patient Education: Transfer Techniques, Correct Positioning, W/C Management, Safety Issues Teaching Recipient: Patient Teaching Methods: Demonstration, Discussion Response to Teaching: Reinforcement Needed Discharge Recommendations Plan Patient will perform bed mobility and transfer training, balance and endurance training, functional strengthening, gait training, and education, to improve functional mobility and independence at home. Therapy Discharge Recommendati: Scheduled Assistance, Home & Family, Post Acute PT Time/GCodes Time In: 1315 Time Out: 1440 Total Billed Treatment Time: 75 Total Billed Treatment 1 visit EVM 10' FA 65' PT eval from 7440-1300, OT eval from [id number], co-treat from 2023-0310 FLASH ALLEN PT Aug 04, 2021 14:43
--- NOTE | 2021-08-04 14:51 | Occupational Therapy Eval ---
OT Evaluation-General/PLF Medical Diagnosis Admission Date Aug 04, 2021 at 12:10 Medical Diagnosis: critical illness myopathy Onset Date: May 07, 2021 Therapy Diagnosis Therapy Diagnosis: decreased ADL status, weakness Precautions Precautions/Isolations: Fall Prevention, Standard Precautions, Pressure Ulcer Referral Physician: Wilfred Peralta Reason: Evaluation/Treatment Medical History Additional Medical History Arthritis Current History AHRF due to COVID PNA/pseudomonas. s/p PEG and trach. recent Afib with RVR, s/p IVC filter, HTN, HAYDE, anemia s/p transfusion 2 units 06/09. 08/04 Transferred to [facility] for continued medication management and skilled therapy Social History Home: Single Level Current Living Status: Spouse Entry Into Home: Stairs Without Railing Steps Into Home: 3 ADL-Prior Level of Function SCALE: Activities may be completed with or without assistive devices. 3-Ttvejjvdtu-eskmwgc completes the activity by him/herself with no assistance from a helper. 5-Set-up or Clean-up Assistance-helper sets up or cleans up; patient completes activity. [place] assists only prior to or following the activity. 4-Supervision or Touching Assistance-helper provides verbal cues and/or touching/steadying and/or contact guard assistance as patient completes activity. Assistance may be provided throughout the activity or intermittently. 3-Partial/Moderate Assistance-helper does LESS THAN HALF the effort. [place] lifts, holds or supports trunk or limbs, but provides less than half the effort. 2-Substantial/Maximal Assistance-helper does MORE THAN HALF the effort. [place] lifts or holds trunk or limbs and provides more than half the effort. 2-Ybeygjmve-hbugco does ALL the effort. Patient does none of the effort to complete the activity. Or, the assistance of 2 or more helpers is required for the patient to complete the activity. If activity was not attempted, code reason: 7-Patient Refused. 9-Not Applicable-not attempted and the patient did not perform the activity before the current illness, exacerbation or injury. 10-Not Attempted due to Environmental Limitations-(lack of equipment, weather restraints, etc.). 88-Not Attempted due to Medical Conditions or Safety Concerns. ADL PLOF Comments Pt IND with ADLs and functional mobility at [facility], no AE/AD. He was working at the local [employer], walking ~11 miles daily. 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 Upper Extremity Strength grossly 3/5 BUEs ADL-Treatment Eating (QC): 6 (IND with lunch per report.) Oral Hygiene (QC): 5 (per clincial judgment, set up with task.) Shower/Bathe Self (QC): 1 (Sit to stand lift utilized to thoroughly wash/dry buttocks. Pt able to wash UEs, chest/abdomen, periarea and BLEs seated. OT assisted with buttocks.) Upper Body Dressing (QC): 3 (Pt doffed/donned button up shirt. Assistance provided with buttons and with threading LUE.) Lower Body Dressing (QC): 1 (Sit to stand lift utilized. Assistance with all parts. ) On/Off Footwear (QC): 1 (Total assist doffing/donning gripper socks, pt unable to reach feet.) Toileting Hygiene (QC): 1 (sit to stand lift for clothing managment and hygiene.) Other Treatments OT evaluation complete. OT/PT cotreat due to skill of 2 clinicians required which a rehab trainer could not perform in order to coordinate UE/LEs, decrease fall risk, and due to pt's limitations in strength, activity tolerance, mobility, transfers and balance. OT focused on UE placement, cues for sequencing and safety, and ADLs, PT focused on LE placement, gross overall movement, transfers/mobility. Pt transferred supine to sit EOB, sit to stand lift used to transfer to w/c. Pt performed w/c mobility around [facility] common area/2nd floor, then pt taken into therapy gym. Pt stood in parallel bars x1, cues given to encourage pt to stand upright, retropulsion in standing noted. Pt unable to straighten up even with multiple people assisting, he tends to step forward with his feet instead. Standing frame attempted, but unable to position due to pt having difficulty flexing his knees. Pt completed SB transfer from w/c to EOM, standing frame attempted again from higher surface, but pt the sling slid out from beneath him. Pt transferred to OH, taken to large shower room. Shower complete, pt taken back to his room where dressing was performed. Nurse present to assess skin tears BUEs. Sit to stand lift from w/c to bed. Post tx, pt laying in bed, call light in reach and all needs met. IND rolling, Mod A supine to sit, Min A sit to supine, total assist sit to stand and transfers (sit to stand lift), Mod A slide board. Education OT Patient Education: Correct positioning, Energy conservation, Exercise program, Modified ADL techniques, Progress toward Goal/Update tx plan, Purpose of tx/functional activities, Rehab process Teaching Recipient: Patient Teaching Methods: Discussion Response to Teaching: Verbalize Understanding OT Short Term Goals Short Term Goals Time Frame: Aug 18, 2021 Toileting hygiene: 3 Shower/bathe self: 3 Upper body dressin Lower body dressin Putting on/taking off footwear: 3 OT Piping Design Specialist Goals Skilled Nursing Goals Time Frame: Sep 03, 2021 Eating (QC): 6 Oral Hygiene (QC): 6 Toileting Hygiene (QC): 6 Shower/Bathe Self (QC): 6 Upper Body Dressing (QC): 6 Lower Body Dressing (QC): 6 On/Off Footwear (QC): 6 Additional Goals: 1-Demonstrate ADL Tasks, 2-Verbalize Understanding, 3- ImproveStrength/Glo 1=Demonstrate adherence to instructed precautions during ADL tasks. 2=Patient will verbalize/demonstrate understanding of assistive d evices/modifications for ADL. 3=Patient will improve strength/tolerance for activity to enable patient to perform ADL's. OT Education/Plan Problem List/Assessment Assessment: Decreased Activ Tolerance, Decreased UE Strength, Dependent Transfers, Impaired Coordination, Impaired Funct Balance, Impaired I ADL's, Impaired Self-Care Skills, Restricted Funct UE ROM Discharge Recommendations Plan/Recommendations: Continue POC Treatment Plan/Plan of Care Patient would benefit from OT for education, treatment and training to promote independence in ADL's, mobility, safety and/or upper extremity function for ADL's. Plan of Care: ADL Retraining, Functional Mobility, Group Exercise/Act as Ind, UE Funct Exercise/Act Treatment Duration: Sep 03, 2021 Frequency: At least 5 of 7 days/Wk (IRF) Estimated Hrs Per Day: 1.5 hours per day Agreement: Yes Rehab Potential: Fair Time/GCodes Start Time: 13:25 Stop Time: 14:40 Total Time Billed (hr/min): 75 Billed Treatment Time [id number] OT evaluation, [id number] OT/PT cotreat 1, EVM (10'), FA 2 (30'), ADL 2 (35') ADAM FISHER OT Aug 04, 2021 14:51
[2021-08-04] MEDS ORDERED: oxyCODONE/APAP 5/325MG (PERCOCET 5) TABLET PO PRN (16:15)
[2021-08-04] MEDS ORDERED: polyethylene glycoL POWDER 17 GM (MIRALAX) PACK PO PRN (16:15)
[2021-08-04] MEDS ORDERED: CAMPHOR TP PRN (16:45)
[2021-08-04] MEDS ORDERED: MENTHOL TP PRN (16:45)
[2021-08-04] MEDS ORDERED: PHENOL TP PRN (16:45)
[2021-08-04] MEDS: MIDODRINE 10 MG (PROAMATINE) TAB PO SCH (18:09)
[2021-08-04] MEDS: GABAPENTIN 100 MG (NEURONTIN) CAP PO SCH (18:09)
[2021-08-04] MEDS: DOCUSATE SODIUM 100 MG (COLACE) CAP PO SCH ×2 (19:20)
[2021-08-04] MEDS: polyethylene glycoL POWDER 17 GM (MIRALAX) PACK PO SCH (19:20)
[2021-08-04] MEDS: SENNA W/DOCUSATE (SENOKOT S) TABLET PO SCH (19:21)
[2021-08-04] MEDS: LACTOBACILLUS ACIDOPHILUS (PROBIOTIC) CAPSULE PO SCH (19:49)
[2021-08-04 19:58] VITALS: BP 98/58
[2021-08-05] MEDS: MULTIVIT W/MINERALS TAB (THERAGRAN M) PO SCH (06:04)
[2021-08-05 06:31] LABS: BASOPHILS # (AUTO) 0.1 10^3/uL (0.0-0.1); BASOPHILS % (AUTO) 2 % (0-10); EOSINOPHILS # (AUTO) 0.1 10^3/uL (0.0-0.3); EOSINOPHILS % (AUTO) 1 % (0-10); HEMATOCRIT 30 % (40-54); HEMOGLOBIN 9.6 g/dL (13.3-17.7); LYMPHOCYTES % (AUTO) 33 % (12-44); MEAN CORPUSCULAR HEMOGLOBIN 31 pg (25-34); MEAN CORPUSCULAR HGB CONC 32 g/dL (32-36); MEAN CORPUSCULAR VOLUME 96 fL (80-99); MEAN PLATELET VOLUME 9.4 fL (9.0-12.2); MONOCYTES # (AUTO) 0.5 10^3/uL (0.0-1.0); MONOCYTES % (AUTO) 9 % (0-12); NEUTROPHILS # (AUTO) 3.4 10^3/uL (1.8-7.8); NEUTROPHILS % (AUTO) 55 % (42-75); PLATELET COUNT 335 10^3/uL (130-400); WHITE BLOOD COUNT 6.1 10^3/uL (4.3-11.0)
[2021-08-05 06:33] LABS: ALBUMIN 3.3 GM/DL (3.2-4.5); POTASSIUM 4.1 MMOL/L (3.6-5.0)
[2021-08-05 06:34] LABS: CALCIUM 8.8 MG/DL (8.5-10.1)
[2021-08-05 06:35] LABS: TOTAL PROTEIN 6.5 GM/DL (6.4-8.2)
[2021-08-05 06:37] LABS: BILIRUBIN,TOTAL 0.4 MG/DL (0.1-1.0)
[2021-08-05 06:39] LABS: CREATININE SERUM 1.54 MG/DL (0.60-1.30)
[2021-08-05 07:31] VITALS: BP 103/69
[2021-08-05] MEDS: FAMOTIDINE 20 MG (PEPCID) TABLET PO SCH (08:11)
[2021-08-05] MEDS: MIDODRINE 10 MG (PROAMATINE) TAB PO SCH ×3 (08:11→17:07)
[2021-08-05] MEDS: LACTOBACILLUS ACIDOPHILUS (PROBIOTIC) CAPSULE PO SCH ×2 (08:11→20:00)
[2021-08-05] MEDS: GABAPENTIN 100 MG (NEURONTIN) CAP PO SCH ×3 (08:11→17:07)
[2021-08-05] MEDS: DOCUSATE SODIUM 100 MG (COLACE) CAP PO SCH ×4 (08:14→19:51)
[2021-08-05] MEDS: polyethylene glycoL POWDER 17 GM (MIRALAX) PACK PO SCH ×2 (08:14→19:51)
[2021-08-05] MEDS: SENNA W/DOCUSATE (SENOKOT S) TABLET PO SCH ×2 (08:14→19:51)
[2021-08-05] MEDS ORDERED: AMIODARONE 200 MG (CORDARONE) TAB PO SCH (09:00)
--- NOTE | 2021-08-05 09:57 | Physical Therapy Daily Note ---
PT Daily Note-Current Subjective Patient in bed pre tx, agrees to PT, has no complaints of pain. Will be co- treating with OT due to poor patient mobility, strength, endurance, severe SOB with activity, coordinate UE and LE during activity, safety and reduce risk of falls. Appearance Patient in bed post tx with nurse call, phone, tray, all needs met. Mental Status Patient Orientation: Person, Place, Situation Attachments: PEG Tube Transfers SCALE: Activities may be completed with or without assistive devices. 6-Pnyrzwzuua-avmlgop completes the activity by him/herself with no assistance from a helper. 5-Set-up or Clean-up Assistance-helper sets up or cleans up; patient completes activity. [place] assists only prior to or following the activity. 4-Supervision or Touching Assistance-helper provides verbal cues and/or touching/steadying and/or contact guard assistance as patient completes activity. Assistance may be provided throughout the activity or intermittently. 3-Partial/Moderate Assistance-helper does LESS THAN HALF the effort. [place] lifts, holds or supports trunk or limbs, but provides less than half the effort. 2-Substantial/Maximal Assistance-helper does MORE THAN HALF the effort. [place] lifts or holds trunk or limbs and provides more than half the effort. 1-Wmkifpxpq-oklhov does ALL the effort. Patient does none of the effort to complete the activity. Or, the assistance of 2 or more helpers is required for the patient to complete the activity. If activity was not attempted, code reason: 7-Patient Refused. 9-Not Applicable-not attempted and the patient did not perform the activity before the current illness, exacerbation or injury. 10-Not Attempted due to Environmental Limitations-(lack of equipment, weather restraints, etc.). 88-Not Attempted due to Medical Conditions or Safety Concerns. Roll Left & Right (QC): 4 Sit to Lying (QC): 3 Lying to Sitting/Side of Bed(Q: 3 Sit to Stand (QC): 2 Chair/Fjj-to-Pwdxd Xfer(QC): 2 Patient performed 2 sliding board transfers with max assist, later he was able to perform a couple of stand pivot transfers with mod assist, max assist to stand. Patient has leans backward pretty severely, he doesn't appear to have ankle contractures after all but seems to have anxiety or fear of falling. With cues he can stand up straight but it is a struggle for him. Gait Training Distance: 6'x3 Gait Assistive Device: Parallel Bars CGA, narrow ADELE, very unsteady and shaky Wheelchair Training Does the Pt Use a Wheelchair?: Yes Wheel 50 ft with 2 turns (QC): 4 Type of Wheelchair: Manual 120'x2 Exercises Standing: Mini squats Standing Reps: 20 (2 sets of 10) standing from elevated therapy table x5 Treatments PT performed bed mobility and transfers, ambulation, WC mobility, standing, strengthening, OT performed UE positioning and safety during activity, assisted with standing and transfers with safety and positioning Assessment Current Status: Fair Progress slow progress but was able to stand and ambulate in the parallel bars a little PT Short Term Goals Short Term Goals Time Frame: Aug 11, 2021 Roll Left & Right: 6 Sit to lyin Lying to sitting on side of be: 3 Sit to stand: 2 Chair/caz-tr-rliae transfer: 3 PT Alf Goals Alf Goals PT Alf Goals Time Frame: Aug 25, 2021 Roll Left & Right (QC): 6 Sit to Lying (QC): 6 Lying-Sitting on Side/Bed(QC): 6 Sit to Stand (QC): 3 Chair/Cuj-rd-Swmfg Xfer(QC): 3 Toilet Transfer (QC): 3 Car Transfer (QC): 3 Does the Patient Walk: No and Walking Goal NOT indicated Walk 10 feet (QC): 88 Walk 50ft with 2 Turns (QC): 88 Walk 150 ft (QC): 88 Walking 10ft on Uneven Surface: 88 1 Step (curb) (QC): 88 4 Steps (QC): 88 12 Steps (QC): 88 Picking up an Object (QC): 88 Wheel 50 feet with 2 turns (QC: 6 Wheel 150 feet: 6 PT Plan Problem List Problem List: Activity Tolerance, Functional Strength, Safety, Balance, Gait, Transfer, Bed Mobility, ROM Treatment/Plan Treatment Plan: Continue Plan of Care Treatment Plan: Bed Mobility, Education, Functional Activity Glo, Functional Strength, Group Therapy, Gait, Safety, Therapeutic Exercise, Transfers Treatment Duration: Aug 25, 2021 Frequency: At least 5 of 7 days/Wk (IRF) Estimated Hrs Per Day: 1.5 hours per day Patient and/or Family Agrees t: Yes Safety Risks/Education Patient Education: Gait Training, Transfer Techniques, Correct Positioning, W/C Management, Safety Issues Teaching Recipient: Patient Teaching Methods: Demonstration, Discussion Response to Teaching: Reinforcement Needed Time/GCodes Time In: 0900 Time Out: 1000 Total Billed Treatment Time: 60 Total Billed Treatment 1 visit EX 15' FA 45' co-treated for 60' FLASH ALLEN PT Aug 05, 2021 09:57
--- NOTE | 2021-08-05 10:00 | Occupational Ther Daily Note ---
OT Current Status-Daily Note Subjective Pt agreeable to OT/PT cotreat, does not verbalize pain during session Mental Status/Objective Patient Orientation: Person, Place, Time, Situation Attachments: PEG Tube ADL-Treatment Therapy Code Descriptions/Definitions Functional [place] Measure: 0=Not Assessed/NA 4=Minimal Assistance 1=Total Assistance 5=Supervision or Setup 2=Maximal Assistance 6=Modified [place] 3=Moderate Assistance 7=Complete IndependenceSCALE: Activities may be completed with or without assistive devices. 6-Cfvnvghnla-lbrcbow completes the activity by him/herself with no assistance from a helper. 5-Set-up or Clean-up Assistance-helper sets up or cleans up; patient completes activity. [place] assists only prior to or following the activity. 4-Supervision or Touching Assistance-helper provides verbal cues and/or touching/steadying and/or contact guard assistance as patient completes activity. Assistance may be provided throughout the activity or intermittently. 3-Partial/Moderate Assistance-helper does LESS THAN HALF the effort. [place] lifts, holds or supports trunk or limbs, but provides less than half the effort. 2-Substantial/Maximal Assistance-helper does MORE THAN HALF the effort. [place] lifts or holds trunk or limbs and provides more than half the effort. 9-Evecbpoej-auacsh does ALL the effort. Patient does none of the effort to complete the activity. Or, the assistance of 2 or more helpers is required for the patient to complete the activity. If activity was not attempted, code reason: 7-Patient Refused. 9-Not Applicable-not attempted and the patient did not perform the activity before the current illness, exacerbation or injury. 10-Not Attempted due to Environmental Limitations-(lack of equipment, weather restraints, etc.). 88-Not Attempted due to Medical Conditions or Safety Concerns. Other Treatment OT/PT cotreat due to skill of 2 clinicians required which a rn rehab could not perform in order to coordinate UE/LEs, decrease fall risk, and due to pt's limitations in strength, activity tolerance, mobility, transfers and balance. OT focused on UE placement, cues for sequencing and safety, and ADLs, PT focused on LE placement, gross overall movement, transfers/mobility. Pt transferred supine to sit EOB, SB transfer to w/c. Pt had difficulty with SB transfer, as he was pushing himself backwards on the board instead of sideways. Pt propelled w/c to therapy gym, transferring to EOM with SB. Pt stood from elevated mat, with mirror in front of him in order to provide visual cue to stand up straight, x5. Pt completed SPT using FWW to w/c, then taken to parallel bars, ambulating x3 trials with w/c follow (CGA), then completing x2 sets of squats. Pt educated on transfer techniques in order to keep his body forward with sit to stands as he tends to be retropulsive and pulling through his arms rather than pushing up from surface. Pt propelled w/c to his room, SPT using FWW to bed. Post tx, pt in bed, call light in reach and all needs met. Max A slide board transfers, mod A SPT, max A sit to stand. Education OT Patient Education: Correct positioning, Energy conservation, Exercise program, Modified ADL techniques, Progress toward Goal/Update tx plan, Purpose of tx/functional activities, Rehab process Teaching Recipient: Patient Teaching Methods: Discussion Response to Teaching: Verbalize Understanding OT Short Term Goals Short Term Goals Time Frame: Aug 18, 2021 Toileting hygiene: 3 Shower/bathe self: 3 Upper body dressin Lower body dressin Putting on/taking off footwear: 3 OT Halfway Goals Research Quality Assurance Analyst Goals Time Frame: Sep 03, 2021 Eating (QC): 6 Oral Hygiene (QC): 6 Toileting Hygiene (QC): 6 Shower/Bathe Self (QC): 6 Upper Body Dressing (QC): 6 Lower Body Dressing (QC): 6 On/Off Footwear (QC): 6 Additional Goals: 1-Demonstrate ADL Tasks, 2-Verbalize Understanding, 3- ImproveStrength/Glo 1=Demonstrate adherence to instructed precautions during ADL tasks. 2=Patient will verbalize/demonstrate understanding of assistive devices/modifications for ADL. 3=Patient will improve strength/tolerance for activity to enable patient to perform ADL's. OT Education/Plan Problem List/Assessment Assessment: Decreased Activ Tolerance, Decreased UE Strength, Impaired Coordination, Impaired Funct Balance, Impaired I ADL's, Impaired Self-Care Skills Discharge Recommendations Plan/Recommendations: Continue POC Treatment Plan/Plan of Care Patient would benefit from OT for education, treatment and training to promote independence in ADL's, mobility, safety and/or upper extremity function for ADL's. Plan of Care: ADL Retraining, Functional Mobility, Group Exercise/Act as Ind, UE Funct Exercise/Act Treatment Duration: Sep 03, 2021 Frequency: At least 5 of 7 days/Wk (IRF) Estimated Hrs Per Day: 1.5 hours per day Agreement: Yes Rehab Potential: Fair Time/GCodes Start Time: 09:00 Stop Time: 10:00 Total Time Billed (hr/min): 60 Billed Treatment Time 1, FA 4 ADAM FISHER OT Aug 05, 2021 10:00
--- NOTE | 2021-08-05 10:18 | PM&R Progress Note ---
Subjective HPI/CC On Admission Date Seen by Provider: Aug 05, 2021 Time Seen by Provider: 12:45 Subjective/Events-last exam 08/05/2021: Pt doing really well Hgb 9.6 Creatinine is baseline at 1.54 Had a large BM last night Overall doing well Review of Systems General: Fatigue, Malaise Musculoskeletal: leg pain Objective Exam Vital Signs Vital Signs Date Time Temp Pulse Resp B/P (MAP) Pulse Ox O2 Delivery O2 Flow Rate FiO2 08/05/21 20:03 99 Room Air 08/05/21 19:41 37.1 68 16 106/62 (77) Capillary Refill : General Appearance: No Apparent Distress, WD/WN, Chronically ill, Thin HEENT: PERRL/EOMI, Normal ENT Inspection, Pharynx Normal Neck: Full Range of Motion, Normal Inspection, Non Tender, Supple, Carotid Bruit Respiratory: Chest Non Tender, Lungs Clear, Normal Breath Sounds, No Accessory Muscle Use, No Respiratory Distress Cardiovascular: Regular Rate, Rhythm, No Edema, No Gallop, No JVD, No Murmur, Normal Peripheral Pulses Gastrointestinal: Normal Bowel Sounds, No Organomegaly, No Pulsatile Mass, Non Tender, Soft Back: Normal Inspection, No CVA Tenderness, No Vertebral Tenderness Extremity: Normal Capillary Refill, Normal Inspection, Normal Range of Motion, Non Tender, No Calf Tenderness, No Pedal Edema Neurologic/Psychiatric: Alert, Oriented x3, No Motor/Sensory Deficits, Normal Mood/Affect, memory care program director II-XII Norm as Tested, Motor Weakness (Severe muscle weakness upper and lower extremities) Skin: Normal Color, Warm/Dry Lymphatic: No Adenopathy Results/Procedures Lab Laboratory Tests 08/05/21 05:27 Patient resulted labs reviewed. FIM Transfers Therapy Code Descriptions/Definitions Functional [place] Measure: 0=Not Assessed/NA 4=Minimal Assistance 1=Total Assistance 5=Supervision or Setup 2=Maximal Assistance 6=Modified [place] 3=Moderate Assistance 7=Complete IndependenceSCALE: Activities may be completed with or without assistive devices. 2-Tigyxoplpn-gbmogod completes the activity by him/herself with no assistance from a helper. 5-Set-up or Clean-up Assistance-helper sets up or cleans up; patient completes activity. [place] assists only prior to or following the activity. 4-Supervision or Touching Assistance-helper provides verbal cues and/or touching/steadying and/or contact guard assistance as patient completes activity. Assistance may be provided throughout the activity or intermittently. 3-Partial/Moderate Assistance-helper does LESS THAN HALF the effort. [place] lifts, holds or supports trunk or limbs, but provides less than half the effort. 2-Substantial/Maximal Assistance-helper does MORE THAN HALF the effort. [place] lifts or holds trunk or limbs and provides more than half the effort. 2-Hhyoatukg-eliyqv does ALL the effort. Patient does none of the effort to complete the activity. Or, the assistance of 2 or more helpers is required for the patient to complete the activity. If activity was not attempted, code reason: 7-Patient Refused. 9-Not Applicable-not attempted and the patient did not perform the activity before the current illness, exacerbation or injury. 10-Not Attempted due to Environmental Limitations-(lack of equipment, weather restraints, etc.). 88-Not Attempted due to Medical Conditions or Safety Concerns. Roll Left to Right (QC): 4 Sit to Lying (QC): 3 Sit to Stand (QC): 2 Chair/Tey-fq-Kkcav Xfer(QC): 2 Car Transfer (QC): 1 Gait Training Does the Patient Walk?: No and Walking Goal NOT indicated Distance: 6'x3 Walk 10 feet (QC): 88 Walk 50 ft with 2 Turns(QC): 88 Walk 150 ft (QC): 88 Walking 10ft/uneven surface-QC: 88 Gait Assistive Device: Parallel Bars Wheelchair Training Does the Pt Use a Wheelchair?: Yes Wheel 50 ft with 2 turns (QC): 4 Wheel 150 ft (QC): 4 Type of Wheelchair: Manual Stair Training 1 Step (curb) (QC): 88 4 Steps (QC): 88 12 Steps (QC): 88 Balance Picking up an Object (QC): 88 ADL-Treatment Eating (QC): 6 (IND with lunch per report.) Oral Hygiene (QC): 5 (per clincial judgment, set up with task.) Shower/Bathe Self (QC): 1 (Sit to stand lift utilized to thoroughly wash/dry bu ttocks. Pt able to wash UEs, chest/abdomen, periarea and BLEs seated. OT assisted with buttocks.) Upper Body Dressing (QC): 3 (Pt doffed/donned button up shirt. Assistance provided with buttons and with threading LUE.) Lower Body Dressing (QC): 1 (Sit to stand lift utilized. Assistance with all parts. ) On/Off Footwear (QC): 1 (Total assist doffing/donning gripper socks, pt unable to reach feet.) Toileting Hygiene (QC): 1 (sit to stand lift for clothing managment and hygiene.) Assessment/Plan Assessment and Plan Assess & Plan/Chief Complaint Assessment: Critical illness myopathy COVID-19 pneumonia April 2021 Status post ventilator dependence Atrial fibrillation during intubation Cardiac arrest x2 Previous smoker Weight loss Plan: Inpatient rehab protocol Pain control Cardiology consult 08/05/2021: Supportive care Aggressive rehab Cardiology consult (1) Myopathy (2) Acute respiratory failure due to COVID-19 Status: Acute (3) Hypercoagulable state associated with COVID-19 Status: Acute (4) Persistent atrial fibrillation (5) Mixed hyperlipidemia (6) HAYDE (acute kidney injury) Status: Acute COTY SHIPMAN DO Aug 05, 2021 10:18
--- NOTE | 2021-08-05 10:19 | Individualized Plan of Care ---
Individualized Plan of Care Rehab Nursing IPOC Order Admission Date Aug 04, 2021 at 12:10 Current Orders Orders Admission Order(Inpt,Obs,Sdc) (08/04/21 09:47) Vital Signs: Per Unit Policy ( ,16,00 (08/04/21 09:47) Carlos Royal (08/04/21 09:47) Sequential Compression Device (08/04/21 09:47) Condemnation Engineer-Inpt Rehab Con (08/04/21 09:47) Rehab Nursing Orders-Ipoc (08/04/21 09:47) Physical Therapy Rehab Orders (08/04/21 09:47) Occupational Therapy Rehab Ord (08/04/21 09:47) Speech Therapy Rehab Orders (08/04/21 09:47) Cbc With Automated Diff (08/05/21 06:00) Comprehensive Metabolic Panel (08/05/21 06:00) Precautions (Aru) (08/04/21 09:47) Weekly Weight WEEK (08/04/21 09:47) Rehab-Intensity Of Therapy (08/04/21 09:47) Initiate Admission Nursing Pro .admission (08/04/21 09:47) Alprazolam Tablet (Xanax Tablet) (08/04/21 10:00) Calcium Carbonate Chew Tablet (Antacid C (08/04/21 10:00) Diphenhydramine Tablet (Benadryl Tablet) (08/04/21 10:00) Docusate Sodium Capsule (Colace Capsule) (08/04/21 21:00) Docusate Sodium Capsule (Colace Capsule) (08/04/21 10:00) Bisacodyl Suppository (Dulcolax Supposit (08/04/21 10:00) Lactulose Oral Solution (Enulose Oral So (08/04/21 10:00) Na Phos/Na Biphos Enema (Fleet Enema Saeed (08/04/21 10:00) Guaifenesin/Codeine Syrup (Robitussin Ac (08/04/21 10:00) Loperamide Tablet (Imodium Tablet) (08/04/21 10:00) Melatonin Tablet (Melatonin Tablet) (08/04/21 10:00) Polyethylene Glycol Powder Pkt (Miralax (08/04/21 21:00) Ondansetron Oral Dissolve Tab (Zofran (08/04/21 10:00) Senna S Tablet (Senokot S Tablet) (08/04/21 21:00) Acetaminophen Tablet/Caplet (Tylenol T (08/04/21 10:00) Code/Resuscitation (08/04/21 09:47) Sequential Compression Device ONCE (08/04/21 09:47) Initiate Admission Nursing Pro .admission (08/04/21 09:47) Admission Arrival Bed Request (08/04/21 12:09) Consult Cardiology (08/04/21 12:53) Patient Visit (08/04/21 ) Speech Sound Lang Comp (08/04/21 ) Treat. Speech/Lang/Voice (08/04/21 ) Patient Visit (08/04/21 ) Pt Eval Moderate Complexity (08/04/21 ) Functional Activities, Ea 15 (08/04/21 ) Amiodarone Tablet (Cordarone Tablet) (08/05/21 09:00) Docusate Sodium Capsule (Colace Capsule) (08/04/21 21:00) Famotidine Tablet (Pepcid Tablet) (08/05/21 09:00) Gabapentin Capsule/Tablet (Neurontin Cap (08/04/21 16:15) Heparin Injection (Heparin Injection) (08/04/21 16:30) Lactobacillus Acidophilus Cap (Acidophil (08/04/21 21:00) Camphor/Menthol/Phenol (Blistex Lip Oint (08/04/21 16:45) Oxycodone/Apap 5/325mg Tablet (Percocet (08/04/21 16:15) Polyethylene Glycol Powder Pkt (Miralax (08/04/21 16:15) Therapeutic Multivitamin Tab (Vitamins, (08/05/21 07:00) Midodrine Tablet (Proamatine) (08/04/21 17:00) General/Regular (08/04/21 Dinner) Patient Visit (08/05/21 ) Exercise Therap, Ea 15 Min (08/05/21 ) Functional Activities, Ea 15 (08/05/21 ) Enlive Variety (08/05/21 15:00) Ekg Tracing (08/05/21 16:28) Amiodarone Tablet (Cordarone Tablet) (08/06/21 09:00) Apixaban Tablet (Eliquis Tablet) (08/05/21 21:00) Us Venous Lower Ext [place] (08/06/21 08:00) Basic Metabolic Panel (08/06/21 05:00) Atorvastatin Tablet (Lipitor Tablet) (08/05/21 21:00) Rehab Nursing Orders: Ongoing Assess. of Cognitive Status, Ongoing Assess. of Function Status, Bladder Management, Bladder Scan, Bladder Training, Bowel Management, Bowel Training, Disease Management & Educaiton, DVT Prophylaxis, Fall Prevention, Fluid/Electrolyte/Nutrition Mgmt, Infection Prevention, Medication Management & Education, Management of Risks & Complications, Manage ment of Skin Intergrity, Nutrition Management, Pain Management, Patient/Family Support, Safety Management Intensity of Therapy to be met Patient to be seen: Min.3h per day/5 of 7d PT IPOC Problem List: Activity Tolerance, Functional Strength, Safety, Balance, Gait, Transfer, Bed Mobility, ROM Treatment Plan: Continue Plan of Care Bed Mobility, Education, Functional Activity Glo, Functional Strength, Group Therapy, Gait, Safety, Therapeutic Exercise, Transfers Treatment Duration: Aug 25, 2021 Frequency: At least 5 of 7 days/Wk (IRF) Estimated Hrs Per Day: 1.5 hours per day OT IPOC Problems: Decreased Activ Tolerance, Decreased UE Strength, Impaired Coordination, Impaired Funct Balance, Impaired I ADL's, Impaired Self-Care Skills OT Treatment, Training and Edu: Yes Plan of Care: ADL Retraining, Functional Mobility, Group Exercise/Act as Ind, UE Funct Exercise/Act Treatment Duration: Sep 03, 2021 Frequency: At least 5 of 7 days/Wk (IRF) Estimated Hrs Per Day: 1.[address] IPOC Speech Therapy Treatment Plan: Discontinue ST Treatment Duration: Aug 05, 2021 Frequency: Modified Program (IRF) Estimated Hrs Per Day: Other Condemnation Engineer/Case Mgmt Condemnation Engineer/Case Managemen: Discharge Planning Dietitian/Avionics Integration Engineer Dietitian/Avionics Integration Engineer to monitor nutritional status and make changes and/or recommendations as needed and work with speech pathology on dietary upgrades as the occur. Physician IPOC Medical Issues being managed closely and that require the 24 hour availability of a physician: 3-month hospital stay due to Covid with drain placement and PEG tube placement cardiac arrest x2 will require close monitoring for any decompensation Medical Issues: Bowel/Bladder Function, DVT Prophylaxis, Falls Precautions, Fluid/Electrolyte/Nutrition Balance, Infection Protection, Pain Management, Swallowing Precautions Brief Synthesis of Preadmission Screen, Post-Admission Evaluation, and Therapy Evaluations: PT and OT will focus on regaining function to use assistive devices in order to return to independent living Medical Prognosis: Good Anticipated Length of Stay: 14 days COTY SHIPMAN DO Aug 05, 2021 10:19
--- NOTE | 2021-08-05 11:52 | Physical Therapy Daily Note ---
PT Daily Note-Current Subjective Patient in bed pre tx, agrees to PT, has no complaints of pain. Appearance Patient in bed post tx, with nurse call, phone, tray, all needs met. Mental Status Patient Orientation: Person, Place, Situation Attachments: PEG Tube Transfers SCALE: Activities may be completed with or without assistive devices. 0-Ypjlzdzigl-xyfukkq completes the activity by him/herself with no assistance from a helper. 5-Set-up or Clean-up Assistance-helper sets up or cleans up; patient completes activity. [place] assists only prior to or following the activity. 4-Supervision or Touching Assistance-helper provides verbal cues and/or touching/steadying and/or contact guard assistance as patient completes activity. Assistance may be provided throughout the activity or intermittently. 3-Partial/Moderate Assistance-helper does LESS THAN HALF the effort. [place] lifts, holds or supports trunk or limbs, but provides less than half the effort. 2-Substantial/Maximal Assistance-helper does MORE THAN HALF the effort. [place] lifts or holds trunk or limbs and provides more than half the effort. 5-Glskaenjg-sdclca does ALL the effort. Patient does none of the effort to complete the activity. Or, the assistance of 2 or more helpers is required for the patient to complete the activity. If activity was not attempted, code reason: 7-Patient Refused. 9-Not Applicable-not attempted and the patient did not perform the activity before the current illness, exacerbation or injury. 10-Not Attempted due to Environmental Limitations-(lack of equipment, weather restraints, etc.). 88-Not Attempted due to Medical Conditions or Safety Concerns. Exercises Supine Ex: Ankle pumps, Quad Set, Glut sets, Heel Slides, Short Arc Quads, Straight leg raise, Hip abd/add Supine Reps: 20 also manual BLE stretching Treatments LE strengthening and stretching Assessment Current Status: Fair Progress patient has limited knee flexion ROM and slight plantarflexion contractures PT Short Term Goals Short Term Goals Time Frame: Aug 11, 2021 Roll Left & Right: 6 Sit to lyin Lying to sitting on side of be: 3 Sit to stand: 2 Chair/guk-us-utndv transfer: 3 PT Sql Data Analyst Goals Sql Data Analyst Goals PT Sql Data Analyst Goals Time Frame: Aug 25, 2021 Roll Left & Right (QC): 6 Sit to Lying (QC): 6 Lying-Sitting on Side/Bed(QC): 6 Sit to Stand (QC): 3 Chair/Gcl-ep-Whsjd Xfer(QC): 3 Toilet Transfer (QC): 3 Car Transfer (QC): 3 Does the Patient Walk: No and Walking Goal NOT indicated Walk 10 feet (QC): 88 Walk 50ft with 2 Turns (QC): 88 Walk 150 ft (QC): 88 Walking 10ft on Uneven Surface: 88 1 Step (curb) (QC): 88 4 Steps (QC): 88 12 Steps (QC): 88 Picking up an Object (QC): 88 Wheel 50 feet with 2 turns (QC: 6 Wheel 150 feet: 6 PT Plan Problem List Problem List: Activity Tolerance, Functional Strength, Safety, Balance, Gait, Transfer, Bed Mobility, ROM Treatment/Plan Treatment Plan: Continue Plan of Care Treatment Plan: Bed Mobility, Education, Functional Activity Glo, Functional Strength, Group Therapy, Gait, Safety, Therapeutic Exercise, Transfers Treatment Duration: Aug 25, 2021 Frequency: At least 5 of 7 days/Wk (IRF) Estimated Hrs Per Day: 1.5 hours per day Patient and/or Family Agrees t: Yes Safety Risks/Education Patient Education: Correct Positioning, Safety Issues Teaching Recipient: Patient Teaching Methods: Demonstration, Discussion Response to Teaching: Reinforcement Needed Time/GCodes Time In: 1130 Time Out: 1200 Total Billed Treatment Time: 30 Total Billed Treatment 1 visit EX 30' FLASH ALLEN PT Aug 05, 2021 11:52
--- NOTE | 2021-08-05 13:10 | Occupational Ther Daily Note ---
OT Current Status-Daily Note Subjective Pt laying in bed, agreeable to OT tx. 2 Visitors present during session Mental Status/Objective Patient Orientation: Person, Place, Time, Situation ADL-Treatment Therapy Code Descriptions/Definitions Functional Burnet Measure: 0=Not Assessed/NA 4=Minimal Assistance 1=Total Assistance 5=Supervision or Setup 2=Maximal Assistance 6=Modified Burnet 3=Moderate Assistance 7=Complete IndependenceSCALE: Activities may be completed with or without assistive devices. 1-Ndkacokkve-oodncez completes the activity by him/herself with no assistance from a helper. 5-Set-up or Clean-up Assistance-helper sets up or cleans up; patient completes activity. [place]ain[place] assists only prior to or following the activity. 4-Supervision or Touching Assistance-helper provides verbal cues and/or touching/steadying and/or contact guard assistance as patient completes activity. Assistance may be provided throughout the activity or intermittently. 3-Partial/Moderate Assistance-helper does LESS THAN HALF the effort. Wainwright lifts, holds or supports trunk or limbs, but provides less than half the effort. 2-Substantial/Maximal Assistance-helper does MORE THAN HALF the effort. Wainwright lifts or holds trunk or limbs and provides more than half the effort. 5-Vjtsjygyw-umurnh does ALL the effort. Patient does none of the effort to complete the activity. Or, the assistance of 2 or more helpers is required for the patient to complete the activity. If activity was not attempted, code reason: 7-Patient Refused. 9-Not Applicable-not attempted and the patient did not perform the activity before the current illness, exacerbation or injury. 10-Not Attempted due to Environmental Limitations-(lack of equipment, weather restraints, etc.). 88-Not Attempted due to Medical Conditions or Safety Concerns. Eating (QC): 6 (Per pt report, IND with lunch. ) Other Treatment Pt laying in bed, transferred supine to sit EOB with min A. In order to increase BUE strength, activity tolerance, fine motor strength, and dynamic sitting balance, pt placed pegs into foam pegboard, 1lb wrist weight BUEs. Pt completed task EOB for 15 mins, moderate cues to maintain upright posture as pt tended to lean backwards. Pt's sitting balance improved when pt had both hands on tray table for support. Pt transferred supine, SBA. Pt continued with task with HOB elevated. Post tx, pt in bed, call light in reach and all needs met, visitors present. Education OT Patient Education: Correct positioning, Energy conservation, Exercise program, Modified ADL techniques, Progress toward Goal/Update tx plan, Purpose of tx/functional activities, Rehab process Teaching Recipient: Patient Teaching Methods: Discussion Response to Teaching: Verbalize Understanding OT Short Term Goals Short Term Goals Time Frame: Aug 18, 2021 Toileting hygiene: 3 Shower/bathe self: 3 Upper body dressin Lower body dressin Putting on/taking off footwear: 3 OT Open Source Developer Goals Open Source Developer Goals Time Frame: Sep 03, 2021 Eating (QC): 6 Oral Hygiene (QC): 6 Toileting Hygiene (QC): 6 Shower/Bathe Self (QC): 6 Upper Body Dressing (QC): 6 Lower Body Dressing (QC): 6 On/Off Footwear (QC): 6 Additional Goals: 1-Demonstrate ADL Tasks, 2-Verbalize Understanding, 3-Improve Strength/Glo 1=Demonstrate adherence to instructed precautions during ADL tasks. 2=Patient will verbalize/demonstrate understanding of assistive devices/modifications for ADL. 3=Patient will improve strength/tolerance for activity to enable patient to pe rform ADL's. OT Education/Plan Problem List/Assessment Assessment: Decreased Activ Tolerance, Decreased UE Strength, Impaired Funct Balance, Impaired I ADL's, Impaired Self-Care Skills Discharge Recommendations Plan/Recommendations: Continue POC Treatment Plan/Plan of Care Patient would benefit from OT for education, treatment and training to promote independence in ADL's, mobility, safety and/or upper extremity function for ADL's. Plan of Care: ADL Retraining, Functional Mobility, Group Exercise/Act as Ind, UE Funct Exercise/Act Treatment Duration: Sep 03, 2021 Frequency: At least 5 of 7 days/Wk (IRF) Estimated Hrs Per Day: 1.5 hours per day Agreement: Yes Rehab Potential: Fair Time/GCodes Start Time: 13:00 Stop Time: 13:30 Total Time Billed (hr/min): 30 Billed Treatment Time 1, FA 2 ADAM FISHER OT Aug 05, 2021 13:10
--- NOTE | 2021-08-05 16:29 | Consultation-Cardiology ---
HPI-Cardiology Cardiology Consultation: Date of Consultation 08/05/21 Date of Admission 08/04/21 Attending Physician Maggie Hardin DO Admitting Physician Dede,Local Physician Consulting Physician MARTÍNEZ LEMON JR, MD HPI: Time Seen by a Provider: 16:25 Chief Complaint: Reason for consultation: History of atrial fibrillation. Had the pleasure of seeing Saud on the inpatient rehab unit at [facility] in [place], [place] this afternoon. He is known to our service from previous hospitalization in March and April 2021 at which time he was in the hospital due to Covid infection. At that time he had developed atrial fibrillation and was placed on rate control and anticoagulation. He ultimately needed a PEG and tracheostomy and after 25 days in the hospital was transferred to [facility]. While there, he apparently had cardiac arrest and was later transferred to [facility]. It sounds as though he was found to have bilateral deep venous thrombosis of the lower extremities and underwent inferior vena cava filter placement. He apparently remained on mechanical ventilation via the tracheostomy and ultimately got transferred back to [facility]. He was ultimately weaned from the mechanical ventilator and then was transferred to our inpatient rehabilitation facility yesterday. I have been asked to see the patient regarding his history of atrial fibrillation. He was working with physical therapy earlier today and states that is going well and denies any exertional dyspnea. He denies chest pain, paroxysmal nocturnal dyspnea, orthopnea, palpitations, lightheadedness, syncope, or lower extremity edema. Certain portions of this document may have been dictated utilizing voice recognition technology. Inherent to this technology, typographical and grammatical errors may exist. As much as I am diligent to identify and correct these mistakes, some errors may remain in the document. Review of Systems-Cardiology Review of Systems Other comments Review of 10 organ systems is as per the history of present illness, otherwise negative. However, the patient has some degree of short-term memory loss and his answers may not be reliable. All Other Systems Reviewed Negative Unless Noted: Yes EJZ-Yxkvcj-Bsxjdy Hx Patient Social History Marrital Status: Employed/Student: retired Smoking Status: Former Smoker Have you traveled recently?: No Alcohol Use?: No Pt feels they are or have been: No Past Medical History PMH As described under Assessment. Family Medical History Family Medical History: He does not report fam h/o early CAD Allergies and Home Medications Allergies Coded Allergies: No Known Drug Allergies (Unverified , 03/11/11) Patient Home Medication List Home Medication List Reviewed: Yes Amiodarone HCl (Amiodarone HCl) 200 Mg Tablet, 200 MG PO DAILY, (Reported) Entered as Reported by: MAYA VIVAS on 08/04/211302 Last Action: Continued Docusate Sodium (Docusate Sodium) 100 Mg Capsule, 100 MG PO BID, (Reported) Entered as Reported by: MAYA VIVAS on 08/04/211302 Last Action: Continued Famotidine (Famotidine) 20 Mg Tablet, 20 MG PO DAILY, (Reported) Entered as Reported by: MAYA VIVAS on 08/04/211302 Last Action: Continued Folic Acid/Vitamin B Comp W-C (Grazyna-Yessy Tablet) 0.8 Mg Tablet, 0.8 MG PO DAILY, (Reported) Entered as Reported by: MAYA VIVAS on 08/04/211302 Last Action: Converted Gabapentin (Gabapentin) 100 Mg Capsule, 100 MG PO Q8H, (Reported) Entered as Reported by: MAYA VIVAS on 08/04/211302 Last Action: Continued Heparin Sodium,Porcine (Heparin Sodium) 5,000 Unit/1 Ml Vial, 5,000 UNIT IJ Q8H, (Reported) Entered as Reported by: MAYA VIVAS on 08/04/211302 Last Action: Continued Lactobacillus Acidophilus/Pect (Acidophilus-Pectin Capsule) 1 Each Capsule, 1 EACH PO BID, (Reported) Entered as Reported by: MAYA VIVAS on 08/04/211302 Last Action: Continued Menthol/Camphor/Dimeth/Phenol (Blistex Medicated Lip Ointment) 6 Gm Oint...g., 1 APPLIC TP EVERY 2 HOURS PRN for DRY LIPS, (Reported) Entered as Reported by: MAYA VIVAS on 08/04/211302 Last Action: Continued Midodrine HCl (Midodrine HCl) 5 Mg Tablet, 5 MG PO Q8H, (Reported) Entered as Reported by: MAYA VIVAS on 08/04/211302 Last Action: Converted Oxycodone HCl/Acetaminophen (Oxycodone-Acetaminophen 5-325) 1 Each Tablet, 1 EACH PO Q6H PRN for PAIN-SEVERE, (Reported) Entered as Reported by: MAYA VIVAS on 08/04/21 1303 Last Action: Continued Polyethylene Glycol 3350 (Miralax) 17 Gm Powd.pack, 17 GM PO DAILY PRN for CONSTIPATION-2ND LINE, (Reported) Entered as Reported by: MAYA VIVAS on 08/04/21 1303 Last Action: Continued Discontinued Medications Apixaban (Eliquis) 5 Mg Tablet, 5 MG PO BID Discontinued Reason: No Longer Taking Prescribed by: MAGGIE HARDIN on 05/04/21 135 Last Action: Discontinued Atorvastatin Calcium (Atorvastatin Calcium) 10 Mg Tablet, 10 MG PO DAILY, (Reported) Discontinued Reason: No Longer Taking Entered as Reported by: MAYA VIVAS on 04/13/21 1314 Last Action: Discontinued Lorazepam (Lorazepam) 2 Mg/1 Ml Vial, 0.5 MG IVP ONCE PRN for ANXIETY Discontinued Reason: No Longer Taking Prescribed by: MAGGIE HARDIN on 05/04/211349 Last Action: Discontinued Metoclopramide HCl (Metoclopramide HCl) 5 Mg/1 Ml Vial, 10 MG IVP Q6HR PRN for RESIDUALS Discontinued Reason: No Longer Taking Prescribed by: MAGGIE HARDIN on 05/04/211349 Last Action: Discontinued Propofol (Diprivan) 10 Mg/1 Ml Vial, 10 MG IV UD Discontinued Reason: No Longer Taking Prescribed by: MAGGIE HARDIN on 05/04/211349 Last Action: Discontinued Exam Vital Signs Vital Signs Date Time Temp Pulse Resp B/P (MAP) Pulse Ox O2 Delivery O2 Flow Rate FiO2 08/05/21 10:29 Room Air 08/05/21 07:31 36.6 71 18 103/69 (80) 95 Physical Exam General: Alert. No acute distress. He appears malnourished. Eye: Extraocular movements are intact. Conjunctivae are clear. There are no xanthelasma. HENT: Normocephalic. Atraumatic. Carotid pulsations 2/2 without bruits. Neck: Jugular venous pressure does not appear elevated. No thyromegaly appreciated. Respiratory: Lungs are clear to auscultation. Respirations are non-labored. Breath sounds are equal. Symmetrical chest wall expansion. Cardiovascular: Normal rate. Regular rhythm. No murmur. No gallop. Point of maximal impulse is not appear displaced. Good pulses equal in all extremities. No edema. Gastrointestinal: Soft. Normal bowel sounds. Skin: Skin turgor is normal. There is no pallor. Musculoskeletal: No kyphosis or scoliosis appreciated. Neurologic: Alert and oriented to person, place, time. Cranial nerves 3-12 appear grossly intact. The patient has good motor tone strength in the upper and lower extremities bilaterally. Psychiatric: Cooperative. Appropriate mood & affect. Labs Laboratory Tests Test 08/05/21 05:27 Range/Units White Blood Count 6.1 4.3-11.0 10^3/uL Red Blood Count 3.13 L 4.30-5.52 10^6/uL Hemoglobin 9.6 L 13.3-17.7 g/dL Hematocrit 30 L 40-54 % Mean Corpuscular Volume 96 80-99 fL Mean Corpuscular Hemoglobin 31 25-34 pg Mean Corpuscular Hemoglobin Concent 32 32-36 g/dL Red Cell Distribution Width 17.6 H 10.0-14.5 % Platelet Count 335 130-400 10^3/uL Mean Platelet Volume 9.4 9.0-12.2 fL Immature Granulocyte % (Auto) 1 % Neutrophils (%) (Auto) 55 42-75 % Lymphocytes (%) (Auto) 33 12-44 % Monocytes (%) (Auto) 9 0-12 % Eosinophils (%) (Auto) 1 0-10 % Basophils (%) (Auto) 2 0-10 % Neutrophils # (Auto) 3.4 1.8-7.8 10^3/uL Lymphocytes # (Auto) 2.0 1.0-4.0 10^3/uL Monocytes # (Auto) 0.5 0.0-1.0 10^3/uL Eosinophils # (Auto) 0.1 0.0-0.3 10^3/uL Basophils # (Auto) 0.1 0.0-0.1 10^3/uL Immature Granulocyte # (Auto) 0.0 0.0-0.1 10^3/uL Sodium Level 142 135-145 MMOL/L Potassium Level 4.1 3.6-5.0 MMOL/L Chloride Level 106 98-107 MMOL/L Carbon Dioxide Level 25 21-32 MMOL/L Anion Gap 11 5-14 MMOL/L Blood Urea Nitrogen 21 H 7-18 MG/DL Creatinine 1.54 H 0.60-1.30 MG/DL Estimat Glomerular Filtration Rate 44 BUN/Creatinine Ratio 14 Glucose Level 76 70-105 MG/DL Calcium Level 8.8 8.5-10.1 MG/DL Corrected Calcium 9.4 8.5-10.1 MG/DL Total Bilirubin 0.4 0.1-1.0 MG/DL Aspartate Amino Transf (AST/SGOT) 17 5-34 U/L Alanine Aminotransferase (ALT/SGPT) 13 0-55 U/L Alkaline Phosphatase 63 40-136 U/L Total Protein 6.5 6.4-8.2 GM/DL Albumin 3.3 3.2-4.5 GM/DL Diagnosis/Problems Diagnosis/Problems (1) Persistent atrial fibrillation Assessment & Plan: He had atrial fibrillation during his previous hospitalization in our hospital 4 months ago. He has remained in hospital since that time and is now back in our hospital for inpatient rehab. He is on amiodarone 200 mg once daily. I will decrease this to 100 mg daily. We can probably taper this off in about [address] him back on apixaban. We can stop the subcutaneous heparin. (2) Mixed hyperlipidemia Assessment & Plan: He has a history of hyperlipidemia and was taking atorvastatin at home. Somewhere along the line during his prolonged hospitaliz ation, the atorvastatin was discontinued. I will restart his atorvastatin at his previous home dosing. (3) History of deep venous thrombosis Assessment & Plan: He had deep venous thrombosis when he was in outside hospital. Inferior vena cava filter was placed at that time for unclear reasons. Nonetheless, at this point in time, I do not see any contraindication for restarting his oral anticoagulant. For the time being, he needs oral anticoagulation related to the previous atrial fibrillation. I have ordered a follow-up lower extremity ultrasound to help determine when we can have his inferior vena cava filter removed. (4) Presence of inferior vena cava filter Assessment & Plan: Once he is discharged from our hospital, we can see about making arrangements to have the filter removed. (5) Stage 3 chronic kidney disease Assessment & Plan: This will need to be followed longitudinally. There is no indication to adjust the dose of apixaban based on his renal function. MARTÍNEZ LEMON JR, MD Aug 05, 2021 16:29
[2021-08-05 19:41] VITALS: BP 106/62
[2021-08-05] MEDS: APIXABAN 5 MG (ELIQUIS) TABLET PO SCH (20:00)
[2021-08-05] MEDS: AtorvaSTATin TABLET 10 MG TABLET PO SCH (20:00)
[2021-08-06] MEDS: GABAPENTIN 100 MG (NEURONTIN) CAP PO SCH ×3 (00:17→17:15)
[2021-08-06] MEDS: MIDODRINE 10 MG (PROAMATINE) TAB PO SCH ×3 (00:17→20:01)
[2021-08-06] MEDS: MULTIVIT W/MINERALS TAB (THERAGRAN M) PO SCH (06:02)
[2021-08-06 06:44] LABS: POTASSIUM 4.1 MMOL/L (3.6-5.0)
[2021-08-06 06:46] LABS: CALCIUM 8.8 MG/DL (8.5-10.1)
[2021-08-06 06:50] LABS: CREATININE SERUM 1.44 MG/DL (0.60-1.30)
[2021-08-06 07:03] VITALS: BP 114/72
[2021-08-06] MEDS: LACTOBACILLUS ACIDOPHILUS (PROBIOTIC) CAPSULE PO SCH ×2 (08:15→20:00)
[2021-08-06] MEDS: APIXABAN 5 MG (ELIQUIS) TABLET PO SCH ×2 (08:15→20:01)
[2021-08-06] MEDS: FAMOTIDINE 20 MG (PEPCID) TABLET PO SCH (08:15)
[2021-08-06] MEDS: SENNA W/DOCUSATE (SENOKOT S) TABLET PO SCH ×2 (08:16→19:31)
[2021-08-06] MEDS: AMIODARONE 200 MG (CORDARONE) TAB PO SCH (08:16)
[2021-08-06] MEDS: DOCUSATE SODIUM 100 MG (COLACE) CAP PO SCH ×4 (08:18→19:30)
[2021-08-06] MEDS: polyethylene glycoL POWDER 17 GM (MIRALAX) PACK PO SCH ×2 (08:19→19:31)
--- NOTE | 2021-08-06 09:12 | Diagnostic Imaging Report ---
PROCEDURE: US Venous Lower Ext [place]. TECHNIQUE: Multiple real-time grayscale images were obtained over the lower extremities in various projections, bilaterally. Additional duplex Doppler and color Doppler images were also obtained. INDICATION: Leg pain and swelling history of DVT There are no prior studies available for comparison. There are generally good blood flow and compressibility at all levels. There is no sign of deep venous thrombosis. IMPRESSION: There is no evidence for deep venous thrombosis in either lower extremity. Mediport Dictated by: Dictated on workstation # [id number]
--- NOTE | 2021-08-06 09:57 | Physical Therapy Daily Note ---
PT Daily Note-Current Subjective Patient in bed pre tx, agrees to PT, has no complaints of pain. Will be co- treating with OT due to poor patient mobility, strength, endurance, severe debility and SOB with activity, coordinate UE and LE with activity, safety and reduce risk of falls. Patient dressed LE Appearance Patient in bed post tx with nurse call, phone, tray, all needs met. Bed alarm on, patient was a little confused this morning, doesn't remember having therapy yesterday. Mental Status Patient Orientation: Person, Place, Situation Attachments: PEG Tube Transfers SCALE: Activities may be completed with or without assistive devices. 6-Lpoufxolcx-kremptl completes the activity by him/herself with no assistance from a helper. 5-Set-up or Clean-up Assistance-helper sets up or cleans up; patient completes activity. [place]bler assists only prior to or following the activity. 4-Supervision or Touching Assistance-helper provides verbal cues and/or touching/steadying and/or contact guard assistance as patient completes activity. Assistance may be provided throughout the activity or intermittently. 3-Partial/Moderate Assistance-helper does LESS THAN HALF the effort. Ambler lifts, holds or supports trunk or limbs, but provides less than half the effort. 2-Substantial/Maximal Assistance-helper does MORE THAN HALF the effort. Ambler lifts or holds trunk or limbs and provides more than half the effort. 4-Aessylbsj-ivmrbb does ALL the effort. Patient does none of the effort to complete the activity. Or, the assistance of 2 or more helpers is required for the patient to complete the activity. If activity was not attempted, code reason: 7-Patient Refused. 9-Not Applicable-not attempted and the patient did not perform the activity before the current illness, exacerbation or injury. 10-Not Attempted due to Environmental Limitations-(lack of equipment, weather restraints, etc.). 88-Not Attempted due to Medical Conditions or Safety Concerns. Roll Left & Right (QC): 3 Sit to Lying (QC): 3 Lying to Sitting/Side of Bed(Q: 3 Sit to Stand (QC): 3 Chair/Sxg-iq-Cfsbt Xfer(QC): 3 Gait Training Distance: 6'x3 Gait Persons Needed: 1 Gait Assistive Device: Parallel Bars WC follow, retropulsive, slight plantarlfexion contractures Wheelchair Training Does the Pt Use a Wheelchair?: Yes Wheel 50 ft with 2 turns (QC): 4 Wheel 150 ft (QC): 4 Type of Wheelchair: Manual 300', very slow Exercises sit to stands x5 Treatments PT performed bed mobility and transfers, ambulation, WC mobility, strengthening, OT worked on dressing, UE positioning and safety during activity Assessment Current Status: Fair Progress some progress but patient is very shaky, fatigues and gets SOB quickly and needs frequent rest breaks PT Short Term Goals Short Term Goals Time Frame: Aug 11, 2021 Roll Left & Right: 6 Sit to lyin Lying to sitting on side of be: 3 Sit to stand: 2 Chair/dls-yn-dchwh transfer: 3 PT Photographs Curator Goals Photographs Curator Goals PT Photographs Curator Goals Time Frame: Aug 25, 2021 Roll Left & Right (QC): 6 Sit to Lying (QC): 6 Lying-Sitting on Side/Bed(QC): 6 Sit to Stand (QC): 3 Chair/Mpl-wt-Kryzz Xfer(QC): 3 Toilet Transfer (QC): 3 Car Transfer (QC): 3 Does the Patient Walk: No and Walking Goal NOT indicated Walk 10 feet (QC): 88 Walk 50ft with 2 Turns (QC): 88 Walk 150 ft (QC): 88 Walking 10ft on Uneven Surface: 88 1 Step (curb) (QC): 88 4 Steps (QC): 88 12 Steps (QC): 88 Picking up an Object (QC): 88 Wheel 50 feet with 2 turns (QC: 6 Wheel 150 feet: 6 PT Plan Problem List Problem List: Activity Tolerance, Functional Strength, Safety, Balance, Gait, T ransfer, Bed Mobility, ROM Treatment/Plan Treatment Plan: Continue Plan of Care Treatment Plan: Bed Mobility, Education, Functional Activity Glo, Functional Strength, Group Therapy, Gait, Safety, Therapeutic Exercise, Transfers Treatment Duration: Aug 25, 2021 Frequency: At least 5 of 7 days/Wk (IRF) Estimated Hrs Per Day: 1.5 hours per day Patient and/or Family Agrees t: Yes Safety Risks/Education Patient Education: Gait Training, Transfer Techniques, Correct Positioning, W/C Management, Safety Issues Teaching Recipient: Patient Teaching Methods: Demonstration, Discussion Response to Teaching: Reinforcement Needed Time/GCodes Time In: 0900 Time Out: 1000 Total Billed Treatment Time: 60 Total Billed Treatment 1 visit FA 60' co-treated with OT for 60' CATRACHITOEK,FLASH PT Aug 06, 2021 09:57
--- NOTE | 2021-08-06 10:22 | Occupational Ther Daily Note ---
OT Current Status-Daily Note Subjective Pt in bed, agreeable to OT Tx. Pt appeared more confused this visit, stating he didn't have any therapy yesterday and didn't remember going to the gym and walking in the parallel bars. Mental Status/Objective Patient Orientation: Person, Confused, MR, Situation Attachments: PEG Tube ADL-Treatment Therapy Code Descriptions/Definitions Functional [place] Measure: 0=Not Assessed/NA 4=Minimal Assistance 1=Total Assistance 5=Supervision or Setup 2=Maximal Assistance 6=Modified [place] 3=Moderate Assistance 7=Complete IndependenceSCALE: Activities may be completed with or without assistive devices. 0-Jruixzbdxz-wlogvey completes the activity by him/herself with no assistance from a helper. 5-Set-up or Clean-up Assistance-helper sets up or cleans up; patient completes a ctivity. [place] assists only prior to or following the activity. 4-Supervision or Touching Assistance-helper provides verbal cues and/or touching/steadying and/or contact guard assistance as patient completes activity. Assistance may be provided throughout the activity or intermittently. 3-Partial/Moderate Assistance-helper does LESS THAN HALF the effort. [place] lifts, holds or supports trunk or limbs, but provides less than half the effort. 2-Substantial/Maximal Assistance-helper does MORE THAN HALF the effort. [place] lifts or holds trunk or limbs and provides more than half the effort. 1-Novquvhtx-ryedbc does ALL the effort. Patient does none of the effort to complete the activity. Or, the assistance of 2 or more helpers is required for the patient to complete the activity. If activity was not attempted, code reason: 7-Patient Refused. 9-Not Applicable-not attempted and the patient did not perform the activity before the current illness, exacerbation or injury. 10-Not Attempted due to Environmental Limitations-(lack of equipment, weather restraints, etc.). 88-Not Attempted due to Medical Conditions or Safety Concerns. Lower Body Dressing (QC): 1 (2 person assist) On/Off Footwear: 1 (total assist donning gripper socks.) Other Treatment OT/PT cotreat due to skill of 2 clinicians required which a rehabilitation aide/scheduler could not perform in order to coordinate UE/LEs, decrease fall risk, and due to pt's limitations in strength, activity tolerance, mobility, transfers and balance. OT focused on UE placement, cues for sequencing and safety, and ADLs, PT focused on LE placement, gross overall movement, transfers/mobility. Pt laying in bed, OT assisted pt with threading LEs into pants as pt was unable to reach. Pt able to manage pants up his thighs at bed level, but unable to manage all the way up. OT donned gripper socks. Pt transferred supine to sit EOB, assist x2 in stand required for pant hike, as pt didn't stand up all the way. Pt transferred from EOB to w/c using FWW, moderate verbal cues for sequencing and UE positioning. Pt performed w/c mobility around [facility] common area/2nd floor, very slow pace. Pt taken to gym, performed 3x6' ambulation in parallel bars, cues to lean forward with sit to stands, and cues for UE placement/sequencing. Pt then completed x5 reps sit to stand transfers in order to increase UE strength/activity tolerance and improve independence and safety with transfers. Pt returned to room in w/c, SPT to EOB with FWW. Pt required step by step cues with transfer, as he tried to sit down prior to getting to the bed. Post tx, pt in bed, call light in reach and all needs met, bed alarm on. Education OT Patient Education: Correct positioning, Energy conservation, Exercise program, Modified ADL techniques, Progress toward Goal/Update tx plan, Purpose of tx/functional activities, Rehab process Teaching Recipient: Patient Teaching Methods: Discussion Response to Teaching: Verbalize Understanding, Reinforcement Needed OT Short Term Goals Short Term Goals Time Frame: Aug 18, 2021 Toileting hygiene: 3 Shower/bathe self: 3 Upper body dressin Lower body dressin Putting on/taking off footwear: 3 OT Trust Officer Goals Longterm Goals Time Frame: Sep 03, 2021 Eating (QC): 6 Oral Hygiene (QC): 6 Toileting Hygiene (QC): 6 Shower/Bathe Self (QC): 6 Upper Body Dressing (QC): 6 Lower Body Dressing (QC): 6 On/Off Footwear (QC): 6 Additional Goals: 1-Demonstrate ADL Tasks, 2-Verbalize Understanding, 3- ImproveStrength/Glo 1=Demonstrate adherence to instructed precautions during ADL tasks. 2=Patient will verbalize/demonstrate understanding of assistive devices/modifications for ADL. 3=Patient will improve strength/tolerance for activity to enable patient to perform ADL's. OT Education/Plan Problem List/Assessment Assessment: Decreased Activ Tolerance, Decreased Safety Aware, Decreased UE Strength, Impaired Cognition, Impaired Coordination, Impaired Funct Balance, Impaired I ADL's, Impaired Self-Care Skills Discharge Recommendations Plan/Recommendations: Continue POC Treatment Plan/Plan of Care Patient would benefit from OT for education, treatment and training to promote independence in ADL's, mobility, safety and/or upper extremity function for ADL's. Plan of Care: ADL Retraining, Functional Mobility, Group Exercise/Act as Ind, UE Funct Exercise/Act Treatment Duration: Sep 03, 2021 Frequency: At least 5 of 7 days/Wk (IRF) Estimated Hrs Per Day: 1.5 hours per day Agreement: Yes Rehab Potential: Fair Time/GCodes Start Time: 09:00 Stop Time: 10:00 Total Time Billed (hr/min): 60 Billed Treatment Time cotreat x60' 1, FA 4 ADAM FISHER OT Aug 06, 2021 10:22
--- NOTE | 2021-08-06 10:26 | PM&R Progress Note ---
Subjective HPI/CC On Admission Date Seen by Provider: Aug 06, 2021 Time Seen by Provider: 12:30 Subjective/Events-last exam 08/06/2021: Patient doing pretty well No significant issues Short-term recall may be altered Checked meds and labs 08/05/2021: Pt doing really well Hgb 9.6 Creatinine is baseline at 1.54 Had a large BM last night Overall doing well Review of Systems General: Fatigue, Malaise Objective Exam Vital Signs Vital Signs Date Time Temp Pulse Resp B/P (MAP) Pulse Ox O2 Delivery O2 Flow Rate FiO2 08/06/21 09:00 Room Air 08/06/21 07:03 36.6 70 18 114/72 (86) 98 Capillary Refill : General Appearance: No Apparent Distress, WD/WN, Chronically ill, Thin HEENT: PERRL/EOMI, Normal ENT Inspection, Pharynx Normal Neck: Full Range of Motion, Normal Inspection, Non Tender, Supple, Carotid Bruit Respiratory: Chest Non Tender, Lungs Clear, Normal Breath Sounds, No Accessory Muscle Use, No Respiratory Distress Cardiovascular: Regular Rate, Rhythm, No Edema, No Gallop, No JVD, No Murmur, Normal Peripheral Pulses Gastrointestinal: Normal Bowel Sounds, No Organomegaly, No Pulsatile Mass, Non Tender, Soft Back: Normal Inspection, No CVA Tenderness, No Vertebral Tenderness Extremity: Normal Capillary Refill, Normal Inspection, Normal Range of Motion, Non Tender, No Calf Tenderness, No Pedal Edema Neurologic/Psychiatric: Alert, Oriented x3, No Motor/Sensory Deficits, Normal Mood/Affect, rn clinical II-XII Norm as Tested, Motor Weakness (Severe muscle weakness upper and lower extremities) Skin: Normal Color, Warm/Dry Lymphatic: No Adenopathy Results/Procedures Lab Laboratory Tests 08/06/21 06:27 Patient resulted labs reviewed. FIM Transfers Therapy Code Descriptions/Definitions Functional [place] Measure: 0=Not Assessed/NA 4=Minimal Assistance 1=Total Assistance 5=Supervision or Setup 2=Maximal Assistance 6=Modified [place] 3=Moderate Assistance 7=Complete IndependenceSCALE: Activities may be completed with or without assistive devices. 5-Muwrixltid-hynxcln completes the activity by him/herself with no assistance from a helper. 5-Set-up or Clean-up Assistance-helper sets up or cleans up; patient completes activity. [place] assists only prior to or following the activity. 4-Supervision or Touching Assistance-helper provides verbal cues and/or touching/steadying and/or contact guard assistance as patient completes activity. Assistance may be provided throughout the activity or intermittently. 3-Partial/Moderate Assistance-helper does LESS THAN HALF the effort. [place] lifts, holds or supports trunk or limbs, but provides less than half the effort. 2-Substantial/Maximal Assistance-helper does MORE THAN HALF the effort. [place] lifts or holds trunk or limbs and provides more than half the effort. 1-Tgamirrpb-nlxuix does ALL the effort. Patient does none of the effort to complete the activity. Or, the assistance of 2 or more helpers is required for the patient to complete the activity. If activity was not attempted, code reason: 7-Patient Refused. 9-Not Applicable-not attempted and the patient did not perform the activity before the current illness, exacerbation or injury. 10-Not Attempted due to Environmental Limitations-(lack of equipment, weather restraints, etc.). 88-Not Attempted due to Medical Conditions or Safety Concerns. Roll Left to Right (QC): 3 Sit to Lying (QC): 3 Sit to Stand (QC): 3 Chair/Zae-gi-Oygnf Xfer(QC): 3 Car Transfer (QC): 1 Gait Training Does the Patient Walk?: No and Walking Goal NOT indicated Distance: 6'x3 Walk 10 feet (QC): 88 Walk 50 ft with 2 Turns(QC): 88 Walk 150 ft (QC): 88 Walking 10ft/uneven surface-QC: 88 Gait Persons Needed: 1 Gait Assistive Device: Parallel Bars Wheelchair Training Does the Pt Use a Wheelchair?: Yes Wheel 50 ft with 2 turns (QC): 4 Wheel 150 ft (QC): 4 Type of Wheelchair: Manual Stair Training 1 Step (curb) (QC): 88 4 Steps (QC): 88 12 Steps (QC): 88 Balance Picking up an Object (QC): 88 ADL-Treatment Eating (QC): 6 (Per pt report, IND with lunch. ) Oral Hygiene (QC): 5 (per clincial judgment, set up with task.) Shower/Bathe Self (QC): 1 (Sit to stand lift utilized to thoroughly wash/dry buttocks. Pt able to wash UEs, chest/abdomen, periarea and BLEs seated. OT assisted with buttocks.) Upper Body Dressing (QC): 3 (Pt doffed/donned button up shirt. Assistance provided with buttons and with threading LUE.) Lower Body Dressing (QC): 1 (2 person assist) On/Off Footwear (QC): 1 (total assist donning gripper socks.) Toileting Hygiene (QC): 1 (sit to stand lift for clothing managment and hygiene.) Assessment/Plan Assessment and Plan Assess & Plan/Chief Complaint Assessment: Critical illness myopathy COVID-19 pneumonia April 2021 Status post ventilator dependence Atrial fibrillation during intubation Cardiac arrest x2 Previous smoker Weight loss Plan: Inpatient rehab protocol Pain control Cardiology consult 08/05/2021: Supportive care Aggressive rehab Cardiology consult 08/06/2021: Supportive care Monitor blood pressure (1) Persistent atrial fibrillation Assessment & Plan: He had atrial fibrillation during his previous hospitalization in our hospital 4 months ago. He has remained in hospital since that time and is now back in our hospital for inpatient rehab. He is on am iodarone 200 mg once daily. I will decrease this to 100 mg daily. We can probably taper this off in about [address] him back on apixaban. We can stop the subcutaneous heparin. (2) Mixed hyperlipidemia Assessment & Plan: He has a history of hyperlipidemia and was taking atorvastatin at home. Somewhere along the line during his prolonged h ospitalization, the atorvastatin was discontinued. I will restart his atorvastatin at his previous home dosing. (3) History of deep venous thrombosis Assessment & Plan: He had deep venous thrombosis when he was in outside hospital. Inferior vena cava filter was placed at that time for unclear reasons. Nonetheless, at this point in time, I do not see any contraindication for restarting his oral anticoagulant. For the time being, he needs oral antico agulation related to the previous atrial fibrillation. I have ordered a follow- up lower extremity ultrasound to help determine when we can have his inferior vena cava filter removed. (4) Presence of inferior vena cava filter Assessment & Plan: Once he is discharged from our hospital, we can see about making arrangements to have the filter removed. (5) Stage 3 chronic kidney disease Assessment & Plan: This will need to be followed longitudinally. There is no indication to adjust the dose of apixaban based on his renal function. COTY SHIPMAN DO Aug 06, 2021 10:26
--- NOTE | 2021-08-06 11:36 | Occupational Ther Daily Note ---
OT Current Status-Daily Note Subjective Pt laying in bed, agreeable to OT tx. Mental Status/Objective Patient Orientation: Person, Place, Situation ADL-Treatment Therapy Code Descriptions/Definitions Functional [place] Measure: 0=Not Assessed/NA 4=Minimal Assistance 1=Total Assistance 5=Supervision or Setup 2=Maximal Assistance 6=Modified [place] 3=Moderate Assistance 7=Complete IndependenceSCALE: Activities may be completed with or without assistive devices. 0-Snwkbybvjb-kuhokap completes the activity by him/herself with no assistance from a helper. 5-Set-up or Clean-up Assistance-helper sets up or cleans up; patient completes activity. [place] assists only prior to or following the activity. 4-Supervision or Touching Assistance-helper provides verbal cues and/or touching/steadying and/or contact guard assistance as patient completes activity. Assistance may be provided throughout the activity or intermittently. 3-Partial/Moderate Assistance-helper does LESS THAN HALF the effort. [place] lifts, holds or supports trunk or limbs, but provides less than half the effort. 2-Substantial/Maximal Assistance-helper does MORE THAN HALF the effort. [place] lifts or holds trunk or limbs and provides more than half the effort. 2-Yxyouttqp-wtjuro does ALL the effort. Patient does none of the effort to complete the activity. Or, the assistance of 2 or more helpers is required for the patient to complete the activity. If activity was not attempted, code reason: 7-Patient Refused. 9-Not Applicable-not attempted and the patient did not perform the activity before the current illness, exacerbation or injury. 10-Not Attempted due to Environmental Limitations-(lack of equipment, weather restraints, etc.). 88-Not Attempted due to Medical Conditions or Safety Concerns. Other Treatment Pt laying in bed, transferred supine to sit EOB with SBA. OT tx focused on increasing BUE strength and activity tolerance, and fine motor strength and coor dination. Pt placed/removed graded clothespins, x1 set BUEs, minimal verbal cues for problem solving during tx. Pt frequently leaned back, supporting himself with opposite UE as he was using for the task, OT encouraged pt to sit up without UE support as much as possible in order to improve sitting balance and core strength. Pt transferred supine, SBA. Post tx, pt in bed, call light in reach and all needs met. Bed alarm activated. Education OT Patient Education: Correct positioning, Energy conservation, Exercise program, Modified ADL techniques, Progress toward Goal/Update tx plan, Purpose of tx/functional activities Teaching Recipient: Patient Teaching Methods: Discussion Response to Teaching: Verbalize Understanding OT Short Term Goals Short Term Goals Time Frame: Aug 18, 2021 Toileting hygiene: 3 Shower/bathe self: 3 Upper body dressin Lower body dressin Putting on/taking off footwear: [address] Appraiser Goals Right Of Way Appraiser Goals Time Frame: Sep 03, 2021 Eating (QC): 6 Oral Hygiene (QC): 6 Toileting Hygiene (QC): 6 Shower/Bathe Self (QC): 6 Upper Body Dressing (QC): 6 Lower Body Dressing (QC): 6 On/Off Footwear (QC): 6 Additional Goals: 1-Demonstrate ADL Tasks, 2-Verbalize Understanding, 3- ImproveStrength/Glo 1=Demonstrate adherence to instructed precautions during ADL tasks. 2=Patient will verbalize/demonstrate understanding of assistive devices/modifications for ADL. 3=Patient will improve strength/tolerance for activity to enable patient to perform ADL's. OT Education/Plan Problem List/Assessment Assessment: Decreased Activ Tolerance, Decreased UE Strength, Impaired Coordination, Impaired Funct Balance, Impaired I ADL's, Impaired Self-Care Skills Discharge Recommendations Plan/Recommendations: Continue POC Treatment Plan/Plan of Care Patient would benefit from OT for education, treatment and training to promote independence in ADL's, mobility, safety and/or upper extremity function for ADL's. Plan of Care: ADL Retraining, Functional Mobility, Group Exercise/Act as Ind, UE Funct Exercise/Act Treatment Duration: Sep 03, 2021 Frequency: At least 5 of 7 days/Wk (IRF) Estimated Hrs Per Day: 1.5 hours per day Agreement: Yes Rehab Potential: Fair Time/GCodes Start Time: 11:30 Stop Time: 11:45 Total Time Billed (hr/min): 15 Billed Treatment Time 1, ADAM LAM OT Aug 06, 2021 11:36
--- NOTE | 2021-08-06 12:08 | ST Cognitive Linguistic Eval ---
Speech Evaluation-General Medical Diagnosis s/p COVID Onset Date: Aug 04, 2021 Therapy Diagnosis Therapy Diagnosis: Mild Neurocognitive Impairment Precautions Precautions: Fall Precautions/Isolations: Standard Precautions Referral Referring Physician: Dr. Hardin Reason for Referral: Evaluation/Treatment Medical History Pertinent Medical History: Atrial Fib, Arthritis, HTN Current History Please refer to the patient's previous speech language pathology evaluation completed on 08/04/2021 for complete medical history and presentation. Reviewed History: Yes Social History Current Living Status: Other Family (, Desire) Speech PLF-Current Status Prior Level of Function The patient lived at home, independently, with his (Desire) prior to initial hospitalization secondary to COVID. Subjective The patient is lying in bed, awake and alert upon entrance to his room. The patient greeted the clinician and was agreeable to participation in the cognitive linguistic re-assessment. The clinician was contacted by occupational therapy and physical therapy regarding the patient's current mental status. Per therapists, the patient displays poor recall of recent functional events, including visits from his family and therapy exercises. To improve safety and progression of therapy goals, speech pathology will complete a re-assessment in attempts to provide appropriate cognitive intervention moving forward. Language Eval: Auditory Comprehends Simple Yes/No Ques: Functional Indent/Objects Multiple Nettles: Functional Ident/Pics in Multiple Nettles: Functional Follows 1-Step Commands: Functional Follows Complex Directions: Mild Follows General Conversations: Mild Language Eval: Verbal Language Completes Spontaneous Greeting: Functional Produces Auto, Serial Info: Functional Imitates Simple Words/Phrases: Functional Word Finding: Mild Requests Basic Needs: Functional States Basic Personal Info: Functional Expresses Complex Ideas: Mild Language Evaluation: Reading Comprehends Single Nouns: Functional Follows Simple Written Direct: Functional The patient stated his vision has changed secondary to hospitalization. The patient plans to complete a follow up with his physician following discharge. Language Evaluation: Writing Writes to Simple Dictation: Functional Writes Personal Information: Functional Cognitive Patient Orientation The patient is independently oriented to self, location, city, state, month, day of week, date, and year. Objective Cognitive Domain Attention: Mild Memory: Mild Problem Solving: Functional Executive Functions: Mild Visuospatial Skills: WNL Composite Severity Rating: Mild Clock Drawing Severity Rating: WNL Objective Formal/Standardized Tests [facility] Mental Status (UMS) Results The patient displayed a result of +25/30 on the SLUMS correlating to a mild neurocognitive impairment. Oral Motor/Speech Production The patient does not display dysarthria or apraxia of speech throughout the session. The patient remains 100% intelligible in known and unknown contexts. Impression The patient is a 76 year-old male, who presents with a mild neurocognitive deficit (fluctuates). Two days prior, the patient was able to display a slightly higher score of +28/30 (today's result is +25/30). The patient displays similar errors, as the day prior he had difficulty recalling five single words following a delayed recall attempt. Two days ago, the patient was able to recall three of five single words, throughout today's attempt the patient was able to recall one of five single words. Additionally, the patient provided the clinician with conflicting information from the initial evaluation. Throughout the initial evaluation, the patient stated he would like to discharge home with his mom. On today's date, he stated he would discharge home with his , Desire (which is accurate). Due to the information received on this date, the fluctuating cognitive assessment scores, and poor recall ability with skilled therapy, speech language pathology will initiate cognitive intervention to aid in the therapy process and a safe return home. Speech Patient Assess Expression of Ideas/Wants: Exhibits (3) Understanding Verbal Content: Usually Understands (3) Brief Interview-Mental Status: Yes Repetition of Three Words: Three (3) Temporal Orientation: Year: Correct (3) Temporal Orientation: Month: Accurate within 5 days(2) Temporal Orientation: Day: Correct (1) Recall : Wear to say "Sock": Yes, no cue required (2) Recall : Color: Yes, after cueing (1) Recall : Bed: Yes,after cueing (1) Memory/Recall Ability: Current season, That he or she is in a hsp/hsp unit Speech Short Term Goals Short Term Goals Short Term Goals 1. The patient will participate and complete memory exercises with 80% accuracy, independently. 2. The patient will complete functional problem solving tasks with 80% accuracy, independently. Time Frame-STG: Two Weeks Speech Custodial Goals Custodial Goals 1. The patient will demonstrate improved cognitive linguistic function for return and discharge to the least restrictive environment. Time Frame: Three Weeks Speech-Plan Patient/Family Goals Patient/Family Goals: The patient wishes to return home with his , Desire ([place]). Per patient, his is retired and "I plan to retire soon too." Treatment Plan Speech Therapy Treatment Plan: Modify Plan, See Comments Treatment Duration: Aug 05, 2021 Frequency: 4 times per week (Four to five times per week.) Estimated Hrs Per Day: .5 hour per day Rehab Potential: Fair Barriers to Learning: Fluctuating cognition. Pt/Family Agrees to Plan: Yes Safety Risks/Education Teaching Recipient: Patient Teaching Methods: Discussion Response to Teaching: Verbalize Understanding Education Topics Provided: Modification to plan of care, Speech pathology goals (memory) Time Speech Therapy Time In: 11:00 Speech Therapy Time Out: 11:30 Total Billed Time: 30 Billed Treatment Time 1, BOBBI SIM [facility]IZ[facility] ST Aug 06, 2021 12:08
--- NOTE | 2021-08-06 13:14 | Physical Therapy Daily Note ---
PT Daily Note-Current Subjective Patient in bed pre tx, agrees to PT, has no complaints of pain. Appearance Patient in bed post tx with nurse call, phone, tray, all needs met. Mental Status Patient Orientation: Person, Place, Situation Attachments: PEG Tube Transfers SCALE: Activities may be completed with or without assistive devices. 2-Mvqswxpkmc-nmxhrxe completes the activity by him/herself with no assistance from a helper. 5-Set-up or Clean-up Assistance-helper sets up or cleans up; patient completes activity. [place] assists only prior to or following the activity. 4-Supervision or Touching Assistance-helper provides verbal cues and/or touching/steadying and/or contact guard assistance as patient completes activity. Assistance may be provided throughout the activity or intermittently. 3-Partial/Moderate Assistance-helper does LESS THAN HALF the effort. [place] lifts, holds or supports trunk or limbs, but provides less than half the effort. 2-Substantial/Maximal Assistance-helper does MORE THAN HALF the effort. [place] lifts or holds trunk or limbs and provides more than half the effort. 0-Amwiayvid-afsltu does ALL the effort. Patient does none of the effort to complete the activity. Or, the assistance of 2 or more helpers is required for the patient to complete the activity. If activity was not attempted, code reason: 7-Patient Refused. 9-Not Applicable-not attempted and the patient did not perform the activity before the current illness, exacerbation or injury. 10-Not Attempted due to Environmental Limitations-(lack of equipment, weather restraints, etc.). 88-Not Attempted due to Medical Conditions or Safety Concerns. Exercises Supine Ex: Ankle pumps, Quad Set, Glut sets, Heel Slides, Short Arc Quads, Straight leg raise, Hip abd/add Supine Reps: 20 Treatments BLE strengthening Assessment Current Status: Fair Progress slowly improving LE strength PT Short Term Goals Short Term Goals Time Frame: Aug 11, 2021 Roll Left & Right: 6 Sit to lyin Lying to sitting on side of be: 3 Sit to stand: 2 Chair/nzs-mu-bthkh transfer: 3 PT Water Plant Pump Operator Supervisor Goals Mcfp Goals PT Water Plant Pump Operator Supervisor Goals Time Frame: Aug 25, 2021 Roll Left & Right (QC): 6 Sit to Lying (QC): 6 Lying-Sitting on Side/Bed(QC): 6 Sit to Stand (QC): 3 Chair/Jru-ft-Ihcot Xfer(QC): 3 Toilet Transfer (QC): 3 Car Transfer (QC): 3 Does the Patient Walk: No and Walking Goal NOT indicated Walk 10 feet (QC): 88 Walk 50ft with 2 Turns (QC): 88 Walk 150 ft (QC): 88 Walking 10ft on Uneven Surface: 88 1 Step (curb) (QC): 88 4 Steps (QC): 88 12 Steps (QC): 88 Picking up an Object (QC): 88 Wheel 50 feet with 2 turns (QC: 6 Wheel 150 feet: 6 PT Plan Problem List Problem List: Activity Tolerance, Functional Strength, Safety, Balance, Gait, Transfer, Bed Mobility, ROM Treatment/Plan Treatment Plan: Continue Plan of Care Treatment Plan: Bed Mobility, Education, Functional Activity Glo, Functional Strength, Group Therapy, Gait, Safety, Therapeutic Exercise, Transfers Treatment Duration: Aug 25, 2021 Frequency: At least 5 of 7 days/Wk (IRF) Estimated Hrs Per Day: 1.5 hours per day Patient and/or Family Agrees t: Yes Safety Risks/Education Patient Education: Correct Positioning, Safety Issues Teaching Recipient: Patient Teaching Methods: Demonstration, Discussion Response to Teaching: Reinforcement Needed Time/GCodes Time In: 1300 Time Out: 1315 Total Billed Treatment Time: 15 Total Billed Treatment 1 visit EX FLASH COLLINS PT Aug 06, 2021 13:14
--- NOTE | 2021-08-06 14:53 | Cardiology Progress Note ---
Progress Note-Cardiology Events since last exam Date Seen by Provider: Aug 06, 2021 Time Seen by Provider: 14:47 Events since last exam I am following him due to history of atrial fibrillation. He has been working with physical therapy. His legs are quite weak. He denies chest discomfort, dyspnea at rest, palpitations, syncope, or ankle edema. Prior to his initial admission for Covid pneumonia in April, his only home medication was low strength aspirin. Certain portions of this document may have been dictated utilizing voice recognition technology. Inherent to this technology, typographical and grammatical errors may exist. As much as I am diligent to identify and correct these mistakes, some errors may remain in the document. Vitals Last set of Vitals Signs Vital Signs 08/06/21 08/06/21 07:03 09:00 Temp 36.6 Pulse 70 Resp 18 B/P (MAP) 114/72 (86) Pulse Ox 98 O2 Delivery Room Air Labs Labs Laboratory Tests 08/06/21 06:27 Exam Vital Signs Vital Signs Date Time Temp Pulse Resp B/P (MAP) Pulse Ox O2 Delivery O2 Flow Rate FiO2 08/06/21 09:00 Room Air 08/06/21 07:03 36.6 70 18 114/72 (86) 98 Physical Exam General: Alert. No acute distress. He is cachectic. Eye: No xanthelasma. HENT: Normocephalic. Neck: Jugular venous pressure does not appear elevated. Respiratory: Lungs are clear to auscultation. Respirations are non-labored. Breath sounds are equal. Symmetrical chest wall expansion. Cardiovascular: Normal rate. Regular rhythm. No murmur. No gallop. No edema. Gastrointestinal: Soft. Normal bowel sounds. Skin: Warm. Dry. Diffuse ecchymoses on his upper and lower extremities bilaterally. Neurologic: Alert and oriented to person, place, time. Cranial nerves 3-11 grossly intact. Psychiatric: Cooperative. Appropriate mood & affect. Labs Laboratory Tests Test 08/06/21 06:27 Range/Units Sodium Level 139 135-145 MMOL/L Potassium Level 4.1 3.6-5.0 MMOL/L Chloride Level 106 98-107 MMOL/L Carbon Dioxide Level 22 21-32 MMOL/L Anion Gap 11 5-14 MMOL/L Blood Urea Nitrogen 19 H 7-18 MG/DL Creatinine 1.44 H 0.60-1.30 MG/DL Estimat Glomerular Filtration Rate 48 BUN/Creatinine Ratio 13 Glucose Level 79 70-105 MG/DL Calcium Level 8.8 8.5-10.1 MG/DL Diagnosis/Problems Diagnosis/Problems (1) Persistent atrial fibrillation Assessment & Plan: He had atrial fibrillation during his previous hospitalization in our hospital 4 months ago. He has remained in hospital since that time and is now back in our hospital for inpatient rehab. He was on amiodarone 200 mg once daily. I have decreased this to 100 mg daily. We can probably taper this off in about 1 month. He is on apixaban for stroke prophylaxis. I suspect the atrial fibrillation may have been brought on by his initial Covid pneumonia. Once he has completely recovered, we may be able to consider stopping anticoagulation in the future. (2) Mixed hyperlipidemia Assessment & Plan: He has a history of hyperlipidemia and was taking atorvastatin at home. Somewhere along the line during his prolonged hospitalization, the atorvastatin was discontinued. I restarted his atorvastatin. (3) Chronic hypotension Assessment & Plan: Somewhere along the line, he was started on midodrine over the past 4 months of hospitalization. He is currently receiving this every 8 hours. I will cut this back to twice daily dosing. We will follow his blood pressures closely and see if we may be able to discontinue this medication prior to discharge. (4) History of deep venous thrombosis Assessment & Plan: He had deep venous thrombosis when he was in outside hospital. An inferior vena cava filter was placed at that time for unclear reasons. He has back on oral anticoagulation. I ordered an ultrasound in our hospital that did not show any evidence of deep venous thrombosis. Once he is discharged home, we can arrange having the filter removed. I do not believe we have anyone in this hospital who can perform this procedure. (5) Presence of inferior vena cava filter Assessment & Plan: Once he is discharged from our hospital, we can see about making arrangements to have the filter removed. (6) Stage 3 chronic kidney disease Assessment & Plan: This will need to be followed longitudinally. There is no indication to adjust the dose of apixaban based on his renal function. MARTÍNEZ LEMON JR, MD Aug 06, 2021 14:53
[2021-08-06 19:46] VITALS: BP 98/54
[2021-08-06] MEDS: AtorvaSTATin TABLET 10 MG TABLET PO SCH (20:01)
[2021-08-07] MEDS: GABAPENTIN 100 MG (NEURONTIN) CAP PO SCH ×4 (00:05→23:17)
--- NOTE | 2021-08-07 05:49 | PM&R Progress Note ---
Subjective HPI/CC On Admission Date Seen by Provider: Aug 07, 2021 Time Seen by Provider: 12:00 Subjective/Events-last exam 08/07/2021: Patient doing really well Stood with the help of the parallel bars Checked meds and labs No pain is reported 08/06/2021: Patient doing pretty well No significant issues Short-term recall may be altered Checked meds and labs 08/05/2021: Pt doing really well Hgb 9.6 Creatinine is baseline at 1.54 Had a large BM last night Overall doing well Review of Systems General: Fatigue, Malaise Pulmonary: Dyspnea Objective Exam Vital Signs Vital Signs Date Time Temp Pulse Resp B/P (MAP) Pulse Ox O2 Delivery O2 Flow Rate FiO2 08/07/21 09:24 Room Air 08/07/21 07:22 36.0 72 20 106/74 (85) 98 Capillary Refill : General Appearance: No Apparent Distress, WD/WN, Chronically ill, Thin HEENT: PERRL/EOMI, Normal ENT Inspection, Pharynx Normal Neck: Full Range of Motion, Normal Inspection, Non Tender, Supple, Carotid Bruit Respiratory: Chest Non Tender, Lungs Clear, Normal Breath Sounds, No Accessory Muscle Use, No Respiratory Distress Cardiovascular: Regular Rate, Rhythm, No Edema, No Gallop, No JVD, No Murmur, Normal Peripheral Pulses Gastrointestinal: Normal Bowel Sounds, No Organomegaly, No Pulsatile Mass, Non Tender, Soft Back: Normal Inspection, No CVA Tenderness, No Vertebral Tenderness Extremity: Normal Capillary Refill, Normal Inspection, Normal Range of Motion, Non Tender, No Calf Tenderness, No Pedal Edema Neurologic/Psychiatric: Alert, Oriented x3, No Motor/Sensory Deficits, Normal Mood/Affect, solid plasterer II-XII Norm as Tested, Motor Weakness (Severe muscle weakness upper and lower extremities) Skin: Normal Color, Warm/Dry Lymphatic: No Adenopathy Results/Procedures Lab Patient resulted labs reviewed. FIM Transfers Therapy Code Descriptions/Definitions Functional [place] Measure: 0=Not Assessed/NA 4=Minimal Assistance 1=Total Assistance 5=Supervision or Setup 2=Maximal Assistance 6=Modified Dows 3=Moderate Assistance 7=Complete IndependenceSCALE: Activities may be completed with or without assistive devices. 4-Exorithtxe-stiqqob completes the activity by him/herself with no assistance from a helper. 5-Set-up or Clean-up Assistance-helper sets up or cleans up; patient completes activity. [place] assists only prior to or following the activity. 4-Supervision or Touching Assistance-helper provides verbal cues and/or touching/steadying and/or contact guard assistance as patient completes activity. Assistance may be provided throughout the activity or intermittently. 3-Partial/Moderate Assistance-helper does LESS THAN HALF the effort. [place] lifts, holds or supports trunk or limbs, but provides less than half the effort. 2-Substantial/Maximal Assistance-helper does MORE THAN HALF the effort. [place] lifts or holds trunk or limbs and provides more than half the effort. 3-Dombzvcpy-wnhvwp does ALL the effort. Patient does none of the effort to complete the activity. Or, the assistance of 2 or more helpers is required for the patient to complete the activity. If activity was not attempted, code reason: 7-Patient Refused. 9-Not Applicable-not attempted and the patient did not perform the activity before the current illness, exacerbation or injury. 10-Not Attempted due to Environmental Limitations-(lack of equipment, weather restraints, etc.). 88-Not Attempted due to Medical Conditions or Safety Concerns. Roll Left to Right (QC): 3 Sit to Lying (QC): 3 Sit to Stand (QC): 3 Chair/Txu-ol-Xtwje Xfer(QC): 3 Car Transfer (QC): 1 Gait Training Does the Patient Walk?: No and Walking Goal NOT indicated Distance: 6'x3 Walk 10 feet (QC): 88 Walk 50 ft with 2 Turns(QC): 88 Walk 150 ft (QC): 88 Walking 10ft/uneven surface-QC: 88 Gait Persons Needed: 1 Gait Assistive Device: Parallel Bars Wheelchair Training Does the Pt Use a Wheelchair?: Yes Wheel 50 ft with 2 turns (QC): 4 Wheel 150 ft (QC): 4 Type of Wheelchair: Manual Stair Training 1 Step (curb) (QC): 88 4 Steps (QC): 88 12 Steps (QC): 88 Balance Picking up an Object (QC): 88 ADL-Treatment Eating (QC): 6 (Per pt report, IND with lunch. ) Oral Hygiene (QC): 5 (per clincial judgment, set up with task.) Shower/Bathe Self (QC): 1 (Sit to stand lift utilized to thoroughly wash/dry buttocks. Pt able to wash UEs, chest/abdomen, periarea and BLEs seated. OT assisted with buttocks.) Upper Body Dressing (QC): 3 (Pt doffed/donned button up shirt. Assistance provided with buttons and with threading LUE.) Lower Body Dressing (QC): 1 (2 person assist) On/Off Footwear (QC): 1 (total assist donning gripper socks.) Toileting Hygiene (QC): 1 (sit to stand lift for clothing managment and hygiene.) Assessment/Plan Assessment and Plan Assess & Plan/Chief Complaint Assessment: Critical illness myopathy COVID-19 pneumonia April 2021 Status post ventilator dependence Atrial fibrillation during intubation Cardiac arrest x2 Previous smoker Weight loss Plan: Inpatient rehab protocol Pain control Cardiology consult 08/05/2021: Supportive care Aggressive rehab Cardiology consult 08/06/2021: Supportive care Monitor blood pressure 08/07/2021: Intensive rehab Cardiology appreciated (1) Persistent atrial fibrillation Assessment & Plan: He had atrial fibrillation during his previous hospitalization in our hospital 4 months ago. He has remained in hospital since that time and is now back in our hospital for inpatient rehab. He was on amiodarone 200 mg once daily. I have decreased this to 100 mg daily. We can probably taper this off in about 1 month. He is on apixaban for stroke prophylaxis. I suspect the atrial fibrillation may have been brought on by his initial Covid pneumonia. Once he has completely recovered, we may be able to consider stopping anticoagulation in the future. (2) Mixed hyperlipidemia Assessment & Plan: He has a history of hyperlipidemia and was taking atorvastatin at home. Somewhere along the line during his prolonged hospitalization, the atorvastatin was discontinued. I restarted his atorvastatin. (3) Chronic hypotension Assessment & Plan: Somewhere along the line, he was started on midodrine over the past 4 months of hospitalization. He is currently receiving this every 8 hours. I will cut this back to twice daily dosing. We will follow his blood pressures closely and see if we may be able to discontinue this medication prior to discharge. (4) History of deep venous thrombosis Assessment & Plan: He had deep venous thrombosis when he was in outside hospital. An inferior vena cava filter was placed at that time for unclear reasons. He has back on oral anticoagulation. I ordered an ultrasound in our hospital that did not show any evidence of deep venous thrombosis. Once he is discharged home, we can arrange having the filter removed. I do not believe we have anyone in this hospital who can perform this procedure. (5) Presence of inferior vena cava filter Assessment & Plan: Once he is discharged from our hospital, we can see about making arrangements to have the filter removed. (6) Stage 3 chronic kidney disease Assessment & Plan: This will need to be followed longitudinally. There is no indication to adjust the dose of apixaban based on his renal function. COTY SHIPMAN DO Aug 07, 2021 05:49
[2021-08-07] MEDS: MULTIVIT W/MINERALS TAB (THERAGRAN M) PO SCH (06:06)
--- NOTE | 2021-08-07 06:42 | Cardiology Progress Note ---
Progress Note-Cardiology Events since last exam Date Seen by Provider: Aug 07, 2021 Time Seen by Provider: 11:12 Events since last exam I am following him for atrial fibrillation and flutter. He denies palpitations. He does have some dyspnea with exertion but denies dyspnea at rest. He denies chest discomfort, syncope, or ankle edema. He continues to work with physical therapy. At this point, he is able to stand and walk a short distance on his own with the use of a walker. Certain portions of this document may have been dictated utilizing voice recognition technology. Inherent to this technology, typographical and grammatical errors may exist. As much as I am diligent to identify and correct these mistakes, some errors may remain in the document. Vitals Last set of Vitals Signs Vital Signs 08/07/21 08/07/21 07:22 09:24 Temp 36.0 Pulse 72 Resp 20 B/P (MAP) 106/74 (85) Pulse Ox 98 O2 Delivery Room Air Exam Vital Signs Vital Signs Date Time Temp Pulse Resp B/P (MAP) Pulse Ox O2 Delivery O2 Flow Rate FiO2 08/07/21 09:24 Room Air 08/07/21 07:22 36.0 72 20 106/74 (85) 98 Physical Exam General: Alert. No acute distress. He is cachectic. Eye: No xanthelasma. HENT: Normocephalic. Neck: Jugular venous pressure does not appear elevated. Respiratory: Lungs are clear to auscultation. Respirations are non-labored. Breath sounds are equal. Symmetrical chest wall expansion. Cardiovascular: Normal rate. Regular rhythm. No murmur. No gallop. No edema. Gastrointestinal: Soft. Normal bowel sounds. Skin: Warm. Dry. Diffuse ecchymoses on his upper and lower extremities bilaterally. Neurologic: Alert and oriented to person, place, time. Cranial nerves 3-11 grossly intact. Psychiatric: Cooperative. Appropriate mood & affect. Diagnosis/Problems Diagnosis/Problems (1) Typical atrial flutter Assessment & Plan: His electrocardiograms on 08/05 and 08/07 showed atrial flutter with 4-1 AV block. I will continue amiodarone and apixaban. I do not see any urgent need for cardioversion. (2) Persistent atrial fibrillation Assessment & Plan: He had atrial fibrillation during his previous hospitalization in our hospital 4 months ago. He he is now in atrial flutter as above. I suspect he goes back and forth from atrial flutter and atrial fibrillation. (3) Mixed hyperlipidemia Assessment & Plan: He has a history of hyperlipidemia and was taking atorvastatin at home. Somewhere along the line during his prolonged hospitalization, the atorvastatin was discontinued. I restarted his atorvastatin. (4) Chronic hypotension Assessment & Plan: Somewhere along the line, he was started on midodrine over the past 4 months of hospitalization. He was receiving this every 8 hours. I cut this back to twice daily dosing on 08/06. We will follow his blood pressures closely and see if we may be able to discontinue this medication prior to discharge. (5) History of deep venous thrombosis Assessment & Plan: He had deep venous thrombosis when he was in an outside [facility] p[facility]. An inferior vena cava filter was placed at that time for unclear reasons. He has back on oral anticoagulation. I ordered an ultrasound in our hospital that did not show any evidence of deep venous thrombosis. Once he is discharged home, we can arrange having the filter removed. I do not believe we have anyone in this hospital who can perform this procedure. (6) Presence of inferior vena cava filter Assessment & Plan: Once he is discharged from our hospital, we can see about making arrangements to have the filter removed. (7) Stage 3 chronic kidney disease Assessment & Plan: This will need to be followed longitudinally. There is no indication to adjust the dose of apixaban based on his renal function. MARTÍNEZ LEMON JR, MD Aug 07, 2021 06:42
[2021-08-07 07:22] VITALS: BP 106/74
[2021-08-07] MEDS: FAMOTIDINE 20 MG (PEPCID) TABLET PO SCH (08:12)
[2021-08-07] MEDS: AMIODARONE 200 MG (CORDARONE) TAB PO SCH (08:12)
[2021-08-07] MEDS: APIXABAN 5 MG (ELIQUIS) TABLET PO SCH ×2 (08:12→20:33)
[2021-08-07] MEDS: LACTOBACILLUS ACIDOPHILUS (PROBIOTIC) CAPSULE PO SCH ×2 (08:12→20:33)
[2021-08-07] MEDS: MIDODRINE 10 MG (PROAMATINE) TAB PO SCH ×2 (08:12→20:33)
--- NOTE | 2021-08-07 08:37 | Physical Therapy Daily Note ---
PT Daily Note-Current Subjective Patient in bed pre tx, agrees to PT, has no complaints of pain, patient needs LE dressing, dependent for this. Appearance Patient in WC at bedside post tx, has nurse call, phone, tray, all needs met. Encouraged to stay out of bed as long as possible. Mental Status Patient Orientation: Person, Place, Situation Attachments: PEG Tube Transfers SCALE: Activities may be completed with or without assistive devices. 2-Aqgcgmybja-ychrpzn completes the activity by him/herself with no assistance from a helper. 5-Set-up or Clean-up Assistance-helper sets up or cleans up; patient completes activity. [place] assists only prior to or following the activity. 4-Supervision or Touching Assistance-helper provides verbal cues and/or touching/steadying and/or contact guard assistance as patient completes activity. Assistance may be provided throughout the activity or intermittently. 3-Partial/Moderate Assistance-helper does LESS THAN HALF the effort. [place] lifts, holds or supports trunk or limbs, but provides less than half the effort. 2-Substantial/Maximal Assistance-helper does MORE THAN HALF the effort. [place] lifts or holds trunk or limbs and provides more than half the effort. 8-Dtsbtzxmu-tdrqyi does ALL the effort. Patient does none of the effort to complete the activity. Or, the assistance of 2 or more helpers is required for the patient to complete the activity. If activity was not attempted, code reason: 7-Patient Refused. 9-Not Applicable-not attempted and the patient did not perform the activity before the current illness, exacerbation or injury. 10-Not Attempted due to Environmental Limitations-(lack of equipment, weather restraints, etc.). 88-Not Attempted due to Medical Conditions or Safety Concerns. Roll Left & Right (QC): 6 Lying to Sitting/Side of Bed(Q: 4 Sit to Stand (QC): 3 Chair/Awh-xi-Blglm Xfer(QC): 3 Gait Training Does the Patient Walk?: Yes Distance: 6'x3 Gait Persons Needed: 1 Gait Assistive Device: Parallel Bars WC follow, narrow [place], very short steps, very shaky Treatments bed mobility and transfers, ambulation, dressing Assessment Current Status: Poor Progress patient still retropulsive with standing and ambulation PT Short Term Goals Short Term Goals Time Frame: Aug 11, 2021 Roll Left & Right: 6 Sit to lyin Lying to sitting on side of be: 3 Sit to stand: 2 Chair/eaz-lo-rtnbi transfer: 3 PT Mcfp Goals Mcfp Goals PT Electrical Solderer Goals Time Frame: Aug 25, 2021 Roll Left & Right (QC): 6 Sit to Lying (QC): 6 Lying-Sitting on Side/Bed(QC): 6 Sit to Stand (QC): 3 Chair/Pmh-jz-Jxqev Xfer(QC): 3 Toilet Transfer (QC): 3 Car Transfer (QC): 3 Does the Patient Walk: No and Walking Goal NOT indicated Walk 10 feet (QC): 88 Walk 50ft with 2 Turns (QC): 88 Walk 150 ft (QC): 88 Walking 10ft on Uneven Surface: 88 1 Step (curb) (QC): 88 4 Steps (QC): 88 12 Steps (QC): 88 Picking up an Object (QC): 88 Wheel 50 feet with 2 turns (QC: 6 Wheel 150 feet: 6 PT Plan Problem List Problem List: Activity Tolerance, Functional Strength, Safety, Balance, Gait, Transfer, Bed Mobility, ROM Treatment/Plan Treatment Plan: Continue Plan of Care Treatment Plan: Bed Mobility, Education, Functional Activity Glo, Functional Strength, Group Therapy, Gait, Safety, Therapeutic Exercise, Transfers Treatment Duration: Aug 25, 2021 Frequency: At least 5 of 7 days/Wk (IRF) Estimated Hrs Per Day: 1.5 hours per day Patient and/or Family Agrees t: Yes Safety Risks/Education Patient Education: Gait Training, Transfer Techniques, Correct Positioning, Safety Issues Teaching Recipient: Patient Teaching Methods: Demonstration, Discussion Response to Teaching: Reinforcement Needed Time/GCodes Time In: 802 Time Out: 819 Total Billed Treatment Time: 17 Total Billed Treatment 1 visit FA FLASH ESTRADA PT Aug 07, 2021 08:37
[2021-08-07] MEDS: DOCUSATE SODIUM 100 MG (COLACE) CAP PO SCH ×4 (10:44→19:28)
[2021-08-07] MEDS: SENNA W/DOCUSATE (SENOKOT S) TABLET PO SCH ×2 (10:45→19:29)
[2021-08-07] MEDS: polyethylene glycoL POWDER 17 GM (MIRALAX) PACK PO SCH ×2 (10:45→19:28)
[2021-08-07 19:51] VITALS: BP 114/81
[2021-08-07] MEDS: AtorvaSTATin TABLET 10 MG TABLET PO SCH (20:33)
[2021-08-08] MEDS: MULTIVIT W/MINERALS TAB (THERAGRAN M) PO SCH (06:18)
[2021-08-08 07:07] VITALS: BP 104/69
--- NOTE | 2021-08-08 07:24 | PM&R Progress Note ---
Subjective HPI/CC On Admission Date Seen by Provider: Aug 08, 2021 Time Seen by Provider: 12:15 Subjective/Events-last exam 08/08/21: Patient doing well Changing diet to regular Trach residual causes no issues with swallowing BM+ 08/07/2021: Patient doing really well Stood with the help of the parallel bars Checked meds and labs No pain is reported 08/06/2021: Patient doing pretty well No significant issues Short-term recall may be altered Checked meds and labs 08/05/2021: Pt doing really well Hgb 9.6 Creatinine is baseline at 1.54 Had a large BM last night Overall doing well Review of Systems General: Fatigue, Malaise Musculoskeletal: leg pain, foot pain Objective Exam Vital Signs Vital Signs Date Time Temp Pulse Resp B/P (MAP) Pulse Ox O2 Delivery O2 Flow Rate FiO2 08/08/21 20:18 36.9 71 18 107/58 (74) 97 Room Air Capillary Refill : General Appearance: No Apparent Distress, WD/WN, Chronically ill, Thin HEENT: PERRL/EOMI, Normal ENT Inspection, Pharynx Normal Neck: Full Range of Motion, Normal Inspection, Non Tender, Supple, Carotid Bruit Respiratory: Chest Non Tender, Lungs Clear, Normal Breath Sounds, No Accessory Muscle Use, No Respiratory Distress Cardiovascular: Regular Rate, Rhythm, No Edema, No Gallop, No JVD, No Murmur, Normal Peripheral Pulses Gastrointestinal: Normal Bowel Sounds, No Organomegaly, No Pulsatile Mass, Non Tender, Soft Back: Normal Inspection, No CVA Tenderness, No Vertebral Tenderness Extremity: Normal Capillary Refill, Normal Inspection, Normal Range of Motion, Non Tender, No Calf Tenderness, No Pedal Edema Neurologic/Psychiatric: Alert, Oriented x3, No Motor/Sensory Deficits, Normal Mood/Affect, social science analyst II-XII Norm as Tested, Motor Weakness (Severe muscle weakness upper and lower extremities) Skin: Normal Color, Warm/Dry Lymphatic: No Adenopathy Results/Procedures Lab Patient resulted labs reviewed. FIM Transfers Therapy Code Descriptions/Definitions Functional [place] Measure: 0=Not Assessed/NA 4=Minimal Assistance 1=Total Assistance 5=Supervision or Setup 2=Maximal Assistance 6=Modified [place] 3=Moderate Assistance 7=Complete IndependenceSCALE: Activities may be completed with or without assistive devices. 4-Gakpimbvfe-wywvbco completes the activity by him/herself with no assistance from a helper. 5-Set-up or Clean-up Assistance-helper sets up or cleans up; patient completes activity. [place] assists only prior to or following the activity. 4-Supervision or Touching Assistance-helper provides verbal cues and/or touching/steadying and/or contact guard assistance as patient completes activity. Assistance may be provided throughout the activity or intermittently. 3-Partial/Moderate Assistance-helper does LESS THAN HALF the effort. [place] lifts, holds or supports trunk or limbs, but provides less than half the effort. 2-Substantial/Maximal Assistance-helper does MORE THAN HALF the effort. [place] lifts or holds trunk or limbs and provides more than half the effort. 6-Hvsdrebui-knkxvp does ALL the effort. Patient does none of the effort to complete the activity. Or, the assistance of 2 or more helpers is required for the patient to complete the activity. If activity was not attempted, code reason: 7-Patient Refused. 9-Not Applicable-not attempted and the patient did not perform the activity before the current illness, exacerbation or injury. 10-Not Attempted due to Environmental Limitations-(lack of equipment, weather restraints, etc.). 88-Not Attempted due to Medical Conditions or Safety Concerns. Roll Left to Right (QC): 6 Sit to Lying (QC): 3 Sit to Stand (QC): 3 Chair/Guj-ll-Gagzi Xfer(QC): 3 Car Transfer (QC): 1 Gait Training Does the Patient Walk?: Yes Distance: 6'x3 Walk 10 feet (QC): 88 Walk 50 ft with 2 Turns(QC): 88 Walk 150 ft (QC): 88 Walking 10ft/uneven surface-QC: 88 Gait Persons Needed: 1 Gait Assistive Device: Parallel Bars Wheelchair Training Does the Pt Use a Wheelchair?: Yes Wheel 50 ft with 2 turns (QC): 4 Wheel 150 ft (QC): 4 Type of Wheelchair: Manual Stair Training 1 Step (curb) (QC): 88 4 Steps (QC): 88 12 Steps (QC): 88 Balance Picking up an Object (QC): 88 ADL-Treatment Eating (QC): 6 (Per pt report, IND with lunch. ) Oral Hygiene (QC): 5 (per clincial judgment, set up with task.) Shower/Bathe Self (QC): 1 (Sit to stand lift utilized to thoroughly wash/dry buttocks. Pt able to wash UEs, chest/abdomen, periarea and BLEs seated. OT assisted with buttocks.) Upper Body Dressing (QC): 3 (Pt doffed/donned button up shirt. Assistance provided with buttons and with threading LUE.) Lower Body Dressing (QC): 1 (2 person assist) On/Off Footwear (QC): 1 (total assist donning gripper socks.) Toileting Hygiene (QC): 1 (sit to stand lift for clothing managment and hygiene.) Assessment/Plan Assessment and Plan Assess & Plan/Chief Complaint Assessment: Critical illness myopathy COVID-19 pneumonia April 2021 Status post ventilator dependence Atrial fibrillation during intubation Cardiac arrest x2 Previous smoker Weight loss Plan: Inpatient rehab protocol Pain control Cardiology consult 08/05/2021: Supportive care Aggressive rehab Cardiology consult 08/06/2021: Supportive care Monitor blood pressure 08/07/2021: Intensive rehab Cardiology appreciated 08/08/21: Intensive rehab Reg diet (1) Typical atrial flutter Assessment & Plan: His electrocardiograms on 08/05 and 08/07 showed atrial flutter with 4-1 AV block. I will continue amiodarone and apixaban. I do not see any urgent need for cardioversion. (2) Persistent atrial fibrillation Assessment & Plan: He had atrial fibrillation during his previous hospitalization in our hospital 4 months ago. He he is now in atrial flutter as above. I suspect he goes back and forth from atrial flutter and atrial fibrillation. (3) Mixed hyperlipidemia Assessment & Plan: He has a history of hyperlipidemia and was taking atorvas tatin at home. Somewhere along the line during his prolonged hospitalization, the atorvastatin was discontinued. I restarted his atorvastatin. (4) Chronic hypotension Assessment & Plan: Somewhere along the line, he was started on midodrine over the past 4 months of hospitalization. He was receiving this every 8 hours. I cut this back to twice daily dosing on 08/06. We will follow his blood pressures closely and see if we may be able to discontinue this medication prior to discharge. (5) History of deep venous thrombosis Assessment & Plan: He had deep venous thrombosis when he was in an outside hospital. An inferior vena cava filter was placed at that time for unclear reasons. He has back on oral anticoagulation. I ordered an ultrasound in our hospital that did not show any evidence of deep venous thrombosis. Once he is discharged home, we can arrange having the filter removed. I do not believe we have anyone in this hospital who can perform this procedure. (6) Presence of inferior vena cava filter Assessment & Plan: Once he is discharged from our hospital, we can see about making arrangements to have the filter removed. (7) Stage 3 chronic kidney disease Assessment & Plan: This will need to be followed longitudinally. There is no indication to adjust the dose of apixaban based on his renal function. COTY SHIPMAN DO Aug 08, 2021 07:24
[2021-08-08] MEDS: APIXABAN 5 MG (ELIQUIS) TABLET PO SCH ×2 (08:02→20:32)
[2021-08-08] MEDS: SENNA W/DOCUSATE (SENOKOT S) TABLET PO SCH ×2 (08:02→20:51)
[2021-08-08] MEDS: MIDODRINE 10 MG (PROAMATINE) TAB PO SCH ×2 (08:02→20:32)
[2021-08-08] MEDS: FAMOTIDINE 20 MG (PEPCID) TABLET PO SCH (08:02)
[2021-08-08] MEDS: GABAPENTIN 100 MG (NEURONTIN) CAP PO SCH ×2 (08:03→16:43)
[2021-08-08] MEDS: DOCUSATE SODIUM 100 MG (COLACE) CAP PO SCH ×4 (08:03→20:51)
[2021-08-08] MEDS: LACTOBACILLUS ACIDOPHILUS (PROBIOTIC) CAPSULE PO SCH ×2 (08:03→20:32)
[2021-08-08] MEDS: AMIODARONE 200 MG (CORDARONE) TAB PO SCH (08:07)
[2021-08-08] MEDS: polyethylene glycoL POWDER 17 GM (MIRALAX) PACK PO SCH ×2 (08:09→19:14)
--- NOTE | 2021-08-08 12:40 | Cardiology Progress Note ---
Progress Note-Cardiology Events since last exam Date Seen by Provider: Aug 08, 2021 Time Seen by Provider: 12:38 Events since last exam I am following him due to atrial fibrillation and flutter. He was sitting up in bed eating lunch. He denies chest pain, palpitations, syncope, or ankle edema. His legs are weak and he has some mild dyspnea on exertion. Vitals Last set of Vitals Signs Vital Signs 08/08/21 08/08/21 07:07 09:00 Temp 36.6 Pulse 71 Resp 18 B/P (MAP) 104/69 (81) Pulse Ox 98 O2 Delivery Room Air Exam Vital Signs Vital Signs Date Time Temp Pulse Resp B/P (MAP) Pulse Ox O2 Delivery O2 Flow Rate FiO2 08/08/21 09:00 Room Air 08/08/21 07:07 36.6 71 18 104/69 (81) 98 Physical Exam General: Alert. No acute distress. He is cachectic. Eye: No xanthelasma. HENT: Normocephalic. Neck: Jugular venous pressure does not appear elevated. Respiratory: Lungs are clear to auscultation. Respirations are non-labored. Breath sounds are equal. Symmetrical chest wall expansion. Cardiovascular: Normal rate. Regular rhythm. No murmur. No gallop. No edema. Gastrointestinal: Soft. Normal bowel sounds. Skin: Warm. Dry. Diffuse ecchymoses on his upper and lower extremities bilaterally. Neurologic: Alert and oriented to person, place, time. Cranial nerves 3-11 grossly intact. Psychiatric: Cooperative. Appropriate mood & affect. Diagnosis/Problems Diagnosis/Problems (1) Typical atrial flutter Assessment & Plan: His electrocardiograms on 08/05 and 08/07 showed atrial flutter with 4-1 AV block. I will continue amiodarone and apixaban. I do not see any urgent need for cardioversion. I may consider cardioversion after discharge. (2) Persistent atrial fibrillation Assessment & Plan: He had atrial fibrillation during his previous hospitalization in our hospital 4 months ago. He he is now in atrial flutter as above. I suspect he goes back and forth from atrial flutter and atrial fibrillation. (3) Mixed hyperlipidemia Assessment & Plan: He has a history of hyperlipidemia and was taking atorvastatin at home. Somewhere along the line during his prolonged hospitalization, the atorvastatin was discontinued. I restarted his atorvastatin. (4) Chronic hypotension Assessment & Plan: Somewhere along the line, he was started on midodrine over the past 4 months of hospitalization. He was receiving this every 8 hours. I cut this back to twice daily dosing on 08/06. We will follow his blood pressures closely and see if we may be able to discontinue this medication prior to discharge. His systolic blood pressure has been just above 100 mmHg since cutting back midodrine. I will continue the present dosing for the time being. (5) History of deep venous thrombosis Assessment & Plan: He had deep venous thrombosis when he was in an outside hospital. An inferior vena cava filter was placed at that time for unclear reasons. He has back on oral anticoagulation. I ordered an ultrasound in our hospital that did not show any evidence of deep venous thrombosis. Once he is discharged home, we can arrange having the filter removed. I do not believe we have anyone in this hospital who can perform this procedure. (6) Presence of inferior vena cava filter Assessment & Plan: Once he is discharged from our hospital, we can see about making arrangements to have the filter removed. (7) Stage 3 chronic kidney disease Assessment & Plan: This will need to be followed longitudinally. There is no indication to adjust the dose of apixaban based on his renal function. MARTÍNEZ LEMON JR, MD Aug 08, 2021 12:40
[2021-08-08 20:18] VITALS: BP 107/58
[2021-08-08] MEDS: AtorvaSTATin TABLET 10 MG TABLET PO SCH (20:34)
[2021-08-09] MEDS: GABAPENTIN 100 MG (NEURONTIN) CAP PO SCH ×3 (01:35→17:03)
[2021-08-09] MEDS: MULTIVIT W/MINERALS TAB (THERAGRAN M) PO SCH (05:18)
[2021-08-09 06:11] LABS: BASOPHILS # (AUTO) 0.1 10^3/uL (0.0-0.1); BASOPHILS % (AUTO) 1 % (0-10); EOSINOPHILS # (AUTO) 0.1 10^3/uL (0.0-0.3); EOSINOPHILS % (AUTO) 2 % (0-10); HEMATOCRIT 34 % (40-54); HEMOGLOBIN 10.9 g/dL (13.3-17.7); LYMPHOCYTES # (AUTO) 2.2 10^3/uL (1.0-4.0); LYMPHOCYTES % (AUTO) 29 % (12-44); MEAN CORPUSCULAR HEMOGLOBIN 30 pg (25-34); MEAN CORPUSCULAR HGB CONC 32 g/dL (32-36); MEAN CORPUSCULAR VOLUME 94 fL (80-99); MEAN PLATELET VOLUME 9.3 fL (9.0-12.2); MONOCYTES # (AUTO) 0.6 10^3/uL (0.0-1.0); MONOCYTES % (AUTO) 9 % (0-12); NEUTROPHILS # (AUTO) 4.4 10^3/uL (1.8-7.8); NEUTROPHILS % (AUTO) 59 % (42-75); PLATELET COUNT 334 10^3/uL (130-400); WHITE BLOOD COUNT 7.4 10^3/uL (4.3-11.0)
[2021-08-09 06:35] LABS: ALBUMIN 3.6 GM/DL (3.2-4.5); BILIRUBIN,TOTAL 0.5 MG/DL (0.1-1.0); CALCIUM 9.6 MG/DL (8.5-10.1); CREATININE SERUM 1.53 MG/DL (0.60-1.30); POTASSIUM 4.1 MMOL/L (3.6-5.0); TOTAL PROTEIN 6.8 GM/DL (6.4-8.2)
[2021-08-09 07:59] VITALS: BP 84/52
[2021-08-09] MEDS: LACTOBACILLUS ACIDOPHILUS (PROBIOTIC) CAPSULE PO SCH ×2 (08:06→20:32)
[2021-08-09] MEDS: FAMOTIDINE 20 MG (PEPCID) TABLET PO SCH (08:07)
[2021-08-09] MEDS: APIXABAN 5 MG (ELIQUIS) TABLET PO SCH ×2 (08:07→20:32)
[2021-08-09] MEDS: MIDODRINE 10 MG (PROAMATINE) TAB PO SCH ×3 (08:07→17:03)
[2021-08-09] MEDS: SENNA W/DOCUSATE (SENOKOT S) TABLET PO SCH ×2 (08:08→20:35)
[2021-08-09] MEDS: polyethylene glycoL POWDER 17 GM (MIRALAX) PACK PO SCH ×2 (08:08→20:34)
[2021-08-09] MEDS: DOCUSATE SODIUM 100 MG (COLACE) CAP PO SCH ×4 (08:08→20:34)
[2021-08-09 08:11] VITALS: BP 87/54
--- NOTE | 2021-08-09 09:49 | PM&R Progress Note ---
Subjective HPI/CC On Admission Date Seen by Provider: Aug 09, 2021 Time Seen by Provider: 10:00 Subjective/Events-last exam 08/09/21: Pt doing really well today. EKG shows Atrial Flutter Low bp at 87/54 no symptoms though Amiodarone ordered Dr. Zhang will evaluate EKG Creatine 1.53 No dysphasia 08/08/21: Patient doing well Changing diet to regular Trach residual causes no issues with swallowing BM+ 08/07/2021: Patient doing really well Stood with the help of the parallel bars Checked meds and labs No pain is reported 08/06/2021: Patient doing pretty well No significant issues Short-term recall may be altered Checked meds and labs 08/05/2021: Pt doing really well Hgb 9.6 Creatinine is baseline at 1.54 Had a large BM last night Overall doing well Review of Systems General: Fatigue, Malaise Neurological: Weakness Objective Exam Vital Signs Vital Signs Date Time Temp Pulse Resp B/P (MAP) Pulse Ox O2 Delivery O2 Flow Rate FiO2 08/09/21 20:35 94 Room Air 08/09/21 20:00 36.7 92 20 110/61 (77) Capillary Refill : General Appearance: No Apparent Distress, WD/WN, Chronically ill, Thin HEENT: PERRL/EOMI, Normal ENT Inspection, Pharynx Normal Neck: Full Range of Motion, Normal Inspection, Non Tender, Supple, Carotid Bruit Respiratory: Chest Non Tender, Lungs Clear, Normal Breath Sounds, No Accessory Muscle Use, No Respiratory Distress Cardiovascular: Regular Rate, Rhythm, No Edema, No Gallop, No JVD, No Murmur, Normal Peripheral Pulses Gastrointestinal: Normal Bowel Sounds, No Organomegaly, No Pulsatile Mass, Non Tender, Soft Back: Normal Inspection, No CVA Tenderness, No Vertebral Tenderness Extremity: Normal Capillary Refill, Normal Inspection, Normal Range of Motion, Non Tender, No Calf Tenderness, No Pedal Edema Neurologic/Psychiatric: Alert, Oriented x3, No Motor/Sensory Deficits, Normal Mood/Affect, paint trimmer pipe bowls II-XII Norm as Tested, Motor Weakness (Severe muscle weakness upper and lower extremities) Skin: Normal Color, Warm/Dry Lymphatic: No Adenopathy Results/Procedures Lab Laboratory Tests 08/09/21 05:31 Patient resulted labs reviewed. FIM Transfers Therapy Code Descriptions/Definitions Functional [place] Measure: 0=Not Assessed/NA 4=Minimal Assistance 1=Total Assistance 5=Supervision or Setup 2=Maximal Assistance 6=Modified [place] 3=Moderate Assistance 7=Complete IndependenceSCALE: Activities may be completed with or without assistive devices. 3-Omlhlxqkvx-bpcwomi completes the activity by him/herself with no assistance from a helper. 5-Set-up or Clean-up Assistance-helper sets up or cleans up; patient completes activity. [place] assists only prior to or following the activity. 4-Supervision or Touching Assistance-helper provides verbal cues and/or touching/steadying and/or contact guard assistance as patient completes a ctivity. Assistance may be provided throughout the activity or intermittently. 3-Partial/Moderate Assistance-helper does LESS THAN HALF the effort. [place] lifts, holds or supports trunk or limbs, but provides less than half the effort. 2-Substantial/Maximal Assistance-helper does MORE THAN HALF the effort. [place] lifts or holds trunk or limbs and provides more than half the effort. 6-Mtfgvoovd-fapaac does ALL the effort. Patient does none of the effort to complete the activity. Or, the assistance of 2 or more helpers is required for the patient to complete the activity. If activity was not attempted, code reason: 7-Patient Refused. 9-Not Applicable-not attempted and the patient did not perform the activity before the current illness, exacerbation or injury. 10-Not Attempted due to Environmental Limitations-(lack of equipment, weather restraints, etc.). 88-Not Attempted due to Medical Conditions or Safety Concerns. Roll Left to Right (QC): 6 Sit to Lying (QC): 3 Sit to Stand (QC): 3 Chair/Ite-yg-Iivfi Xfer(QC): 3 Car Transfer (QC): 1 Gait Training Does the Patient Walk?: Yes Distance: 6'x3 Walk 10 feet (QC): 88 Walk 50 ft with 2 Turns(QC): 88 Walk 150 ft (QC): 88 Walking 10ft/uneven surface-QC: 88 Gait Persons Needed: 1 Gait Assistive Device: Parallel Bars Wheelchair Training Does the Pt Use a Wheelchair?: Yes Wheel 50 ft with 2 turns (QC): 4 Wheel 150 ft (QC): 4 Type of Wheelchair: Manual Stair Training 1 Step (curb) (QC): 88 4 Steps (QC): 88 12 Steps (QC): 88 Balance Picking up an Object (QC): 88 ADL-Treatment Eating (QC): 6 (Per pt report, IND with lunch. ) Oral Hygiene (QC): 5 (per clincial judgment, set up with task.) Shower/Bathe Self (QC): 1 (Sit to stand lift utilized to thoroughly wash/dry buttocks. Pt able to wash UEs, chest/abdomen, periarea and BLEs seated. OT assisted with buttocks.) Upper Body Dressing (QC): 3 (Pt doffed/donned button up shirt. Assistance provided with buttons and with threading LUE.) Lower Body Dressing (QC): 1 (2 person assist) On/Off Footwear (QC): 1 (total assist donning gripper socks.) Toileting Hygiene (QC): 1 (sit to stand lift for clothing managment and hygiene.) Assessment/Plan Assessment and Plan Assess & Plan/Chief Complaint Assessment: Critical illness myopathy COVID-19 pneumonia April 2021 Status post ventilator dependence Atrial fibrillation during intubation Cardiac arrest x2 Previous smoker Weight loss Plan: Inpatient rehab protocol Pain control Cardiology consult 08/05/2021: Supportive care Aggressive rehab Cardiology consult 08/06/2021: Supportive care Monitor blood pressure 08/07/2021: Intensive rehab Cardiology appreciated 08/08/21: Intensive rehab Reg diet 08/09/21: Supportive care Reg diet tolerated (1) Typical atrial flutter Assessment & Plan: His electrocardiograms on 08/05 and 08/07 showed atrial flutter with 4-1 AV block. I will continue amiodarone and apixaban. I do not see any urgent need for cardioversion. I may consider cardioversion after discharge. (2) Persistent atrial fibrillation Assessment & Plan: He had atrial fibrillation during his previous hospitali zation in our hospital 4 months ago. He he is now in atrial flutter as above. I suspect he goes back and forth from atrial flutter and atrial fibrillation. (3) Mixed hyperlipidemia Assessment & Plan: He has a history of hyperlipidemia and was taking ator vastatin at home. Somewhere along the line during his prolonged hospitalization, the atorvastatin was discontinued. I restarted his atorvastatin. (4) Chronic hypotension Assessment & Plan: Somewhere along the line, he was started on midodrine over the past 4 months of hospitalization. He was receiving this every 8 hours. I cut this back to twice daily dosing on 08/06. We will follow his blood pressures closely and see if we may be able to discontinue this medication prior to discharge. His systolic blood pressure has been just above 100 mmHg since cutting back midodrine. I will continue the present dosing for the time being. (5) History of deep venous thrombosis Assessment & Plan: He had deep venous thrombosis when he was in an outside hospital. An inferior vena cava filter was placed at that time for unclear reasons. He has back on oral anticoagulation. I ordered an ultrasound in our hospital that did not show any evidence of deep venous thrombosis. Once he is discharged home, we can arrange having the filter removed. I do not believe we have anyone in this hospital who can perform this procedure. (6) Presence of inferior vena cava filter Assessment & Plan: Once he is discharged from our hospital, we can see about making arrangements to have the filter removed. (7) Stage 3 chronic kidney disease Assessment & Plan: This will need to be followed longitudinally. There is no indication to adjust the dose of apixaban based on his renal function. COTY SHIPMAN DO Aug 09, 2021 09:49
--- NOTE | 2021-08-09 09:58 | Physical Therapy Daily Note ---
PT Daily Note-Current Subjective Patient in bed pre tx, agrees to PT, has no complaints of pain. Will be co- treating with OT due to poor patient mobility, strength, endurance, severe debility, coordinate UE and LE during activity, safety and reduce risk of falls. Appearance Patient in therapy gym, will continue with OT post tx. Mental Status Patient Orientation: Person, Place, Situation Transfers SCALE: Activities may be completed with or without assistive devices. 6-Ugqhpkrrow-ednhbxa completes the activity by him/herself with no assistance from a helper. 5-Set-up or Clean-up Assistance-helper sets up or cleans up; patient completes activity. [place] assists only prior to or following the activity. 4-Supervision or Touching Assistance-helper provides verbal cues and/or touching/steadying and/or contact guard assistance as patient completes activity. Assistance may be provided throughout the activity or intermittently. 3-Partial/Moderate Assistance-helper does LESS THAN HALF the effort. [place] lifts, holds or supports trunk or limbs, but provides less than half the effort. 2-Substantial/Maximal Assistance-helper does MORE THAN HALF the effort. [place] lifts or holds trunk or limbs and provides more than half the effort. 4-Jcqlzfovi-kjbpyg does ALL the effort. Patient does none of the effort to complete the activity. Or, the assistance of 2 or more helpers is required for the patient to complete the activity. If activity was not attempted, code reason: 7-Patient Refused. 9-Not Applicable-not attempted and the patient did not perform the activity before the current illness, exacerbation or injury. 10-Not Attempted due to Environmental Limitations-(lack of equipment, weather restraints, etc.). 88-Not Attempted due to Medical Conditions or Safety Concerns. Roll Left & Right (QC): 6 Lying to Sitting/Side of Bed(Q: 4 Sit to Stand (QC): 3 Chair/Hhk-vl-Xlnlf Xfer(QC): 3 Mod assist for sit to stand and stand pivot transfers using a rolling walker. Patient transfers to shower chair, taken to shower in room, bathes, dresses partially, transfers to WC finishing dressing along the way. Propels WC to therapy gym. Patient needs cues for positioning, hand placement, and safety with virtually every transfer. Patient transfers to chair with a thick cushion in it to have an elevated seating position and he stands x5 from it with cues for positioning and working on not leaning backward. Patient also goes to the parallel bars and works on standing and keeping balance a couple of times. Patient has a tendency to "plop" when sitting, needs cues almost every time for this. He also needs cues to try to increase his endurance, he tends to give up too early. Gait Training Distance: 3'x2, 10' Walk 10 feet (QC): 4 Gait Persons Needed: 1 Gait Assistive Device: FWW Patient really struggles with retropulsion during ambulation and standing, he n eeds cues for positioning and to lean forward and bear weight through his arms. Patient fatigues quickly. Treatments PT performed bed mobility and transfers, ambulation, WC mobility, standing, balance, positioning and safety during bathing and dressing, OT performed bathing, dressing, UE positioning and safety during activity, positioning cues for balance. Assessment Current Status: Poor Progress patient still struggles with retropulsion PT Short Term Goals Short Term Goals Time Frame: Aug 11, 2021 Roll Left & Right: 6 Sit to lyin Lying to sitting on side of be: 3 Sit to stand: 2 Chair/goz-wg-mgmfc transfer: 3 PT Changeover Operator Goals Group Home Goals PT Changeover Operator Goals Time Frame: Aug 25, 2021 Roll Left & Right (QC): 6 Sit to Lying (QC): 6 Lying-Sitting on Side/Bed(QC): 6 Sit to Stand (QC): 3 Chair/Pab-le-Fasqn Xfer(QC): 3 Toilet Transfer (QC): 3 Car Transfer (QC): 3 Does the Patient Walk: No and Walking Goal NOT indicated Walk 10 feet (QC): 88 Walk 50ft with 2 Turns (QC): 88 Walk 150 ft (QC): 88 Walking 10ft on Uneven Surface: 88 1 Step (curb) (QC): 88 4 Steps (QC): 88 12 Steps (QC): 88 Picking up an Object (QC): 88 Wheel 50 feet with 2 turns (QC: 6 Wheel 150 feet: 6 PT Plan Problem List Problem List: Activity Tolerance, Functional Strength, Safety, Balance, Gait, Transfer, Bed Mobility, ROM Treatment/Plan Treatment Plan: Continue Plan of Care Treatment Plan: Bed Mobility, Education, Functional Activity Glo, Functional Strength, Group Therapy, Gait, Safety, Therapeutic Exercise, Transfers Treatment Duration: Aug 25, 2021 Frequency: At least 5 of 7 days/Wk (IRF) Estimated Hrs Per Day: 1.5 hours per day Patient and/or Family Agrees t: Yes Safety Risks/Education Patient Education: Gait Training, Transfer Techniques, Correct Positioning, W/C Management, Safety Issues Teaching Recipient: Patient Teaching Methods: Demonstration, Discussion Response to Teaching: Reinforcement Needed Time/GCodes Time In: 0900 Time Out: 1000 Total Billed Treatment Time: 60 Total Billed Treatment 1 visit FA 60' co-treated for 60' FLASH ALLEN PT Aug 09, 2021 09:58
--- NOTE | 2021-08-09 10:01 | Occupational Ther Daily Note ---
OT Current Status-Daily Note Subjective Pt agreeable to OT tx, does not verbalize pain rating. ADL-Treatment Therapy Code Descriptions/Definitions Functional [place] Measure: 0=Not Assessed/NA 4=Minimal Assistance 1=Total Assistance 5=Supervision or Setup 2=Maximal Assistance 6=Modified [place] 3=Moderate Assistance 7=Complete IndependenceSCALE: Activities may be completed with or without assistive devices. 8-Dchzamywbv-dochaek completes the activity by him/herself with no assistance from a helper. 5-Set-up or Clean-up Assistance-helper sets up or cleans up; patient completes activity. [place] assists only prior to or following the activity. 4-Supervision or Touching Assistance-helper provides verbal cues and/or touching/steadying and/or contact guard assistance as patient completes activity. Assistance may be provided throughout the activity or intermittently. 3-Partial/Moderate Assistance-helper does LESS THAN HALF the effort. [place] lifts, holds or supports trunk or limbs, but provides less than half the effort. 2-Substantial/Maximal Assistance-helper does MORE THAN HALF the effort. [place] lifts or holds trunk or limbs and provides more than half the effort. 7-Bnzlxazmi-ufpqsu does ALL the effort. Patient does none of the effort to complete the activity. Or, the assistance of 2 or more helpers is required for the patient to complete the activity. If activity was not attempted, code reason: 7-Patient Refused. 9-Not Applicable-not attempted and the patient did not perform the activity before the current illness, exacerbation or injury. 10-Not Attempted due to Environmental Limitations-(lack of equipment, weather restraints, etc.). 88-Not Attempted due to Medical Conditions or Safety Concerns. Shower/Bathe Self (QC): 3 (Pt able to wash BUEs, chest/abdomen, periarea, thighs. Assistance provided to wash feet and buttocks.) Upper Body Dressing (QC): 3 (Pt able to thread UEs into shirt, min A overhead.) Lower Body Dressing (QC): 1 (assist x2 in stand required, assistance with all parts.) On/Off Footwear: 3 (Min A with donning/doffing gripper socks after education on AE.) Other Treatment [id number] OT/PT cotreat due to skill of 2 clinicians required which a technical systems architect could not perform in order to coordinate UE/LEs, decrease fall risk, and due to pt's limitations in strength, activity tolerance, mobility, transfers and balance. OT focused on UE placement, cues for sequencing and safety, and ADLs, PT focused on LE placement, gross overall movement, transfers/mobility. Pt transferred supine to sit EOB, then SPT to UT. Pt taken into his shower, where clothing was doffed and shower complete. Pt then donned clean clothes. Pt transferred from UT to w/c, and propelled to therapy gym. Pt transferred to regular chair with built up cushion to increase seat height. Pt completes x5 stands with cues for positioning and to focus on not leaning backwards. Pt taken into parallel bars, standing and attempting to maintain balance without UE support. Pt has a tendency to "plop" when sitting, needing cues with all t ransfers. He also requires cues to increase activity tolerance, as he tends to sit down and give up too early. Cues required for positioning, hand placement and safety with all transfers. Mod A sit to stand and SPT using FWW. [id number] OT tx. Pt propelled w/c back to his room. Education provided on AE for footwear. Pt doffed gripper socks using a clinic office manager, then used sock aide to don gripper socks, min A overall. Pt completed SPT from w/c to EOB, requiring cues to keep turning, as pt attempted to sit to early and would have sat on the very edge of the bed if not the floor. Pt educated on safety aspects of making sure the surface is behind him prior to sitting and keeping the walker with him throughout the whole transfer. Post tx, pt laying in bed, call light in reach and all needs met. Education OT Patient Education: Correct positioning, Energy conservation, Exercise program, Modified ADL techniques, Progress toward Goal/Update tx plan, Purpose of tx/functional activities, Rehab process, Safety issues, Transfer techniques Teaching Recipient: Patient Teaching Methods: Discussion Response to Teaching: Verbalize Understanding, Reinforcement Needed OT Short Term Goals Short Term Goals Time Frame: Aug 18, 2021 Toileting hygiene: 3 Shower/bathe self: 3 Upper body dressin Lower body dressin Putting on/taking off footwear: 3 OT Telephone Claims Representative Goals Correction Goals Time Frame: Sep 03, 2021 Eating (QC): 6 Oral Hygiene (QC): 6 Toileting Hygiene (QC): 6 Shower/Bathe Self (QC): 6 Upper Body Dressing (QC): 6 Lower Body Dressing (QC): 6 On/Off Footwear (QC): 6 Additional Goals: 1-Demonstrate ADL Tasks, 2-Verbalize Understanding, 3- ImproveStrength/Glo 1=Demonstrate adherence to instructed precautions during ADL tasks. 2=Patient will verbalize/demonstrate understanding of assistive devices/modifications for ADL. 3=Patient will improve strength/tolerance for activity to enable patient to perform ADL's. OT Education/Plan Problem List/Assessment Assessment: Decreased Activ Tolerance, Decreased Safety Aware, Decreased UE Strength, Impaired Coordination, Impaired Funct Balance, Impaired I ADL's, Impaired Self-Care Skills Discharge Recommendations Plan/Recommendations: Continue POC Treatment Plan/Plan of Care Patient would benefit from OT for education, treatment and training to promote independence in ADL's, mobility, safety and/or upper extremity function for ADL's. Plan of Care: ADL Retraining, Functional Mobility, Group Exercise/Act as Ind, U E Funct Exercise/Act Treatment Duration: Sep 03, 2021 Frequency: At least 5 of 7 days/Wk (IRF) Estimated Hrs Per Day: 1.5 hours per day Agreement: Yes Rehab Potential: Fair Time/GCodes Start Time: 09:00 Stop Time: 10:15 Total Time Billed (hr/min): 75 Billed Treatment Time Cotreat x60', OT tx x15' 1, ADL 3 (45'), FA 2 (30') ADAM FISHER OT Aug 09, 2021 10:01
[2021-08-09 10:46] VITALS: BP 83/53
[2021-08-09] MEDS: AMIODARONE 200 MG (CORDARONE) TAB PO SCH (10:48)
--- NOTE | 2021-08-09 11:44 | Physical Therapy Daily Note ---
PT Daily Note-Current Subjective Patient in bed pre tx, agrees to PT, has no complaints of pain. Appearance Patient in bed post tx with nurse call, phone, tray, all needs met. Mental Status Patient Orientation: Person, Place, Situation Transfers SCALE: Activities may be completed with or without assistive devices. 7-Bybmgpwgew-muuitzp completes the activity by him/herself with no assistance from a helper. 5-Set-up or Clean-up Assistance-helper sets up or cleans up; patient completes activity. [place] assists only prior to or following the activity. 4-Supervision or Touching Assistance-helper provides verbal cues and/or touching/steadying and/or contact guard assistance as patient completes activity. Assistance may be provided throughout the activity or intermittently. 3-Partial/Moderate Assistance-helper does LESS THAN HALF the effort. [place] lifts, holds or supports trunk or limbs, but provides less than half the effort. 2-Substantial/Maximal Assistance-helper does MORE THAN HALF the effort. [place] lifts or holds trunk or limbs and provides more than half the effort. 6-Vdioqvsnf-asouod does ALL the effort. Patient does none of the effort to complete the activity. Or, the assistance of 2 or more helpers is required for the patient to complete the activity. If activity was not attempted, code reason: 7-Patient Refused. 9-Not Applicable-not attempted and the patient did not perform the activity before the current illness, exacerbation or injury. 10-Not Attempted due to Environmental Limitations-(lack of equipment, weather restraints, etc.). 88-Not Attempted due to Medical Conditions or Safety Concerns. Exercises Supine Ex: Bridging (x15 ), Ankle pumps, Quad Set, Glut sets, Heel Slides, Short Arc Quads, Straight leg raise, Hip abd/add Supine Reps: 20 Treatments LE strengthening Assessment Current Status: Fair Progress slowly improving LE strength PT Short Term Goals Short Term Goals Time Frame: Aug 11, 2021 Roll Left & Right: 6 Sit to lyin Lying to sitting on side of be: 3 Sit to stand: 2 Chair/mlo-tb-bandu transfer: 3 PT Nursing Home Goals Laboratory Mechanic Helper Goals PT Nursing Home Goals Time Frame: Aug 25, 2021 Roll Left & Right (QC): 6 Sit to Lying (QC): 6 Lying-Sitting on Side/Bed(QC): 6 Sit to Stand (QC): 3 Chair/Ylm-qr-Bfpft Xfer(QC): 3 Toilet Transfer (QC): 3 Car Transfer (QC): 3 Does the Patient Walk: No and Walking Goal NOT indicated Walk 10 feet (QC): 88 Walk 50ft with 2 Turns (QC): 88 Walk 150 ft (QC): 88 Walking 10ft on Uneven Surface: 88 1 Step (curb) (QC): 88 4 Steps (QC): 88 12 Steps (QC): 88 Picking up an Object (QC): 88 Wheel 50 feet with 2 turns (QC: 6 Wheel 150 feet: 6 PT Plan Problem List Problem List: Activity Tolerance, Functional Strength, Safety, Balance, Gait, Transfer, Bed Mobility, ROM Treatment/Plan Treatment Plan: Continue Plan of Care Treatment Plan: Bed Mobility, Education, Functional Activity Glo, Functional Strength, Group Therapy, Gait, Safety, Therapeutic Exercise, Transfers Treatment Duration: Aug 25, 2021 Frequency: At least 5 of 7 days/Wk (IRF) Estimated Hrs Per Day: 1.5 hours per day Patient and/or Family Agrees t: Yes Safety Risks/Education Patient Education: Correct Positioning, Safety Issues Teaching Recipient: Patient Teaching Methods: Demonstration, Discussion Response to Teaching: Reinforcement Needed Time/GCodes Time In: 1130 Time Out: 1145 Total Billed Treatment Time: 15 Total Billed Treatment 1 visit EX FLASH COLLINS PT Aug 09, 2021 11:44
--- NOTE | 2021-08-09 12:27 | Speech Therapy Daily Note ---
Speech Daily Progress Note Subjective Date Seen by Provider: Aug 09, 2021 Time Seen by Provider: 10:15 The patient was lying in bed, awake and alert upon entrance. The patient greeted the clinician appropriately and was agreeable to participation in the cognitive linguistic treatment session. The patient reports fatigue from his recent physical therapy session however is satisfied with his physical process stating, "I'm still a little shaky and I want it to go faster but I know it is going well." Additionally, the patient stated his memory feels "a little slow" but is confident once he arrives home to familiar areas he will feel much better. The patient was upgraded to a regular diet with thin liquids over the weekend. The patient denied s/s of suspected aspiration with the PO items or any difficulties. Objective - Orientation: The patient is independently oriented to self, month, day of week, date, and year. The patient states he is currently in "[place]." With one verbal cue, the patient was able to self-correct to [place]. - Word List Retention: The patient was provided three or four words and asked a question immediately following. With three words, the patient displayed 33% accuracy (independently). With verbal repetition of the three words, the patient's accuracy increased to 100%. The patient displayed 30% accuracy with four words, independently. The patient's accuracy increased to 80% with repetition of the four words. The patient appears aware of the difficulties he is experiencing stating, "Oh boy, I'm not doing too well on this." Assessment Assessment Current Status: Good Progress Treatment Plan Continue Plan of Care Speech Short Term Goals Short Term Goals Short Term Goals 1. The patient will participate and complete memory exercises with 80% accuracy, independently. 2. The patient will complete functional problem solving tasks with 80% accuracy, independently. Time Frame-STG: Two Weeks Speech Longterm Goals Longterm Goals 1. The patient will demonstrate improved cognitive linguistic function for return and discharge to the least restrictive environment. Time Frame: Three Weeks Speech-Plan Treatment Plan Speech Therapy Treatment Plan: Continue Plan of Care Treatment Duration: Aug 05, 2021 Frequency: 4 times per week (Four to five times per week.) Estimated Hrs Per Day: .5 hour per day Rehab Potential: Fair Pt/Family Agrees to Plan: Yes Safety Risks/Education Teaching Recipient: Patient Teaching Methods: Discussion Response to Teaching: Verbalize Understanding Education Topics Provided: External Memory Strategies Time Speech Therapy Time In: 10:15 Speech Therapy Time Out: 10:45 Total Billed Time: 30 Billed Treatment Time 1B[facility] Aug 09, 2021 12:26
--- NOTE | 2021-08-09 15:17 | Cardiology Progress Note ---
Progress Note-Cardiology Events since last exam Date Seen by Provider: Aug 09, 2021 Time Seen by Provider: 15:13 Events since last exam I have been following him due to atrial fibrillation and flutter. The nurse called me this morning because his blood pressure was in the 90s systolic. He denied lightheadedness or syncope. He denies chest discomfort, dyspnea at rest, palpitations, or ankle edema. Certain portions of this document may have been dictated utilizing voice recognition technology. Inherent to this technology, typographical and grammatical errors may exist. As much as I am diligent to identify and correct these mistakes, some errors may remain in the document. Vitals Last set of Vitals Signs Vital Signs 08/09/21 08/09/21 08/09/21 08/09/21 07:59 08:11 09:00 10:46 Temp 36.2 Pulse 72 Resp 14 B/P (MAP) 83/53 (63) Pulse Ox 97 O2 Delivery Room Air Labs Labs Laboratory Tests 08/09/21 05:31 Exam Vital Signs Vital Signs Date Time Temp Pulse Resp B/P (MAP) Pulse Ox O2 Delivery O2 Flow Rate FiO2 08/09/21 10:46 83/53 (63) 08/09/21 09:00 Room Air 08/09/21 08:11 72 08/09/21 07:59 36.2 14 97 Physical Exam General: Alert. No acute distress. He is cachectic and appears chronically ill. Eye: No xanthelasma. HENT: Normocephalic. Neck: Jugular venous pressure does not appear elevated. Respiratory: Lungs are clear to auscultation. Respirations are non-labored. Breath sounds are equal. Symmetrical chest wall expansion. Cardiovascular: Normal rate. Regular rhythm. No murmur. No gallop. No edema. Gastrointestinal: Soft. Normal bowel sounds. Skin: Warm. Dry. Multiple areas of ecchymoses on his arms and legs. Neurologic: Alert and oriented to person, place, time. Cranial nerves 3-11 gr ossly intact. Psychiatric: Cooperative. Appropriate mood & affect. Labs Laboratory Tests Test 08/09/21 05:31 Range/Units White Blood Count 7.4 4.3-11.0 10^3/uL Red Blood Count 3.58 L 4.30-5.52 10^6/uL Hemoglobin 10.9 L 13.3-17.7 g/dL Hematocrit 34 L 40-54 % Mean Corpuscular Volume 94 80-99 fL Mean Corpuscular Hemoglobin 30 25-34 pg Mean Corpuscular Hemoglobin Concent 32 32-36 g/dL Red Cell Distribution Width 17.0 H 10.0-14.5 % Platelet Count 334 130-400 10^3/uL Mean Platelet Volume 9.3 9.0-12.2 fL Immature Granulocyte % (Auto) 0 % Neutrophils (%) (Auto) 59 42-75 % Lymphocytes (%) (Auto) 29 12-44 % Monocytes (%) (Auto) 9 0-12 % Eosinophils (%) (Auto) 2 0-10 % Basophils (%) (Auto) 1 0-10 % Neutrophils # (Auto) 4.4 1.8-7.8 10^3/uL Lymphocytes # (Auto) 2.2 1.0-4.0 10^3/uL Monocytes # (Auto) 0.6 0.0-1.0 10^3/uL Eosinophils # (Auto) 0.1 0.0-0.3 10^3/uL Basophils # (Auto) 0.1 0.0-0.1 10^3/uL Immature Granulocyte # (Auto) 0.0 0.0-0.1 10^3/uL Sodium Level 140 135-145 MMOL/L Potassium Level 4.1 3.6-5.0 MMOL/L Chloride Level 105 98-107 MMOL/L Carbon Dioxide Level 23 21-32 MMOL/L Anion Gap 12 5-14 MMOL/L Blood Urea Nitrogen 28 H 7-18 MG/DL Creatinine 1.53 H 0.60-1.30 MG/DL Estimat Glomerular Filtration Rate 45 BUN/Creatinine Ratio 18 Glucose Level 83 70-105 MG/DL Calcium Level 9.6 8.5-10.1 MG/DL Corrected Calcium 9.9 8.5-10.1 MG/DL Total Bilirubin 0.5 0.1-1.0 MG/DL Aspartate Amino Transf (AST/SGOT) 19 5-34 U/L Alanine Aminotransferase (ALT/SGPT) 14 0-55 U/L Alkaline Phosphatase 61 40-136 U/L Total Protein 6.8 6.4-8.2 GM/DL Albumin 3.6 3.2-4.5 GM/DL Diagnosis/Problems Diagnosis/Problems (1) Chronic hypotension Assessment & Plan: Most likely related to profound weight loss ever since he was admitted to the hospital in April with Covid infection. He had been placed on midodrine in an outside facility. I had been attempting to wean this off. Due to low blood pressure this morning, I have put this back to 5 mg 3 times daily. I encouraged him to drink plenty of fluids. He did not appear to have symptoms with the low blood pressure this morning. (2) Typical atrial flutter Assessment & Plan: His electrocardiograms on 08/05 and 08/07 showed atrial flutter with 4-1 AV block. I will continue amiodarone and apixaban. I do not see any urgent need for cardioversion. I may consider cardioversion after discharge. (3) Persistent atrial fibrillation Assessment & Plan: He had atrial fibrillation during his previous hospitalization in our hospital 4 months ago. He he is now in atrial flutter as above. I suspect he goes back and forth from atrial flutter and atrial fibrillation. We will proceed as above. (4) Mixed hyperlipidemia Assessment & Plan: He has a history of hyperlipidemia and was taking atorvastatin at home. Somewhere along the line during his prolonged hospitalization, the atorvastatin was discontinued. I restarted his atorvastatin. (5) History of deep venous thrombosis Assessment & Plan: He had deep venous thrombosis when he was in an outside hospital. An inferior vena cava filter was placed at that time for unclear reasons. He Is back on oral anticoagulation. I ordered an ultrasound in our hospital that did not show any evidence of deep venous thrombosis. Once he is discharged home, we can arrange to have the filter removed. I do not believe we have anyone in this hospital who can perform this procedure. (6) Presence of inferior vena cava filter Assessment & Plan: As above, once he is discharged from our hospital, we can see about making arrangements to have the filter removed. (7) Stage 3 chronic kidney disease Assessment & Plan: This will need to be followed longitudinally. There is no indication to adjust the dose of apixaban based on his renal function. MARTÍNEZ LEMON JR, MD Aug 09, 2021 15:17
[2021-08-09 17:04] VITALS: BP 101/62
[2021-08-09 20:00] VITALS: BP 110/61
[2021-08-09] MEDS: AtorvaSTATin TABLET 10 MG TABLET PO SCH (20:32)
[2021-08-10] MEDS: GABAPENTIN 100 MG (NEURONTIN) CAP PO SCH ×3 (00:07→17:22)
--- NOTE | 2021-08-10 06:13 | PM&R Progress Note ---
Subjective HPI/CC On Admission Date Seen by Provider: Aug 10, 2021 Time Seen by Provider: 09:30 Subjective/Events-last exam 08/10/21: Pt is doing well Pt appreciates Dr. Zhang seeing him Pt will see Dr. Molina to remove PEG tube placed on 04/30/21 Clearer thoughts but thought his was his mother Pt is getting protein shakes since he lost 60 lbs through Covid 08/09/21: Pt doing really well today. EKG shows Atrial Flutter Low bp at 87/54 no symptoms though Amiodarone ordered Dr. Zhang will evaluate EKG Creatine 1.53 No dysphasia 08/08/21: Patient doing well Changing diet to regular Trach residual causes no issues with swallowing BM+ 08/07/2021: Patient doing really well Stood with the help of the parallel bars Checked meds and labs No pain is reported 08/06/2021: Patient doing pretty well No significant issues Short-term recall may be altered Checked meds and labs 08/05/2021: Pt doing really well Hgb 9.6 Creatinine is baseline at 1.54 Had a large BM last night Overall doing well Review of Systems General: Fatigue, Malaise Neurological: Confusion Objective Exam Vital Signs Vital Signs Date Time Temp Pulse Resp B/P (MAP) Pulse Ox O2 Delivery O2 Flow Rate FiO2 08/10/21 21:40 37.2 08/10/21 20:46 97 Room Air 08/10/21 20:00 70 18 104/65 (78) Capillary Refill : General Appearance: No Apparent Distress, WD/WN, Chronically ill, Thin HEENT: PERRL/EOMI, Normal ENT Inspection, Pharynx Normal Neck: Full Range of Motion, Normal Inspection, Non Tender, Supple, Carotid Bruit Respiratory: Chest Non Tender, Lungs Clear, Normal Breath Sounds, No Accessory Muscle Use, No Respiratory Distress Cardiovascular: Regular Rate, Rhythm, No Edema, No Gallop, No JVD, No Murmur, Normal Peripheral Pulses Gastrointestinal: Normal Bowel Sounds, No Organomegaly, No Pulsatile Mass, Non Tender, Soft Back: Normal Inspection, No CVA Tenderness, No Vertebral Tenderness Extremity: Normal Capillary Refill, Normal Inspection, Normal Range of Motion, Non Tender, No Calf Tenderness, No Pedal Edema Neurologic/Psychiatric: Alert, Oriented x3, No Motor/Sensory Deficits, Normal Mood/Affect, food and beverage server II-XII Norm as Tested, Motor Weakness (Severe muscle weakness upper and lower extremities) Skin: Normal Color, Warm/Dry Lymphatic: No Adenopathy Results/Procedures Lab Patient resulted labs reviewed. FIM Transfers Therapy Code Descriptions/Definitions Functional [place] Measure: 0=Not Assessed/NA 4=Minimal Assistance 1=Total Assistance 5=Supervision or Setup 2=Maximal Assistance 6=Modified [place] 3=Moderate Assistance 7=Complete IndependenceSCALE: Activities may be completed with or without assistive devices. 7-Ihyypjyqll-agngzly completes the activity by him/herself with no assistance from a helper. 5-Set-up or Clean-up Assistance-helper sets up or cleans up; patient completes activity. [place] assists only prior to or following the activity. 4-Supervision or Touching Assistance-helper provides verbal cues and/or touching/steadying and/or contact guard assistance as patient completes activity. Assistance may be provided throughout the activity or intermittently. 3-Partial/Moderate Assistance-helper does LESS THAN HALF the effort. [place] lifts, holds or supports trunk or limbs, but provides less than half the effort. 2-Substantial/Maximal Assistance-helper does MORE THAN HALF the effort. [place] lifts or holds trunk or limbs and provides more than half the effort. 0-Nouqrectv-spnvss does ALL the effort. Patient does none of the effort to complete the activity. Or, the assistance of 2 or more helpers is required for the patient to complete the activity. If activity was not attempted, code reason: 7-Patient Refused. 9-Not Applicable-not attempted and the patient did not perform the activity before the current illness, exacerbation or injury. 10-Not Attempted due to Environmental Limitations-(lack of equipment, weather restraints, etc.). 88-Not Attempted due to Medical Conditions or Safety Concerns. Roll Left to Right (QC): 6 Sit to Lying (QC): 3 Sit to Stand (QC): 3 Chair/Fud-hc-Sqjgj Xfer(QC): 3 Car Transfer (QC): 1 Gait Training Does the Patient Walk?: Yes Distance: 3'x2, 10' Walk 10 feet (QC): 4 Walk 50 ft with 2 Turns(QC): 88 Walk 150 ft (QC): 88 Walking 10ft/uneven surface-QC: 88 Gait Persons Needed: 1 Gait Assistive Device: FWW Wheelchair Training Does the Pt Use a Wheelchair?: Yes Wheel 50 ft with 2 turns (QC): 4 Wheel 150 ft (QC): 4 Type of Wheelchair: Manual Stair Training 1 Step (curb) (QC): 88 4 Steps (QC): 88 12 Steps (QC): 88 Balance Picking up an Object (QC): 88 ADL-Treatment Eating (QC): 6 (Per pt report, IND with lunch. ) Oral Hygiene (QC): 5 (per clincial judgment, set up with task.) Shower/Bathe Self (QC): 3 (Pt able to wash BUEs, chest/abdomen, periarea, thighs. Assistance provided to wash feet and buttocks.) Upper Body Dressing (QC): 3 (Pt able to thread UEs into shirt, min A overhead.) Lower Body Dressing (QC): 1 (assist x2 in stand required, assistance with all parts.) On/Off Footwear (QC): 3 (Min A with donning/doffing gripper socks after education on AE.) Toileting Hygiene (QC): 1 (sit to stand lift for clothing managment and hygiene.) Assessment/Plan Assessment and Plan Assess & Plan/Chief Complaint Assessment: Critical illness myopathy COVID-19 pneumonia April 2021 Status post ventilator dependence Atrial fibrillation during intubation Cardiac arrest x2 Previous smoker Weight loss Plan: Inpatient rehab protocol Pain control Cardiology consult 08/05/2021: Supportive care Aggressive rehab Cardiology consult 08/06/2021: Supportive care Monitor blood pressure 08/07/2021: Intensive rehab Cardiology appreciated 08/08/21: Intensive rehab Reg diet 08/09/21: Supportive care Reg diet tolerated 08/10/21: Monitor weight loss Increase aggressive rehab (1) Chronic hypotension Assessment & Plan: Most likely related to profound weight loss ever since he was admitted to the hospital in April with Covid infection. He had been placed on midodrine in an outside facility. I had been attempting to wean this off. Due to low blood pressure this morning, I have put this back to 5 mg 3 times daily. I encouraged him to drink plenty of fluids. He did not appear to have symptoms with the low blood pressure this morning. (2) Typical atrial flutter Assessment & Plan: His electrocardiograms on 08/05 and 08/07 showed atrial flutter with 4-1 AV block. I will continue amiodarone and apixaban. I do not see any urgent need for cardioversion. I may consider cardioversion after discharge. (3) Persistent atrial fibrillation Assessment & Plan: He had atrial fibrillation during his previous hospitalization in our hospital 4 months ago. He he is now in atrial flutter as above. I suspect he goes back and forth from atrial flutter and atrial fibrillation. We will proceed as above. (4) Mixed hyperlipidemia Assessment & Plan: He has a history of hyperlipidemia and was taking atorvastatin at home. Somewhere along the line during his prolonged hospitalization, the atorvastatin was discontinued. I restarted his atorvastatin. (5) History of deep venous thrombosis Assessment & Plan: He had deep venous thrombosis when he was in an outside hospital. An inferior vena cava filter was placed at that time for unclear reasons. He Is back on oral anticoagulation. I ordered an ultrasound in our hospital that did not show any evidence of deep venous thrombosis. Once he is discharged home, we can arrange to have the filter removed. I do not believe we have anyone in this hospital who can perform this procedure. (6) Presence of inferior vena cava filter Assessment & Plan: As above, once he is discharged from our hospital, we can see about making arrangements to have the filter removed. (7) Stage 3 chronic kidney disease Assessment & Plan: This will need to be followed longitudinally. There is no indication to adjust the dose of apixaban based on his renal function. COTY SHIPMAN DO Aug 10, 2021 06:13
[2021-08-10] MEDS: MULTIVIT W/MINERALS TAB (THERAGRAN M) PO SCH (06:43)
[2021-08-10 07:33] VITALS: BP 90/58
[2021-08-10] MEDS: APIXABAN 5 MG (ELIQUIS) TABLET PO SCH ×2 (07:57→20:43)
[2021-08-10] MEDS: LACTOBACILLUS ACIDOPHILUS (PROBIOTIC) CAPSULE PO SCH ×2 (07:57→20:43)
[2021-08-10] MEDS: FAMOTIDINE 20 MG (PEPCID) TABLET PO SCH (07:58)
[2021-08-10] MEDS: polyethylene glycoL POWDER 17 GM (MIRALAX) PACK PO SCH ×2 (07:58→20:47)
[2021-08-10] MEDS: AMIODARONE 200 MG (CORDARONE) TAB PO SCH (07:58)
[2021-08-10] MEDS: DOCUSATE SODIUM 100 MG (COLACE) CAP PO SCH ×4 (07:58→20:47)
[2021-08-10] MEDS: MIDODRINE 10 MG (PROAMATINE) TAB PO SCH ×3 (08:04→17:22)
--- NOTE | 2021-08-10 09:32 | Occupational Ther Daily Note ---
OT Current Status-Daily Note Subjective Pt in bed, agreeable to OT Tx. Pt states his son and mother is coming to visit him later. When pt returned to room, 2 visitors present. Pt introduced as son and mother, but the female was actually his spouse. Mental Status/Objective Patient Orientation: Person, Confused, Place, Situation Attachments: PEG Tube ADL-Treatment Therapy Code Descriptions/Definitions Functional [place] Measure: 0=Not Assessed/NA 4=Minimal Assistance 1=Total Assistance 5=Supervision or Setup 2=Maximal Assistance 6=Modified [place] 3=Moderate Assistance 7=Complete IndependenceSCALE: Activities may be completed with or without assistive devices. 7-Suuiwnerha-xnejnwo completes the activity by him/herself with no assistance from a helper. 5-Set-up or Clean-up Assistance-helper sets up or cleans up; patient completes activity. [place] assists only prior to or following the activity. 4-Supervision or Touching Assistance-helper provides verbal cues and/or touching/steadying and/or contact guard assistance as patient completes activity. Assistance may be provided throughout the activity or intermittently. 3-Partial/Moderate Assistance-helper does LESS THAN HALF the effort. [place] lifts, holds or supports trunk or limbs, but provides less than half the effort. 2-Substantial/Maximal Assistance-helper does MORE THAN HALF the effort. [place] lifts or holds trunk or limbs and provides more than half the effort. 4-Mlkzfkbvv-wczqqj does ALL the effort. Patient does none of the effort to complete the activity. Or, the assistance of 2 or more helpers is required for the patient to complete the activity. If activity was not attempted, code reason: 7-Patient Refused. 9-Not Applicable-not attempted and the patient did not perform the activity before the current illness, exacerbation or injury. 10-Not Attempted due to Environmental Limitations-(lack of equipment, weather restraints, etc.). 88-Not Attempted due to Medical Conditions or Safety Concerns. Other Treatment OT/PT cotreat due to skill of 2 clinicians required which a rehab services aide could not perform in order to coordinate UE/LEs, decrease fall risk, and due to pt's limitations in strength, activity tolerance, mobility, transfers and balance. OT focused on UE placement, cues for sequencing and safety, and ADLs, PT focused on LE placement, gross overall movement, transfers/mobility. Pt transferred supine to sit EOB, used FWW to transfer to w/c. Pt performed functional mobility around [facility] common area/2nd floor and into therapy gym. Pt performed functional mobility x3 sets in therapy gym using FWW, cues required with each sit <-> stand for UE placement, positioning and safety. Pt performed 3x10 leg presses with resistance in order to increase independence with transfers and mobility. Pt taken into parallel bars, sit to stands performed and standing with focus on increasing static standing balance with UE support, x2, ~1min each stand. Pt attempted to s tand a third time, but unable to pull self up with bars and unable to push off armrests to attain stand. Pt propelled w/c around [facility] common area in order to increase functional mobility and UE strength, then returned to his room. Post tx, pt up in w/c, call light in reach and all needs met. min A stand pivot transfers Education OT Patient Education: Correct positioning, Modified ADL techniques, Progress toward Goal/Update tx plan, Purpose of tx/functional activities, Rehab process Teaching Recipient: Patient Teaching Methods: Discussion Response to Teaching: Verbalize Understanding OT Short Term Goals Short Term Goals Time Frame: Aug 18, 2021 Toileting hygiene: 3 Shower/bathe self: 3 Upper body dressin Lower body dressin Putting on/taking off footwear: 3 OT Special Service Representative Goals Senior Living Goals Time Frame: Sep 03, 2021 Eating (QC): 6 Oral Hygiene (QC): 6 Toileting Hygiene (QC): 6 Shower/Bathe Self (QC): 6 Upper Body Dressing (QC): 6 Lower Body Dressing (QC): 6 On/Off Footwear (QC): 6 Additional Goals: 1-Demonstrate ADL Tasks, 2-Verbalize Understanding, 3- ImproveStrength/Glo 1=Demonstrate adherence to instructed precautions during ADL tasks. 2=Patient will verbalize/demonstrate understanding of assistive devices/modifications for ADL. 3=Patient will improve strength/tolerance for activity to enable patient to perform ADL's. OT Education/Plan Problem List/Assessment Assessment: Decreased Activ Tolerance, Decreased Safety Aware, Decreased UE Strength, Impaired Funct Balance, Impaired I ADL's, Impaired Self-Care Skills Discharge Recommendations Plan/Recommendations: Continue POC Treatment Plan/Plan of Care Patient would benefit from OT for education, treatment and training to promote independence in ADL's, mobility, safety and/or upper extremity function for ADL's. Plan of Care: ADL Retraining, Functional Mobility, Group Exercise/Act as Ind, UE Funct Exercise/Act Treatment Duration: Sep 03, 2021 Frequency: At least 5 of 7 days/Wk (IRF) Estimated Hrs Per Day: 1.5 hours per day Agreement: Yes Rehab Potential: Fair Time/GCodes Start Time: 09:00 Stop Time: 10:15 Total Time Billed (hr/min): 75 Billed Treatment Time cotreat x75' 1, FA 5 ADAM FISHER OT Aug 10, 2021 09:32
--- NOTE | 2021-08-10 10:17 | Physical Therapy Daily Note ---
PT Daily Note-Current Subjective Patient in bed pre tx, agrees to PT, has no complaints of pain. Will be co- treating with OT due to poor patient mobility, strength, endurance, severe debility, coordinate UE and LE with activity, safety and reduce risk of falls. Appearance Patient in WC at bedside post tx with nurse call, phone, tray, all needs met, family in room. Mental Status Patient Orientation: Person, Place, Situation Attachments: PEG Tube Transfers SCALE: Activities may be completed with or without assistive devices. 4-Iwscmymrsy-szovwqb completes the activity by him/herself with no assistance from a helper. 5-Set-up or Clean-up Assistance-helper sets up or cleans up; patient completes activity. [place] assists only prior to or following the activity. 4-Supervision or Touching Assistance-helper provides verbal cues and/or touching/steadying and/or contact guard assistance as patient completes activity. Assistance may be provided throughout the activity or intermittently. 3-Partial/Moderate Assistance-helper does LESS THAN HALF the effort. [place] lifts, holds or supports trunk or limbs, but provides less than half the effort. 2-Substantial/Maximal Assistance-helper does MORE THAN HALF the effort. [place] lifts or holds trunk or limbs and provides more than half the effort. 2-Lptdnuhzp-lrvfve does ALL the effort. Patient does none of the effort to compl ete the activity. Or, the assistance of 2 or more helpers is required for the patient to complete the activity. If activity was not attempted, code reason: 7-Patient Refused. 9-Not Applicable-not attempted and the patient did not perform the activity before the current illness, exacerbation or injury. 10-Not Attempted due to Environmental Limitations-(lack of equipment, weather restraints, etc.). 88-Not Attempted due to Medical Conditions or Safety Concerns. Roll Left & Right (QC): 6 Lying to Sitting/Side of Bed(Q: 4 Sit to Stand (QC): 3 Chair/Fad-yg-Shoud Xfer(QC): 3 Min assist for sit to stand and stand pivot to WC Gait Training Distance: 20'x3 Walk 10 feet (QC): 4 Gait Persons Needed: 1 Gait Assistive Device: FWW WC follow, slow and unsteady ambulation, narrow [place], slightly better at shifting weight forward Wheelchair Training Does the Pt Use a Wheelchair?: Yes Wheel 50 ft with 2 turns (QC): 4 Wheel 150 ft (QC): 4 Type of Wheelchair: Manual 300'x2 Exercises manually resisted leg press 3 sets of 10, standing in parallel bars x2 for about 1 min each time working on balance, attempted to stand a third time but he was too fatigued Treatments PT performed bed mobility and transfers, ambulation, LE strengthening and balance, OT assisted with UE positioning and safety, cues for positioning and balance training Assessment Current Status: Fair Progress slightly better balance but still retropulsive with most mobility PT Short Term Goals Short Term Goals Time Frame: Aug 11, 2021 Roll Left & Right: 6 Sit to lyin Lying to sitting on side of be: 3 Sit to stand: 2 Chair/wmo-ky-fucqi transfer: 3 PT Mcc Goals Mcc Goals PT Stock Mixer Goals Time Frame: Aug 25, 2021 Roll Left & Right (QC): 6 Sit to Lying (QC): 6 Lying-Sitting on Side/Bed(QC): 6 Sit to Stand (QC): 3 Chair/Oht-cp-Whyjp Xfer(QC): 3 Toilet Transfer (QC): 3 Car Transfer (QC): 3 Does the Patient Walk: No and Walking Goal NOT indicated Walk 10 feet (QC): 88 Walk 50ft with 2 Turns (QC): 88 Walk 150 ft (QC): 88 Walking 10ft on Uneven Surface: 88 1 Step (curb) (QC): 88 4 Steps (QC): 88 12 Steps (QC): 88 Picking up an Object (QC): 88 Wheel 50 feet with 2 turns (QC: 6 Wheel 150 feet: 6 PT Plan Problem List Problem List: Activity Tolerance, Functional Strength, Safety, Balance, Gait, Transfer, Bed Mobility, ROM Treatment/Plan Treatment Plan: Continue Plan of Care Treatment Plan: Bed Mobility, Education, Functional Activity Glo, Functional Strength, Group Therapy, Gait, Safety, Therapeutic Exercise, Transfers Treatment Duration: Aug 25, 2021 Frequency: At least 5 of 7 days/Wk (IRF) Estimated Hrs Per Day: 1.5 hours per day Patient and/or Family Agrees t: Yes Safety Risks/Education Patient Education: Gait Training, Transfer Techniques, Correct Positioning, W/C Management, Safety Issues Teaching Recipient: Patient Teaching Methods: Demonstration, Discussion Response to Teaching: Reinforcement Needed Time/GCodes Time In: 0900 Time Out: 1015 Total Billed Treatment Time: 75 Total Billed Treatment 1 visit EX 15' FA 60' co-treated for 75' FLASH ALLEN PT Aug 10, 2021 10:17
--- NOTE | 2021-08-10 11:41 | Consultation - Surgery ---
LONNY DURÁN 08/10/21 1141: History of Present Illness History of Present Illness Patient Consulted On(yair/time) 08/10/21 11:36 Date Seen by Provider: Aug 10, 2021 Time Seen by Provider: 11:00 Reason for Visit: PEG removal History of Present Illness Mr. Boston is a 76 year old male in inpatient rehab here at [facility]. He got COVID pneumonia in March and was treated at [facility] in April. He had a PEG tube placed during his hospitalization in early April. After [facility] he spent time at [facility] in [place] and [facility] in [place]. He experienced 2 codes and had a tracheotomy for around 6 weeks during his time at [facility] and [place]. He has been at [facility] inpatient rehab for about 1 week. He has not used his feeding tube for any feeds for about 3-4 weeks. He says that he has been eating solid foods regularly for the last 3 weeks. He is battling deconditioning s/p COVID pneumonia. He reports that earlier in the week he wasn't able to walk but he is now able to walk with support. He is slowly gaining his strength back. Allergies and Home Medications Allergies Coded Allergies: No Known Drug Allergies (Unverified , 03/11/11) Patient Home Medication List Amiodarone HCl (Amiodarone HCl) 200 Mg Tablet, 200 MG PO DAILY, (Reported) Entered as Reported by: MAYA VIVAS on 08/04/211302 Last Action: Continued Docusate Sodium (Docusate Sodium) 100 Mg Capsule, 100 MG PO BID, (Reported) Entered as Reported by: MAYA VIVAS on 08/04/211302 Last Action: Continued Famotidine (Famotidine) 20 Mg Tablet, 20 MG PO DAILY, (Reported) Entered as Reported by: MAYA VIVAS on 08/04/211302 Last Action: Continued Folic Acid/Vitamin B Comp W-C (Grazyna-Yessy Tablet) 0.8 Mg Tablet, 0.8 MG PO DAILY, (Reported) Entered as Reported by: MAYA VIVAS on 08/04/211302 Last Action: Converted Gabapentin (Gabapentin) 100 Mg Capsule, 100 MG PO Q8H, (Reported) Entered as Reported by: MAYA VIVAS on 08/04/211302 Last Action: Continued Heparin Sodium,Porcine (Heparin Sodium) 5,000 Unit/1 Ml Vial, 5,000 UNIT IJ Q8H, (Reported) Entered as Reported by: MAYA VIVAS on 08/04/211302 Last Action: Continued Lactobacillus Acidophilus/Pect (Acidophilus-Pectin Capsule) 1 Each Capsule, 1 EACH PO BID, (Reported) Entered as Reported by: MAYA VIVAS on 08/04/211302 Last Action: Continued Menthol/Camphor/Dimeth/Phenol (Blistex Medicated Lip Ointment) 6 Gm Oint...g., 1 APPLIC TP EVERY 2 HOURS PRN for DRY LIPS, (Reported) Entered as Reported by: MAYA VIVAS on 08/04/211302 Last Action: Continued Midodrine HCl (Midodrine HCl) 5 Mg Tablet, 5 MG PO Q8H, (Reported) Entered as Reported by: MAYA VIVAS on 08/04/211302 Last Action: Converted Oxycodone HCl/Acetaminophen (Oxycodone-Acetaminophen 5-325) 1 Each Tablet, 1 EACH PO Q6H PRN for PAIN-SEVERE, (Reported) Entered as Reported by: MAYA VIVAS on 08/04/211302 Last Action: Continued Polyethylene Glycol 3350 (Miralax) 17 Gm Powd.pack, 17 GM PO DAILY PRN for CONSTIPATION-2ND LINE, (Reported) Entered as Reported by: MAYA VIVAS on 08/04/211302 Last Action: Continued Discontinued Medications Apixaban (Eliquis) 5 Mg Tablet, 5 MG PO BID Discontinued Reason: No Longer Taking Prescribed by: COTY SIHPMAN on 05/04/211349 Last Action: Discontinued Atorvastatin Calcium (Atorvastatin Calcium) 10 Mg Tablet, 10 MG PO DAILY, (R eported) Discontinued Reason: No Longer Taking Entered as Reported by: MAYA VIVAS on 04/13/21 1314 Last Action: Discontinued Lorazepam (Lorazepam) 2 Mg/1 Ml Vial, 0.5 MG IVP ONCE PRN for ANXIETY Discontinued Reason: No Longer Taking Prescribed by: COTY SHIPMAN on 05/04/211349 Last Action: Discontinued Metoclopramide HCl (Metoclopramide HCl) 5 Mg/1 Ml Vial, 10 MG IVP Q6HR PRN for RESIDUALS Discontinued Reason: No Longer Taking Prescribed by: COTY SHIPMAN on 05/04/21 135 Last Action: Discontinued Propofol (Diprivan) 10 Mg/1 Ml Vial, 10 MG IV UD Discontinued Reason: No Longer Taking Prescribed by: COTY SHIPMAN on 05/04/211349 Last Action: Discontinued Past Chkntox-Yfhrur-Gvsefs Hx Patient Social History Smoking Status: Former Smoker Recent Hopitalizations: No Alcohol Use?: No Have you traveled recently?: No Seasonal Allergies Seasonal Allergies: No Surgeries History of Surgeries: No Respiratory History of Respiratory Disorde: No Cardiovascular History of Cardiac Disorders: No Cardiac Disorders: Atrial Fibrillation, High Cholesterol, Hypertension Neurological History of Neurological Disord: No Reproductive System Hx Reproductive Disorders: No Sexually Transmitted Disease: No Genitourinary History of Genitourinary Disor: No Genitourinary Disorders: Renal Failure Gastrointestinal History of Gastrointestinal Di: No Gastrointestinal Disorders: Gastroesophageal Reflux Musculoskeletal History of Musculoskeletal Dis: Yes Musculoskeletal Disorders: Arthritis Endocrine History of Endocrine Disorders: No Cancer History of Cancer: No Psychosocial History of Psychiatric Problem: No Integumentary History of Skin or Integumenta: No Blood Transfusions History of Blood Disorders: No Review of Systems-General Constitutional: No chills, No fever Respiratory: No cough, No dyspnea on exertion Cardiovascular: No chest pain, No palpitations Gastrointestinal: No abdominal pain, No loss of appetite Musculoskeletal: No back pain, No muscle pain; muscle weakness (Generaly post-COVID deconditioning) Psychiatric/Neurological: Denies Numbness; Paresthesia (Fingers bilaterally) Physical Exam-General Problems Physical Exam Vital Signs Vital Signs - First Documented 08/04/21 13:15 Temp 36.5 Pulse 73 Resp 18 B/P (MAP) 108/73 (85) Pulse Ox 99 O2 Delivery Room Air Capillary Refill : General Appearance: no apparent distress, cachetic, thin HEENT: PERRL/EOMI; No scleral icterus (R), No scleral icterus (L); other (Horizontal nystagmus) Neck: non-tender; No lymphadenopathy (R), No lymphadenopathy (L) Respiratory: chest non-tender, lungs clear, normal breath sounds, no respiratory distress, no accessory muscle use Cardiovascular: normal peripheral pulses, no edema, irregularly irregular Peripheral Pulses: 2+ Dorsalis Pedis (R), 2+ Left Dors-Pedis (L), 2+ Radial Pulses (R), 2+ Radial Pulses (L) Gastrointestinal: normal bowel sounds, non tender, soft; No guarding, No rebound Extremities: non-tender, no pedal edema, no calf tenderness 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 Patient reports he has no used his feeding tube in that time. Plan removal of PEG tube. CARLOS BATES DO 08/10/21 2100: History of Present Illness History of Present Illness History of Present Illness Consult requested by Dr. Shipman for PEG tube removal. Patient is a 76-year-old male known to ms that is currently in inpatient rehab at [facility]. Patient with history of Covid pneumonia and required trach and PEG tube placement. Patient is now after long hospital course is in rehab. He has not required to use his PEG tube for 3 to 4 weeks now. He has no difficulty eating regular foods which she has been doing so on his own. Patient has been regaining his strength slowly. Patient would like to have his gastrostomy tube out at this ti ms. He has no other complaints at this time. Denies nausea vomiting fever sweats chills shortness of breath or chest pain. Patient just extremely weak and trying to get stronger. Allergies and Home Medications Allergies Coded Allergies: No Known Drug Allergies (Unverified , 03/11/11) Patient Home Medication List Home Medication List Reviewed: Yes Amiodarone HCl (Amiodarone HCl) 200 Mg Tablet, 200 MG PO DAILY, (Reported) Entered as Reported by: MAYA VIVAS on 08/04/21 1350 Last Action: Continued Docusate Sodium (Docusate Sodium) 100 Mg Capsule, 100 MG PO BID, (Reported) Entered as Reported by: MAYA VIVAS on 08/04/21 2188 Last Action: Continued Famotidine (Famotidine) 20 Mg Tablet, 20 MG PO DAILY, (Reported) Entered as Reported by: MAYA VIVAS on 08/04/211302 Last Action: Continued Folic Acid/Vitamin B Comp W-C (Grazyna-Yessy Tablet) 0.8 Mg Tablet, 0.8 MG PO DAILY, (Reported) Entered as Reported by: MAYA VIVAS on 08/04/211302 Last Action: Converted Gabapentin (Gabapentin) 100 Mg Capsule, 100 MG PO Q8H, (Reported) Entered as Reported by: MAYA VIVAS on 08/04/211302 Last Action: Continued Heparin Sodium,Porcine (Heparin Sodium) 5,000 Unit/1 Ml Vial, 5,000 UNIT IJ Q8H, (Reported) Entered as Reported by: MAYA VIVAS on 08/04/211302 Last Action: Continued Lactobacillus Acidophilus/Pect (Acidophilus-Pectin Capsule) 1 Each Capsule, 1 EACH PO BID, (Reported) Entered as Reported by: MAYA VIVAS on 08/04/211302 Last Action: Continued Menthol/Camphor/Dimeth/Phenol (Blistex Medicated Lip Ointment) 6 Gm Oint...g., 1 APPLIC TP EVERY 2 HOURS PRN for DRY LIPS, (Reported) Entered as Reported by: MAYA VIVAS on 08/04/211302 Last Action: Continued Midodrine HCl (Midodrine HCl) 5 Mg Tablet, 5 MG PO Q8H, (Reported) Entered as Reported by: MAYA VIVAS on 08/04/211302 Last Action: Converted Oxycodone HCl/Acetaminophen (Oxycodone-Acetaminophen 5-325) 1 Each Tablet, 1 EACH PO Q6H PRN for PAIN-SEVERE, (Reported) Entered as Reported by: MAYA VIVAS on 08/04/211302 Last Action: Continued Polyethylene Glycol 3350 (Miralax) 17 Gm Powd.pack, 17 GM PO DAILY PRN for CONSTIPATION-2ND LINE, (Reported) Entered as Reported by: MAYA VIVAS on 08/04/211302 Last Action: Continued Discontinued Medications Apixaban (Eliquis) 5 Mg Tablet, 5 MG PO BID Discontinued Reason: No Longer Taking Prescribed by: COTY SHIPMAN on 05/04/21 1350 Last Action: Discontinued Atorvastatin Calcium (Atorvastatin Calcium) 10 Mg Tablet, 10 MG PO DAILY, (Reported) Discontinued Reason: No Longer Taking Entered as Reported by: MAYA VIVAS on 04/13/21 1314 Last Action: Discontinued Lorazepam (Lorazepam) 2 Mg/1 Ml Vial, 0.5 MG IVP ONCE PRN for ANXIETY Discontinued Reason: No Longer Taking Prescribed by: COTY SHIPMAN on 05/04/21 135 Last Action: Discontinued Metoclopramide HCl (Metoclopramide HCl) 5 Mg/1 Ml Vial, 10 MG IVP Q6HR PRN for RESIDUALS Discontinued Reason: No Longer Taking Prescribed by: COTY SHIPMAN on 05/04/21 135 Last Action: Discontinued Propofol (Diprivan) 10 Mg/1 Ml Vial, 10 MG IV UD Discontinued Reason: No Longer Taking Prescribed by: COTY SHIPMAN on 05/04/211349 Last Action: Discontinued Past Vcxlcog-Pijmay-Ptoqdv Hx Reviewed Nursing Assessment Reviewed/Agree w Nursing PMH: Yes Family Medical History Significant Family History: No Pertinent Family Hx Review of Systems-General Constitutional: No chills, No fever EENTM: No blurred vision, No double vision Respiratory: No cough, No dyspnea on exertion Cardiovascular: No chest pain, No palpitations Gastrointestinal: No abdominal pain, No loss of appetite Musculoskeletal: No back pain, No muscle pain; muscle weakness (Generaly post- COVID deconditioning) Skin: No change in color, No change in hair/nails Psychiatric/Neurological: Denies Numbness; Paresthesia (Fingers bilaterally) All Other Systems Reviewed Negative Unless Noted: Yes (Negative excepted noted.) Physical Exam-General Problems Physical Exam General Appearance: no apparent distress, cachetic, thin HEENT: PERRL/EOMI, normal ENT inspection Neck: non-tender Respiratory: chest non-tender, no respiratory distress, no accessory muscle use Cardiovascular: no edema, no JVD, irregularly irregular Gastrointestinal: non tender, soft, other (Gastrostomy tube left upper quadrant) Rectal: deferred Back: no CVA tenderness, no vertebral tenderness Extremities: non-tender, no pedal edema, no calf tenderness Neurologic/Psychiatric: alert, normal mood/affect, oriented x 3 Skin: normal color, warm/dry Lymphatic: no adenopathy (Head and neck) Assessment/Plan Assessment/Plan Assessment/Plan Post-COVID syndrome General deconditioning Gastrostomy for nutrition no longer in use Patient has been eating and drinking by himself for the last 3-4 weeks. Patient reports he has no used his feeding tube in that time. Plan removal of gastrostomy tube. Patient understands risk and benefits. Patient wishes to proceed. Patient will need to keep the area clean and dry. He is to expect some leakage from the area which should seal itself in the next 24 to 48 hours. Will sign off, please call if needed. Procedure: removal of gastrostomy tube. The tube was able to be grasped, gentle traction was placed on it until the tube was removed in its entirety. The fistula was then covered with gauze and secured. Patient tolerated well without any complication. Supervisory-Addendum Brief Verification & Attestation Participated in pt care: history, MDM, physical Personally performed: exam, history, MDM, supervision of care Care discussed with: Medical Student Procedures: performed (by me) Results interpretation: Verified all documentation Verification and Attestation of Medical Student E/M Service A medical student performed and documented this service in my presence. I reviewed and verified all information documented by the medical student and made modifications to such information, when appropriate. I personally performed the physical exam and medical decision making. Carlos Bates, Aug 10, 2021,21:01 LONNY DURÁN Aug 10, 2021 11:41 CARLOS BATES DO Aug 10, 2021 21:00
[2021-08-10] MEDS: SENNA W/DOCUSATE (SENOKOT S) TABLET PO SCH ×2 (11:50→20:47)
--- NOTE | 2021-08-10 11:59 | Speech Therapy Daily Note ---
Speech Daily Progress Note Subjective Date Seen by Provider: Aug 10, 2021 Time Seen by Provider: 08:30 The patient was lying in bed, awake and alert upon entrance to his room. The patient greeted the clinician appropriately and was agreeable to participation in the cognitive linguistic treatment session. Objective - Orientation: The patient was oriented to city, hospital, month, day of the week, and year (independently). - Functional Sequencing: The patient, clinician, and RN discussed the process to ordering the patient's own meals. The patient and clinician reviewed the menu as well as the contact information. The patient stated, "I've got to start drinking those things they leave." The clinician discussed the importance of consuming the Ensure/Boost nutritional supplements for increased strengthening and overall improvement. The patient participates in structured conversation with the c linician, remaining on topic and appropriate. * The patient reports difficulty with his vision since his hospitalization. The patient reports difficulty reading small print, such as his magazines. The patient would like his vision assessed when it is able. The clinician will discuss his vision with the team in attempts to provide a solution. Assessment Assessment Current Status: Good Progress Treatment Plan Continue Plan of Care Speech Short Term Goals Short Term Goals Short Term Goals 1. The patient will participate and complete memory exercises with 80% accuracy, independently. 2. The patient will complete functional problem solving tasks with 80% accuracy, independently. Time Frame-STG: Two Weeks Speech [employer] Goals Assisted Goals 1. The patient will demonstrate improved cognitive linguistic function for return and discharge to the least restrictive environment. Time Frame: Three Weeks Speech-Plan Patient/Family Goals Patient/Family Goals: The patient wishes to return home to [facility] with his . Treatment Plan Speech Therapy Treatment Plan: Continue Plan of Care Treatment Duration: Sep 02, 2021 Frequency: 4 times per week (Four to five times per week.) Estimated Hrs Per Day: .5 hour per day Rehab Potential: Fair Barriers to Learning: Fatigue, Fluctuations in Cognition Pt/Family Agrees to Plan: Yes Safety Risks/Education Teaching Recipient: Patient Teaching Methods: Discussion Response to Teaching: Verbalize Understanding Education Topics Provided: Plan of Care, Sequencing Time Speech Therapy Time In: 08:30 Speech Therapy Time Out: 09:00 Total Billed Time: 30 Billed Treatment Time 1[address] [facility] Aug 10, 2021 11:59
[2021-08-10 13:45] VITALS: BP 104/55
[2021-08-10 20:00] VITALS: BP 104/65
[2021-08-10] MEDS: ACETAMINOPHEN 325 MG TABLET PO PRN (20:44)
[2021-08-10] MEDS: AtorvaSTATin TABLET 10 MG TABLET PO SCH (20:44)
[2021-08-11] MEDS: GABAPENTIN 100 MG (NEURONTIN) CAP PO SCH ×4 (00:13→23:51)
[2021-08-11] MEDS: MULTIVIT W/MINERALS TAB (THERAGRAN M) PO SCH (06:49)
[2021-08-11 07:28] VITALS: BP 99/52
[2021-08-11] MEDS: AMIODARONE 200 MG (CORDARONE) TAB PO SCH (08:10)
[2021-08-11] MEDS: FAMOTIDINE 20 MG (PEPCID) TABLET PO SCH (08:10)
[2021-08-11] MEDS: APIXABAN 5 MG (ELIQUIS) TABLET PO SCH ×2 (08:10→20:14)
[2021-08-11] MEDS: LACTOBACILLUS ACIDOPHILUS (PROBIOTIC) CAPSULE PO SCH ×2 (08:10→20:14)
[2021-08-11] MEDS: MIDODRINE 10 MG (PROAMATINE) TAB PO SCH ×3 (08:11→17:22)
[2021-08-11] MEDS: DOCUSATE SODIUM 100 MG (COLACE) CAP PO SCH ×4 (08:14→19:22)
[2021-08-11] MEDS: SENNA W/DOCUSATE (SENOKOT S) TABLET PO SCH ×2 (08:14→19:22)
[2021-08-11] MEDS: polyethylene glycoL POWDER 17 GM (MIRALAX) PACK PO SCH ×2 (08:14→19:22)
--- NOTE | 2021-08-11 10:07 | Speech Therapy Daily Note ---
Speech Daily Progress Note Subjective Date Seen by Provider: Aug 11, 2021 Time Seen by Provider: 08:25 The patient was lying in bed, awake and alert upon entrance. The patient greeted the clinician appropriately and was agreeable to participation in the cognitive linguistic treatment session. The patient reports he rested well and is motivated for another day of therapy. The patient shares concerns regarding his insurance coverage stating, "I only have 27 more days so I will be out in 27 days whether I am better or not." The clinician provided supportive listening and encouragement as the patient shared his anxieties. Objective - Orientation: The patient remains independently oriented to month, year, day of week, date, and location. - Functional Recall/Structured Conversation: The patient responded appropriately to the medical student's and the RN's questions throughout the treatment sessi on. Additionally, the patient recalled the PEG removal procedure. The patient does report his "mom and son" visited the day prior. Per chart review, the patient experienced a visit from his and son. The clinician stated this information and the patient displayed awareness of his error. 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 - "What's Wrong": The patient was provided photographs with images displaying something inaccurate or out of place. The patient was asked to identify the problem in each photograph. The patient displayed 100% accuracy with mild clinician verbal cueing. Assessment Assessment Current Status: Good Progress Treatment Plan Continue Plan of Care Speech Short Term Goals Short Term Goals Short Term Goals 1. The patient will participate and complete memory exercises with 80% accuracy, independently. 2. The patient will complete functional problem solving tasks with 80% accuracy, independently. Time Frame-STG: Two Weeks Speech Mcfp Goals Mcfp Goals 1. The patient will demonstrate improved cognitive linguistic function for return and discharge to the least restrictive environment. Time Frame: Three Weeks Speech-Plan Treatment Plan Speech Therapy Treatment Plan: Continue Plan of Care Treatment Duration: Sep 02, 2021 Frequency: 4 times per week (Four to five times per week.) Estimated Hrs Per Day: .5 hour per day Rehab Potential: Fair Pt/Family Agrees to Plan: Yes Safety Risks/Education Teaching Recipient: Patient Teaching Methods: Discussion Response to Teaching: Verbalize Understanding Education Topics Provided: Plan of Care Meeting Discharge Recommendations Post Acute ST Time Speech Therapy Time In: 08:25 Speech Therapy Time Out: 08:55 Total Billed Time: 30 Billed Treatment Time 1, ELOISE Minor Aug 11, 2021 10:07
--- NOTE | 2021-08-11 10:10 | PM&R Progress Note ---
Subjective HPI/CC On Admission Date Seen by Provider: Aug 11, 2021 Time Seen by Provider: 10:00 Subjective/Events-last exam 08/11/21: Pt is doing very well Bowels moved yesterday TSH checked due to Amiodarone maintenance and it was 60 so I started pt on 50 MCG daily DC the PEG tube yesterday done by Dr. Tracy Peralta will see pt IS ordered Thigh weakness is significant 08/10/21: Pt is doing well Pt appreciates Dr. Zhang seeing him Pt will see Dr. Molina to remove PEG tube placed on 04/30/21 Clearer thoughts but thought his was his mother Pt is getting protein shakes since he lost 60 lbs through Covid 08/09/21: Pt doing really well today. EKG shows Atrial Flutter Low bp at 87/54 no symptoms though Amiodarone ordered Dr. Zhang will evaluate EKG Creatine 1.53 No dysphasia 08/08/21: Patient doing well Changing diet to regular Trach residual causes no issues with swallowing BM+ 08/07/2021: Patient doing really well Stood with the help of the parallel bars Checked meds and labs No pain is reported 08/06/2021: Patient doing pretty well No significant issues Short-term recall may be altered Checked meds and labs 08/05/2021: Pt doing really well Hgb 9.6 Creatinine is baseline at 1.54 Had a large BM last night Overall doing well Review of Systems General: Fatigue, Malaise Objective Exam Vital Signs Vital Signs Date Time Temp Pulse Resp B/P (MAP) Pulse Ox O2 Delivery O2 Flow Rate FiO2 08/11/21 20:20 Room Air 08/11/21 20:00 36.9 71 16 100/55 (70) 98 Capillary Refill : General Appearance: No Apparent Distress, WD/WN, Chronically ill, Thin HEENT: PERRL/EOMI, Normal ENT Inspection, Pharynx Normal Neck: Full Range of Motion, Normal Inspection, Non Tender, Supple, Carotid Bruit Respiratory: Chest Non Tender, Lungs Clear, Normal Breath Sounds, No Accessory Muscle Use, No Respiratory Distress Cardiovascular: Regular Rate, Rhythm, No Edema, No Gallop, No JVD, No Murmur, Normal Peripheral Pulses Gastrointestinal: Normal Bowel Sounds, No Organomegaly, No Pulsatile Mass, Non Tender, Soft Back: Normal Inspection, No CVA Tenderness, No Vertebral Tenderness Extremity: Normal Capillary Refill, Normal Inspection, Normal Range of Motion, Non Tender, No Calf Tenderness, No Pedal Edema Neurologic/Psychiatric: Alert, Oriented x3, No Motor/Sensory Deficits, Normal Mood/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 FIM Transfers Therapy Code Descriptions/Definitions Functional [place] Measure: 0=Not Assessed/NA 4=Minimal Assistance 1=Total Assistance 5=Supervision or Setup 2=Maximal Assistance 6=Modified [place] 3=Moderate Assistance 7=Complete IndependenceSCALE: Activities may be completed with or without assistive devices. 7-Ffxildylox-sfvoyls completes the activity by him/herself with no assistance from a helper. 5-Set-up or Clean-up Assistance-helper sets up or cleans up; patient completes activity. [place] assists only prior to or following the activity. 4-Supervision or Touching Assistance-helper provides verbal cues and/or touching/steadying and/or contact guard assistance as patient completes activity. Assistance may be provided throughout the activity or intermittently. 3-Partial/Moderate Assistance-helper does LESS THAN HALF the effort. [place] lifts, holds or supports trunk or limbs, but provides less than half the effort. 2-Substantial/Maximal Assistance-helper does MORE THAN HALF the effort. [place] lifts or holds trunk or limbs and provides more than half the effort. 5-Dmlhaojyf-wjylmi does ALL the effort. Patient does none of the effort to complete the activity. Or, the assistance of 2 or more helpers is required for the patient to complete the activity. If activity was not attempted, code reason: 7-Patient Refused. 9-Not Applicable-not attempted and the patient did not perform the activity before the current illness, exacerbation or injury. 10-Not Attempted due to Environmental Limitations-(lack of equipment, weather restraints, etc.). 88-Not Attempted due to Medical Conditions or Safety Concerns. Roll Left to Right (QC): 6 Sit to Lying (QC): 3 Sit to Stand (QC): 3 Chair/Zlx-cc-Oybzg Xfer(QC): 3 Car Transfer (QC): 1 Gait Training Does the Patient Walk?: Yes Distance: 20'x3 Walk 10 feet (QC): 4 Walk 50 ft with 2 Turns(QC): 88 Walk 150 ft (QC): 88 Walking 10ft/uneven surface-QC: 88 Gait Persons Needed: 1 Gait Assistive Device: FWW Wheelchair Training Does the Pt Use a Wheelchair?: Yes Wheel 50 ft with 2 turns (QC): 4 Wheel 150 ft (QC): 4 Type of Wheelchair: Manual Stair Training 1 Step (curb) (QC): 88 4 Steps (QC): 88 12 Steps (QC): 88 Balance Picking up an Object (QC): 88 ADL-Treatment Eating (QC): 6 (Per pt report, IND with lunch. ) Oral Hygiene (QC): 5 (per clincial judgment, set up with task.) Shower/Bathe Self (QC): 3 (Pt able to wash BUEs, chest/abdomen, periarea, thighs. Assistance provided to wash feet and buttocks.) Upper Body Dressing (QC): 3 (Pt able to thread UEs into shirt, min A overhead.) Lower Body Dressing (QC): 1 (assist x2 in stand required, assistance with all parts.) On/Off Footwear (QC): 3 (Min A with donning/doffing gripper socks after education on AE.) Toileting Hygiene (QC): 1 (sit to stand lift for clothing managment and hygiene.) Assessment/Plan Assessment and Plan Assess & Plan/Chief Complaint Assessment: Critical illness myopathy COVID-19 pneumonia April 2021 Status post ventilator dependence Atrial fibrillation during intubation Cardiac arrest x2 Previous smoker Weight loss New onset hypothyroidism TSH 60 so 50mcg started on 50mcg on 08/11/21 Plan: Inpatient rehab protocol Pain control Cardiology consult 08/05/2021: Supportive care Aggressive rehab Cardiology consult 08/06/2021: Supportive care Monitor blood pressure 08/07/2021: Intensive rehab Cardiology appreciated 08/08/21: Intensive rehab Reg diet 08/09/21: Supportive care Reg diet tolerated 08/10/21: Monitor weight loss Increase aggressive rehab 08/11/21: Thyroid supplement (1) Chronic hypotension Assessment & Plan: Most likely related to profound weight loss ever since he was admitted to the hospital in April with Covid infection. He had been placed on midodrine in an outside facility. I had been attempting to wean this off. Due to low blood pressure this morning, I have put this back to 5 mg 3 times daily. I encouraged him to drink plenty of fluids. He did not appear to have symptoms with the low blood pressure this morning. (2) Typical atrial flutter Assessment & Plan: His electrocardiograms on 08/05 and 08/07 showed atrial flutter with 4-1 AV block. I will continue amiodarone and apixaban. I do not see any urgent need for cardioversion. I may consider cardioversion after dis charge. (3) Persistent atrial fibrillation Assessment & Plan: He had atrial fibrillation during his previous hospitalization in our hospital 4 months ago. He he is now in atrial flutter as above. I suspect he goes back and forth from atrial flutter and atrial fibrillation. We will proceed as above. (4) Mixed hyperlipidemia Assessment & Plan: He has a history of hyperlipidemia and was taking atorvastatin at home. Somewhere along the line during his prolonged hospitalization, the atorvastatin was discontinued. I restarted his atorvastatin. (5) History of deep venous thrombosis Assessment & Plan: He had deep venous thrombosis when he was in an outside hospital. An inferior vena cava filter was placed at that time for unclear reasons. He Is back on oral anticoagulation. I ordered an ultrasound in our hospital that did not show any evidence of deep venous thrombosis. Once he is discharged home, we can arrange to have the filter removed. I do not believe we have anyone in this hospital who can perform this procedure. (6) Presence of inferior vena cava filter Assessment & Plan: As above, once he is discharged from our hospital, we can see about making arrangements to have the filter removed. (7) Stage 3 chronic kidney disease Assessment & Plan: This will need to be followed longitudinally. There is no indication to adjust the dose of apixaban based on his renal function. COTY SHIPMAN DO Aug 11, 2021 10:10
--- NOTE | 2021-08-11 10:20 | Physical Therapy Daily Note ---
PT Daily Note-Current Subjective Pt. up at edge of bed with OT. Agrees to Rx . Shares his work history etc. pleasant. Pain Location: No Pain Reported Mental Status Patient Orientation: Normal For Age Transfers SCALE: Activities may be completed with or without assistive devices. 7-Yfppyabdqs-ysktnur completes the activity by him/herself with no assistance from a helper. 5-Set-up or Clean-up Assistance-helper sets up or cleans up; patient completes activity. [place] assists only prior to or following the activity. 4-Supervision or Touching Assistance-helper provides verbal cues and/or touching/steadying and/or contact guard assistance as patient completes activity. Assistance may be provided throughout the activity or intermittently. 3-Partial/Moderate Assistance-helper does LESS THAN HALF the effort. [place] lifts, holds or supports trunk or limbs, but provides less than half the effort. 2-Substantial/Maximal Assistance-helper does MORE THAN HALF the effort. [place] lifts or holds trunk or limbs and provides more than half the effort. 0-Caeaxqnaw-xbmmti does ALL the effort. Patient does none of the effort to complete the activity. Or, the assistance of 2 or more helpers is required for the patient to complete the activity. If activity was not attempted, code reason: 7-Patient Refused. 9-Not Applicable-not attempted and the patient did not perform the activity before the current illness, exacerbation or injury. 10-Not Attempted due to Environmental Limitations-(lack of equipment, weather restraints, etc.). 88-Not Attempted due to Medical Conditions or Safety Concerns. Sit to Stand (QC): 4 (*see below) Chair/Gui-ws-Dbzem Xfer(QC): 4 much emphasis on sit to stand this date, 4 trials at mod assist, 6 trials at min to CGA with much emphasis on wt shift etc. improved in this skill. Gait Training Does the Patient Walk?: Yes Walk 10 feet (QC): 4 Gait Persons Needed: 1 Gait Assistive Device: FWW 20ft x2 15 ft x1, FWW, min to CGA with FWW close behind, tactile and verbal cues for wt shift and alignment, OT and PT coordinating UE and LE funct mob for TRF and gait Wheelchair Training Does the Pt Use a Wheelchair?: Yes Wheel 50 ft with 2 turns (QC): 4 Wheel 150 ft (QC): 4 Type of Wheelchair: Manual needs assist to brake, educated in use of LEs reciprocally to propel wc as well as UEs Exercises Seated Therapy Exercises: Sit to stand, Long arc quads Seated Reps: 20 NuStep Minutes: 10 NuStep Workload: 1 Treatments PT OT co Rx secondary to poor pt. strength, poor balance, poor endurance for increased safety and coordination of 2 skilled clinicians needed for U&L extremity funct mob . TRFs, wc mob, gait , sit to stands, etc. Pts. shoes were donned today which enhanced his stability in sit to stand and gait Assessment Current Status: Good Progress progressing well, improve sit to stand and alignment today, gives full effort PT Short Term Goals Short Term Goals Time Frame: Aug 11, 2021 Roll Left & Right: 6 Sit to lyin Lying to sitting on side of be: 3 Sit to stand: 2 Chair/kwd-xn-uneyr transfer: 3 PT Professional Wrestler Goals Residential Goals PT Professional Wrestler Goals Time Frame: Aug 25, 2021 Roll Left & Right (QC): 6 Sit to Lying (QC): 6 Lying-Sitting on Side/Bed(QC): 6 Sit to Stand (QC): 3 Chair/Mnh-si-Tzzxm Xfer(QC): 3 Toilet Transfer (QC): 3 Car Transfer (QC): 3 Does the Patient Walk: No and Walking Goal NOT indicated Walk 10 feet (QC): 88 Walk 50ft with 2 Turns (QC): 88 Walk 150 ft (QC): 88 Walking 10ft on Uneven Surface: 88 1 Step (curb) (QC): 88 4 Steps (QC): 88 12 Steps (QC): 88 Picking up an Object (QC): 88 Wheel 50 feet with 2 turns (QC: 6 Wheel 150 feet: 6 PT Plan Treatment/Plan Treatment Plan: Continue Plan of Care Treatment Plan: Bed Mobility, Education, Functional Activity Glo, Functional Strength, Group Therapy, Gait, Safety, Therapeutic Exercise, Transfers Treatment Duration: Aug 25, 2021 Frequency: At least 5 of 7 days/Wk (IRF) Estimated Hrs Per Day: 1.5 hours per day Patient and/or Family Agrees t: Yes Safety Risks/Education Patient Education: Gait Training, Transfer Techniques, Correct Positioning, W/C Management, Disease Process, Safety Issues Teaching Recipient: Patient Teaching Methods: Demonstration, Discussion Response to Teaching: Verbalize Understanding, Return Demonstration, Reinforcement Needed Time/GCodes Time In: 910 Time Out: 1015 Total Billed Treatment Time: 65 Total Billed Treatment 1,GT15m,WC15m,EX20m,FA15m (65m co Rx) AHMET FRANCISCO TELEX OPERATOR Aug 11, 2021 10:19
--- NOTE | 2021-08-11 10:30 | Occupational Ther Daily Note ---
OT Current Status-Daily Note Subjective Pt supine in bed. Pt agreeable to OT tx. Mental Status/Objective Patient Orientation: Person, Place, Time, Situation Attachments: PEG Tube ADL-Treatment Therapy Code Descriptions/Definitions Functional [place] Measure: 0=Not Assessed/NA 4=Minimal Assistance 1=Total Assistance 5=Supervision or Setup 2=Maximal Assistance 6=Modified [place] 3=Moderate Assistance 7=Complete IndependenceSCALE: Activities may be completed with or without assistive devices. 0-Uvndumkbzf-tqtfsjs completes the activity by him/herself with no assistance from a helper. 5-Set-up or Clean-up Assistance-helper sets up or cleans up; patient completes activity. [place] assists only prior to or following the activity. 4-Supervision or Touching Assistance-helper provides verbal cues and/or to uching/steadying and/or contact guard assistance as patient completes activity. Assistance may be provided throughout the activity or intermittently. 3-Partial/Moderate Assistance-helper does LESS THAN HALF the effort. [place] lifts, holds or supports trunk or limbs, but provides less than half the effort. 2-Substantial/Maximal Assistance-helper does MORE THAN HALF the effort. [place] lifts or holds trunk or limbs and provides more than half the effort. 2-Rsykrazpw-blodpx does ALL the effort. Patient does none of the effort to complete the activity. Or, the assistance of 2 or more helpers is required for the patient to complete the activity. If activity was not attempted, code reason: 7-Patient Refused. 9-Not Applicable-not attempted and the patient did not perform the activity before the current illness, exacerbation or injury. 10-Not Attempted due to Environmental Limitations-(lack of equipment, weather restraints, etc.). 88-Not Attempted due to Medical Conditions or Safety Concerns. On/Off Footwear: 1 (total assist with tennis shoes) Other Treatment OT/PT cotreat due to skill of 2 clinicians required which a vocational rehabilitation supervisor could not perform in order to coordinate UE/LEs, decrease fall risk, and due to pt's limitations in strength, activity tolerance, mobility, transfers and balance. OT focused on UE placement, cues for sequencing and safety, and ADLs, PT focused on LE placement, gross overall movement, transfers/mobility. Pt supine to EOB independently, transitioned FWW to W/C. Pt required total assist to don tennis shoes. Pt propelled W/C down to the windows on 2nd floor and half way back to the therapy gym, then was taken to therapy gym. OT focused on UE placement when reaching for W/C to sit/stand and safety, PT focused on gross overall movement and LE placement. Pt stood at grab bars from W/C, shifting weight on BLE x2. Pt propelled W/C to end of therapy gym, completed arm push ups on W/C while performing sit to stands. Pt worked on AROM arm exercises but wasn't able to flex LUE overhead (~80 degrees shoulder flexion), he switched/completed arm pulleys, 5 mins, no rest break. Pt transitioned from W/C to FWW, ambulated to nustep machine to work on reciprocating movements in preparation for ambulation as well as increase activity tolerance and UE strength, 8 minutes. Pt performed leg presses x10 on nustep in order to increase independence with transfers and mobility. Pt propelled W/C back to room. Pt in W/C, call light in reach and all needs met. 4 sit to stands mod A, 6 sit to stands min-CGA. Min-CGA functional mobility using FWW with w/c follow. Pt required verbal cues for weight shifting and UE/LE placement with transfers. Education OT Patient Education: Correct positioning, Energy conservation, Exercise program, Modified ADL techniques, Progress toward Goal/Update tx plan, Purpose of tx/functional activities, Rehab process Teaching Recipient: Patient Teaching Methods: Demonstration, Discussion Response to Teaching: Verbalize Understanding, Return Demonstration, Reinforcement Needed OT Short Term Goals Short Term Goals Time Frame: Aug 18, 2021 Toileting hygiene: 3 Shower/bathe self: 3 Upper body dressin Lower body dressin Putting on/taking off footwear: 3 OT Correction Goals Business Intern Goals Time Frame: Sep 03, 2021 Eating (QC): 6 Oral Hygiene (QC): 6 Toileting Hygiene (QC): 6 Shower/Bathe Self (QC): 6 Upper Body Dressing (QC): 6 Lower Body Dressing (QC): 6 On/Off Footwear (QC): 6 Additional Goals: 1-Demonstrate ADL Tasks, 2-Verbalize Understanding, 3- ImproveStrength/Glo 1=Demonstrate adherence to instructed precautions during ADL tasks. 2=Patient will verbalize/demonstrate understanding of assistive devices/ modifications for ADL. 3=Patient will improve strength/tolerance for activity to enable patient to perform ADL's. OT Education/Plan Problem List/Assessment Assessment: Decreased Activ Tolerance, Decreased Safety Aware, Decreased UE Strength, Impaired Coordination, Impaired Funct Balance, Impaired I ADL's, Impaired Self-Care Skills Discharge Recommendations Plan/Recommendations: Continue POC Treatment Plan/Plan of Care Patient would benefit from OT for education, treatment and training to promote independence in ADL's, mobility, safety and/or upper extremity function for ADL's. Plan of Care: ADL Retraining, Functional Mobility, Group Exercise/Act as Ind, UE Funct Exercise/Act Treatment Duration: Sep 03, 2021 Frequency: At least 5 of 7 days/Wk (IRF) Estimated Hrs Per Day: 1.5 hours per day Agreement: Yes Rehab Potential: Fair Time/GCodes Start Time: 09:00 Stop Time: 10:15 Total Time Billed (hr/min): 75 Billed Treatment Time cotreat x65', OT tx x10' 1, EX (15), FA 4 (60) ADAM FISHER OT Aug 11, 2021 10:30
--- NOTE | 2021-08-11 11:03 | Cardiology Progress Note ---
Progress Note-Cardiology Events since last exam Date Seen by Provider: Aug 11, 2021 Time Seen by Provider: 11:01 Events since last exam I am following him due to atrial fibrillation and flutter. He feels like he is gradually getting stronger. He does have some dyspnea with physical therapy. He denies chest discomfort, palpitations, syncope, or ankle edema. Certain portions of this document may have been dictated utilizing voice recognition technology. Inherent to this technology, typographical and grammatical errors may exist. As much as I am diligent to identify and correct these mistakes, some errors may remain in the document. Vitals Last set of Vitals Signs Vital Signs 08/11/21 08/11/21 07:28 08:15 Temp 36.6 Pulse 72 Resp 14 B/P (MAP) 99/52 (68) Pulse Ox 95 O2 Delivery Room Air Exam Vital Signs Vital Signs Date Time Temp Pulse Resp B/P (MAP) Pulse Ox O2 Delivery O2 Flow Rate FiO2 08/11/21 08:15 Room Air 08/11/21 07:28 36.6 72 14 99/52 (68) 95 Physical Exam General: Alert. No acute distress. He is cachectic and appears chronically ill. Eye: No xanthelasma. HENT: Normocephalic. Neck: Jugular venous pressure does not appear elevated. Respiratory: Lungs are clear to auscultation. Respirations are non-labored. Breath sounds are equal. Symmetrical chest wall expansion. Cardiovascular: Normal rate. Regular rhythm. No murmur. No gallop. No edema. Gastrointestinal: Soft. Normal bowel sounds. Skin: Warm. Dry. Multiple areas of ecchymoses on his arms and legs. Neurologic: Alert and oriented to person, place, time. Cranial nerves 3-11 grossly intact. Psychiatric: Cooperative. Appropriate mood & affect. Labs Laboratory Tests Test 08/11/21 11:05 Range/Units Thyroid Stimulating Hormone (TSH) 60.98 H 0.35-4.94 UIU/ML Diagnosis/Problems Diagnosis/Problems (1) Chronic hypotension Assessment & Plan: Most likely related to profound weight loss ever since he was admitted to the hospital in April with Covid infection. He had been placed on midodrine in an outside facility. I had been attempting to wean this off. Due to low blood pressure which occurred when I change this to twice daily, I put this back to 3 times daily. He has now been found to have hypothyroidism. This could also be contributing to the hypotension. The primary provider will be starting him on thyroid medication. (2) Typical atrial flutter Assessment & Plan: His electrocardiograms on 08/05 and 08/07 showed atrial flutter with 4-1 AV block. I will continue amiodarone and apixaban. I do not see any urgent need for cardioversion. I may consider cardioversion after discharge. (3) Persistent atrial fibrillation Assessment & Plan: He had atrial fibrillation during his previous hospitalization in our hospital 4 months ago. He he is now in atrial flutter as above. I suspect he goes back and forth from atrial flutter and atrial fibrillation. We will proceed as above. (4) Mixed hyperlipidemia Assessment & Plan: He has a history of hyperlipidemia and was taking atorvastatin at home. Somewhere along the line during his prolonged hospitalization, the atorvastatin was discontinued. I restarted his atorvastatin. (5) History of deep venous thrombosis Assessment & Plan: He had deep venous thrombosis when he was in an outside hospital. An inferior vena cava filter was placed at that time for unclear reasons. He Is back on oral anticoagulation. I ordered an ultrasound in our hospital that did not show any evidence of deep venous thrombosis. Once he is discharged home, we can arrange to have the filter removed. I do not believe we have anyone in this hospital who can perform this procedure. (6) Presence of inferior vena cava filter Assessment & Plan: As above, once he is discharged from our hospital, we can see about making arrangements to have the filter removed. (7) Stage 3 chronic kidney disease Assessment & Plan: This will need to be followed longitudinally. There is no indication to adjust the dose of apixaban based on his renal function. MARTÍNEZ LEMON JR, MD Aug 11, 2021 11:03
[2021-08-11] MEDS ORDERED: LEVOTHYROXINE 50 MCG (LEVOTHROID) TAB PO NR (12:16)
[2021-08-11] MEDS ORDERED: COVID-19 VACC, MRNA(PFIZER)/PF 30 MCG/0.3 ML VIAL IM ONE (13:00)
[2021-08-11 20:00] VITALS: BP 100/55
[2021-08-11] MEDS: AtorvaSTATin TABLET 10 MG TABLET PO SCH (20:14)
[2021-08-12] MEDS: LEVOTHYROXINE 50 MCG (LEVOTHROID) TAB PO SCH (06:03)
[2021-08-12] MEDS: MULTIVIT W/MINERALS TAB (THERAGRAN M) PO SCH (06:03)
--- NOTE | 2021-08-12 06:49 | PM&R Progress Note ---
Subjective HPI/CC On Admission Date Seen by Provider: Aug 12, 2021 Time Seen by Provider: 09:30 Subjective/Events-last exam 08/12/21: Pt is doing a lot better Thyroid medication discussed Pt in a good mood COVID vaccine will be given Blood pressure remains low 08/11/21: Pt is doing very well Bowels moved yesterday TSH checked due to Amiodarone maintenance and it was 60 so I started pt on 50 MCG daily DC the PEG tube yesterday done by Dr. Tracy Peralta will see pt IS ordered Thigh weakness is significant 08/10/21: Pt is doing well Pt appreciates Dr. Zhang seeing him Pt will see Dr. Molina to remove PEG tube placed on 04/30/21 Clearer thoughts but thought his was his mother Pt is getting protein shakes since he lost 60 lbs through Covid 08/09/21: Pt doing really well today. EKG shows Atrial Flutter Low bp at 87/54 no symptoms though Amiodarone ordered Dr. Zhang will evaluate EKG Creatine 1.53 No dysphasia 08/08/21: Patient doing well Changing diet to regular Trach residual causes no issues with swallowing BM+ 08/07/2021: Patient doing really well Stood with the help of the parallel bars Checked meds and labs No pain is reported 08/06/2021: Patient doing pretty well No significant issues Short-term recall may be altered Checked meds and labs 08/05/2021: Pt doing really well Hgb 9.6 Creatinine is baseline at 1.54 Had a large BM last night Overall doing well Review of Systems General: Fatigue, Malaise Musculoskeletal: leg pain Objective Exam Vital Signs Vital Signs Date Time Temp Pulse Resp B/P (MAP) Pulse Ox O2 Delivery O2 Flow Rate FiO2 08/12/21 20:01 36.4 69 16 112/69 (83) 98 Room Air Capillary Refill : General Appearance: No Apparent Distress, WD/WN, Chronically ill, Thin HEENT: PERRL/EOMI, Normal ENT Inspection, Pharynx Normal Neck: Full Range of Motion, Normal Inspection, Non Tender, Supple, Carotid Bruit Respiratory: Chest Non Tender, Lungs Clear, Normal Breath Sounds, No Accessory Muscle Use, No Respiratory Distress Cardiovascular: Regular Rate, Rhythm, No Edema, No Gallop, No JVD, No Murmur, Normal Peripheral Pulses Gastrointestinal: Normal Bowel Sounds, No Organomegaly, No Pulsatile Mass, Non Tender, Soft Back: Normal Inspection, No CVA Tenderness, No Vertebral Tenderness Extremity: Normal Capillary Refill, Normal Inspection, Normal Range of Motion, Non Tender, No Calf Tenderness, No Pedal Edema Neurologic/Psychiatric: Alert, Oriented x3, No Motor/Sensory Deficits, Normal Mood/Affect, mill oiler II-XII Norm as Tested, Motor Weakness (Severe muscle weakness upper and lower extremities) Skin: Normal Color, Warm/Dry Lymphatic: No Adenopathy Results/Procedures Lab Patient resulted labs reviewed. FIM Transfers Therapy Code Descriptions/Definitions Functional [place] Measure: 0=Not Assessed/NA 4=Minimal Assistance 1=Total Assistance 5=Supervision or Setup 2=Maximal Assistance 6=Modified [place] 3=Moderate Assistance 7=Complete IndependenceSCALE: Activities may be completed with or without assistive devices. 3-Gvnebwvlol-ltldrrc completes the activity by him/herself with no assistance from a helper. 5-Set-up or Clean-up Assistance-helper sets up or cleans up; patient completes activity. [place] assists only prior to or following the activity. 4-Supervision or Touching Assistance-helper provides verbal cues and/or touching/steadying and/or contact guard assistance as patient completes activity. Assistance may be provided throughout the activity or intermittently. 3-Partial/Moderate Assistance-helper does LESS THAN HALF the effort. [place] lifts, holds or supports trunk or limbs, but provides less than half the effort. 2-Substantial/Maximal Assistance-helper does MORE THAN HALF the effort. [place] lifts or holds trunk or limbs and provides more than half the effort. 8-Drptkwrfn-rskpwb does ALL the effort. Patient does none of the effort to complete the activity. Or, the assistance of 2 or more helpers is required for the patient to complete the activity. If activity was not attempted, code reason: 7-Patient Refused. 9-Not Applicable-not attempted and the patient did not perform the activity before the current illness, exacerbation or injury. 10-Not Attempted due to Environmental Limitations-(lack of equipment, weather restraints, etc.). 88-Not Attempted due to Medical Conditions or Safety Concerns. Roll Left to Right (QC): 6 Sit to Lying (QC): 3 Sit to Stand (QC): 4 (*see below) Chair/Wii-xg-Djkna Xfer(QC): 4 Car Transfer (QC): 1 Gait Training Does the Patient Walk?: Yes Distance: 20'x3 Walk 10 feet (QC): 4 Walk 50 ft with 2 Turns(QC): 88 Walk 150 ft (QC): 88 Walking 10ft/uneven surface-QC: 88 Gait Persons Needed: 1 Gait Assistive Device: FWW Wheelchair Training Does the Pt Use a Wheelchair?: Yes Wheel 50 ft with 2 turns (QC): 4 Wheel 150 ft (QC): 4 Type of Wheelchair: Manual Stair Training 1 Step (curb) (QC): 88 4 Steps (QC): 88 12 Steps (QC): 88 Balance Picking up an Object (QC): 88 ADL-Treatment Eating (QC): 6 (Per pt report, IND with lunch. ) Oral Hygiene (QC): 5 (per clincial judgment, set up with task.) Shower/Bathe Self (QC): 3 (Pt able to wash BUEs, chest/abdomen, periarea, thighs. Assistance provided to wash feet and buttocks.) Upper Body Dressing (QC): 3 (Pt able to thread UEs into shirt, min A overhead.) Lower Body Dressing (QC): 1 (assist x2 in stand required, assistance with all parts.) On/Off Footwear (QC): 1 (total assist with tennis shoes) Toileting Hygiene (QC): 1 (sit to stand lift for clothing managment and hygiene.) Assessment/Plan Assessment and Plan Assess & Plan/Chief Complaint Assessment: Critical illness myopathy COVID-19 pneumonia April 2021 Status post ventilator dependence Atrial fibrillation during intubation Cardiac arrest x2 Previous smoker Weight loss New onset hypothyroidism TSH 60 so 50mcg started on 50mcg on 08/11/21 Plan: Inpatient rehab protocol Pain control Cardiology consult 08/05/2021: Supportive care Aggressive rehab Cardiology consult 08/06/2021: Supportive care Monitor blood pressure 08/07/2021: Intensive rehab Cardiology appreciated 08/08/21: Intensive rehab Reg diet 08/09/21: Supportive care Reg diet tolerated 08/10/21: Monitor weight loss Increase aggressive rehab 08/11/21: Thyroid supplement 08/12/21: Continue current care Aggressive rehab required (1) Chronic hypotension Assessment & Plan: Most likely related to profound weight loss ever since he was admitted to the hospital in April with Covid infection. He had been placed on midodrine in an outside facility. I had been attempting to wean this off. Due to low blood pressure which occurred when I change this to twice daily, I put this back to 3 times daily. He has now been found to have hypothyroidism. This could also be contributing to the hypotension. The primary provider will be starting him on thyroid medication. (2) Typical atrial flutter Assessment & Plan: His electrocardiograms on 08/05 and 08/07 showed atrial flutter with 4-1 AV block. I will continue amiodarone and apixaban. I do not see any urgent need for cardioversion. I may consider cardioversion after discharge. (3) Persistent atrial fibrillation Assessment & Plan: He had atrial fibrillation during his previous hospitalization in our hospital 4 months ago. He he is now in atrial flutter as above. I suspect he goes back and forth from atrial flutter and atrial fibrillation. We will proceed as above. (4) Mixed hyperlipidemia Assessment & Plan: He has a history of hyperlipidemia and was taking atorvastatin at home. Somewhere along the line during his prolonged hospitalization, the atorvastatin was discontinued. I restarted his atorv astatin. (5) History of deep venous thrombosis Assessment & Plan: He had deep venous thrombosis when he was in an outside hospital. An inferior vena cava filter was placed at that time for unclear reasons. He Is back on oral anticoagulation. I ordered an ultrasound in our hospital that did not show any evidence of deep venous thrombosis. Once he is discharged home, we can arrange to have the filter removed. I do not believe we have anyone in this hospital who can perform this procedure. (6) Presence of inferior vena cava filter Assessment & Plan: As above, once he is discharged from our hospital, we can see about making arrangements to have the filter removed. (7) Stage 3 chronic kidney disease Assessment & Plan: This will need to be followed longitudinally. There is no indication to adjust the dose of apixaban based on his renal function. COTY SHIPMAN DO Aug 12, 2021 06:49
[2021-08-12 07:28] VITALS: BP 90/57
[2021-08-12] MEDS: DOCUSATE SODIUM 100 MG (COLACE) CAP PO SCH ×4 (07:52→19:06)
[2021-08-12] MEDS: polyethylene glycoL POWDER 17 GM (MIRALAX) PACK PO SCH ×2 (07:53→19:06)
[2021-08-12] MEDS: SENNA W/DOCUSATE (SENOKOT S) TABLET PO SCH ×2 (07:53→19:06)
[2021-08-12] MEDS: LACTOBACILLUS ACIDOPHILUS (PROBIOTIC) CAPSULE PO SCH ×2 (08:21→19:51)
[2021-08-12] MEDS: FAMOTIDINE 20 MG (PEPCID) TABLET PO SCH (08:21)
[2021-08-12] MEDS: GABAPENTIN 100 MG (NEURONTIN) CAP PO SCH ×3 (08:21→23:59)
[2021-08-12] MEDS: MIDODRINE 10 MG (PROAMATINE) TAB PO SCH ×3 (08:21→17:29)
[2021-08-12] MEDS: APIXABAN 5 MG (ELIQUIS) TABLET PO SCH ×2 (08:21→19:51)
[2021-08-12] MEDS: AMIODARONE 200 MG (CORDARONE) TAB PO SCH (08:22)
--- NOTE | 2021-08-12 10:11 | Occupational Ther Daily Note ---
OT Current Status-Daily Note Subjective Pt supine in bed. Pt agreeable to OT tx. Mental Status/Objective Patient Orientation: Person, Place, Time, Situation ADL-Treatment Therapy Code Descriptions/Definitions Functional [place] Measure: 0=Not Assessed/NA 4=Minimal Assistance 1=Total Assistance 5=Supervision or Setup 2=Maximal Assistance 6=Modified [place] 3=Moderate Assistance 7=Complete IndependenceSCALE: Activities may be completed with or without assistive devices. 8-Qekyqgrbtj-eessodm completes the activity by him/herself with no assistance from a helper. 5-Set-up or Clean-up Assistance-helper sets up or cleans up; patient completes activity. [place] assists only prior to or following the activity. 4-Supervision or Touching Assistance-helper provides verbal cues and/or touching/steadying and/or contact guard assistance as patient completes activity. Assistance may be provided throughout the activity or intermittently. 3-Partial/Moderate Assistance-helper does LESS THAN HALF the effort. [place] lifts, holds or supports trunk or limbs, but provides less than half the effort. 2-Substantial/Maximal Assistance-helper does MORE THAN HALF the effort. [place] lifts or holds trunk or limbs and provides more than half the effort. 0-Ebfpsvdvd-nupsph does ALL the effort. Patient does none of the effort to complete the activity. Or, the assistance of 2 or more helpers is required for the patient to complete the activity. If activity was not attempted, code reason: 7-Patient Refused. 9-Not Applicable-not attempted and the patient did not perform the activity before the current illness, exacerbation or injury. 10-Not Attempted due to Environmental Limitations-(lack of equipment, weather restraints, etc.). 88-Not Attempted due to Medical Conditions or Safety Concerns. Bathing Location: L Arm, R Arm, L Upper Leg, R Upper Leg, L Lower Leg (including foot), R Lower Leg (including foot), Chest, Abdomen, Buttocks, Perineal Area Shower/Bathe Self (QC): 5 (Set up and clean up in OR with cutout, AE as needed.) Upper Body Dressing (QC): 5 (Donned/doffed shirt set up) Lower Body Dressing (QC): 1 (assist x2) On/Off Footwear: 1 Other Treatment OT/PT cotreat due to skill of 2 clinicians required which a occupational therapist rehab manager could not perform in order to coordinate UE/LEs, decrease fall risk, and due to pt's limitations in strength, activity tolerance, mobility, transfers and balance. OT focused on UE placement, cues for sequencing and safety, and ADLs, PT focused on LE placement, gross overall movement, transfers/mobility. Pt supine in bed. Pt transitioned EOB, FWW to SC, SBA. Pt taken into bathroom, doffed shirt independently, doffed pants, underwear and socks, total assist, completed showering and dressing, transitioned back to W/C, FWW. Pt propelled W/C down to the windows on 2nd floor and back to therapy gym. Pt completed functional mobility across therapy gym and back x3. Pt taken to grab bars, completed 2x5 sit to stands. Pt propelled W/C down to window on 2nd floor and back to room. Pt in W/C, call light in reach and all needs met. Min A sit to stands from elevated bed, mod A stand pivot transfer using FWW. Education OT Patient Education: Correct positioning, Energy conservation, Progress toward Goal/Update tx plan, Purpose of tx/functional activities, Rehab process Teaching Recipient: Patient Teaching Methods: Demonstration, Discussion Response to Teaching: Verbalize Understanding, Return Demonstration, Reinforcement Needed (Pt needed cues for correct hand placement when sitting in W/C) OT Short Term Goals Short Term Goals Time Frame: Aug 18, 2021 Toileting hygiene: 3 Shower/bathe self: 3 Upper body dressin Lower body dressin Putting on/taking off footwear: 3 OT Fpc Goals [employer] Driver Goals Time Frame: Sep 03, 2021 Eating (QC): 6 Oral Hygiene (QC): 6 Toileting Hygiene (QC): 6 Shower/Bathe Self (QC): 6 Upper Body Dressing (QC): 6 Lower Body Dressing (QC): 6 On/Off Footwear (QC): 6 Additional Goals: 1-Demonstrate ADL Tasks, 2-Verbalize Understanding, 3- ImproveStrength/Glo 1=Demonstrate adherence to instructed precautions during ADL tasks. 2=Patient will verbalize/demonstrate understanding of assistive devices/m odifications for ADL. 3=Patient will improve strength/tolerance for activity to enable patient to perform ADL's. OT Education/Plan Problem List/Assessment Assessment: Decreased Activ Tolerance, Decreased Safety Aware, Decreased UE Strength, Impaired Coordination, Impaired Funct Balance, Impaired I ADL's, Impaired Self-Care Skills Discharge Recommendations Plan/Recommendations: Continue POC Treatment Plan/Plan of Care Patient would benefit from OT for education, treatment and training to promote independence in ADL's, mobility, safety and/or upper extremity function for ADL's. Plan of Care: ADL Retraining, Functional Mobility, Group Exercise/Act as Ind, UE Funct Exercise/Act Treatment Duration: Sep 03, 2021 Frequency: At least 5 of 7 days/Wk (IRF) Estimated Hrs Per Day: 1.5 hours per day Agreement: Yes Rehab Potential: Fair Time/GCodes Start Time: 09:00 Stop Time: 10:15 Total Time Billed (hr/min): 75 Billed Treatment Time [place] x75' 1, ADL 2 (30') FA 3 (45') ADAM FISHER OT Aug 12, 2021 10:11
--- NOTE | 2021-08-12 10:12 | Physical Therapy Daily Note ---
PT Daily Note-Current Subjective Patient in bed pre tx, agrees to PT, has no complaints of pain. Will be co- treating with OT due to poor patient mobility, strength, endurance, severe debility, coordinate UE and LE during activity, safety and reduce risk of falls. Appearance Patient in WC at bedside post tx with nurse call, phone, tray, all needs met. Mental Status Patient Orientation: Person, Place, Situation Transfers SCALE: Activities may be completed with or without assistive devices. 2-Nbjtmhzqzh-qpmffnf completes the activity by him/herself with no assistance from a helper. 5-Set-up or Clean-up Assistance-helper sets up or cleans up; patient completes activity. [place] assists only prior to or following the activity. 4-Supervision or Touching Assistance-helper provides verbal cues and/or touching/steadying and/or contact guard assistance as patient completes activity. Assistance may be provided throughout the activity or intermittently. 3-Partial/Moderate Assistance-helper does LESS THAN HALF the effort. [place] lifts, holds or supports trunk or limbs, but provides less than half the effort. 2-Substantial/Maximal Assistance-helper does MORE THAN HALF the effort. [place] lifts or holds trunk or limbs and provides more than half the effort. 4-Wlvuyjxtg-ghhwyf does ALL the effort. Patient does none of the effort to complete the activity. Or, the assistance of 2 or more helpers is required for the patient to complete the activity. If activity was not attempted, code reason: 7-Patient Refused. 9-Not Applicable-not attempted and the patient did not perform the activity before the current illness, exacerbation or injury. 10-Not Attempted due to Environmental Limitations-(lack of equipment, weather restraints, etc.). 88-Not Attempted due to Medical Conditions or Safety Concerns. Roll Left & Right (QC): 6 Lying to Sitting/Side of Bed(Q: 4 Sit to Stand (QC): 3 Chair/Tal-vj-Qzsee Xfer(QC): 3 Patient sits to the side of the bed with SBA, min assist for sit to stand from an elevated bed and mod assist for stand pivot transfer using a rolling walker going to the shower chair, undressing LE along the way (mod assist due to retropulsion), patient is wheeled into the shower, showers, when done stands (complete LE dressing), transfers to using rolling walker and again mod assist. Completes dressing. Gait Training Distance: 20'x3 Walk 10 feet (QC): 3 Gait Persons Needed: 1 Gait Assistive Device: FWW WC follow, still slightly retropulsive but he is able to maintain balance during ambulation but very unsteady Wheelchair Training Does the Pt Use a Wheelchair?: Yes Wheel 50 ft with 2 turns (QC): 4 Wheel 150 ft (QC): 4 Type of Wheelchair: Manual 300'x2 Exercises sit to stand from the side of the parallel bars working on positioning, performed 2 sets of 5 Treatments PT performed bed mobility and transfers, ambulation, WC mobility, standing, positioning and safety during activity, OT performed bathing, dressing, UE positioning and safety during activity, safety and positioning cues. Assessment Current Status: Poor Progress slow progress, persisting retropulsion during standing. PT Short Term Goals Short Term Goals Time Frame: Aug 11, 2021 Roll Left & Right: 6 Sit to lyin Lying to sitting on side of be: 3 Sit to stand: 2 Chair/nkw-vw-patuv transfer: 3 PT Dobby Loom Fixer Goals Residential Goals PT Residential Goals Time Frame: Aug 25, 2021 Roll Left & Right (QC): 6 Sit to Lying (QC): 6 Lying-Sitting on Side/Bed(QC): 6 Sit to Stand (QC): 3 Chair/Sme-va-Xniwl Xfer(QC): 3 Toilet Transfer (QC): 3 Car Transfer (QC): 3 Does the Patient Walk: No and Walking Goal NOT indicated Walk 10 feet (QC): 88 Walk 50ft with 2 Turns (QC): 88 Walk 150 ft (QC): 88 Walking 10ft on Uneven Surface: 88 1 Step (curb) (QC): 88 4 Steps (QC): 88 12 Steps (QC): 88 Picking up an Object (QC): 88 Wheel 50 feet with 2 turns (QC: 6 Wheel 150 feet: 6 PT Plan Problem List Problem List: Activity Tolerance, Functional Strength, Safety, Balance, Gait, Transfer, Bed Mobility, ROM Treatment/Plan Treatment Plan: Continue Plan of Care Treatment Plan: Bed Mobility, Education, Functional Activity Glo, Functional Strength, Group Therapy, Gait, Safety, Therapeutic Exercise, Transfers Treatment Duration: Aug 25, 2021 Frequency: At least 5 of 7 days/Wk (IRF) Estimated Hrs Per Day: 1.5 hours per day Patient and/or Family Agrees t: Yes Safety Risks/Education Patient Education: Gait Training, Transfer Techniques, Correct Positioning, W/C Management, Safety Issues Teaching Recipient: Patient Teaching Methods: Demonstration, Discussion Response to Teaching: Reinforcement Needed Time/GCodes Time In: 0900 Time Out: 1015 Total Billed Treatment Time: 75 Total Billed Treatment 1 visit EX 15' FA 60' FLASH ALLEN PT Aug 12, 2021 10:12
--- NOTE | 2021-08-12 12:49 | Speech Therapy Daily Note ---
Speech Daily Progress Note Subjective Date Seen by Provider: Aug 12, 2021 Time Seen by Provider: 08:30 The patient was lying in bed, awake and alert upon entrance to the room. The patient greeted the clinician appropriately and was agreeable to participation in the cognitive linguistic treatment session. Objective - Orientation: The patient remains independently oriented to city, state, month, day of week, date, and year. - The patient completed portions of the (Activities of Language Related Functional Activities) throughout the session today with the following results: Telling Time: The patient completed telling time on an analog clock with 80% accuracy and mild clinician cueing. Solving Daily Math Problems: The patient completed daily math problems mentally and independently with 100% accuracy. Assessment Assessment Current Status: Good Progress Treatment Plan Continue Plan of Care Speech Short Term Goals Short Term Goals Short Term Goals 1. The patient will participate and complete memory exercises with 80% accuracy, independently. 2. The patient will complete functional problem solving tasks with 80% accuracy, independently. Time Frame-STG: Two Weeks Speech Machine Pie Maker Goals Machine Pie Maker Goals 1. The patient will demonstrate improved cognitive linguistic function for return and discharge to the least restrictive environment. Time Frame: Three Weeks Speech-Plan Treatment Plan Speech Therapy Treatment Plan: Continue Plan of Care Treatment Duration: Sep 02, 2021 Frequency: 4 times per week (Four to five times per week.) Estimated Hrs Per Day: .5 hour per day Rehab Potential: Fair Pt/Family Agrees to Plan: Yes Safety Risks/Education Teaching Recipient: Patient Teaching Methods: Discussion Response to Teaching: Verbalize Understanding Education Topics Provided: Orientation strategies, external memory strategies Time Speech Therapy Time In: 08:30 Speech Therapy Time Out: 09:00 Total Billed Time: 30 Billed Treatment Time BOBBI Kennedy [facility] Aug 12, 2021 12:49
--- NOTE | 2021-08-12 16:15 | Podiatry Progress Note ---
Standard Progress Note Progress Notes/Assess & Plan Date Seen by a Provider: Aug 12, 2021 Time Seen by a Provider: 16:14 Progress/Assessment & Plan Consultation dictated. Foot care given. Follow up as needed. Final Diagnosis Onychomycosis, Peripheral Neuropathy, KATIE Le DPSarah Aug 12, 2021 16:15
--- NOTE | 2021-08-12 17:38 | CONSULTATION REPORT ---
DATE OF SERVICE: 08/12/2021 REASON FOR CONSULTATION: This 76-year-old male was admitted secondary to acute respiratory failure due to COVID 3 months ago required a PEG tube and trach placement. The patient ended up with AFib with RVR and a deep venous thrombosis. He is currently in inpatient rehabilitation and improving according to the patient. His strength is returning. The patient is well known to this physician as I have had the opportunity to perform surgical intervention on the left lower extremity. Today, the patient is complaining of painful toenails. He has been unable to reach for and care for his feet. PAST MEDICAL HISTORY: Includes pneumonia, AFib, hypercholesterolemia, hypertension, renal failure, gastroesophageal reflux, osteoarthritis, COVID-19. SOCIAL HISTORY: The patient is , currently retired, a former smoker. Denies alcohol or illicit drug use at this point. ALLERGIES: The patient has no known drug allergies. PHYSICAL EXAMINATION: LOWER EXTREMITY: With a focused examination, the patient has 2/4 dorsalis pedis pulse on the right, 0/4 posterior tibial pulse on the right. On the left, there is 1/4 dorsalis pedis pulse and 1/4 posterior tibial pulse. Cap refill time is less than 3 seconds to the hallux. No erythema is noted. NEUROLOGIC: The patient has intact protective sensation with 10-gram monofilament wire examination bilaterally. The patient also has diminished vibratory sensation to the forefoot bilaterally. INTEGUMENTARY: The patient has thick yellow dystrophic toenails with subungual debris R1, 3, 4, 5, L1, 2, 3, 5 digits. There are no open wounds, no ecchymosis noted bilaterally. The heels are without pathology at this time. MUSCULOSKELETAL FINDINGS: The patient has contracture of the lesser toes 2, 3, 4 and 5 on the right with the right second toe overlapping the third digit. There is a slight contracture of the left second toe at the distal interphalangeal joint. He has 4/5 muscle strength to the four major quadrants of the foot bilaterally. ASSESSMENT: 1. Idiopathic neuropathy. 2. Onychomycosis. 3. Hammer digit syndrome. PLAN: Various treatment options were discussed with the patient today. His toenails were debrided manually mechanically. Betadine applied R1, 3, 4, 5, L1, 2, 3, 5 digits. We discussed appropriate shoe gear when he gets to the point of ambulation, he is to have extra depth of the toe box to avoid pressure and problematic callus or ulcerations to the digits. The patient is welcome to follow up in my office upon discharge as needed. Job ID: [id number] DocumentID: [id number] Dictated Date: 08/12/2021 16:14:11 Raw Material Planner Date: 08/12/2021 17:38:14 Dictated By: KATIE BROOKS DPM
[2021-08-12] MEDS: AtorvaSTATin TABLET 10 MG TABLET PO SCH (19:51)
[2021-08-12 20:01] VITALS: BP 112/69
[2021-08-13] MEDS: MULTIVIT W/MINERALS TAB (THERAGRAN M) PO SCH (06:00)
[2021-08-13] MEDS: LEVOTHYROXINE 50 MCG (LEVOTHROID) TAB PO SCH (06:00)
--- NOTE | 2021-08-13 07:12 | PM&R Progress Note ---
Subjective HPI/CC On Admission Date Seen by Provider: Aug 13, 2021 Time Seen by Provider: 12:00 Subjective/Events-last exam 08/13/21: Pt doing very well Thyroid tolerated Checked meds and labs Taking Tylenol for pain Fever noted after COVID vaccine 08/12/21: Pt is doing a lot better Thyroid medication discussed Pt in a good mood COVID vaccine will be given Blood pressure remains low 08/11/21: Pt is doing very well Bowels moved yesterday TSH checked due to Amiodarone maintenance and it was 60 so I started pt on 50 MCG daily DC the PEG tube yesterday done by Dr. Tracy Peralta will see pt IS ordered Thigh weakness is significant 08/10/21: Pt is doing well Pt appreciates Dr. Zhang seeing him Pt will see Dr. Molina to remove PEG tube placed on 04/30/21 Clearer thoughts but thought his was his mother Pt is getting protein shakes since he lost 60 lbs through Covid 08/09/21: Pt doing really well today. EKG shows Atrial Flutter Low bp at 87/54 no symptoms though Amiodarone ordered Dr. Zhang will evaluate EKG Creatine 1.53 No dysphasia 08/08/21: Patient doing well Changing diet to regular Trach residual causes no issues with swallowing BM+ 08/07/2021: Patient doing really well Stood with the help of the parallel bars Checked meds and labs No pain is reported 08/06/2021: Patient doing pretty well No significant issues Short-term recall may be altered Checked meds and labs 08/05/2021: Pt doing really well Hgb 9.6 Creatinine is baseline at 1.54 Had a large BM last night Overall doing well Review of Systems General: Fatigue, Malaise Objective Exam Vital Signs Vital Signs Date Time Temp Pulse Resp B/P (MAP) Pulse Ox O2 Delivery O2 Flow Rate FiO2 08/14/21 04:27 36.9 08/13/21 20:54 Room Air 08/13/21 19:40 99 16 121/73 (89) 92 Capillary Refill : General Appearance: No Apparent Distress, WD/WN, Chronically ill, Thin HEENT: PERRL/EOMI, Normal ENT Inspection, Pharynx Normal Neck: Full Range of Motion, Normal Inspection, Non Tender, Supple, Carotid Bruit Respiratory: Chest Non Tender, Lungs Clear, Normal Breath Sounds, No Accessory Muscle Use, No Respiratory Distress Cardiovascular: Regular Rate, Rhythm, No Edema, No Gallop, No JVD, No Murmur, Normal Peripheral Pulses Gastrointestinal: Normal Bowel Sounds, No Organomegaly, No Pulsatile Mass, Non Tender, Soft Back: Normal Inspection, No CVA Tenderness, No Vertebral Tenderness Extremity: Normal Capillary Refill, Normal Inspection, Normal Range of Motion, Non Tender, No Calf Tenderness, No Pedal Edema Neurologic/Psychiatric: Alert, Oriented x3, No Motor/Sensory Deficits, Normal 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 FIM Transfers Therapy Code Descriptions/Definitions Functional [place] Measure: 0=Not Assessed/NA 4=Minimal Assistance 1=Total Assistance 5=Supervision or Setup 2=Maximal Assistance 6=Modified [place] 3=Moderate Assistance 7=Complete IndependenceSCALE: Activities may be completed with or without assistive devices. 2-Colzwzerve-tfdvmqk completes the activity by him/herself with no assistance from a helper. 5-Set-up or Clean-up Assistance-helper sets up or cleans up; patient completes activity. [place] assists only prior to or following the activity. 4-Supervision or Touching Assistance-helper provides verbal cues and/or touching/steadying and/or contact guard assistance as patient completes activity. Assistance may be provided throughout the activity or intermittently. 3-Partial/Moderate Assistance-helper does LESS THAN HALF the effort. [place] lifts, holds or supports trunk or limbs, but provides less than half the effort. 2-Substantial/Maximal Assistance-helper does MORE THAN HALF the effort. [place] lifts or holds trunk or limbs and provides more than half the effort. 1-Dsyfqzpvs-afdmli does ALL the effort. Patient does none of the effort to complete the activity. Or, the assistance of 2 or more helpers is required for the patient to complete the activity. If activity was not attempted, code reason: 7-Patient Refused. 9-Not Applicable-not attempted and the patient did not perform the activity before the current illness, exacerbation or injury. 10-Not Attempted due to Environmental Limitations-(lack of equipment, weather restraints, etc.). 88-Not Attempted due to Medical Conditions or Safety Concerns. Roll Left to Right (QC): 6 Sit to Lying (QC): 3 Sit to Stand (QC): 3 Chair/Asu-nu-Kejvb Xfer(QC): 3 Car Transfer (QC): 1 Gait Training Does the Patient Walk?: Yes Distance: 20'x3 Walk 10 feet (QC): 3 Walk 50 ft with 2 Turns(QC): 88 Walk 150 ft (QC): 88 Walking 10ft/uneven surface-QC: 88 Gait Persons Needed: 1 Gait Assistive Device: FWW Wheelchair Training Does the Pt Use a Wheelchair?: Yes Wheel 50 ft with 2 turns (QC): 4 Wheel 150 ft (QC): 4 Type of Wheelchair: Manual Stair Training 1 Step (curb) (QC): 88 4 Steps (QC): 88 12 Steps (QC): 88 Balance Picking up an Object (QC): 88 ADL-Treatment Eating (QC): 6 (Per pt report, IND with lunch. ) Oral Hygiene (QC): 5 (per clincial judgment, set up with task.) Bathing Location: L Arm, R Arm, L Upper Leg, R Upper Leg, L Lower Leg (including foot), R Lower Leg (including foot), Chest, Abdomen, Buttocks, Perineal Area Shower/Bathe Self (QC): 5 (Set up and clean up in SC with cutout, AE as needed.) Upper Body Dressing (QC): 5 (Donned/doffed shirt set up) Lower Body Dressing (QC): 1 (assist x2) On/Off Footwear (QC): 1 Toileting Hygiene (QC): 1 (sit to stand lift for clothing managment and hygiene.) Assessment/Plan Assessment and Plan Assess & Plan/Chief Complaint Assessment: Critical illness myopathy COVID-19 pneumonia April 2021 Status post ventilator dependence Atrial fibrillation during intubation Cardiac arrest x2 Previous smoker Weight loss New onset hypothyroidism TSH 60 so 50mcg started on 50mcg on 08/11/21 Fever after COVID vaccine 08/13/21 Plan: Inpatient rehab protocol Pain control Cardiology consult 08/05/2021: Supportive care Aggressive rehab Cardiology consult 08/06/2021: Supportive care Monitor blood pressure 08/07/2021: Intensive rehab Cardiology appreciated 08/08/21: Intensive rehab Reg diet 08/09/21: Supportive care Reg diet tolerated 08/10/21: Monitor weight loss Increase aggressive rehab 08/11/21: Thyroid supplement 08/12/21: Continue current care Aggressive rehab required 08/13/21: Monitor fever Synthroid (1) Chronic hypotension Assessment & Plan: Most likely related to profound weight loss ever since he was admitted to the hospital in April with Covid infection. He had been placed on midodrine in an outside facility. I had been attempting to wean this off. Due to low blood pressure which occurred when I change this to twice daily, I put this back to 3 times daily. He has now been found to have hypothyroidism. This could also be contributing to the hypotension. The primary provider will be starting him on thyroid medication. (2) Typical atrial flutter Assessment & Plan: His electrocardiograms on 08/05 and 08/07 showed atrial flutter with 4-1 AV block. I will continue amiodarone and apixaban. I do not see any urgent need for cardioversion. I may consider cardioversion after discharge. (3) Persistent atrial fibrillation Assessment & Plan: He had atrial fibrillation during his previous hospitaliz ation in our hospital 4 months ago. He he is now in atrial flutter as above. I suspect he goes back and forth from atrial flutter and atrial fibrillation. We will proceed as above. (4) Mixed hyperlipidemia Assessment & Plan: He has a history of hyperlipidemia and was taking atorvastatin at home. Somewhere along the line during his prolonged hospitalization, the atorvastatin was discontinued. I restarted his atorvastatin. (5) History of deep venous thrombosis Assessment & Plan: He had deep venous thrombosis when he was in an outside hospital. An inferior vena cava filter was placed at that time for unclear reasons. He Is back on oral anticoagulation. I ordered an ultrasound in our hospital that did not show any evidence of deep venous thrombosis. Once he is discharged home, we can arrange to have the filter removed. I do not believe we have anyone in this hospital who can perform this procedure. (6) Presence of inferior vena cava filter Assessment & Plan: As above, once he is discharged from our hospital, we can see about making arrangements to have the filter removed. (7) Stage 3 chronic kidney disease Assessment & Plan: This will need to be followed longitudinally. There is no indication to adjust the dose of apixaban based on his renal function. COTY SHIPMAN DO Aug 13, 2021 07:12
[2021-08-13 07:19] VITALS: BP 105/63
--- NOTE | 2021-08-13 07:35 | Physical Therapy Daily Note ---
PT Daily Note-Current Subjective Pt. agrees to bed mobility training and exercise. Pt. very emotional speaking of losing family members as well as dealing with intractable pain Pain Numeric Pain Scale: 5-Moderate Pain Location: Right Location Body Site: Arm Pain Description: Ache Mental Status Patient Orientation: Normal For Age Transfers SCALE: Activities may be completed with or without assistive devices. 0-Pdksqhqtrp-jdcbpis completes the activity by him/herself with no assistance from a helper. 5-Set-up or Clean-up Assistance-helper sets up or cleans up; patient completes activity. [place] assists only prior to or following the activity. 4-Supervision or Touching Assistance-helper provides verbal cues and/or touching/steadying and/or contact guard assistance as patient completes a ctivity. Assistance may be provided throughout the activity or intermittently. 3-Partial/Moderate Assistance-helper does LESS THAN HALF the effort. [place] lifts, holds or supports trunk or limbs, but provides less than half the effort. 2-Substantial/Maximal Assistance-helper does MORE THAN HALF the effort. [place] lifts or holds trunk or limbs and provides more than half the effort. 4-Ycuowvsxo-xsmlvy does ALL the effort. Patient does none of the effort to complete the activity. Or, the assistance of 2 or more helpers is required for the patient to complete the activity. If activity was not attempted, code reason: 7-Patient Refused. 9-Not Applicable-not attempted and the patient did not perform the activity before the current illness, exacerbation or injury. 10-Not Attempted due to Environmental Limitations-(lack of equipment, weather restraints, etc.). 88-Not Attempted due to Medical Conditions or Safety Concerns. rolling left and right, scooting up in bed, shifting bottom left to right all min to CGA and instruction Exercises Supine Ex: Ankle pumps (HC stretches 4 x 20s), Rolling, Heel Slides, Scooting, Straight leg raise, Hip abd/add Supine Reps: 12 needs assistance for exercises, also completed amputee K to C and isometrics x 10 ea Assessment Current Status: Fair Progress PT Short Term Goals Short Term Goals Time Frame: Aug 11, 2021 Roll Left & Right: 6 Sit to lyin Lying to sitting on side of be: 3 Sit to stand: 2 Chair/vxx-aq-piwln transfer: 3 PT Security Clerk Goals [facility] Goals PT [facility] Goals Time Frame: Aug 25, 2021 Roll Left & Right (QC): 6 Sit to Lying (QC): 6 Lying-Sitting on Side/Bed(QC): 6 Sit to Stand (QC): 3 Chair/Gaf-fk-Pqeip Xfer(QC): 3 Toilet Transfer (QC): 3 Car Transfer (QC): 3 Does the Patient Walk: No and Walking Goal NOT indicated Walk 10 feet (QC): 88 Walk 50ft with 2 Turns (QC): 88 Walk 150 ft (QC): 88 Walking 10ft on Uneven Surface: 88 1 Step (curb) (QC): 88 4 Steps (QC): 88 12 Steps (QC): 88 Picking up an Object (QC): 88 Wheel 50 feet with 2 turns (QC: 6 Wheel 150 feet: 6 PT Plan Treatment/Plan Treatment Plan: Continue Plan of Care Treatment Plan: Bed Mobility, Education, Functional Activity Glo, Functional Strength, Group Therapy, Gait, Safety, Therapeutic Exercise, Transfers Treatment Duration: Aug 25, 2021 Frequency: At least 5 of 7 days/Wk (IRF) Estimated Hrs Per Day: 1.5 hours per day Patient and/or Family Agrees t: Yes Safety Risks/Education Patient Education: Correct Positioning Time/GCodes Time In: 1320 Time Out: 1330 Total Billed Treatment Time: 10 Total Billed Treatment 1,EX10m, the above note and charge is for 08-11-2021 GWYN Peguero LEE A PTA Aug 13, 2021 07:35
[2021-08-13] MEDS: LACTOBACILLUS ACIDOPHILUS (PROBIOTIC) CAPSULE PO SCH ×2 (07:49→20:47)
[2021-08-13] MEDS: MIDODRINE 10 MG (PROAMATINE) TAB PO SCH ×3 (07:49→17:31)
[2021-08-13] MEDS: SENNA W/DOCUSATE (SENOKOT S) TABLET PO SCH ×2 (07:49→20:53)
[2021-08-13] MEDS: APIXABAN 5 MG (ELIQUIS) TABLET PO SCH ×2 (07:49→20:47)
[2021-08-13] MEDS: GABAPENTIN 100 MG (NEURONTIN) CAP PO SCH ×2 (07:49→17:31)
[2021-08-13] MEDS: AMIODARONE 200 MG (CORDARONE) TAB PO SCH (07:50)
[2021-08-13] MEDS: DOCUSATE SODIUM 100 MG (COLACE) CAP PO SCH ×4 (07:50→20:52)
[2021-08-13] MEDS: FAMOTIDINE 20 MG (PEPCID) TABLET PO SCH (07:51)
[2021-08-13] MEDS: ACETAMINOPHEN 325 MG TABLET PO PRN ×2 (07:51→19:29)
[2021-08-13] MEDS: polyethylene glycoL POWDER 17 GM (MIRALAX) PACK PO SCH ×2 (07:54→20:52)
--- NOTE | 2021-08-13 10:11 | Physical Therapy Daily Note ---
PT Daily Note-Current Subjective Patient in bed pre tx, agrees to PT, has no complaints of pain. Will be co- treating with OT due to poor patient mobility, strength, endurance, severe debility, coordinate UE and LE with activity, safety and reduce risk of falls. Appearance Patient in WC at bedside post tx with nurse call, phone, tray, all needs met. Mental Status Patient Orientation: Person, Place, Situation Transfers SCALE: Activities may be completed with or without assistive devices. 9-Dwdmjtrgog-gjswtik completes the activity by him/herself with no assistance from a helper. 5-Set-up or Clean-up Assistance-helper sets up or cleans up; patient completes activity. [place] assists only prior to or following the activity. 4-Supervision or Touching Assistance-helper provides verbal cues and/or touching/steadying and/or contact guard assistance as patient completes activity. Assistance may be provided throughout the activity or intermittently. 3-Partial/Moderate Assistance-helper does LESS THAN HALF the effort. [place] lifts, holds or supports trunk or limbs, but provides less than half the effort. 2-Substantial/Maximal Assistance-helper does MORE THAN HALF the effort. [place] lifts or holds trunk or limbs and provides more than half the effort. 8-Untndgxoo-jqczhr does ALL the effort. Patient does none of the effort to complete the activity. Or, the assistance of 2 or more helpers is required for the patient to complete the activity. If activity was not attempted, code reason: 7-Patient Refused. 9-Not Applicable-not attempted and the patient did not perform the activity before the current illness, exacerbation or injury. 10-Not Attempted due to Environmental Limitations-(lack of equipment, weather restraints, etc.). 88-Not Attempted due to Medical Conditions or Safety Concerns. Roll Left & Right (QC): 6 Lying to Sitting/Side of Bed(Q: 4 Sit to Stand (QC): 3 Chair/Uib-ev-Lv[place] Xfer(QC): 3 Patient continues to be retropulsive with transfers and standing initially. Gait Training Distance: 20'x3 Walk 10 feet (QC): 3 Gait Assistive Device: FWW WC follow, during ambulation patient went up and down an 8" platform to simulate what he has to go up and down to get onto his porch (according to patient), min assist for the steps (retropulsive, needs assist with balance) Wheelchair Training Does the Pt Use a Wheelchair?: Yes Wheel 50 ft with 2 turns (QC): 4 Wheel 150 ft (QC): 4 Type of Wheelchair: Manual 400', went up and down ramp with cues for positioning and direction Exercises standing x3 with RW from WC, min assist to stand, concentrating on balance after standing Treatments PT performed bed mobility and transfers, ambulation, steps, WC mobility, OT worked on UE positioning and safety during activity, safety and positioning cues Assessment Current Status: Poor Progress Patient is still retropulsive with most standing and ambulation and transfers. Patient needs detailed, careful cues for positioning and safety to perform mobility and if a family member is helping him at home they need to be able to anticipate when he will have difficulty and be able to assist him physically to recover from LOB or getting into potentially dangerous positions that could cause him to fall. Patient has family training Monday. It is doubtful a family member would be able to assist patient with this in a safe manner unless they have experience with assisting patients with safety and functional mobility in the first place. PT Short Term Goals Short Term Goals Time Frame: Aug 11, 2021 Roll Left & Right: 6 Sit to lyin Lying to sitting on side of be: 3 Sit to stand: 2 Chair/ity-wv-otjpe transfer: 3 PT Fire Claims Adjuster Goals [facility] Goals PT [facility] Goals Time Frame: Aug 25, 2021 Roll Left & Right (QC): 6 Sit to Lying (QC): 6 Lying-Sitting on Side/Bed(QC): 6 Sit to Stand (QC): 3 Chair/Kze-sy-Vqmwv Xfer(QC): 3 Toilet Transfer (QC): 3 Car Transfer (QC): 3 Does the Patient Walk: No and Walking Goal NOT indicated Walk 10 feet (QC): 88 Walk 50ft with 2 Turns (QC): 88 Walk 150 ft (QC): 88 Walking 10ft on Uneven Surface: 88 1 Step (curb) (QC): 88 4 Steps (QC): 88 12 Steps (QC): 88 Picking up an Object (QC): 88 Wheel 50 feet with 2 turns (QC: 6 Wheel 150 feet: 6 PT Plan Problem List Problem List: Activity Tolerance, Functional Strength, Safety, Balance, Gait, Transfer, Bed Mobility, ROM Treatment/Plan Treatment Plan: Continue Plan of Care Treatment Plan: Bed Mobility, Education, Functional Activity Glo, Functional Strength, Group Therapy, Gait, Safety, Therapeutic Exercise, Transfers Treatment Duration: Aug 25, 2021 Frequency: At least 5 of 7 days/Wk (IRF) Estimated Hrs Per Day: 1.5 hours per day Patient and/or Family Agrees t: Yes Safety Risks/Education Patient Education: Gait Training, Transfer Techniques, Steps, Correct Positioning, W/C Management, Safety Issues Teaching Recipient: Patient Teaching Methods: Demonstration, Discussion Response to Teaching: Reinforcement Needed Time/GCodes Time In: 0900 Time Out: 1015 Total Billed Treatment Time: 75 Total Billed Treatment 1 visit FA 75' co-treated for 75' FLASH ALLEN PT Aug 13, 2021 10:11
--- NOTE | 2021-08-13 10:11 | Occupational Ther Daily Note ---
OT Current Status-Daily Note Subjective Pt supine in bed. Pt agreeable to OT tx. Mental Status/Objective Patient Orientation: Person, Place, Time, Situation ADL-Treatment Therapy Code Descriptions/Definitions Functional [place] Measure: 0=Not Assessed/NA 4=Minimal Assistance 1=Total Assistance 5=Supervision or Setup 2=Maximal Assistance 6=Modified [place] 3=Moderate Assistance 7=Complete IndependenceSCALE: Activities may be completed with or without assistive devices. 3-Sjtzcxhsak-gwtnbgx completes the activity by him/herself with no assistance from a helper. 5-Set-up or Clean-up Assistance-helper sets up or cleans up; patient completes activity. [place] assists only prior to or following the activity. 4-Supervision or Touching Assistance-helper provides verbal cues and/or touching/steadying and/or contact guard assistance as patient completes activity. Assistance may be provided throughout the activity or intermittently. 3-Partial/Moderate Assistance-helper does LESS THAN HALF the effort. [place] lifts, holds or supports trunk or limbs, but provides less than half the effort. 2-Substantial/Maximal Assistance-helper does MORE THAN HALF the effort. [place] lifts or holds trunk or limbs and provides more than half the effort. 8-Gueoxjuju-poosxn does ALL the effort. Patient does none of the effort to complete the activity. Or, the assistance of 2 or more helpers is required for the patient to complete the activity. If activity was not attempted, code reason: 7-Patient Refused. 9-Not Applicable-not attempted and the patient did not perform the activity before the current illness, exacerbation or injury. 10-Not Attempted due to Environmental Limitations-(lack of equipment, weather restraints, etc.). 88-Not Attempted due to Medical Conditions or Safety Concerns. On/Off Footwear: 1 (total assist ) Other Treatment OT/PT cotreat due to skill of 2 clinicians required which a music rehabilitation therapist could not perform in order to coordinate UE/LEs, decrease fall risk, and due to pt's limitations in strength, activity tolerance, mobility, transfers and balance. OT focused on UE placement, cues for sequencing and safety, community mobility and using ramps/elevator. PT focused on LE placement, gross overall movement, transfers/mobility. Pt supine in bed. Pt transitioned EOB to W/C, FWW, min A with cues for UE placement. Pt required total assist to don tennis shoes. Pt propelled W/C to elevators, down on 1st floor to ramp. Pt completed going up and down the ramp in W/C. Pt instructed on using UEs to slow down w/c during decline of ramp, he instead kept pushing the w/c forward requiring assistance to slow down and stop the w/c. Pt had poor safety awareness going down the ramp. Pt propelled W/C back to elevator and then to therapy gym. Pt completed functional mobility up and over the curb step x3, min A. Pt did sit to stands in W/C x3, min A, verbal cues needed for correct hand placement. Pt propelled back to room. Pt in locked W/C, call light in reach and all needs met. With all transfers/mobility, pt required detailed and careful cues for positioning and safety. Education OT Patient Education: Correct positioning, Energy conservation, Progress toward Goal/Update tx plan, Purpose of tx/functional activities, Reviewed precautions, Rehab process Teaching Recipient: Patient Teaching Methods: Demonstration, Discussion Response to Teaching: Verbalize Understanding, Return Demonstration, Reinforcement Needed OT Short Term Goals Short Term Goals Time Frame: Aug 18, 2021 Toileting hygiene: 3 Shower/bathe self: 3 Upper body dressin Lower body dressin Putting on/taking off footwear: 3 OT Elevator Tender Goals [facility] Goals Time Frame: Sep 03, 2021 Eating (QC): 6 Oral Hygiene (QC): 6 Toileting Hygiene (QC): 6 Shower/Bathe Self (QC): 6 Upper Body Dressing (QC): 6 Lower Body Dressing (QC): 6 On/Off Footwear (QC): 6 Additional Goals: 1-Demonstrate ADL Tasks, 2-Verbalize Understanding, 3- ImproveStrength/Glo 1=Demonstrate adherence to instructed precautions during ADL tasks. 2=Patient will verbalize/demonstrate understanding of assistive devices/modifications for ADL. 3=Patient will improve strength/tolerance for activity to enable patient to perform ADL's. OT Education/Plan Problem List/Assessment Assessment: Decreased Activ Tolerance, Decreased Safety Aware, Decreased UE Strength, Impaired Coordination, Impaired Funct Balance, Impaired I ADL's, Impaired Self-Care Skills Discharge Recommendations Plan/Recommendations: Continue POC Treatment Plan/Plan of Care Patient would benefit from OT for education, treatment and training to promote independence in ADL's, mobility, safety and/or upper extremity function for ADL's. Plan of Care: ADL Retraining, Functional Mobility, Group Exercise/Act as Ind, UE Funct Exercise/Act Treatment Duration: Sep 03, 2021 Frequency: At least 5 of 7 days/Wk (IRF) Estimated Hrs Per Day: 1.5 hours per day Agreement: Yes Rehab Potential: Fair Time/GCodes Start Time: 09:00 Stop Time: 10:15 Total Time Billed (hr/min): 75 Billed Treatment Time [place] (75) 1, FA 5 (75) ADAM FISHER OT Aug 13, 2021 10:11
--- NOTE | 2021-08-13 10:59 | Speech Therapy Daily Note ---
Speech Daily Progress Note Subjective Date Seen by Provider: Aug 13, 2021 Time Seen by Provider: 08:30 The patient was lying in bed, awake and alert upon entrance to the room. The patient greeted the clinician appropriately and was agreeable to participation in the cognitive linguistic treatment session. Objective - Orientation: The patient was independently oriented to city, state, location, month, day of week, date, and year. - Functional Recall: The patient was asked to recall his daily schedule (specific times of therapy) at the close of the session following a discussion and review with the clinician at the initiation of the therapy session. The patient was able to recall the time of his upcoming therapy at the close of the session with 100% accuracy. - "What's Wrong?" Photographs: The patient was presented photographs to compare with images missing or not present in one photograph which are present in the second. The patient displayed excellent attention to task which is necessary (attention) to complete multi-step sequences presented by physical therapy and occupational therapy. The patient completed the exercise with high accuracy and mild clinician verbal cueing. Assessment Assessment Current Status: Good Progress Treatment Plan Continue Plan of Care Speech Short Term Goals Short Term Goals Short Term Goals 1. The patient will participate and complete memory exercises with 80% accuracy, independently. 2. The patient will complete functional problem solving tasks with 80% accuracy, independently. Time Frame-STG: Two Weeks Speech Chemical Processing Equipment Repairer Goals Correction Goals 1. The patient will demonstrate improved cognitive linguistic function for return and discharge to the least restrictive environment. Time Frame: Three Weeks Speech-Plan Treatment Plan Speech Therapy Treatment Plan: Continue Plan of Care Treatment Duration: Sep 02, 2021 Frequency: 4 times per week (Four to five times per week.) Estimated Hrs Per Day: .5 hour per day Rehab Potential: Fair Pt/Family Agrees to Plan: Yes Safety Risks/Education Teaching Recipient: Patient Teaching Methods: Discussion Response to Teaching: Verbalize Understanding Education Topics Provided: Plan of care discussion. Time Speech Therapy Time In: 08:30 Speech Therapy Time Out: 09:00 Total Billed Time: 30 Billed Treatment Time BrentJUNEMARI Dede ELOISE LOPEZ Aug 13, 2021 10:59
[2021-08-13 19:40] VITALS: BP 121/73
[2021-08-13] MEDS: AtorvaSTATin TABLET 10 MG TABLET PO SCH (20:47)
[2021-08-14] MEDS: LEVOTHYROXINE 50 MCG (LEVOTHROID) TAB PO SCH (06:13)
[2021-08-14] MEDS: MULTIVIT W/MINERALS TAB (THERAGRAN M) PO SCH (06:13)
[2021-08-14 08:33] VITALS: BP 96/59
[2021-08-14] MEDS: MIDODRINE 10 MG (PROAMATINE) TAB PO SCH ×3 (08:53→17:17)
[2021-08-14] MEDS: GABAPENTIN 100 MG (NEURONTIN) CAP PO SCH ×3 (08:53→17:17)
[2021-08-14] MEDS: LACTOBACILLUS ACIDOPHILUS (PROBIOTIC) CAPSULE PO SCH ×2 (08:53→20:46)
[2021-08-14] MEDS: FAMOTIDINE 20 MG (PEPCID) TABLET PO SCH (08:53)
[2021-08-14] MEDS: AMIODARONE 200 MG (CORDARONE) TAB PO SCH (08:54)
[2021-08-14] MEDS: APIXABAN 5 MG (ELIQUIS) TABLET PO SCH ×2 (08:54→20:46)
[2021-08-14] MEDS: polyethylene glycoL POWDER 17 GM (MIRALAX) PACK PO SCH ×2 (09:03→20:47)
[2021-08-14] MEDS: DOCUSATE SODIUM 100 MG (COLACE) CAP PO SCH ×4 (09:03→20:47)
[2021-08-14] MEDS: SENNA W/DOCUSATE (SENOKOT S) TABLET PO SCH ×2 (09:04→20:47)
--- NOTE | 2021-08-14 09:44 | PM&R Progress Note ---
Subjective HPI/CC On Admission Date Seen by Provider: Aug 14, 2021 Time Seen by Provider: 13:30 Subjective/Events-last exam 08/14/2021: Patient doing really well No fever after Covid vaccine induced fever yesterday No evidence of sepsis Bowels moved yesterday Skin tears improved 08/13/21: Pt doing very well Thyroid tolerated Checked meds and labs Taking Tylenol for pain Fever noted after COVID vaccine 08/12/21: Pt is doing a lot better Thyroid medication discussed Pt in a good mood COVID vaccine will be given Blood pressure remains low 08/11/21: Pt is doing very well Bowels moved yesterday TSH checked due to Amiodarone maintenance and it was 60 so I started pt on 50 MCG daily DC the PEG tube yesterday done by Dr. Tracy Peralta will see pt IS ordered Thigh weakness is significant 08/10/21: Pt is doing well Pt appreciates Dr. Zhang seeing him Pt will see Dr. Molina to remove PEG tube placed on 04/30/21 Clearer thoughts but thought his was his mother Pt is getting protein shakes since he lost 60 lbs through Covid 08/09/21: Pt doing really well today. EKG shows Atrial Flutter Low bp at 87/54 no symptoms though Amiodarone ordered Dr. Zhang will evaluate EKG Creatine 1.53 No dysphasia 08/08/21: Patient doing well Changing diet to regular Trach residual causes no issues with swallowing BM+ 08/07/2021: Patient doing really well Stood with the help of the parallel bars Checked meds and labs No pain is reported 08/06/2021: Patient doing pretty well No significant issues Short-term recall may be altered Checked meds and labs 08/05/2021: Pt doing really well Hgb 9.6 Creatinine is baseline at 1.54 Had a large BM last night Overall doing well Review of Systems General: Fatigue, Malaise Objective Exam Vital Signs Vital Signs Date Time Temp Pulse Resp B/P (MAP) Pulse Ox O2 Delivery O2 Flow Rate FiO2 08/14/21 08:47 Room Air 08/14/21 08:33 36.8 88 20 96/59 (71) 98 Capillary Refill : General Appearance: No Apparent Distress, WD/WN, Chronically ill, Thin HEENT: PERRL/EOMI, Normal ENT Inspection, Pharynx Normal Neck: Full Range of Motion, Normal Inspection, Non Tender, Supple, Carotid Bruit Respiratory: Chest Non Tender, Lungs Clear, Normal Breath Sounds, No Accessory Muscle Use, No Respiratory Distress Cardiovascular: Regular Rate, Rhythm, No Edema, No Gallop, No JVD, No Murmur, Normal Peripheral Pulses Gastrointestinal: Normal Bowel Sounds, No Organomegaly, No Pulsatile Mass, Non Tender, Soft Back: Normal Inspection, No CVA Tenderness, No Vertebral Tenderness Extremity: Normal Capillary Refill, Normal Inspection, Normal Range of Motion, Non Tender, No Calf Tenderness, No Pedal Edema Neurologic/Psychiatric: Alert, Oriented x3, No Motor/Sensory Deficits, Normal Mood/Affect, auto damage estimator II-XII Norm as Tested, Motor Weakness (Severe muscle weakness upper and lower extremities) Skin: Normal Color, Warm/Dry Lymphatic: No Adenopathy Results/Procedures Lab Patient resulted labs reviewed. FIM Transfers Therapy Code Descriptions/Definitions Functional [place] Measure: 0=Not Assessed/NA 4=Minimal Assistance 1=Total Assistance 5=Supervision or Setup 2=Maximal Assistance 6=Modified [place] 3=Moderate Assistance 7=Complete IndependenceSCALE: Activities may be completed with or without assistive devices. 3-Elmtgkyopb-tzszfkt completes the activity by him/herself with no assistance from a helper. 5-Set-up or Clean-up Assistance-helper sets up or cleans up; patient completes activity. [place] assists only prior to or following the activity. 4-Supervision or Touching Assistance-helper provides verbal cues and/or touching/steadying and/or contact guard assistance as patient completes activity. Assistance may be provided throughout the activity or intermittently. 3-Partial/Moderate Assistance-helper does LESS THAN HALF the effort. [place] lifts, holds or supports trunk or limbs, but provides less than half the effort. 2-Substantial/Maximal Assistance-helper does MORE THAN HALF the effort. [place] lifts or holds trunk or limbs and provides more than half the effort. 6-Pajmkacbe-nglcdl does ALL the effort. Patient does none of the effort to complete the activity. Or, the assistance of 2 or more helpers is required for the patient to complete the activity. If activity was not attempted, code reason: 7-Patient Refused. 9-Not Applicable-not attempted and the patient did not perform the activity before the current illness, exacerbation or injury. 10-Not Attempted due to Environmental Limitations-(lack of equipment, weather restraints, etc.). 88-Not Attempted due to Medical Conditions or Safety Concerns. Roll Left to Right (QC): 6 Sit to Lying (QC): 3 Sit to Stand (QC): 3 Chair/Nmu-af-Cplzl Xfer(QC): 3 Car Transfer (QC): 1 Gait Training Does the Patient Walk?: Yes Distance: 20'x3 Walk 10 feet (QC): 3 Walk 50 ft with 2 Turns(QC): 88 Walk 150 ft (QC): 88 Walking 10ft/uneven surface-QC: 88 Gait Persons Needed: 1 Gait Assistive Device: FWW Wheelchair Training Does the Pt Use a Wheelchair?: Yes Wheel 50 ft with 2 turns (QC): 4 Wheel 150 ft (QC): 4 Type of Wheelchair: Manual Stair Training 1 Step (curb) (QC): 88 4 Steps (QC): 88 12 Steps (QC): 88 Balance Picking up an Object (QC): 88 ADL-Treatment Eating (QC): 6 (Per pt report, IND with lunch. ) Oral Hygiene (QC): 5 (per clincial judgment, set up with task.) Bathing Location: L Arm, R Arm, L Upper Leg, R Upper Leg, L Lower Leg (including foot), R Lower Leg (including foot), Chest, Abdomen, Buttocks, Perineal Area Shower/Bathe Self (QC): 5 (Set up and clean up in SC with cutout, AE as needed.) Upper Body Dressing (QC): 5 (Donned/doffed shirt set up) Lower Body Dressing (QC): 1 (assist x2) On/Off Footwear (QC): 1 (total assist ) Toileting Hygiene (QC): 1 (sit to stand lift for clothing managment and hyg iene.) Assessment/Plan Assessment and Plan Assess & Plan/Chief Complaint Assessment: Critical illness myopathy COVID-19 pneumonia April 2021 Status post ventilator dependence Atrial fibrillation during intubation Cardiac arrest x2 Previous smoker Weight loss New onset hypothyroidism TSH 60 so 50mcg started on 50mcg on 08/11/21 Fever after COVID vaccine 08/13/21 Plan: Inpatient rehab protocol Pain control Cardiology consult 08/05/2021: Supportive care Aggressive rehab Cardiology consult 08/06/2021: Supportive care Monitor blood pressure 08/07/2021: Intensive rehab Cardiology appreciated 08/08/21: Intensive rehab Reg diet 08/09/21: Supportive care Reg diet tolerated 08/10/21: Monitor weight loss Increase aggressive rehab 08/11/21: Thyroid supplement 08/12/21: Continue current care Aggressive rehab required 08/13/21: Monitor fever Synthroid 08/24/2021: Supportive care Synthroid (1) Chronic hypotension Assessment & Plan: Most likely related to profound weight loss ever since he was admitted to the hospital in April with Covid infection. He had been placed on midodrine in an outside facility. I had been attempting to wean this off. Due to low blood pressure which occurred when I change this to twice daily, I put this back to 3 times daily. He has now been found to have hypothyroidism. This could also be contributing to the hypotension. The primary provider will be starting him on thyroid medication. (2) Typical atrial flutter Assessment & Plan: His electrocardiograms on 08/05 and 08/07 showed atrial flutt er with 4-1 AV block. I will continue amiodarone and apixaban. I do not see any urgent need for cardioversion. I may consider cardioversion after discharge. (3) Persistent atrial fibrillation Assessment & Plan: He had atrial fibrillation during his previous hospitalization in our hospital 4 months ago. He he is now in atrial flutter as above. I suspect he goes back and forth from atrial flutter and atrial fibrillation. We will proceed as above. (4) Mixed hyperlipidemia Assessment & Plan: He has a history of hyperlipidemia and was taking ator vastatin at home. Somewhere along the line during his prolonged hospitalization, the atorvastatin was discontinued. I restarted his atorvastatin. (5) History of deep venous thrombosis Assessment & Plan: He had deep venous thrombosis when he was in an outside hospital. An inferior vena cava filter was placed at that time for unclear kasi sons. He Is back on oral anticoagulation. I ordered an ultrasound in our hospital that did not show any evidence of deep venous thrombosis. Once he is discharged home, we can arrange to have the filter removed. I do not believe we have anyone in this hospital who can perform this procedure. (6) Presence of inferior vena cava filter Assessment & Plan: As above, once he is discharged from our hospital, we can see about making arrangements to have the filter removed. (7) Stage 3 chronic kidney disease Assessment & Plan: This will need to be followed longitudinally. There is no indication to adjust the dose of apixaban based on his renal function. COTY SHIPMAN DO Aug 14, 2021 09:44
--- NOTE | 2021-08-14 13:41 | Physical Therapy Daily Note ---
PT Daily Note-Current Subjective Pt laying Supine in bed upon arrival. Pt agrees to PT. Mental Status Patient Orientation: Person, Place, Situation Transfers SCALE: Activities may be completed with or without assistive devices. 9-Aqvfamvgwm-yungsxg completes the activity by him/herself with no assistance from a helper. 5-Set-up or Clean-up Assistance-helper sets up or cleans up; patient completes activity. [place] assists only prior to or following the activity. 4-Supervision or Touching Assistance-helper provides verbal cues and/or touching/steadying and/or contact guard assistance as patient completes activity. Assistance may be provided throughout the activity or intermittently. 3-Partial/Moderate Assistance-helper does LESS THAN HALF the effort. [place] lifts, holds or supports trunk or limbs, but provides less than half the effort. 2-Substantial/Maximal Assistance-helper does MORE THAN HALF the effort. [place] lifts or holds trunk or limbs and provides more than half the effort. 7-Qyxhpjrah-hbsarr does ALL the effort. Patient does none of the effort to complete the activity. Or, the assistance of 2 or more helpers is required for the patient to complete the activity. If activity was not attempted, code reason: 7-Patient Refused. 9-Not Applicable-not attempted and the patient did not perform the activity before the current illness, exacerbation or injury. 10-Not Attempted due to Environmental Limitations-(lack of equipment, weather restraints, etc.). 88-Not Attempted due to Medical Conditions or Safety Concerns. Lying to Sitting/Side of Bed(Q: 4 Sit to Stand (QC): 3 Chair/Hxf-mp-Kqpkb Xfer(QC): 4 Weight Bearing Full Weight Bearing Full Weight Bearing Exercises Supine Ex: Quad Set, Glut sets, Heel Slides, Short Arc Quads, Straight leg raise, Hip abd/add Supine Reps: 15 Seated Therapy Exercises: Ankle pumps, Long arc quads, Hip flexion Seated Reps: 15 Treatments TF to EOB then standing and TF to recliner. Pt completes written HEP for Supine & Seated EX. Pt resting at end of tx with all needs met, call light in hand. Assessment Current Status: Fair Progress Pt fatigues easily and reports weakness. PT Short Term Goals Short Term Goals Time Frame: Aug 11, 2021 Roll Left & Right: 6 Sit to lyin Lying to sitting on side of be: 3 Sit to stand: 2 Chair/dnv-ak-nfcqq transfer: 3 PT Longterm Goals Longterm Goals PT Longterm Goals Time Frame: Aug 25, 2021 Roll Left & Right (QC): 6 Sit to Lying (QC): 6 Lying-Sitting on Side/Bed(QC): 6 Sit to Stand (QC): 3 Chair/Omt-lh-Wqnuw Xfer(QC): 3 Toilet Transfer (QC): 3 Car Transfer (QC): 3 Does the Patient Walk: No and Walking Goal NOT indicated Walk 10 feet (QC): 88 Walk 50ft with 2 Turns (QC): 88 Walk 150 ft (QC): 88 Walking 10ft on Uneven Surface: 88 1 Step (curb) (QC): 88 4 Steps (QC): 88 12 Steps (QC): 88 Picking up an Object (QC): 88 Wheel 50 feet with 2 turns (QC: 6 Wheel 150 feet: 6 PT Plan Problem List Problem List: Activity Tolerance, Functional Strength, Balance, Gait Treatment/Plan Treatment Plan: Continue Plan of Care Treatment Plan: Bed Mobility, Education, Functional Activity Glo, Functional Strength, Group Therapy, Gait, Safety, Therapeutic Exercise, Transfers Treatment Duration: Aug 25, 2021 Frequency: At least 5 of 7 days/Wk (IRF) Estimated Hrs Per Day: 1.5 hours per day Patient and/or Family Agrees t: Yes Safety Risks/Education Patient Education: Gait Training, Transfer Techniques, Correct Positioning, S afety Issues Teaching Recipient: Patient Teaching Methods: Discussion Response to Teaching: Verbalize Understanding Time/GCodes Time In: 1240 Time Out: 1310 Total Billed Treatment Time: 30 Total Billed Treatment 1, FA (10m) & EX (20m) ARLETH LUCERO FIELD SERVICE COORDINATOR Aug 14, 2021 13:41
[2021-08-14 19:06] VITALS: BP 89/63
[2021-08-14] MEDS: AtorvaSTATin TABLET 10 MG TABLET PO SCH (20:47)
[2021-08-14 22:21] VITALS: BP 102/62
[2021-08-15] MEDS: MULTIVIT W/MINERALS TAB (THERAGRAN M) PO SCH (06:20)
[2021-08-15] MEDS: LEVOTHYROXINE 50 MCG (LEVOTHROID) TAB PO SCH (06:20)
[2021-08-15] MEDS: ACETAMINOPHEN 325 MG TABLET PO PRN ×3 (06:25→20:33)
--- NOTE | 2021-08-15 08:36 | PM&R Progress Note ---
Subjective HPI/CC On Admission Date Seen by Provider: Aug 15, 2021 Time Seen by Provider: 14:00 Subjective/Events-last exam 08/15/2021: Patient doing very well No pain is reported Difficult transfer Ready for discharge on Monday08/14/2021: Patient doing really well No fever after Covid vaccine induced fever yesterday No evidence of sepsis Bowels moved yesterday Skin tears improved 08/13/21: Pt doing very well Thyroid tolerated Checked meds and labs Taking Tylenol for pain Fever noted after COVID vaccine 08/12/21: Pt is doing a lot better Thyroid medication discussed Pt in a good mood COVID vaccine will be given Blood pressure remains low 08/11/21: Pt is doing very well Bowels moved yesterday TSH checked due to Amiodarone maintenance and it was 60 so I started pt on 50 MCG daily DC the PEG tube yesterday done by Dr. Tracy Peralta will see pt IS ordered Thigh weakness is significant 08/10/21: Pt is doing well Pt appreciates Dr. Zhang seeing him Pt will see Dr. Molina to remove PEG tube placed on 04/30/21 Clearer thoughts but thought his was his mother Pt is getting protein shakes since he lost 60 lbs through Covid 08/09/21: Pt doing really well today. EKG shows Atrial Flutter Low bp at 87/54 no symptoms though Amiodarone ordered Dr. Zhang will evaluate EKG Creatine 1.53 No dysphasia 08/08/21: Patient doing well Changing diet to regular Trach residual causes no issues with swallowing BM+ 08/07/2021: Patient doing really well Stood with the help of the parallel bars Checked meds and labs No pain is reported 08/06/2021: Patient doing pretty well No significant issues Short-term recall may be altered Checked meds and labs 08/05/2021: Pt doing really well Hgb 9.6 Creatinine is baseline at 1.54 Had a large BM last night Overall doing well Review of Systems General: Fatigue, Malaise Pulmonary: Dyspnea Objective Exam Vital Signs Vital Signs Date Time Temp Pulse Resp B/P (MAP) Pulse Ox O2 Delivery O2 Flow Rate FiO2 08/15/21 20:35 100 Room Air 08/15/21 20:04 36.9 73 18 98/59 (72) Capillary Refill : General Appearance: No Apparent Distress, WD/WN, Chronically ill, Thin HEENT: PERRL/EOMI, Normal ENT Inspection, Pharynx Normal Neck: Full Range of Motion, Normal Inspection, Non Tender, Supple, Carotid Bruit Respiratory: Chest Non Tender, Lungs Clear, Normal Breath Sounds, No Accessory Muscle Use, No Respiratory Distress Cardiovascular: Regular Rate, Rhythm, No Edema, No Gallop, No JVD, No Murmur, Normal Peripheral Pulses Gastrointestinal: Normal Bowel Sounds, No Organomegaly, No Pulsatile Mass, Non Tender, Soft Back: Normal Inspection, No CVA Tenderness, No Vertebral Tenderness Extremity: Normal Capillary Refill, Normal Inspection, Normal Range of Motion, Non Tender, No Calf Tenderness, No Pedal Edema Neurologic/Psychiatric: Alert, Oriented x3, No Motor/Sensory Deficits, Normal Mood/Affect, 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 FIM Transfers Therapy Code Descriptions/Definitions Functional [place] Measure: 0=Not Assessed/NA 4=Minimal Assistance 1=Total Assistance 5=Supervision or Setup 2=Maximal Assistance 6=Modified [place] 3=Moderate Assistance 7=Complete IndependenceSCALE: Activities may be completed with or without assistive devices. 8-Qdtzvokqln-pgptebw completes the activity by him/herself with no assistance from a helper. 5-Set-up or Clean-up Assistance-helper sets up or cleans up; patient completes activity. [place] assists only prior to or following the activity. 4-Supervision or Touching Assistance-helper provides verbal cues and/or touching/steadying and/or contact guard assistance as patient completes activity. Assistance may be provided throughout the activity or intermittently. 3-Partial/Moderate Assistance-helper does LESS THAN HALF the effort. [place] lifts, holds or supports trunk or limbs, but provides less than half the effort. 2-Substantial/Maximal Assistance-helper does MORE THAN HALF the effort. [place] lifts or holds trunk or limbs and provides more than half the effort. 3-Ummgkuyco-unwbic does ALL the effort. Patient does none of the effort to complete the activity. Or, the assistance of 2 or more helpers is required for the patient to complete the activity. If activity was not attempted, code reason: 7-Patient Refused. 9-Not Applicable-not attempted and the patient did not perform the activity bef ore the current illness, exacerbation or injury. 10-Not Attempted due to Environmental Limitations-(lack of equipment, weather r estraints, etc.). 88-Not Attempted due to Medical Conditions or Safety Concerns. Roll Left to Right (QC): 6 Sit to Lying (QC): 3 Sit to Stand (QC): 3 Chair/Bdx-at-Xtekz Xfer(QC): 4 Car Transfer (QC): 1 Gait Training Does the Patient Walk?: Yes Distance: 20'x3 Walk 10 feet (QC): 3 Walk 50 ft with 2 Turns(QC): 88 Walk 150 ft (QC): 88 Walking 10ft/uneven surface-QC: 88 Gait Persons Needed: 1 Gait Assistive Device: FWW Wheelchair Training Does the Pt Use a Wheelchair?: Yes Wheel 50 ft with 2 turns (QC): 4 Wheel 150 ft (QC): 4 Type of Wheelchair: Manual Stair Training 1 Step (curb) (QC): 88 4 Steps (QC): 88 12 Steps (QC): 88 Balance Picking up an Object (QC): 88 ADL-Treatment Eating (QC): 6 (Per pt report, IND with lunch. ) Oral Hygiene (QC): 5 (per clincial judgment, set up with task.) Bathing Location: L Arm, R Arm, L Upper Leg, R Upper Leg, L Lower Leg (including foot), R Lower Leg (including foot), Chest, Abdomen, Buttocks, Perineal Area Shower/Bathe Self (QC): 5 (Set up and clean up in [place] with cutout, AE as needed.) Upper Body Dressing (QC): 5 (Donned/doffed shirt set up) Lower Body Dressing (QC): 1 (assist x2) On/Off Footwear (QC): 1 (total assist ) Toileting Hygiene (QC): 1 (sit to stand lift for clothing managment and hygiene.) Assessment/Plan Assessment and Plan Assess & Plan/Chief Complaint Assessment: Critical illness myopathy COVID-19 pneumonia April 2021 Status post ventilator dependence Atrial fibrillation during intubation Cardiac arrest x2 Previous smoker Weight loss New onset hypothyroidism TSH 60 so 50mcg started on 50mcg on 08/11/21 Fever after COVID vaccine 08/13/21 resolved Plan: Inpatient rehab protocol Pain control Cardiology consult 08/05/2021: Supportive care Aggressive rehab Cardiology consult 08/06/2021: Supportive care Monitor blood pressure 08/07/2021: Intensive rehab Cardiology appreciated 08/08/21: Intensive rehab Reg diet 08/09/21: Supportive care Reg diet tolerated 08/10/21: Monitor weight loss Increase aggressive rehab 08/11/21: Thyroid supplement 08/12/21: Continue current care Aggressive rehab required 08/13/21: Monitor fever Synthroid 08/14/2021: Supportive care Synthroid 08/15/2021: Continue supportive care Discharge Monday (1) Chronic hypotension Assessment & Plan: Most likely related to profound weight loss ever since he was admitted to the hospital in April with Covid infection. He had been placed on midodrine in an outside facility. I had been attempting to wean this off. Due to low blood pressure which occurred when I change this to twice daily, I put this back to 3 times daily. He has now been found to have hypothyroidism. This could also be contributing to the hypotension. The primary provider will be starting him on thyroid medication. (2) Typical atrial flutter Assessment & Plan: His electrocardiograms on 08/05 and 08/07 showed atrial flutter with 4-1 AV block. I will continue amiodarone and apixaban. I do not see any urgent need for cardioversion. I may consider cardioversion after discharge. (3) Persistent atrial fibrillation Assessment & Plan: He had atrial fibrillation during his previous hospitalization in our hospital 4 months ago. He he is now in atrial flutter as above. I suspect he goes back and forth from atrial flutter and atrial fibrillation. We will proceed as above. (4) Mixed hyperlipidemia Assessment & Plan: He has a history of hyperlipidemia and was taking atorvastatin at home. Somewhere along the line during his prolonged hospitalization, the atorvastatin was discontinued. I restarted his atorvastatin. (5) History of deep venous thrombosis Assessment & Plan: He had deep venous thrombosis when he was in an outside hospital. An inferior vena cava filter was placed at that time for unclear reasons. He Is back on oral anticoagulation. I ordered an ultrasound in our hospital that did not show any evidence of deep venous thrombosis. Once he is discharged home, we can arrange to have the filter removed. I do not believe we have anyone in this hospital who can perform this procedure. (6) Presence of inferior vena cava filter Assessment & Plan: As above, once he is discharged from our hospital, we can see about making arrangements to have the filter removed. (7) Stage 3 chronic kidney disease Assessment & Plan: This will need to be followed longitudinally. There is no indication to adjust the dose of apixaban based on his renal function. COTY SHIPMAN DO Aug 15, 2021 08:36
[2021-08-15 08:57] VITALS: BP 89/56
[2021-08-15] MEDS: FAMOTIDINE 20 MG (PEPCID) TABLET PO SCH (09:01)
[2021-08-15] MEDS: APIXABAN 5 MG (ELIQUIS) TABLET PO SCH ×2 (09:01→20:33)
[2021-08-15] MEDS: MIDODRINE 10 MG (PROAMATINE) TAB PO SCH ×3 (09:01→18:18)
[2021-08-15] MEDS: LACTOBACILLUS ACIDOPHILUS (PROBIOTIC) CAPSULE PO SCH ×2 (09:01→20:33)
[2021-08-15] MEDS: GABAPENTIN 100 MG (NEURONTIN) CAP PO SCH ×3 (09:01→16:48)
[2021-08-15] MEDS: AMIODARONE 200 MG (CORDARONE) TAB PO SCH (09:02)
[2021-08-15] MEDS: DOCUSATE SODIUM 100 MG (COLACE) CAP PO SCH ×4 (09:05→20:35)
[2021-08-15] MEDS: SENNA W/DOCUSATE (SENOKOT S) TABLET PO SCH ×2 (09:05→20:36)
[2021-08-15] MEDS: polyethylene glycoL POWDER 17 GM (MIRALAX) PACK PO SCH ×2 (09:05→20:35)
[2021-08-15 13:47] VITALS: BP 107/61
[2021-08-15 20:04] VITALS: BP 98/59
[2021-08-15] MEDS: AtorvaSTATin TABLET 10 MG TABLET PO SCH (20:32)
[2021-08-16] MEDS: GABAPENTIN 100 MG (NEURONTIN) CAP PO SCH ×3 (00:14→15:57)
[2021-08-16 06:25] LABS: BASOPHILS # (AUTO) 0.1 10^3/uL (0.0-0.1); BASOPHILS % (AUTO) 1 % (0-10); EOSINOPHILS # (AUTO) 0.2 10^3/uL (0.0-0.3); EOSINOPHILS % (AUTO) 4 % (0-10); HEMATOCRIT 30 % (40-54); HEMOGLOBIN 9.8 g/dL (13.3-17.7); LYMPHOCYTES # (AUTO) 1.5 10^3/uL (1.0-4.0); LYMPHOCYTES % (AUTO) 28 % (12-44); MEAN CORPUSCULAR HEMOGLOBIN 31 pg (25-34); MEAN CORPUSCULAR HGB CONC 33 g/dL (32-36); MEAN CORPUSCULAR VOLUME 96 fL (80-99); MEAN PLATELET VOLUME 9.6 fL (9.0-12.2); MONOCYTES # (AUTO) 0.7 10^3/uL (0.0-1.0); MONOCYTES % (AUTO) 12 % (0-12); NEUTROPHILS % (AUTO) 54 % (42-75); PLATELET COUNT 312 10^3/uL (130-400); WHITE BLOOD COUNT 5.5 10^3/uL (4.3-11.0)
[2021-08-16 06:32] LABS: ALBUMIN 3.5 GM/DL (3.2-4.5); POTASSIUM 4.4 MMOL/L (3.6-5.0)
[2021-08-16 06:35] LABS: TOTAL PROTEIN 6.9 GM/DL (6.4-8.2)
[2021-08-16 06:36] LABS: BILIRUBIN,TOTAL 0.3 MG/DL (0.1-1.0)
[2021-08-16 06:38] LABS: CREATININE SERUM 1.48 MG/DL (0.60-1.30)
[2021-08-16] MEDS: LEVOTHYROXINE 50 MCG (LEVOTHROID) TAB PO SCH (06:48)
[2021-08-16] MEDS: MULTIVIT W/MINERALS TAB (THERAGRAN M) PO SCH (06:52)
[2021-08-16 07:56] VITALS: BP 93/54
[2021-08-16] MEDS: MIDODRINE 10 MG (PROAMATINE) TAB PO SCH ×3 (08:03→17:43)
[2021-08-16] MEDS: FAMOTIDINE 20 MG (PEPCID) TABLET PO SCH (08:04)
[2021-08-16] MEDS: LACTOBACILLUS ACIDOPHILUS (PROBIOTIC) CAPSULE PO SCH ×2 (08:04→20:51)
[2021-08-16] MEDS: APIXABAN 5 MG (ELIQUIS) TABLET PO SCH ×2 (08:04→20:51)
[2021-08-16] MEDS: AMIODARONE 200 MG (CORDARONE) TAB PO SCH (08:04)
[2021-08-16] MEDS: polyethylene glycoL POWDER 17 GM (MIRALAX) PACK PO SCH ×2 (08:11→19:50)
[2021-08-16] MEDS: SENNA W/DOCUSATE (SENOKOT S) TABLET PO SCH ×2 (08:11→19:50)
[2021-08-16] MEDS: DOCUSATE SODIUM 100 MG (COLACE) CAP PO SCH ×4 (08:11→19:50)
--- NOTE | 2021-08-16 08:32 | PM&R Progress Note ---
Subjective HPI/CC On Admission Date Seen by Provider: Aug 16, 2021 Time Seen by Provider: 09:00 Subjective/Events-last exam 08/16/21: Pt is doing a lot better Labs are okay Creatinine is 1.48 Had a huge BM on the commode yesterday Pt transfers better Given a pain pill before therapy No fever 08/15/2021: Patient doing very well No pain is reported Difficult transfer Ready for discharge on Monday08/14/2021: Patient doing really well No fever after Covid vaccine induced fever yesterday No evidence of sepsis Bowels moved yesterday Skin tears improved 08/13/21: Pt doing very well Thyroid tolerated Checked meds and labs Taking Tylenol for pain Fever noted after COVID vaccine 08/12/21: Pt is doing a lot better Thyroid medication discussed Pt in a good mood COVID vaccine will be given Blood pressure remains low 08/11/21: Pt is doing very well Bowels moved yesterday TSH checked due to Amiodarone maintenance and it was 60 so I started pt on 50 MCG daily DC the PEG tube yesterday done by Dr. Tracy Peralta will see pt IS ordered Thigh weakness is significant 08/10/21: Pt is doing well Pt appreciates Dr. Zhang seeing him Pt will see Dr. Molina to remove PEG tube placed on 04/30/21 Clearer thoughts but thought his was his mother Pt is getting protein shakes since he lost 60 lbs through Covid 08/09/21: Pt doing really well today. EKG shows Atrial Flutter Low bp at 87/54 no symptoms though Amiodarone ordered Dr. Zhang will evaluate EKG Creatine 1.53 No dysphasia 08/08/21: Patient doing well Changing diet to regular Trach residual causes no issues with swallowing BM+ 08/07/2021: Patient doing really well Stood with the help of the parallel bars Checked meds and labs No pain is reported 08/06/2021: Patient doing pretty well No significant issues Short-term recall may be altered Checked meds and labs 08/05/2021: Pt doing really well Hgb 9.6 Creatinine is baseline at 1.54 Had a large BM last night Overall doing well Review of Systems General: Fatigue, Malaise Objective Exam Vital Signs Vital Signs Date Time Temp Pulse Resp B/P (MAP) Pulse Ox O2 Delivery O2 Flow Rate FiO2 08/16/21 20:54 36.9 90 18 108/65 (79) 99 Room Air Capillary Refill : General Appearance: No Apparent Distress, WD/WN, Chronically ill, Thin HEENT: PERRL/EOMI, Normal ENT Inspection, Pharynx Normal Neck: Full Range of Motion, Normal Inspection, Non Tender, Supple, Carotid Bruit Respiratory: Chest Non Tender, Lungs Clear, Normal Breath Sounds, No Accessory Muscle Use, No Respiratory Distress Cardiovascular: Regular Rate, Rhythm, No Edema, No Gallop, No JVD, No Murmur, Normal Peripheral Pulses Gastrointestinal: Normal Bowel Sounds, No Organomegaly, No Pulsatile Mass, Non Tender, Soft Back: Normal Inspection, No CVA Tenderness, No Vertebral Tenderness Extremity: Normal Capillary Refill, Normal Inspection, Normal Range of Motion, Non Tender, No Calf Tenderness, No Pedal Edema Neurologic/Psychiatric: Alert, Oriented x3, No Motor/Sensory Deficits, Normal Mood/Affect, 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 FIM Transfers Therapy Code Descriptions/Definitions Functional [place] Measure: 0=Not Assessed/NA 4=Minimal Assistance 1=Total Assistance 5=Supervision or Setup 2=Maximal Assistance 6=Modified [place] 3=Moderate Assistance 7=Complete IndependenceSCALE: Activities may be completed with or without assistive devices. 2-Fnmgeazpeo-uhvcgdi completes the activity by him/herself with no assistance from a helper. 5-Set-up or Clean-up Assistance-helper sets up or cleans up; patient completes activity. [place] assists only prior to or following the activity. 4-Supervision or Touching Assistance-helper provides verbal cues and/or touching/steadying and/or contact guard assistance as patient completes activity. Assistance may be provided throughout the activity or intermittently. 3-Partial/Moderate Assistance-helper does LESS THAN HALF the effort. [place] lifts, holds or supports trunk or limbs, but provides less than half the effort. 2-Substantial/Maximal Assistance-helper does MORE THAN HALF the effort. [place] lifts or holds trunk or limbs and provides more than half the effort. 6-Jdocxpsvh-ownmgo does ALL the effort. Patient does none of the effort to comp lete the activity. Or, the assistance of 2 or more helpers is required for the patient to complete the activity. If activity was not attempted, code reason: 7-Patient Refused. 9-Not Applicable-not attempted and the patient did not perform the activity before the current illness, exacerbation or injury. 10-Not Attempted due to Environmental Limitations-(lack of equipment, weather restraints, etc.). 88-Not Attempted due to Medical Conditions or Safety Concerns. Roll Left to Right (QC): 6 Sit to Lying (QC): 3 Sit to Stand (QC): 3 Chair/Vmd-fi-Iqgjo Xfer(QC): 4 Car Transfer (QC): 1 Gait Training Does the Patient Walk?: Yes Distance: 20'x3 Walk 10 feet (QC): 3 Walk 50 ft with 2 Turns(QC): 88 Walk 150 ft (QC): 88 Walking 10ft/uneven surface-QC: 88 Gait Persons Needed: 1 Gait Assistive Device: FWW Wheelchair Training Does the Pt Use a Wheelchair?: Yes Wheel 50 ft with 2 turns (QC): 4 Wheel 150 ft (QC): 4 Type of Wheelchair: Manual Stair Training 1 Step (curb) (QC): 88 4 Steps (QC): 88 12 Steps (QC): 88 Balance Picking up an Object (QC): 88 ADL-Treatment Eating (QC): 6 (Per pt report, IND with lunch. ) Oral Hygiene (QC): 5 (per clincial judgment, set up with task.) Bathing Location: L Arm, R Arm, L Upper Leg, R Upper Leg, L Lower Leg (including foot), R Lower Leg (including foot), Chest, Abdomen, Buttocks, Perineal Area Shower/Bathe Self (QC): 5 (Set up and clean up in [place] with cutout, AE as needed.) Upper Body Dressing (QC): 5 (Donned/doffed shirt set up) Lower Body Dressing (QC): 1 (assist x2) On/Off Footwear (QC): 1 (total assist ) Toileting Hygiene (QC): 1 (sit to stand lift for clothing managment and hygiene.) Assessment/Plan Assessment and Plan Assess & Plan/Chief Complaint Assessment: Critical illness myopathy COVID-19 pneumonia April 2021 Status post ventilator dependence Atrial fibrillation during intubation Cardiac arrest x2 Previous smoker Weight loss New onset hypothyroidism TSH 60 so 50mcg started on 50mcg on 08/11/21 Fever after COVID vaccine 08/13/21 resolved Plan: Inpatient rehab protocol Pain control Cardiology consult 08/05/2021: Supportive care Aggressive rehab Cardiology consult 08/06/2021: Supportive care Monitor blood pressure 08/07/2021: Intensive rehab Cardiology appreciated 08/08/21: Intensive rehab Reg diet 08/09/21: Supportive care Reg diet tolerated 08/10/21: Monitor weight loss Increase aggressive rehab 08/11/21: Thyroid supplement 08/12/21: Continue current care Aggressive rehab required 08/13/21: Monitor fever Synthroid 08/14/2021: Supportive care Synthroid 08/15/2021: Continue supportive care Discharge Monday08/16/21: Monitor closely DC Mon (1) Chronic hypotension Assessment & Plan: Most likely related to profound weight loss ever since he was admitted to the hospital in April with Covid infection. He had been placed on midodrine in an outside facility. I had been attempting to wean this off. Due to low blood pressure which occurred when I change this to twice daily, I put this back to 3 times daily. He has now been found to have hypothyroidism. This could also be contributing to the hypotension. The primary provider will be starting him on thyroid medication. (2) Typical atrial flutter Assessment & Plan: His electrocardiograms on 08/05 and 08/07 showed atrial flutter with 4-1 AV block. I will continue amiodarone and apixaban. I do not see any urgent need for cardioversion. I may consider cardioversion after discharge. (3) Persistent atrial fibrillation Assessment & Plan: He had atrial fibrillation during his previous hos pitalization in our hospital 4 months ago. He he is now in atrial flutter as above. I suspect he goes back and forth from atrial flutter and atrial fibrillation. We will proceed as above. (4) Mixed hyperlipidemia Assessment & Plan: He has a history of hyperlipidemia and was taking atorvastatin at home. Somewhere along the line during his prolonged ho spitalization, the atorvastatin was discontinued. I restarted his atorvastatin. (5) History of deep venous thrombosis Assessment & Plan: He had deep venous thrombosis when he was in an outside hospital. An inferior vena cava filter was placed at that time for unclear reasons. He Is back on oral anticoagulation. I ordered an ultrasound in our hospital that did not show any evidence of deep venous thrombosis. Once he is discharged home, we can arrange to have the filter removed. I do not believe we have anyone in this hospital who can perform this procedure. (6) Presence of inferior vena cava filter Assessment & Plan: As above, once he is discharged from our hospital, we can see about making arrangements to have the filter removed. (7) Stage 3 chronic kidney disease Assessment & Plan: This will need to be followed longitudinally. There is no indication to adjust the dose of apixaban based on his renal function. COTY SHIPMAN DO Aug 16, 2021 08:32
--- NOTE | 2021-08-16 10:58 | Occupational Ther Daily Note ---
OT Current Status-Daily Note Subjective Pt agreeable to OT Tx, states L arm slightly sore from COVID vaccine. Family present for family training. Pt's family indicates pt would be alone with throughout the day, so will have to complete most of the transfers by herself. Mental Status/Objective Patient Orientation: Person, Place, Situation ADL-Treatment Therapy Code Descriptions/Definitions Functional [place] Measure: 0=Not Assessed/NA 4=Minimal Assistance 1=Total Assistance 5=Supervision or Setup 2=Maximal Assistance 6=Modified [place] 3=Moderate Assistance 7=Complete IndependenceSCALE: Activities may be completed with or without assistive devices. 5-Dcjetbpqyl-dtetkjk completes the activity by him/herself with no assistance from a helper. 5-Set-up or Clean-up Assistance-helper sets up or cleans up; patient completes activity. [place] assists only prior to or following the activity. 4-Supervision or Touching Assistance-helper provides verbal cues and/or touching/steadying and/or contact guard assistance as patient completes activity. Assistance may be provided throughout the activity or intermittently. 3-Partial/Moderate Assistance-helper does LESS THAN HALF the effort. [place] l ifts, holds or supports trunk or limbs, but provides less than half the effort. 2-Substantial/Maximal Assistance-helper does MORE THAN HALF the effort. [place] lifts or holds trunk or limbs and provides more than half the effort. 0-Hfnzhiayg-hnfzjf does ALL the effort. Patient does none of the effort to complete the activity. Or, the assistance of 2 or more helpers is required for t he patient to complete the activity. If activity was not attempted, code reason: 7-Patient Refused. 9-Not Applicable-not attempted and the patient did not perform the activity before the current illness, exacerbation or injury. 10-Not Attempted due to Environmental Limitations-(lack of equipment, weather restraints, etc.). 88-Not Attempted due to Medical Conditions or Safety Concerns. On/Off Footwear: 2 (Max A overall. Assist doffing/donning shoe, assist doffing gripper sock. Pt able to don Gripper sock using sock aide, min A.) Other Treatment OT/PT cotreat due to skill of 2 clinicians required which a rehab liaison could not perform in order to coordinate UE/LEs, decrease fall risk, and due to pt's limitations in strength, activity tolerance, mobility, transfers and balance. OT focused on UE placement, cues for sequencing and safety, community mobility and using ramps/elevator. PT focused on LE placement, gross overall movement, transfers/mobility. Pt in bed, transferred supine to sit EOB, then transferred to w/c. Pt taken to therapy gym, family educated on assistance pt requires with transfers including sit to stand transfers, SPT, bed transfer, and step. OT educated pt's family on assistance required with ADLs, including recommendation for 2 person to be present with LE dressing and toileting, one person to focus on balance while the 2nd focuses on clothing management. Pt performed functional mobility using w/c to elevators, down to 1st floor, and to ramp. Pt went up/down ramp in w/c, then returned to 2nd floor. Family educated on AE for LE dressing and footwear, they verbalize understanding. Pt's daughter and each participated in session, completing chair to chair transfers with pt, they verbalize and demonstrate understanding. Pt's family indicates pt and will primarily be alone during the day, so pt's would have to be able to complete most transfers by herself. Pt transferred to recliner post tx. Pt in recliner, call light in reach and all needs met. Education OT Patient Education: Correct positioning, Energy conservation, Exercise progr am, Modified ADL techniques, Progress toward Goal/Update tx plan, Purpose of tx/functional activities, Rehab process, Safety issues, Transfer techniques Teaching Recipient: Patient, Family, Significant Other Response to Teaching: Verbalize Understanding, Return Demonstration OT Short Term Goals Short Term Goals Time Frame: Aug 18, 2021 Toileting hygiene: 3 Shower/bathe self: 3 Upper body dressin Lower body dressin Putting on/taking off footwear: 3 OT Penitentiary Goals Penitentiary Goals Time Frame: Sep 03, 2021 Eating (QC): 6 Oral Hygiene (QC): 6 Toileting Hygiene (QC): 6 Shower/Bathe Self (QC): 6 Upper Body Dressing (QC): 6 Lower Body Dressing (QC): 6 On/Off Footwear (QC): 6 Additional Goals: 1-Demonstrate ADL Tasks, 2-Verbalize Understanding, 3- ImproveStrength/Glo 1=Demonstrate adherence to instructed precautions during ADL tasks. 2=Patient will verbalize/demonstrate understanding of assistive devices/modifications for ADL. 3=Patient will improve strength/tolerance for activity to enable patient to perform ADL's. OT Education/Plan Problem List/Assessment Assessment: Decreased Activ Tolerance, Decreased UE Strength, Impaired Coordination, Impaired Funct Balance, Impaired I ADL's, Impaired Self-Care Skills, Restricted Funct UE ROM Discharge Recommendations Plan/Recommendations: Continue POC Treatment Plan/Plan of Care Patient would benefit from OT for education, treatment and training to promote independence in ADL's, mobility, safety and/or upper extremity function for ADL's. Plan of Care: ADL Retraining, Functional Mobility, Group Exercise/Act as Ind, UE Funct Exercise/Act Treatment Duration: Sep 03, 2021 Frequency: At least 5 of 7 days/Wk (IRF) Estimated Hrs Per Day: 1.5 hours per day Agreement: Yes Rehab Potential: Fair Time/GCodes Start Time: 10:00 Stop Time: 11:00 Total Time Billed (hr/min): 60 Billed Treatment Time jr x60' 1, FA 4 ADAM FISHER OT Aug 16, 2021 10:58
--- NOTE | 2021-08-16 10:58 | Physical Therapy Daily Note ---
PT Daily Note-Current Subjective Patient in bed pre tx, agrees to PT, has no complaints of pain. Family is here for training. Will be co-treating with OT due to poor patient mobility, strength, endurance, severe debility, coordinate UE and LE during activity, safety and reduce risk of falls. Appearance Patient in recliner post tx with nurse call, phone, tray, all needs met. Mental Status Patient Orientation: Person, Place, Situation Transfers SCALE: Activities may be completed with or without assistive devices. 7-Irzgyijzdw-anyygbs completes the activity by him/herself with no assistance from a helper. 5-Set-up or Clean-up Assistance-helper sets up or cleans up; patient completes activity. [place] assists only prior to or following the activity. 4-Supervision or Touching Assistance-helper provides verbal cues and/or touching/steadying and/or contact guard assistance as patient completes activity. Assistance may be provided throughout the activity or intermittently. 3-Partial/Moderate Assistance-helper does LESS THAN HALF the effort. [place] lifts, holds or supports trunk or limbs, but provides less than half the effort. 2-Substantial/Maximal Assistance-helper does MORE THAN HALF the effort. [place] lifts or holds trunk or limbs and provides more than half the effort. 2-Iifbupmhu-ejdaro does ALL the effort. Patient does none of the effort to complete the activity. Or, the assistance of 2 or more helpers is required for the patient to complete the activity. If activity was not attempted, code reason: 7-Patient Refused. 9-Not Applicable-not attempted and the patient did not perform the activity before the current illness, exacerbation or injury. 10-Not Attempted due to Environmental Limitations-(lack of equipment, weather restraints, etc.). 88-Not Attempted due to Medical Conditions or Safety Concerns. Roll Left & Right (QC): 6 Sit to Lying (QC): 4 Lying to Sitting/Side of Bed(Q: 4 Sit to Stand (QC): 3 Chair/Rte-kk-Mdzzz Xfer(QC): 3 unsteady, slightly retropulsive with transfers but improved from last week Weight Bearing Full Weight Bearing Full Weight Bearing Gait Training Distance: 20'x2 Walk 10 feet (QC): 3 Gait Persons Needed: 1 Gait Assistive Device: FWW WC follow, unsteady, narrow ADE[place] Wheelchair Training Does the Pt Use a Wheelchair?: Yes Wheel 50 ft with 2 turns (QC): 4 Wheel 150 ft (QC): 4 Type of Wheelchair: Manual 300'x2, practiced going up and down a ramp, cues for technique Stair Training Stair Training: Handrails/: uses walker #of Steps: 1 1 Step (curb) (QC): 3 Patient went up and down 1 curb/step using a rolling walker with min assist Treatments PT worked on bed mobility and transfers, ambulation, stair training, gait training, WC mobility, OT worked on ADL's, UE positioning and safety during a ctivity, safety cues. Assessment Current Status: Fair Progress Slightly improved balance during transfers and ambulation PT Short Term Goals Short Term Goals Time Frame: Aug 11, 2021 Roll Left & Right: 6 Sit to lyin Lying to sitting on side of be: 3 Sit to stand: 2 Chair/jhl-qu-hjvaf transfer: 3 PT [facility] Goals Advertising Supervisor Goals PT Advertising Supervisor Goals Time Frame: Aug 25, 2021 Roll Left & Right (QC): 6 Sit to Lying (QC): 6 Lying-Sitting on Side/Bed(QC): 6 Sit to Stand (QC): 3 Chair/Jej-ay-Dfgdp Xfer(QC): 3 Toilet Transfer (QC): 3 Car Transfer (QC): 3 Does the Patient Walk: No and Walking Goal NOT indicated Walk 10 feet (QC): 88 Walk 50ft with 2 Turns (QC): 88 Walk 150 ft (QC): 88 Walking 10ft on Uneven Surface: 88 1 Step (curb) (QC): 88 4 Steps (QC): 88 12 Steps (QC): 88 Picking up an Object (QC): 88 Wheel 50 feet with 2 turns (QC: 6 Wheel 150 feet: 6 PT Plan Problem List Problem List: Activity Tolerance, Functional Strength, Safety, Balance, Gait, Transfer, Bed Mobility, ROM Treatment/Plan Treatment Plan: Continue Plan of Care Treatment Plan: Bed Mobility, Education, Functional Activity Glo, Functional Strength, Group Therapy, Gait, Safety, Therapeutic Exercise, Transfers Treatment Duration: Aug 25, 2021 Frequency: At least 5 of 7 days/Wk (IRF) Estimated Hrs Per Day: 1.5 hours per day Patient and/or Family Agrees t: Yes Safety Risks/Education Patient Education: Gait Training, Transfer Techniques, Correct Positioning, W/C Management, Safety Issues Teaching Recipient: Patient, Family Teaching Methods: Demonstration, Discussion Response to Teaching: Reinforcement Needed Patient's and daughter practiced transfers and bed mobility with direction from therapists. Time/GCodes Time In: 1000 Time Out: 1100 Total Billed Treatment Time: 60 Total Billed Treatment 1 visit FA 60' FLASH ALLEN PT Aug 16, 2021 10:58
--- NOTE | 2021-08-16 14:27 | Therapy Group Daily Note ---
Therapy Daily Group Note Patient Education Topic Other List Below (Memory, ARU description/expectations) Exercises LE Seated Exercise, UE Exercise Session Ratio (pt:therapist): 3:1 Goal of Session: Education on ARU Expectations, Memory Strategies, UE/LE Strengthing Goal Met for this Session: Yes Pt Benefit of Group: Contributions to Others, F/U Use of Strategies @Home, Increased Functional Safety, Increased Functional Strength, Improved Cognition, Recognition of Peers, Socialization Other/Notes Pt transported in w/c to [facility] for OT/PT group. Group consisted introductions (name, place living, coldest remembered winter), socialization, B UE/LE seated exercises, educational topics ARU description/expectations and memory (strategies, exercises and activity). Pt introduced self appropriately and actively listened to peers. Pt able to complete B UE/LE exercises and able to verbalize one for group to complete. Pt acknowledged understanding of educational topics by verbalizing own strategies and nodding head affirmatively. Pt participated in memory activity and make 2:2 matches. After therapy, pt lying in bed with call light/phone in reach. All needs met in room. Start Time: 13:00 Stop Time: 14:00 Total Billed Treatment Time: 60 Total Billed Treatment 1 visit-MICHI MONTEJO Aug 16, 2021 14:27
[2021-08-16] MEDS: AtorvaSTATin TABLET 10 MG TABLET PO SCH (20:51)
[2021-08-16 20:54] VITALS: BP 108/65
[2021-08-17] MEDS: GABAPENTIN 100 MG (NEURONTIN) CAP PO SCH ×3 (00:35→17:03)
--- NOTE | 2021-08-17 05:44 | PM&R Progress Note ---
Subjective HPI/CC On Admission Date Seen by Provider: Aug 17, 2021 Time Seen by Provider: 09:00 Subjective/Events-last exam 08/17/21: Pt doing well BP good Bowels are moving Discharge home tomorrow 08/16/21: Pt is doing a lot better Labs are okay Creatinine is 1.48 Had a huge BM on the commode yesterday Pt transfers better Given a pain pill before therapy No fever 08/15/2021: Patient doing very well No pain is reported Difficult transfer Ready for discharge on Monday08/14/2021: Patient doing really well No fever after Covid vaccine induced fever yesterday No evidence of sepsis Bowels moved yesterday Skin tears improved 08/13/21: Pt doing very well Thyroid tolerated Checked meds and labs Taking Tylenol for pain Fever noted after COVID vaccine 08/12/21: Pt is doing a lot better Thyroid medication discussed Pt in a good mood COVID vaccine will be given Blood pressure remains low 08/11/21: Pt is doing very well Bowels moved yesterday TSH checked due to Amiodarone maintenance and it was 60 so I started pt on 50 MCG daily DC the PEG tube yesterday done by Dr. Tracy Peralta will see pt IS ordered Thigh weakness is significant 08/10/21: Pt is doing well Pt appreciates Dr. Zhang seeing him Pt will see Dr. Molina to remove PEG tube placed on 04/30/21 Clearer thoughts but thought his was his mother Pt is getting protein shakes since he lost 60 lbs through Covid 08/09/21: Pt doing really well today. EKG shows Atrial Flutter Low bp at 87/54 no symptoms though Amiodarone ordered Dr. Zhang will evaluate EKG Creatine 1.53 No dysphasia 08/08/21: Patient doing well Changing diet to regular Trach residual causes no issues with swallowing BM+ 08/07/2021: Patient doing really well Stood with the help of the parallel bars Checked meds and labs No pain is reported 08/06/2021: Patient doing pretty well No significant issues Short-term recall may be altered Checked meds and labs 08/05/2021: Pt doing really well Hgb 9.6 Creatinine is baseline at 1.54 Had a large BM last night Overall doing well Review of Systems General: Fatigue, Malaise Objective Exam Vital Signs Vital Signs Date Time Temp Pulse Resp B/P (MAP) Pulse Ox O2 Delivery O2 Flow Rate FiO2 08/17/21 20:28 37.2 77 20 104/65 (78) 97 Room Air Capillary Refill : General Appearance: No Apparent Distress, WD/WN, Chronically ill, Thin HEENT: PERRL/EOMI, Normal ENT Inspection, Pharynx Normal Neck: Full Range of Motion, Normal Inspection, Non Tender, Supple, Carotid Bruit Respiratory: Chest Non Tender, Lungs Clear, Normal Breath Sounds, No Accessory Muscle Use, No Respiratory Distress Cardiovascular: Regular Rate, Rhythm, No Edema, No Gallop, No JVD, No Murmur, Normal Peripheral Pulses Gastrointestinal: Normal Bowel Sounds, No Organomegaly, No Pulsatile Mass, Non Tender, Soft Back: Normal Inspection, No CVA Tenderness, No Vertebral Tenderness Extremity: Normal Capillary Refill, Normal Inspection, Normal Range of Motion, Non Tender, No Calf Tenderness, No Pedal Edema Neurologic/Psychiatric: Alert, Oriented x3, No Motor/Sensory Deficits, Normal Mood/Affect, business services manager II-XII Norm as Tested, Motor Weakness Skin: Normal Color, Warm/Dry Lymphatic: No Adenopathy Results/Procedures Lab Patient resulted labs reviewed. FIM Transfers Therapy Code Descriptions/Definitions Functional [place] Measure: 0=Not Assessed/NA 4=Minimal Assistance 1=Total Assistance 5=Supervision or Setup 2=Maximal Assistance 6=Modified [place] 3=Moderate Assistance 7=Complete IndependenceSCALE: Activities may be completed with or without assistive devices. 2-Uasbtrirzg-jxsiftm completes the activity by him/herself with no assistance from a helper. 5-Set-up or Clean-up Assistance-helper sets up or cleans up; patient completes activity. [place] assists only prior to or following the activity. 4-Supervision or Touching Assistance-helper provides verbal cues and/or touching/steadying and/or contact guard assistance as patient completes activity. Assistance may be provided throughout the activity or intermittently. 3-Partial/Moderate Assistance-helper does LESS THAN HALF the effort. [place] lifts, holds or supports trunk or limbs, but provides less than half the effort. 2-Substantial/Maximal Assistance-helper does MORE THAN HALF the effort. [place] lifts or holds trunk or limbs and provides more than half the effort. 6-Wrpjrxkgt-akqjzg does ALL the effort. Patient does none of the effort to complete the activity. Or, the assistance of 2 or more helpers is required for the patient to complete the activity. If activity was not attempted, code reason: 7-Patient Refused. 9-Not Applicable-not attempted and the patient did not perform the activity before the current illness, exacerbation or injury. 10-Not Attempted due to Environmental Limitations-(lack of equipment, weather restraints, etc.). 88-Not Attempted due to Medical Conditions or Safety Concerns. Roll Left to Right (QC): 6 Sit to Lying (QC): 4 Sit to Stand (QC): 3 Chair/Hbc-oy-Qzmyc Xfer(QC): 3 Car Transfer (QC): 1 Gait Training Does the Patient Walk?: Yes Distance: 20'x2 Walk 10 feet (QC): 3 Walk 50 ft with 2 Turns(QC): 88 Walk 150 ft (QC): 88 Walking 10ft/uneven surface-QC: 88 Gait Persons Needed: 1 Gait Assistive Device: FWW Wheelchair Training Does the Pt Use a Wheelchair?: Yes Wheel 50 ft with 2 turns (QC): 4 Wheel 150 ft (QC): 4 Type of Wheelchair: Manual Stair Training Stair Training: Handrails/: uses walker #of Steps: 1 1 Step (curb) (QC): 3 4 Steps (QC): 88 12 Steps (QC): 88 Balance Picking up an Object (QC): 88 ADL-Treatment Eating (QC): 6 (Per pt report, IND with lunch. ) Oral Hygiene (QC): 5 (per clincial judgment, set up with task.) Bathing Location: L Arm, R Arm, L Upper Leg, R Upper Leg, L Lower Leg (including foot), R Lower Leg (including foot), Chest, Abdomen, Buttocks, Perineal Area Shower/Bathe Self (QC): 5 (Set up and clean up in SC with cutout, AE as needed.) Upper Body Dressing (QC): 5 (Donned/doffed shirt set up) Lower Body Dressing (QC): 1 (assist x2) On/Off Footwear (QC): 2 (Max A overall. Assist doffing/donning shoe, assist doffing gripper sock. Pt able to don Gripper sock using sock aide, min A.) Toileting Hygiene (QC): 1 (sit to stand lift for clothing managment and hygiene.) Assessment/Plan Assessment and Plan Assess & Plan/Chief Complaint Assessment: Critical illness myopathy COVID-19 pneumonia April 2021 Status post ventilator dependence Atrial fibrillation during intubation Cardiac arrest x2 Previous smoker Weight loss New onset hypothyroidism TSH 60 so 50mcg started on 50mcg on 08/11/21 Fever after COVID vaccine 08/13/21 resolved Plan: Inpatient rehab protocol Pain control Cardiology consult 08/05/2021: Supportive care Aggressive rehab Cardiology consult 08/06/2021: Supportive care Monitor blood pressure 08/07/2021: Intensive rehab Cardiology appreciated 08/08/21: Intensive rehab Reg diet 08/09/21: Supportive care Reg diet tolerated 08/10/21: Monitor weight loss Increase aggressive rehab 08/11/21: Thyroid supplement 08/12/21: Continue current care Aggressive rehab required 08/13/21: Monitor fever Synthroid 08/14/2021: Supportive care Synthroid 08/15/2021: Continue supportive care Discharge Monday08/16/21: Monitor closely DC Mon08/17/21: Monitor closely DC tomorrow (1) Chronic hypotension Assessment & Plan: Most likely related to profound weight loss ever since he was admitted to the hospital in April with Covid infection. He had been placed on midodrine in an outside facility. I had been attempting to wean this off. Due to low blood pressure which occurred when I change this to twice daily, I put this back to 3 times daily. He has now been found to have hypothyroidism. This could also be contributing to the hypotension. The primary provider will be starting him on thyroid medication. (2) Typical atrial flutter Assessment & Plan: His electrocardiograms on 08/05 and 08/07 showed atrial flutter with 4-1 AV block. I will continue amiodarone and apixaban. I do not see any urgent need for cardioversion. I may consider cardioversion after discharge. (3) Persistent atrial fibrillation Assessment & Plan: He had atrial fibrillation during his previous hospitalization in our hospital 4 months ago. He he is now in atrial flutter as above. I suspect he goes back and forth from atrial flutter and atrial fibrillation. We will proceed as above. (4) Mixed hyperlipidemia Assessment & Plan: He has a history of hyperlipidemia and was taking atorvastatin at home. Somewhere along the line during his prolonged hospitalization, the atorvastatin was discontinued. I restarted his atorvasta tin. (5) History of deep venous thrombosis Assessment & Plan: He had deep venous thrombosis when he was in an outside hospital. An inferior vena cava filter was placed at that time for unclear reasons. He Is back on oral anticoagulation. I ordered an ultrasound in our hospital that did not show any evidence of deep venous thrombosis. Once he is discharged home, we can arrange to have the filter removed. I do not believe we have anyone in this hospital who can perform this procedure. (6) Presence of inferior vena cava filter Assessment & Plan: As above, once he is discharged from our hospital, we can see about making arrangements to have the filter removed. (7) Stage 3 chronic kidney disease Assessment & Plan: This will need to be followed longitudinally. There is no indication to adjust the dose of apixaban based on his renal function. COTY SHIPMAN DO Aug 17, 2021 05:44
[2021-08-17] MEDS: LEVOTHYROXINE 50 MCG (LEVOTHROID) TAB PO SCH (06:21)
[2021-08-17] MEDS: MULTIVIT W/MINERALS TAB (THERAGRAN M) PO SCH (06:21)
[2021-08-17 07:34] VITALS: BP 109/63
[2021-08-17] MEDS: MIDODRINE 10 MG (PROAMATINE) TAB PO SCH ×3 (07:54→17:03)
[2021-08-17] MEDS: LACTOBACILLUS ACIDOPHILUS (PROBIOTIC) CAPSULE PO SCH ×2 (07:54→20:06)
[2021-08-17] MEDS: FAMOTIDINE 20 MG (PEPCID) TABLET PO SCH (07:55)
[2021-08-17] MEDS: APIXABAN 5 MG (ELIQUIS) TABLET PO SCH ×2 (07:55→20:05)
[2021-08-17] MEDS: AMIODARONE 200 MG (CORDARONE) TAB PO SCH (07:55)
[2021-08-17] MEDS: polyethylene glycoL POWDER 17 GM (MIRALAX) PACK PO SCH ×2 (09:00→20:34)
[2021-08-17] MEDS: SENNA W/DOCUSATE (SENOKOT S) TABLET PO SCH ×2 (09:00→20:34)
[2021-08-17] MEDS: DOCUSATE SODIUM 100 MG (COLACE) CAP PO SCH ×4 (09:00→20:33)
--- NOTE | 2021-08-17 10:15 | Physical Therapy Daily Note ---
PT Daily Note-Current Subjective Patient in bed pre tx, agrees to PT, has no complaints of pain. Will be co- treating with OT due to poor patient mobility, strength, endurance, severe debility, coordinate UE and LE during activity, safety and reduce risk of falls. Appearance Patient in recliner post tx with nurse call, phone, tray, all needs met. Mental Status Patient Orientation: Person, Place, Situation Transfers SCALE: Activities may be completed with or without assistive devices. 5-Pqqsybaryu-oewlijd completes the activity by him/herself with no assistance from a helper. 5-Set-up or Clean-up Assistance-helper sets up or cleans up; patient completes activity. [place] assists only prior to or following the activity. 4-Supervision or Touching Assistance-helper provides verbal cues and/or touching/steadying and/or contact guard assistance as patient completes activity. Assistance may be provided throughout the activity or intermittently. 3-Partial/Moderate Assistance-helper does LESS THAN HALF the effort. [place] lifts, holds or supports trunk or limbs, but provides less than half the effort. 2-Substantial/Maximal Assistance-helper does MORE THAN HALF the effort. [place] lifts or holds trunk or limbs and provides more than half the effort. 7-Meuffrccl-fycplj does ALL the effort. Patient does none of the effort to complete the activity. Or, the assistance of 2 or more helpers is required for the patient to complete the activity. If activity was not attempted, code reason: 7-Patient Refused. 9-Not Applicable-not attempted and the patient did not perform the activity before the current illness, exacerbation or injury. 10-Not Attempted due to Environmental Limitations-(lack of equipment, weather restraints, etc.). 88-Not Attempted due to Medical Conditions or Safety Concerns. Roll Left & Right (QC): 6 Sit to Lying (QC): 6 Lying to Sitting/Side of Bed(Q: 6 Sit to Stand (QC): 3 Chair/Fcp-wq-Wsgme Xfer(QC): 3 Toilet Transfer (QC): 3 Car Transfer (QC): 4 Patient performs bed mobility and supine <-> sit with independence, sit <-> stand and transfers with min assist, car transfer CGA. Patient still needs assist with balance and has slight retropulsion with standing and transfers. Weight Bearing Full Weight Bearing Full Weight Bearing Gait Training Distance: 80' Walk 10 feet (QC): 3 Walk 50 ft with 2 Turns(QC): 3 Gait Persons Needed: 1 Gait Assistive Device: FWW Patient can ambulate 80' with a rolling walker with min assist (including 50' with at least 2 turns of 90 degrees and 10' over an uneven surface), he is unsteady with ambulation, has a narrow ADELE, often almost tripping over his own feet, min assist for balance Wheelchair Training Does the Pt Use a Wheelchair?: Yes Wheel 50 ft with 2 turns (QC): 6 Wheel 150 ft (QC): 6 Type of Wheelchair: Manual Patient can propel a manual WC 300' with independence, needs occasional rest break Stair Training Stair Training: Handrails/: uses walker #of Steps: 1 1 Step (curb) (QC): 3 4 Steps (QC): 88 12 Steps (QC): 88 Stairs: Pattern: Step to Patient can go up and down 1 step using a rolling walker with min assist, cues for positioning and safety. Balance Picking up an Object (QC): 4 (using floriculturist) Exercises standing exercise in parallel bars stacking and unstacking cones and working on endurance and balance Treatments PT performed bed mobility and transfers, ambulation, stair training, gait training, standing activity, positioning and safety and transfers during bathing and dressing, OT performed bathing, dressing, ADL's, UE positioning and safety during activity Assessment Current Status: Fair Progress seems to have slight improvement in functional mobility every day, still unsteady with standing and transfers and ambulation thought, needs assist PT Short Term Goals Short Term Goals Time Frame: Aug 11, 2021 Roll Left & Right: 6 Sit to lyin Lying to sitting on side of be: 3 Sit to stand: 2 Chair/sll-vx-clzpe transfer: 3 PT Supervisor [employer] Goals Mc[facility] Goals PT Supervisor [employer] Goals Time Frame: Aug 25, 2021 Roll Left & Right (QC): 6 Sit to Lying (QC): 6 Lying-Sitting on Side/Bed(QC): 6 Sit to Stand (QC): 3 Chair/Nwa-uq-Avmrl Xfer(QC): 3 Toilet Transfer (QC): 3 Car Transfer (QC): 3 Does the Patient Walk: No and Walking Goal NOT indicated Walk 10 feet (QC): 88 Walk 50ft with 2 Turns (QC): 88 Walk 150 ft (QC): 88 Walking 10ft on Uneven Surface: 88 1 Step (curb) (QC): 88 4 Steps (QC): 88 12 Steps (QC): 88 Picking up an Object (QC): 88 Wheel 50 feet with 2 turns (QC: 6 Wheel 150 feet: 6 PT Plan Problem List Problem List: Activity Tolerance, Functional Strength, Safety, Balance, Gait, Transfer, Bed Mobility, ROM Treatment/Plan Treatment Plan: Continue Plan of Care Treatment Plan: Bed Mobility, Education, Functional Activity Glo, Functional Strength, Group Therapy, Gait, Safety, Therapeutic Exercise, Transfers Treatment Duration: Aug 25, 2021 Frequency: At least 5 of 7 days/Wk (IRF) Estimated Hrs Per Day: 1.5 hours per day Patient and/or Family Agrees t: Yes Safety Risks/Education Patient Education: Gait Training, Transfer Techniques, Steps, Correct Positioning, Safety Issues Teaching Recipient: Patient Teaching Methods: Demonstration, Discussion Response to Teaching: Reinforcement Needed Time/GCodes Time In: 0900 Time Out: 1015 Total Billed Treatment Time: 75 Total Billed Treatment 1 visit FA 75' FLASH ALLEN PT Aug 17, 2021 10:15
--- NOTE | 2021-08-17 10:16 | Occupational Ther Daily Note ---
OT Current Status-Daily Note Subjective Pt supine in bed. Pt agreeable to OT tx. Mental Status/Objective Patient Orientation: Person, Place, Situation ADL-Treatment Therapy Code Descriptions/Definitions Functional [place] Measure: 0=Not Assessed/NA 4=Minimal Assistance 1=Total Assistance 5=Supervision or Setup 2=Maximal Assistance 6=Modified [place] 3=Moderate Assistance 7=Complete IndependenceSCALE: Activities may be completed with or without assistive devices. 6-Dpmbfwhzkv-birkedj completes the activity by him/herself with no assistance from a helper. 5-Set-up or Clean-up Assistance-helper sets up or cleans up; patient completes activity. [place] assists only prior to or following the activity. 4-Supervision or Touching Assistance-helper provides verbal cues and/or touching/steadying and/or contact guard assistance as patient completes activity. Assistance may be provided throughout the activity or intermittently. 3-Partial/Moderate Assistance-helper does LESS THAN HALF the effort. [place] lifts, holds or supports trunk or limbs, but provides less than half the effort. 2-Substantial/Maximal Assistance-helper does MORE THAN HALF the effort. [place] lifts or holds trunk or limbs and provides more than half the effort. 5-Hdhexwfgu-udtzrf does ALL the effort. Patient does none of the effort to complete the activity. Or, the assistance of 2 or more helpers is required for the patient to complete the activity. If activity was not attempted, code reason: 7-Patient Refused. 9-Not Applicable-not attempted and the patient did not perform the activity before the current illness, exacerbation or injury. 10-Not Attempted due to Environmental Limitations-(lack of equipment, weather restraints, etc.). 88-Not Attempted due to Medical Conditions or Safety Concerns. Eating (QC): 5 (set up per pt report. Pt unable to open Ensure drinks. He is able to use utensils, cut food and open all other containers.) Oral Hygiene (QC): 5 (Set up.) Bathing Location: L Arm, R Arm, L Upper Leg, R Upper Leg, L Lower Leg (including foot), R Lower Leg (including foot), Chest, Abdomen, Buttocks, Perineal Area Shower/Bathe Self (QC): 4 (SBA.) Upper Body Dressing (QC): 5 (Set up.) Lower Body Dressing (QC): 1 (total assist. ) On/Off Footwear: 1 (total assist) Toileting Hygiene (QC): 4 (SBA.) Toilet Transfer (QC): 4 (CGA.) Other Treatment OT/PT [place]reat due to skill of 2 clinicians required which a rehabilitation program manager could not perform in order to coordinate UE/LEs, decrease fall risk, and due to pt's limitations in strength, activity tolerance, mobility, transfers and balance. OT focused on UE placement, cues for sequencing and safety. PT focused on LE placement, gross overall movement, transfers/mobility. Pt supine in bed, transitioned EOB to SC, FWW. Pt taken to bathroom, doffed shirt independently, doffed pants and socks, total assist, completed showering, donned shirt independently, donned pants, socks and shoes, AE, assistance needed to put sock on sock aid and pull onto RLE. Pt propelled W/C to car in commons area and c ompleted car transfer, functional mobility with FWW, to therapy gym, no rest breaks. Pt performed functional mobility/transfers with FWW, on/off curb step, rest break, then on/off uneven surface. Pt worked on standing balance while using cap blocker to paster supervisor an object. Pt propelled W/C to windows on 2nd floor and back to therapy gym (300' IND). Pt stood in standing bars and stacked/unstacked 10 cones x3, no rest break, primarily using RUE with task. Pt propelled back to room. Pt in recliner, call light in reach and all needs met. IND with bed mobility and supine <-> sit transfers, Min A sit <-> stand transfers, CGA car transfers. Pt slightly retropulsive with stands and transfers. Education OT Patient Education: Correct positioning, Energy conservation, Modified ADL techniques, Progress toward Goal/Update tx plan, Purpose of tx/functional activities, Rehab process, Use of adapted equipment Teaching Recipient: Patient Teaching Methods: Discussion Response to Teaching: Verbalize Understanding, Reinforcement Needed OT Short Term Goals Short Term Goals Time Frame: Aug 18, 2021 Toileting hygiene: 3 Shower/bathe self: 3 Upper body dressin Lower body dressin Putting on/taking off footwear: 3 OT Selenium Plant Operator Goals [facility] Goals Time Frame: Sep 03, 2021 Eating (QC): 6 (not met) Oral Hygiene (QC): 6 (not met) Toileting Hygiene (QC): 6 (not met) Shower/Bathe Self (QC): 6 (not met) Upper Body Dressing (QC): 6 (not met) Lower Body Dressing (QC): 6 (not met) On/Off Footwear (QC): 6 (not met) Additional Goals: 1-Demonstrate ADL Tasks, 2-Verbalize Understanding, 3- ImproveStrength/Glo 1=Demonstrate adherence to instructed precautions during ADL tasks. 2=Patient will verbalize/demonstrate understanding of assistive devices/modifications for ADL. 3=Patient will improve strength/tolerance for activity to enable patient to perform ADL's. OT Education/Plan Problem List/Assessment Assessment: Decreased Activ Tolerance, Decreased UE Strength, Impaired Coordination, Impaired Funct Balance, Impaired I ADL's, Impaired Self-Care Skills Discharge Recommendations Plan/Recommendations: Continue POC Treatment Plan/Plan of Care Patient would benefit from OT for education, treatment and training to promote independence in ADL's, mobility, safety and/or upper extremity function for ADL's. Plan of Care: ADL Retraining, Functional Mobility, Group Exercise/Act as Ind, UE Funct Exercise/Act Treatment Duration: Sep 03, 2021 Frequency: At least 5 of 7 days/Wk (IRF) Estimated Hrs Per Day: 1.5 hours per day Agreement: Yes Rehab Potential: Fair Time/GCodes Start Time: 09:00 Stop Time: 10:15 Total Time Billed (hr/min): 75 Billed Treatment Time [place] 75' 1, ADL (20'), FA 4 (55') ADAM FISHER OT Aug 17, 2021 10:16
--- NOTE | 2021-08-17 13:18 | Speech Therapy Daily Note ---
Speech Daily Progress Note Subjective Time Seen by Provider: 11:00 The pt was pleasant and cooperative. Pt states he is planning for discharge tomorrow and is very eager to get home as he has been in the hospital for 4 months. Objective Pt was oriented x4 with no cues provided. Pt completed a functional delayed reca ll task with 80% accy. Pt indicates he feels he is doing a lot better cognitively and just hopes to get stronger so he doesnt have to use walker. Assessment Assessment Current Status: Good Progress Treatment Plan Continue Plan of Care Speech Short Term Goals Short Term Goals Short Term Goals 1. The patient will participate and complete memory exercises with 80% accuracy, independently. 2. The patient will complete functional problem solving tasks with 80% accuracy, independently. Time Frame-STG: Two Weeks Speech Gas Engine Mechanic Goals Gas Engine Mechanic Goals 1. The patient will demonstrate improved cognitive linguistic function for return and discharge to the least restrictive environment. Time Frame: Three Weeks Speech-Plan Treatment Plan Speech Therapy Treatment Plan: Continue Plan of Care Treatment Duration: Sep 02, 2021 Frequency: 4 times per week (Four to five times per week.) Estimated Hrs Per Day: .5 hour per day Rehab Potential: Fair Time Speech Therapy Time In: 11:00 Speech Therapy Time Out: 11:30 Billed Treatment Time 30 mins 1, CLARENCE TIAN Aug 17, 2021 13:18
[2021-08-17] MEDS: AtorvaSTATin TABLET 10 MG TABLET PO SCH (20:05)
[2021-08-17 20:28] VITALS: BP 104/65
[2021-08-18] MEDS: GABAPENTIN 100 MG (NEURONTIN) CAP PO SCH ×3 (01:01→17:20)
[2021-08-18] MEDS: MULTIVIT W/MINERALS TAB (THERAGRAN M) PO SCH (06:48)
[2021-08-18] MEDS: LEVOTHYROXINE 50 MCG (LEVOTHROID) TAB PO SCH (06:48)
[2021-08-18] MEDS ORDERED: MIDO10TA PO (06:55)
[2021-08-18] MEDS ORDERED: MULT-1137 PO (06:56)
[2021-08-18] MEDS ORDERED: OXYC1TAB87 PO (06:56)
[2021-08-18] MEDS ORDERED: ATOR10TA66 PO (06:56)
[2021-08-18] MEDS ORDERED: LEVO50TA PO (06:56)
[2021-08-18] MEDS ORDERED: AMIO200T65 PO (06:56)
[2021-08-18] MEDS ORDERED: GABA-486 PO (06:56)
[2021-08-18] MEDS ORDERED: APIX5TAB PO (06:56)
[2021-08-18] MEDS ORDERED: FAMO20TA5 PO (06:56)
--- NOTE | 2021-08-18 06:57 | D/C HH Face to Face Order ---
D/C HH Face to Face Orders Reconcile Patient Problems Problems Reviewed?: Yes Instructions for Patient HH Patient Instructions/FollowUp: PCP 1 week Physician to follow Patient: PCP Discharge Diet for Home: No Restrictions Patient Problems: Post COVID New hypothyroidism Patient Data-Allergies,Ht & Wt Patient Allergies: Coded Allergies: No Known Drug Allergies (Unverified , 03/11/11) Home Health Need/Face to Face Date of Face to Face: Aug 18, 2021 Clinical Findings: Generalized weakness and fatigue, Instability, Muscle weakness, Unsteady gait I have seen Pt [id number]: Yes Discharged To: Home Diagnosis/Conditions: Post COVID New hypothyroidism Patient is Homebound due to: Anisha fall risk due to instabilty, Muscle weakness Homebound Status Due to the above stated illness, injury or surgical procedure (medical condition or diagnosis) and associated clinical findings, the patient is homebound because of his/her inability to leave home except with aid of a supportive device and/or person AND leaving the home requires a considerable and taxing effort or is medically contraindicated. Pt req the following assistanc: Walker, Wheelchair Home Health Nursing Orders Home Health Services Order: Nursing Services, [place]-Evaluate & Treat, Physical Therapy-Evaluate & Treat Certify Stmt I certify that this patient is under my care and that I, a nurse practitioner or a physician; a talent acquisition assistant working with me, had a face to face encounter that - meets the physician face to face encounter requirements with this patient as dated. COTY SHIPMAN DO Aug 18, 2021 06:57
--- NOTE | 2021-08-18 06:58 | Discharge Summary ---
Diagnosis/Chief Complaint Date of Admission Aug 04, 2021 at 12:10 Date of Discharge Discharge Date: Aug 18, 2021 Discharge Diagnosis Assessment: Critical illness myopathy COVID-19 pneumonia April 2021 Status post ventilator dependence Atrial fibrillation during intubation Cardiac arrest x2 Previous smoker Weight loss New onset hypothyroidism TSH 60 so 50mcg started on 50mcg on 08/11/21 Fever after COVID vaccine 08/13/21 resolved Plan: Inpatient rehab protocol Pain control Cardiology consult 08/05/2021: Supportive care Aggressive rehab Cardiology consult 08/06/2021: Supportive care Monitor blood pressure 08/07/2021: Intensive rehab Cardiology appreciated 08/08/21: Intensive rehab Reg diet 08/09/21: Supportive care Reg diet tolerated 08/10/21: Monitor weight loss Increase aggressive rehab 08/11/21: Thyroid supplement 08/12/21: Continue current care Aggressive rehab required 08/13/21: Monitor fever Synthroid 08/14/2021: Supportive care Synthroid 08/15/2021: Continue supportive care Discharge Monday08/16/21: Monitor closely DC Mon08/17/21: Monitor closely DC tomorrow (1) Chronic hypotension Assessment & Plan: Most likely related to profound weight loss ever since he was admitted to the hospital in April with Covid infection. He had been placed on midodrine in an outside facility. I had been attempting to wean this off. Due to low blood pressure which occurred when I change this to twice daily, I put this back to 3 times daily. He has now been found to have hypothyroidism. This could also be contributing to the hypotension. The primary provider will be starting him on thyroid medication. (2) Typical atrial flutter Assessment & Plan: His electrocardiograms on 08/05 and 08/07 showed atrial flutter with 4-1 AV block. I will continue amiodarone and apixaban. I do not see any urgent need for cardioversion. I may consider cardioversion after discharge. (3) Persistent atrial fibrillation Assessment & Plan: He had atrial fibrillation during his previous hospitalization in our hospital 4 months ago. He he is now in atrial flutter as above. I suspect he goes back and forth from atrial flutter and atrial fibrillation. We will proceed as above. (4) Mixed hyperlipidemia Assessment & Plan: He has a history of hyperlipidemia and was taking atorvastatin at home. Somewhere along the line during his prolonged hospitalization, the atorvastatin was discontinued. I restarted his a torvastatin. (5) History of deep venous thrombosis Assessment & Plan: He had deep venous thrombosis when he was in an outside hospital. An inferior vena cava filter was placed at that time for unclear reasons. He Is back on oral anticoagulation. I ordered an ultrasound in our hospital that did not show any evidence of deep venous thrombosis. Once he is discharged home, we can arrange to have the filter removed. I do not believe we have anyone in this hospital who can perform this procedure. (6) Presence of inferior vena cava filter Assessment & Plan: As above, once he is discharged from our hospital, we can see about making arrangements to have the filter removed. (7) Stage 3 chronic kidney disease Assessment & Plan: This will need to be followed longitudinally. There is no indication to adjust the dose of apixaban based on his renal function. Discharge Summary Discharge Physical Examination Allergies: Coded Allergies: No Known Drug Allergies (Unverified , 03/11/11) Vitals & I&Os Vital Signs Date Time Temp Pulse Resp B/P (MAP) Pulse Ox O2 Delivery O2 Flow Rate FiO2 08/18/21 17:30 36.6 52 16 91/55 97 Room Air General Appearance: Alert, Oriented X3, Cooperative Respiratory: Clear to Auscultation Cardiovascular: Regular Rate Psych/Mental Status: Mental Status NL Hospital Course Was the Problem List Reviewed?: Yes Pt had a lengthy hospital course for 15 days after surviving Covid and in the hospital for 3 months on a ventilator after trach and PEG were discontinued. Pt was found to have hypothyroidism with TSH at 60, supplement was initiated at 50 MCG daily. Cardiology saw him. Maintain on Amiodarone of 100 mg daily. He will have close follow up with his load out worker as discharge. HH was ordered. Labs (last 24 hrs) Laboratory Tests 08/05/21 05:27: White Blood Count 6.1, Red Blood Count 3.13L, Hemoglobin 9.6L, Hematocrit 30L, Mean Corpuscular Volume 96, Mean Corpuscular Hemoglobin 31, Mean Corpuscular Hemoglobin Concent 32, Red Cell Distribution Width 17.6H, Platelet Count 335, Mean Platelet Volume 9.4, Immature Granulocyte % (Auto) 1, Neutrophils (%) (Auto) 55, Lymphocytes (%) (Auto) 33, Monocytes (%) (Auto) 9, Eosinophils (%) (Auto) 1, Basophils (%) (Auto) 2, Neutrophils # (Auto) 3.4, Lymphocytes # (Auto) 2.0, Monocytes # (Auto) 0.5, Eosinophils # (Auto) 0.1, Basophils # (Auto) 0.1, Immature Granulocyte # (Auto) 0.0, Sodium Level 142, Potassium Level 4.1, Chloride Level 106, Carbon Dioxide Level 25, Anion Gap 11, Blood Urea Nitrogen 21H, Creatinine 1.54H, Estimat Glomerular Filtration Rate 44, BUN/Creatinine Ratio 14, Glucose Level 76, Calcium Level 8.8, Corrected Calcium 9.4, Total Bilirubin 0.4, Aspartate Amino Transf (AST/SGOT) 17, Alanine Aminotransferase (ALT/SGPT) 13, Alkaline Phosphatase 63, Total Protein 6.5, Albumin 3.3 08/06/21 06:27: Sodium Level 139, Potassium Level 4.1, Chloride Level 106, Carbon Dioxide Level 22, Anion Gap 11, Blood Urea Nitrogen 19H, Creatinine 1.44H, Estimat Glomerular Filtration Rate 48, BUN/Creatinine Ratio 13, Glucose Level 79, Calcium Level 8.8 08/09/21 05:31: White Blood Count 7.4, Red Blood Count 3.58L, Hemoglobin 10.9L, Hematocrit 34L, Mean Corpuscular Volume 94, Mean Corpuscular Hemoglobin 30, Mean Corpuscular Hemoglobin Concent 32, Red Cell Distribution Width 17.0H, Platelet Count 334, Mean Platelet Volume 9.3, Immature Granulocyte % (Auto) 0, Neutrophils (%) (Auto) 59, Lymphocytes (%) (Auto) 29, Monocytes (%) (Auto) 9, Eosinophils (%) (Auto) 2, Basophils (%) (Auto) 1, Neutrophils # (Auto) 4.4, Lymphocytes # (Auto) 2.2, Monocytes # (Auto) 0.6, Eosinophils # (Auto) 0.1, Basophils # (Auto) 0.1, Immature Granulocyte # (Auto) 0.0, Sodium Level 140, Potassium Level 4.1, Chloride Level 105, Carbon Dioxide Level 23, Anion Gap 12, Blood Urea Nitrogen 28H, Creatinine 1.53H, Estimat Glomerular Filtration Rate 45, BUN/Creatinine Ratio 18, Glucose Level 83, Calcium Level 9.6, Corrected Calcium 9.9, Total Bilirubin 0.5, Aspartate Amino Transf (AST/SGOT) 19, Alanine Aminotransferase (ALT/SGPT) 14, Alkaline Phosphatase 61, Total Protein 6.8, Albumin 3.6 08/11/21 11:05: Thyroid Stimulating Hormone (TSH) 60.98H 08/16/21 05:19: White Blood Count 5.5, Red Blood Count 3.12L, Hemoglobin 9.8L, Hematocrit 30L, Mean Corpuscular Volume 96, Mean Corpuscular Hemoglobin 31, Mean Corpuscular Hemoglobin Concent 33, Red Cell Distribution Width 16.4H, Platelet Count 312, Mean Platelet Volume 9.6, Immature Granulocyte % (Auto) 1, Neutrophils (%) (Auto) 54, Lymphocytes (%) (Auto) 28, Monocytes (%) (Auto) 12, Eosinophils (%) (Auto) 4, Basophils (%) (Auto) 1, Neutrophils # (Auto) 3.0, Lymphocytes # (Auto) 1.5, Monocytes # (Auto) 0.7, Eosinophils # (Auto) 0.2, Basophils # (Auto) 0.1, Immature Granulocyte # (Auto) 0.1, Sodium Level 138, Potassium Level 4.4, Chloride Level 103, Carbon Dioxide Level 24, Anion Gap 11, Blood Urea Nitrogen 35H, Creatinine 1.48H, Estimat Glomerular Filtration Rate 46, BUN/Creatinine Ratio 24, Glucose Level 84, Calcium Level 9.0, Corrected Calcium 9.4, Total Bilirubin 0.3, Aspartate Amino Transf (AST/SGOT) 24, Alanine Aminotransferase (ALT/SGPT) 19, Alkaline Phosphatase 59, Total Protein 6.9, Albumin 3.5 Pending Labs Laboratory Tests 08/05/21 05:27: White Blood Count 6.1, Red Blood Count 3.13, Hemoglobin 9.6, Hematocrit 30, Mean Corpuscular Volume 96, Mean Corpuscular Hemoglobin 31, Mean Corpuscular Hemoglobin Concent 32, Red Cell Distribution Width 17.6, Platelet Count 335, Mean Platelet Volume 9.4, Immature Granulocyte % (Auto) 1, Neutrophils (%) (Auto) 55, Lymphocytes (%) (Auto) 33, Monocytes (%) (Auto) 9, Eosinophils (%) (Auto) 1, Basophils (%) (Auto) 2, Neutrophils # (Auto) 3.4, Lymphocytes # (Auto) 2.0, Monocytes # (Auto) 0.5, Eosinophils # (Auto) 0.1, Basophils # (Auto) 0.1, Immature Granulocyte # (Auto) 0.0, Sodium Level 142, Potassium Level 4.1, Chloride Level 106, Carbon Dioxide Level 25, Anion Gap 11, Blood Urea Nitrogen 21, Creatinine 1.54, Estimat Glomerular Filtration Rate 44, BUN/Creatinine Ratio 14, Glucose Level 76, Calcium Level 8.8, Corrected Calcium 9.4, Total Bilirubin 0.4, Aspartate Amino Transf (AST/SGOT) 17, Alanine Aminotransferase (ALT/SGPT) 13, Alkaline Phosphatase 63, Total Protein 6.5, Albumin 3.3 08/06/21 06:27: Sodium Level 139, Potassium Level 4.1, Chloride Level 106, Carbon Dioxide Level 22, Anion Gap 11, Blood Urea Nitrogen 19, Creatinine 1.44, Estimat Glomerular Filtration Rate 48, BUN/Creatinine Ratio 13, Glucose Level 79, Calcium Level 8.8 08/09/21 05:31: White Blood Count 7.4, Red Blood Count 3.58, Hemoglobin 10.9, Hematocrit 34, Mean Corpuscular Volume 94, Mean Corpuscular Hemoglobin 30, Mean Corpuscular Hemoglobin Concent 32, Red Cell Distribution Width 17.0, Platelet Count 334, Mean Platelet Volume 9.3, Immature Granulocyte % (Auto) 0, Neutrophils (%) (Auto) 59, Lymphocytes (%) (Auto) 29, Monocytes (%) (Auto) 9, Eosinophils (%) (Auto) 2, Basophils (%) (Auto) 1, Neutrophils # (Auto) 4.4, Lymphocytes # (Auto) 2.2, Monocytes # (Auto) 0.6, Eosinophils # (Auto) 0.1, Basophils # (Auto) 0.1, Immature Granulocyte # (Auto) 0.0, Sodium Level 140, Potassium Level 4.1, Chloride Level 105, Carbon Dioxide Level 23, Anion Gap 12, Blood Urea Nitrogen 28, Creatinine 1.53, Estimat Glomerular Filtration Rate 45, BUN/Creatinine Ratio 18, Glucose Level 83, Calcium Level 9.6, Corrected Calcium 9.9, Total Bilirubin 0.5, Aspartate Amino Transf (AST/SGOT) 19, Alanine Aminotransferase (ALT/SGPT) 14, Alkaline Phosphatase 61, Total Protein 6.8, Albumin 3.6 08/11/21 11:05: Thyroid Stimulating Hormone (TSH) 60.98 08/16/21 05:19: White Blood Count 5.5, Red Blood Count 3.12, Hemoglobin 9.8, Hematocrit 30, Mean Corpuscular Volume 96, Mean Corpuscular Hemoglobin 31, Mean Corpuscular Hemoglobin Concent 33, Red Cell Distribution Width 16.4, Platelet Count 312, Mean Platelet Volume 9.6, Immature Granulocyte % (Auto) 1, Neutrophils (%) (Auto) 54, Lymphocytes (%) (Auto) 28, Monocytes (%) (Auto) 12, Eosinophils (%) (Auto) 4, Basophils (%) (Auto) 1, Neutrophils # (Auto) 3.0, Lymphocytes # (Auto) 1.5, Monocytes # (Auto) 0.7, Eosinophils # (Auto) 0.2, Basophils # (Auto) 0.1, Immature Granulocyte # (Auto) 0.1, Sodium Level 138, Potassium Level 4.4, Chloride Level 103, Carbon Dioxide Level 24, Anion Gap 11, Blood Urea Nitrogen 35, Creatinine 1.48, Estimat Glomerular Filtration Rate 46, BUN/Creatinine Ratio 24, Glucose Level 84, Calcium Level 9.0, Corrected Calcium 9.4, Total Bilirubin 0.3, Aspartate Amino Transf (AST/SGOT) 24, Alanine Aminotransferase (ALT/SGPT) 19, Alkaline Phosphatase 59, Total Protein 6.9, Albumin 3.5 Discharge Home Medications: Active Scripts Active Tab-A-Yessy Multivit with Iron (Multivitamin/Iron/Folic Acid) 1 Each Tablet 1 Ea PO DAILY@0700 Synthroid (Levothyroxine Sodium) 50 Mcg Tablet 50 Mcg PO DAILY@0630 Famotidine 20 Mg Tablet 20 Mg PO BID Gabapentin 100 Mg Capsule 100 Mg PO TID Percocet 5-325 mg Tablet (Oxycodone HCl/Acetaminophen) 1 Each Tablet 1 Tab PO Q6H PRN Atorvastatin Calcium 10 Mg Tablet 10 Mg PO HS Amiodarone HCl 200 Mg Tablet 100 Mg PO DAILY Eliquis (Apixaban) 5 Mg Tablet 5 Mg PO BID Midodrine HCl 10 Mg Tablet 5 Mg PO TIDWM Instructions to patient/family Please see electronic discharge instructions given to patient. Diagnosis/Problems Diagnosis/Problems (1) Myopathy (2) Acute respiratory failure due to COVID-19 Status: Acute (3) Hypercoagulable state associated with COVID-19 Status: Acute (4) Persistent atrial fibrillation (5) Mixed hyperlipidemia (6) HAYDE (acute kidney injury) Status: Acute COTY SHIPMAN DO Aug 18, 2021 06:58
[2021-08-18 07:44] VITALS: BP 91/55
[2021-08-18] MEDS: FAMOTIDINE 20 MG (PEPCID) TABLET PO SCH (07:44)
[2021-08-18] MEDS: LACTOBACILLUS ACIDOPHILUS (PROBIOTIC) CAPSULE PO SCH (07:44)
[2021-08-18] MEDS: MIDODRINE 10 MG (PROAMATINE) TAB PO SCH ×3 (07:44→17:20)
[2021-08-18] MEDS: APIXABAN 5 MG (ELIQUIS) TABLET PO SCH (07:44)
[2021-08-18] MEDS: AMIODARONE 200 MG (CORDARONE) TAB PO SCH (07:45)
--- NOTE | 2021-08-18 08:37 | Therapy Team Discharge Summary ---
Therapy Discharge Summary Discharge Recommendations Date of Discharge Occupational Therapy Pt admitted to ARU with critical illness myopathy. At [facility], he was independent with ADLs and functional mobility, no AD/AE, and was still working at his local [employer]. Upon initial evaluation, pt was independent with eating, required set up assist with oral care, min A upper body dressing, and total assist with showering, LE dressing, footwear and toileting. OT Tx focused on increasing BUE strength and activity tolerance, increasing independence with ADLs and functional mobility, and increasing independence with w/c mobility to use around home and in community. At discharge pt required set up assistance with eating (assist only to open Ensure bottle), set up with oral care and set up upper body dressing, SBA showering, max A footwear and total assist lower body dressing and toileting. Pt made functional progress towards goals, but did not attain. OT recommendations include continued OT home health services, [place], semi driver and sock aide. Pt to discharge from facility to home, d/c from OT. Decreased Activ Tolerance, Decreased UE Strength, Impaired Coordination, Impaired Funct Balance, Impaired I ADL's, Impaired Self-Care Skills PT Licensing Court Magistrate Goals Licensing Court Magistrate Goals PT Assisted Goals Time Frame: Aug 25, 2021 Roll Left to Right (QC): 6 Sit to Lying (QC): 6 Lying-Sitting on Side/Bed(QC): 6 Sit to Stand (QC): 3 Chair/Irw-en-Oeryd Xfer(QC): 3 Car Transfer (QC): 3 Does the Patient Walk: No and Walking Goal NOT indicated Walk 10 feet (QC): 88 Walk 10ft-Uneven Surface(QC): 88 Walk 50ft with 2 Turns (QC): 88 Walk 150 ft (QC): 88 Wheel 50 feet with 2 turns (QC: 6 1 Step (curb) (QC): 88 4 Steps (QC): 88 12 Steps (QC): 88 Picking up an Object (QC): [address] Go[address] Magistrate Goals Time Frame: Sep 03, 2021 Eating (QC): 6 (not met) Oral Hygiene (QC): 6 (not met) Shower/Bathe Self (QC): 6 (not met) Upper Body Dressing (QC): 6 (not met) Lower Body Dressing (QC): 6 (not met) On/Off Footwear (QC): 6 (not met) Toileting Hygiene (QC): 6 (not met) Toilet/Commode Transfer (QC): 3 Additional Goals: 1-Demonstrate ADL Tasks, 2-Verbalize Understanding, 3- ImproveStrength/Glo 1=Demonstrate adherence to instructed precautions during ADL tasks. 2=Patient will verbalize/demonstrate understanding of assistive devices/modifications for ADL. 3=Patient will improve strength/tolerance for activity to enable patient to perform ADL's. Speech Assisted Goals Assisted Goals 1. The patient will demonstrate improved cognitive linguistic function for return and discharge to the least restrictive environment. Time Frame: Three Weeks ADAM FISHER OT Aug 18, 2021 08:37
[2021-08-18] MEDS: DOCUSATE SODIUM 100 MG (COLACE) CAP PO SCH ×2 (09:28→09:29)
[2021-08-18] MEDS: polyethylene glycoL POWDER 17 GM (MIRALAX) PACK PO SCH (09:29)
[2021-08-18] MEDS: SENNA W/DOCUSATE (SENOKOT S) TABLET PO SCH (09:29)
--- NOTE | 2021-08-18 11:00 | Therapy Team Discharge Summary ---
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 Upon evaluation patient rolls independently, supine to sit mod assist, sit to supine min assist, sit to stand dependent, transfers dependent (using sit to stand machine), car transfer dependent, and could propel a manual WC 150' with SBA. Patient has been performing bed mobility and transfer training, balance and endurance training, functional strengthening, gait training, stair training, and education. 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 Now, patient performs bed mobility and supine <-> sit with independence, sit <-> stand and transfers with min assist, car transfer CGA, ambulate 80' with a rolling walker with min assist (including 50' with at least 2 turns of 90 degrees and 10' over an uneven surface), propel a manual WC 300' with independence, can go up and down 1 step using a rolling walker with min assist, and can continuous pickling line pickler helper an object from the floor using a propagation worker with CGA. Patient is being discharged from this facility today and will be discharged from PT at this time. 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 Time Frame: Aug 25, 2021 Roll Left to Right (QC): 6 Sit to Lying (QC): 6 Lying-Sitting on Side/Bed(QC): 6 Sit to Stand (QC): 3 Chair/Izp-tw-Adoif Xfer(QC): 3 Car Transfer (QC): 3 Does the Patient Walk: No and Walking Goal NOT indicated Walk 10 feet (QC): 88 Walk 10ft-Uneven Surface(QC): 88 Walk 50ft with 2 Turns (QC): 88 Walk 150 ft (QC): 88 Wheel 50 feet with 2 turns (QC: 6 1 Step (curb) (QC): 88 4 Steps (QC): 88 12 Steps (QC): 88 Picking up an Object (QC): 88 OT Cafeteria Team Leader Goals Cafeteria Team Leader Goals Time Frame: Sep 03, 2021 Eating (QC): 6 (not met) Oral Hygiene (QC): 6 (not met) Shower/Bathe Self (QC): 6 (not met) Upper Body Dressing (QC): 6 (not met) Lower Body Dressing (QC): 6 (not met) On/Off Footwear (QC): 6 (not met) Toileting Hygiene (QC): 6 (not met) Toilet/Commode Transfer (QC): 3 Additional Goals: 1-Demonstrate ADL Tasks, 2-Verbalize Understanding, 3- ImproveStrength/Glo 1=Demonstrate adherence to instructed precautions during ADL tasks. 2=Patient will verbalize/demonstrate understanding of assistive devices/modifications for ADL. 3=Patient will improve strength/tolerance for activity to enable patient to perform ADL's. Speech Retirement Goals Retirement Goals 1. The patient will demonstrate improved cognitive linguistic function for return and discharge to the least restrictive environment. Time Frame: Three Weeks FLASH ALLEN PT Aug 18, 2021 11:00
[2021-08-18 17:30] VITALS: BP 91/55
== END 2021-08-18 17:32 | disposition home health service (06) | DRG 92 ==
PROVIDERS: ADMIT Internal Medicine; ATTEND Internal Medicine
PROC: 0DP6XUZ Removal of Feeding Device from Stomach, External Approach (ICD-10-PCS; principal; 2021-08-10)
DX: G72.81 Critical illness myopathy (principal); I48.19 Other persistent atrial fibrillation; Z68.1 Body mass index [BMI] 19.9 or less, adult; D68.69 Other thrombophilia; I48.3 Typical atrial flutter; U09.9 Post COVID-19 condition, unspecified; E78.00 Pure hypercholesterolemia, unspecified; I12.9 Hypertensive chronic kidney disease with stage 1 through stage 4 chronic kidney disease, or unspecified chronic kidney disease; N18.30 Chronic kidney disease, stage 3 unspecified; K21.9 Gastro-esophageal reflux disease without esophagitis; E78.2 Mixed hyperlipidemia; R63.4 Abnormal weight loss; I95.9 Hypotension, unspecified; I44.39 Other atrioventricular block; E03.9 Hypothyroidism, unspecified; B35.1 Tinea unguium; M20.41 Other hammer toe(s) (acquired), right foot; R50.9 Fever, unspecified; Z87.891 Personal history of nicotine dependence; Z79.899 Other long term (current) drug therapy; Z86.718 Personal history of other venous thrombosis and embolism; Z86.74 Personal history of sudden cardiac arrest; Z87.01 Personal history of pneumonia (recurrent); Z23 Encounter for immunization
CPT/HCPCS: 36415; 80048; 80053; 84443; 85025; 91300; 93005; 93970; 94664

== ENCOUNTER → 2021-09-16 | Outpatient (CLI) | payer BC, MEDICARE ==
[~2021-09-16] MED LIST changes: +AMIO200T65 PO; +CATHETER FLUSH 10 ML SYR IV PRN; +DOCU100C37 PO; +FAMO20TA5 PO; +FOLI0.8T21 PO; +GABA-486 PO; +HEPA500018 IJ; +LACT1CAP76 PO; +LEVO50TA PO; +MENT6OIN2 TP; +MIDO10TA PO; +MIDO5TAB3 PO; +MULT-1137 PO; +OXYC1TAB11 PO; +OXYC1TAB87 PO; +POLY17PO6 PO; +REGADENOSON 0.4 MG/5 ML SYR (LEXISCAN) IV ONE
[2021-09-16 13:47] VITALS: BP 143/92
--- NOTE | 2021-09-16 18:49 | NUCLEAR STRESS TEST ---
REGADENOSON NUCLEAR STRESS Date of procedure: 09/16/2021. Primary care provider: No local physician Admitting physician: Rigo Zhang Jr., MD. INDICATION: Persistent atrial fibrillation. BASELINE ELECTROCARDIOGRAM: Atrial flutter with variable AV block with a ventricular rate of 101 bpm with incomplete right bundle branch block. STRESS TEST PROCEDURE: The patient was administered 0.4 mg of intravenous Regadenoson. The resting heart rate was 101 bpm and the peak heart rate was 131 bpm. The resting blood pressure was 143/92 mmHg and the minimum blood pressure was 114/84 mmHg. This represents a normal heart rate and a normal blood pressure response to Regadenoson. The test was stopped due to the protocol. There was no chest discomfort during the test. The patient was in atrial flutter for the duration of the test. There were no significant stress induced electrocardiogram changes. NUCLEAR PROCEDURE: The patient was administered 7.3 mCi of intravenous technetium 99m Tetrofosmin at rest for the rest images. The patient was subsequently administered 25.4 mCi of intravenous technetium 99m Tetrofosmin at peak stress for the stress images. Following an appropriate wait after each injection, imaging was obtained. The images were subsequently processed and reformatted in the usual views. Gated imaging was obtained. The image quality was adequate with a mild degree of gastrointestinal attenuation artifact. CT attenuation correction was used as a adjunct to standard imaging. Both the corrected and uncorrected images were reviewed for interpretation. NUCLEAR RESULTS: There was normal myocardial perfusion in all segments without evidence of infarction or ischemia. There was normal left ventricular chamber size with an end-diastolic volume of 88 mL and an end-systolic volume of 41 mL. There was no evidence of transient ischemic dilatation. The TID ratio was 1.1. There was normal wall motion in all segments with a calculated ejection fraction of 53%. IMPRESSION: 1. Normal heart rate and blood pressure response to regadenoson. 2. There was no chest discomfort or electrocardiogram changes during the test. 3. The patient was in atrial flutter with variable AV block for the duration of the test. 4. There was normal myocardial perfusion in all segments without evidence of infarction or ischemia. 5. There was normal wall motion in all segments with a calculated ejection fraction of 53%. Certain portions of this document may have been dictated utilizing voice recognition technology. Inherent to this technology, typographical and grammatical errors may exist. As much as I am diligent to identify and correct these mistakes, some errors may remain in the document. RIGO ZHANG JR, MD Sep 16, 2021 18:49
== END ==
LOC: CARD 11:30
PROVIDERS: ATTEND Internal Medicine Cardiovascular Disease
DX: I48.19 Other persistent atrial fibrillation (principal); I08.3 Combined rheumatic disorders of mitral, aortic and tricuspid valves
CPT/HCPCS: 78452; 93017; 93306

== ENCOUNTER → 2021-10-12 | Outpatient (CLI) | payer BC, MEDICARE ==
[~2021-10-12] MED LIST changes: -CATHETER FLUSH 10 ML SYR IV PRN; -REGADENOSON 0.4 MG/5 ML SYR (LEXISCAN) IV ONE
[2021-10-12 15:56] LABS: POTASSIUM 4.7 MMOL/L (3.6-5.0)
[2021-10-12 15:57] LABS: CALCIUM 9.3 MG/DL (8.5-10.1); CREATININE SERUM 1.5 MG/DL (0.60-1.30)
== END ==
LOC: LAB FS 14:18
PROVIDERS: ATTEND Internal Medicine Cardiovascular Disease
DX: I48.19 Other persistent atrial fibrillation (principal); I48.3 Typical atrial flutter; E78.2 Mixed hyperlipidemia; I95.89 Other hypotension; E44.1 Mild protein-calorie malnutrition; N18.31 Chronic kidney disease, stage 3a; Z95.828 Presence of other vascular implants and grafts
CPT/HCPCS: 36415; 80048

== ENCOUNTER → 2021-10-13 | Outpatient (CLI) | payer BC ==
[2021-10-13 14:14] LABS: CALCIUM 9.6 MG/DL (8.5-10.1); CREATININE SERUM 1.58 MG/DL (0.60-1.30); POTASSIUM 4.8 MMOL/L (3.6-5.0)
== END ==
LOC: LAB FS 13:10
PROVIDERS: ATTEND Internal Medicine Cardiovascular Disease
DX: I48.19 Other persistent atrial fibrillation (principal); I48.3 Typical atrial flutter; E78.2 Mixed hyperlipidemia; I95.89 Other hypotension; E44.1 Mild protein-calorie malnutrition; N18.31 Chronic kidney disease, stage 3a; Z95.828 Presence of other vascular implants and grafts
CPT/HCPCS: 36415; 80048

== ENCOUNTER → 2021-10-14 | Outpatient (CLI) | payer BC ==
[2021-10-14 15:25] LABS: CALCIUM 9.1 MG/DL (8.5-10.1); CREATININE SERUM 1.65 MG/DL (0.60-1.30); POTASSIUM 4.8 MMOL/L (3.6-5.0)
== END ==
LOC: LAB FS 13:05
PROVIDERS: ATTEND Internal Medicine Cardiovascular Disease
DX: I48.19 Other persistent atrial fibrillation (principal); I48.3 Typical atrial flutter; E78.2 Mixed hyperlipidemia; I95.89 Other hypotension; E44.1 Mild protein-calorie malnutrition; N18.31 Chronic kidney disease, stage 3a; Z95.828 Presence of other vascular implants and grafts
CPT/HCPCS: 36415; 80048

== ENCOUNTER → 2021-10-21 | Day surgery (SDC) | payer BC ==
[~2021-10-21] MED LIST changes: +CATHETER FLUSH 10 ML SYR IV PRN; +NS IV 1000 ML 0 ML ONE; +NS IV 1000 ML 1,000 ML IV ONE
== END | disposition home or self-care (01) ==
LOC: CATH 10:10
PROVIDERS: ATTEND Internal Medicine Cardiovascular Disease
DX: I48.19 Other persistent atrial fibrillation (principal); I48.3 Typical atrial flutter; E78.2 Mixed hyperlipidemia; I95.89 Other hypotension; E44.1 Mild protein-calorie malnutrition; Z95.828 Presence of other vascular implants and grafts; N18.31 Chronic kidney disease, stage 3a; Z79.899 Other long term (current) drug therapy; Z53.8 Procedure and treatment not carried out for other reasons; Z86.16 Personal history of COVID-19
CPT/HCPCS: 93005